=== PATIENT | female | born 1940 | race Caucasian/White ===

== ENCOUNTER 2021-12-21 08:52 | Outpatient (CLI) | payer MEDICARE, SELFPAY ==
--- NOTE | 2021-12-21 09:00 | CRLHL7_ITS ---
For Patients: As a result of the Century Cures Act, medical imaging exams and procedure reports are released immediately into your electronic medical record. You may view this report before your referring provider. If you have questions, please contact your health care provider. MYOCARDIAL PERFUSION SCAN CLINICAL HISTORY: 81-year-old female with dyspnea on exertion. TECHNIQUE: (Resting SPECT and Stress Gated SPECT with wall motion and ejection fraction) Stress: Pharmacologic - Regadenoson (0.4 mg) (IV) Dose (Stress/Rest): 32.0 mCi / 8.8 mCi Tc-99m Sestamibi Comparison: None FINDINGS: There is good uptake of the radiotracer by the left ventricle. There is no left ventricular dilatation. There is a small fixed defect identified in the apical inferolateral wall of the left ventricle consistent with a small nontransmural infarct. No significant reversible changes are identified to suggest significant ischemic. No other significant perfusion abnormalities are noted. Gated images demonstrate left ventricular ejection fraction to visually calculate at 65 percent. There is no focal wall motion abnormality. IMPRESSION: 1. No evidence for significant myocardial ischemia. 2. 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 3. Normal left ventricular ejection fraction is identified at 65 percent. This study was jointly reviewed by radiology and cardiology. Alin Mcduffie M.D. Diagnostic/Nuclear Medicine Radiologist [email or web address] PRR/logan HENRY M.D. Department of Cardiology logan/Dictated by: Alin Mcduffie MD @ 12/21/2021 2:33:00 PM (Electronically Signed)
[2021-12-21] MEDS: SODIUM CHLORIDE 0.9 % (FLUSH) 10 ML SYRINGE IVF (10:25)
[2021-12-21] MEDS: REGADENOSON 0.4 MG/5 ML SYRINGE IVP (10:25)
[2021-12-21 10:40] VITALS: BP 143/74; PULSE 69
--- NOTE | 2021-12-21 12:16 | PM.ST ---
Stress Test Note Date Time Seen by Provider: :34 Date Seen: 12/21/21 Date of test: 12/21/21 Providers Referring provider: Lance Solis Primary care provider: Andrew Rodríguez Stress test physician: Keeley Gupta Stress Test Note Stress test ordered: Lexiscan Indication for test: Dyspnea on exertion Stress test medicine: Lexiscan Results discussion: Resting EKG: Sinus bradycardia, 57 beats per minute Resting blood pressure: 172/84 Stress test: Patient had a non walking Lexiscan. She briefly felt short of breath with the medication, near the end maybe felt a sore throat but no chest pain. There were no arrhythmias, no concerning EKG changes on the stress test. She remained hypertensive during the stress test. Await nuclear images to couple this for a full formal diagnostic. Impression: Subjectively negative, objectively negative EKG portion of the Lexiscan. Follow up suggested: Await nuclear images. Patient discharged to home in stable condition.
== END 2021-12-21 08:53 | disposition home or self-care (01) ==
LOC: STRESS 08:53
PROVIDERS: PCP Family Medicine; Visit Provider Internal Medicine Cardiovascular Disease
DX: R06.09 Other forms of dyspnea (principal); I21.9 Acute myocardial infarction, unspecified
CPT/HCPCS: 78452; 93016; 93017; A9500; J2785

== ENCOUNTER 2022-01-02 12:54 | Outpatient (CLI) | payer MEDICARE, SELFPAY ==
[2022-01-02 16:05] LABS: Chloride* 104 mmol/L (96-114); Potassium* 4.7 mmol/L (3.6-5.1); Sodium* 141 mmol/L (135-149)
[2022-01-02 16:08] LABS: Blood Urea Nitrogen* 24 mg/dL (7-30); Carbon Dioxide* 25 mmol/L (20-32); Creatinine* 1.4 mg/dL (0.5-1.5); Estimated Glomerular Filt Rate 38 ml/min; Glucose* 174 mg/dL (60-115)
[2022-01-02 16:09] LABS: Calcium* 9.6 mg/dL (8.4-10.6)
[2022-01-02 16:40] LABS: Ferritin* 13.6 ng/mL (11.1-264.0)
== END 2022-01-02 12:55 | disposition home or self-care (01) ==
PROVIDERS: PCP Family Medicine; Visit Provider Family Medicine
DX: E03.9 Hypothyroidism, unspecified (principal); D50.9 Iron deficiency anemia, unspecified; I10 Essential (primary) hypertension; E11.9 Type 2 diabetes mellitus without complications; M10.9 Gout, unspecified
CPT/HCPCS: 80048; 82728; 84443

== ENCOUNTER 2022-01-03 16:02 | Emergency (ER) | payer MEDICARE, SELFPAY ==
[2022-01-03 16:17] VITALS: BP 192/72; PULSE 56; RESP 18; TEMP 36.3; O2SAT 98; BMI 36.9
--- NOTE | 2022-01-03 16:27 | ED_ITS ---
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 10 mEq (1,080 mg) tablet extended release 10 meq PO BID Qty: 60 5RF allopurinol 100 mg tablet 200 mg PO QDAY Qty: 180 2RF lamotrigine 25 mg tablet 25 mg PO QDAY polysaccharide iron complex 150 mg iron capsule 150 mg PO Q OTHER DAY <Yesenia Altman MD - Last Filed: 01/03/22 20:12> Follow Up/Referrals: Andrew Rodríguez MD [Primary Care Provider] - <Yesenia Altman MD - Last Filed: 01/03/22 20:12> Stand Alone Forms: MyHealth Info Instructions <Yesenia Altman MD - Last Filed: 01/03/22 20:12> Procedures Ultrasound Cardiac exam #1: Anatomical areas examined: parasternal long and parasternal short <Vickey Mata MD - Last Filed: 01/03/22 22:02> Indications: other <Vickey Mata MD - Last Filed: 01/03/22 22:02> Exam type: limited transthoracic echocardiogram <Vickey Mata MD - Last Filed: 01/03/22 22:02> Impression: negative exam <Vickey Mata MD - Last Filed: 01/03/22 22:02>
[2022-01-03 16:30] VITALS: BP 158/70; PULSE 53; RESP 18; O2SAT 98
[2022-01-03 16:54] VITALS: O2SAT 97
--- NOTE | 2022-01-03 16:56 | CRLHL7_ITS ---
For Patients: As a result of the Century Cures Act, medical imaging exams and procedure reports are released immediately into your electronic medical record. You may view this report before your referring provider. If you have questions, please contact your health care provider. Indication: Multiple falls Technique: Volumetric multidetector CT images of the head were obtained without the administration of low osmolar intravenous contrast. Comparison: None available Findings: There is no intra-axial or extra-axial fluid collection. There is no mass effect or midline shift. There is age-related cortical atrophy with moderate sulcal widening and ex vacuo dilatation of the lateral ventricles. There are chronic small vessel disease changes in the subcortical and periventricular white matter without lost lincoln-white differentiation. The orbits and their contents are grossly within normal limits. The bony calvarium is grossly intact. The paranasal sinuses are clear. The mastoid air cells are well aerated. Impression: Moderate age-related and chronic small-vessel disease changes of the brain without acute intracranial abnormality. Please note that all CT scans at this facility use dose modulation, iterative reconstruction, and/or weight-based dosing when appropriate to reduce radiation dose to as low as reasonably achievable. Dictated by Benja Tran MD @ 01/03/2022 5:55:25 PM (Electronically Signed)
--- NOTE | 2022-01-03 16:56 | CRLHL7_ITS ---
For Patients: As a result of the Century Cures Act, medical imaging exams and procedure reports are released immediately into your electronic medical record. You may view this report before your referring provider. If you have questions, please contact your health care provider. Indication: Multiple falls Comparison: Two-view chest August 25, 2021 Technique: Single AP view chest Findings: There is hyperinflation and chronic interstitial change. There is a mildly elevated right hemidiaphragm. There is basilar atelectasis and parenchymal scar with mild biapical pleural thickening. There is no evidence of dense consolidation or effusion. The cardiac silhouette is stably enlarged with a tortuous thoracic aorta. The bony thorax is grossly intact. Impression: Hyperinflation and chronic interstitial changes with basilar atelectasis and parenchymal scar. Dictated by Benja Tran MD @ 01/03/2022 5:56:30 PM (Electronically Signed)
[2022-01-03 17:26] LABS: Basophils Percent Auto 0.8 % (0.0-3.0); Eosinophils Percent Auto 2.9 % (0.0-7.0); Hematocrit 34.1 % (33.0-51.0); Hemoglobin* 10.2 gm/dL (12.0-16.0); Lymphocytes Percent Auto 16.5 % (20-44); Mean Corpuscular HGB Conc 30 gm/dL (32-36); Mean Corpuscular Hemoglobin 25 pg (26-34); Mean Corpuscular Volume 85 fL (80-100); Monocytes Percent Auto 7.3 % (0.0-11.0); Neutrophils Percent Auto 72.2 % (42.0-72.0); Platelet Count* 227 K/uL (140-440); Red Blood Count 4.03 m/uL (4.00-5.20); Slide Review Reflex No; White Blood Count* 6.26 K/uL (4.50-11.00)
[2022-01-03 18:00] VITALS: BP 157/65; PULSE 51; RESP 18; O2SAT 99
[2022-01-03 18:01] LABS: Chloride* 106 mmol/L (96-114); Potassium* 4.3 mmol/L (3.6-5.1); Sodium* 139 mmol/L (135-149)
[2022-01-03 18:02] LABS: Alanine Aminotransferase* 32 U/L (4-35); Alkaline Phosphatase* 92 U/L (40-150); Aspartate Amino Transferase* 45 U/L (12-35); Bilirubin Total* 0.4 mg/dL (0.1-1.5); Blood Urea Nitrogen* 20 mg/dL (7-30); Calcium* 9.3 mg/dL (8.4-10.6); Carbon Dioxide* 25 mmol/L (20-32); Creatinine* 1.3 mg/dL (0.5-1.5); Est. Creatinine Clearance* 24.79; Estimated Glomerular Filt Rate 42 ml/min; Glucose* 138 mg/dL (60-115); Total Protein* 6.7 g/dL (6.0-8.3)
[2022-01-03 18:03] LABS: C Reactive Protein* 0.5 mg/dL (0.5-1.0); Troponin I* < 0.01 ng/mL (0.01-0.04)
[2022-01-03 18:57] LABS: NT Pro B Type NatriureticPept* 623 PG/mL (0-450)
[2022-01-03 18:59] LABS: Appearance Urine Clear (Clear); Bilirubin Urine Negative (Negative); Blood Urine Negative (Negative); Color Urine Yellow (Yellow); Glucose Urine Negative (Negative); Ketones Urine Negative (Negative); Leukocyte Esterase Urine 1+ (Negative); Nitrite Urine Negative (Negative); Protein Urine Negative (Negative); Specific Gravity Urine 1.015 (1.000-1.030); Urobilinogen Urine 0.2 (0.2-1.0)
[2022-01-03 19:00] VITALS: BP 181/73; PULSE 49; RESP 18; O2SAT 98
[2022-01-03 19:27] LABS: Troponin, Point-of-Care* 0.02 ng/ml (0.01-0.04)
[2022-01-03 19:33] LABS: RBC Urine 0-2 (0-2)
[2022-01-03 19:34] LABS: Squamous Epithelial Cell Urine Few (None-Few)
== END 2022-01-03 19:59 | disposition home or self-care (01) ==
PROVIDERS: Emergency Provider Family Medicine; PCP Family Medicine
DX: D64.9 Anemia, unspecified (principal); N39.0 Urinary tract infection, site not specified
CPT/HCPCS: 36415; 70450; 71045; 80053; 81001; 83880; 84443; 84484; 85025; 86140; 87086; 93005; 93308; 94761; 99285

== ENCOUNTER 2022-02-11 23:56 | Outpatient (CLI) | payer MEDICARE, SELFPAY | END 2022-02-11 23:57 | disposition home or self-care (01) | LOC: AMB 02-23 09:10 | PROVIDERS: PCP Family Medicine; Visit Provider Family Medicine | DX: R53.1 Weakness (principal) | CPT/HCPCS: A0425; A0427 ==

== ENCOUNTER 2022-02-12 00:33 | Inpatient (IN) | payer MEDICARE, SELFPAY ==
[2022-02-12] VITALS (22 sets, daily range): BP systolic 140–190; BP diastolic 57–96; PULSE 58–73; RESP 16–28; TEMP 36.2–38.2; O2SAT 90–96; BMI 42.5
--- NOTE | 2022-02-12 00:54 | CRLHL7_ITS ---
For Patients: As a result of the Century Cures Act, medical imaging exams and procedure reports are released immediately into your electronic medical record. You may view this report before your referring provider. If you have questions, please contact your health care provider. INDICATION: Weakness. Status post fall. Dyspnea on exertion. COMPARISON: Chest single view from 01/03/2022. FINDINGS: PA and lateral views of the chest were obtained. There is stable linear scarring in the infrahilar right lower lobe. The lungs otherwise remain clear. No focal or diffuse infiltrates are present. The heart remains mildly enlarged. 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 The mediastinum is otherwise normal in appearance. Again seen are suture anchors in the humeral heads bilaterally. IMPRESSION: Stable mild cardiomegaly. No active disease seen in the chest. Dictated by Heath Garcia MD @ 02/12/2022 2:04:53 AM (Electronically Signed)
--- NOTE | 2022-02-12 00:54 | CRLHL7_ITS ---
For Patients: As a result of the Century Cures Act, medical imaging exams and procedure reports are released immediately into your electronic medical record. You may view this report before your referring provider. If you have questions, please contact your health care provider. INDICATION: Fall TECHNIQUE: Head CT without contrast. COMPARISON: January 03, 2022 FINDINGS: CSF spaces: Within normal limits for age. Brain parenchyma: There are nonspecific low attenuation white matter changes consistent with chronic microvascular disease. No sign of mass, hemorrhage, or midline shift. Skull base and calvarium: The visualized paranasal sinuses and mastoid air cells demonstrate no acute or significant findings. The visualized orbits are grossly unremarkable. No skull fractures. There is intracranial atherosclerosis. IMPRESSION: 1. No acute findings. 2. Nonspecific white matter disease, typical of chronic microvascular disease. Please note that all CT scans at this facility use dose modulation, iterative reconstruction, and/or weight-based dosing when appropriate to reduce radiation dose to as low as reasonably achievable. Dictated by Velia Hewitt MD @ 02/12/2022 1:59:30 AM (Electronically Signed)
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
[2022-02-12] MEDS: 0.9 % SODIUM CHLORIDE 1000 ml 1,000 ML IV (01:50)
[2022-02-12 02:12] LABS: HCO3 VBG 27 mmol/L (21-28); PCO2 VBG 40 mmHG (40-50); PO2 VBG 37.2 mmHG (25-47); pH VBG 7.427 (7.32-7.43)
[2022-02-12 02:14] LABS: Basophils Absolute Auto 0.06 K/uL (0.00-0.30); Basophils Percent Auto 0.7 % (0.0-3.0); Eosinophils Absolute Auto 0.07 K/uL (0.00-0.50); Eosinophils Percent Auto 0.8 % (0.0-7.0); Hemoglobin* 11.3 gm/dL (12.0-16.0); Immature Granulocytes Abs Auto 0.01 K/uL (0.00-0.30); Immature Granulocytes Pct Auto 0.1 %; Lymphocytes Percent Auto 7.5 % (20-44); Mean Corpuscular HGB Conc 30 gm/dL (32-36); Mean Corpuscular Hemoglobin 24 pg (26-34); Mean Corpuscular Volume 81 fL (80-100); Monocytes Percent Auto 7.7 % (0.0-11.0); Neutrophils Percent Auto 83.2 % (42.0-72.0); Platelet Count* 241 K/uL (140-440); RDW Coefficient of Variation % 16.6 % (11.5-15.5); Red Blood Count 4.67 m/uL (4.00-5.20); White Blood Count* 8.98 K/uL (4.50-11.00)
[2022-02-12 02:17] LABS: Slide Review Reflex No
[2022-02-12 02:27] LABS: Albumin* 4.2 g/dL (3.3-5.0)
[2022-02-12 02:28] LABS: Chloride* 108 mmol/L (96-114); Potassium* 3.7 mmol/L (3.6-5.1); Sodium* 143 mmol/L (135-149)
[2022-02-12 02:30] LABS: Aspartate Amino Transferase* 31 U/L (12-35); Bilirubin Direct* 0.1 mg/dL (0.0-0.5); Bilirubin Total* 0.9 mg/dL (0.1-1.5); Carbon Dioxide* 25 mmol/L (20-32); Creatinine* 1.3 mg/dL (0.5-1.5); Estimated Glomerular Filt Rate 42 ml/min; Total Protein* 7.2 g/dL (6.0-8.3)
[2022-02-12 02:31] LABS: Alanine Aminotransferase* 31 U/L (4-35); Alkaline Phosphatase* 93 U/L (40-150); Blood Urea Nitrogen* 21 mg/dL (7-30); Calcium* 9.3 mg/dL (8.4-10.6); Glucose* 164 mg/dL (60-115)
[2022-02-12 02:40] LABS: NT Pro B Type NatriureticPept* 1510 PG/mL (0-450)
[2022-02-12 04:16] LABS: Appearance Urine Cloudy (Clear); Bilirubin Urine Negative (Negative); Blood Urine 3+ (Negative); Color Urine Orange (Yellow); Glucose Urine Trace (Negative); Ketones Urine Negative (Negative); Leukocyte Esterase Urine 3+ (Negative); Nitrite Urine Negative (Negative); Protein Urine 2+ (Negative); Specific Gravity Urine 1.015 (1.000-1.030); Urobilinogen Urine 0.2 (0.2-1.0)
[2022-02-12 04:30] LABS: RBC Urine >100 (0-2); Squamous Epithelial Cell Urine Few (None-Few); WBC Urine 25-50 (0-5)
[2022-02-12 04:31] LABS: Bacteria Urine Moderate
[2022-02-12] MEDS: cefTRIAXone 1 GM in 0.9 % SODIUM CHLORIDE Mini-bag 100 ML IVPB (08:05)
[2022-02-12] MEDS: ARIPiprazole 10 MG TABLET 5 MG PO (08:58)
[2022-02-12] MEDS: METOPROLOL SUCCINATE (XL) 25 MG TAB PO (08:58)
[2022-02-12] MEDS: lamoTRIgine 25 MG TABLET PO ×2 (08:59→21:23)
[2022-02-12] MEDS: buPROPion XL 150 MG TABLET 300 MG PO (08:59)
[2022-02-12] MEDS: LEVOTHYROXINE 125 MCG TABLET PO (08:59)
[2022-02-12] MEDS: METFORMIN ER 500 MG PO ×2 (09:00→20:56)
--- NOTE | 2022-02-12 09:05 | ED.NURSE ---
pt sitting up in bed, eating breakfast. alert and oriented. morning meds given. pt states no longer taking januvia because it is too expensive. januvia held. pt states headache comes and goes. states did not get much sleep, tired today. pt states coming back this am. consult for social work entered.
[2022-02-12 11:12] LABS: SARS PCR* Negative SARS-CoV-2 (Negative)
--- NOTE | 2022-02-12 13:40 | PC.SOCIAL ---
Met with pt. and spouse. Pt. has been needing assistance with all ADL's at home and spouse has been providing care. Pt. has had increased weakness and fell. Spouse Haroon is unable to assist resident at home. Discussed [facility] options and they prefer placement in [place] as first choice then [place], [place], and [place] in that order. Pt.'s information has been sent to the [facility] and the [facility] to assess if they have bed availability. Pt. has [facility] coverage initially for skilled rehab but limited income. An [place] application was given to Haroon to start filling out the information.
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
[2022-02-12] MEDS: ASPIRIN 81 MG TABLET EC 324 MG PO (18:06)
--- NOTE | 2022-02-12 19:14 | PC.NURSE ---
Patient up with heavy A2 with gait belt pivot to commode. Patient alert and oriented x4, leaning to left when in bed, MD aware and ordered MRI for tomorrow. Tolerated super with no N/V but patient reports unintentional 20 lb weight loss over last month due to decreased appetite.
[2022-02-12] MEDS: ATORVASTATIN CALCIUM 40 MG TABLET PO (20:56)
[2022-02-12] MEDS: POTASSIUM CITRATE 10 MEQ TABLET.ER PO (21:19)
[2022-02-12] MEDS: ARIPiprazole 10 MG TABLET PO (21:20)
[2022-02-13] VITALS (10 sets, daily range): BP systolic 100–158; BP diastolic 43–106; PULSE 54–75; RESP 18–22; TEMP 36.6–38.2; O2SAT 92–94
[2022-02-13] MEDS: ACETAMINOPHEN 325 MG TABLET 650 MG PO ×4 (00:19→21:20)
[2022-02-13] MEDS: LEVOTHYROXINE 112 MCG TABLET PO (06:01)
[2022-02-13] MEDS: LEVOTHYROXINE 25 MCG TABLET PO (06:01)
--- NOTE | 2022-02-13 06:37 | PC.NURSE ---
23-07: pleasant and cooperative. A x 1 with nicky and walker to BS, pt states she is feeling much better this AM. Temp 100.8 at beginning of shift, Tylenol given, temp came down to 98.4.
[2022-02-13] MEDS: cefTRIAXone 1 GM in 0.9 % SODIUM CHLORIDE Mini-bag 100 ML IVPB (07:47)
[2022-02-13] MEDS: allopurinoL 100 MG TABLET 200 MG PO (09:00)
[2022-02-13] MEDS: METFORMIN ER 500 MG PO ×2 (09:00→19:48)
[2022-02-13] MEDS: AMIODARONE 200 MG TABLET PO (09:01)
[2022-02-13] MEDS: MULTIVITAMIN/MINERALS 1 TABLET 1 TAB PO (09:01)
[2022-02-13] MEDS: buPROPion XL 150 MG TABLET 300 MG PO (09:02)
[2022-02-13] MEDS: ASPIRIN 81 MG TAB.CHEW PO (09:02)
[2022-02-13] MEDS: SITAGLIPTIN PHOSPHATE 50 MG TABLET 100 MG PO (09:30)
[2022-02-13] MEDS: LORazepam 0.5 MG TABLET PO (09:30)
[2022-02-13] MEDS: POTASSIUM CITRATE 10 MEQ TABLET.ER PO ×2 (09:30→21:20)
--- NOTE | 2022-02-13 10:39 | PC.SOCIAL ---
The [facility] does not have staffing to admit at this time. The [facility] is assessing.
--- NOTE | 2022-02-13 13:53 | PM.IMPN1 ---
Progress Note: A&P Assessment and plan (1) Weakness: Status: Acute (2) Urinary tract infection: Problem details: - GNR on culture, continue Ceftriaxone Status: Acute (3) DMII (diabetes mellitus, type 2): Problem details: - stable, continue accuchecks Status: Chronic (4) Hypothyroidism: Status: Chronic (5) Atrial fibrillation: Status: Inactive (6) Chronic diastolic heart failure: Status: Chronic (7) Chronic obstructive pulmonary disease: Status: Chronic (8) Diabetic neuropathy: Status: Chronic (9) Hypertension: Status: Chronic Plan - per above - continue home meds for chronic conditions - await placement, appreciate PT/OT/SW input Subjective Date Seen: 02/13/22 Interval history: Annabella is feeling much better today, her left-sided weakness has improved significantly. MRI obtained and reassuring. She awaits placement for weakness. Exam Narrative: Exam Narrative: GEN: Alert and pleasant, sitting comfortably in bedside chair HEENT: Normal external ears, EOMIs bilaterally CV: RRR, No concerning murmurs, rubs, or gallops R: LCTA bilaterally without concerning wheezing, rales, or rhonchi Skin: No concerning skin lesions or rashes on exposed skin Neuro: No focal deficits, no resting tremor, I did not see her walk to evaluate her gait today Psych: Appropriate Const: Vital Signs, click to edit/add: Vital Signs - 24 hr 02/12/22 14:35 02/12/22 15:05 02/12/22 18:20 Temperature 98.1 F Pulse Rate 62 Pulse Rate [Left P ulse Oximeter] 66 Respiratory Rate 18 20 Blood Pressure [Le ft Arm] 145/61 H Pulse Oximetry 92 92 Oxygen Delivery Me thod Room Air Room Air 02/12/22 19:17 02/12/22 19:00 02/12/22 23:00 Temperature 98.7 F Pulse Rate 62 62 Pulse Rate [Left P ulse Oximeter] 58 L Respiratory Rate 16 Blood Pressure [Le ft Arm] 145/60 H Pulse Oximetry 95 Oxygen Delivery Me thod Room Air 02/13/22 00:19 02/12/22 23:00 02/12/22 23:00 Temperature 100.8 F H 100.8 F H Pulse Rate Pulse Rate [Left P ulse Oximeter] 63 63 Respiratory Rate 28 H 28 H Blood Pressure [Le ft Arm] 140/57 H Pulse Oximetry 94 Oxygen Delivery Me thod Room Air 02/13/22 02:45 02/13/22 02:47 02/13/22 07:36 Temperature 98.4 F 98.4 F Pulse Rate 55 L Pulse Rate [Left P ulse Oximeter] 54 L Respiratory Rate 22 Blood Pressure [Le ft Arm] 128/43 L Pulse Oximetry 92 Oxygen Delivery Me thod Room Air 02/13/22 07:00 02/13/22 07:00 02/13/22 11:20 Temperature 98.3 F 97.9 F Pulse Rate Pulse Rate [Left P ulse Oximeter] 58 L 58 L 58 L Respiratory Rate 20 20 20 Blood Pressure [Le ft Arm] 141/106 H 141/61 H Pulse Oximetry 93 94 Oxygen Delivery Me thod Room Air Room Air
--- NOTE | 2022-02-13 14:15 | PC.NURSE ---
Patient alert and oriented x4, reports headache 8/10 on pain scale, pain managed with PRN Tylenol, patient up with 2 assist and walker to chair and toilet. Patient tolerating regular diet.
--- NOTE | 2022-02-13 17:30 | CRLHL7_ITS ---
For Patients: As a result of the Century Cures Act, medical imaging exams and procedure reports are released immediately into your electronic medical record. You may view this report before your referring provider. If you have questions, please contact your health care provider. INDICATION: Left-sided ataxia. Left arm weakness. Pronator drift. TECHNIQUE: Brain MRI without contrast. The following sequences were obtained: Sagittal T1 weighted sequence. DWI and ADC mapping sequences. Axial FLAIR and HUGO T2 weighted sequences. COMPARISON: Head CT from 02/12/2022. FINDINGS: No evidence of acute ischemia. No evidence of acute or chronic intracranial blood products. Patchy FLAIR hyperintensities throughout the supratentorial white matter and brainstem, typical for chronic microvascular ischemic changes. No mass effect or herniation. No hydrocephalus or extra-axial collections. The pituitary gland, parasellar structures and optic chiasm are normal. Posterior fossa is normal. All the major intracranial vascular structures demonstrate normal flow-related signal. The orbital contents are normal. No calvarial or skull base marrow replacing process. No obstructive sinus disease. No extracranial soft tissue findings. IMPRESSION: 1. No acute infarction or other acute intracranial pathology. 2. Mild chronic microvascular ischemic changes. Dictated by Rohit Pan MD @ 02/13/2022 11:42:39 AM (Electronically Signed)
[2022-02-13] MEDS: OXYCODONE 5 MG TABLET 2.5 MG PO (17:40)
[2022-02-13] MEDS: ATORVASTATIN CALCIUM 40 MG TABLET PO (21:20)
[2022-02-13] MEDS: ARIPiprazole 10 MG TABLET PO (21:21)
[2022-02-13] MEDS: lamoTRIgine 25 MG TABLET PO (21:21)
--- NOTE | 2022-02-13 22:53 | PC.NURSE ---
End of shift note [id number] Patient alert and oriented x4, reports headache 8/10 on pain scale, pain managed with PRN Tylenol and PRN 2.5 oxy see eMAR, patient up with 2 assist and walker to chair and toilet but felt weak to BR this evening, pt. said she would feel safer using a bedside commode. Patient tolerating regular diet, pleasant and cooperative.
[2022-02-14] VITALS (10 sets, daily range): BP systolic 127–156; BP diastolic 41–76; PULSE 61–73; RESP 16–20; TEMP 36.3–36.9; O2SAT 93–97
[2022-02-14] MEDS: ACETAMINOPHEN 325 MG TABLET 650 MG PO (02:15)
[2022-02-14] MEDS: OXYCODONE 5 MG TABLET 2.5 MG PO (02:16)
--- NOTE | 2022-02-14 05:19 | PC.NURSE ---
[id number] Pt slept well during night, has own cpap, c/o headache 3, relief with prn oxy and tylenol. denies lightheaded/dizziness, chest pain or any other pain.
[2022-02-14] MEDS: LEVOTHYROXINE 112 MCG TABLET PO (06:50)
[2022-02-14] MEDS: LEVOTHYROXINE 25 MCG TABLET PO (06:50)
[2022-02-14] MEDS: SITAGLIPTIN PHOSPHATE 50 MG TABLET 100 MG PO (09:00)
[2022-02-14] MEDS: POTASSIUM CITRATE 10 MEQ TABLET.ER PO ×2 (09:01→21:08)
[2022-02-14] MEDS: ASPIRIN 81 MG TAB.CHEW PO (09:02)
[2022-02-14] MEDS: buPROPion XL 150 MG TABLET 300 MG PO (09:02)
[2022-02-14] MEDS: allopurinoL 100 MG TABLET 200 MG PO (09:03)
[2022-02-14] MEDS: AMIODARONE 200 MG TABLET PO (09:03)
[2022-02-14] MEDS: MULTIVITAMIN/MINERALS 1 TABLET 1 TAB PO (09:03)
[2022-02-14] MEDS: METOPROLOL SUCCINATE (XL) 25 MG TAB PO (09:04)
[2022-02-14] MEDS: METFORMIN ER 500 MG PO ×2 (09:05→17:34)
[2022-02-14] MEDS: cefTRIAXone 1 GM in 0.9 % SODIUM CHLORIDE Mini-bag 100 ML IVPB (09:05)
--- NOTE | 2022-02-14 12:02 | PM.IMPN1 ---
Progress Note: A&P Assessment and plan (1) Weakness: Problem details: - continue PT, OT. Will require SNF placement Status: Acute (2) Urinary tract infection: Problem details: - E Coli on urine culture, Ceftriaxone (02/12-02/14), transition to 2 days of Macrobid 02/14. GFR 40, will follow renal function Status: Acute (3) Chronic diastolic heart failure: Problem details: - stable on TTE 02/13 - mildly fluid up per Is/Os, will follow daily weights and consider low dose diuresis (patient not on diuretics as outpt, presumably 2/2 weakness and urinary sx) Final Impressions: 1. Technically limited exam. 2. Normal LV size, mildly increased wall thickness, normal global systolic function with an estimated EF of 60 - 65%. 3. Right ventricular cavity size is normal, global systolic RV function is normal. 4. The aortic valve is a functioning 23 mm Sendy 3 Ultra bioprosthesis AVR, mild stenosis and no regurgitation. Mean gradient ~ 19mmHg, DI 0.43. 5. The mitral valve is sclerotic, moderate mitral regurgitation. 6. Mitral stenosis with mildly increased mean gradient of 3.9 mmHg at a heart rate of 67. 7. Severely enlarged left atrium. 8. Grade 2 pattern of LV diastolic filling. 9. Moderately increased estimated pulmonary pressures by tricuspid regurgitation velocity and right atrial pressure (52 mmHg plus RAP). Status: Chronic (4) DMII (diabetes mellitus, type 2): Problem details: - stable, continue accuchecks Status: Chronic (5) Hypothyroidism: Problem details: - stable TSH Status: Chronic (6) Atrial fibrillation: Problem details: - rate controlled on Metoprolol - not anticoagulated at this time, was on Eliquis, stopped by GI given her anemia Status: Inactive (7) Chronic obstructive pulmonary disease: Problem details: - quiescent, not requiring supplemental O2 Status: Chronic (8) Diabetic neuropathy: Status: Chronic (9) Hypertension: Problem details: - age appropriate control Status: Chronic Plan - per above - given increased length of stay, will add renally-dosed Lovenox 02/14 - complete antibiotic course for UTI - updated at bedside, questions answered Subjective Date Seen: 02/14/22 Interval history: No acute events overnight. Annabella has concerns for hospitalist team today. Remains weak, working with PT and OT, awaiting placement. Urine culture has resulted as E Coli. Exam Narrative: Exam Narrative: GEN: Alert and oriented, sitting comfortably in bedside chair and answering questions appropriately HEENT: Normal external ears, EOMIs bilaterally CV: Rate controlled a fib, holosystolic murmur noted, baseline R: LCTA bilaterally without concerning wheezing, rales, or rhonchi, air movement adequate Ext: wwp, trace ankle edema Skin: No concerning skin lesions or rashes on exposed skin Neuro: No focal deficits, no resting tremor Psych: Appropriate Const: Vital Signs, click to edit/add: Vital Signs - 24 hr 02/13/22 15:54 02/13/22 15:00 02/13/22 19:00 Temperature 97.9 F 97.9 F Pulse Rate Pulse Rate [Left P ulse Oximeter] 63 73 75 Respiratory Rate 18 18 18 Blood Pressure [Le ft Arm] 100/61 100/61 Pulse Oximetry 94 93 Oxygen Delivery Me thod Room Air Room Air 02/13/22 23:00 02/13/22 23:00 02/14/22 01:29 Temperature 98.0 F Pulse Rate 64 Pulse Rate [Left P ulse Oximeter] 75 71 Respiratory Rate 18 20 Blood Pressure [Le ft Arm] 158/55 H Pulse Oximetry 93 Oxygen Delivery Me thod Room Air 02/14/22 03:00 02/14/22 10:37 02/14/22 07:00 Temperature Pulse Rate 64 Pulse Rate [Left P ulse Oximeter] 69 Respiratory Rate 16 18 Blood Pressure [Le ft Arm] Pulse Oximetry Oxygen Delivery Me thod 02/14/22 07:00 Temperature 98.5 F Pulse Rate Pulse Rate [Left P ulse Oximeter] 69 Respiratory Rate 18 Blood Pressure [Le ft Arm] 151/49 H Pulse Oximetry 95 Oxygen Delivery Me thod Room Air
--- NOTE | 2022-02-14 13:54 | PC.SOCIAL ---
Pt. has been accepted to the [facility] for Saturday. They have state there for survey and will not accept pt. until Saturday. Pt. will go to a shared room. Pt. and spouse are still hoping a bed will open up in [facility] before Saturday. Pt.'s spouse is bringing in a filled out MA application tomorrow with proofs to be faxed to [facility] and to be sent to the [facility] as pt. will most likely be senior living. Pt.'s spouse will transport Saturday at 10:30am.
--- NOTE | 2022-02-14 18:42 | PC.NURSE ---
Patient alert and oriented x4, patient did not void overnight bladder scanned patient at 0800 for 120 ml, Dr Noguera notified. No new orders at that time. Encouraged PO intake to patient. Patient was able to void 250 ml for day shift. Up with assist 1-2 with walker and gait belt. Patient complains of dizziness when standing, checked orthostatic BPs and BPs increased when going from sitting to standing. Dr. Noguera notified and order obtained for carotid ultrasound which will be done on 02/15 at 1015.
[2022-02-14] MEDS: ENOXAPARIN 30 MG/0.3ML INJ SUBCUT (21:08)
[2022-02-14] MEDS: lamoTRIgine 25 MG TABLET PO (21:08)
[2022-02-14] MEDS: ARIPiprazole 10 MG TABLET PO (21:08)
[2022-02-14] MEDS: ATORVASTATIN CALCIUM 40 MG TABLET PO (21:08)
[2022-02-14] MEDS: NITROFURANTOIN MONOHYD MACRO 100 MG CAPSULE PO (21:08)
[2022-02-15] MEDS: OXYCODONE 5 MG TABLET 2.5 MG PO (00:01)
[2022-02-15] MEDS: ACETAMINOPHEN 325 MG TABLET 650 MG PO (00:01)
[2022-02-15 02:34] VITALS: PULSE 58; RESP 20
--- NOTE | 2022-02-15 05:20 | PC.NURSE ---
Addendum entered by Yesenia Saba RN 02/15/22 07:05: 0600 Pt walked to br with walker, GB, 1A, denies lightheaded or dizziness entire time, tolerated activity well. Original Note: [id number] Pt slept well during night, wearing pt owned cpap, Up to br x2, dizzy with activity, 1A pivot to BSC. She does not tolerate activity well due to the lightheaded and dizziness present with movement. denies pain, did c/o OLIVAS x1, relieve with prn oxy and tylenol.
[2022-02-15] MEDS: LEVOTHYROXINE 112 MCG TABLET PO (06:06)
[2022-02-15] MEDS: LEVOTHYROXINE 25 MCG TABLET PO (06:06)
[2022-02-15 06:47] LABS: Basophils Absolute Auto 0.04 K/uL (0.00-0.30); Basophils Percent Auto 0.9 % (0.0-3.0); Eosinophils Absolute Auto 0.15 K/uL (0.00-0.50); Eosinophils Percent Auto 3.3 % (0.0-7.0); Hematocrit 30.6 % (33.0-51.0); Immature Granulocytes Abs Auto 0.02 K/uL (0.00-0.30); Immature Granulocytes Pct Auto 0.4 %; Lymphocytes Percent Auto 16.4 % (20-44); Mean Corpuscular HGB Conc 29 gm/dL (32-36); Mean Corpuscular Hemoglobin 24 pg (26-34); Mean Corpuscular Volume 83 fL (80-100); Monocytes Percent Auto 12.6 % (0.0-11.0); Neutrophils Absolute Auto 2.99 K/uL (1.7-7.0); Neutrophils Percent Auto 66.4 % (42.0-72.0); Platelet Count* 216 K/uL (140-440); RDW Coefficient of Variation % 16.9 % (11.5-15.5); White Blood Count* 4.51 K/uL (4.50-11.00)
[2022-02-15 07:00] VITALS: BP 144/65; PULSE 70; RESP 16; TEMP 37.1; O2SAT 96
[2022-02-15 07:15] LABS: Chloride* 110 mmol/L (96-114); Sodium* 143 mmol/L (135-149)
[2022-02-15 07:16] LABS: Potassium* 3.6 mmol/L (3.6-5.1)
[2022-02-15 07:18] LABS: Creatinine* 1.3 mg/dL (0.5-1.5); Est. Creatinine Clearance* 24.79; Estimated Glomerular Filt Rate 42 ml/min
[2022-02-15 07:19] LABS: Blood Urea Nitrogen* 21 mg/dL (7-30); Calcium* 8.8 mg/dL (8.4-10.6); Carbon Dioxide* 26 mmol/L (20-32); Glucose* 118 mg/dL (60-115)
[2022-02-15 07:38] LABS: Slide Review Acceptable Review (Acceptable); Slide Review Reflex Yes
[2022-02-15 09:04] VITALS: PULSE 67
[2022-02-15] MEDS: METFORMIN ER 500 MG PO (09:17)
[2022-02-15] MEDS: ASPIRIN 81 MG TAB.CHEW PO (09:18)
[2022-02-15] MEDS: allopurinoL 100 MG TABLET 200 MG PO (09:18)
[2022-02-15] MEDS: AMIODARONE 200 MG TABLET PO (09:19)
[2022-02-15] MEDS: MULTIVITAMIN/MINERALS 1 TABLET 1 TAB PO (09:19)
[2022-02-15] MEDS: buPROPion XL 150 MG TABLET 300 MG PO (09:20)
[2022-02-15] MEDS: SITAGLIPTIN PHOSPHATE 50 MG TABLET 100 MG PO (09:23)
[2022-02-15] MEDS: NITROFURANTOIN MONOHYD MACRO 100 MG CAPSULE PO (09:24)
[2022-02-15] MEDS: POTASSIUM CITRATE 10 MEQ TABLET.ER PO (09:25)
--- NOTE | 2022-02-15 09:44 | P.DS_ITS ---
DS: Providers Provider Date Seen: 02/15/22 Date of admission: 02/14/22 11:12 Primary care physician: Andrew Rodríguez MD Admitting Clinician: Lizet Noguera MD Consults: PT, OT, SW Attending Physician on discharge: Lizet Noguera MD Date of Discharge: 02/15/22 DS: Diagnosis Discharge Diagnosis (1) Weakness: Status: Acute Problem details: - continue PT, OT, requires SNF placement upon discharge (2) Urinary tract infection: Status: Acute Problem details: - E Coli on urine culture, Ceftriaxone (02/12-02/14), transition to 2 days of Macrobid 02/14. GFR 40, will follow renal function (3) Hypothyroidism: Status: Chronic Problem details: - stable TSH (4) DMII (diabetes mellitus, type 2): Status: Chronic Problem details: - stable, continue accuchecks (5) Atrial fibrillation: Status: Inactive Problem details: - rate controlled on Metoprolol - not anticoagulated at this time, was on Eliquis, stopped by GI given her anemia - will d/c on 81mg ASA daily (6) Chronic diastolic heart failure: Status: Chronic Problem details: - stable on TTE 02/13 (see below) - mildly fluid up per Is/Os, deferred diuresis given baseline dizziness (without objective orthostasis) Final Impressions: 1. Technically limited exam. 2. Normal LV size, mildly increased wall thickness, normal global systolic function with an estimated EF of 60 - 65%. 3. Right ventricular cavity size is normal, global systolic RV function is normal. 4. The aortic valve is a functioning 23 mm Sendy 3 Ultra bioprosthesis AVR, mild stenosis and no regurgitation. Mean gradient ~ 19mmHg, DI 0.43. 5. The mitral valve is sclerotic, moderate mitral regurgitation. 6. Mitral stenosis with mildly increased mean gradient of 3.9 mmHg at a heart rate of 67. 7. Severely enlarged left atrium. 8. Grade 2 pattern of LV diastolic filling. 9. Moderately increased estimated pulmonary pressures by tricuspid regurgitation velocity and right atrial pressure (52 mmHg plus RAP). DS: Summary Hospital Course Hospital Course: Very pleasant 81-year-old female, admitted to the hospital on 02/12 after a fall at home in the setting of subacute weakness. Patient was found to have an UTI on admission, positive for E coli. She was treated with 3 days of ceftriaxone, transitioned to 2 days of oral Macrobid. She was followed by therapies, who recommended SNF placement upon discharge. Patient's comorbidities remained stable, she did have intermittent dizziness without orthostasis. MRI of the head was obtained (for dizziness and also a leftward lean upon admission), reassuring. TTE findings above. ASA 81 mg was added to her regimen, in addition to course of Macrobid. No other changes made to home medications. Patient discharged to the [facility] in [place], [place] in improved condition on 02/15/2022. Status at Discharge Functional status at discharge: uses cane/walker Overall status at discharge: patient is progressing back to baseline Time Spent with Patient Time attestation: Total time spent providing and/or coordinating discharge services: Time spent: Greater than 30 minutes Specific discharge activities: Care coordination, discharge medications, discharge planning Exam Narrative: Exam Narrative: GEN: Alert and oriented, sitting comfortably in bedside chair and answering questions appropriately HEENT: Normal external ears, EOMIs bilaterally CV: Rate controlled a fib, holosystolic murmur, stable R: LCTA bilaterally without concerning wheezing, rales, or rhonchi, air movement adequate Ext: wwp, trace ankle edema Skin: No concerning skin lesions or rashes on exposed skin Neuro: No focal deficits, no resting tremor Psych: Appropriate?? Const: Vital Signs, click to edit/add: Vital Signs - 24 hr 02/14/22 10:37 02/14/22 11:00 02/14/22 16:15 Temperature 98.1 F Pulse Rate 64 62 Pulse Rate [Left P ulse Oximeter] 70 Respiratory Rate 20 Blood Pressure [Le ft Arm] Blood Pressure [Ri ght Arm] 156/76 H Pulse Oximetry 94 Oxygen Delivery Me thod Room Air 02/14/22 15:00 02/14/22 15:00 02/14/22 19:00 Temperature 97.3 F L 98.5 F Pulse Rate Pulse Rate [Left P ulse Oximeter] 73 73 66 Respiratory Rate 20 20 18 Blood Pressure [Le ft Arm] 155/60 H Blood Pressure [Ri ght Arm] 127/41 L Pulse Oximetry 93 95 Oxygen Delivery Me thod Room Air Room Air 02/14/22 23:00 02/14/22 23:00 02/14/22 23:26 Temperature 98.5 F Pulse Rate 61 Pulse Rate [Left P ulse Oximeter] 66 63 Respiratory Rate 18 18 Blood Pressure [Le ft Arm] 148/55 H Blood Pressure [Ri ght Arm] Pulse Oximetry 97 Oxygen Delivery Me thod CPAP 02/15/22 02:34 02/15/22 09:04 Temperature Pulse Rate 67 Pulse Rate [Left P ulse Oximeter] 58 L Respiratory Rate 20 Blood Pressure [Le ft Arm] Blood Pressure [Ri ght Arm] Pulse Oximetry Oxygen Delivery Me thod CPAP DS: Data Data Completed and Pending Labs on day of discharge: Labs from last 24 hours 02/15/22 02/15/22 05:34 05:34 WBC 4.51 RBC 3.70 L Hgb 9.0 L Hct 30.6 L MCV 83 MCH 24 L MCHC 29 L RDW Coeff of Aris 16.9 H Plt Count 216 Neut % (Auto) 66.4 Lymph % (Auto) 16.4 L Addison % (Auto) 12.6 H Eos % (Auto) 3.3 Baso % (Auto) 0.9 Neut # (Auto) 2.99 Lymph # (Auto) 0.70 L Addison # (Auto) 0.60 Eos # (Auto) 0.15 Baso # (Auto) 0.04 Abs Immat Gran (auto) 0.02 Imm/Tot Granulo (auto) 0.4 Diff Slide Review Acceptable Review Sodium 143 Potassium 3.6 Chloride 110 Carbon Dioxide 26 BUN 21 Creatinine 1.3 Estimated Creat Clear 24.79 Estimated GFR 42 Glucose 118 H Calcium 8.8 Preliminary micro results at discharge 02/13/22 05:55 Blood Culture - Preliminary Blood NO GROWTH AFTER 48 HOURS 02/13/22 06:07 Blood Culture - Preliminary Blood NO GROWTH AFTER 48 HOURS Discharge Plan Discharge Disposition: er [facility] Date of Admission: 02/14/22 11:12 Attending Provider on Discharge: Lizet Noguera Primary Care Provider: Andrew Rodríguez Condition: Improved Anticipated Discharge Date/Time: 02/15/22 10:30 Discharge Medications: New aspirin [Children's Aspirin] 81 mg Tablet,Chewable 81 mg PO DAILY Qty: 30 0RF oxycodone 5 mg Tablet 2.5 mg PO Q8H PRN (Reason: headache) Qty: 30 0RF nitrofurantoin monohyd/m-cryst 100 mg Capsule 100 mg PO BID 2 Days Qty: 4 0RF Rx Instructions: 2 more days to complete 5 day course of treatment for UTI Continued metformin 500 mg tablet extended release 24 hr 500 mg PO BIDWM alprazolam [Xanax] 0.5 mg tablet 0.5 mg PO BID PRN Januvia 100 mg tablet 100 mg PO DAILY Label Comments: TAKE 1 TABLET BY MOUTH DAILY. levothyroxine 137 mcg tablet 137 mcg PO DAILY allopurinol 100 mg tablet 200 mg PO DAILY aripiprazole 10 mg tablet 10 mg PO HS metoprolol succinate 25 mg tablet extended release 24 hr 25 mg PO QDAY atorvastatin 40 mg tablet 40 mg PO HS amiodarone 200 mg tablet 200 mg PO DAILY acetaminophen 325 mg tablet 650 mg PO Q4H PRN Saccharomyces boulardii 250 mg capsule 250 mg PO BID bupropion HCl 300 mg tablet extended release 24 hr 300 mg PO QAM multivitamin Tablet 1 tab PO DAILY potassium citrate 10 mEq (1,080 mg) tablet extended release 10 meq PO BID Qty: 60 5RF lamotrigine 25 mg tablet 25 mg PO HS polysaccharide iron complex 150 mg iron capsule 150 mg PO 3XW Rx Instructions: mon,wed,fri Discharge Orders: Discharge Order (Routine); Ordered 02/15/22 Ordered By: Lizet Noguera Additional Instructions: Stay on the Aspirin, 81 mg/day, for now. Oxycodone + Tylenol as needed for severe headache. 2 more days of antibiotic for your UTI. Activity Level: Activity as Tolerated Discharge Diet: Diabetic Follow Up Appointments: Andrew Rodríguez MD [Primary Care Provider] - Admit to: SNF Discharge Potential: Good Length of Stay: <30 days Can use facility standing orders?: Yes Code Status: DNR/DNI Rehab Potential: Good Therapy: Physical Therapy and Occupational Therapy Therapy Orders: Evaluate and Treat and ADL Oxygen: No Urinary Catheter: No Glucose Checks: BID Next INR: n/a Orders are good >30 days: Yes Signature: Lizet Noguera MD
[2022-02-15 10:15] VITALS: BP 144/65; PULSE 70; RESP 16; TEMP 37.1
--- NOTE | 2022-02-15 11:13 | PC.NURSE ---
Patient alert and oriented x4, tolerates a regular diet, up with A1 with walker and gait belt. Transferred via wheelchair with , report given to Coco at [facility]. IV removed at discharge.
--- NOTE | 2022-02-15 13:27 | PC.SOCIAL ---
Addendum entered by KESHA Ponce 02/15/22 15:30: Powder Mixer reviewed and agrees with this note. Original Note: Discharge Planning: [facility] called this morning with information that they could accept pt. today. Called pt.'s spouse to discuss discharge, and he was able to transport pt. to [facility] this morning at 10:30. Social work faxed completed MA application to [facility] and [facility]. PAS completed #[id number].
--- NOTE | 2022-02-16 15:27 | PC.SOCIAL ---
Social work: Received call from pt's Haroon today, stating that he has taken her out of [facility] home in [place] because he did not feel she was well taken care of there. Shared with option to contact [facility] Office or the Department of health with any concerns. states he has already done that. states he will care for pt at their home until he can get her into the [facility]. states he has already been discussing this with Berenice at [facility] and expects her to be admitted there on Saturday. is aware he can contact social work on Saturday if any additional information regarding pt's stay at the hospital is needed for the [facility] on Saturday. is not requesting any assistance from social work with placement at this time.
== END 2022-02-15 11:00 | DRG 690 ==
LOC: ED 13:04 → MEDSURG 13:25
PROVIDERS: Admitting Provider Family Medicine; Emergency Provider Family Medicine; PCP Family Medicine; Visit Provider Family Medicine
DX: N39.0 Urinary tract infection, site not specified (principal); Z68.41 Body mass index [BMI] 40.0-44.9, adult; I50.32 Chronic diastolic (congestive) heart failure; R53.1 Weakness; I11.0 Hypertensive heart disease with heart failure; B96.89 Other specified bacterial agents as the cause of diseases classified elsewhere; R42 Dizziness and giddiness; I48.91 Unspecified atrial fibrillation; E11.40 Type 2 diabetes mellitus with diabetic neuropathy, unspecified; J44.9 Chronic obstructive pulmonary disease, unspecified; G47.33 Obstructive sleep apnea (adult) (pediatric); Z95.2 Presence of prosthetic heart valve; I08.3 Combined rheumatic disorders of mitral, aortic and tricuspid valves; D50.9 Iron deficiency anemia, unspecified; E66.01 Morbid (severe) obesity due to excess calories; N13.9 Obstructive and reflux uropathy, unspecified; Z87.442 Personal history of urinary calculi; M47.896 Other spondylosis, lumbar region; K21.9 Gastro-esophageal reflux disease without esophagitis; M10.9 Gout, unspecified; K58.9 Irritable bowel syndrome, unspecified; E03.9 Hypothyroidism, unspecified
CPT/HCPCS: 36415; 51798; 70450; 70551; 71046; 80048; 80076; 81001; 82803; 82962; 83880; 85025; 87040; 87086; 87186; 87635; 93005; 93306; 97110; 97116; 97162; 97165; 97530; 97535; 99284; 99285; G0378; A9153; A9270; J0696; J1650; J7030

== ENCOUNTER 2022-04-07 15:03 | Outpatient (CLI) | payer MEDICARE, SELFPAY | END 2022-04-07 15:04 | disposition home or self-care (01) | LOC: AMB 04-10 13:11 | PROVIDERS: PCP Family Medicine; Visit Provider Family Medicine | DX: R53.1 Weakness (principal) | CPT/HCPCS: A0425; A0427 ==

== ENCOUNTER 2022-04-07 15:20 | Inpatient (IN) | payer MEDICARE, SELFPAY ==
[2022-04-07] VITALS (26 sets, daily range): BP systolic 116–174; BP diastolic 36–67; PULSE 61–70; RESP 16–22; TEMP 36.2–37.2; O2SAT 90–98; BMI 36.3; BMI 36.0
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
--- NOTE | 2022-04-07 15:41 | CRLHL7_ITS ---
For Patients: As a result of the Cures Act, medical imaging exams and procedure reports are released immediately into your electronic medical record. You may view this report before your referring provider. If you have questions, please contact your health care provider. HISTORY: Weakness. Fall. TECHNIQUE: One view of the chest. COMPARISON: 02/12/2022. FINDINGS: Cardiomegaly. There is mild prominence of the pulmonary interstitium which may indicate an element of mild interstitial edema. There is no consolidation. No pneumothorax or pleural effusion. Prior bilateral rotator cuff repairs. Degenerative changes of the shoulders and spine. IMPRESSION: 1. Cardiomegaly. 2. Mild pulmonary interstitial prominence may indicate an element of mild interstitial edema. No focal lung infiltrate. Dictated by Clemente Newman MD @ 04/07/2022 5:52:42 PM Dictated by: Clemente Newman MD @ 04/07/2022 17:52:46 (Electronically Signed)
--- NOTE | 2022-04-07 15:42 | CRLHL7_ITS ---
For Patients: As a result of the Cures Act, medical imaging exams and procedure reports are released immediately into your electronic medical record. You may view this report before your referring provider. If you have questions, please contact your health care provider. HISTORY: Fall. TECHNIQUE: Two views of the right shoulder. COMPARISON: No prior. FINDINGS: There are anchors within the proximal humerus related to prior rotator cuff repair. There is no acute proximal humeral fracture. No glenohumeral joint dislocation. There are AC joint degenerative changes present. IMPRESSION: 1. No acute fracture or dislocation. 2. Degenerative changes. 3. Prior rotator cuff repair. Dictated by Clemente Newman MD @ 04/07/2022 5:51:17 PM Dictated by: Clemente Newman MD @ 04/07/2022 17:51:20 (Electronically Signed)
[2022-04-07 16:41] LABS: PCR FLU A Negative PCR FLU A (Negative); PCR FLU B Negative PCR FLU B (Negative); PCR RSV Negative PCR RSV (Negative)
[2022-04-07 16:49] LABS: Lactate* 5.4 mmol/L (0.5-1.9)
[2022-04-07 17:00] LABS: Basophils Percent Auto 0.1 % (0.0-3.0); Eosinophils Percent Auto 0.1 % (0.0-7.0); Hematocrit 19.3 % (33.0-51.0); Immature Granulocytes Pct Auto 0.4 %; Lymphocytes Percent Auto 4.3 % (20-44); Mean Corpuscular HGB Conc 28 gm/dL (32-36); Mean Corpuscular Hemoglobin 21 pg (26-34); Mean Corpuscular Volume 77 fL (80-100); Monocytes Percent Auto 6.7 % (0.0-11.0); Neutrophils Percent Auto 88.4 % (42.0-72.0); Platelet Count* 411 K/uL (140-440); RDW Coefficient of Variation % 17.8 % (11.5-15.5); Red Blood Count 2.51 m/uL (4.00-5.20)
[2022-04-07] MEDS: 0.9 % SODIUM CHLORIDE 1000 ml 1,000 ML IV (17:00)
[2022-04-07 17:14] LABS: SARS PCR* Negative SARS-CoV-2 (Negative)
[2022-04-07 17:18] LABS: Albumin* 3.8 g/dL (3.3-5.0); Chloride* 107 mmol/L (96-114)
[2022-04-07 17:19] LABS: Potassium* 4.5 mmol/L (3.6-5.1); Sodium* 141 mmol/L (135-149)
[2022-04-07 17:21] LABS: Creatinine* 1.1 mg/dL (0.5-1.5); Estimated Glomerular Filt Rate 51 ml/min; Hemoglobin* 5.3 gm/dL (12.0-16.0); Slide Review Reflex Yes
[2022-04-07 17:22] LABS: Alanine Aminotransferase* 21 U/L (4-35); Alkaline Phosphatase* 64 U/L (40-150); Aspartate Amino Transferase* 25 U/L (12-35); Bilirubin Direct* 0.2 mg/dL (0.0-0.5); Bilirubin Total* 0.5 mg/dL (0.1-1.5); Blood Urea Nitrogen* 26 mg/dL (7-30); Calcium* 9.1 mg/dL (8.4-10.6); Carbon Dioxide* 23 mmol/L (20-32); Glucose* 222 mg/dL (60-115); Total Protein* 6.4 g/dL (6.0-8.3)
[2022-04-07 17:25] LABS: C Reactive Protein* 3.4 mg/dL (0.5-1.0)
[2022-04-07 17:31] LABS: NT Pro B Type NatriureticPept* 4150 pg/mL
[2022-04-07 17:34] LABS: Troponin I* 0.02 ng/mL (0.01-0.04)
[2022-04-07 17:35] LABS: Erythrocyte SedimentationRate* 81 mm/hr (2-20)
[2022-04-07 18:00] LABS: Bilirubin Urine Negative (Negative); Blood Urine 1+ (Negative); Color Urine Yellow (Yellow); Glucose Urine Trace (Negative); Ketones Urine Trace (Negative); Leukocyte Esterase Urine 1+ (Negative); Nitrite Urine Positive (Negative); Protein Urine 2+ (Negative); Specific Gravity Urine 1.025 (1.000-1.030); Urobilinogen Urine 0.2 (0.2-1.0)
[2022-04-07 18:01] LABS: Appearance Urine Slightly Cloudy (Clear)
[2022-04-07 18:31] LABS: Slide Review Acceptable Review (Acceptable)
[2022-04-07 18:42] LABS: Bacteria Urine Many; Squamous Epithelial Cell Urine Few (None-Few); WBC Urine >100 (0-5)
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
[2022-04-07] MEDS: SODIUM CHLORIDE 0.9 % (FLUSH) 10 ML SYRINGE 5 ML IVF (21:42)
[2022-04-07 22:01] LABS: Lactate* 2.1 mmol/L (0.5-1.9)
[2022-04-07] MEDS: METOPROLOL SUCCINATE (XL) 25 MG TAB PO (22:48)
[2022-04-07] MEDS: FUROSEMIDE 10 MG/ML inj 40 MG IVP (23:02)
[2022-04-08] VITALS (13 sets, daily range): BP systolic 108–188; BP diastolic 46–82; PULSE 62–74; RESP 16–28; TEMP 36.6–37.7; O2SAT 88–100
--- NOTE | 2022-04-08 06:25 | PC.NURSE ---
Critical lab D: Positive blood culture growing Gram negative rods A: Ramiro hospitalist called to update R: Ramiro instructed to defer to AM provider
[2022-04-08] MEDS: LEVOTHYROXINE 112 MCG TABLET PO (06:39)
[2022-04-08] MEDS: LEVOTHYROXINE 25 MCG TABLET PO (06:39)
--- NOTE | 2022-04-08 06:49 | PC.NURSE ---
Status [id number] Alert and oriented but forgetful. Pleasant and cooperative. Reports right shoulder discomfort but denies need for any intervention. 2 units of PRBCs given. LS with wheezing and crackles noted. Tachypneic. IV Lasix given between units. Breathing improved after blood completed. BP elevated. HR stable. Requiring 1-2L of supplemental oxygen to maintain sats >88%. Pt weak and fatigued with activity. Up to bedside commode twice with assist of 1-2. Transitioned to bedpan for frequent voiding after Lasix given. Hgb recheck for AM. Intermittent resting between cares. ??
[2022-04-08 08:37] LABS: Basophils Percent Auto 0.1 % (0.0-3.0); Eosinophils Percent Auto 0.1 % (0.0-7.0); Hematocrit 25.9 % (33.0-51.0); Immature Granulocytes Pct Auto 0.3 %; Mean Corpuscular HGB Conc 30 gm/dL (32-36); Mean Corpuscular Hemoglobin 23 pg (26-34); Mean Corpuscular Volume 76 fL (80-100); Monocytes Percent Auto 6.6 % (0.0-11.0); Neutrophils Percent Auto 87.9 % (42.0-72.0); Platelet Count* 354 K/uL (140-440); RDW Coefficient of Variation % 17.4 % (11.5-15.5); White Blood Count* 14.72 K/uL (4.50-11.00)
[2022-04-08 08:40] LABS: Hemoglobin* 7.7 gm/dL (12.0-16.0)
[2022-04-08 08:42] LABS: Slide Review Acceptable Review (Acceptable); Slide Review Reflex Yes
[2022-04-08 08:50] LABS: Chloride* 106 mmol/L (96-114); Potassium* 3.1 mmol/L (3.6-5.1); Sodium* 140 mmol/L (135-149)
[2022-04-08 08:52] LABS: Est. Creatinine Clearance* 32.23; Estimated Glomerular Filt Rate 57 ml/min
[2022-04-08 08:53] LABS: Blood Urea Nitrogen* 23 mg/dL (7-30); Carbon Dioxide* 25 mmol/L (20-32); Glucose* 176 mg/dL (60-115)
[2022-04-08 08:54] LABS: Calcium* 8.7 mg/dL (8.4-10.6)
[2022-04-08 08:56] LABS: C Reactive Protein* 6.7 mg/dL (0.5-1.0)
[2022-04-08] MEDS: OMEPRAZOLE 20 MG CAPSULE DR PO ×2 (08:59→20:38)
[2022-04-08] MEDS: METFORMIN ER 500 MG PO ×2 (09:00→17:19)
[2022-04-08] MEDS: buPROPion XL 150 MG TABLET 300 MG PO (09:00)
[2022-04-08] MEDS: METOPROLOL SUCCINATE (XL) 25 MG TAB PO (09:00)
[2022-04-08] MEDS: allopurinoL 100 MG TABLET 200 MG PO (09:00)
[2022-04-08] MEDS: AMIODARONE 200 MG TABLET PO (09:00)
[2022-04-08] MEDS: SODIUM CHLORIDE 0.9 % (FLUSH) 10 ML SYRINGE 5 ML IVF ×2 (09:01→20:45)
[2022-04-08] MEDS: ACETAMINOPHEN 325 MG TABLET 650 MG PO ×2 (09:01→15:06)
[2022-04-08] MEDS: SITAGLIPTIN PHOSPHATE 50 MG TABLET 100 MG PO (09:13)
[2022-04-08] MEDS: POTASSIUM CITRATE 10 MEQ TABLET.ER PO ×2 (09:13→20:50)
[2022-04-08] MEDS: CEFEPIME HCL 2 GM in 0.9 % SODIUM CHLORIDE Mini-bag 100 ML IVPB ×2 (09:49→17:18)
[2022-04-08] MEDS: POTASSIUM BICARB 25 MEQ EFFERVESCENT TAB 50 MEQ PO (09:49)
[2022-04-08 10:13] LABS: Lactate* 2.7 mmol/L (0.5-1.9)
[2022-04-08] MEDS: LACTATED RINGERS 1000 ML 1,000 ML 75 ML IV (15:06)
--- NOTE | 2022-04-08 15:19 | P.IMPN_ITS ---
Progress Note: A&P Assessment and plan (1) Gram-negative bacteremia: Problem details: One positive blood culture with Gram-negative rods. Possibly related to UTI. Start cefepime pending cultures and clinical course Status: Acute (2) Acute on chronic anemia: Problem details: With history of melena likely upper GI bleeding. Is on chronic iron therapy. Colonoscopy showed diverticuli but otherwise unremarkable 2 years ago. No need to repeat colonoscopy unless evidence of ongoing lower GI bleeding Status: Acute (3) Melena: Problem details: On oral iron therapy. Status: Acute (4) Weakness: Problem details: - PT, OT evaluation Status: Acute (5) Chronic anemia: Problem details: Possibly multifactorial including iron deficiency, acute and chronic blood loss, Status: Chronic (6) Iron deficiency anemia: Problem details: Probably needs intravenous iron Status: Chronic (7) Obstructive sleep apnea syndrome: Status: Chronic (8) Chronic diastolic heart failure: Problem details: - TTE 02/13 Final Impressions: 1. Technically limited exam. 2. Normal LV size, mildly increased wall thickness, normal global systolic function with an estimated EF of 60 - 65%. 3. Right ventricular cavity size is normal, global systolic RV function is normal. 4. The aortic valve is a functioning 23 mm Sendy 3 Ultra bioprosthesis AVR, mild stenosis and no regurgitation. Mean gradient ~ 19mmHg, DI 0.43. 5. The mitral valve is sclerotic, moderate mitral regurgitation. 6. Mitral stenosis with mildly increased mean gradient of 3.9 mmHg at a heart rate of 67. 7. Severely enlarged left atrium. 8. Grade 2 pattern of LV diastolic filling. 9. Moderately increased estimated pulmonary pressures by tricuspid regurgitation velocity and right atrial pressure (52 mmHg plus RAP). - some crackles in RLL and interstitial fluid on CXR. Appears SOB. Will give lasix between units of blood. Check K and Cr in am. Status: Chronic (9) Chronic obstructive pulmonary disease: Problem details: - quiescent Status: Chronic (10) DMII (diabetes mellitus, type 2): Problem details: Continue home meds and start ISS Status: Chronic (11) Hypothyroidism: Problem details: Continue home med Status: Chronic (12) Hypertension: Problem details: No hypotension. Continue home meds. Status: Chronic Plan Patient is admitted to the hospital for treatment of bacteremia, anemia with acute blood loss. IV antibiotics pending culture and clinical course. Blood transfusion with upper endoscopy and monitoring for ongoing bleeding. Start PPI Time Spent With Patient Total time spent: Total time spent today is 45 minutes, 30 minutes in coordination care and discussing with patient and other providers management of GI bleeding and bacteremia Subjective Date Seen: 04/08/22 Interval history: 81-year-old female seen in followup of hospital admission after a fall at home. She does not think she had syncope at the time of the fall. The only injury that she could identify was her right shoulder. She had previously injured that on another fall and it is hurting more today. Radiographs did not show any acute injury though likely an old rotator cuff tear. In the emergency department she was found to be anemic. He has known chronic anemia with a hemoglobin around 10. She is known to be iron deficient as well. She has had chronic iron supplementation and reports chronic black stools. She has not had any bloody stools. She has previously had evaluation for her anemia 2 years ago with upper and lower endoscopy which were unremarkable other than the finding of diverticulosis. She has had no hematemesis. She has had no syncope, chest pain or new dyspnea. She was hospitalized after a fall earlier this winter. She was then in a [facility] for some rehabilitation and adjust come home from the [facility] about 4 days ago. On her previous hospitalization she is also identified with a UTI due to E coli which was sensitive to all antibiotics except intermediate sensitivity to ampicillin. Since then she notes that she has generally been d oing well without symptoms of urinary infection except recently she has noted increased urinary frequency. She has not had fever, flank pain or dysuria. She has had no other symptoms of illness recently. She felt well prior to her fall. Exam Narrative: Exam Narrative: She is alert and appears in no distress. She is oriented to her circumstances. Oropharynx is normal. Neck is supple without mass or adenopathy. Respirations are clear to auscultation. Breathing is unlabored. Cardiovascular: S1, S2, regular rate and rhythm. No murmur gallop or rub. Abdomen: Bowel sounds active. Abdomen is soft without tenderness or mass external genitalia normal. Extremities with 1+ edema bilaterally. Good peripheral perfusion. Const: Vital Signs, click to edit/add: Vital Signs - 24 hr 04/07/22 15:22 04/07/22 16:25 04/07/22 16:31 Temperature 97.2 F L 97.6 F Pulse Rate Pulse Rate [Pulse Oximeter] Pulse Rate [Right] 67 63 Respiratory Rate 18 16 Blood Pressure Blood Pressure [Le ft Arm] Blood Pressure [Le ft Upper Arm] 126/50 L 116/53 L Blood Pressure [Ri ght Arm] Pulse Oximetry 94 95 95 Oxygen Delivery Me thod Room Air Room Air Oxygen Flow Rate 04/07/22 16:05 04/07/22 16:06 04/07/22 16:17 Temperature Pulse Rate 63 63 64 Pulse Rate [Pulse Oximeter] Pulse Rate [Right] Respiratory Rate Blood Pressure 116/36 L Blood Pressure [Le ft Arm] Blood Pressure [Le ft Upper Arm] Blood Pressure [Ri ght Arm] Pulse Oximetry 94 93 92 Oxygen Delivery Me thod Oxygen Flow Rate 04/07/22 16:30 04/07/22 16:32 04/07/22 16:45 Temperature Pulse Rate 64 64 64 Pulse Rate [Pulse Oximeter] Pulse Rate [Right] Respiratory Rate Blood Pressure 116/53 L Blood Pressure [Le ft Arm] Blood Pressure [Le ft Upper Arm] Blood Pressure [Ri ght Arm] Pulse Oximetry 96 93 92 Oxygen Delivery Me thod Oxygen Flow Rate 04/07/22 17:56 04/07/22 17:57 04/07/22 18:11 Temperature Pulse Rate 70 68 63 Pulse Rate [Pulse Oximeter] Pulse Rate [Right] Respiratory Rate Blood Pressure 122/57 L 126/56 L Blood Pressure [Le ft Arm] Blood Pressure [Le ft Upper Arm] Blood Pressure [Ri ght Arm] Pulse Oximetry 91 94 90 Oxygen Delivery Me thod Oxygen Flow Rate 04/07/22 18:12 04/07/22 18:15 04/07/22 18:30 Temperature Pulse Rate 63 64 64 Pulse Rate [Pulse Oximeter] Pulse Rate [Right] Respiratory Rate Blood Pressure Blood Pressure [Le ft Arm] Blood Pressure [Le ft Upper Arm] Blood Pressure [Ri ght Arm] Pulse Oximetry 94 94 91 Oxygen Delivery Me thod Oxygen Flow Rate 04/07/22 18:32 04/07/22 18:45 04/07/22 19:53 Temperature 98.5 F Pulse Rate 63 62 61 Pulse Rate [Pulse Oximeter] Pulse Rate [Right] Respiratory Rate 20 Blood Pressure 135/56 L 145/61 H Blood Pressure [Le ft Arm] Blood Pressure [Le ft Upper Arm] Blood Pressure [Ri ght Arm] Pulse Oximetry 92 92 98 Oxygen Delivery Me thod Oxygen Flow Rate 04/07/22 20:04 04/07/22 20:10 04/07/22 20:55 Temperature 98.5 F 98.8 F 98.6 F Pulse Rate 61 63 Pulse Rate [Pulse Oximeter] 61 Pulse Rate [Right] Respiratory Rate 20 18 18 Blood Pressure 137/51 L 154/63 H Blood Pressure [Le ft Arm] Blood Pressure [Le ft Upper Arm] Blood Pressure [Ri ght Arm] 145/61 H Pulse Oximetry 97 95 93 Oxygen Delivery Me thod Nasal Cannula Oxygen Flow Rate 2 04/07/22 21:55 04/07/22 22:57 04/07/22 23:17 Temperature 97.8 F 98.9 F 98.9 F Pulse Rate 63 64 62 Pulse Rate [Pulse Oximeter] Pulse Rate [Right] Respiratory Rate 20 20 20 Blood Pressure 161/66 H 156/67 H 171/61 H Blood Pressure [Le ft Arm] Blood Pressure [Le ft Upper Arm] Blood Pressure [Ri ght Arm] Pulse Oximetry 94 94 94 Oxygen Delivery Me thod Oxygen Flow Rate 04/07/22 23:00 04/07/22 23:00 04/07/22 23:44 Temperature 98.9 F 98.4 F Pulse Rate 69 Pulse Rate [Pulse Oximeter] 63 Pulse Rate [Right] Respiratory Rate 20 20 22 Blood Pressure 174/65 H Blood Pressure [Le ft Arm] Blood Pressure [Le ft Upper Arm] Blood Pressure [Ri ght Arm] 171/61 H Pulse Oximetry 93 93 90 Oxygen Delivery Me thod Nasal Cannula Nasal Cannula Oxygen Flow Rate 0.5 0.5 04/08/22 00:27 04/08/22 01:26 04/08/22 02:25 Temperature 99.8 F H 98 F 98.4 F Pulse Rate 68 74 68 Pulse Rate [Pulse Oximeter] Pulse Rate [Right] Respiratory Rate 22 28 H 28 H Blood Pressure 171/73 H 188/80 H 152/66 H Blood Pressure [Le ft Arm] Blood Pressure [Le ft Upper Arm] Blood Pressure [Ri ght Arm] Pulse Oximetry 91 88 90 Oxygen Delivery Me thod Oxygen Flow Rate 04/08/22 03:08 04/08/22 03:45 04/08/22 03:00 Temperature 98 F 98.7 F 98.7 F Pulse Rate 65 64 Pulse Rate [Pulse Oximeter] 64 Pulse Rate [Right] Respiratory Rate 24 24 24 Blood Pressure 171/82 H 166/72 H Blood Pressure [Le ft Arm] 166/72 H Blood Pressure [Le ft Upper Arm] Blood Pressure [Ri ght Arm] Pulse Oximetry 92 92 92 Oxygen Delivery Me thod Nasal Cannula Oxygen Flow Rate 1 04/08/22 08:02 04/08/22 08:02 04/08/22 07:25 Temperature 98.3 F Pulse Rate Pulse Rate [Pulse Oximeter] 63 63 Pulse Rate [Right] Respiratory Rate 20 20 20 Blood Pressure Blood Pressure [Le ft Arm] 146/65 H Blood Pressure [Le ft Upper Arm] Blood Pressure [Ri ght Arm] Pulse Oximetry 92 92 Oxygen Delivery Me thod Nasal Cannula Nasal Cannula Oxygen Flow Rate 1 1 04/08/22 11:10 04/08/22 15:03 Temperature 98.3 F 98.1 F Pulse Rate Pulse Rate [Pulse Oximeter] 62 69 Pulse Rate [Right] Respiratory Rate 18 16 Blood Pressure Blood Pressure [Le ft Arm] 154/81 H 137/58 L Blood Pressure [Le ft Upper Arm] Blood Pressure [Ri ght Arm] Pulse Oximetry 93 93 Oxygen Delivery Me thod Room Air Room Air Oxygen Flow Rate Documenting provider has reviewed patient's vital signs: yes Labs Labs: Laboratory Results - last 24 hr 04/07/22 04/07/22 04/07/22 14:46 15:41 16:42 WBC 13.80 H RBC 2.51 L Hgb 5.3 L* Hct 19.3 L MCV 77 L MCH 21 L MCHC 28 L RDW Coeff of Aris 17.8 H Plt Count 411 Neut % (Auto) 88.4 H Lymph % (Auto) 4.3 L [place] % (Auto) 6.7 Eos % (Auto) 0.1 Baso % (Auto) 0.1 Neut # (Auto) 12.20 H Lymph # (Auto) 0.60 L [place] # (Auto) 0.90 Eos # (Auto) 0.00 Baso # (Auto) 0.00 Diff Slide Review Acceptable Review ESR Sodium Potassium Chloride Carbon Dioxide BUN Creatinine Estimated Creat Clear Estimated GFR Glucose Lactate Calcium Total Bilirubin Direct Bilirubin AST ALT Alkaline Phosphatase Troponin I C-Reactive Protein NT-Pro-B Natriuret Pep Total Protein Albumin TSH Urine Color Yellow Urine Appearance Slightly Cloudy A Urine pH 6.0 Ur Specific [place] 1.025 Urine Protein 2+ A Urine Glucose (UA) Trace A Urine Ketones Trace A Urine Blood 1+ A Urine Nitrite Positive A Urine Bilirubin Negative Urine Urobilinogen 0.2 Ur Leukocyte Esterase 1+ A Urine RBC 2-5 A Urine WBC >100 A Ur Squamous Epith Cells Few Urine Bacteria Many A SARS-CoV-2 (PCR) Negative SARS-CoV-2 Influenza Type A (PCR) Negative PCR FLU A Influenza Type B (PCR) Negative PCR FLU B RSV (PCR) Negative PCR RSV Blood Type Antibody Screen Crossmatch ([facility]) 04/07/22 04/07/22 04/07/22 16:42 16:42 16:42 WBC RBC Hgb Hct MCV MCH MCHC RDW Coeff of Aris Plt Count Neut % (Auto) Lymph % (Auto) [place] % (Auto) Eos % (Auto) Baso % (Auto) Neut # (Auto) Lymph # (Auto) [place] # (Auto) Eos # (Auto) Baso # (Auto) Diff Slide Review ESR 81 H Sodium 141 Potassium 4.5 Chloride 107 Carbon Dioxide 23 BUN 26 Creatinine 1.1 Estimated Creat Clear 29.30 Estimated GFR 51 Glucose 222 H Lactate 5.4 H* Calcium 9.1 Total Bilirubin 0.5 Direct Bilirubin 0.2 AST 25 ALT 21 Alkaline Phosphatase 64 Troponin I C-Reactive Protein 3.4 H NT-Pro-B Natriuret Pep Total Protein 6.4 Albumin 3.8 TSH Urine Color Urine Appearance Urine pH Ur Specific [place] Urine Protein Urine Glucose (UA) Urine Ketones Urine Blood Urine Nitrite Urine Bilirubin Urine Urobilinogen Ur Leukocyte Esterase Urine RBC Urine WBC Ur Squamous Epith Cells Urine Bacteria SARS-CoV-2 (PCR) Influenza Type A (PCR) Influenza Type B (PCR) RSV (PCR) Blood Type Antibody Screen Crossmatch ([facility]) 04/07/22 04/07/22 04/07/22 16:42 16:42 16:42 WBC RBC Hgb Hct MCV MCH MCHC RDW Coeff of Aris Plt Count Neut % (Auto) Lymph % (Auto) [place] % (Auto) Eos % (Auto) Baso % (Auto) Neut # (Auto) Lymph # (Auto) [place] # (Auto) Eos # (Auto) Baso # (Auto) Diff Slide Review ESR Sodium Potassium Chloride Carbon Dioxide BUN Creatinine Estimated Creat Clear Estimated GFR Glucose Lactate Calcium Total Bilirubin Direct Bilirubin AST ALT Alkaline Phosphatase Troponin I 0.02 C-Reactive Protein NT-Pro-B Natriuret Pep 4150 Total Protein Albumin TSH 1.970 Urine Color Urine Appearance Urine pH Ur Specific [place] Urine Protein Urine Glucose (UA) Urine Ketones Urine Blood Urine Nitrite Urine Bilirubin Urine Urobilinogen Ur Leukocyte Esterase Urine RBC Urine WBC Ur Squamous Epith Cells Urine Bacteria SARS-CoV-2 (PCR) Influenza Type A (PCR) Influenza Type B (PCR) RSV (PCR) Blood Type O Positive Antibody Screen NEGATIVE Crossmatch ([facility]) See Detail 04/07/22 04/08/22 04/08/22 21:58 08:25 08:25 WBC 14.72 H RBC 3.40 L Hgb 7.7 L* Hct 25.9 L MCV 76 L MCH 23 L MCHC 30 L RDW Coeff of Aris 17.4 H Plt Count 354 Neut % (Auto) 87.9 H Lymph % (Auto) 5.0 L [place] % (Auto) 6.6 Eos % (Auto) 0.1 Baso % (Auto) 0.1 Neut # (Auto) 12.90 H Lymph # (Auto) 0.70 L [place] # (Auto) 1.00 H Eos # (Auto) 0.00 Baso # (Auto) 0.00 Diff Slide Review Acceptable Review ESR Sodium 140 Potassium 3.1 L Chloride 106 Carbon Dioxide 25 BUN 23 Creatinine 1.0 Estimated Creat Clear 32.23 Estimated GFR 57 Glucose 176 H Lactate 2.1 H Calcium 8.7 Total Bilirubin Direct Bilirubin AST ALT Alkaline Phosphatase Troponin I C-Reactive Protein 6.7 H NT-Pro-B Natriuret Pep Total Protein Albumin TSH Urine Color Urine Appearance Urine pH Ur Specific [place] Urine Protein Urine Glucose (UA) Urine Ketones Urine Blood Urine Nitrite Urine Bilirubin Urine Urobilinogen Ur Leukocyte Esterase Urine RBC Urine WBC Ur Squamous Epith Cells Urine Bacteria SARS-CoV-2 (PCR) Influenza Type A (PCR) Influenza Type B (PCR) RSV (PCR) Blood Type Antibody Screen Crossmatch ([facility]) 04/08/22 04/08/22 10:03 10:03 WBC RBC Hgb Hct MCV MCH MCHC RDW Coeff of Aris Plt Count Neut % (Auto) Lymph % (Auto) [place] % (Auto) Eos % (Auto) Baso % (Auto) Neut # (Auto) Lymph # (Auto) [place] # (Auto) Eos # (Auto) Baso # (Auto) Diff Slide Review ESR Sodium Potassium Chloride Carbon Dioxide BUN Creatinine Estimated Creat Clear Estimated GFR Glucose Lactate 2.7 H Calcium Total Bilirubin Direct Bilirubin AST ALT Alkaline Phosphatase Troponin I C-Reactive Protein 7.0 H NT-Pro-B Natriuret Pep Total Protein Albumin TSH Urine Color Urine Appearance Urine pH Ur Specific [place] Urine Protein Urine Glucose (UA) Urine Ketones Urine Blood Urine Nitrite Urine Bilirubin Urine Urobilinogen Ur Leukocyte Esterase Urine RBC Urine WBC Ur Squamous Epith Cells Urine Bacteria SARS-CoV-2 (PCR) Influenza Type A (PCR) Influenza Type B (PCR) RSV (PCR) Blood Type Antibody Screen Crossmatch ([facility])
[2022-04-08 16:19] LABS: Hemoglobin* 8.7 gm/dL (12.0-16.0)
--- NOTE | 2022-04-08 17:42 | PC.NURSE ---
End of shift. pt has been very pleasant. she is alert x2 off on date and town, she is forgetful.. right shoulder pain 08/25 she is getting po Tylenol and heat to the shoulder. she has been on RA all day. Sao2 88-96%.. Pt weak and fatigued with activity. PT and OT worked with her. she is up with 2 assist walker and GB. Up to bedside commode with assist of 2. . Hgb recheck for AM. 7.7 and later 8.7/ SL is patent. IV fluids and antibiotics infusing. ?? VSS
[2022-04-08] MEDS: ARIPiprazole 10 MG TABLET PO (20:38)
[2022-04-08] MEDS: ATORVASTATIN CALCIUM 40 MG TABLET PO (20:38)
[2022-04-08] MEDS: lamoTRIgine 25 MG TABLET PO (20:38)
[2022-04-09] VITALS (11 sets, daily range): BP systolic 101–166; BP diastolic 51–78; PULSE 63–80; RESP 18–24; TEMP 36.6–37.2; O2SAT 89–99
[2022-04-09] MEDS: CEFEPIME HCL 2 GM in 0.9 % SODIUM CHLORIDE Mini-bag 100 ML IVPB ×3 (01:27→20:59)
[2022-04-09] MEDS: LACTATED RINGERS 1000 ML 1,000 ML 75 ML IV (04:27)
--- NOTE | 2022-04-09 05:28 | PC.NURSE ---
Shift note: Pt was transferred to room 251 at 2030. Continuous O2 monitor and @L oxygen maintained, O2>90% throughout the shift. Pt require 2 person assist to bedside commode. Denied pain and cough. Right IV infiltrated and new inserted to continue Lactate Ringers infusion. Vitally stable.
[2022-04-09] MEDS: LEVOTHYROXINE 112 MCG TABLET PO (06:37)
[2022-04-09] MEDS: LEVOTHYROXINE 25 MCG TABLET PO (06:37)
--- NOTE | 2022-04-09 06:42 | PC.NURSE ---
Shift note: Pt's condition is stable. BIPAP on for the night to keep O2>90%. Pt has been sleeping very well tonight. Denied any pain, SOB, Cough and N/V. Refused t/r. Pt vitally stable.
[2022-04-09 06:53] LABS: Basophils Absolute Auto 0.03 K/uL (0.00-0.30); Basophils Percent Auto 0.3 % (0.0-3.0); Eosinophils Absolute Auto 0.01 K/uL (0.00-0.50); Eosinophils Percent Auto 0.1 % (0.0-7.0); Hematocrit 25.1 % (33.0-51.0); Immature Granulocytes Abs Auto 0.16 K/uL (0.00-0.30); Immature Granulocytes Pct Auto 1.6 %; Lymphocytes Percent Auto 4.9 % (20-44); Mean Corpuscular HGB Conc 30 gm/dL (32-36); Mean Corpuscular Hemoglobin 23 pg (26-34); Mean Corpuscular Volume 78 fL (80-100); Monocytes Percent Auto 5.6 % (0.0-11.0); Neutrophils Percent Auto 87.5 % (42.0-72.0); Platelet Count* 317 K/uL (140-440); RDW Coefficient of Variation % 17.8 % (11.5-15.5); Red Blood Count 3.24 m/uL (4.00-5.20); White Blood Count* 10.01 K/uL (4.50-11.00)
[2022-04-09 07:18] LABS: Hemoglobin* 7.5 gm/dL (12.0-16.0)
[2022-04-09 07:25] LABS: Chloride* 106 mmol/L (96-114)
[2022-04-09 07:26] LABS: Potassium* 3.6 mmol/L (3.6-5.1); Sodium* 139 mmol/L (135-149)
[2022-04-09 07:28] LABS: Carbon Dioxide* 26 mmol/L (20-32); Creatinine* 1.3 mg/dL (0.5-1.5); Est. Creatinine Clearance* 24.79; Estimated Glomerular Filt Rate 42 ml/min
[2022-04-09 07:29] LABS: Blood Urea Nitrogen* 28 mg/dL (7-30); Calcium* 8.5 mg/dL (8.4-10.6); Glucose* 178 mg/dL (60-115)
[2022-04-09 09:39] LABS: Slide Review Reflex Yes
[2022-04-09 09:40] LABS: Slide Review Acceptable Review (Acceptable)
--- NOTE | 2022-04-09 10:15 | W.ANESCHARGE ---
Anesthesia Charges Start Date/Time Anesthesia Start Date: 04/09/22 Anesthesia Start Time: 10:56 Stop Date/Time Anesthesia Stop Date: 04/09/22 Anesthesia Stop Time: 11:17 Summary Emergency: No Extremes of Age: Over 71-CPT [id number]
--- NOTE | 2022-04-09 11:21 | W.ANESCHARGE ---
Anesthesia Charges Start Date/Time Anesthesia Start Date: 04/09/22 Anesthesia Start Time: 10:56 Stop Date/Time Anesthesia Stop Date: 04/09/22 Anesthesia Stop Time: 11:17 Summary Emergency: No Extremes of Age: Over 71-CPT [id number]
[2022-04-09] MEDS: METOPROLOL SUCCINATE (XL) 25 MG TAB PO (12:38)
[2022-04-09] MEDS: METFORMIN ER 500 MG PO ×2 (12:39→17:52)
[2022-04-09] MEDS: SITAGLIPTIN PHOSPHATE 50 MG TABLET 100 MG PO (12:39)
[2022-04-09] MEDS: buPROPion XL 150 MG TABLET 300 MG PO (12:40)
[2022-04-09] MEDS: AMIODARONE 200 MG TABLET PO (12:40)
[2022-04-09] MEDS: OMEPRAZOLE 20 MG CAPSULE DR PO ×2 (12:41→21:09)
[2022-04-09] MEDS: allopurinoL 100 MG TABLET 200 MG PO (12:41)
[2022-04-09] MEDS: FUROSEMIDE 10 MG/ML inj IVP (12:41)
[2022-04-09] MEDS: POTASSIUM CITRATE 10 MEQ TABLET.ER PO ×2 (12:42→21:09)
[2022-04-09] MEDS: SODIUM CHLORIDE 0.9 % (FLUSH) 10 ML SYRINGE 5 ML IVF ×3 (12:42→21:11)
--- NOTE | 2022-04-09 13:46 | PC.SOCIAL ---
Addendum entered by Claudette Bauer [facility] 04/09/22 15:02: Addendum: [facility] (Berenice Greenberg, RN) phoned and indicated that [facility] would accept pt back for rehab if needed at time of discharge. Original Note: Discharge Planning: SW met with pt and spouse to discuss d/c plan. Pt and spouse report that pt resides [place] from [facility] with spouse as caregiver, no home care services involved. Pt discharged to [facility] following last hospitalization, staying there for 27 hours before spouse removed pt AMA and found availability at [facility] where pt then remained for about 5 weeks until deemed strong enough to return home a few days ago. Pt and spouse indicate preference of [facility] if a SNF is necessary at time of d/c. Message left for [facility] to check on availability today. SW will continue to follow for d/c planning.
--- NOTE | 2022-04-09 16:37 | P.IMPN_ITS ---
Progress Note: A&P Assessment and plan (1) Gram-negative bacteremia: Problem details: One positive blood culture with Gram-negative rods. Possibly related to UTI. On cefepime pending cultures and sensitivity. Status: Acute (2) Acute on chronic anemia: Problem details: With history of melena likely upper GI bleeding. Is on chronic iron therapy. Colonoscopy showed diverticuli but otherwise unremarkable 2 years ago. No need to repeat colonoscopy unless evidence of ongoing lower GI bleeding. Status: Acute (3) Melena: Problem details: On oral iron therapy. Status: Acute (4) Weakness: Problem details: - PT, OT evaluation. Reassess for ability to return to independent living. Status: Acute (5) Chronic anemia: Problem details: Possibly multifactorial including iron deficiency, acute and chronic blood loss, Status: Chronic (6) Iron deficiency anemia: Problem details: Probably needs intravenous iron Status: Chronic (7) Obstructive sleep apnea syndrome: Status: Chronic (8) Chronic diastolic heart failure: Problem details: - TTE 02/13 Final Impressions: 1. Technically limited exam. 2. Normal LV size, mildly increased wall thickness, normal global systolic function with an estimated EF of 60 - 65%. 3. Right ventricular cavity size is normal, global systolic RV function is normal. 4. The aortic valve is a functioning 23 mm Sendy 3 Ultra bioprosthesis AVR, mild stenosis and no regurgitation. Mean gradient ~ 19mmHg, DI 0.43. 5. The mitral valve is sclerotic, moderate mitral regurgitation. 6. Mitral stenosis with mildly increased mean gradient of 3.9 mmHg at a heart rate of 67. 7. Severely enlarged left atrium. 8. Grade 2 pattern of LV diastolic filling. 9. Moderately increased estimated pulmonary pressures by tricuspid regurgitation velocity and right atrial pressure (52 mmHg plus RAP). - some crackles in RLL and interstitial fluid on CXR. Appears SOB. Will give lasix between units of blood. Check K and Cr in am. Status: Chronic (9) Chronic obstructive pulmonary disease: Problem details: Well managed Status: Chronic (10) DMII (diabetes mellitus, type 2): Problem details: Continue home meds and start ISS Status: Chronic (11) Hypothyroidism: Problem details: Continue home med Status: Chronic (12) Hypertension: Problem details: No hypotension. Continue home meds. Status: Chronic Plan Continue in hospital for IV antibiotics and monitoring of bleeding. Continue evaluation treatment for weakness. Time Spent With Patient Total time spent: Total time spent today is 45 minutes, 35 minutes in coordination of care discussing with patient and other providers ongoing evaluation management of bleeding, bacteremia, weakness Subjective Date Seen: 04/09/22 Interval history: 81-year-old female seen in followup of hospital admission after a fall at home. She does not think she had syncope at the time of the fall. The only injury that she could identify was her right shoulder. She had previously injured that on another fall and it is hurting more today. Radiographs did not show any acut e injury though likely an old rotator cuff tear. In the emergency department she was found to be anemic. He has known chronic anemia with a hemoglobin around 10. She is known to be iron deficient as well. She has had chronic iron supplementation and reports chronic black stools. She has not had any bloody stools. She has previously had evaluation for her anemia 2 years ago with upper and lower endoscopy which were unremarkable other than the finding of diverticulosis. She has had no hematemesis. She has had no syncope, chest pain or new dyspnea. She was hospitalized after a fall earlier this winter. She was then in a senior living for some rehabilitation and adjust come home from the senior living about 4 days ago. On her previous hospitalization she is also identified with a UTI due to E coli which was sensitive to all antibiotics except intermediate sensitivity to ampicillin. Since then she notes that she has generally been doing well without symptoms of urinary infection except recently she has noted increased urinary frequency. She has not had fever, flank pain or dysuria. She has had no other symptoms of illness recently. She felt well prior to her fall. For her anemia she has received now 3 units of blood transfusion. She underwent upper endoscopy today showing no signs or source of blood loss. She reports she has otherwise generally doing well. She still feeling quite weak and needs assistance to stand and transfer. She is being treated for urinary tract infection and Gram-negative bacteremia with cefepime. No fevers. Exam Narrative: Exam Narrative: She is alert and appears in no distress. She is oriented to her circumstances. Respirations are clear to auscultation. Cardiovascular: S1, S2, regular rate and rhythm. Abdomen is soft without tenderness or mass. Extremities with support hose in place no significant edema. Const: Vital Signs, click to edit/add: Vital Signs - 24 hr 04/08/22 19:00 04/08/22 23:00 04/08/22 23:00 Temperature 98.1 F Pulse Rate Pulse Rate [Pulse Oximeter] 66 66 Respiratory Rate 16 16 18 Blood Pressure Blood Pressure [Le ft Arm] 108/46 L Pulse Oximetry 95 100 Oxygen Delivery Me thod Room Air Nasal Cannula Oxygen Flow Rate 2 04/08/22 23:00 04/09/22 03:00 04/09/22 07:00 Temperature 98.1 F 98.1 F 98.1 F Pulse Rate Pulse Rate [Pulse Oximeter] 64 66 69 Respiratory Rate 18 18 24 Blood Pressure Blood Pressure [Le ft Arm] 111/68 101/66 136/62 Pulse Oximetry 100 96 99 Oxygen Delivery Me thod Nasal Cannula Nasal Cannula Room Air Oxygen Flow Rate 2 2 04/09/22 09:02 04/09/22 07:00 04/09/22 07:00 Temperature 98.8 F Pulse Rate 66 Pulse Rate [Pulse Oximeter] 69 Respiratory Rate 24 24 24 Blood Pressure 130/69 Blood Pressure [Le ft Arm] Pulse Oximetry 96 96 Oxygen Delivery Me thod Room Air Oxygen Flow Rate 04/09/22 09:37 04/09/22 10:15 04/09/22 11:50 Temperature 98.8 F 99.0 F Pulse Rate 80 68 64 Pulse Rate [Pulse Oximeter] Respiratory Rate 24 18 18 Blood Pressure 163/69 H 153/78 H 166/62 H Blood Pressure [Le ft Arm] Pulse Oximetry 89 94 99 Oxygen Delivery Me thod Oxygen Flow Rate 04/09/22 12:50 04/09/22 13:20 04/09/22 11:50 Temperature 98.2 F 98.7 F 99.0 F Pulse Rate 63 68 Pulse Rate [Pulse Oximeter] 64 Respiratory Rate 24 22 24 Blood Pressure 152/65 H 151/68 H Blood Pressure [Le ft Arm] 166/62 H Pulse Oximetry 93 93 99 Oxygen Delivery Me thod Room Air Oxygen Flow Rate 04/09/22 15:00 Temperature 98.2 F Pulse Rate Pulse Rate [Pulse Oximeter] 67 Respiratory Rate 22 Blood Pressure Blood Pressure [Le ft Arm] 163/77 H Pulse Oximetry 94 Oxygen Delivery Me thod Room Air Oxygen Flow Rate Documenting provider has reviewed patient's vital signs: yes Labs Labs: Laboratory Results - last 24 hr 04/07/22 04/08/22 04/09/22 16:42 21:56 06:03 WBC 10.01 RBC 3.24 L Hgb 8.0 L 7.5 L* Hct 25.1 L MCV 78 L MCH 23 L MCHC 30 L RDW Coeff of Aris 17.8 H Plt Count 317 Neut % (Auto) 87.5 H Lymph % (Auto) 4.9 L [place] % (Auto) 5.6 Eos % (Auto) 0.1 Baso % (Auto) 0.3 Neut # (Auto) 8.80 H Lymph # (Auto) 0.50 L [place] # (Auto) 0.60 Eos # (Auto) 0.01 Baso # (Auto) 0.03 Diff Slide Review Acceptable Review Sodium Potassium Chloride Carbon Dioxide BUN Creatinine Estimated Creat Clear Estimated GFR Glucose Calcium Blood Type O Positive Antibody Screen NEGATIVE Crossmatch ([facility]) See Detail 04/09/22 06:03 WBC RBC Hgb Hct MCV MCH MCHC RDW Coeff of Aris Plt Count Neut % (Auto) Lymph % (Auto) [place] % (Auto) Eos % (Auto) Baso % (Auto) Neut # (Auto) Lymph # (Auto) [place] # (Auto) Eos # (Auto) Baso # (Auto) Diff Slide Review Sodium 139 Potassium 3.6 Chloride 106 Carbon Dioxide 26 BUN 28 Creatinine 1.3 Estimated Creat Clear 24.79 Estimated GFR 42 Glucose 178 H Calcium 8.5 Blood Type Antibody Screen Crossmatch ([facility])
--- NOTE | 2022-04-09 19:48 | PC.NURSE ---
Pt alert and oriented x3, pleasant and cooperative. Afebrile. Reports pain 5/10, pain managed with PRN and scheduled medications. Pt had 1 unit of blood, tolerated well. Pt is up with A1/A2 with walker and gait belt to commode. Pt denies chest pain and N/V. Pt reports SOB with exertion. ?
[2022-04-09] MEDS: 0.9 % SODIUM CHLORIDE 250 ml IV (20:59)
[2022-04-09] MEDS: ATORVASTATIN CALCIUM 40 MG TABLET PO (21:09)
[2022-04-09] MEDS: lamoTRIgine 25 MG TABLET PO (21:10)
[2022-04-09] MEDS: ARIPiprazole 10 MG TABLET PO (21:10)
[2022-04-10] VITALS (8 sets, daily range): BP systolic 126–159; BP diastolic 47–81; PULSE 63–80; RESP 16–20; TEMP 36.6–36.9; O2SAT 96–99
[2022-04-10] MEDS: CEFEPIME HCL 2 GM in 0.9 % SODIUM CHLORIDE Mini-bag 100 ML IVPB (05:03)
[2022-04-10] MEDS: SODIUM CHLORIDE 0.9 % (FLUSH) 10 ML SYRINGE 5 ML IVF ×3 (05:04→20:49)
--- NOTE | 2022-04-10 06:26 | PC.NURSE ---
Shift note: Pt appears to regain strength as pt is able to ambulate with A1 to BR compared with A2 yesterday but does complained of feeling weak. O2>90% throughout the shift on room air. No Pain, SOB, and N/V reported.
[2022-04-10 06:57] LABS: Basophils Absolute Auto 0.03 K/uL (0.00-0.30); Basophils Percent Auto 0.4 % (0.0-3.0); Eosinophils Absolute Auto 0.24 K/uL (0.00-0.50); Eosinophils Percent Auto 2.9 % (0.0-7.0); Hematocrit 29.5 % (33.0-51.0); Hemoglobin* 8.9 gm/dL (12.0-16.0); Immature Granulocytes Abs Auto 0.05 K/uL (0.00-0.30); Immature Granulocytes Pct Auto 0.6 %; Lymphocytes Percent Auto 9.6 % (20-44); Mean Corpuscular HGB Conc 30 gm/dL (32-36); Mean Corpuscular Hemoglobin 24 pg (26-34); Mean Corpuscular Volume 78 fL (80-100); Monocytes Percent Auto 9.6 % (0.0-11.0); Neutrophils Percent Auto 76.9 % (42.0-72.0); Platelet Count* 266 K/uL (140-440); RDW Coefficient of Variation % 17.6 % (11.5-15.5); Red Blood Count 3.78 m/uL (4.00-5.20); White Blood Count* 8.14 K/uL (4.50-11.00)
[2022-04-10] MEDS: LEVOTHYROXINE 112 MCG TABLET PO (07:00)
[2022-04-10] MEDS: LEVOTHYROXINE 25 MCG TABLET PO (07:00)
[2022-04-10 07:16] LABS: Slide Review Reflex No
[2022-04-10 07:17] LABS: Chloride* 106 mmol/L (96-114); Sodium* 140 mmol/L (135-149)
[2022-04-10 07:20] LABS: Blood Urea Nitrogen* 29 mg/dL (7-30); Calcium* 8.6 mg/dL (8.4-10.6); Carbon Dioxide* 26 mmol/L (20-32); Creatinine* 1.2 mg/dL (0.5-1.5); Est. Creatinine Clearance* 26.86; Estimated Glomerular Filt Rate 46 ml/min; Glucose* 105 mg/dL (60-115)
[2022-04-10 07:21] LABS: Potassium* 3.6 mmol/L (3.6-5.1)
[2022-04-10] MEDS: cefTRIAXone 2 GM in 0.9 % SODIUM CHLORIDE Mini-bag 100 ML IVPB (07:53)
[2022-04-10] MEDS: METFORMIN ER 500 MG PO ×2 (07:54→18:03)
[2022-04-10] MEDS: AMIODARONE 200 MG TABLET PO (08:52)
[2022-04-10] MEDS: buPROPion XL 150 MG TABLET 300 MG PO (08:52)
[2022-04-10] MEDS: OMEPRAZOLE 20 MG CAPSULE DR PO ×2 (08:52→20:48)
[2022-04-10] MEDS: allopurinoL 100 MG TABLET 200 MG PO (08:52)
[2022-04-10] MEDS: POTASSIUM CITRATE 10 MEQ TABLET.ER PO ×2 (08:52→20:48)
[2022-04-10] MEDS: METOPROLOL SUCCINATE (XL) 25 MG TAB PO (08:52)
[2022-04-10] MEDS: SITAGLIPTIN PHOSPHATE 50 MG TABLET 100 MG PO (08:52)
--- NOTE | 2022-04-10 12:39 | P.IMPN_ITS ---
Progress Note: A&P Assessment and plan (1) Gram-negative bacteremia: Problem details: Blood culture showing E coli with same sensitivities as urine. Switch to ceftriaxone Status: Acute (2) Acute on chronic anemia: Problem details: With history of melena likely upper GI bleeding. Is on chronic iron therapy. Colonoscopy showed diverticuli but otherwise unremarkable 2 years ago. No need to repeat colonoscopy unless evidence of ongoing lower GI bleeding. Status: Acute (3) Melena: Problem details: On oral iron therapy. Status: Acute (4) Weakness: Problem details: - PT, OT evaluation. Reassess for ability to return to independent living. Status: Acute (5) Chronic anemia: Problem details: Possibly multifactorial including iron deficiency, acute and chronic blood loss, Status: Chronic (6) Iron deficiency anemia: Problem details: Probably needs intravenous iron Status: Chronic (7) Obstructive sleep apnea syndrome: Status: Chronic (8) Chronic diastolic heart failure: Problem details: - TTE 02/13 Final Impressions: 1. Technically limited exam. 2. Normal LV size, mildly increased wall thickness, normal global systolic function with an estimated EF of 60 - 65%. 3. Right ventricular cavity size is normal, global systolic RV function is normal. 4. The aortic valve is a functioning 23 mm Sendy 3 Ultra bioprosthesis AVR, mild stenosis and no regurgitation. Mean gradient ~ 19mmHg, DI 0.43. 5. The mitral valve is sclerotic, moderate mitral regurgitation. 6. Mitral stenosis with mildly increased mean gradient of 3.9 mmHg at a heart rate of 67. 7. Severely enlarged left atrium. 8. Grade 2 pattern of LV diastolic filling. 9. Moderately increased estimated pulmonary pressures by tricuspid regurgitation velocity and right atrial pressure (52 mmHg plus RAP). - some crackles in RLL and interstitial fluid on CXR. Appears SOB. Will give lasix between units of blood. Check K and Cr in am. Status: Chronic (9) Chronic obstructive pulmonary disease: Problem details: Well managed Status: Chronic (10) DMII (diabetes mellitus, type 2): Problem details: Continue home meds and start ISS Status: Chronic (11) Hypothyroidism: Problem details: Continue home med Status: Chronic (12) Hypertension: Problem details: No hypotension. Continue home meds. Status: Chronic Plan Continue in hospital for IV antibiotics for bacteremia, physical therapy, monitoring for bleeding, possible [facility] to [facility] for additional rehab depending on her clinical course. Time Spent With Patient Total time spent: Total time spent today is 40 minutes, 30 minutes in coordination care discussing with patient and other providers ongoing evaluation management of weakness, bacteremia, GI bleeding. Subjective Date Seen: 04/10/22 Interval history: 81-year-old female seen in followup of hospital admission after a fall at home. She does not think she had syncope at the time of the fall. The only injury that she could identify was her right shoulder. She had previously injured that on another fall and it is hurting more today. Radiographs did not show any acute injury though likely an old rotator cuff tear. In the emergency department she was found to be anemic. He has known chronic anemia with a hemoglobin around 10. She is known to be iron deficient as well. She has had chronic iron supplementation and reports chronic black stools. She has not had any bloody stools. She has previously had evaluation for her anemia 2 years ago with upper and lower endoscopy which were unremarkable other than the finding of diverticulosis. She has had no hematemesis. She has had no syncope, chest pain or new dyspnea. She was hospitalized after a fall earlier this winter. She was then in a skilled nursing for some rehabilitation and adjust come home from the skilled nursing about 4 days ago. On her previous hospitalization she is also identified with a UTI due to E coli which was sensitive to all antibiotics except intermediate sensitivity to ampicillin. Since then she notes that she has generally been d oing well without symptoms of urinary infection except recently she has noted increased urinary frequency. She has not had fever, flank pain or dysuria. She has had no other symptoms of illness recently. She felt well prior to her fall. For her anemia she has received now 3 units of blood transfusion. She underwent upper endoscopy today showing no signs or source of blood loss. She reports she has otherwise generally doing well. She still feeling quite weak and needs assistance to stand and transfer. Ongoing evaluation by therapy suggests that she is still quite weak. She is being treated for urinary tract infection and Gram-negative bacteremia with cefepime. No fevers. Blood culture now shows the same E coli as in her urine. Will switch to ceftriaxone. No obvious bleeding. Exam Narrative: Exam Narrative: She is alert and appears in no distress. She is more anxious than usual today. Respirations are clear to auscultation. Her deep tendon skin on her back shows mild to moderate edema. Right cardiovascular: S1, S2, regular rate and rhythm. Abdomen is soft without tenderness or mass. Extremities with trace edema. Const: Vital Signs, click to edit/add: Vital Signs - 24 hr 04/09/22 12:50 04/09/22 13:20 04/09/22 15:00 Temperature 98.2 F 98.7 F 98.2 F Pulse Rate 63 68 Pulse Rate [Pulse Oximeter] 67 Respiratory Rate 24 22 22 Blood Pressure 152/65 H 151/68 H Blood Pressure [Le ft Arm] 163/77 H Blood Pressure [Ri ght Arm] Pulse Oximetry 93 93 94 Oxygen Delivery Me thod Room Air 04/09/22 15:00 04/09/22 15:00 04/09/22 19:00 Temperature 98 F Pulse Rate Pulse Rate [Pulse Oximeter] 67 64 Respiratory Rate 22 22 20 Blood Pressure Blood Pressure [Le ft Arm] 141/51 H Blood Pressure [Ri ght Arm] Pulse Oximetry 94 99 Oxygen Delivery Me thod Room Air Room Air 04/09/22 23:00 04/09/22 23:00 04/09/22 23:00 Temperature 97.9 F Pulse Rate Pulse Rate [Pulse Oximeter] 64 64 Respiratory Rate 20 20 Blood Pressure Blood Pressure [Le ft Arm] 139/77 Blood Pressure [Ri ght Arm] Pulse Oximetry 96 96 Oxygen Delivery Me thod Room Air Room Air 04/10/22 02:57 04/10/22 09:56 04/10/22 09:58 Temperature 98.1 F Pulse Rate Pulse Rate [Pulse Oximeter] 69 Respiratory Rate 20 16 Blood Pressure Blood Pressure [Le ft Arm] 156/81 H Blood Pressure [Ri ght Arm] Pulse Oximetry 96 97 Oxygen Delivery Me thod Room Air Room Air 04/10/22 07:45 04/10/22 11:15 Temperature 97.9 F 98.4 F Pulse Rate Pulse Rate [Pulse Oximeter] 63 80 Respiratory Rate 16 20 Blood Pressure Blood Pressure [Le ft Arm] 159/75 H Blood Pressure [Ri ght Arm] 139/72 Pulse Oximetry 97 96 Oxygen Delivery Me thod Room Air Room Air Labs Labs: Laboratory Results - last 24 hr 04/07/22 04/10/22 04/10/22 16:42 05:56 05:56 WBC 8.14 RBC 3.78 L Hgb 8.9 L Hct 29.5 L MCV 78 L MCH 24 L MCHC 30 L RDW Coeff of Aris 17.6 H Plt Count 266 Neut % (Auto) 76.9 H Lymph % (Auto) 9.[address] [place] % (Auto) 9.6 Eos % (Auto) 2.9 Baso % (Auto) 0.4 Neut # (Auto) 6.30 Lymph # (Auto) 0.[address] [place] # (Auto) 0.80 Eos # (Auto) 0.24 Baso # (Auto) 0.03 Sodium 140 Potassium 3.6 Chloride 106 Carbon Dioxide 26 BUN 29 Creatinine 1.2 Estimated Creat Clear 26.86 Estimated GFR 46 Glucose 105 Calcium 8.6 Crossmatch ([facility]) See Detail
[2022-04-10 13:31] LABS: Iron* 18 ug/dL (37-170)
[2022-04-10] MEDS: IRON SUCROSE COMPLEX 200 MG in 0.9 % SODIUM CHLORIDE 100 ml 100 ML 440 MG IVPB (13:39)
[2022-04-10 13:40] LABS: Percent Iron Saturation 6 % (20-50); Total Iron Binding Capacity 291 ug/dL (265-497)
--- NOTE | 2022-04-10 13:46 | PC.NURSE ---
Pt pleasant and cooperative during shift. Pt 1 assist with walker. Pt up to chair through out the day. Pt ambulated to BR multiple times through out shift. New antibiotic started see EMAR. Pt had little to no pain. Pt tolerated regular diet well.
--- NOTE | 2022-04-10 16:30 | PC.SOCIAL ---
Discharge planning- Received a phone call from Berenice Greenberg at [facility]. Berenice states that she will likely accept pt for admission since pt was just at the [facility] recently. Berenice requests that this worker send the referral to her. Faxed referral to [facility]. Discussed IV antibiotics with charge nurse. MD states that pt will change to oral antibiotics tomorrow (04/11/22). Phone call to Berenice Greenberg and left a voicemail informing her that the MD will change the IV antibiotics tomorrow to oral antibiotics. Met with pt in pt's room and provided her with an update that [facility] is assessing for possible admission. Pt will discuss with her . Informed pt that this worker will update her when more information is available. Social Work will follow up as necessary.
[2022-04-10] MEDS: lamoTRIgine 25 MG TABLET PO (20:48)
[2022-04-10] MEDS: ATORVASTATIN CALCIUM 40 MG TABLET PO (20:48)
[2022-04-10] MEDS: ARIPiprazole 10 MG TABLET PO (20:48)
--- NOTE | 2022-04-10 23:02 | PC.NURSE ---
End of Shift: Patient pleasant and cooperative. Afebrile. Denies pain. Up to chair and bathroom with 1 assist, walker and gait belt. O2 sats mid to upper 90s on room air. Tolerating regular diet with no nausea.
[2022-04-11 01:00] VITALS: BP 148/78; PULSE 69; RESP 20; TEMP 36.5; O2SAT 96
[2022-04-11 01:07] VITALS: RESP 20; O2SAT 95
[2022-04-11 03:57] VITALS: BP 155/58; PULSE 70; RESP 20; TEMP 36.4; O2SAT 98
[2022-04-11] MEDS: LEVOTHYROXINE 112 MCG TABLET PO (06:14)
[2022-04-11] MEDS: LEVOTHYROXINE 25 MCG TABLET PO (06:14)
--- NOTE | 2022-04-11 06:33 | PC.NURSE ---
Status [id number] Alert with intermittent confusion. Pleasant and cooperative. Denies pain. VSS on room air. Up with assist of 1 and walker/belt. Using bedside commode. Intermittent resting between cares.
[2022-04-11 06:45] LABS: Lactate* 2.2 mmol/L (0.5-1.9)
[2022-04-11 06:55] LABS: Basophils Absolute Auto 0.02 K/uL (0.00-0.30); Basophils Percent Auto 0.3 % (0.0-3.0); Eosinophils Absolute Auto 0.33 K/uL (0.00-0.50); Eosinophils Percent Auto 4.2 % (0.0-7.0); Hemoglobin* 8.9 gm/dL (12.0-16.0); Immature Granulocytes Abs Auto 0.05 K/uL (0.00-0.30); Immature Granulocytes Pct Auto 0.6 %; Lymphocytes Percent Auto 7.9 % (20-44); Mean Corpuscular HGB Conc 30 gm/dL (32-36); Mean Corpuscular Hemoglobin 23 pg (26-34); Mean Corpuscular Volume 79 fL (80-100); Monocytes Percent Auto 10.8 % (0.0-11.0); Neutrophils Percent Auto 76.2 % (42.0-72.0); Platelet Count* 266 K/uL (140-440); RDW Coefficient of Variation % 17.8 % (11.5-15.5); Red Blood Count 3.82 m/uL (4.00-5.20); White Blood Count* 7.81 K/uL (4.50-11.00)
[2022-04-11 07:00] VITALS: BP 160/61; PULSE 70; RESP 24; TEMP 36.6; O2SAT 98
[2022-04-11 07:06] LABS: Chloride* 109 mmol/L (96-114); Sodium* 141 mmol/L (135-149)
[2022-04-11 07:09] LABS: Blood Urea Nitrogen* 25 mg/dL (7-30); Carbon Dioxide* 26 mmol/L (20-32); Creatinine* 1.2 mg/dL (0.5-1.5); Est. Creatinine Clearance* 26.86; Estimated Glomerular Filt Rate 46 ml/min; Glucose* 127 mg/dL (60-115)
[2022-04-11 07:10] LABS: Calcium* 8.5 mg/dL (8.4-10.6)
[2022-04-11 07:36] LABS: Slide Review Reflex No
[2022-04-11] MEDS: cefTRIAXone 2 GM in 0.9 % SODIUM CHLORIDE Mini-bag 100 ML IVPB (07:40)
[2022-04-11] MEDS: SODIUM CHLORIDE 0.9 % (FLUSH) 10 ML SYRINGE 5 ML IVF (07:41)
[2022-04-11] MEDS: METFORMIN ER 500 MG PO (07:51)
[2022-04-11] MEDS: POTASSIUM CITRATE 10 MEQ TABLET.ER PO (08:53)
[2022-04-11] MEDS: SITAGLIPTIN PHOSPHATE 50 MG TABLET 100 MG PO (08:53)
[2022-04-11] MEDS: METOPROLOL SUCCINATE (XL) 25 MG TAB PO (08:54)
[2022-04-11] MEDS: OMEPRAZOLE 20 MG CAPSULE DR PO (08:54)
[2022-04-11] MEDS: AMIODARONE 200 MG TABLET PO (08:54)
[2022-04-11] MEDS: allopurinoL 100 MG TABLET 200 MG PO (08:54)
[2022-04-11] MEDS: buPROPion XL 150 MG TABLET 300 MG PO (08:55)
--- NOTE | 2022-04-11 09:53 | P.DS_ITS ---
DS: Providers Provider Date Seen: 04/11/22 Date of admission: 04/08/22 11:44 Primary care physician: Andrew Rodríguez MD Admitting Clinician: Letitia Fernando MD Attending Physician on discharge: Matthias Hoang MD Date of Discharge: 04/11/22 DS: Diagnosis Discharge Diagnosis (1) Gram-negative bacteremia: Status: Acute Problem details: Blood culture showing E coli with same sensitivities as urine. Treat with cephalexin for 10 more days (2) Recurrent UTI: Status: Acute Problem details: Treat current UTI with cephalexin (3) Melena: Status: Acute Problem details: March 2020 had normal EGD and colonoscopy showed diverticulosis. March 2022 had normal EGD. Suspected to have low-grade small-bowel bleeding or possibly diverticular bleeding. He has not had hematochezia. Current recommendation is to monitor hemoglobin, hold aspirin, provide IV iron. (4) Acute on chronic anemia: Status: Acute Problem details: Monitor hemoglobins and provide IV iron (5) DMII (diabetes mellitus, type 2): Status: Chronic Problem details: Blood sugars have been well controlled (6) Weakness: Status: Acute Problem details: Patient has longstanding weakness. [facility] (7) Iron deficiency anemia: Status: Chronic Problem details: Has been on oral iron for years with persistent iron deficiency anemia. Recommend intravenous iron (8) Morbid obesity with body mass index (BMI) of 40.0 to 44.9 in adult: Status: Acute (9) Right shoulder injury: Status: Acute Problem details: Admitted with a fall and recurrent right shoulder injury. No fracture. Probable old rotator cuff tear DS: Summary Hospital Course Hospital Course: 81-year-old female admitted to the hospital a few days after being discharged to home from the snf when she fell at home. At the time of admission evaluation showed a hemoglobin of 5.3, guaiac-positive melanotic stools and a urinary tract infection. She was not hypotensive or febrile. For her melanotic stools and anemia she received blood transfusion of 3 units over 2 days with her hemoglobin going up to 8.4 and stabilizing. She had upper endoscopy which showed no obvious site of bleeding. Her aspirin was discontinued. She received ongoing PPI therapy. The source of the bleeding was never definitively determined. Colonoscopy in the past that showed diverticulosis. She never had hematochezia but could be having a very low-grade bleeding from anywhere in her gastrointestinal tract. Current recommendation is that she have her hemoglobin monitored and referral to a urgent care if continued significant problems with GI bleeding. After years of oral iron therapy and ongoing iron deficiency it is apparent she is not absorbing iron and should receive intravenous iron. One dose given in the hospital of iron sucrose 200 mg. Her urinary tract infection was treated with ceftriaxone. She had a positive blood culture. Urine and blood cultures both grew E coli which was sensitive to all antibiotics tested except amoxicillin. She will be transitioned to oral cephalexin for 10 more days of treatment. She was evaluated by Occupational therapy and Physical therapy and found to be in need of additional rehab for weakness. She is referred to [facility] for rehab. Her aspirin was discontinued due to concerns about bleeding. If her hemoglobin normalizes and remains stable her aspirin could reasonably be restarted. Status at Discharge Cognitive/behavioral status at discharge: At baseline Functional status at discharge: uses cane/walker Overall status at discharge: patient is back to baseline Time Spent with Patient Time attestation: Total time spent providing and/or coordinating discharge services: Time spent: Greater than 30 minutes Exam Narrative: Exam Narrative: She is alert and appears in no distress. Anxiety is improved today. Mood and affect are bright. Respirations are clear to auscultation except for a few basilar crackles. Cardiovascular: S1, S2, regular rate and rhythm. Abdomen is soft without tenderness or mass. Extremities without edema. Const: Vital Signs, click to edit/add: Vital Signs - 24 hr 04/10/22 09:56 04/10/22 09:58 04/10/22 11:15 Temperature 98.4 F Pulse Rate [Pulse Oximeter] 80 Respiratory Rate 16 20 Blood Pressure [Le ft Arm] 159/75 H Blood Pressure [Ri ght Arm] Pulse Oximetry 97 96 Oxygen Delivery Me thod Room Air Room Air 04/10/22 15:00 04/10/22 15:00 04/10/22 15:00 Temperature 98.0 F Pulse Rate [Pulse Oximeter] 63 63 Respiratory Rate 20 20 Blood Pressure [Le ft Arm] 130/63 Blood Pressure [Ri ght Arm] Pulse Oximetry 96 96 Oxygen Delivery Me thod Room Air Room Air 04/10/22 19:00 04/11/22 01:00 04/11/22 01:07 Temperature 98.3 F 97.7 F Pulse Rate [Pulse Oximeter] 67 69 Respiratory Rate 20 20 20 Blood Pressure [Le ft Arm] 126/47 L Blood Pressure [Ri ght Arm] 148/78 H Pulse Oximetry 99 96 95 Oxygen Delivery Me thod Room Air Room Air Room Air 04/11/22 03:57 04/11/22 07:00 04/11/22 07:00 Temperature 97.6 F 97.9 F Pulse Rate [Pulse Oximeter] 70 70 70 Respiratory Rate 20 24 24 Blood Pressure [Le ft Arm] 160/61 H Blood Pressure [Ri ght Arm] 155/58 H Pulse Oximetry 98 98 Oxygen Delivery Me thod Room Air Room Air 04/11/22 07:00 Temperature Pulse Rate [Pulse Oximeter] Respiratory Rate 24 Blood Pressure [Le ft Arm] Blood Pressure [Ri ght Arm] Pulse Oximetry 98 Oxygen Delivery Me thod Room Air Documenting provider has reviewed patient's vital signs: yes DS: Data Data Completed and Pending Labs on day of discharge: Labs from last 24 hours 04/11/22 04/11/22 04/11/22 06:19 06:19 06:19 WBC 7.81 RBC 3.82 L Hgb 8.9 L Hct 30.0 L MCV 79 L MCH 23 L MCHC 30 L RDW Coeff of Aris 17.8 H Plt Count 266 Neut % (Auto) 76.2 H Lymph % (Auto) 7.9 L [place] % (Auto) 10.8 Eos % (Auto) 4.2 Baso % (Auto) 0.3 Neut # (Auto) 6.00 Lymph # (Auto) 0.60 L [place] # (Auto) 0.80 Eos # (Auto) 0.33 Baso # (Auto) 0.02 Sodium 141 Potassium 4.0 Chloride 109 Carbon Dioxide 26 BUN 25 Creatinine 1.2 Estimated Creat Clear 26.86 Estimated GFR 46 Glucose 127 H Lactate 2.2 H Calcium 8.5 Iron TIBC % Saturation 04/10/22 05:56 WBC RBC Hgb Hct MCV MCH MCHC RDW Coeff of Aris Plt Count Neut % (Auto) Lymph % (Auto) [place] % (Auto) Eos % (Auto) Baso % (Auto) Neut # (Auto) Lymph # (Auto) [place] # (Auto) Eos # (Auto) Baso # (Auto) Sodium Potassium Chloride Carbon Dioxide BUN Creatinine Estimated Creat Clear Estimated GFR Glucose Lactate Calcium Iron 18 L TIBC 291 % Saturation 6 L Preliminary micro results at discharge 04/08/22 10:03 Blood Culture - Preliminary Blood NO GROWTH AFTER 48 HOURS Discharge Plan Discharge Disposition: Xfer SNF Date of Admission: 04/08/22 11:44 Attending Provider on Discharge: Reece Hoang Primary Care Provider: Andrew Rodríguez Anticipated Discharge Date/Time: 04/11/22 10:00 Discharge Medications: New cephalexin 500 mg capsule 500 mg PO QID Qty: 40 0RF alprazolam 0.25 mg Tablet 0.5 mg PO BID PRNQty: 30 0RF Continued metoprolol succinate 50 mg tablet extended release 24 hr 50 mg PO DAILY Label Comments: TAKE 1 TAB BY MOUTH ONCE DAILY omeprazole 20 mg capsule,delayed release(DR/EC) 20 mg PO DAILY Label Comments: TAKE 1 CAP BY MOUTH ONCE DAILY FOR ACID REFLUX multivitamin with folic acid [Tab-A-Ara] 400 mcg tablet 1 tab PO DAILY Label Comments: TAKE 1 TABLET BY MOUTH DAILY metformin 500 mg tablet extended release 24 hr 500 mg PO BIDWM Januvia 100 mg tablet 100 mg PO DAILY Label Comments: TAKE 1 TABLET BY MOUTH DAILY. levothyroxine 137 mcg tablet 137 mcg PO DAILY allopurinol 100 mg tablet 200 mg PO DAILY aripiprazole 10 mg tablet 10 mg PO HS atorvastatin 40 mg tablet 40 mg PO HS amiodarone 200 mg tablet 200 mg PO DAILY acetaminophen 325 mg tablet 650 mg PO Q4H PRN Saccharomyces boulardii 250 mg capsule 250 mg PO BID bupropion HCl 300 mg tablet extended release 24 hr 300 mg PO QAM potassium citrate 10 mEq (1,080 mg) tablet extended release 10 meq PO BID Qty: 60 5RF lamotrigine 25 mg tablet 25 mg PO HS polysaccharide iron complex 150 mg iron capsule 150 mg PO 3XW Rx Instructions: mon,wed,fri Discontinued alprazolam [Xanax] 0.5 mg tablet 0.5 mg PO BID PRN aspirin [Children's Aspirin] 81 mg Tablet,Chewable 81 mg PO DAILY Qty: 30 0RF Label Comments: Takes once a week oxycodone 5 mg Tablet 2.5 mg PO Q8H PRN (Reason: headache) Qty: 30 0RF Discharge Orders: Discharge Order (Routine); Ordered 04/11/22 Ordered By: Reece Hoang Activity Level: Up with assist and Use Walker Discharge Diet: Regular Follow Up Appointments: [facility] [Outside] Andrew Rodríguez MD [Primary Care Provider] - Admit to: SNF Discharge Potential: Fair Length of Stay: 30-90 days Can use facility standing orders?: Yes Code Status: DNR Rehab Potential: Fair Therapy: Physical Therapy and Occupational Therapy Therapy Orders: Evaluate and Treat Urinary Catheter: No Glucose Checks: Check blood sugars b.i.d. in a.m. and p.m. Lab Orders: CBC in one week Orders are good >30 days: Yes
[2022-04-11 10:06] VITALS: BP 151/68; PULSE 68; RESP 24; TEMP 36.6
[2022-04-11 11:00] VITALS: BP 162/65; PULSE 66; RESP 22; TEMP 37; O2SAT 98
--- NOTE | 2022-04-11 12:04 | PC.NURSE ---
Discharge: Patient pleasant and cooperative. Patient vitally stable, lung with light crackles, BS WNL, IV's removed. Patient 1 assist, walker, gb. Patient denies pain. Patient urinating, and had 1 moderate formed BM. Patient tolerating regular diet. Patient left to [facility] with spouse by wheelchair at 1201. signed discharge forms and took belongings. Report given to [facility].
--- NOTE | 2022-04-11 12:08 | PC.SOCIAL ---
Discharge planning- Received a phone call from Berenice Greenberg at [facility]. They will accept pt for admission today. Will call back with a transport time. Phone call to pt's , Haroon. Haroon's phone was not working and he was unable to hear this worker. Met with pt in pt's room. Pt states that her is on his way to the hospital shortly and states that he often can get his phone to work since it is an iphone. Discussed discharge plans with pt and she is agreeable. Pt would like to transport but will wait until he arrives at the hospital. Met with pt and pt's , Haroon, in pt's room. Haroon would like to transport pt to [facility]. Pt does not have clothing for the transport. Oleg will go home quickly and get clothing, coat, and shoes for pt to discharge. Discharge will occur around 12:00 pm. Provided update to charge nurse. Phone call to Berenice Greenberg and provided update on discharge time. Completed preadmission screening. Confirmation #[id number]. Faxed copy of preadmission screening to [facility]. Social Work will follow up as necessary.
== END 2022-04-11 12:01 | DRG 812 ==
LOC: ED 16:11 → MEDSURG 19:29
PROVIDERS: Family Medicine; Admitting Provider Family Medicine; Emergency Provider Family Medicine; PCP Family Medicine; Visit Provider Family Medicine
DX: D62 Acute posthemorrhagic anemia (principal); K92.1 Melena; I50.32 Chronic diastolic (congestive) heart failure; R78.81 Bacteremia; N39.0 Urinary tract infection, site not specified; Z68.41 Body mass index [BMI] 40.0-44.9, adult; B96.20 Unspecified Escherichia coli [E. coli] as the cause of diseases classified elsewhere; K29.70 Gastritis, unspecified, without bleeding; I11.0 Hypertensive heart disease with heart failure; E11.40 Type 2 diabetes mellitus with diabetic neuropathy, unspecified; Z79.85 Long-term (current) use of injectable non-insulin antidiabetic drugs; R53.1 Weakness; G47.33 Obstructive sleep apnea (adult) (pediatric); J44.9 Chronic obstructive pulmonary disease, unspecified; E66.01 Morbid (severe) obesity due to excess calories; S49.91XA Unspecified injury of right shoulder and upper arm, initial encounter; W19.XXXA Unspecified fall, initial encounter; E03.9 Hypothyroidism, unspecified
CPT/HCPCS: 00731; 36415; 36430; 43235; 71045; 73030; 80048; 80076; 81001; 82962; 83540; 83550; 83605; 83880; 84443; 84484; 85018; 85025; 85651; 86140; 86850; 86900; 86901; 86922; 87040; 87086; 87186; 87502; 87634; 87635; 93005; 94761; 97110; 97116; 97162; 97165; 97535; 99100; 99284; 99285; A9270; G0378; J0692; J0696; J1756; J1940; J2704; J7030; J7050; J7120; P9016

== ENCOUNTER 2022-05-17 12:13 | Outpatient (REF) | payer MEDICARE, SELFPAY ==
[2022-05-17 12:42] LABS: Hemoglobin* 10.3 gm/dL (12.0-16.0)
== END 2022-05-17 12:14 | disposition home or self-care (01) ==
LOC: NPINS 12:13
PROVIDERS: PCP Family Medicine; Visit Provider Nurse Practitioner Gerontology
DX: D62 Acute posthemorrhagic anemia (principal); D50.9 Iron deficiency anemia, unspecified
CPT/HCPCS: 85018

== ENCOUNTER 2022-05-31 10:50 | Outpatient (REF) | payer MEDICARE, SELFPAY ==
[2022-05-31 11:02] LABS: Hemoglobin* 10.2 gm/dL (12.0-16.0)
== END 2022-05-31 10:51 | disposition home or self-care (01) ==
LOC: NPINS 10:50
PROVIDERS: PCP Family Medicine; Visit Provider Nurse Practitioner Gerontology
DX: D62 Acute posthemorrhagic anemia (principal); D50.9 Iron deficiency anemia, unspecified
CPT/HCPCS: 85018

== ENCOUNTER 2022-09-05 13:17 | Outpatient (REF) | payer MEDICARE, SELFPAY ==
[2022-09-05 13:46] LABS: Appearance Urine Turbid (Clear); Bilirubin Urine Negative (Negative); Blood Urine 2+ (Negative); Color Urine Yellow (Yellow); Glucose Urine Negative (Negative); Ketones Urine Negative (Negative); Leukocyte Esterase Urine 3+ (Negative); Nitrite Urine Positive (Negative); Protein Urine 2+ (Negative); Specific Gravity Urine 1.015 (1.000-1.030); Urobilinogen Urine 0.2 (0.2-1.0); pH Urine 6.5 (5.0-8.5)
[2022-09-05 14:51] LABS: Bacteria Urine Many; Squamous Epithelial Cell Urine Few (None-Few); WBC Urine >100 (0-5)
== END 2022-09-05 13:18 | disposition home or self-care (01) ==
LOC: NPINS 13:17
PROVIDERS: PCP Family Medicine; Visit Provider Nurse Practitioner Gerontology
DX: R41.0 Disorientation, unspecified (principal)
CPT/HCPCS: 81003; 81015; 87086; 87186

== ENCOUNTER 2022-10-17 13:26 | Outpatient (CLI) | payer MEDICARE, SELFPAY ==
[2022-10-17 14:17] LABS: Chloride* 106 mmol/L (96-114); Hemoglobin A1C* 6.01 % (0-5.6); Potassium* 4.4 mmol/L (3.6-5.1); Sodium* 140 mmol/L (135-149)
[2022-10-17 14:19] LABS: Creatinine* 1.4 mg/dL (0.5-1.5); Estimated Glomerular Filt Rate 38 ml/min
[2022-10-17 14:20] LABS: Blood Urea Nitrogen* 23 mg/dL (7-30); Calcium* 9.4 mg/dL (8.4-10.6); Carbon Dioxide* 26 mmol/L (20-32); Glucose* 134 mg/dL (60-115)
== END 2022-10-17 13:27 | disposition home or self-care (01) ==
LOC: LAB 13:29
PROVIDERS: PCP Family Medicine; Visit Provider Family Medicine
DX: D64.9 Anemia, unspecified (principal)
CPT/HCPCS: 36415; 80048; 83036

== ENCOUNTER 2022-11-30 11:30 | Outpatient (CLI) | payer MEDICARE, SELFPAY | END 2022-11-30 11:31 | disposition home or self-care (01) | PROVIDERS: PCP Family Medicine; Visit Provider Family Medicine | DX: E03.9 Hypothyroidism, unspecified (principal); M10.9 Gout, unspecified; E11.9 Type 2 diabetes mellitus without complications; E78.5 Hyperlipidemia, unspecified; D50.9 Iron deficiency anemia, unspecified; E66.01 Morbid (severe) obesity due to excess calories | CPT/HCPCS: 80048; 80061; 82728; 84443 ==

== ENCOUNTER 2023-01-13 17:32 | Emergency (ER) | payer MEDICARE, SELFPAY ==
[2023-01-13 17:56] VITALS: BP 179/88; PULSE 65; RESP 18; TEMP 36.9; O2SAT 97; BMI 34.2
--- NOTE | 2023-01-13 18:20 | CRLHL7_ITS ---
For Patients: As a result of the Century Cures Act, medical imaging exams and procedure reports are released immediately into your electronic medical record. You may view this report before your referring provider. If you have questions, please contact your health care provider. INDICATION: Right back pain, history of kidney stones COMPARISON: 10/11/2019 TECHNIQUE: CT of the abdomen and pelvis without intravenous contrast. Multiplanar axial, coronal, and sagittal reformats were reconstructed. Intravenous contrast: None. Oral contrast was not administered. FINDINGS: Lung bases: Partially visualized aortic valvular prosthesis. New peripheral soft tissue nodularity around the periphery of the previously seen cavitary lung lesion. Soft tissue measures 1.4 x 5.4 x 3.0 cm. Liver: Normal size and non-contrast attenuation. Gallbladder and biliary tree: The gallbladder is significantly distended. No adjacent pericholecystic inflammation. No biliary duct dilation. Pancreas: Normal. Spleen: Normal size. Adrenal glands: Normal. No nodules. Kidneys and bladder: Normal size and position. No obvious cyst or mass. No calculi. No urinary tract dilation. The urinary bladder is normal. GI: Diverticulosis without diverticulitis. No dilated segments. No abnormal bowel wall thickening. Moderate stool burden. The appendix is not seen. Vessels: Normal caliber abdominal aorta with moderate calcified atherosclerotic plaques. Peritoneum: No free fluid. Lymph nodes: No adenopathy. Pelvis: Physiologic appearance of the reproductive organs. Bones: No fractures. No focal bone lesions. Multilevel disc degeneration and facet arthropathy.. IMPRESSION: 1. No urinary tract calculi. No CT explanation for right back pain. 2. New nodular soft tissue around the pre-existing cavitary lesion in the left lower lobe. Finding is suspicious for malignancy. Please note that all CT scans at this facility use dose modulation, iterative reconstruction, and/or weight-based dosing when appropriate to reduce radiation dose to as low as reasonably achievable. Dictated by Michelle Metzger MD @ 01/13/2023 7:38:30 PM (Electronically Signed)
[2023-01-13] MEDS: OXYCODONE 5 MG TABLET 2.5 MG PO ×2 (18:45→19:55)
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
[2023-01-13 19:08] LABS: Basophils Absolute Auto 0.03 K/uL (0.00-0.30); Basophils Percent Auto 0.5 % (0.0-3.0); Eosinophils Absolute Auto 0.21 K/uL (0.00-0.50); Eosinophils Percent Auto 3.6 % (0.0-7.0); Hematocrit 37.5 % (33.0-51.0); Immature Granulocytes Abs Auto 0.01 K/uL (0.00-0.30); Immature Granulocytes Pct Auto 0.2 %; Lymphocytes Percent Auto 16.6 % (20-44); Mean Corpuscular HGB Conc 29 gm/dL (32-36); Mean Corpuscular Hemoglobin 26 pg (26-34); Mean Corpuscular Volume 89 fL (80-100); Monocytes Percent Auto 8.1 % (0.0-11.0); Platelet Count* 205 K/uL (140-440); RDW Coefficient of Variation % 20.8 % (11.5-15.5); Red Blood Count 4.22 m/uL (4.00-5.20); White Blood Count* 5.91 K/uL (4.50-11.00)
[2023-01-13 19:15] LABS: Slide Review Reflex No
[2023-01-13 19:38] LABS: Chloride* 109 mmol/L (96-114); Potassium* 4.6 mmol/L (3.6-5.1); Sodium* 143 mmol/L (135-149)
[2023-01-13 19:41] LABS: Creatinine* 1.2 mg/dL (0.5-1.5); Est. Creatinine Clearance* 26.41; Estimated Glomerular Filt Rate 45 ml/min
[2023-01-13 19:42] LABS: Anion Gap 9 mEq/L (7-15); Blood Urea Nitrogen* 21 mg/dL (7-30); Carbon Dioxide* 25 mmol/L (20-32); Glucose* 124 mg/dL (60-115)
[2023-01-13 20:08] LABS: Appearance Urine Clear (Clear); Bilirubin Urine Negative (Negative); Blood Urine Negative (Negative); Color Urine Yellow (Yellow); Glucose Urine Negative (Negative); Ketones Urine Negative (Negative); Leukocyte Esterase Urine Trace (Negative); Nitrite Urine Negative (Negative); Protein Urine Negative (Negative); Specific Gravity Urine >= 1.030 (1.000-1.030); Urobilinogen Urine 0.2 (0.2-1.0); pH Urine 5.5 (5.0-8.5)
[2023-01-13 20:12] VITALS: BP 189/81; PULSE 64; RESP 18; TEMP 36.9; O2SAT 97
[2023-01-13 20:26] LABS: Bacteria Urine Moderate; RBC Urine 0-2 (0-2); Squamous Epithelial Cell Urine Few (None-Few); WBC Urine 0-2 (0-5)
== END 2023-01-13 20:44 | disposition home or self-care (01) ==
PROVIDERS: Emergency Provider Emergency Medicine; PCP Family Medicine
DX: M54.50 Low back pain, unspecified (principal); R91.1 Solitary pulmonary nodule
CPT/HCPCS: 36415; 74176; 80048; 81001; 85025; 86140; 87086; 87186; 99284; A9270

== ENCOUNTER 2023-01-24 10:53 | Outpatient (CLI) | payer MEDICARE, SELFPAY | END 2023-01-24 10:54 | disposition home or self-care (01) | LOC: RAD 10:54 | PROVIDERS: PCP Family Medicine; Visit Provider Family Medicine | DX: I05.2 Rheumatic mitral stenosis with insufficiency (principal); I51.7 Cardiomegaly; I34.0 Nonrheumatic mitral (valve) insufficiency | CPT/HCPCS: 93306 ==

== ENCOUNTER 2023-01-25 13:56 | Outpatient (CLI) | payer MEDICARE, SELFPAY ==
--- NOTE | 2023-01-25 14:00 | CRLHL7_ITS ---
For Patients: As a result of the Century Cures Act, medical imaging exams and procedure reports are released immediately into your electronic medical record. You may view this report before your referring provider. If you have questions, please contact your health care provider. Indication: abnormal lung findings Technique: CT Chest w/ 75cc [id number] Please note that all CT scans at this facility use dose modulation, iterative reconstruction, and/or weight-based dosing when appropriate to reduce radiation dose to as low as reasonably achievable. Comparison: 01/13/2023, 06/07/2021, 12/08/2020 Findings: The cystic mass within the left lower lobe with surrounding lobular soft tissue densities is similar to 01/13/2023 and increased in solid component compared to 06/07/2021. The cystic area measures 2.3 cm and the lobular soft tissue areas measure approximately 2.4 cm. Linear densities adjacent to this lesion again noted, unchanged from the most recent study. No acute infiltrative changes within the right lung. Small nodular densities in the right midlung are similar to the 12/08/2020 exam, measuring less than 4 millimeters. Scarring within the right lower lobe. No pneumothorax. Scarring within the lateral left lung is unchanged since 12/08/2020. Mildly prominent mediastinal and right hilar lymph nodes are unchanged since 12/08/2020. Atherosclerotic changes. Postop changes to the aortic valve. No vertebral body compression fracture. Impression: Lobular solid nodular densities associated with the previously existing cystic lesion in the left lower lobe with the solid areas measuring up to approximately 2.[address]-PET recommended for further evaluation prior to consideration of percutaneous biopsy. Stable mildly prominent mediastinal and right hilar lymph nodes, unchanged from 2020. Stable small pulmonary nodules right lung and stable scarring lateral aspect left lung. Please note that all CT scans at this facility use dose modulation, iterative reconstruction, and/or weight-based dosing when appropriate to reduce radiation dose to as low as reasonably achievable. Dictated by Andrew Whittington MD @ 01/28/2023 10:09:28 AM (Electronically Signed)
== END 2023-01-25 13:57 | disposition home or self-care (01) ==
LOC: CT 13:57
PROVIDERS: PCP Family Medicine; Visit Provider Family Medicine
DX: R91.8 Other nonspecific abnormal finding of lung field (principal)
CPT/HCPCS: 71260; Q9967

== ENCOUNTER 2023-03-07 12:47 | Outpatient (CLI) | payer MEDICARE, SELFPAY ==
--- NOTE | 2023-03-07 13:15 | PE_ITS ---
[facility] [address] [facility] [address] Phone:?[phone] Fax:?[phone] Referring Physician Information: Andrew Rodríguez M.D. [address] [facility] [address] Phone:?[phone] Fax:?[phone] Patient:Saira Longoria D.O.B:?1940 Sex:?Female Phone:?[phone] [facility] MRN:?[id number] Exam Date:?03/07/2023 EXAM: PET/CT EYES TO THIGHS, CANCER RESTAGING CLINICAL INFORMATION: Lung nodule. TECHNICAL INFORMATION: Helical acquisition of data was obtained from the orbits to the upper thighs with reconstruction of 3.75 mm thick images at 3.[address] data was used for attenuation correction. PET scanning was performed through the same anatomic range 60 minutes following administration of 12.36 mCi of 18-FDG delivered intravenously. The patient's glucose at the time of the injection was 143 mg/dL. PET, CT and PET/CT fusion images are interpreted using a computer viewing workstation. PET, CT and PET/CT fusion images were archived and saved in the patient's permanent medical record. COMPARISON: Chest CTs from 01/25/2023 and 12/08/2020. INTERPRETATION: Head and Neck: There are no abnormal hypermetabolic foci within the head or neck. There is physiologic uptake in the intracranial soft tissues. Chest: When compared to the diagnostic chest CT from 01/25/2023, there is overall stable size and appearance of the cavitating mass that occupies the left lower lobe, measuring roughly 4.8 x 2.2 cm. (Note that the prior CT report describes this as a cystic mass but there is no liquid component; it is ~50% cavitated with eccentric solid lobulations.) Maximum SUV is 12.72. Prior diagnostic CT shows that the mass broadly abuts the pleural surface without nhi chest wall invasion or malignant effusion. There are no other abnormal hypermetabolic foci within the chest. Background mediastinal blood pool uptake has a maximum SUV of 3.42. No additional lung nodules or masses detected on this free-breathing exam. No intrathoracic lymphadenopathy in terms of size, morphology, or metabolic rate. Abdomen and Pelvis: There are no abnormal hypermetabolic foci within the abdomen or pelvis. Background hepatic parenchymal uptake has a maximum SUV of 4.01. There is physiologic excretion of radiotracer in the urine and bowel. Skeleton, Musculature, and Integument: No abnormal hypermetabolic foci within the skeleton. No nhi osteoblastic or osteolytic disease. 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 Although the lesion would be amenable to percutaneous biopsy, the risk for tumor-pleural fistula would be relatively high. Recommend thoracic surgical consultation. Electronically signed on 03/12/2023 8:57:00 AM by Didier Kingston M.D.
== END 2023-03-07 12:48 | disposition home or self-care (01) ==
LOC: RAD 12:48
PROVIDERS: PCP Family Medicine; Visit Provider Family Medicine
DX: R91.1 Solitary pulmonary nodule (principal)
CPT/HCPCS: 78815; A9552

== ENCOUNTER 2023-04-04 09:12 | Outpatient (CLI) | payer OTHER, SELFPAY ==
--- OUTSIDE RECORDS SUMMARY | 2023-04-04 09:24 | XMS_ITS | Clinical Summary ---
Author Name Unknown Organization [employer] [facility] Address [place], [place] [address] Care Team Providers Care Heel Seat Flap Stapler Name Role Phone Sal Rodrigues MD Primary Care Provider + Cori Payne MD Unavailable Arabella Diaz RN, BSN Unavailable [phone] Beto Rinaldi MD Unavailable Allergies Active Allergy Reactions Criticality Noted Date Comments Penicillins Hives,Angioedema High 04/02/2018 Medications Medication Sig Dispensed Refills Start Date End Date Status atorvastatin (LIPITOR) 40 mg tablet Take 1 tablet by mouth once daily. 0 03/26/2018 Active levothyroxine (SYNTHROID) 137 mcg tablet Take 137 mcg by mouth once daily. 1 02/26/2018 Active allopurinol (ZYLOPRIM) 100 mg tablet Take 200 mg by mouth once daily. 0 Active acetaminophen (TYLENOL) 325 mg tablet Take 2 tablets by mouth every 4 hours if needed (For mild pain.). Max acetaminophen dose: 4000mg in 24 hrs. 0 11/13/2019 Active loperamide (IMODIUM) 2 mg capsule Take 4mg by mouth with 1st loose stool, then 2mg with each subsequent loose stool. Max 16 mg in 24 hrs 0 06/07/2021 Active amiodarone (CORDARONE) 200 mg tabletIndicatio ns:Atypical atrial flutter (HC) Take 1 Tablet (200 mg) by mouth once daily. 90 Tablet 3 12/19/2021 Active omeprazole (PRILOSEC) 20 mg Delayed-Release capsule TAKE 1 CAP BY MOUTH ONCE DAILY 0 04/11/2022 Active Saccharomyces boulardii (FLORASTOR) 250 mg capsule Take by mouth two times daily. 0 04/11/2022 Active T.E.D. Anti-Embolism Stocking misc PUT ON IN THE MORNING AND REMOVE AT BEDTIME 0 02/24/2022 Active Systane Complete 0.6 % ophthalmic solution INSTILL 1 DROP INTO BOTH FOUR TIMES A DAY FOR DRY EYES 0 08/10/2022 Active QUEtiapine (SEROQUEL) 300 mg tabletIndicatio ns:Bipolar I disorder (HC) Take 1 Tablet (300 mg) by mouth at bedtime. 90 Tablet 1 02/27/2023 Active valsartan (DIOVAN) 320 mg tablet Take 320 mg by mouth once daily. 0 03/06/2023 Active amLODIPine (NORVASC) 5 mg tablet Take 5 mg by mouth once daily. 0 03/17/2023 Active meloxicam 15 mg tablet Take 15 mg by mouth one time if needed. 0 01/18/2023 Active oxyCODONE (ROXICODONE) 5 mg immediate release tablet Take 5 mg by mouth every 6 hours if needed. 0 01/18/2023 Active nystatin (MYCOSTATIN) 100,000 unit/gram topical cream Apply topically to affected area(s). 0 09/28/2022 Active FERREX 150 150 mg iron capsule Take 1 capsule by mouth every Saturday, Saturday and Saturday. 5 02/07/2018 4 Discontinued (*Patient states no longer taking) multivitamins-m inerals-lutein (CENTRUM SILVER) tab tablet Take 1 tablet by mouth once daily. 0 4 Discontinued (*Patient states no longer taking) OneTouch Ultra Blue Test Strip strip As directed 0 08/30/2020 4 Discontinued (*Patient states no longer taking) potassium citrate (UROCIT-K) 10 mEq (1,080 mg) tabletIndicatio ns:Kidney stone TAKE 1 TABLET (10 MEQ) BY MOUTH 2 TIMES DAILY WITH MEALS. TAKE WITH FOOD. 180 Tablet 0 06/12/2021 4 Discontinued (*Patient states no longer taking) metoprolol succinate (Toprol XL) 50 mg sustained-relea se tabletIndicatio ns:S/P TAVR (transcatheter aortic valve replacement) Take 1 Tablet (50 mg) by mouth once daily. 90 Tablet 3 07/20/2021 4 Discontinued (*Patient states no longer taking) meclizine (ANTIVERT) 25 mg tablet Take 25 mg by mouth every 8 hours if needed. 0 07/18/2021 4 Discontinued (*Patient states no longer taking) metFORMIN (GLUCOPHAGE) 500 mg tablet metformin 500 mg tablet TAKE 1 TABLET BY MOUTH TWICE A DAY WITH MEALS 0 4 Discontinued (*Patient states no longer taking) nystatin powder (MYCOSTATIN) powder 0 05/16/2022 4 Discontinued (*Patient states no longer taking) Tab-A-Ara Take 1 Tablet by mouth once daily. 0 04/11/2022 4 Discontinued (*Patient states no longer taking) Pain Reliever ES,acetaminophn , 500 mg tablet 2 tablets twice a day 0 08/27/2022 4 Discontinued (Duplicate therapy (E-cancel not sent)) metFORMIN (GLUCOPHAGE XR) 500 mg Extended-Releas e tablet 500 mg two times daily with meals. 0 07/26/2022 4 Discontinued (*Patient states no longer taking) Active Problems Problem Noted Date Diagnosed Date Bipolar I disorder 09/08/2021 Anxiety 09/08/2021 Severe obesity (BMI 35.0-39.9) with comorbidity 10/18/2019 Kidney stone 06/23/2018 CKD (chronic kidney disease) stage 3, GFR 30-59 ml/min 05/03/2018 Overview: Baseline about 1.0 Elevated lipase 05/03/2018 Right Ureteral stone with hydronephrosis 019 Overview: H/o 9mm right kidney stone s/p lithotripsy 2016 6mm right w/ hydro Controlled type 2 diabetes with neuropathy 05/02 Aortic stenosis, moderate-severe 05/02/2018 Overview: Follows w/ Dr. 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; saw hematology - given IV iron infusions over ~1.5 years then transitioned to oral iron Resolved Problems Problem Noted Date Diagnosed Date Resolved Date Severe depression 05/02/2018 09/08/2021 Overview: S/p ECT Encounters Date Type Department Care Team Description 04/03/2023 12:44 PM MAT INSPECTOR - 04/03/2023 11:59 PM MAT INSPECTOR Hospital Encounter [facility] [address] [place] [address] Naeem Gu MD Lung nodule 04/03/2023 Travel 03/28/2023 2:00 PM MAT INSPECTOR Office Visit [facility] [address] [place] [address] Beto Rinaldi MD Consult 03/27/2023 Travel 03/27/2023 Telephone [facility] [address] [place] [address] Naeem Gu MD PVC 03/20/2023 Telephone [facility] [address] [place] [address] [facility] Cancer Referral (Left Lung Mass) 03/19/2023 Orders Only [facility] [address] [place] [address] [facility] ([facility] Final Zio Report 03/12/2023 Refill [facility] [address] [place] [address] Cori Payne MD Refill Request (Quetiapine) 02/27/2023 11:15 AM MAT INSPECTOR Office Visit [facility] [address] [place] [address] Cori Payne MD Follow Up; Medication Management 02/27/2023 Travel 02/01/2023 3:30 PM MAT INSPECTOR Office Visit [facility] [address] [place] [address] Zayra Ayala MD 02/01/2023 Travel 01/24/2023 11:00 AM MAT INSPECTOR Orders Only [facility] [address] [place] [address] 2 scans: (2-Ord) ECHO TTE COMPLETE WO CONTRAST ([id number]) 01/24/2023 Travel from Last 3 Months Immunizations Name Administration Dates Next Due COVID-19 vaccine (Moderna 50 mcg/0.5mL) 12YO+ BIVALENT PF, MDV 08/30/2022 COVID-19 vaccine ([employer] 30mcg/0.3mL) P F, MDV 05/14/2020,04/23/2020 Covid-19 Vaccine (Unspecified) 05/02/2021,2020 Influenza Virus, Unspecified 11/30/2020,11/28/19 02 Influenza, High-dose Quadrivalent Inactivated ,12/14/2020 Influenza, IIV3 (Age >=3 years) 12/20/1998 Influenza, IIV4 12/25/2019,12/16/2018 Pneumococcal Conj 20-valent (Prevnar 20) 022 Pneumococcal conj 13-Valent (Prevnar 13) 022 Pneumococcal, Unspecified 11/17/2019,11/27/2001 Tdap 06/08/2018 Family History Medical History Relation Name Comments Diabetes Brother Heart Disease Brother Heart failure Father Cancer Mother brain Relation Name Status Comments Brother Daughter Alive Father Mother Social History Tobacco Use Types Packs/Day Years Used Date Smoking Tobacco: Former Cigarettes 2 30 1 0 - 1989 Smokeless Tobacco: Never Tobacco Cessation:Counseling Given: Not Answered Comments:Quit 30 years ago Alcohol Use Standard Drinks/Week Comments Not Currently 0 (1 standard drink = 0.6 oz pur e alcohol) nonr PHQ-2 Answer Date Recorded PHQ-2 TOTAL SCORE 0 02/27/2023 Social Connections Answer Date Recorded Frequency of Communication with Friends and Fami ly Not on file 03/08/2021 Alcohol Use Answer Date Recorded How often do you have a drink containing alcohol ? 1 09/08/2021 How many drinks containing a lcohol do you have on a typical day when you are drinking? 0 09/08/2021 How often do you have five or more drinks on one occasion? 0 09/08/2021 Financial Resource Strain Answer Date R ecorded Difficulty of Paying Living Expenses Not on file 03/08/2021 Difficulty of Paying Living Expenses Not on file 03/08/2021 Sex and Gender Information Value Date Recorded Sex Assigned at Not on file Gender Identity Not on file Sexual Orientation Not on file Obstetrics History Last Filed Vital Signs Vital Sign Reading Time Taken Comments Blood Pressure 136/62 03/28/2023 1:40 PM MAT INSPECTOR Pulse 66 03/28/2023 1:40 PM MAT INSPECTOR Temperature 36.2 ??C (97.1 ??F) 03/28/2023 1:40 PM CS T Respiratory Rate 12 03/28/2023 1:40 PM MAT INSPECTOR Oxygen Saturation 96% 03/28/2023 1:40 PM MAT INSPECTOR Inhaled Oxygen Concentration - - Weight 81.1 kg (178 lb 11.2 oz) 03/28/2023 1:40 PM MAT INSPECTOR Height 152.4 cm (5') 03/28/2023 1:40 PM MAT INSPECTOR Body Mass Index 34.9 03/28/2023 1:40 PM MAT INSPECTOR Plan of Treatment Upcoming Encounters Date Type Department Care Team (Latest Contact Info) Description 04/08/2023 6:00 AM MAT INSPECTOR Appointment [facility] Medical Imaging [address] [place] [address] 04/08/2023 7:15 AM MAT INSPECTOR Hospital Encounter [facility] [address] [place] [address] Beto Rinaldi MD [address] [place] [address] 04/08/2023 7:15 AM MAT INSPECTOR - 04/08/2023 1:45 PM MAT INSPECTOR Surgery [facility] [address] [address] Beto Rinaldi MD [address] [place] [address] Flexible bronchoscopy, robotic bronchoscopy with biopsy, 08/28/2023 11:15 AM CDT Office Visit [facility] [address] [place] [address] Cori Payne MD [address] [place] [address] Scheduled Procedures Name Priority Associated Diagnoses Date/Ti ca ROBOTIC ASSISTED BRONCHOSCOP Y ION Elective Lung nodule 04/08/2023 7:15 AM MAT INSPECTOR BRONCHOSCOPY ENDOBRONCHIAL ULTRASOUND Elective Lung nodule 04/08/2023 7:15 AM MAT INSPECTOR THORACOSCOPY WITH LUNG RESECTION Elective Lung nodule 04/08/2023 7:15 AM MAT INSPECTOR THORACOTOMY Elective Lung nodule 04/08/2023 7:15 AM MAT INSPECTOR Health Maintenance Due Date Last Done Comments Zoster (shingles) series for age 50+ (1 of 2) 10/16/1991 DEXA/DXA scan for age 65+ 2006 Medicare Wellness for age 65+ 2006 COVID-19 vaccine series ( season) 2022 08/30/2022, 01/23/2022, 05/02/2021, Additional history exists Influenza for age 65+ 11/16/2022 01/02/2022 , 12/14/2020, 11/30/2020, Additional history exists Depression screening for age 12+ 02/28/2024 02/27/2023, 09/03/2022, 05/23/2022, Additional history exists BMI (ht and wt on same day) for age 18+ 03/28/2024 03/28/2023, 05/23/2022, 12/15/2020 Tetanus booster 06/08/2028 06/08/2018 Tdap Completed 06/08/2018 Pneumococcal series for age 65+ Completed 02/27/2022, 02/21/2022, 11/17/2019, Additional history exists Medical Devices Implanted Type Area Safety Sealer Device Identifier Shelf Expiration Date Model / Serial / Lot Stent Uret [id number] Silhouette - [id number] Implanted:Qty: 1 on 05/03/2018 by Alin Miguel MD at [facility] Right: [employer] [id number]# / / [id number] Stent Uret [id number] Silhouette - [id number] Implanted:Qty: 1 on 05/03/2018 by Alin Miguel MD at [facility] Right: [employer] [id number]# / / [id number] Procedures Procedure Name Priority Date/Time Associated Diagnosis Comments COMPLETE PULMONARY FUNCTION TEST WITH BRONCHODILATOR CLAUDETTE 04/03/2023 1:47 PM MAT INSPECTOR Lung nodule EXTENDED HOLTER Routine 03/22/2023 Atypical atrial flutter (HC) ECHO TTE COMPLETE WO CONTRAST Routine 01/24/2023 12:11 PM MAT INSPECTOR Mitral stenosis from Last 3 Months Results * COMPLETE PULMONARY FUNCTION TEST WITH BRONCHODILATOR (04/03/2023 1:47 PM MAT INSPECTOR) Narrative Procedure Note Hany Cabrera MD - 04/03/2023 1:47 PM CST DATE OF SERVICE: 04/03/2023 DIAGNOSIS: Lung nodule. Normal spirometry. Lung volumes measured by body plethysmography arewithin normal limits. Diffusing capacity is normal. Results are automatically released to your [facility] ([employer]) accountonce available, in compliance with federal regulations. This means thatyou may see your results before your provider has had a chance to reviewthem. Please allow 2-3 business days for your provider to comment on theresults. MD SELENE CARUSO/QUANG/MITA VJID: [id number] TJID: [id number] Naeem Gu MD PFT ORD * EXTENDED HOLTER (03/22/2023) Narrative Melissa Hanson L - 03/22/2023 Patient enrolled with vendor this date for Extended Holter home enrollment, duration 7 days. Device will be mailed to patient by vendor. ??Report will be found in the Procedures tab approximately 7-10 days after end of monitor period. Zayra Ayala MD CARDIAC SERVICES ORD * ECHO TTE COMPLETE WO CONTRAST (01/24/2023 12:11 PM MAT INSPECTOR) AORTIC VALVE MEAN PG 15 mmHg EJECTION FRACTION 67 % PEAK TR VELOCITY 2.8 m/s LVEDD 4.2 cm Anatomical Region Laterality Modality Ultrasound 01/24/2023 11:1 9 AM MAT INSPECTOR Narrative 01/24/2023 12:32 PM MAT INSPECTOR ECHOCARDIOGRAM BANDAR THOMPSON ? Accession#: ?? [id number] : ?1940 82 years Study Date: ?? 01/24/2023 11:19:01 AM Gender: F ?BP: ? 144/83 mmHg Height: 152.00 cm ?BSA: ?1.77 m? ? ? Weight: 80.00 kg ? Tech: ? MTS ? Referring MD: SAL RODRIGUES Site: ? [facility] Reading Location: MOBILE OP Patient Location: Outpatient. Procedure: 2D, Spectral Doppler and Color Doppler. Indication for study: Mitral stenosis Cardiac Rhythm: Regular.Study quality: Final Impressions: 1. Normal left ventricular size, mildly increased wall thickness, normal global systolic function, calculated EF of 67 %. 2. Moderately enlarged left atrium. 3. The aortic valve is a normal functioning 23 mm Sendy 3 Ultra bioprosthesis AVR, no stenosis and no regurgitation. 4. The mitral valve is sclerotic, mild to moderate mitral regurgitation. Chamber Sizes and Function Normal left ventricular size, mildly increased wall thickness, normal global systolic function, calculated EF of 67 %. Left atrial size is moderately enlarged. Right ventricular cavity size is normal, global systolic RV function is normal. RV wall thickness is normal. The right atrium is normal. Right atrial volume index is 26 ml/m? ? ?. Right atrial area is 18 cm? ? ?. The pulmonary artery is of normal size and origin. The sinus of Valsalva is not well visualized. The ascending aorta is normal sized. Valves, RV Pressures and Diastolic Function The aortic valve is a normal functioning 23 mm Sendy 3 Ultra bioprosthesis replacement, no stenosis and no regurgitation. The mitral valve is sclerotic, mild to moderate mitral regurgitation. Normal diastolic function. The tricuspid valve is normal in structure. Tricuspid regurgitation is trace regurgitation. The tricuspid regurgitant velocity is 2.8 m/s, the estimated right ventricular systolic pressure is 31 mmHg plus right atrial pressure. There is normal estimated pulmonary pressure by tricuspid regurgitation velocity and right atrial pressure. The pulmonic valve is normal. No pulmonary regurgitation. Masses, Effusion, Shunts There is no pericardial effusion. The inferior vena cava is normal sized, respiratory size variation greater than 50%. Interatrial septum is not well visualized. MEASUREMENTS AND CALCULATIONS 2-D Measurements and LV Function: LVID (d) 4.2 cm Planimetered EF 67 % LVID (s) 3.2 cm LV FS% (2D) ? 24 % IVS (d) ??1.3 cm LVOT diameter ?? 1.8 cm LVPW (d) 1.3 cm HR ?76 bpm Asc Ao ?? 3.1 cm LA Vol index ?40 ml/m2 LA ? 5.0 cm RA Vol index ?26 ml/m2 ?RA area ? 18 cm?RV Max 4C (d) ?? 3.6 cm Diastology: Mitral ?Tissue Doppler ?Pulmonary veins E Peak 1.4 m/s ??e', Septum ? 0.06 m/s Pulm s ?24.2 cm/s A Peak 0.5 m/s ??e', Lateral ?0.09 m/s Pulm d ?36.7 cm/s E/A ?2.5 ?E/e' Average ?? 17.42 ?Pulm s/d ratio ??0.66 DT ? 229 msec Aortic Valve: Vmax ? 2.8 m/s ??CHEO (V) ?? 0.99 cm? ? ? VTI ?0.54 m ?? CHEO (I) ?? 1.07 cm? ? ? LVOT V max 1.1 m/s ??Max PG ?31 mmHg LVOT VTI ?? 0.23 m ?? Mean PG ?? 15 mmHg SV ? 58 ml ?Dim Index 0.42 SV index ?? 33 ml/m? ? ? CO ?4.4 l/min ?CI ?2.5 l/min/m? ? ? Mitral Valve: MVA ? 3.3 cm? ? ? MR TVI 1.97 m MV P 1/2 ??67 msec MV Mean G 2 mmHg MV VTI ?0.28 m Tricuspid Valve and estimated PA pressures: TR Vmax 2.8 m/s TAPSE 2.7 cm TR maxG 31 mmHg . This study was interpreted by an [facility] accredited facility. CC: [facility]. ??Final ?? Procedure Note Eric Schmitz MD - 01/24/2023 ECHOCARDIOGRAM BANDAR THOMPSON : 1940 82 years Study Date: 01/24/2023 11:19:01 AM Gender: F BP: 144/83 mmHg Height: 152.00 cm BSA: 1.77 m? ? ? Weight: 80.00 kg Tech: [facility] Referring MD: SAL RODRIGUES Site: [facility] Reading Location: MOBILE OP Patient Location: Outpatient. Procedure: 2D, Spectral Doppler and Color Doppler. Indication for study: Mitral stenosis Cardiac Rhythm: Regular.Study quality: Final Impressions: 1. Normal left ventricular size, mildly increased wall thickness, normalglobal systolic function, calculated EF of 67 %. 2. Moderately enlarged left atrium. 3. The aortic valve is a normal functioning 23 mm Sendy 3 Ultrabioprosthesis AVR, no stenosis and no regurgitation. 4. The mitral valve is sclerotic, mild to moderate mitralregurgitation. Chamber Sizes and Function Normal left ventricular size, mildly increased wall thickness, normalglobal systolic function, calculated EF of 67 %. Left atrial size ismoderately enlarged. Right ventricular cavity size is normal, globalsystolic RV function is normal. RV wall thickness is normal. The rightatrium is normal. Right atrial volume index is 26 ml/m? ? ?. Right atrialarea is 18 cm? ? ?. The pulmonary artery is of normal size and origin. Thesinus of Valsalva is not well visualized. The ascending aorta is normalsized. Valves, RV Pressures and Diastolic Function The aortic valve is a normal functioning 23 mm Sendy 3 Ultrabioprosthesis replacement, no stenosis and no regurgitation. The mitralvalve is sclerotic, mild to moderate mitral regurgitation. Normaldiastolic function. The tricuspid valve is normal in structure. Tricuspidregurgitation is trace regurgitation. The tricuspid regurgitant velocityis 2.8 m/s, the estimated right ventricular systolic pressure is 31 mmHgplus right atrial pressure. There is normal estimated pulmonary pressureby tricuspid regurgitation velocity and right atrial pressure. Thepulmonic valve is normal. No pulmonary regurgitation. Masses, Effusion, Shunts There is no pericardial effusion. The inferior vena cava is normal sized,respiratory size variation greater than 50%. Interatrial septum is notwell visualized. MEASUREMENTS AND CALCULATIONS 2-D Measurements and LV Function: LVID (d) 4.2 cm Planimetered EF 67 % LVID (s) 3.2 cm LV FS% (2D) 24 % IVS (d) 1.3 cm LVOT diameter 1.8 cm LVPW (d) 1.3 cm HR 76 bpm Asc Ao 3.1 cm LA Vol index 40 ml/m2 LA 5.0 cm RA Vol index 26 ml/m2 RA area 18 cm? ? ? RV Max 4C (d) 3.6 cm Diastology: Mitral Tissue Doppler Pulmonary veins E Peak 1.4 m/s e', Septum 0.06 m/s Pulm s 24.2 cm/s A Peak 0.5 m/s e', Lateral 0.09 m/s Pulm d 36.7 cm/s E/A 2.5 E/e' Average 17.42 Pulm s/d ratio 0.66 DT 229 msec Aortic Valve: Vmax 2.8 m/s CHEO (V) 0.99 cm? ? ? VTI 0.54 m CHEO (I) 1.07 cm? ? ? LVOT V max 1.1 m/s Max PG 31 mmHg LVOT VTI 0.23 m Mean PG 15 mmHg SV 58 ml Dim Index 0.42 SV index 33 ml/m? ? ? CO 4.4 l/min CI 2.5 l/min/m? ? ? Mitral Valve: MVA 3.3 cm? ? ? MR TVI 1.97 m MV P 1/2 67 msec MV Mean G 2 mmHg MV VTI 0.28 m Tricuspid Valve and estimated PA pressures: TR Vmax 2.8 m/s TAPSE 2.7 cm TR maxG 31 mmHg . This study was interpreted by an [facility] accredited facility. CC: [facility] ([facility]. Final Sal Rodrigues MD ECHO ORD from Last 3 Months Advance Directives Latest Code Status on File Code Status Date Activated Date Inactivated Comments Full Code 03/01/2021 12:48 PM 03/01/2021 4:24 PM Question Answer Comments Code Status Discussion: Other Code Status History Code Status Date Activated Date Inactivated Comments Full Code 12/23/2020 12:42 PM 12/23/2020 4:51 PM Question Answer Comments Code Status Discussion: Per Existing Order Full Code 11/07/2019 5:25 AM 11/13/2019 4:28 PM Question Answer Comments Code Status Discussion: Discussed Full Code 05/02/2018 9:46 PM 05/03/2018 8:26 PM Care Teams Heel Seat Flap Stapler Relationship Specialty Start Date End Date Sal Rodrigues MD [address] [place] [address] PCP - General Family Practice 09/08/21 Cori Payne MD [address] [place] [id number] Psychiatry 09/08/21 Arabella Diaz, RN, BSN [address] [place] [id number] Nurse Navigator - Oncology Registered Nurse 03/27/23 Beto Rinaldi MD [address] [place] [address] Surgery - Cardiothoracic 03/28/23
== END 2023-04-04 09:13 | disposition home or self-care (01) ==
PROVIDERS: PCP Family Medicine; Visit Provider Family Medicine
DX: Z01.818 Encounter for other preprocedural examination (principal); I10 Essential (primary) hypertension; Z13.9 Encounter for screening, unspecified
CPT/HCPCS: 80048; 82728; 85025

== ENCOUNTER 2023-05-19 08:35 | Emergency (ER) | payer OTHER, SELFPAY ==
[2023-05-19 08:44] VITALS: BP 99/53; PULSE 84; RESP 18; TEMP 36.7; O2SAT 94; BMI 35.2
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
[2023-05-19 09:01] VITALS: BP 120/55; PULSE 82; RESP 14; O2SAT 95
[2023-05-19] MEDS: 0.9 % SODIUM CHLORIDE 1000 ml 1,000 ML IV (09:13)
[2023-05-19 09:17] LABS: Basophils Percent Auto 0.4 % (0.0-3.0); Eosinophils Percent Auto 3.8 % (0.0-7.0); Hematocrit 33.6 % (33.0-51.0); Hemoglobin* 10.5 gm/dL (12.0-16.0); Immature Granulocytes Pct Auto 6.1 %; Lymphocytes Percent Auto 18.3 % (20-44); Mean Corpuscular HGB Conc 31 gm/dL (32-36); Mean Corpuscular Hemoglobin 30 pg (26-34); Mean Corpuscular Volume 94 fL (80-100); Monocytes Percent Auto 2.3 % (0.0-11.0); Neutrophils Percent Auto 69.1 % (42.0-72.0); RDW Coefficient of Variation % 14.9 % (11.5-15.5); Red Blood Count 3.56 m/uL (4.00-5.20); White Blood Count* 2.63 K/uL (4.50-11.00)
[2023-05-19 09:31] VITALS: BP 126/77; PULSE 75; RESP 12; O2SAT 95
[2023-05-19 09:31] LABS: Chloride* 108 mmol/L (96-114); Sodium* 137 mmol/L (135-149)
[2023-05-19 09:32] LABS: Potassium* 4.3 mmol/L (3.6-5.1)
[2023-05-19 09:34] LABS: Creatinine* 1.1 mg/dL (0.5-1.5); Est. Creatinine Clearance* 28.81; Estimated Glomerular Filt Rate 50 ml/min
[2023-05-19 09:35] LABS: Anion Gap 12 mEq/L (7-15); Blood Urea Nitrogen* 44 mg/dL (7-30); Calcium* 8.4 mg/dL (8.4-10.6); Carbon Dioxide* 17 mmol/L (20-32); Glucose* 152 mg/dL (60-115)
[2023-05-19 09:53] LABS: Platelet Count* 270 K/uL (140-440); Slide Review Reflex Yes
[2023-05-19 09:55] LABS: Slide Review Acceptable Review (Acceptable)
[2023-05-19 10:38] VITALS: BP 99/53; PULSE 84; TEMP 36.7
[2023-05-19] MEDS: HEPARIN 500 UNIT/5 ML SYRINGE IVF (10:45)
== END 2023-05-19 10:45 | disposition home or self-care (01) ==
LOC: ED 09:01
PROVIDERS: Emergency Provider Family Medicine; PCP Family Medicine
DX: R19.7 Diarrhea, unspecified (principal)
CPT/HCPCS: 36415; 80048; 85025; 99284; J1642; J7030

== ENCOUNTER 2023-05-20 06:57 | Outpatient (CLI) | payer OTHER, SELFPAY | END 2023-05-20 06:58 | disposition home or self-care (01) | LOC: AMB 05-28 12:36 | PROVIDERS: PCP Family Medicine; Visit Provider Family Medicine | DX: R53.1 Weakness (principal); S79.911A Unspecified injury of right hip, initial encounter; S79.912S Unspecified injury of left hip, sequela; S29.9XXA Unspecified injury of thorax, initial encounter; W18.30XA Fall on same level, unspecified, initial encounter; Y92.031 Bathroom in apartment as the place of occurrence of the external cause | CPT/HCPCS: A0425; A0429 ==

== ENCOUNTER 2023-05-20 07:27 | Inpatient (IN) | payer OTHER, SELFPAY ==
[2023-05-20] VITALS (22 sets, daily range): BP systolic 82–146; BP diastolic 27–85; PULSE 73–144; RESP 16–18; TEMP 36.1–38.5; O2SAT 87–99; BMI 35.3; BMI 354.6
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
[2023-05-20 08:22] LABS: Lactate* 1.4 mmol/L (0.5-1.9)
[2023-05-20] MEDS: 0.9 % SODIUM CHLORIDE 1000 ml 1,000 ML IV (08:24)
--- NOTE | 2023-05-20 08:27 | CT_ITS ---
Final Report Patient: JOZEF THOMPSON Facility:?[facility] Patient ID:?[id number] Site Patient ID:?[id number]. Site :?[id number] Study:?CT Abdomen/Pelvis 89CC ISOVUE 370-05/20/2023 9:03:21 AM Ordering Physician:?DR. BENTON Final Report: INDICATION: Left lower quadrant tenderness and diarrhea, on chemotherapy for lung cancer COMPARISON: PET-CT 03/07/2023 TECHNIQUE: CT of the abdomen and pelvis with intravenous contrast. Multiplanar reformats are included. Contrast: 89 mL Isovue 370 FINDINGS: Lung bases: Partially visualized aortic valve prosthesis. Loculated appearing fluid in the posteromedial left lower hemithorax. Liver: Hepatomegaly measuring 19 centimeters. This is not a new finding. Normal parenchymal enhancement with no focal mass. Patent vasculature. Gallbladder and bile ducts: Normal gallbladder. No bile duct dilation. Pancreas: Normal. Spleen: Spleen length is 12 centimeters, normal.. Adrenal glands: Normal. Kidneys: Normal parenchyma. No cyst or solid mass. No calculi. No urinary tract dilation. Urinary bladder: Normal. Vessels: Atherosclerosis without aneurysm. Pelvis: No cyst or mass. Bowel: Focally inflamed diverticuli in the distal descending colon. No perforation or abscess. Mild mucosal thickening and hyperemia in the sigmoid colon with some mild wall thickening consistent with colitis. No pneumatosis. No perforation or abscess. There is a small stool burden. There are no dilated loops of small bowel. The appendix is surgically absent. Lymph nodes: No adenopathy. Peritoneum: No ascites. Bones: No fractures. No focal worrisome bone lesions. Abdominal wall: No hernia. IMPRESSION: 1. Acute uncomplicated descending colon diverticulitis. 2. Sigmoid colitis and proctitis. Please note that all CT scans at this facility use dose modulation, iterative reconstruction, and/or weight-based dosing when appropriate to reduce radiation dose to as low as reasonably achievable. Dictated by Michelle Metzger MD @ 05/20/2023 9:12:14 AM (Electronic Signature)
[2023-05-20 08:30] LABS: Basophils Percent Auto 2.1 % (0.0-3.0); Eosinophils Percent Auto 10.4 % (0.0-7.0); Hematocrit 31.4 % (33.0-51.0); Hemoglobin* 9.9 gm/dL (12.0-16.0); Immature Granulocytes Pct Auto 2.1 %; Lymphocytes Percent Auto 52.1 % (20-44); Mean Corpuscular HGB Conc 32 gm/dL (32-36); Mean Corpuscular Hemoglobin 30 pg (26-34); Mean Corpuscular Volume 94 fL (80-100); Monocytes Percent Auto 10.4 % (0.0-11.0); Neutrophils Percent Auto 22.9 % (42.0-72.0); Platelet Count* 77 K/uL (140-440); RDW Coefficient of Variation % 14.5 % (11.5-15.5); Red Blood Count 3.34 m/uL (4.00-5.20)
[2023-05-20 08:41] LABS: Slide Review Reflex Yes; White Blood Count* 0.48 K/uL (4.50-11.00)
[2023-05-20 08:43] LABS: Albumin* 3.2 g/dL (3.3-5.0); Chloride* 108 mmol/L (96-114); Potassium* 4.1 mmol/L (3.6-5.1); Sodium* 134 mmol/L (135-149)
[2023-05-20 08:45] LABS: Bilirubin Total* 0.8 mg/dL (0.1-1.5); Creatinine* 1.3 mg/dL (0.5-1.5); Est. Creatinine Clearance* 24.38; Estimated Glomerular Filt Rate 41 ml/min
[2023-05-20 08:46] LABS: Alanine Aminotransferase* 26 U/L (4-35); Alkaline Phosphatase* 80 U/L (40-150); Anion Gap 9 mEq/L (7-15); Aspartate Amino Transferase* 24 U/L (12-35); Blood Urea Nitrogen* 35 mg/dL (7-30); Calcium* 8.5 mg/dL (8.4-10.6); Carbon Dioxide* 17 mmol/L (20-32); Glucose* 191 mg/dL (60-115)
[2023-05-20 08:57] LABS: Troponin I* 0.04 ng/mL (0.01-0.04)
[2023-05-20 08:59] LABS: Slide Review Acceptable Review (Acceptable)
[2023-05-20] MEDS: LOPERAMIDE HCL 2 MG CAPSULE PO (09:03)
[2023-05-20 10:22] LABS: Appearance Urine Cloudy (Clear); Bilirubin Urine Negative (Negative); Blood Urine 3+ (Negative); Color Urine Yellow (Yellow); Glucose Urine Negative (Negative); Ketones Urine Negative (Negative); Leukocyte Esterase Urine Trace (Negative); Nitrite Urine Negative (Negative); Protein Urine Trace (Negative); pH Urine 5.5 (5.0-8.5)
[2023-05-20 10:35] LABS: Bacteria Urine Many; Squamous Epithelial Cell Urine Few (None-Few)
[2023-05-20 10:36] LABS: Other Sediment Urine Few
[2023-05-20 10:37] LABS: Fine Granular Casts Urine Few
--- NOTE | 2023-05-20 10:48 | ED.NURSE ---
report given to Ana Maria VILA, pt will transfer to room 262 via cart.
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
[2023-05-20] MEDS: ERTAPENEM 1 GM in 0.9 % SODIUM CHLORIDE Mini-bag 100 ML IVPB (11:01)
[2023-05-20] MEDS: 0.9 % SODIUM CHLORIDE 1000 ml 1,000 ML 125 ML IV ×2 (12:43→19:25)
[2023-05-20] MEDS: LACTOBACILLUS ACIDOPHILUS 1 TABLET 1 TAB PO ×2 (12:44→17:39)
[2023-05-20] MEDS: ACETAMINOPHEN 325 MG TABLET 975 MG PO (15:15)
--- NOTE | 2023-05-20 16:12 | PC.SOCIAL ---
Discharge planning: Pt is already on service with [facility] for RN services. [facility] should be informed of her discharge date and any need for increased services. progress worker to follow up as needed.
--- NOTE | 2023-05-20 18:40 | PC.NURSE ---
End of shift-- Very pleasant and cooperative, alert and oriented patient was admitted to med-surg via cart. VSS and highest temp this shift 101.3F. MD was notified. SPO2 maintained >90% on RA while at rest, but noted to drop as low as 85% on RA. She denied any pain. LS CTA. Trace edema noted in bilateral LE. She denied nausea and tolerated a regular diet without difficulty. No BMs since admission. She was up to BR with SBA, but tolerated it only fair and become SOB, lightheaded and sats dropped as low as 85% while pt was up but she did recover quickly. Report to oncoming shift.
[2023-05-20] MEDS: QUETIAPINE 100 MG TABLET 300 MG PO (20:21)
[2023-05-20] MEDS: ATORVASTATIN CALCIUM 40 MG TABLET PO (20:21)
[2023-05-21] VITALS (12 sets, daily range): BP systolic 114–134; BP diastolic 43–73; PULSE 64–81; RESP 16–22; TEMP 36.3–37.6; O2SAT 94–95; BMI 37.5
[2023-05-21 03:21] LABS: CDIFFEPI 027 PRESUMPTIVE NEGATIVE (Negative)
[2023-05-21 03:23] LABS: C.Difficile POSITIVE (Negative)
[2023-05-21] MEDS: GABAPENTIN 300 MG CAPSULE PO (03:31)
[2023-05-21] MEDS: 0.9 % SODIUM CHLORIDE 1000 ml 1,000 ML 125 ML IV ×3 (03:31→19:30)
[2023-05-21] MEDS: LEVOTHYROXINE 25 MCG TABLET PO (05:51)
[2023-05-21] MEDS: LEVOTHYROXINE 112 MCG TABLET PO (05:51)
[2023-05-21 06:19] LABS: Basophils Percent Auto 0.7 % (0.0-3.0); Eosinophils Percent Auto 3.3 % (0.0-7.0); Hematocrit 24.6 % (33.0-51.0); Immature Granulocytes Pct Auto 0.7 %; Lymphocytes Percent Auto 30.5 % (20-44); Mean Corpuscular HGB Conc 32 gm/dL (32-36); Mean Corpuscular Hemoglobin 30 pg (26-34); Mean Corpuscular Volume 94 fL (80-100); Monocytes Percent Auto 23.2 % (0.0-11.0); Neutrophils Percent Auto 41.6 % (42.0-72.0); Platelet Count* 85 K/uL (140-440); RDW Coefficient of Variation % 14.6 % (11.5-15.5); Red Blood Count 2.61 m/uL (4.00-5.20)
[2023-05-21] MEDS: OMEPRAZOLE 20 MG CAPSULE DR PO (06:49)
[2023-05-21 06:55] LABS: Chloride* 112 mmol/L (96-114); Potassium* 3.9 mmol/L (3.6-5.1); Sodium* 136 mmol/L (135-149)
[2023-05-21 06:57] LABS: Est. Creatinine Clearance* 31.69; Estimated Glomerular Filt Rate 57 ml/min; White Blood Count* 1.51 K/uL (4.50-11.00)
[2023-05-21 06:58] LABS: Anion Gap 6 mEq/L (7-15); Blood Urea Nitrogen* 21 mg/dL (7-30); Calcium* 7.9 mg/dL (8.4-10.6); Carbon Dioxide* 18 mmol/L (20-32); Glucose* 152 mg/dL (60-115); Hemoglobin* 7.9 gm/dL (12.0-16.0)
[2023-05-21 06:59] LABS: Slide Review Acceptable Review (Acceptable); Slide Review Reflex Yes
--- NOTE | 2023-05-21 07:44 | PC.NURSE ---
Pt is alert and oriented x3. Afebrile. Pt reports 5/10 pain in feet it my neuropathy, it comes and goes, managed with PRN Gabapentin and repositioning. Pt is up A1 with walker and gait belt. Pt had 3 large copious loose stools, one was incontinent. Pt has port in right upper chest that is patent and CDI. Pt slept intermittently throughout night.
--- NOTE | 2023-05-21 07:59 | PM.IMPN1 ---
Progress Note: A&P Assessment and plan (1) Diarrhea: Problem details: - diverticulitis and colitis on CT, recent chemotherapy - C-Diff positive, oral Vancomycin initiated 05/21/23 - Ertapenem (05/20/23) Status: Acute (2) Bacteremia: Problem details: - gram + cocci in clusters on 1 blood cultures from 05/19 - urine culture growing >100K CFU gram negative rods - on IV Ertapenem (05/19), oral and IV Vanco (05/20) - TTE 05/20, consider port removal pending further resutls Status: Acute (3) Anemia: Problem details: - baseline Hgb 10, 7.9 on 05/21/23 - patient amenable to transfusion, 1U PRBCs ordered 05/20 Status: Acute (4) Acute dehydration: Problem details: - 2/2 diarrhea, continue IVFs and follow lytes/renal function - also has weakness, therapies ordered Status: Acute (5) Neutropenia: Problem details: - likely iatrogenic from chemotherapy - no tachycardia, Tmax 101.3 on 05/21/23, no hypotension Status: Acute (6) 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; dx fall of 2022, s/p lobectomy - Carboplatin and Paclitaxel chemo initiated 05/14/23 - follows with Oncology at [facility] Status: Acute (7) Atrial fibrillation: Problem details: - rate controlled, on Amiodarone - not anticoagulated at this time, was on Eliquis, stopped by GI given her anemia Status: Acute Plan - per above - continue IV abx, follow cultures, blood transfusion, TTE ordered - therapies following for weakness - Haroon updated at bedside, questions answered - called and left message for Dr. Ansari (primary Oncologist) at [facility], [place] ([phone]) Subjective Date Seen: 05/21/23 Interval history: Noelle is an 82 yo female on chemotherapy for lung cancer, admitted to the hospital yesterday for weakness and diarrhea. Overnight, she was found to have a + Blood culture (GPC in clusters), fever (Tmax 101.3 overnight), + C-diff. Exam Narrative: Exam Narrative: GEN: Alert and nontoxic, appears tired today HEENT: [place], EOMIs bilaterally, no scleral icterus CV: RRR, soft systolic murmur without concerning findings (unchanged from admission) R: LCTA bilaterally without concerning wheezing, air movement adequate Ab: soft, mild distention, mild discomfort in LLQ without rebound or guarding Skin: No concerning skin lesions or rashes on exposed skin Neuro: No focal deficits Psych: Appropriate Const: Vital Signs, click to edit/add: Vital Signs - 24 hr 05/20/23 08:26 05/20/23 08:30 05/20/23 08:31 Temperature Pulse Rate 144 H 73 74 Pulse Rate [Pulse Oximeter] Respiratory Rate Blood Pressure 103/48 L Blood Pressure [Ri ght Arm] Pulse Oximetry 87 L 98 96 Oxygen Delivery Me thod 05/20/23 08:32 05/20/23 09:00 05/20/23 09:01 Temperature Pulse Rate 75 76 77 Pulse Rate [Pulse Oximeter] Respiratory Rate Blood Pressure 101/27 L Blood Pressure [Ri ght Arm] Pulse Oximetry 97 97 95 Oxygen Delivery Me thod 05/20/23 09:02 05/20/23 09:31 05/20/23 09:32 Temperature Pulse Rate 75 75 76 Pulse Rate [Pulse Oximeter] Respiratory Rate Blood Pressure 82/34 L Blood Pressure [Ri ght Arm] Pulse Oximetry 98 96 97 Oxygen Delivery Me thod 05/20/23 09:41 05/20/23 09:44 05/20/23 09:44 Temperature Pulse Rate 77 78 78 Pulse Rate [Pulse Oximeter] Respiratory Rate Blood Pressure 101/28 L 136/57 L 136/57 L Blood Pressure [Ri ght Arm] Pulse Oximetry 96 98 98 Oxygen Delivery Me thod 05/20/23 10:00 05/20/23 10:01 05/20/23 10:30 Temperature Pulse Rate 80 77 80 Pulse Rate [Pulse Oximeter] Respiratory Rate Blood Pressure 120/55 L Blood Pressure [Ri ght Arm] Pulse Oximetry 99 98 99 Oxygen Delivery Me thod 05/20/23 10:31 05/20/23 11:21 05/20/23 11:21 Temperature 96.9 F L Pulse Rate 77 Pulse Rate [Pulse Oximeter] 81 Respiratory Rate 16 18 Blood Pressure 137/66 Blood Pressure [Ri ght Arm] 130/85 Pulse Oximetry 98 96 94 Oxygen Delivery Me thod Room Air Room Air 05/20/23 15:00 05/20/23 15:00 05/20/23 15:00 Temperature 101.3 F H Pulse Rate Pulse Rate [Pulse Oximeter] 73 73 Respiratory Rate 18 18 18 Blood Pressure Blood Pressure [Ri ght Arm] 146/59 H Pulse Oximetry 97 97 Oxygen Delivery Ia thod Room Air Room Air 05/20/23 17:09 05/20/23 17:16 05/20/23 19:29 Temperature 98.5 F 98.5 F 98.1 F Pulse Rate Pulse Rate [Pulse Oximeter] 74 Respiratory Rate 16 Blood Pressure Blood Pressure [Ri ght Arm] 130/55 L Pulse Oximetry 97 Oxygen Delivery Ia thod Room Air 05/20/23 23:45 05/20/23 23:45 05/20/23 23:45 Temperature 98.3 F Pulse Rate Pulse Rate [Pulse Oximeter] 83 Respiratory Rate 18 18 18 Blood Pressure Blood Pressure [Ri ght Arm] 120/43 L Pulse Oximetry 96 96 Oxygen Delivery Ia thod Room Air Room Air 05/21/23 03:25 Temperature 98.0 F Pulse Rate Pulse Rate [Pulse Oximeter] 79 Respiratory Rate 16 Blood Pressure Blood Pressure [Ri ght Arm] 114/73 Pulse Oximetry 95 Oxygen Delivery Ia thod Room Air Labs Labs: Laboratory Results - last 24 hr 05/20/23 05/20/23 05/20/23 08:09 08:18 12:15 WBC 0.48 L* RBC 3.34 L Hgb 9.9 L Hct 31.4 L MCV 94 MCH 30 MCHC 32 RDW Coeff of Aris 14.5 Plt Count 77 L Neut % (Auto) 22.9 L Lymph % (Auto) 52.1 H Becker % (Auto) 10.4 Eos % (Auto) 10.4 H Baso % (Auto) 2.1 Neut # (Auto) 0.10 L Lymph # (Auto) 0.30 L Becker # (Auto) 0.00 Eos # (Auto) 0.00 Baso # (Auto) 0.00 Abs Immat Gran (auto) 0.00 Imm/Tot Granulo (auto) 2.1 Diff Slide Review Acceptable Review Sodium 134 L Potassium 4.1 Chloride 108 Carbon Dioxide 17 L Anion Gap 9 BUN 35 H Creatinine 1.3 Estimated Creat Clear 24.38 Estimated GFR 41 Glucose 191 H Lactate 1.4 Calcium 8.5 Total Bilirubin 0.8 AST 24 ALT 26 Alkaline Phosphatase 80 Troponin I 0.04 Total Protein 6.0 Albumin 3.2 L TSH 6.210 H Urine Color Yellow Urine Appearance Cloudy A Urine pH 5.5 Ur Specific [place] 1.010 Urine Protein Trace A Urine Glucose (UA) Negative Urine Ketones Negative Urine Blood 3+ A Urine Nitrite Negative Urine Bilirubin Negative Urine Urobilinogen 1.0 Ur Leukocyte Esterase Trace A Urine RBC 5-10 A Urine WBC 2-5 Ur Squamous Epith Cells Few Other Sediment Few A Urine Bacteria Many A Fine Granular Casts Few A Urine Yeast Few A Stl C. diff Tox B Gene Stl C. diff -NAP1-BI Lab Acknowledgement Test Added 05/21/23 05/21/23 01:50 06:00 WBC 1.51 L* RBC 2.61 L Hgb 7.9 L* Hct 24.6 L MCV 94 MCH 30 MCHC 32 RDW Coeff of [place] 14.6 Plt Count 85 L Neut % (Auto) 41.6 L Lymph % (Auto) 30.5 Becker % (Auto) 23.2 H Eos % (Auto) 3.3 Baso % (Auto) 0.7 Neut # (Auto) 0.60 L Lymph # (Auto) 0.50 L Becker # (Auto) 0.40 Eos # (Auto) 0.00 Baso # (Auto) 0.00 Abs Immat Gran (auto) 0.00 Imm/Tot Granulo (auto) 0.7 Diff Slide Review Acceptable Review Sodium 136 Potassium 3.9 Chloride 112 Carbon Dioxide 18 L Anion Gap 6 L BUN 21 Creatinine 1.0 Estimated Creat Clear 31.69 Estimated GFR 57 Glucose 152 H Lactate 1.0 Calcium 7.9 L Total Bilirubin AST ALT Alkaline Phosphatase Troponin I Total Protein Albumin TSH Urine Color Urine Appearance Urine pH Ur Specific [place] Urine Protein Urine Glucose (UA) Urine Ketones Urine Blood Urine Nitrite Urine Bilirubin Urine Urobilinogen Ur Leukocyte Esterase Urine RBC Urine WBC Ur Squamous Epith Cells Other Sediment Urine Bacteria Fine Granular Casts Urine Yeast Stl C. diff Tox B Gene POSITIVE A* Stl C. diff [id number] PRESUMPTIVE NEGATIVE Lab Acknowledgement
[2023-05-21] MEDS: VANCOMYCIN 125 MG CAPSULE PO ×4 (08:42→20:18)
[2023-05-21 08:43] LABS: Lab Add On Test New Spec Needed
[2023-05-21] MEDS: allopurinoL 100 MG TABLET 200 MG PO (08:43)
[2023-05-21] MEDS: LACTOBACILLUS ACIDOPHILUS 1 TABLET 1 TAB PO ×3 (08:43→19:30)
[2023-05-21] MEDS: AMIODARONE 200 MG TABLET PO (08:43)
[2023-05-21] MEDS: VALSARTAN 80 MG TABLET 320 MG PO (08:43)
[2023-05-21] MEDS: ERTAPENEM 1 GM in 0.9 % SODIUM CHLORIDE Mini-bag 100 ML IVPB (11:28)
[2023-05-21] MEDS: FUROSEMIDE 10 MG/ML inj 20 MG IV (13:53)
[2023-05-21] MEDS: ACETAMINOPHEN 325 MG TABLET 975 MG PO (13:54)
--- NOTE | 2023-05-21 19:09 | PC.NURSE ---
Addendum entered by Amber Saeed RN 05/21/23 19:14: MRSA nasal swab taken and sent to lab Original Note: Nursing Care Hours: [id number] Pt this shift in bed fatigued but oriented. No c/o pain. VSS. Slightly clammy skin. One unit of PRB infused without issue. Pt stated feeling a lot better after a long nap and the blood transfusion. SB assist pivot to BSC. 2 loose stools. Lasix given so frequent u/o. Drank an Ensure clear and ordered dinner. Up in chair for meal. ECHO done today. Port patent and asymptomatic.
[2023-05-21] MEDS: ATORVASTATIN CALCIUM 40 MG TABLET PO (20:19)
[2023-05-21] MEDS: QUETIAPINE 100 MG TABLET 300 MG PO (20:19)
[2023-05-22] MEDS: 0.9 % SODIUM CHLORIDE 1000 ml 1,000 ML 125 ML IV ×3 (02:18→19:55)
[2023-05-22 02:21] VITALS: BP 121/47; PULSE 70; RESP 16; TEMP 36.6; O2SAT 95
--- NOTE | 2023-05-22 03:59 | PC.NURSE ---
Pt rested well this night. Afebrile. Pleasant and cooperative. No BMs. Up A1. Reporting Zero pain. States she is feeling much better than previous day.
[2023-05-22] MEDS: LEVOTHYROXINE 25 MCG TABLET PO (05:24)
[2023-05-22] MEDS: LEVOTHYROXINE 112 MCG TABLET PO (05:24)
[2023-05-22] MEDS: OMEPRAZOLE 20 MG CAPSULE DR PO (05:24)
[2023-05-22 06:21] LABS: Basophils Percent Auto 0.1 % (0.0-3.0); Eosinophils Percent Auto 1.2 % (0.0-7.0); Hematocrit 34.3 % (33.0-51.0); Hemoglobin* 10.9 gm/dL (12.0-16.0); Immature Granulocytes Pct Auto 9.1 %; Lymphocytes Percent Auto 10.3 % (20-44); Mean Corpuscular HGB Conc 32 gm/dL (32-36); Mean Corpuscular Hemoglobin 30 pg (26-34); Mean Corpuscular Volume 93 fL (80-100); Monocytes Percent Auto 20.3 % (0.0-11.0); Platelet Count* 115 K/uL (140-440); RDW Coefficient of Variation % 15.5 % (11.5-15.5); Red Blood Count 3.69 m/uL (4.00-5.20)
[2023-05-22 06:42] LABS: Lactate* 1.7 mmol/L (0.5-1.9)
[2023-05-22 07:11] LABS: Chloride* 115 mmol/L (96-114)
[2023-05-22 07:12] LABS: Albumin* 2.9 g/dL (3.3-5.0); Potassium* 3.7 mmol/L (3.6-5.1); Sodium* 140 mmol/L (135-149)
[2023-05-22 07:15] LABS: Alanine Aminotransferase* 21 U/L (4-35); Alkaline Phosphatase* 88 U/L (40-150); Anion Gap 10 mEq/L (7-15); Aspartate Amino Transferase* 23 U/L (12-35); Bilirubin Total* 0.3 mg/dL (0.1-1.5); Blood Urea Nitrogen* 16 mg/dL (7-30); Calcium* 8.2 mg/dL (8.4-10.6); Carbon Dioxide* 15 mmol/L (20-32); Creatinine* 1.3 mg/dL (0.5-1.5); Est. Creatinine Clearance* 24.38; Estimated Glomerular Filt Rate 41 ml/min; Glucose* 129 mg/dL (60-115); Total Protein* 5.9 g/dL (6.0-8.3)
[2023-05-22 07:50] VITALS: BP 112/44; PULSE 76; RESP 18; TEMP 36.6; O2SAT 95
[2023-05-22] MEDS: LACTOBACILLUS ACIDOPHILUS 1 TABLET 1 TAB PO ×3 (07:55→17:31)
[2023-05-22 08:02] LABS: Slide Review Reflex Yes
[2023-05-22] MEDS: VALSARTAN 80 MG TABLET 320 MG PO (08:40)
[2023-05-22] MEDS: VANCOMYCIN 125 MG CAPSULE PO ×4 (08:41→21:07)
[2023-05-22] MEDS: allopurinoL 100 MG TABLET 200 MG PO (08:41)
[2023-05-22] MEDS: AMIODARONE 200 MG TABLET PO (08:41)
--- NOTE | 2023-05-22 09:30 | P.IMPN_ITS ---
Progress Note: A&P Assessment and plan (1) Diarrhea: Problem details: - diverticulitis and colitis on CT, recent chemotherapy - C-Diff positive, oral Vancomycin (05/21/23) - Ertapenem (05/20/23) Status: Acute (2) Bacteremia: Problem details: - gram + cocci in clusters on 1/2 blood cultures from 05/19 - urine culture growing >100K CFU gram negative rods - on IV Ertapenem (05/19), oral and IV Vanco (05/20) - TTE reassuring 05/20 - consider port removal pending further ID from blood culture Status: Acute (3) Anemia: Problem details: - baseline Hgb 10, 7.9 on 05/21/23 - patient amenable to transfusion, 1U PRBCs ordered 05/20 and Hgb improved to 10.9 on 05/21 Status: Acute (4) Acute dehydration: Problem details: - 2/2 diarrhea, continue IVFs and follow lytes/renal function - resolved on 05/21/23 Status: Acute (5) Neutropenia: Problem details: - likely iatrogenic from chemotherapy - no tachycardia, Tmax 101.3 on 05/21/23, no hypotension - WBC normalized on 05/21 Status: Acute (6) 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; dx fall of 2022, s/p lobectomy - Carboplatin and Paclitaxel chemo initiated 05/14/23 - follows with Oncology at [facility] Status: Acute (7) Atrial fibrillation: Problem details: - rate controlled, on Amiodarone - not anticoagulated at this time, was on Eliquis, stopped by GI given her anemia Status: Acute Plan - per above - SCDs and Lovenox for ppx - reviewed case with Yvette ([facility] at [facility] Oncology clinic: [phone]), she will see patient upon hospital d/c Subjective Date Seen: 05/22/23 Interval history: Noelle is an 82 yo female who recently initiated chemotherapy for lung cancer and was admitted to the hospital on 05/20/23 for weakness and diarrhea. Initial imaging revealed diverticulitis and colitis; C-diff positive, has also had 1/2 initial blood cultures + GPC in clusters, GNR in urine culture. Currently on IV Ertapenem, IV and oral Vancomycin. Noelle remained afebrile with reassuring VS over the past 24 hours, diarrhea has slowed and abdominal cramping has improved. She is tolerating a regular diet and has no concerns for hospitalist team this morning. Exam Narrative: Exam Narrative: GEN: Alert and oriented, nontoxic, sitting comfortably in bed and eating breakfast HEENT: EOMIs bilaterally, no scleral icterus CV: RRR, soft systolic murmur without concerning features R: LCTA bilaterally without concerning wheezing, air movement adequate Ab: soft, less LLQ ttp today Skin: No concerning skin lesions or rashes on exposed skin Neuro: Nonfocal Psych: Appropriate Const: Vital Signs, click to edit/add: Vital Signs - 24 hr 05/21/23 10:46 05/21/23 13:54 05/21/23 14:02 Temperature 99.7 F H 98.3 F 98.3 F Pulse Rate 75 Pulse Rate [Pulse Oximeter] 76 Respiratory Rate 22 22 Blood Pressure 124/50 L Blood Pressure [Ri ght Arm] 125/54 L Pulse Oximetry 95 94 Oxygen Delivery Me thod Room Air 05/21/23 14:15 05/21/23 15:00 05/21/23 15:00 Temperature 97.9 F Pulse Rate 76 78 Pulse Rate [Pulse Oximeter] 76 Respiratory Rate 20 18 18 Blood Pressure 126/43 L 123/52 L Blood Pressure [Ri ght Arm] Pulse Oximetry 95 Oxygen Delivery Me thod 05/21/23 15:00 05/21/23 15:00 05/21/23 15:53 Temperature 97.9 F 98.3 F Pulse Rate Pulse Rate [Pulse Oximeter] 78 Respiratory Rate 18 18 Blood Pressure Blood Pressure [Ri ght Arm] 123/52 L Pulse Oximetry 94 95 Oxygen Delivery Me thod Room Air Room Air 05/21/23 15:53 05/21/23 19:32 05/21/23 22:35 Temperature 97.3 F L 97.8 F 97.9 F Pulse Rate Pulse Rate [Pulse Oximeter] 64 68 Respiratory Rate 16 16 Blood Pressure Blood Pressure [Ri ght Arm] 134/49 L 129/57 L Pulse Oximetry 95 95 Oxygen Delivery Me thod Room Air Room Air 05/21/23 22:56 05/21/23 22:57 05/22/23 02:21 Temperature 98 F Pulse Rate Pulse Rate [Pulse Oximeter] 68 70 Respiratory Rate 16 16 16 Blood Pressure Blood Pressure [Ri ght Arm] 121/47 L Pulse Oximetry 95 95 Oxygen Delivery Me thod Room Air Room Air 05/22/23 07:50 05/22/23 07:50 05/22/23 07:50 Temperature 97.9 F Pulse Rate Pulse Rate [Pulse Oximeter] 76 Respiratory Rate 18 18 18 Blood Pressure Blood Pressure [Ri ght Arm] 112/44 L Pulse Oximetry 95 95 Oxygen Delivery Me thod Room Air Room Air Labs Labs: Laboratory Results - last 24 hr 05/21/23 05/22/23 08:50 05:20 WBC 11.80 H RBC 3.69 L Hgb 10.9 L Hct 34.3 MCV 93 MCH 30 MCHC 32 RDW Coeff of Aris 15.5 Plt Count 115 L Neut % (Auto) 59.0 Lymph % (Auto) 10.3 L [place] % (Auto) 20.3 H Eos % (Auto) 1.2 Baso % (Auto) 0.1 Neut # (Auto) 7.00 Lymph # (Auto) 1.20 [place] # (Auto) 2.40 H Eos # (Auto) 0.10 Baso # (Auto) 0.00 Abs Immat Gran (auto) 1.10 H Imm/Tot Granulo (auto) 9.1 Sodium 140 Potassium 3.7 Chloride 115 H Carbon Dioxide 15 L Anion Gap 10 BUN 16 Creatinine 1.3 Estimated Creat Clear 24.38 Estimated GFR 41 Glucose 129 H Lactate 1.7 Calcium 8.2 L Total Bilirubin 0.3 AST 23 ALT 21 Alkaline Phosphatase 88 Total Protein 5.9 L Albumin 2.9 L Blood Type O Positive Antibody Screen NEGATIVE Crossmatch (AHG) See Detail
[2023-05-22 09:32] LABS: Slide Review Acceptable Review (Acceptable)
[2023-05-22] MEDS: NYSTATIN CREAM 30 GM 1 APPLIC TOPICAL ×3 (09:45→21:08)
[2023-05-22] MEDS: ERTAPENEM 1 GM in 0.9 % SODIUM CHLORIDE Mini-bag 100 ML IVPB (11:07)
[2023-05-22 11:09] VITALS: BP 113/31; PULSE 74; RESP 20; TEMP 37.2; O2SAT 95
[2023-05-22 15:32] VITALS: BP 129/53; PULSE 79; RESP 18; TEMP 36.6; O2SAT 95
--- NOTE | 2023-05-22 15:53 | PC.SOCIAL ---
Addendum entered by HAKAN Escoto 05/22/23 16:02: Discharge planning: film processing utility worker did talk with pt about [facility], if the pt decides she wants to go to a facility for short-term rehab. However, pt's first choice would be to go back home with increased Home Care services including PT/OT. Social work to follow-up as needed. Original Note: Discharge planning: film processing utility worker met with pt today to discuss discharge planning. Pt stated that she would really like to go home with increased services with [facility], but needed to talk more with her family about it. Pt stated that she is also thinking of stopping her chemotherapy treatment due to the side affects, but wanted to talk with the doctor more and her family. Social work to follow-up as needed.
--- NOTE | 2023-05-22 18:52 | PC.NURSE ---
End of Shift: Patient pleasant and cooperative. Patient vitally stable, lungs clear, BS WNL, IV running NS at 125. Patient SBA/walker. Patient has had 2 loose BMS, continent and incontinent, and urinating. Patient denies pain. Patient up to recliner for dinner, otherwise patient has been napping on and off all day.
[2023-05-22 19:00] VITALS: BP 149/63; PULSE 75; RESP 18; TEMP 36.6; O2SAT 97
[2023-05-22] MEDS: ATORVASTATIN CALCIUM 40 MG TABLET PO (21:07)
[2023-05-22] MEDS: QUETIAPINE 100 MG TABLET 300 MG PO (21:07)
[2023-05-22] MEDS: ENOXAPARIN 30 MG/0.3ML INJ SUBCUT (21:08)
[2023-05-22 23:00] VITALS: BP 156/66; PULSE 75; RESP 18; TEMP 36.6; O2SAT 95
[2023-05-23] VITALS (9 sets, daily range): BP systolic 132–154; BP diastolic 43–74; PULSE 71–78; RESP 16–18; TEMP 36.4–36.9; O2SAT 96–99
[2023-05-23] MEDS: 0.9 % SODIUM CHLORIDE 1000 ml 1,000 ML 125 ML IV (03:13)
[2023-05-23 06:28] LABS: Basophils Percent Auto 0.1 % (0.0-3.0); Eosinophils Percent Auto 0.8 % (0.0-7.0); Hematocrit 31.3 % (33.0-51.0); Hemoglobin* 10.1 gm/dL (12.0-16.0); Immature Granulocytes Pct Auto 14.7 %; Lymphocytes Percent Auto 5.8 % (20-44); Mean Corpuscular HGB Conc 32 gm/dL (32-36); Mean Corpuscular Hemoglobin 30 pg (26-34); Mean Corpuscular Volume 93 fL (80-100); Monocytes Percent Auto 14.6 % (0.0-11.0); Platelet Count* 119 K/uL (140-440); RDW Coefficient of Variation % 15.3 % (11.5-15.5); Red Blood Count 3.36 m/uL (4.00-5.20); White Blood Count* 22.57 K/uL (4.50-11.00)
[2023-05-23 06:43] LABS: Slide Review Acceptable Review (Acceptable); Slide Review Reflex Yes
[2023-05-23] MEDS: LEVOTHYROXINE 25 MCG TABLET PO (06:47)
[2023-05-23] MEDS: OMEPRAZOLE 20 MG CAPSULE DR PO (06:47)
[2023-05-23] MEDS: LEVOTHYROXINE 112 MCG TABLET PO (06:48)
[2023-05-23 06:49] LABS: Albumin* 2.7 g/dL (3.3-5.0); Chloride* 118 mmol/L (96-114); Potassium* 3.1 mmol/L (3.6-5.1); Sodium* 141 mmol/L (135-149)
[2023-05-23 06:51] LABS: Anion Gap 6 mEq/L (7-15); Bilirubin Total* 0.1 mg/dL (0.1-1.5); Carbon Dioxide* 17 mmol/L (20-32); Creatinine* 1.2 mg/dL (0.5-1.5); Est. Creatinine Clearance* 26.41; Estimated Glomerular Filt Rate 45 ml/min
[2023-05-23 06:52] LABS: Alanine Aminotransferase* 16 U/L (4-35); Alkaline Phosphatase* 115 U/L (40-150); Aspartate Amino Transferase* 21 U/L (12-35); Blood Urea Nitrogen* 13 mg/dL (7-30); Calcium* 8.3 mg/dL (8.4-10.6); Glucose* 146 mg/dL (60-115); Total Protein* 5.3 g/dL (6.0-8.3)
--- NOTE | 2023-05-23 06:54 | PC.NURSE ---
Shift note: Pt is doing well with A1, walker and GB. Pt had 3x loose stool tonight. A/O. No fever recorded.
[2023-05-23 08:24] LABS: Magnesium* 1.8 mg/dL (1.5-2.6)
[2023-05-23] MEDS: POTASSIUM BICARB 25 MEQ EFFERVESCENT TAB PO ×3 (08:28→11:28)
[2023-05-23] MEDS: LACTOBACILLUS ACIDOPHILUS 1 TABLET 1 TAB PO ×3 (08:28→18:25)
[2023-05-23] MEDS: VANCOMYCIN 125 MG CAPSULE PO ×3 (09:31→22:34)
[2023-05-23] MEDS: allopurinoL 100 MG TABLET 200 MG PO (09:31)
[2023-05-23] MEDS: AMIODARONE 200 MG TABLET PO (09:31)
[2023-05-23] MEDS: NYSTATIN CREAM 30 GM 1 APPLIC TOPICAL ×3 (09:32→22:39)
--- NOTE | 2023-05-23 09:32 | P.IMPN_ITS ---
Progress Note: A&P Assessment and plan (1) Diarrhea: Problem details: - diverticulitis and colitis on CT, recent chemotherapy - C-Diff positive, oral Vancomycin (05/21/23), will need 10 day course - Ertapenem (05/20/23), transitioned to oral Doxycycline (05/22) for diverticulitis after discussion with ID, continue Doxycycline until 05/25/23 Status: Acute (2) Bacteremia: Problem details: - gram + cocci in clusters on 03/19 blood cultures from 05/19, resulted as staph epi (+ blood culture was from peripheral site, NOT port), follow up cultures negative - + EColi on urine culture, s/p treatment with 3 days of IV Ertapenem - was on IV Ertapenem (05/19) and IV Vanco (05/20), both discontinued on 05/22 after discussion with ID (Dr. Ansari) given likelihood of Staph Epi as contaminant - TTE reassuring 05/20 Status: Acute (3) Anemia: Problem details: - baseline Hgb 10, down to 7.9 on 05/21/23 - transfused 1U PRBCs on 05/20 and Hgb improved to 10.9 on 05/21 Status: Acute (4) Acute dehydration: Problem details: - 2/2 diarrhea, continue IVFs and follow lytes/renal function, correct as needed - improving during stay as diarrhea improves Status: Acute (5) Neutropenia: Problem details: - likely iatrogenic from chemotherapy, but 05/23/23 had increased to 22K (presumably 2/2 C-Diff) - no tachycardia, Tmax 101.3 on 05/21/23, no systolic hypotension Status: Acute (6) 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 Ansari) at [facility], evaluating goals of care given illness s/p chemo Status: Acute (7) Atrial fibrillation: Problem details: - rate controlled, on Amiodarone - not anticoagulated at this time, was on Eliquis, stopped by GI given her anemia Status: Acute Plan - per above - reviewed case with Dr. Ansari of ID (details above) - continue electrolyte supplementation and therapies, likely home with and Home Health tomorrow Subjective Date Seen: 05/23/23 Interval history: Noelle is an 82 yo female who initiated chemotherapy for lung cancer on 05/14, admitted to the hospital on 05/20/23 for weakness and diarrhea. Initial imaging revealed diverticulitis and colitis; C-diff positive on admission (treating with oral Vancomycin). 1/2 blood cultures drawn on admission + for GPC in clusters (this morning, formally identified as Staph epidermidis), repeat blood cultures remain negative. IV Ertapenem and IV Vanco initiated upon admission, given results today, reviewed plan of care with ID. Yesterday afternoon, patient had some dizziness with therapies and her Losartan was held. Today, she is feeling better and had no concerning symptoms during PT/OT. Her diarrhea remains nonbloody and manageable (1-2 episodes/day) and today she notes no abdominal pain. She is tolerating potassium replacement. Exam Narrative: Exam Narrative: GEN: Alert and oriented, nontoxic and sitting comfortably in bedside chair HEENT: EOMIs bilaterally, no scleral icterus CV: RRR, No concerning murmurs R: LCTA bilaterally without concerning wheezing, air movement adequate Ext: wwp, no concerning edema Skin: No concerning skin lesions or rashes on exposed skin Neuro: Nonfocal Psych: Appropriate Const: Vital Signs, click to edit/add: Vital Signs - 24 hr 05/22/23 11:09 05/22/23 15:32 05/22/23 15:32 Temperature 98.9 F 97.9 F Pulse Rate [Pulse Oximeter] 74 79 79 Respiratory Rate 20 18 18 Blood Pressure [Le ft Arm] 129/53 L Blood Pressure [Ri ght Arm] 113/31 L Pulse Oximetry 95 95 Oxygen Delivery Me thod Room Air Room Air 05/22/23 15:32 05/22/23 19:00 05/22/23 23:00 Temperature 97.9 F Pulse Rate [Pulse Oximeter] 75 75 Respiratory Rate 18 18 Blood Pressure [Le ft Arm] 149/63 H Blood Pressure [Ri ght Arm] Pulse Oximetry 95 97 Oxygen Delivery Me thod Room Air Room Air 05/22/23 23:00 05/22/23 23:00 05/23/23 03:00 Temperature 97.9 F 97.5 F L Pulse Rate [Pulse Oximeter] 75 72 Respiratory Rate 18 18 18 Blood Pressure [Le ft Arm] 156/66 H 150/64 H Blood Pressure [Ri ght Arm] Pulse Oximetry 95 95 96 Oxygen Delivery Me thod Room Air Room Air Room Air Labs Labs: Laboratory Results - last 24 hr 05/22/23 05/23/23 05/23/23 05:20 06:15 07:49 WBC 22.57 H RBC 3.36 L Hgb 10.1 L Hct 31.3 L MCV 93 MCH 30 MCHC 32 RDW Coeff of Aris 15.3 Plt Count 119 L Neut % (Auto) 64.0 Lymph % (Auto) 5.8 L [place] % (Auto) 14.6 H Eos % (Auto) 0.8 Baso % (Auto) 0.1 Neut # (Auto) 14.40 H Lymph # (Auto) 1.30 [place] # (Auto) 3.30 H Eos # (Auto) 0.20 Baso # (Auto) 0.00 Abs Immat Gran (auto) 3.30 H Imm/Tot Granulo (auto) 14.7 Diff Slide Review Acceptable Review Acceptable Review Sodium 141 Potassium 3.1 L Chloride 118 H Carbon Dioxide 17 L Anion Gap 6 L BUN 13 Creatinine 1.2 Estimated Creat Clear 26.41 Estimated GFR 45 Glucose 146 H Calcium 8.3 L Magnesium 1.8 Total Bilirubin 0.1 AST 21 ALT 16 Alkaline Phosphatase 115 Total Protein 5.3 L Albumin 2.7 L Lab Acknowledgement Test Added
[2023-05-23] MEDS: HEPARIN 500 UNIT/5 ML SYRINGE IVF (11:29)
[2023-05-23] MEDS: SODIUM CHLORIDE 0.9 % (FLUSH) 10 ML SYRINGE 5 ML IVF (11:29)
--- NOTE | 2023-05-23 15:54 | PC.SOCIAL ---
Discharge planning: leather worker met with pt and her to discuss discharge planning. Pt is feeling much stronger today and the plan is for her to go home tomorrow with increased Home Care Services, including PT/OT/BOLT THREADER with [facility]. leather worker updated Angela with [facility] Intake Services. Pt's [facility] nurse, aSmina, will plan to stop at the pt's home tomorrow after she returns home to check on her. [facility] will need a resumption of care order in the pt's D/C Summary. Social work to follow-up as needed.
--- NOTE | 2023-05-23 19:56 | PC.NURSE ---
shift note: rt port SL per protocol. No resistance with flush. blood return with flush. site intact w/o redness. Pt alerted leader writer that she was eating lunch this afternoon and had 20 min period of feeling Heart race. Pt stated she had sob with this episode. pt denied c.p or pressure. vss 167/71 Hr regular upon auscultation 78/min. Dr. Sher notified and orders to do EKG and place pt on tele monitor for 24 hrs.
[2023-05-23] MEDS: ATORVASTATIN CALCIUM 40 MG TABLET PO (22:33)
[2023-05-23] MEDS: DOXYCYCLINE HYCLATE 100 MG PO (22:33)
[2023-05-23] MEDS: QUETIAPINE 100 MG TABLET 300 MG PO (22:34)
[2023-05-23] MEDS: ENOXAPARIN 30 MG/0.3ML INJ SUBCUT (22:36)
[2023-05-24] VITALS (8 sets, daily range): BP systolic 141–167; BP diastolic 64–88; PULSE 70–80; RESP 16–20; TEMP 36.3–36.7; O2SAT 93–100
[2023-05-24] MEDS: LEVOTHYROXINE 25 MCG TABLET PO (06:14)
[2023-05-24] MEDS: LEVOTHYROXINE 112 MCG TABLET PO (06:14)
[2023-05-24 06:15] LABS: Basophils Percent Auto 0.2 % (0.0-3.0); Eosinophils Percent Auto 0.7 % (0.0-7.0); Hematocrit 30.3 % (33.0-51.0); Hemoglobin* 9.3 gm/dL (12.0-16.0); Immature Granulocytes Pct Auto 12.5 %; Lymphocytes Percent Auto 8.6 % (20-44); Mean Corpuscular HGB Conc 31 gm/dL (32-36); Mean Corpuscular Hemoglobin 29 pg (26-34); Mean Corpuscular Volume 96 fL (80-100); Monocytes Percent Auto 13.9 % (0.0-11.0); Neutrophils Percent Auto 64.1 % (42.0-72.0); Platelet Count* 112 K/uL (140-440); RDW Coefficient of Variation % 15.3 % (11.5-15.5); Red Blood Count 3.17 m/uL (4.00-5.20); White Blood Count* 23.62 K/uL (4.50-11.00)
[2023-05-24] MEDS: HEPARIN 500 UNIT/5 ML SYRINGE IVF ×3 (06:15→21:49)
[2023-05-24 06:16] LABS: Slide Review Reflex No
[2023-05-24] MEDS: OMEPRAZOLE 20 MG CAPSULE DR PO (06:17)
--- NOTE | 2023-05-24 06:30 | PC.NURSE ---
Patient pleasant, alert and oriented. Ambulates with walker, gait belt and stand by assist. No reports of heart racing or other cardiac symptoms.?Port accessed for lab draw, then heparin locked. Three small incontinent BMs overnight. Denied pain. ?
[2023-05-24 06:38] LABS: Albumin* 2.5 g/dL (3.3-5.0); Chloride* 116 mmol/L (96-114)
[2023-05-24 06:39] LABS: Potassium* 3.5 mmol/L (3.6-5.1); Sodium* 140 mmol/L (135-149)
[2023-05-24 06:41] LABS: Anion Gap 5 mEq/L (7-15); Aspartate Amino Transferase* 23 U/L (12-35); Bilirubin Total* 0.2 mg/dL (0.1-1.5); Carbon Dioxide* 19 mmol/L (20-32); Creatinine* 1.1 mg/dL (0.5-1.5); Est. Creatinine Clearance* 28.81; Estimated Glomerular Filt Rate 50 ml/min
[2023-05-24 06:42] LABS: Alanine Aminotransferase* 13 U/L (4-35); Alkaline Phosphatase* 115 U/L (40-150); Blood Urea Nitrogen* 10 mg/dL (7-30); Calcium* 8.4 mg/dL (8.4-10.6); Glucose* 125 mg/dL (60-115); Total Protein* 5.1 g/dL (6.0-8.3)
[2023-05-24] MEDS: POTASSIUM BICARB 25 MEQ EFFERVESCENT TAB PO ×2 (08:49→12:59)
[2023-05-24] MEDS: allopurinoL 100 MG TABLET 200 MG PO (08:49)
[2023-05-24] MEDS: AMIODARONE 200 MG TABLET PO (08:50)
[2023-05-24] MEDS: DOXYCYCLINE HYCLATE 100 MG PO ×2 (08:50→21:28)
[2023-05-24] MEDS: LACTOBACILLUS ACIDOPHILUS 1 TABLET 1 TAB PO ×2 (08:50→17:52)
[2023-05-24] MEDS: NYSTATIN CREAM 30 GM 1 APPLIC TOPICAL ×2 (08:50→21:28)
[2023-05-24] MEDS: SODIUM CHLORIDE 0.9 % (FLUSH) 10 ML SYRINGE 5 ML IVF ×2 (08:50→21:28)
--- NOTE | 2023-05-24 08:59 | PM.DS1 ---
DS: Providers Provider Date Seen: 05/24/23 Date of admission: 05/20/23 11:22 Primary care physician: Andrew Rodríguez MD Admitting Clinician: Reece Hoang MD Consults: ID, OT, PT, SW Attending Physician on discharge: Lizet Noguera MD Date of Discharge: 05/24/23 DS: Diagnosis Discharge Diagnosis (1) Diarrhea: Status: Acute Problem details: - diverticulitis and colitis on CT, recent chemotherapy - C-Diff positive, oral Vancomycin (05/21/23), will send home with Rx to complete full 10 day course - Ertapenem (05/20/23), transitioned to oral Doxycycline (05/22) for diverticulitis after discussion with ID, completed 5 day course of abx for diverticulitis upon d/c - significant improvement during stay (2) Colitis: Status: Acute Problem details: - C Diff + (3) Bacteremia: Status: Acute Problem details: - Staph epidermidis grew out of 1/2 blood cultures from admission on 05/19 (+ blood culture was from peripheral site, NOT port), follow up cultures negative - + EColi on urine culture, s/p treatment with 3 days of IV Ertapenem - initially treated with IV Ertapenem (05/19) and IV Vanco (05/20), both discontinued on 05/22 after discussion with ID (Dr. Ansari) given likelihood of Staph Epi as contaminant - TTE reassuring 05/20 (4) Anemia: Status: Acute Problem details: - baseline Hgb 10, down to 7.9 on 05/21/23 - transfused 1U PRBCs on 05/20 with improvement of Hgb to baseline of >10 (9.3 on day of discharge) (5) Acute dehydration: Status: Acute Problem details: - 2/2 diarrhea, continue IVFs and follow lytes/renal function, correct as needed - resolved during stay (6) Adenocarcinoma of left lung: Status: Acute Problem details: - non small cell; dx fall of 2022, s/p lobectomy - Carboplatin and Paclitaxel chemo initiated 05/14/23 - follows with Oncology (Dr. Ansari) at [facility], evaluating goals of care given illness s/p chemo (7) Atrial fibrillation: Status: Acute Problem details: - rate controlled, on Amiodarone - not anticoagulated at this time, was on Eliquis, stopped by GI given her anemia (8) Primary hypertension: Status: Acute Problem details: - BP lower during stay DS: Summary Time Spent with Patient Time attestation: Total time spent providing and/or coordinating discharge services: Exam Const: Vital Signs, click to edit/add: Vital Signs - 24 hr 05/23/23 09:43 05/23/23 12:45 05/23/23 15:00 Temperature 98 F 97.6 F Pulse Rate 78 Pulse Rate [Pulse Oximeter] 78 78 Respiratory Rate 18 18 Blood Pressure [Le ft Arm] 132/43 L 135/52 L Blood Pressure [Ri ght Arm] Pulse Oximetry 98 99 Oxygen Delivery Me thod Room Air Room Air 05/23/23 15:00 05/23/23 15:00 05/23/23 18:26 Temperature 97.5 F L Pulse Rate Pulse Rate [Pulse Oximeter] 78 78 Respiratory Rate 18 18 18 Blood Pressure [Le ft Arm] 154/74 H Blood Pressure [Ri ght Arm] Pulse Oximetry 99 99 Oxygen Delivery Sd thod Room Air Room Air 05/23/23 19:00 05/23/23 22:40 05/23/23 23:00 Temperature 98.4 F 98.3 F Pulse Rate Pulse Rate [Pulse Oximeter] 71 74 Respiratory Rate 17 16 16 Blood Pressure [Le ft Arm] 138/54 L 148/57 H Blood Pressure [Ri ght Arm] Pulse Oximetry 98 96 96 Oxygen Delivery Me thod Room Air Room Air Room Air 05/23/23 23:00 05/24/23 03:00 05/24/23 07:00 Temperature 97.5 F L Pulse Rate 71 Pulse Rate [Pulse Oximeter] 80 Respiratory Rate 17 18 Blood Pressure [Le ft Arm] Blood Pressure [Ri ght Arm] 141/64 H Pulse Oximetry 95 94 Oxygen Delivery Me thod Room Air Room Air 05/24/23 07:00 Temperature Pulse Rate Pulse Rate [Pulse Oximeter] 80 Respiratory Rate 18 Blood Pressure [Le ft Arm] Blood Pressure [Ri ght Arm] 164/67 H Pulse Oximetry 94 Oxygen Delivery Me thod Room Air DS: Data Data Completed and Pending Completed studies during hospitalization: Procedures Inspection of Upper Intestinal Tract, Via Natural or Artificial Opening Endoscopic (04/08/22) Transfusion of Nonautologous Red Blood Cells into Peripheral Vein, Percutaneous Approach (04/08/22) Labs on day of discharge: Labs from last 24 hours 05/24/23 06:00 WBC 23.62 H RBC 3.17 L Hgb 9.3 L Hct 30.3 L MCV 96 MCH 29 MCHC 31 L RDW Coeff of Aris 15.3 Plt Count 112 L Neut % (Auto) 64.1 Lymph % (Auto) 8.6 L [place] % (Auto) 13.9 H Eos % (Auto) 0.7 Baso % (Auto) 0.2 Neut # (Auto) 15.10 H Lymph # (Auto) 2.00 [place] # (Auto) 3.30 H Eos # (Auto) 0.20 Baso # (Auto) 0.00 Abs Immat Gran (auto) 3.00 H Imm/Tot Granulo (auto) 12.5 Sodium 140 Potassium 3.5 L Chloride 116 H Carbon Dioxide 19 L Anion Gap 5 L BUN 10 Creatinine 1.1 Estimated Creat Clear 28.81 Estimated GFR 50 Glucose 125 H Calcium 8.4 Total Bilirubin 0.2 AST 23 ALT 13 Alkaline Phosphatase 115 Total Protein 5.1 L Albumin 2.5 L Preliminary micro results at discharge 05/23/23 06:15 Blood Culture - Preliminary Blood NO GROWTH AFTER 24 HOURS 05/22/23 05:20 Blood Culture - Preliminary Blood NO GROWTH AFTER 48 HOURS 05/20/23 10:43 Blood Culture - Preliminary Blood NO GROWTH AFTER 72 HOURS 05/21/23 01:50 Stool Culture - Preliminary Stool Discharge Plan Discharge Disposition: Home, Self-Care Date of Admission: 05/20/23 11:22 Attending Provider on Discharge: Lizet Noguera Consulting Providers: Samina Quiroz; Luli Cardona; Mckenzie Kumar; Cal River; Young Ansari; Danica Jewell; Hazel Durham; Tea Gonzales Primary Care Provider: Andrew Rodríguez Condition: Improved Anticipated Discharge Date/Time: 05/24/23 08:18 Discharge Medications: New vancomycin 125 mg Capsule 125 mg PO QID 6 Days Qty: 24 0RF Continued quetiapine 300 mg tablet 300 mg PO HS dexamethasone 4 mg tablet 8 mg PO DAILY PRN Rx Instructions: DAYS 2, 3, 4 OF CYCLE 1-4 amlodipine 5 mg tablet 5 mg PO DAILY loratadine [Claritin] 10 mg tablet 10 mg PO DAILY lidocaine-prilocaine 2.5-2.5 % cream 5 g topical DAILY PRN Rx Instructions: PRIOR TO PORT ACCESS prochlorperazine maleate 5 mg tablet 5 mg PO Q6H PRN (Reason: nausea/vomiting) ondansetron HCl 8 mg tablet 8 mg PO Q8H PRN (Reason: nausea/vomiting) gabapentin 300 mg capsule 300 mg PO HS PRN Systane Complete 0.6 % drops 1 drp ophthalmic (eye) QID PRN (Reason: dry eyes) allopurinol 100 mg tablet 200 mg PO DAILY Qty: 60 0RF omeprazole 20 mg capsule,delayed release(DR/EC) 20 mg PO DAILY Qty: 90 3RF amiodarone 200 mg tablet 200 mg PO DAILY Qty: 30 1RF levothyroxine 137 mcg tablet 137 mcg PO DAILY Qty: 30 7RF Saccharomyces boulardii 250 mg capsule 250 mg PO BID Qty: 60 12RF atorvastatin 40 mg tablet 40 mg PO HS Qty: 90 1RF Discontinued valsartan 320 mg tablet 320 mg PO DAILY Discharge Orders: Discharge Order (Routine); Ordered 05/24/23 Ordered By: Lizet Noguera Additional Instructions: STOP your Valsartan upon discharge, we've been holding it here since your blood pressure was on the low side during your stay. Continue Vancomycin four times/day for your C-Diff infection (this was sent to [facility]), continue your probiotic once/day as well. Work on eating a banana once/day for your potassium, other good foods to eat while you're recovering: white rice, potatoes, nondairy yogurt, peanut butter. See Dr. Ansari's team to discuss goals of care and what would be best for YOUR quality of life. Restart Home Health today: we will also add home health PT, OT, and aide. Activity Level: Activity as Tolerated Discharge Diet: Regular Diet Detail: low fiber Follow Up Appointments: Andrew Rodríguez MD [Primary Care Provider] - (as needed ) Claudette Ansari MD [Referring] - (Please make appt with Dr. Ansari or Liset (her nurse practitioner) at [facility] in [place] (phone number [phone]) early next week to discuss hospital stay and goals of care) Forms: MyHealth Info Instructions Discharge Comments: resume HH care with nursing, add PT/OT/Home health aide
[2023-05-24] MEDS: VANCOMYCIN 125 MG CAPSULE PO ×4 (09:00→21:28)
--- NOTE | 2023-05-24 09:36 | PM.IMPN1 ---
Progress Note: A&P Assessment and plan (1) Bacteremia: Problem details: - Staph epidermidis grew out of 1/2 blood cultures from admission on 05/19 (+ blood culture was from peripheral site, NOT port), no growth on 2nd culture or cx from 05/21 - treated with IV Ertapenem (05/19-05/22) and IV Vanco (05/20-05/22) - TTE reassuring 05/20 - + blood culture from 05/22 (drawn from port) - Reviewed with Dr. Ansari of ID on 05/22 and 05/23: given 2nd positive blood culture, patient will need to remain in hospital for formal bacterial identification. In the meantime, PLAN: Continue oral Vancomycin and oral Doxycycline, add back IV Vancomycin (05/23). If bacteria from 05/22 culture is identified as the same Staph epi, then port will need to be removed and patient will need to prove clearance of bacteremia and complete 7 more days of antibiotic therapy. If culture grows out a different coagulase negative staph (contaminant) and patient remains stable, port can remain in place with close f/u Status: Acute (2) Diarrhea: Problem details: - diverticulitis and colitis on CT, recent chemotherapy - C-Diff positive, oral Vancomycin (05/21/23), will send home with Rx to complete full 10 day course - Ertapenem (05/20/23), transitioned to oral Doxycycline (05/22) for diverticulitis after discussion with ID, completed 5 day course of abx for diverticulitis upon d/c - improving daily Status: Acute (3) Colitis: Problem details: - C Diff +, on oral Vanco and clinically improving Status: Acute (4) Urine culture positive: Problem details: - + EColi, asymptomatic - s/p 3 days of IV Ertapenem Status: Acute (5) Anemia: Problem details: - baseline Hgb 10, down to 7.9 on 05/21/23 - transfused 1U PRBCs on 05/20 with improvement of Hgb to baseline of 9-10 Status: Acute (6) Acute dehydration: Problem details: - 2/2 diarrhea, continue IVFs and follow lytes/renal function, correct as needed - resolved during stay Status: Acute (7) 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 Ansari) at [facility], evaluating goals of care given illness s/p chemo Status: Acute (8) Atrial fibrillation: Problem details: - rate controlled, on Amiodarone - not anticoagulated at this time, was on Eliquis, stopped by GI given her anemia Status: Acute (9) Primary hypertension: Problem details: - BP has been lower during stay with intermittent orthostasis, Valsartan was discontinued on 05/21 and blood pressures are at age appropriate goal Status: Acute Plan - per above - Haroon updated at bedside, questions answered Subjective Date Seen: 05/24/23 Interval history: Noelle is an 82 yo female who initiated chemotherapy for lung cancer on 05/14, admitted to the hospital on 05/20/23 for weakness and diarrhea. Initial imaging revealed diverticulitis and colitis; C-diff positive on admission (treating with oral Vancomycin). 1/2 blood cultures drawn on admission + for GPC in clusters (this morning, formally identified as Staph epidermidis), repeat blood cultures remain negative. Noelle was ready for discharge home today; unfortunately the blood culture drawn from her port yesterday has resulted as GPC in clusters. She is disappointed but understands she isn't able to discharge home yet. Plan of care updated below. Exam Narrative: Exam Narrative: GEN: Alert and oriented, sitting comfortably in bedside chair HEENT: + alopecia, EOMIs bilaterally, no scleral icterus CV: RRR, soft systolic murmur heard best at right sternal border without concerning features R: LCTA bilaterally without concerning wheezing, air movement adequate Ab: Soft, nontender, hyperactive bowel sounds Ext: wwp, no concerning edema Skin: No concerning skin lesions or rashes on exposed skin Neuro: Nonfocal Psych: Appropriate Const: Vital Signs, click to edit/add: Vital Signs - 24 hr 05/23/23 09:43 05/23/23 12:45 05/23/23 15:00 Temperature 98 F 97.6 F Pulse Rate 78 Pulse Rate [Pulse Oximeter] 78 78 Respiratory Rate 18 18 Blood Pressure [Le ft Arm] 132/43 L 135/52 L Blood Pressure [Ri ght Arm] Pulse Oximetry 98 99 Oxygen Delivery Me thod Room Air Room Air 05/23/23 15:00 05/23/23 15:00 05/23/23 18:26 Temperature 97.5 F L Pulse Rate Pulse Rate [Pulse Oximeter] 78 78 Respiratory Rate 18 18 18 Blood Pressure [Le ft Arm] 154/74 H Blood Pressure [Ri ght Arm] Pulse Oximetry 99 99 Oxygen Delivery Nm thod Room Air Room Air 05/23/23 19:00 05/23/23 22:40 05/23/23 23:00 Temperature 98.4 F 98.3 F Pulse Rate Pulse Rate [Pulse Oximeter] 71 74 Respiratory Rate 17 16 16 Blood Pressure [Le ft Arm] 138/54 L 148/57 H Blood Pressure [Ri ght Arm] Pulse Oximetry 98 96 96 Oxygen Delivery Nm thod Room Air Room Air Room Air 05/23/23 23:00 05/24/23 03:00 05/24/23 07:00 Temperature 97.5 F L Pulse Rate 71 Pulse Rate [Pulse Oximeter] 80 Respiratory Rate 17 18 Blood Pressure [Le ft Arm] Blood Pressure [Ri ght Arm] 141/64 H Pulse Oximetry 95 94 Oxygen Delivery Nm thod Room Air Room Air 05/24/23 07:00 Temperature Pulse Rate Pulse Rate [Pulse Oximeter] 80 Respiratory Rate 18 Blood Pressure [Le ft Arm] Blood Pressure [Ri ght Arm] 164/67 H Pulse Oximetry 94 Oxygen Delivery Me thod Room Air Labs Labs: Laboratory Results - last 24 hr 05/24/23 06:00 WBC 23.62 H RBC 3.17 L Hgb 9.3 L Hct 30.3 L MCV 96 MCH 29 MCHC 31 L RDW Coeff of Aris 15.3 Plt Count 112 L Neut % (Auto) 64.1 Lymph % (Auto) 8.6 L [place] % (Auto) 13.9 H Eos % (Auto) 0.7 Baso % (Auto) 0.2 Neut # (Auto) 15.10 H Lymph # (Auto) 2.00 [place] # (Auto) 3.30 H Eos # (Auto) 0.20 Baso # (Auto) 0.00 Abs Immat Gran (auto) 3.00 H Imm/Tot Granulo (auto) 12.5 Sodium 140 Potassium 3.5 L Chloride 116 H Carbon Dioxide 19 L Anion Gap 5 L BUN 10 Creatinine 1.1 Estimated Creat Clear 28.81 Estimated GFR 50 Glucose 125 H Calcium 8.4 Total Bilirubin 0.2 AST 23 ALT 13 Alkaline Phosphatase 115 Total Protein 5.1 L Albumin 2.5 L
--- NOTE | 2023-05-24 09:38 | W.PM.IDPRG_ITS ---
Visit Information Visit Information Visit Information: Patient was not seen. Subjective Subjective Subjective: This patient recommendation is based on a telemedicine consult request which was completed asynchronously through chart review and information provided by the primary physician. The patient was not seen or examined today. The evaluation is consultative in nature and all patient care and treatment decisions can either be accepted or rejected by the patient's primary hospital-based treating physician using their own independent medical judgment for their patient. Home Medications and Allergies Home Medications and Allergies Inpatient Medications: Active Medications Generic Name Dose Route Start Last Admin Trade Name Freq PRN Reason Stop Dose Admin Acetaminophen 975 mg 05/20/23 11:22 05/21/23 13:54 Acetaminophen 325 Mg Tablet PO 975 mg Q6H PRN Administration Allopurinol 200 mg 05/21/23 09:00 05/24/23 08:49 Allopurinol 100 Mg Tablet PO 200 mg DAILY MARKO Administration Amiodarone HCl 200 mg 05/21/23 09:00 05/24/23 08:50 Amiodarone 200 Mg Tablet PO 200 mg DAILY MARKO Administration Atorvastatin Calcium 40 mg 05/20/23 21:00 05/23/23 22:33 Atorvastatin Calcium 40 Mg Tablet PO 40 mg HS MARKO Administration Doxycycline Hyclate 100 mg 05/23/23 21:00 05/24/23 08:50 Doxycycline Hyclate 100 Mg PO 100 mg BID MARKO Administration Enoxaparin Sodium 30 mg 05/22/23 21:00 05/23/23 22:36 Enoxaparin 30 Mg/0.3ml Inj SUBCUT 30 mg HS MARKO Administration Gabapentin 300 mg 05/20/23 11:26 05/21/23 03:31 Gabapentin 300 Mg Capsule PO 300 mg HS PRN Administration Heparin Sodium (Porcine) 500 unit 05/23/23 10:59 05/24/23 06:15 Heparin 500 Unit/5 Ml Syringe IVF 500 unit FLUSHPRN PRN Administration IV Miscellaneous Supplies 1 each 05/24/23 09:00 [facility] Review DAILY MARKO Lactobacillus Acidophilus 1 tab 05/20/23 12:00 05/24/23 08:50 Lactobacillus Acidophilus 1 Tablet PO 1 tab TIDWM MARKO Administration Levothyroxine Sodium 112 mcg 05/21/23 06:00 05/24/23 06:14 Levothyroxine 112 Mcg Tablet PO 112 mcg DAILY@0600 MARKO Administration Levothyroxine Sodium 25 mcg 05/21/23 06:00 05/24/23 06:14 Levothyroxine 25 Mcg Tablet PO 25 mcg DAILY@0600 [facility] Administration Nystatin 1 applic 05/21/23 21:00 05/24/23 08:50 Nystatin Cream 30 Gm TOPICAL 1 applic TID MARKO Administration Omeprazole 20 mg 05/21/23 07:00 05/24/23 06:17 Omeprazole [address] PO 20 mg DAILY@0700 [facility]1983 Administration Ondansetron HCl 8 mg 05/20/23 11:33 Ondansetron Odt 4 Mg Tab PO Q8H PRN nausea/vomiting Potassium Bicarbonate 25 meq 05/24/23 08:00 05/24/23 08:49 Potassium Bicarb 25 Meq Effervescent Tab PO 05/24/23 10:01 25 meq Q2H MARKO Administration Prochlorperazine 5 mg 05/20/23 11:34 Prochlorperazine 10 Mg Tablet PO Q6H PRN nausea/vomiting Quetiapine Fumarate 300 mg 05/20/23 21:00 05/23/23 22:34 Quetiapine 100 Mg Tablet PO 300 mg HS MARKO Administration Sodium Chloride 5 ml 05/20/23 11:22 05/23/23 11:29 Sodium Chloride 0.9 % (Flush) 10 Ml Syringe IVF 5 ml .FLUSH PRN Administration Sodium Chloride 5 ml 05/20/23 21:00 05/24/23 08:50 Sodium Chloride 0.9 % (Flush) 10 Ml Syringe IVF 5 ml BID MARKO Administration Sodium Chloride 5 ml 05/23/23 10:59 Sodium Chloride 0.9 % (Flush) 10 Ml Syringe IVF .FLUSH PRN Vancomycin HCl 125 mg 05/21/23 07:05 05/23/23 22:34 Vancomycin 125 Mg Capsule PO 125 mg QID MARKO Administration Discontinued Medications Generic Name Dose Route Start Last Admin Trade Name Freq PRN Reason Stop Dose Admin Acetaminophen 1,000 mg 05/21/23 08:21 05/21/23 15:53 Acetaminophen 500 Mg Tablet PO 05/21/23 08:22 Not Given ONCE ONE Furosemide 20 mg 05/21/23 12:00 05/21/23 13:53 Furosemide 10 Mg/Ml Inj IV 05/21/23 12:01 20 mg ONCE ONE Administration Sodium Chloride 1,000 mls @ 1,000 mls/hr 05/20/23 08:15 05/20/23 09:47 0.9 % Sodium Chloride 1000 Ml IV 05/20/23 09:14 Infused .Q1H MARKO Infusion Ertapenem 1 gm/ Sodium 100 mls @ 200 mls/hr 05/20/23 10:08 05/20/23 11:45 Chloride IVPB 05/20/23 10:09 Infused ONCE ONE Infusion Ertapenem 1 gm/ Sodium 100 mls @ 200 mls/hr 05/21/23 10:00 05/22/23 12:40 Chloride IVPB Infused Q24H MARKO Infusion Sodium Chloride 1,000 mls @ 125 mls/hr 05/20/23 11:30 05/23/23 03:13 0.9 % Sodium Chloride 1000 Ml IV 125 mls/hr .Q8H MARKO Administration Vancomycin HCl 1,750 mg/ 517.5 mls @ 258.75 mls/hr 05/21/23 08:00 05/22/23 07:11 Sodium Chloride IVPB 05/21/23 09:59 Infused ONCE ONE Infusion Protocol Vancomycin HCl 1,250 mg/ 262.5 mls @ 175 mls/hr 05/22/23 09:00 05/22/23 11:07 Sodium Chloride IVPB Infused Q24H MARKO Infusion IV Miscellaneous Supplies 1 each 05/21/23 09:00 Pharmacist Consult DAILY MARKO Protocol Iopamidol 89 ml 05/20/23 09:00 Iopamidol IV 05/20/23 09:01 .STK-MED ONE Loperamide HCl 2 mg 05/20/23 08:09 05/20/23 09:03 Loperamide Hcl 2 Mg Capsule PO 05/20/23 08:10 2 mg ONCE ONE Administration Potassium Bicarbonate 25 meq 05/23/23 08:00 05/23/23 11:28 Potassium Bicarb 25 Meq Effervescent Tab PO 05/23/23 12:01 25 meq Q2H MARKO Administration Sodium Chloride 250 ml 05/21/23 08:21 0.9 % Sodium Chloride 250 Ml IV 05/22/23 23:59 ONCE PRN Valsartan 320 mg 05/21/23 09:00 05/22/23 08:40 Valsartan 80 Mg Tablet PO 320 mg DAILY MARKO Administration Allergies Allergy/AdvReac Type Severity Reaction Status Date / Time Penicillins Allergy Severe Angioedema Verified 05/20/23 09:04 Objective - Infectious Disease Objective Vital Signs: Vital Signs - 24 hr 05/23/23 09:43 05/23/23 12:45 05/23/23 15:00 Temperature 98 F 97.6 F Pulse Rate 78 Pulse Rate [Pulse Oximeter] 78 78 Respiratory Rate 18 18 Blood Pressure [Left Arm] 132/43 L 135/52 L Blood Pressure [Right Arm] Pulse Oximetry 98 99 Oxygen Delivery Method Room Air Room Air 05/23/23 15:00 05/23/23 15:00 05/23/23 18:26 Temperature 97.5 F L Pulse Rate Pulse Rate [Pulse Oximeter] 78 78 Respiratory Rate 18 18 18 Blood Pressure [Left Arm] 154/74 H Blood Pressure [Right Arm] Pulse Oximetry 99 99 Oxygen Delivery Method Room Air Room Air 05/23/23 19:00 05/23/23 22:40 05/23/23 23:00 Temperature 98.4 F 98.3 F Pulse Rate Pulse Rate [Pulse Oximeter] 71 74 Respiratory Rate 17 16 16 Blood Pressure [Left Arm] 138/54 L 148/57 H Blood Pressure [Right Arm] Pulse Oximetry 98 96 96 Oxygen Delivery Method Room Air Room Air Room Air 05/23/23 23:00 05/24/23 03:00 05/24/23 07:00 Temperature 97.5 F L Pulse Rate 71 Pulse Rate [Pulse Oximeter] 80 Respiratory Rate 17 18 Blood Pressure [Left Arm] Blood Pressure [Right Arm] 141/64 H Pulse Oximetry 95 94 Oxygen Delivery Method Room Air Room Air 05/24/23 07:00 Temperature Pulse Rate Pulse Rate [Pulse Oximeter] 80 Respiratory Rate 18 Blood Pressure [Left Arm] Blood Pressure [Right Arm] 164/67 H Pulse Oximetry 94 Oxygen Delivery Method Room Air Narrative: Patient was not seen or examined. Results - Infectious Disease Results Labs: 05/23/23 06:15 Blood Blood Culture - Preliminary Gram positive cocci in cluster 05/22/23 05:20 Blood Blood Culture - Preliminary NO GROWTH AFTER 48 HOURS 05/20/23 10:43 Blood Blood Culture - Preliminary NO GROWTH AFTER 72 HOURS 05/20/23 11:05 Blood Blood Culture - Final Staphylococcus epidermidis 05/20/23 Unknown Urine,Clean Catch Urine Culture - Final Escherichia coli Klebsiella pneumoniae 05/21/23 01:50 Stool Stool Culture - Preliminary 05/21/23 Unknown Nares MRSA Screen - Final No MRSA (Methicillin resistant Staph aureus) isolated. Laboratory Tests 05/24/23 05/23/23 05/23/23 Range/Units 06:00 07:49 06:15 WBC 23.62 H 22.57 H (4.50-11.00) K/uL RBC 3.17 L 3.36 L (4.00-5.20) m/uL Hgb 9.3 L 10.1 L (12.0-16.0) gm/dL Hct 30.3 L 31.3 L (33.0-51.0) % MCV 96 93 (80-100) fL MCH 29 30 (26-34) pg MCHC 31 L 32 (32-36) gm/dL RDW Coeff of Aris 15.3 15.3 (11.5-15.5) % Plt Count 112 L 119 L (140-440) K/uL Neut % (Auto) 64.1 64.0 (42.0-72.0) % Lymph % (Auto) 8.6 L 5.8 L (20-44) % [place] % (Auto) 13.9 H 14.6 H (0.0-11.0) % Eos % (Auto) 0.7 0.8 (0.0-7.0) % Baso % (Auto) 0.2 0.1 (0.0-3.0) % Neut # (Auto) 15.10 H 14.40 H (1.7-7.0) K/uL Lymph # (Auto) 2.00 1.30 (0.90-2.90) K/uL [place] # (Auto) 3.30 H 3.30 H (0.00-0.90) K/UL Eos # (Auto) 0.20 0.20 (0.00-0.50) K/uL Baso # (Auto) 0.00 0.00 (0.00-0.30) K/uL Abs Immat Gran (auto) 3.00 H 3.30 H (0.00-0.30) K/uL Imm/Tot Granulo (auto) 12.5 14.7 % Diff Slide Review Acceptable Review (Acceptable) Sodium 140 141 (135-149) mmol/L Potassium 3.5 L 3.1 L (3.6-5.1) mmol/L Chloride 116 H 118 H (96-114) mmol/L Carbon Dioxide 19 L 17 L (20-32) mmol/L Anion Gap 5 L 6 L (7-15) mEq/L BUN 10 13 (7-30) mg/dL Creatinine 1.1 1.2 (0.5-1.5) mg/dL Estimated Creat Clear 28.81 26.41 Estimated GFR 50 45 ml/min Glucose 125 H 146 H (60-115) mg/dL Lactate (0.5-1.9) mmol/L Calcium 8.4 8.3 L (8.4-10.6) mg/dL Magnesium 1.8 (1.5-2.6) mg/dL Total Bilirubin 0.2 0.1 (0.1-1.5) mg/dL AST 23 21 (12-35) U/L ALT 13 16 (4-35) U/L Alkaline Phosphatase 115 115 (40-150) U/L Troponin I (0.01-0.04) ng/mL Total Protein 5.1 L 5.3 L (6.0-8.3) g/dL Albumin 2.5 L 2.7 L (3.3-5.0) g/dL TSH (0.270-4.20) uIU/mL Urine Color (Yellow) Urine Appearance (Clear) Urine pH (5.0-8.5) Ur Specific [place] (1.000-1.030) Urine Protein (Negative) Urine Glucose (UA) (Negative) Urine Ketones (Negative) Urine Blood (Negative) Urine Nitrite (Negative) Urine Bilirubin (Negative) Urine Urobilinogen (0.2-1.0) Ur Leukocyte Esterase (Negative) Urine RBC (0-2) Urine WBC (0-5) Ur Squamous Epith Cells (None-Few) Other Sediment (None) Urine Bacteria (None) Fine Granular Casts (None) Urine Yeast (None) Stl C. diff Tox B Gene (Negative) Stl C. diff 027-NAP1-BI (Negative) Lab Acknowledgement Test Added Blood Type Antibody Screen Crossmatch (AHG) 05/22/23 05/21/23 05/21/23 Range/Units 05:20 08:50 08:42 WBC 11.80 H (4.50-11.00) K/uL RBC 3.69 L (4.00-5.20) m/uL Hgb 10.9 L (12.0-16.0) gm/dL Hct 34.3 (33.0-51.0) % MCV 93 (80-100) fL MCH 30 (26-34) pg MCHC 32 (32-36) gm/dL RDW Coeff of Aris 15.5 (11.5-15.5) % Plt Count 115 L (140-440) K/uL Neut % (Auto) 59.0 (42.0-72.0) % Lymph % (Auto) 10.3 L (20-44) % [place] % (Auto) 20.3 H (0.0-11.0) % Eos % (Auto) 1.2 (0.0-7.0) % Baso % (Auto) 0.1 (0.0-3.0) % Neut # (Auto) 7.00 (1.7-7.0) K/uL Lymph # (Auto) 1.20 (0.90-2.90) K/uL [place] # (Auto) 2.40 H (0.00-0.90) K/UL Eos # (Auto) 0.10 (0.00-0.50) K/uL Baso # (Auto) 0.00 (0.00-0.30) K/uL Abs Immat Gran (auto) 1.10 H (0.00-0.30) K/uL Imm/Tot Granulo (auto) 9.1 % Diff Slide Review Acceptable Review (Acceptable) Sodium 140 (135-149) mmol/L Potassium 3.7 (3.6-5.1) mmol/L Chloride 115 H (96-114) mmol/L Carbon Dioxide 15 L (20-32) mmol/L Anion Gap 10 (7-15) mEq/L BUN 16 (7-30) mg/dL Creatinine 1.3 (0.5-1.5) mg/dL Estimated Creat Clear 24.38 Estimated GFR 41 ml/min Glucose 129 H (60-115) mg/dL Lactate 1.7 (0.5-1.9) mmol/L Calcium 8.2 L (8.4-10.6) mg/dL Magnesium (1.5-2.6) mg/dL Total Bilirubin 0.3 (0.1-1.5) mg/dL AST 23 (12-35) U/L ALT 21 (4-35) U/L Alkaline Phosphatase 88 (40-150) U/L Troponin I (0.01-0.04) ng/mL Total Protein 5.9 L (6.0-8.3) g/dL Albumin 2.9 L (3.3-5.0) g/dL TSH (0.270-4.20) uIU/mL Urine Color (Yellow) Urine Appearance (Clear) Urine pH (5.0-8.5) Ur Specific [place] (1.000-1.030) Urine Protein (Negative) Urine Glucose (UA) (Negative) Urine Ketones (Negative) Urine Blood (Negative) Urine Nitrite (Negative) Urine Bilirubin (Negative) Urine Urobilinogen (0.2-1.0) Ur Leukocyte Esterase (Negative) Urine RBC (0-2) Urine WBC (0-5) Ur Squamous Epith Cells (None-Few) Other Sediment (None) Urine Bacteria (None) Fine Granular Casts (None) Urine Yeast (None) Stl C. diff Tox B Gene (Negative) Stl C. diff 027-NAP1-BI (Negative) Lab Acknowledgement New Spec Needed Blood Type O Positive Antibody Screen NEGATIVE Crossmatch (AHG) See Detail 05/21/23 05/21/23 05/20/23 Range/Units 06:00 01:50 12:15 WBC 1.51 L* (4.50-11.00) K/uL RBC 2.61 L (4.00-5.20) m/uL Hgb 7.9 L* (12.0-16.0) gm/dL Hct 24.6 L (33.0-51.0) % MCV 94 (80-100) fL MCH 30 (26-34) pg MCHC 32 (32-36) gm/dL RDW Coeff of Aris 14.6 (11.5-15.5) % Plt Count 85 L (140-440) K/uL Neut % (Auto) 41.6 L (42.0-72.0) % Lymph % (Auto) 30.5 (20-44) % [place] % (Auto) 23.2 H (0.0-11.0) % Eos % (Auto) 3.3 (0.0-7.0) % Baso % (Auto) 0.7 (0.0-3.0) % Neut # (Auto) 0.60 L (1.7-7.0) K/uL Lymph # (Auto) 0.50 L (0.90-2.90) K/uL [place] # (Auto) 0.40 (0.00-0.90) K/UL Eos # (Auto) 0.00 (0.00-0.50) K/uL Baso # (Auto) 0.00 (0.00-0.30) K/uL Abs Immat Gran (auto) 0.00 (0.00-0.30) K/uL Imm/Tot Granulo (auto) 0.7 % Diff Slide Review Acceptable Review (Acceptable) Sodium 136 (135-149) mmol/L Potassium 3.9 (3.6-5.1) mmol/L Chloride 112 (96-114) mmol/L Carbon Dioxide 18 L (20-32) mmol/L Anion Gap 6 L (7-15) mEq/L BUN 21 (7-30) mg/dL Creatinine 1.0 (0.5-1.5) mg/dL Estimated Creat Clear 31.69 Estimated GFR 57 ml/min Glucose 152 H (60-115) mg/dL Lactate 1.0 (0.5-1.9) mmol/L Calcium 7.9 L (8.4-10.6) mg/dL Magnesium (1.5-2.6) mg/dL Total Bilirubin (0.1-1.5) mg/dL AST (12-35) U/L ALT (4-35) U/L Alkaline Phosphatase (40-150) U/L Troponin I (0.01-0.04) ng/mL Total Protein (6.0-8.3) g/dL Albumin (3.3-5.0) g/dL TSH (0.270-4.20) uIU/mL Urine Color (Yellow) Urine Appearance (Clear) Urine pH (5.0-8.5) Ur Specific [place] (1.000-1.030) Urine Protein (Negative) Urine Glucose (UA) (Negative) Urine Ketones (Negative) Urine Blood (Negative) Urine Nitrite (Negative) Urine Bilirubin (Negative) Urine Urobilinogen (0.2-1.0) Ur Leukocyte Esterase (Negative) Urine RBC (0-2) Urine WBC (0-5) Ur Squamous Epith Cells (None-Few) Other Sediment (None) Urine Bacteria (None) Fine Granular Casts (None) Urine Yeast (None) Stl C. diff Tox B Gene POSITIVE A* (Negative) Stl C. diff 027-NAP1-BI PRESUMPTIVE NEGATIVE (Negative) Lab Acknowledgement Test Added Blood Type Antibody Screen Crossmatch (AHG) 05/20/23 05/20/23 Range/Units 08:18 08:09 WBC 0.48 L* (4.50-11.00) K/uL RBC 3.34 L (4.00-5.20) m/uL Hgb 9.9 L (12.0-16.0) gm/dL Hct 31.4 L (33.0-51.0) % MCV 94 (80-100) fL MCH 30 (26-34) pg MCHC 32 (32-36) gm/dL RDW Coeff of Aris 14.5 (11.5-15.5) % Plt Count 77 L (140-440) K/uL Neut % (Auto) 22.9 L (42.0-72.0) % Lymph % (Auto) 52.1 H (20-44) % [place] % (Auto) 10.4 (0.0-11.0) % Eos % (Auto) 10.4 H (0.0-7.0) % Baso % (Auto) 2.1 (0.0-3.0) % Neut # (Auto) 0.10 L (1.7-7.0) K/uL Lymph # (Auto) 0.30 L (0.90-2.90) K/uL [place] # (Auto) 0.00 (0.00-0.90) K/UL Eos # (Auto) 0.00 (0.00-0.50) K/uL Baso # (Auto) 0.00 (0.00-0.30) K/uL Abs Immat Gran (auto) 0.00 (0.00-0.30) K/uL Imm/Tot Granulo (auto) 2.1 % Diff Slide Review Acceptable Review (Acceptable) Sodium 134 L (135-149) mmol/L Potassium 4.1 (3.6-5.1) mmol/L Chloride 108 (96-114) mmol/L Carbon Dioxide 17 L (20-32) mmol/L Anion Gap 9 (7-15) mEq/L BUN 35 H (7-30) mg/dL Creatinine 1.3 (0.5-1.5) mg/dL Estimated Creat Clear 24.38 Estimated GFR 41 ml/min Glucose 191 H (60-115) mg/dL Lactate 1.4 (0.5-1.9) mmol/L Calcium 8.5 (8.4-10.6) mg/dL Magnesium (1.5-2.6) mg/dL Total Bilirubin 0.8 (0.1-1.5) mg/dL AST 24 (12-35) U/L ALT 26 (4-35) U/L Alkaline Phosphatase 80 (40-150) U/L Troponin I 0.04 (0.01-0.04) ng/mL Total Protein 6.0 (6.0-8.3) g/dL Albumin 3.2 L (3.3-5.0) g/dL TSH 6.210 H (0.270-4.20) uIU/mL Urine Color Yellow (Yellow) Urine Appearance Cloudy A (Clear) Urine pH 5.5 (5.0-8.5) Ur Specific [place] 1.010 (1.000-1.030) Urine Protein Trace A (Negative) Urine Glucose (UA) Negative (Negative) Urine Ketones Negative (Negative) Urine Blood 3+ A (Negative) Urine Nitrite Negative (Negative) Urine Bilirubin Negative (Negative) Urine Urobilinogen 1.0 (0.2-1.0) Ur Leukocyte Esterase Trace A (Negative) Urine RBC 5-10 A (0-2) Urine WBC 2-5 (0-5) Ur Squamous Epith Cells Few (None-Few) Other Sediment Few A (None) Urine Bacteria Many A (None) Fine Granular Casts Few A (None) Urine Yeast Few A (None) Stl C. diff Tox B Gene (Negative) Stl C. diff 027-NAP1-BI (Negative) Lab Acknowledgement Blood Type Antibody Screen Crossmatch (AHG) Assessment and Plan Assessment and Plan Assessment and Plan: Per request of [place] Noguera (hospitalist), [facility] [place] be [place] regarding positive blood cx from 05/22 in 1 of 1 set. Patient's 05/19 blood cx showed Staph epi in 1/2 sets, /6 blood cx x 1 set remains neg, but 3/7 blood cx x 1/1 set from port again showing GPC now. Patient afebrile, VSS, no acute complaints per discussions with hospitalist. WBC count however is elevated, thought to be due to combination of C.dif infection (on PO vancomycin) along with ? diverticulitis given CT findings (on PO doxycycline from ertapenem now, in light of reported PCN allergy) and possibly from recent chemo, although it does not appear Neupogen was given. Told hospitalist that for now, would start IV vancomycin and await identification of GPC from 05/22 blood cx set--if this is identified as Staph epi again (as was in / blood cx isolate), most conservative course of action would be to remove port, cx the port tip and then repeat blood cx daily after port removal daily until we have 2 sets neg x 48 hours--until then, no assisted lines or ports should be placed. It would also be worth formally consulting ID at that point to help guide Abx management (finalized regimen/duration). If any worsening noted while awaiting GPC identification (fevers, unstable vitals, worsening WBC count, worsening clinical sx's, etc), then would favor removal of port regardless of above GPC identification, and would again consult ID formally to help assist in further management. Young Ansari MD, [facility] Division of Infectious Disease
--- NOTE | 2023-05-24 10:16 | PC.SOCIAL ---
Discharge planning: Pt will not be discharging today as planned. drying can worker notified Angela at [facility]. Social work to follow-up as needed.
--- NOTE | 2023-05-24 18:34 | PC.NURSE ---
End of Shift: The patient is pleasant... although she reports she feels depressed from being in the hospital and regarding her future decision regarding treatment options for her lung cancer. The patient became tearful as we were talking. The patient reports no pain this shift. Her appetite is fair considering things do not taste good to her. visited today. Positive blood cultures today... tomorrow to draw 2 blood cultures 1 from port and 1 from vein per MD order. Loose stools continue, but less frequently per the patient. 2 doses of liquid potassium were given this shift. Calls appropriately. Xena VILA BSN
[2023-05-24] MEDS: ATORVASTATIN CALCIUM 40 MG TABLET PO (21:28)
[2023-05-24] MEDS: QUETIAPINE 100 MG TABLET 300 MG PO (21:28)
[2023-05-24] MEDS: ENOXAPARIN 30 MG/0.3ML INJ SUBCUT (21:30)
[2023-05-25] VITALS (7 sets, daily range): BP systolic 128–175; BP diastolic 65–94; PULSE 70–85; RESP 12–22; TEMP 36.4–36.7; O2SAT 96–99
[2023-05-25] MEDS: LEVOTHYROXINE 112 MCG TABLET PO (05:50)
[2023-05-25] MEDS: LEVOTHYROXINE 25 MCG TABLET PO (05:51)
[2023-05-25 06:27] LABS: Basophils Percent Auto 0.4 % (0.0-3.0); Hematocrit 29.3 % (33.0-51.0); Hemoglobin* 9.2 gm/dL (12.0-16.0); Immature Granulocytes Pct Auto 18.8 %; Lymphocytes Percent Auto 8.4 % (20-44); Mean Corpuscular HGB Conc 31 gm/dL (32-36); Mean Corpuscular Hemoglobin 29 pg (26-34); Mean Corpuscular Volume 94 fL (80-100); Monocytes Percent Auto 5.3 % (0.0-11.0); Neutrophils Percent Auto 66.1 % (42.0-72.0); Platelet Count* 111 K/uL (140-440); RDW Coefficient of Variation % 15.4 % (11.5-15.5); Red Blood Count 3.13 m/uL (4.00-5.20)
[2023-05-25 06:28] LABS: Slide Review Reflex No
[2023-05-25 06:40] LABS: Chloride* 115 mmol/L (96-114)
[2023-05-25 06:41] LABS: Potassium* 3.9 mmol/L (3.6-5.1); Sodium* 141 mmol/L (135-149)
[2023-05-25 06:43] LABS: Est. Creatinine Clearance* 31.69; Estimated Glomerular Filt Rate 57 ml/min
--- NOTE | 2023-05-25 06:43 | PC.NURSE ---
Pt alert and oriented x3. Afebrile. Pt denies pain, chest pain, pain, SOB, and N/V. Pt?s port is patent, and heparin locked, port dressing is CDI.?Pt is up SBA with walker and gait belt. Pt had incontinent episode of urine, cleaned pt and got new gown and changed bedding. Pt slept throughout most of night.?
[2023-05-25 06:44] LABS: Anion Gap 3 mEq/L (7-15); Blood Urea Nitrogen* 9 mg/dL (7-30); Calcium* 8.5 mg/dL (8.4-10.6); Carbon Dioxide* 23 mmol/L (20-32); Glucose* 114 mg/dL (60-115); Magnesium* 1.6 mg/dL (1.5-2.6)
[2023-05-25] MEDS: OMEPRAZOLE 20 MG CAPSULE DR PO (06:58)
[2023-05-25] MEDS: DOXYCYCLINE HYCLATE 100 MG PO ×2 (09:03→20:16)
[2023-05-25] MEDS: LACTOBACILLUS ACIDOPHILUS 1 TABLET 1 TAB PO ×3 (09:03→17:34)
[2023-05-25] MEDS: allopurinoL 100 MG TABLET 200 MG PO (09:03)
[2023-05-25] MEDS: VANCOMYCIN 125 MG CAPSULE PO ×4 (09:03→20:16)
[2023-05-25] MEDS: AMIODARONE 200 MG TABLET PO (09:03)
[2023-05-25] MEDS: SODIUM CHLORIDE 0.9 % (FLUSH) 10 ML SYRINGE 5 ML IVF (09:03)
[2023-05-25] MEDS: NYSTATIN CREAM 30 GM 1 APPLIC TOPICAL ×3 (09:03→20:15)
--- NOTE | 2023-05-25 12:16 | P.IMPN_ITS ---
Progress Note: A&P Assessment and plan (1) Bacteremia: Problem details: - Staph epidermidis grew out of 1/2 blood cultures from admission on 05/19 (+ blood culture was from peripheral site, NOT port), no growth on 2nd culture or cx from 05/21 - treated with IV Ertapenem (05/19-05/22) and IV Vanco (05/20-05/22) - TTE reassuring 05/20 - + blood culture from 05/22 (drawn from port) - Reviewed with Dr. Ansari of ID on 05/22 and 05/23: given 2nd positive blood culture, patient will need to remain in hospital for formal bacterial identification. In the meantime, PLAN: Continue oral Vancomycin and oral Doxycycline, add back IV Vancomycin (05/23). If bacteria from 05/22 culture is identified as the same Staph epi, then port will need to be removed and patient will need to prove clearance of bacteremia and complete 7 more days of antibiotic therapy. If culture grows out a different coagulase negative staph (contaminant) and patient remains stable, port can remain in place with close f/u 05/24: Finalized culture from 05/22 remains pending. BC x2 from 05/23 NGTD. BC x2 from 05/24 pending Status: Acute (2) Diarrhea: Problem details: - diverticulitis and colitis on CT, recent chemotherapy - C-Diff positive, oral Vancomycin (05/21/23), will send home with Rx to complete full 10 day course - Ertapenem (05/20/23), transitioned to oral Doxycycline (05/22) for diverticulitis after discussion with ID, completed 5 day course of abx for diverticulitis upon d/c - improving daily Status: Acute (3) Colitis: Problem details: - C Diff +, on oral Vanco and clinically improving Status: Acute (4) Urine culture positive: Problem details: - + EColi, asymptomatic - s/p 3 days of IV Ertapenem Status: Acute (5) Anemia: Problem details: - baseline Hgb 10, down to 7.9 on 05/21/23 - transfused 1U PRBCs on 05/20 with improvement of Hgb to baseline of 9-10, stable Status: Acute (6) Acute dehydration: Problem details: - 2/2 diarrhea, continue IVFs and follow lytes/renal function, correct as needed - resolved during stay Status: Acute (7) 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 Ansari) at [facility], evaluating goals of care given illness s/p chemo Status: Acute (8) Atrial fibrillation: Problem details: - rate controlled, on Amiodarone - not anticoagulated at this time, was on Eliquis, stopped by GI given her anemia Status: Acute (9) Primary hypertension: Problem details: - BP has been lower during stay with intermittent orthostasis, Valsartan was discontinued on 05/21 and blood pressures are at age appropriate goal Status: Acute Plan - per above, awaiting bacterial identification from 05/22 culture, 05/24 cultures pending Time Spent With Patient Total time spent: Total time spent caring for the patient today was 45 minutes. This includes time spent for the visit reviewing the chart, time spent during the visit, time spent after the visit and documentation and planning in coordination of care. Subjective Date Seen: 05/25/23 Interval history: Patient reports feeling well. Denies headache or dizziness. Denies chest pain shortness a breath. Tolerating orals without nausea vomiting. Awaiting cultures from 05/22, pending discharge to home. Exam Narrative: Exam Narrative: PHYSICAL EXAM General: Pleasant, conversant, NAD HEENT: Normocephalic, atraumatic, sclera white, EOMI, oral mucosa moist Cardiovascular: RRR Pulmonary: CTA bilaterally without rhonchi, rales, expiratory wheezes. No dyspnea on room air Neurological: Alert, answering questions appropriately, cranial nerves intact, no focal findings Extremities: No gross joint deformity or swelling. AROMI. Neurovascularly intact Skin: Warm, dry. Const: Vital Signs, click to edit/add: Vital Signs - 24 hr 05/24/23 16:00 05/24/23 16:06 05/24/23 16:08 Temperature 97.5 F L Pulse Rate Pulse Rate [Pulse Oximeter] 73 73 Respiratory Rate 18 20 Blood Pressure [Le ft Arm] 153/65 H 153/65 H Blood Pressure [Ri ght Arm] Pulse Oximetry 96 100 100 Oxygen Delivery Me thod Room Air 05/24/23 20:15 05/24/23 21:45 05/24/23 21:45 Temperature 97.8 F Pulse Rate 71 Pulse Rate [Pulse Oximeter] 71 Respiratory Rate 20 20 Blood Pressure [Le ft Arm] Blood Pressure [Ri ght Arm] 158/72 H Pulse Oximetry 93 93 Oxygen Delivery Me thod Room Air Room Air 05/24/23 21:45 05/25/23 02:50 05/25/23 07:00 Temperature 98.1 F 97.6 F 97.8 F Pulse Rate Pulse Rate [Pulse Oximeter] 70 70 78 Respiratory Rate 20 20 20 Blood Pressure [Le ft Arm] 153/74 H Blood Pressure [Ri ght Arm] 167/88 H 160/75 H Pulse Oximetry 97 97 99 Oxygen Delivery Me thod Room Air Room Air Room Air 05/25/23 08:30 Temperature Pulse Rate Pulse Rate [Pulse Oximeter] Respiratory Rate 18 Blood Pressure [Le ft Arm] Blood Pressure [Ri ght Arm] Pulse Oximetry 99 Oxygen Delivery Me thod Room Air Labs Labs: Laboratory Results - last 24 hr 05/25/23 06:00 WBC 18.80 H RBC 3.13 L Hgb 9.2 L Hct 29.3 L MCV 94 MCH 29 MCHC 31 L RDW Coeff of Aris 15.4 Plt Count 111 L Neut % (Auto) 66.1 Lymph % (Auto) 8.4 L [place] % (Auto) 5.3 Eos % (Auto) 1.0 Baso % (Auto) 0.4 Neut # (Auto) 12.40 H Lymph # (Auto) 1.60 [place] # (Auto) 1.00 H Eos # (Auto) 0.20 Baso # (Auto) 0.10 Abs Immat Gran (auto) 3.50 H Imm/Tot Granulo (auto) 18.8 Sodium 141 Potassium 3.9 Chloride 115 H Carbon Dioxide 23 Anion Gap 3 L BUN 9 Creatinine 1.0 Estimated Creat Clear 31.69 Estimated GFR 57 Glucose 114 Calcium 8.5 Magnesium 1.6
[2023-05-25] MEDS: HEPARIN 500 UNIT/5 ML SYRINGE IVF (16:04)
--- NOTE | 2023-05-25 18:53 | PC.NURSE ---
End of Shift: VS hypertensive throughout the day, but not symptomatic. R port to chest that is heparin locked. IV vanco infused earlier today. Up to the BR frequently for loose stools throughout the day. Episodes of bowel continence/incontinence. Ambulated in the marie with me 1x this shift and another time with PT. SOB on exertion with walking is normal for her due to her fatigue she told me. Tolerating a normal diet well with adequate PO intake despite decreased appetite. Awaiting blood cultures to result. Calls appropriately. Xena VILA BSN
[2023-05-25] MEDS: ENOXAPARIN 30 MG/0.3ML INJ SUBCUT (20:15)
[2023-05-25] MEDS: QUETIAPINE 100 MG TABLET 300 MG PO (20:16)
[2023-05-25] MEDS: ATORVASTATIN CALCIUM 40 MG TABLET PO (20:16)
[2023-05-26] VITALS (7 sets, daily range): BP systolic 160–193; BP diastolic 64–86; PULSE 74–80; RESP 16–20; TEMP 36.4–37.3; O2SAT 95–98
[2023-05-26] MEDS: LEVOTHYROXINE 112 MCG TABLET PO (06:04)
[2023-05-26] MEDS: OMEPRAZOLE 20 MG CAPSULE DR PO (06:04)
[2023-05-26] MEDS: LEVOTHYROXINE 25 MCG TABLET PO (06:04)
--- NOTE | 2023-05-26 06:14 | PC.NURSE ---
End of shift [id number] ? Pt alert, oriented x 4, cooperative, and pleasant. Up to bathroom with standby assistance, walker, gait belt. Continent of bowel and bladder. Pt reports instances of loose stool have ?slowed down? and self-reports making an effort to eat majority of meals despite decreased appetite. Pt afebrile, VSS, tolerating RA. Pt appears to be resting comfortably at the end of shift. ?
--- NOTE | 2023-05-26 07:40 | P.IMPN_ITS ---
Progress Note: A&P Assessment and plan (1) Bacteremia: Problem details: - Staph epidermidis grew out of 1/2 blood cultures from admission on 05/19 (+ blood culture was from peripheral site, NOT port), no growth on 2nd culture or cx from 05/21 - treated with IV Ertapenem (05/19-05/22) and IV Vanco (05/20-05/22) - TTE reassuring 05/20 - + blood culture from 05/22 (drawn from port) - Reviewed with Dr. Ansari of ID on 05/22 and 05/23: given 2nd positive blood culture, patient will need to remain in hospital for formal bacterial identification. In the meantime, PLAN: Continue oral Vancomycin and oral Doxycycline, add back IV Vancomycin (05/23). If bacteria from 05/22 culture is identified as the same Staph epi, then port will need to be removed and patient will need to prove clearance of bacteremia and complete 7 more days of antibiotic therapy. If culture grows out a different coagulase negative staph (contaminant) and patient remains stable, port can remain in place with close f/u 05/24: Finalized culture from 05/22 remains pending. BC x2 from 05/23 NGTD. BC x2 from 05/24 pending 05/25: Culture from 05/[address] Pires removed port this morning. Tip has been cultured. Serial repeat blood cultures ordered. Per ID, will need 2 sets negative cultures times 48 hours. Until then, no long-term lines or ports should be placed. Will call ID again tomorrow for further recommendations. Currently continues on IV vancomycin, oral vancomycin, oral doxycycline. Status: Acute (2) Diarrhea: Problem details: - diverticulitis and colitis on CT, recent chemotherapy - C-Diff positive, oral Vancomycin (05/21/23), will send home with Rx to complete full 10 day course - Ertapenem (05/20/23), transitioned to oral Doxycycline (05/22) for diverticulitis after discussion with ID, completed 5 day course of abx for diverticulitis upon d/c - improving daily - solid, formed stools reported 05/25 Status: Acute (3) Colitis: Problem details: - C Diff +, on oral Vanco and clinically improving Status: Acute (4) Urine culture positive: Problem details: - + EColi, asymptomatic - s/p 3 days of IV Ertapenem Status: Acute (5) Anemia: Problem details: - baseline Hgb 10, down to 7.9 on 05/21/23 - transfused 1U PRBCs on 05/20 with improvement of Hgb to baseline of 9-10, stable Status: Acute (6) Acute dehydration: Problem details: - 2/2 diarrhea, continue IVFs and follow lytes/renal function, correct as needed - resolved during stay Status: Acute (7) 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 Ansari) at [facility], evaluating goals of care given illness s/p chemo - 05/25 port has been removed. Will need outpatient follow-up with Oncology to reassess replacing port or discussion for further goals of care Status: Acute (8) Atrial fibrillation: Problem details: - rate controlled, on Amiodarone - not anticoagulated at this time, was on Eliquis, stopped by GI given her anemia Status: Acute (9) Primary hypertension: Problem details: - BP has been lower during stay with intermittent orthostasis, Valsartan was discontinued on 05/21 and blood pressures are at age appropriate goal Status: Acute Plan - serial blood cultures, port culture Time Spent With Patient Total time spent: Total time spent caring for the patient today was 45 minutes. This includes time spent for the visit reviewing the chart, time spent during the visit, time spent after the visit and documentation and planning in coordination of care. Subjective Date Seen: 05/26/23 Interval history: Patient continues to do well without complaints. Remains afebrile. Hemodynamically stable. Culture from 05/22 grew out Staph epi. Per ID recommendations, patient will need to have port removed and port tip cultured. She will need repeat blood cultures with goal of negative cultures for the next 48 hours. Patient has been informed. Exam Narrative: Exam Narrative: PHYSICAL EXAM General: Pleasant, conversant, NAD Cardiovascular: RRR Pulmonary: CTA bilaterally without rhonchi, rales, expiratory wheezes. No dyspnea on room air Neurological: Alert, answering questions appropriately, cranial nerves intact, no focal findings Extremities: No gross joint deformity or swelling. AROMI. Neurovascularly intact Skin: Warm, dry. Const: Vital Signs, click to edit/add: Vital Signs - 24 hr 05/25/23 07:00 05/25/23 08:30 05/25/23 11:00 Temperature 97.8 F 97.9 F Pulse Rate [Pulse Oximeter] 78 78 Respiratory Rate 20 18 18 Blood Pressure [Le ft Arm] 153/74 H 169/65 H Blood Pressure [Ri ght Arm] Pulse Oximetry 99 99 99 Oxygen Delivery Me thod Room Air Room Air Room Air 05/25/23 15:00 05/25/23 15:00 05/25/23 19:00 Temperature 97.8 F 98.1 F Pulse Rate [Pulse Oximeter] 80 85 Respiratory Rate 22 12 Blood Pressure [Le ft Arm] 128/94 H Blood Pressure [Ri ght Arm] 170/77 H Pulse Oximetry 99 99 96 Oxygen Delivery Me thod Room Air Room Air Room Air 05/25/23 23:00 05/25/23 23:00 05/26/23 03:00 Temperature 98.1 F 97.6 F Pulse Rate [Pulse Oximeter] 77 76 Respiratory Rate 15 15 19 Blood Pressure [Le ft Arm] 175/75 H 175/75 H Blood Pressure [Ri ght Arm] Pulse Oximetry 96 96 97 Oxygen Delivery Me thod Room Air Room Air Room Air Labs Labs: Laboratory Results - last 24 hr 05/25/23 06:00 Sodium 141 Potassium 3.9 Chloride 115 H Carbon Dioxide 23 Anion Gap 3 L BUN 9 Creatinine 1.0 Estimated Creat Clear 31.69 Estimated GFR 57 Glucose 114 Calcium 8.5 Magnesium 1.6
[2023-05-26] MEDS: allopurinoL 100 MG TABLET 200 MG PO (09:30)
[2023-05-26] MEDS: AMIODARONE 200 MG TABLET PO (09:30)
[2023-05-26] MEDS: VANCOMYCIN 125 MG CAPSULE PO ×4 (09:30→21:13)
[2023-05-26] MEDS: DOXYCYCLINE HYCLATE 100 MG PO ×2 (09:30→21:13)
[2023-05-26] MEDS: LACTOBACILLUS ACIDOPHILUS 1 TABLET 1 TAB PO ×3 (09:30→17:53)
[2023-05-26] MEDS: SODIUM CHLORIDE 0.9 % (FLUSH) 10 ML SYRINGE 5 ML IVF ×3 (09:31→21:12)
[2023-05-26] MEDS: HEPARIN 500 UNIT/5 ML SYRINGE IVF (09:31)
[2023-05-26] MEDS: NYSTATIN CREAM 30 GM 1 APPLIC TOPICAL ×3 (09:35→21:15)
--- NOTE | 2023-05-26 10:27 | P.PCN_ITS ---
Procedure Note Date Seen: 05/26/23 Will [facility] bill your pro fee for this procedure?: Yes Pre-op diagnosis: 1. Staph epidermidis bacteremia. Post-op diagnosis: same Procedure: 1. Right internal jugular Port-A-Cath removal. Procedure Description: Right internal jugular port a cath removal After an informed consent was obtained, patient's skin over the port was prepped and draped in the usual sterile fashion. 1% Lidocaine with Epinephrine was injected around the area of the port. A transverse skin incision was made right over the previous scar and subcutaneous tissues were dissected down to the catheter with scissors. The catheter was then pulled up into the incision and pulled all the way out from the neck. The catheter came out in one piece. The tissues around the port itself were then dissected with scissors and anchoring stitches laterally and medially were cut. The port was then delivered out of the incision. Surgical field was examined for hemostasis and there was not bleeding. Subcutaneous tissues were re-approximated with 3-0 vicryl interrrupted stitches and skin was closed with a running 4-0 monocryl subcuticular stitch. Steri strips were applied over the incision. The patient tolerated procedure well. The port and the tubing were send for tip culture. Anesthesia: local Estimated blood loss (mL): 2 Pathology: specimen obtained, sent to pathology Condition: stable Disposition: no change
--- NOTE | 2023-05-26 18:43 | PC.NURSE ---
End of shift-- Very pleasant and cooperative, alert and oriented patient. VSS and pt is afebrile. SPO2 maintained >90% on RA. She denied any pain. LS clear but diminished. Port was removed at bedside by Dr. Pires and pt tolerated procedure well. Dressing to site is C/D/I. She denied nausea and tolerated small amounts of a regular diet, though appetite remains poor. She had several soft but formed continent stools today. She was up to the BR and chair with SBA and walker and did become SOB with exertion.
[2023-05-26] MEDS: ACETAMINOPHEN 325 MG TABLET 975 MG PO (21:09)
[2023-05-26] MEDS: QUETIAPINE 100 MG TABLET 300 MG PO (21:13)
[2023-05-26] MEDS: ENOXAPARIN 30 MG/0.3ML INJ SUBCUT (21:13)
[2023-05-26] MEDS: ATORVASTATIN CALCIUM 40 MG TABLET PO (21:13)
[2023-05-27 06:19] LABS: Hematocrit 29.1 % (33.0-51.0); Hemoglobin* 9.3 gm/dL (12.0-16.0); Mean Corpuscular HGB Conc 32 gm/dL (32-36); Mean Corpuscular Hemoglobin 30 pg (26-34); Mean Corpuscular Volume 94 fL (80-100); Platelet Count* 94 K/uL (140-440); Red Blood Count 3.11 m/uL (4.00-5.20)
[2023-05-27 06:20] VITALS: BP 160/74; PULSE 68; RESP 18; TEMP 36.4; O2SAT 95
[2023-05-27 06:20] LABS: Slide Review Reflex No
[2023-05-27] MEDS: LEVOTHYROXINE 112 MCG TABLET PO (06:31)
[2023-05-27] MEDS: OMEPRAZOLE 20 MG CAPSULE DR PO (06:32)
[2023-05-27] MEDS: LEVOTHYROXINE 25 MCG TABLET PO (06:32)
[2023-05-27 07:00] VITALS: BP 160/81; PULSE 73; RESP 18; TEMP 36.7; O2SAT 95
[2023-05-27] MEDS: VANCOMYCIN 125 MG CAPSULE PO ×4 (09:15→21:08)
[2023-05-27] MEDS: DOXYCYCLINE HYCLATE 100 MG PO ×2 (09:15→21:08)
[2023-05-27] MEDS: AMLODIPINE 5 MG TABLET PO (09:15)
[2023-05-27] MEDS: SODIUM CHLORIDE 0.9 % (FLUSH) 10 ML SYRINGE 5 ML IVF ×2 (09:16→21:09)
[2023-05-27] MEDS: NYSTATIN CREAM 30 GM 1 APPLIC TOPICAL ×3 (09:16→21:09)
[2023-05-27] MEDS: allopurinoL 100 MG TABLET 200 MG PO (09:16)
[2023-05-27] MEDS: AMIODARONE 200 MG TABLET PO (09:16)
[2023-05-27] MEDS: LACTOBACILLUS ACIDOPHILUS 1 TABLET 1 TAB PO ×3 (09:24→17:41)
[2023-05-27 11:00] VITALS: BP 181/85; PULSE 74; RESP 18; TEMP 37; O2SAT 97
[2023-05-27] MEDS: VALSARTAN 80 MG TABLET 320 MG PO (12:15)
--- NOTE | 2023-05-27 12:20 | P.IMPN_ITS ---
Progress Note: A&P Assessment and plan (1) Bacteremia: Problem details: - Staph epidermidis grew out of 1/2 blood cultures from admission on 05/19 (+ blood culture was from peripheral site, NOT port), no growth on 2nd culture or cx from 05/21 - treated with IV Ertapenem (05/19-05/22) and IV Vanco (05/20-05/21) - TTE reassuring 05/20 - + blood culture from 05/22 (drawn from port) - Reviewed with Dr. Ansari of ID on 05/22 and 05/23: given 2nd positive blood culture, patient will need to remain in hospital for formal bacterial identification. In the meantime, PLAN: Continue oral Vancomycin and oral Doxycycline, add back IV Vancomycin (05/23). If bacteria from 05/22 culture is identified as the same Staph epi, then port will need to be removed and patient will need to prove clearance of bacteremia and complete 7 more days of antibiotic therapy. If culture grows out a different coagulase negative staph (contaminant) and patient remains stable, port can remain in place with close f/u 05/24: Finalized culture from 05/22 remains pending. BC x2 from 05/23 NGTD. BC x2 from 05/24 pending 05/25: Culture from 05/[address] Pires removed port this morning. Tip has been cultured. Serial repeat blood cultures ordered. Per ID, will need 2 sets negative cultures times 48 hours. Until then, no long-term lines or ports should be placed. Will call ID again tomorrow for further recommendations. Currently continues on IV vancomycin, oral vancomycin, oral doxycycline. 05/26: Culture from port, removed on 05/25, currently showing no growth after 24 hours. BC x2 from 05/25 preliminarily NGTD. Spoke with ID, marketing sales consultant recommending 1 more set of blood cultures to be drawn tomorrow morning, 05/27. As long as cultures are being followed, and patient remains asymptomatic, given cultures thus far have been negative, patient would be okay to discharge to home tomorrow with follow-up on pending cultures. She did recommend that a port not be placed until all cultures are negative though we did discuss that the patient is currently considering discontinuing chemotherapy for quality of life measures. She further recommended no more than a 7 day course of IV antibiotics, completing the current course as started on 05/23. Plan: day 5 of IV Vanco will be 05/27 which she will receive here prior to discharge. We will set her up for outpatient IV Vanco on 05/28 and 05/29 to complete 7 day course IV antibiotic therapy. She will have outpatient follow up with Oncology this week (patient is working on scheduling this) as well as with her PCP in the next 5-7 days. Status: Resolved (2) Diarrhea: Problem details: - diverticulitis and colitis on CT, recent chemotherapy - C-Diff positive, oral Vancomycin (05/21/23), will send home with Rx to complete full 10 day course - Ertapenem (05/20/23), transitioned to oral Doxycycline (05/22) for diverticulitis after discussion with ID, completed 5 day course of abx for diverticulitis upon d/c - improving daily - solid, formed stools reported 05/25 Status: Acute (3) Colitis: Problem details: - C Diff +, on oral Vanco and clinically improving Status: Resolved (4) Urine culture positive: Problem details: - + EColi, asymptomatic - s/p 3 days of IV Ertapenem Status: Acute (5) Anemia: Problem details: - baseline Hgb 10, down to 7.9 on 05/21/23 - transfused 1U PRBCs on 05/20 with improvement of Hgb to baseline of 9-10, stable Status: Inactive (6) Acute dehydration: Problem details: - 2/2 diarrhea, continue IVFs and follow lytes/renal function, correct as needed - resolved during stay Status: Resolved (7) 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 Ansari) at [facility], evaluating goals of care given illness s/p chemo - 05/25 port has been removed. Will need outpatient follow-up with Oncology to reassess replacing port or discussion for further goals of care will request support group information during their follow-up oncology appointment this week Status: Inactive (8) Atrial fibrillation: Problem details: - rate controlled, on Amiodarone - not anticoagulated at this time, was on Eliquis, stopped by GI given her anemia Status: Inactive (9) Primary hypertension: Problem details: - BP has been lower during stay with intermittent orthostasis, Valsartan was discontinued on 05/21 - restarted on 05/26 Status: Acute Plan 05/27: Day 5 IV vancomycin, blood culture x2, discharge to home. Outpatient IV vancomycin on 05/28 and 05/29 to complete a 7 day course of antibiotic therapy. Patient is working on scheduling an outpatient oncology appointment this week. Time Spent With Patient Total time spent: Total time spent caring for the patient today was 60 minutes. This includes time spent for the visit reviewing the chart, time spent during the visit, time spent after the visit and documentation and planning in coordination of care. Subjective Date Seen: 05/27/23 Interval history: Patient is seen with at bedside this morning. Continues to do well. Remains afebrile. No new symptoms or complaints. Tolerating orals without nausea vomiting. Culture from port, removed on 05/25, currently showing no growth after 24 hours. BC x2 from 05/25 preliminarily NGTD. Spoke with ID, marketing sales consultant recommending 1 more set of blood cultures to be drawn tomorrow morning. As long as cultures are being followed, and patient remains asymptomatic, given cultures thus far have been negative, patient would be okay to discharge to home tomorrow with follow-up on pending cultures. She did recommend that a port not be placed until all cultures are negative though we did discuss that the patient is currently considering discontinuing chemotherapy for quality of life measures. Further recommended completing no longer than a 7 day course of antibiotics in setting of recent C difficile infection, that the current course of antibiotic therapy is thus appropriate. Exam Narrative: Exam Narrative: PHYSICAL EXAM General: Very pleasant, conversant, NAD Cardiovascular: RRR Pulmonary: CTA bilaterally without rhonchi, rales, expiratory wheezes. No dyspnea on room air Neurological: Alert, answering questions appropriately, cranial nerves intact, no focal findings Extremities: No gross joint deformity or swelling. AROMI. Neurovascularly intact Skin: Warm, dry. Const: Vital Signs, click to edit/add: Vital Signs - 24 hr 05/26/23 15:00 05/26/23 15:00 05/26/23 15:00 Temperature 98.5 F Pulse Rate [Pulse Oximeter] 80 80 Respiratory Rate 20 20 20 Blood Pressure [Le ft Arm] 173/74 H Blood Pressure [Ri ght Arm] Pulse Oximetry 97 96 Oxygen Delivery Me thod Room Air Room Air 05/26/23 19:55 05/26/23 19:55 05/26/23 19:55 Temperature 99.1 F Pulse Rate [Pulse Oximeter] 74 74 Respiratory Rate 16 16 16 Blood Pressure [Le ft Arm] Blood Pressure [Ri ght Arm] 180/82 H Pulse Oximetry 98 98 Oxygen Delivery Me thod Room Air Room Air 05/26/23 21:09 05/26/23 23:00 05/27/23 06:20 Temperature 99.1 F 98.1 F 97.6 F Pulse Rate [Pulse Oximeter] 77 68 Respiratory Rate 20 18 Blood Pressure [Le ft Arm] Blood Pressure [Ri ght Arm] 160/64 H 160/74 H Pulse Oximetry 95 95 Oxygen Delivery Me thod Room Air Room Air 05/27/23 07:00 05/27/23 07:00 05/27/23 07:00 Temperature 98.1 F Pulse Rate [Pulse Oximeter] 73 73 Respiratory Rate 18 18 18 Blood Pressure [Le ft Arm] Blood Pressure [Ri ght Arm] 160/81 H Pulse Oximetry 95 95 Oxygen Delivery Me thod Room Air Room Air 05/27/23 11:00 Temperature 98.6 F Pulse Rate [Pulse Oximeter] 74 Respiratory Rate 18 Blood Pressure [Le ft Arm] 181/85 H Blood Pressure [Ri ght Arm] Pulse Oximetry 97 Oxygen Delivery Me thod Room Air Labs Labs: Laboratory Results - last 24 hr 05/27/23 06:04 WBC 15.20 H RBC 3.11 L Hgb 9.3 L Hct 29.1 L MCV 94 MCH 30 MCHC 32 Plt Count 94 L
[2023-05-27 15:00] VITALS: BP 168/70; PULSE 81; RESP 18; TEMP 36.9; O2SAT 95
--- NOTE | 2023-05-27 20:05 | PC.NURSE ---
Patient alert and oriented. Tolerating a reg diet. denies pain, n/V. Patient SOB after ambulating to BR. uses walker, SBA to BR.
[2023-05-27 21:00] VITALS: BP 173/86; PULSE 74; RESP 16; TEMP 37.3; O2SAT 94
[2023-05-27] MEDS: QUETIAPINE 100 MG TABLET 300 MG PO (21:08)
[2023-05-27] MEDS: ATORVASTATIN CALCIUM 40 MG TABLET PO (21:08)
[2023-05-27] MEDS: ENOXAPARIN 30 MG/0.3ML INJ SUBCUT (21:09)
[2023-05-27 23:00] VITALS: BP 179/90; PULSE 74; RESP 13; TEMP 36.9; O2SAT 94
[2023-05-28 06:24] LABS: Hematocrit 30.2 % (33.0-51.0); Hemoglobin* 9.6 gm/dL (12.0-16.0); Mean Corpuscular HGB Conc 32 gm/dL (32-36); Mean Corpuscular Hemoglobin 30 pg (26-34); Mean Corpuscular Volume 94 fL (80-100); Platelet Count* 95 K/uL (140-440); Red Blood Count 3.22 m/uL (4.00-5.20); White Blood Count* 14.42 K/uL (4.50-11.00)
[2023-05-28 06:25] VITALS: BP 150/65; PULSE 74; RESP 16; TEMP 36.6; O2SAT 96
[2023-05-28] MEDS: LEVOTHYROXINE 25 MCG TABLET PO (06:25)
[2023-05-28] MEDS: OMEPRAZOLE 20 MG CAPSULE DR PO (06:25)
[2023-05-28] MEDS: LEVOTHYROXINE 112 MCG TABLET PO (06:25)
[2023-05-28 06:30] LABS: Slide Review Reflex No
[2023-05-28 07:00] VITALS: PULSE 73; RESP 16
[2023-05-28 08:30] VITALS: BP 165/75; PULSE 73; TEMP 36.4; O2SAT 92
[2023-05-28 08:38] VITALS: O2SAT 92
[2023-05-28] MEDS: LACTOBACILLUS ACIDOPHILUS 1 TABLET 1 TAB PO ×2 (08:40→11:17)
[2023-05-28] MEDS: DOXYCYCLINE HYCLATE 100 MG PO (08:40)
[2023-05-28] MEDS: allopurinoL 100 MG TABLET 200 MG PO (08:41)
[2023-05-28] MEDS: AMLODIPINE 5 MG TABLET PO (08:41)
[2023-05-28] MEDS: AMIODARONE 200 MG TABLET PO (08:41)
[2023-05-28] MEDS: VALSARTAN 80 MG TABLET 320 MG PO (08:41)
[2023-05-28] MEDS: VANCOMYCIN 125 MG CAPSULE PO (08:41)
--- NOTE | 2023-05-28 10:11 | P.DS_ITS ---
DS: Providers Provider Date Seen: 05/28/23 Date of admission: 05/20/23 11:22 Primary care physician: Andrew Rodríguez MD Admitting Clinician: Reece Hoang MD Consults: 05/20/23 11:22 Consult to Nutrition [CONS] Routine Comment: Reason for consult:: Diarrhea > 3 days Consult to Physical Therapy [CONS] Routine Comment: Reason(s) for PT Consult:: Evaluate and Treat Any Restrictions?:: No Restrictions 05/20/23 11:25 Consult to Occupational Therapy [CONS] Routine Comment: Reason(s) for OT Consult:: Evaluate and Treat Any Restrictions?:: No Restrictions 05/20/23 15:27 Consult to Occupational Therapy [CONS] Routine Comment: Reason(s) for OT Consult:: Evaluate and Treat Any Restrictions?:: No Restrictions Consult to Physical Therapy [CONS] Routine Comment: Reason(s) for PT Consult:: Evaluate and Treat Any Restrictions?:: No Restrictions 05/23/23 09:23 Consult to Infectious Diseases [CONS] Routine Comment: BA already called Consulting Provider: [facility] Consult priority: Routine Has provider been notified: Yes Call back required?: Yes 05/26/23 07:29 Consult to Physician [CONS] Routine Comment: Consulting Provider: Cee Pires Has provider been notified: Yes Attending Physician on discharge: Emy Velasquez [facility] Date [facility] Discharge: 05/28/23 DS: Diagnosis Discharge Diagnosis (1) Bacteremia: Status: Resolved Problem details: - Staph epidermidis grew out of 1/2 blood cultures from admission on 05/19 (+ blood culture was from peripheral site, NOT port), no growth on 2nd culture or cx from 05/21 - treated with IV Ertapenem (05/19-05/22) and IV Vanco (05/20-05/21) - TTE reassuring 05/20 - + blood culture from 05/22 (drawn from port), also grew out Staph epidermis - Reviewed with Dr. Ansari of ID on 05/22 and 05/23: given 2nd positive blood culture, patient will need to remain in hospital for formal bacterial identification. In the meantime, PLAN: Continue oral Vancomycin and oral Doxycycline, add back IV Vancomycin (05/23). If bacteria from 05/22 culture is identified as the same Staph epi, then port will need to be removed and patient will need to prove clearance of bacteremia and complete 7 more days of antibiotic therapy. If culture grows out a different coagulase negative staph (contaminant) and patient remains stable, port can remain in place with close f/u 05/24: Finalized culture from 05/22 remains pending. BC x2 from 05/23 NGTD. BC x2 from 05/24 pending 05/25: Culture from 05/[address] Pires removed port this morning. Tip has been cultured. Serial repeat blood cultures ordered. Per ID, will need 2 sets negative cultures times 48 hours. Until then, no long-term lines or ports should be placed. Will call ID again tomorrow for further recommendations. Currently continues on IV vancomycin, oral vancomycin, oral doxycycline. 05/26: Culture from port, removed on 05/25, currently showing no growth after 24 hours. BC x2 from 05/25 preliminarily NGTD. Spoke with ID, senior telecommunications consultant recommending 1 more set of blood cultures to be drawn tomorrow morning, 05/27. As long as cultures are being followed, and patient remains asymptomatic, given cultures thus far have been negative, patient would be okay to discharge to home tomorrow with follow-up on pending cultures. She did recommend that a port not be placed until all cultures are negative though we did discuss that the patient is currently considering discontinuing chemotherapy for quality of life measures. She further recommended no more than a 7 day course of IV antibiotics, completing the current course as started on 05/23. Plan: day 5 of IV Vanco will be 05/27 which she will receive here prior to discha rge. We will set her up for outpatient IV Vanco on 05/28 and 05/29 to complete 7 day course IV antibiotic therapy. She will have outpatient follow up with Oncology this week to determine further goals of care as well as with her PCP in the next 5-7 days. (2) Diarrhea: Status: Acute Problem details: - diverticulitis and colitis on CT, recent chemotherapy - C-Diff positive, oral Vancomycin (05/21/23), will send home with Rx to complete full 10 day course (last day of doses 05/29) - Ertapenem (05/20/23), transitioned to oral Doxycycline (05/22-3/12) for diverticulitis after discussion with ID to complete 5 day course (3) Colitis: Status: Resolved Problem details: - C Diff +, on oral Vanco, management as above (4) Urine culture positive: Status: Acute Problem details: - + EColi, asymptomatic - completed 3 days of IV Ertapenem (5) Anemia: Status: Inactive Problem details: - baseline Hgb 10, down to 7.9 on 05/21/23 - transfused 1U PRBCs on 05/20 with improvement of Hgb to baseline of 9-10, stable (6) Acute dehydration: Status: Resolved Problem details: - 2/2 diarrhea, resolved during stay following IVF hydration (7) 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 Ansari) at [facility], evaluating goals of care given illness s/p chemo - 05/25 port has been removed. Will need outpatient follow-up with Oncology to reassess replacing port or discussion for further goals of care will request support group information during their follow-up oncology appointment this week (8) Atrial fibrillation: Status: Inactive Problem details: - rate controlled, on Amiodarone - not anticoagulated at this time, was on Eliquis, stopped by GI given her anemia (9) Primary hypertension: Status: Acute Problem details: - BP has been lower during stay with intermittent orthostasis, Valsartan was discontinued on 05/21 then restarted on 05/26 DS: Summary Hospital Course Hospital Course: [age] year old female past medical history significant for hypertension, hypothyroidism, gout, GERD, iron deficiency anemia, steatosis of liver, IBS was admitted to the medical floor for management UTI, colitis, bacteremia. Course of care and details as noted above. Given complexity of stay, complete details, including timeline of care, as outlined above. Patient is discharged to continue IV vancomycin in the infusion center on May 28 and , to complete 7 day course of IV vancomycin for bacteremia (Staph epidermis). Additionally, patient is discharged with oral vancomycin to complete a 10 day course (finishing on May 29) for C difficile diarrhea. She and her will follow-up with oncology for further discussion of goals of care. At time of discharge, patient was interested in pursuing quality of life measures, not ever wanting to go through her after chemo period again. Her is struggling with this decision. Patient reports her son is understanding and very supportive. Remainder of chronic medical comorbidities were monitored and managed with home medications. Status at Discharge Overall status at discharge: patient is back to baseline Time Spent with Patient Time attestation: Total time spent providing and/or coordinating discharge services: Time spent: Greater than 30 minutes Exam Narrative: Exam Narrative: PHYSICAL EXAM General: Pleasant, conversant, NAD Cardiovascular: RRR Pulmonary: No dyspnea Neurological: Alert, answering questions appropriately Skin: Warm, dry. Const: Vital Signs, click to edit/add: Vital Signs - 24 hr 05/27/23 11:00 05/27/23 15:00 05/27/23 15:00 Temperature 98.6 F Pulse Rate [Pulse Oximeter] 74 81 Respiratory Rate 18 18 18 Blood Pressure [Le ft Arm] 181/85 H Blood Pressure [Ri ght Arm] Pulse Oximetry 97 95 Oxygen Delivery Me thod Room Air Room Air 05/27/23 15:00 05/27/23 21:00 05/27/23 21:00 Temperature 98.4 F 99.2 F Pulse Rate [Pulse Oximeter] 81 74 74 Respiratory Rate 18 16 16 Blood Pressure [Le ft Arm] Blood Pressure [Ri ght Arm] 168/70 H 173/86 H Pulse Oximetry 95 94 Oxygen Delivery Me thod Room Air Room Air 05/27/23 23:00 05/27/23 23:00 05/28/23 06:25 Temperature 98.4 F 97.8 F Pulse Rate [Pulse Oximeter] 74 74 Respiratory Rate 13 13 16 Blood Pressure [Le ft Arm] Blood Pressure [Ri ght Arm] 179/90 H 150/65 H Pulse Oximetry 94 94 96 Oxygen Delivery Me thod Room Air Room Air Room Air 05/28/23 07:00 05/28/23 08:30 05/28/23 08:38 Temperature 97.6 F Pulse Rate [Pulse Oximeter] 73 73 Respiratory Rate 16 Blood Pressure [Le ft Arm] 165/75 H Blood Pressure [Ri ght Arm] Pulse Oximetry 92 92 Oxygen Delivery Me thod Room Air Room Air DS: Data Data Completed and Pending Completed studies during hospitalization: Procedures Inspection of Upper Intestinal Tract, Via Natural or Artificial Opening Endoscopic (04/08/22) Transfusion of Nonautologous Red Blood Cells into Peripheral Vein, Percutaneous Approach (04/08/22) Pending studies at discharge: Preliminary: 05/23 - 05/24 - 05/25 - 05/26 blood cultures no growth 05/25 port tip culture no growth 05/27 blood cultures pending Labs on day of discharge: Labs from last 24 hours 05/28/23 05/28/23 09:47 06:03 WBC 14.42 H RBC 3.22 L Hgb 9.6 L Hct 30.2 L MCV 94 MCH 30 MCHC 32 Plt Count 95 L Vancomycin Trough Pending Preliminary micro results at discharge 05/26/23 11:00 Wound Culture - Preliminary Catheter Tip - Other NO GROWTH AFTER 48 HOURS 05/25/23 06:04 Blood Culture - Preliminary Blood NO GROWTH AFTER 72 HOURS 05/25/23 06:00 Blood Culture - Preliminary Blood NO GROWTH AFTER 72 HOURS 05/27/23 06:09 Blood Culture - Preliminary Blood NO GROWTH AFTER 24 HOURS 05/27/23 06:04 Blood Culture - Preliminary Blood NO GROWTH AFTER 24 HOURS 05/26/23 10:45 Blood Culture - Preliminary Blood NO GROWTH AFTER 24 HOURS 05/26/23 10:52 Blood Culture - Preliminary Blood NO GROWTH AFTER 24 HOURS 05/24/23 10:28 Blood Culture - Preliminary Blood NO GROWTH AFTER 72 HOURS 05/24/23 10:20 Blood Culture - Preliminary Blood NO GROWTH AFTER 72 HOURS Discharge Plan Discharge Disposition: Home, Self-Care Date of Admission: 05/20/23 11:22 Attending Provider on Discharge: Emy Velasquez Consulting Providers: Samina Quiroz; Luli Cardona; Mckenzie Kumar; Cal River; Young Ansari; Danica Jewell; Hazel Durham; Tea Gonzales; Cee Pires Primary Care Provider: Andrew Rodríguez Condition: Improved Anticipated Discharge Date/Time: 05/28/23 09:51 Discharge Medications: New vancomycin 125 mg Capsule 125 mg PO QID 6 Days Qty: 24 0RF valsartan 80 mg Tablet 320 mg PO DAILY Qty: 30 0RF Continued quetiapine 300 mg tablet 300 mg PO HS dexamethasone 4 mg tablet 8 mg PO DAILY PRN Rx Instructions: DAYS 2, 3, 4 OF CYCLE 1-4 amlodipine 5 mg tablet 5 mg PO DAILY loratadine [Claritin] 10 mg tablet 10 mg PO DAILY lidocaine-prilocaine 2.5-2.5 % cream 5 g topical DAILY PRN Rx Instructions: PRIOR TO PORT ACCESS prochlorperazine maleate 5 mg tablet 5 mg PO Q6H PRN (Reason: nausea/vomiting) ondansetron HCl 8 mg tablet 8 mg PO Q8H PRN (Reason: nausea/vomiting) gabapentin 300 mg capsule 300 mg PO HS PRN Systane Complete 0.6 % drops 1 drp ophthalmic (eye) QID PRN (Reason: dry eyes) allopurinol 100 mg tablet 200 mg PO DAILY Qty: 60 0RF omeprazole 20 mg capsule,delayed release(DR/EC) 20 mg PO DAILY Qty: 90 3RF amiodarone 200 mg tablet 200 mg PO DAILY Qty: 30 1RF levothyroxine 137 mcg tablet 137 mcg PO DAILY Qty: 30 7RF Saccharomyces boulardii 250 mg capsule 250 mg PO BID Qty: 60 12RF atorvastatin 40 mg tablet 40 mg PO HS Qty: 90 1RF Discontinued valsartan 320 mg tablet 320 mg PO DAILY Discharge Orders: Discharge Order (Routine); Ordered 05/28/23 Ordered By: Emy Velasquez Patient Education: Vancomycin (By injection), Vancomycin (By mouth), C. Diff (Clostridioides Difficile) Infection (DC) Additional Instructions: You have 2 more doses of IV vancomycin. These will be completed at the Infusion Center ([facility]) on May 28 and May 29 at 10:30 a.m.. Your IV will be removed after your last dose on the . Continue oral Vancomycin four times/day for your C-Diff infection. Your last day to take this is May 29 (you will have more pills than this as it was sent to the pharmacy last week). Do not take any more after the . Continue your probiotic once/day as well. Work on eating a banana once/day for your potassium, other good foods to eat while you're recovering: white rice, potatoes, nondairy yogurt, peanut butter. You will continue to take your valsartan (disregard the discharge medication list). We initially held it here since your blood pressure was on the low side during the first part of your stay. See Dr. Ansari's team to discuss goals of care and what would be best for YOUR quality of life. Restart Home Health: we will also add home health PT, OT, and aide. Activity Level: Activity as Tolerated Discharge Diet: Regular Diet Detail: low fiber Follow Up Appointments: Andrew Rodríguez MD [Primary Care Provider] - 06/05/23 (Post hospital follow-up bacteremia, C difficile diarrhea, UTI) Claudette Ansari MD [Referring] - 05/31/23 (Post hospital follow up this week at [facility] ) Forms: Info Assemblyth Info Instructions Discharge Comments: resume HH care with nursing, add PT/OT/Home health aide
[2023-05-28] MEDS: SODIUM CHLORIDE 0.9 % (FLUSH) 10 ML SYRINGE 5 ML IVF (11:17)
[2023-05-28] MEDS: NYSTATIN CREAM 30 GM 1 APPLIC TOPICAL (11:18)
--- NOTE | 2023-05-28 14:38 | PC.NURSE ---
End of shift-- Very pleasant and cooperative, alert and oriented patient was discharged to home via wheelchair with . VSS and pt is afebrile. SPO2 maintained >90% on RA. She denied any pain. LS clear but diminished. She denied nausea and ate a regular breakfast but declined lunch. She was up to the BR with SBA and tolerated it fair. She did become mildly SOB as per her baseline. Discharge education was provided including diagnosis info, symptoms to report, medications and follow up plan. No further questions asked. SL was intact and patent, but oozing blood at site and so was discontinued with tip intact.
== END 2023-05-28 13:32 | disposition home or self-care (01) | DRG 372 ==
LOC: ED 08:43 → MEDSURG 11:08
PROVIDERS: Physician Assistant; Admitting Provider Family Medicine; Emergency Provider Emergency Medicine; PCP Family Medicine; Visit Provider Family Medicine
DX: A04.72 Enterocolitis due to Clostridium difficile, not specified as recurrent (principal); C34.92 Malignant neoplasm of unspecified part of left bronchus or lung; R78.81 Bacteremia; Z16.11 Resistance to penicillins; Z16.24 Resistance to multiple antibiotics; I50.32 Chronic diastolic (congestive) heart failure; K57.32 Diverticulitis of large intestine without perforation or abscess without bleeding; N39.0 Urinary tract infection, site not specified; B95.7 Other staphylococcus as the cause of diseases classified elsewhere; B96.20 Unspecified Escherichia coli [E. coli] as the cause of diseases classified elsewhere; B96.1 Klebsiella pneumoniae [K. pneumoniae] as the cause of diseases classified elsewhere; K52.89 Other specified noninfective gastroenteritis and colitis; K62.89 Other specified diseases of anus and rectum; E86.0 Dehydration; D70.1 Agranulocytosis secondary to cancer chemotherapy; T45.1X5A Adverse effect of antineoplastic and immunosuppressive drugs, initial encounter; D50.9 Iron deficiency anemia, unspecified; R82.79 Other abnormal findings on microbiological examination of urine; G47.33 Obstructive sleep apnea (adult) (pediatric); E11.40 Type 2 diabetes mellitus with diabetic neuropathy, unspecified; I48.91 Unspecified atrial fibrillation; Z79.01 Long term (current) use of anticoagulants; I11.0 Hypertensive heart disease with heart failure; J44.9 Chronic obstructive pulmonary disease, unspecified; K21.9 Gastro-esophageal reflux disease without esophagitis; E03.9 Hypothyroidism, unspecified; I05.2 Rheumatic mitral stenosis with insufficiency; M47.816 Spondylosis without myelopathy or radiculopathy, lumbar region; Z90.2 Acquired absence of lung [part of]; K76.0 Fatty (change of) liver, not elsewhere classified; Z95.3 Presence of xenogenic heart valve; Z87.11 Personal history of peptic ulcer disease; F32.9 Major depressive disorder, single episode, unspecified; Z87.442 Personal history of urinary calculi; Z98.890 Other specified postprocedural states
CPT/HCPCS: 36415; 36430; 74177; 80048; 80053; 80202; 81001; 83605; 83735; 84443; 84484; 85025; 85027; 86850; 86900; 86901; 86922; 87040; 87045; 87046; 87070; 87081; 87086; 87186; 87427; 87493; 93005; 93306; 97110; 97116; 97161; 97165; 97530; 97535; 99284; 99285; A9270; J1335; J1642; J1650; J1940; J3370; J7030; J7050; P9016; Q9967

== ENCOUNTER 2023-05-30 10:30 | Outpatient (RCR) | payer MEDICARE, SELFPAY ==
--- NOTE | 2022-12-18 13:53 | URNOTE ---
Request received for authorization forОльга ([id number]). Prior authorization is not required per [facility] Injectable Drug Prior Authorization List.
[2022-12-20 11:13] VITALS: BP 138/77; PULSE 58; RESP 16; TEMP 36.1; O2SAT 96
[2022-12-20] MEDS: IRON SUCROSE COMPLEX 200 MG in 0.9 % SODIUM CHLORIDE 100 ml 440 MG IVPB (11:45)
[2022-12-20 12:05] VITALS: BP 139/58; PULSE 52; RESP 20; TEMP 36.6; O2SAT 96
[2022-12-24 09:08] VITALS: BP 157/59; PULSE 51; RESP 16; TEMP 35.9; O2SAT 98
[2022-12-24] MEDS: SODIUM CHLORIDE 0.9 % (FLUSH) 10 ML SYRINGE IVF (09:30)
[2022-12-24] MEDS: 0.9 % SODIUM CHLORIDE 250 ml IV (09:30)
[2022-12-24] MEDS: IRON SUCROSE COMPLEX 200 MG in 0.9 % SODIUM CHLORIDE 100 ml 440 MG IVPB (09:34)
[2022-12-24 09:55] VITALS: BP 162/55; PULSE 46; RESP 16; TEMP 36.4; O2SAT 96
[2022-12-24 10:25] VITALS: BP 143/59; PULSE 45; RESP 18; O2SAT 95
[2022-12-26 09:02] VITALS: BP 120/44; PULSE 50; RESP 16; TEMP 35.9; O2SAT 96
[2022-12-26] MEDS: 0.9 % SODIUM CHLORIDE 250 ml IV (09:24)
[2022-12-26] MEDS: IRON SUCROSE COMPLEX 200 MG in 0.9 % SODIUM CHLORIDE 100 ml 440 MG IVPB (09:24)
[2022-12-26] MEDS: SODIUM CHLORIDE 0.9 % (FLUSH) 10 ML SYRINGE IVF (09:24)
[2022-12-26 10:11] VITALS: BP 141/76; PULSE 46; RESP 16; TEMP 36.6; O2SAT 98
[2022-12-28 09:08] VITALS: BP 105/60; PULSE 53; RESP 16; TEMP 36.7; O2SAT 96
[2022-12-28] MEDS: 0.9 % SODIUM CHLORIDE 250 ml IV (09:40)
[2022-12-28] MEDS: SODIUM CHLORIDE 0.9 % (FLUSH) 10 ML SYRINGE IVF (09:40)
[2022-12-28] MEDS: IRON SUCROSE COMPLEX 200 MG in 0.9 % SODIUM CHLORIDE 100 ml 440 MG IVPB (09:40)
[2022-12-28 10:10] VITALS: BP 122/67; PULSE 94; RESP 16; TEMP 36.9; O2SAT 94
[2022-12-28 10:30] VITALS: BP 129/46; PULSE 48; RESP 16; TEMP 36.2; O2SAT 96
[2023-01-01] MEDS: IRON SUCROSE COMPLEX 200 MG in 0.9 % SODIUM CHLORIDE 100 ml 440 MG IVPB (10:00)
[2023-01-01] MEDS: SODIUM CHLORIDE 0.9 % (FLUSH) 10 ML SYRINGE IVF (10:02)
[2023-01-01] MEDS: 0.9 % SODIUM CHLORIDE 250 ml IV (10:02)
[2023-01-01 10:04] VITALS: BP 164/75; PULSE 59; RESP 18; TEMP 36.2; O2SAT 94
[2023-01-01 10:23] VITALS: BP 153/66; PULSE 50; RESP 16; TEMP 36.3; O2SAT 96
[2023-01-01 11:01] VITALS: BP 144/69; PULSE 50; RESP 16; TEMP 36.2; O2SAT 96
[2023-05-29 11:32] VITALS: BP 160/75; PULSE 70; RESP 16; TEMP 36.4; O2SAT 94
[2023-05-30 11:00] VITALS: BP 147/61; PULSE 79; RESP 16; TEMP 36.4; O2SAT 95
[2023-05-30] MEDS: SODIUM CHLORIDE 0.9 % (FLUSH) 10 ML SYRINGE IVF (11:00)
--- NOTE | 2023-05-30 12:15 | PC.NURSE ---
Pt present at [facility] for her final Vancomycin infusion. RN noted that the old port site still had a bandage on it. As I was going to look up notes re: instructions on the dressing pt's hospitalist, Dr. Velasquez called and gave RN instructions to remove the dressing. This was done. Incision is covered with steri strips. Site looks good without redness, warmth, or oozing. Site is bruised which is to be expected. RN advised pt to shower as normal and trim strips as they peel up. Support offered. IV removed and pt discharged.
== END 2023-06-18 23:59 | disposition home or self-care (01) ==
LOC: CCIC 10:30
PROVIDERS: PCP Family Medicine; Referring Provider Family Medicine; Visit Provider Family Medicine
DX: D50.9 Iron deficiency anemia, unspecified (principal)
CPT/HCPCS: 96365; 96374; J1756; J3370; J7050

== ENCOUNTER 2023-06-10 07:57 | Outpatient (CLI) | payer OTHER, SELFPAY | END 2023-06-10 07:58 | disposition home or self-care (01) | LOC: WOUND 07:57 | PROVIDERS: PCP Family Medicine; Visit Provider Physician Assistant | DX: L89.893 Pressure ulcer of other site, stage 3 (principal) | CPT/HCPCS: 11042; G0463 ==

== ENCOUNTER 2023-06-17 12:57 | Outpatient (CLI) | payer OTHER, SELFPAY | END 2023-06-17 12:58 | disposition home or self-care (01) | LOC: WOUND 12:57 | PROVIDERS: PCP Family Medicine; Visit Provider Nurse Practitioner Family | DX: L89.893 Pressure ulcer of other site, stage 3 (principal); E11.40 Type 2 diabetes mellitus with diabetic neuropathy, unspecified | CPT/HCPCS: 97602; G0463 ==

== ENCOUNTER 2023-07-01 12:54 | Outpatient (CLI) | payer MEDICARE, SELFPAY ==
--- OUTSIDE RECORDS SUMMARY | 2023-07-01 12:57 | XMS_ITS | Referral Summary ---
Author Name Unknown Organization [facility] Address [address] [place] [id number] Care Team Providers Care Sail Finisher Hand Name Role Phone Unavailable Primary Care Provider Unavailabl e Source Comments Patient records contain information from all sites at [facility]. For routine questions regarding patient records, call [phone] during business hours, M-F 8:00 AM - 5:00 PM Central Time. Record requests for emergency care only can be directed to [phone] at any time.[facility] Encounters Date Type Department Care Team Description 04/29/2023 9:07 AM SUPPORT WORKER - 04/29/2023 11:15 AM [facility] Hospital Encounter Department of Radiation Oncology in [address] [id number] Radha Radford M.D. Malignant Neoplasm Of Unspecified Part Of Left Bronchus Or Lung (HCC) (Primary Dx); Secondary Malignant Neoplasm Lymph Node (HCC) 04/19/2023 Tumor Board Conference Department of Radiation Oncology in [address] [id number] Radha Radford M.D. from Last 3 Months Allergies Active Allergy Reactions Criticality Noted Date Comments Penicillins Angioedema (Reselect Reaction),Hives (Reselect Reaction) High 04/02/2018 Medications Medication Sig Dispensed Refills Start Date End Date Status allopurinoL (ZYLOPRIM) 100 mg tablet Take 200 mg by mouth daily. Active ALPRAZolam (XANAX) 0.5 mg tablet Take 1 tablet by mouth as needed. 01/14/2018 Active ARIPiprazole (ABILIFY) 5 mg tablet Take 5 mg by mouth daily. 10/06/2019 Active atorvastatin (LIPITOR) 40 mg tablet Take 1 tablet by mouth daily. 03/26/2018 Active cholecalciferol, vitamin D3, 1,000 Unit tablet Take 1,000 Units by mouth daily. Active DULoxetine (CYMBALTA) [address] capsule Take 20 mg by mouth daily. 10/06/2019 Active DULoxetine (CYMBALTA) [address] capsule Take 60 mg by mouth daily. 10/06/2019 Active polysaccharide iron complex (Ferrex 150) 150 mg iron capsule Take 1 capsule by mouth. 02/07/2018 Active levothyroxine (SYNTHROID, LEVOTHROID) 137 mcg tablet Take 137 mcg by mouth. 02/26/2018 Active metFORMIN (GLUCOPHAGE) 500 mg tablet Take 500 mg by mouth 2 (two) times a day. 05/07/2018 Active multivitamin-mineral s-lutein (CENTURY MATURE) tablet Take 1 tablet by mouth daily. Active potassium citrate (UROCIT-K) 10 mEq (1,080 mg) ER tablet Take 10 mEq by mouth 2 (two) times a day. 05/06/2019 Active aspirin 325 mg tablet Take 325 mg by mouth every 6 (six) hours as needed for pain. Active clopidogreL (PLAVIX) 75 mg tablet Take 75 mg by mouth daily. Active metoprolol succinate (TOPROL-XL) 25 mg 24 hr tablet Take 25 mg by mouth daily. Do not crush or chew. Active buPROPion XL (WELLBUTRIN XL) 300 mg 24 hr tablet Take 300 mg by mouth daily. Active acetaminophen (TYLENOL) 500 mg tablet Take 1,000 mg by mouth. 10/31/2016 Active amiodarone (PACERONE) 200 mg tablet 200mg 1/day 12/19/2021 Active amLODIPine (NORVASC) 5 mg tablet Take 5 mg by mouth daily. 03/17/2023 Active loperamide (IMODIUM A-D) 2 mg capsule Take 4mg by mouth with 1st loose stool, then 2mg with each subsequent loose stool. Max 16 mg in 24 hrs 06/07/2021 Active nystatin (MYCOSTATIN) 100,000 unit/gram cream Apply topically at bedtime. 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, cM0) - Unsigned Social History Tobacco Use Types Packs/Day Years Used Date Smoking Tobacco: Former Cigarettes 1983 Smokeless Tobacco: Never Tobacco Cessation:Counseling Given: Not Answered Alcohol Use Standard Drinks/Week Comments Not Currently 0 (1 standard drink = 0.6 oz pur e alcohol) Nutrition Answer Date Recorded Nutrition: EVOO Fat Source Unknown 05/16 Nutrition: Servings of Fruits/Vegetables per Day Not on file 05/16/2020 Dental Answer Date Recorded Dental: Regular Dentist Unknown 05/17/19 Sex and Gender Information Value Date Recorded Sex Assigned at Not on file Gender Identity Not on file Sexual Orientation Not on file Last Filed Vital Signs Vital Sign Reading Time Taken Comments Blood Pressure 135/44 04/29/2023 9:23 AM SUPPORT WORKER Pulse 76 04/29/2023 9:23 AM SUPPORT WORKER Temperature 36.1 ??C (97 ??F) 04/29/2023 9:23 AM SUPPORT WORKER Respiratory Rate - - Oxygen Saturation - - Inhaled Oxygen Concentration - - Weight 83.1 kg (183 lb 3.2 oz) 04/29/2023 9:23 A M SUPPORT WORKER Height - - Body Mass Index - - Plan of Treatment Not on file Medical Devices Implanted Type Area Swager Operator Device Identifier Shelf Expiration Date Model / Serial / Lot Stent Other Stent Other Heart Procedures Procedure Name Priority Date/Time Associated Diagnosis Comments OUTSIDE MR NEURO Routine 04/23/2023 1:15 PM SUPPORT WORKER OUTSIDE DX CHEST Routine 04/09/2023 11:4 5 AM SUPPORT WORKER OUTSIDE DX CHEST Routine 04/09/2023 12:0 0 AM SUPPORT WORKER EXTI GLUCOSE POCT, B Routine 04/08/2023 1:27 PM SUPPORT WORKER OUTSIDE XA Routine 04/08/2023 8:15 AM SUPPORT WORKER OUTSIDE CT BODY Routine 04/08/2023 5:40 AM SUPPORT WORKER EXTI THYROID-STIMULATING HORMONE-SENSITIVE (S-TSH), S Routine 12/19/2021 2:04 PM CDT from Last 3 Months or Most Recently Relevant to Health Maintenance Results * MR HEAD BRAIN WWO-Outside MR Neuro (04/23/2023 1:15 PM SUPPORT WORKER) Narrative IIMS - 04/29/2023 10:43 AM SUPPORT WORKER This order has been created and auto-finalized to support the import of outside images. If available, original interpretation can be found on the Media Tab in Chart Review, in Document Viewer, or as an image in QREADS. If a re-interpretation or overread is required please follow defined workflow. ?? Provider Not In System IMG MRI PROCEDURE S Performing Organization Address [facility] de Phone Number IIMS NA * XR Chest 1 View Portable-Outside Chest Xray (04/09/2023 11:45 AM SUPPORT WORKER) Only the most recent of2 resultswithin the time period is included. Narrative IINM - 04/16/2023 11:59 AM SUPPORT WORKER This order has been created and auto-finalized to support the import of outside images. If available, original interpretation can be found on the Media Tab in Chart Review, in Document Viewer, or as an image in QREADS. If a re-interpretation or overread is required please follow defined workflow. ?? Provider Not In System IMG DIAGNOSTIC IM AGING PROCEDURES Performing Organization Address [facility] de Phone Number [facility]S NA * XR FLUORO BRONCHOSCOPY-Outside XA (04/08/2023 8:15 AM SUPPORT WORKER) Narrative IINM - 04/16/2023 11:58 AM SUPPORT WORKER This order has been created and auto-finalized to support the import of outside images. If available, original interpretation can be found on the Media Tab in Chart Review, in Document Viewer, or as an image in QREADS. If a re-interpretation or overread is required please follow defined workflow. ?? Provider Not In System IMG NON RAD IMAGI NG PROCEDURES Performing Organization Address [facility] de Phone Number [facility]IMS NA * CT CHEST WO-Outside CT Body (04/08/2023 5:40 AM SUPPORT WORKER) Narrative YAQUELIN - 04/16/2023 12:07 PM SUPPORT WORKER This order has been created and auto-finalized to support the import of outside images. If available, original interpretation can be found on the Media Tab in Chart Review, in Document Viewer, or as an image in QREADS. If a re-interpretation or overread is required please follow defined workflow. ?? Provider Not In System IMG CT PROCEDURES IIMS NA from Last 3 Months or Most Recently Relevant to Health Maintenance
--- OUTSIDE RECORDS SUMMARY | 2023-07-01 12:57 | XMS_ITS | Data Portability ---
Author Name Unknown Address [address] [place] [address] Phone [phone] Organization [facility], [facility] Address [address] [place] [address] Care Team Providers Care Packer Fuser Name Role Phone SAL RODRIGUES Primary Care Provider [phone] Assessment Encounter Date Assessment Date Assessment LastModified by Organization Details LastModified Time 11/30/2021 11/30/2021 81 year old female with history of kidney stones and kidney disease. Patient more so had questions regarding her kidney disease. I explained that her primary care should refer her to a patient representative if necessary. I encouraged her to speak to her PCP about this. In terms of her kidney stones, CT from May was negative for any stones and she denies any symptoms. Lastly she has chronic stress and urge incontinence. We discussed kegel exercises and she will follow up with Dr. Adame in December for further evaluation and management. Not available 11/30/2021 11:56:16 Plan of Treatment Reminders Order Date Submit Date Provider Last Modified By Organization Details Last Modified Time Details Appointments None recorded. Lab urinalysis , dipstick 2021 022 [facility], [address], [address], [place], [address], 13:05:21 Referral None recorded. Procedures None recorded. Surgeries None recorded. Imaging None recorded. Medication Orders None recorded. Patient TargetsNo targets recorded. Patient InstructionsNo instructions recorded. Reason for Referral None Reported. Results Created Date Observation Date Name Description Value Unit Range Abnormal Flag LastModifiedBy Organization Detail LastModifiedTime 12/01/19 22 11/30/2021 UA DIP CS ADVAN TUS color -advantus yellow yellow Not Available [facility] [address], [place], [address], 11/30/2021 13:05:21 12/01/19 22 11/30/2021 UA DIP CS ADVAN TUS appearance -advantus SL cloudy clear abnormal Not Available [facility] [address] [place] [address] [address], [place], [address], 11/30/2021 13:05:21 12/01/19 22 11/30/2021 UA DIP CS ADVAN TUS glucose -advantus 500 mg/dL negati ve abnormal Not Available [facility] [address] [place] [address], [place], [address], 11/30/2021 13:05:21 12/01/19 22 11/30/2021 UA DIP CS ADVAN TUS bilirubin -advantus negati ve negati ve Not Available [facility] [address] [place] [address], [place], [address], 11/30/2021 13:05:21 12/01/19 22 11/30/2021 UA DIP CS ADVAN TUS ketones -advantus negati ve mg/dL negati ve Not Available [facility] [address] [place] [address], [place], [address], 11/30/2021 13:05:21 12/01/19 22 11/30/2021 UA DIP CS ADVAN TUS sp. gravity -advantus 1.020 1.010- 1.025 Not Available [facility] [address] [place] [address] [address], [place], [address], 11/30/2021 13:05:21 12/01/19 22 11/30/2021 UA DIP CS ADVAN TUS pH -advantus 6.0 5.0-8. 0 Not Available [facility] [address], [place], [address], 11/30/2021 13:05:21 12/01/19 22 11/30/2021 UA DIP CS ADVAN TUS protein -advantus negati ve mg/dL negati ve Not Available [facility] [address], [place], [address], 11/30/2021 13:05:21 12/01/19 22 11/30/2021 UA DIP CS ADVAN TUS urobilinogen -advantus 0.2 normal Not Available [facility] [address], [place], [address], 11/30/2021 13:05:21 12/01/19 22 11/30/2021 UA DIP CS ADVAN TUS nitrites -advantus negati ve negati ve Not Available [facility] [address] [place] [address], [place], [address], 11/30/2021 13:05:21 12/01/19 22 11/30/2021 UA DIP CS ADVAN TUS blood -advantus negati ve negati ve Not Available [facility] [address] [place] [address], [place], [address], 11/30/2021 13:05:21 12/01/19 22 11/30/2021 UA DIP CS ADVAN TUS leukocytes -advantus modera te negati ve abnormal Not Available [facility] [address] [place] [address], [place], [address], 11/30/2021 13:05:21 12/01/19 22 11/30/2021 UA DIP CS ADVAN TUS performed by kian Wasserman Not Available [facility] [address] [place] [address], [place], [address], 11/30/2021 13:05:21 12/01/19 22 11/30/2021 UA DIP CS ADVAN TUS total urine volume (mL) 10 /mL Not Available [facility] [address], [place], [address], 11/30/2021 13:05:21 12/01/19 22 11/30/2021 UA MICRO SCOPI C U-WBC 10 - 25 [hpf] 0 - 2 abnormal Not Available [facility] [address] [place] [address] [address], [place], [address], 11/30/2021 13:05:27 12/01/19 22 11/30/2021 UA MICRO SCOPI C U-RBC 0 - 2 [hpf] 0 - 2 Not Available [facility] [address] [place] [address], [place], [address], 11/30/2021 13:05:27 12/01/19 22 11/30/2021 UA MICRO SCOPI C bacteria modera te [hpf] negati ve abnormal Not Available [facility] [address] [place] [address] [address], [place], [address], 11/30/2021 13:05:27 12/01/19 22 11/30/2021 UA MICRO SCOPI C squamous epi modera te /lpf negati ve,sma ll abnormal Not Available [facility] [address] [place] [address] [address], [place], [address], 11/30/2021 13:05:27 12/01/19 22 11/30/2021 URINE CULTU RE final report microb iology result s Not Available [facility] [address] [place] [address] [address], [place], [address], 12/02/2021 10:00:13 11/02/19 22 06/07/2021 CT, abdom en + pelvi s, w/ contr ast No observ ation record ed. Not Available 11/01/2021 13:49:20 Result Notes None recorded. Procedures Surgical History Date Name Laterality Status Provider Name and Address Organization Details Recorded Time 09/30/19 Occult blood feces completed Not Available Health Note 11/28/2021 12:18:35 03/18/[address] colonography screening completed Not Available Health Note 11/28/2021 12:18:35 08/17/19 19 Diagnostic colonoscopy completed Not Available Health Note 11/28/2021 12:18:35 Excise epiphyseal bar completed Not Available Health Note 11/28/2021 12:18:35 Insert epicard eltrd open completed Not Available Health Note 11/28/2021 12:18:35 Total hysterectomy completed Not Available Health Note 11/28/2021 12:18:35 Fragmenting of kidney stone completed Not Available Health Note 11/28/2021 12:18:35 Imaging Results Imaging Date Name Status LastModified by Organiz ation Details LastModified Time 06/07/2021 CT, abdomen + pelvis, w/ contrast completed Information not available 11/01/2021 13:49:20 Procedure Notes None recorded. Medical Equipment None Reported. Allergies Allergen ID Allergen Name Allergen Category Reaction Reaction Severity Criticality Documentation Date Start Date Code Code System Note Provider Name and Address Organization Details Recorded Time 140835 Medicinal product containin g penicilli n and acting as antibacte rial agent (product) medicatio n hives Not available Not available 11/04/2021 61562 05 SNOMED swell ing and hives Not Available Health Note 12:18:34 Medications Name Sig Start Date Stop Date Status Note LastModified by Organization Details LastModified Time atorvasta tin 40 mg tablet 40mg 1/day active Not Available Not Available No t Available metformin 500 mg tablet TAKE 1 TABLET BY MOUTH TWICE A DAY WITH MEALS active HN: Patient reports no longer taking Not Available Not Available Not Available levothyro xine 137 mcg tablet TAKE 1 TABLET BY MOUTH EVERY DAY active Not Available Not Available No t Available amiodaron e 200 mg tablet 200mg 1/day active Not Available Not Available No t Available metoprolo l succinate ER 50 mg tablet,ex tended release 24 hr TAKE 1 TABLET BY MOUTH EVERY DAY active HN: Patient reports no longer taking Not Available Not Available Not Available polysacch aride iron complex 150 mg iron capsule TAKE 1 TABLET DAILY 5 DAYS A WEEK active Not Available Not Available No t Available torsemide 10 mg tablet 10mg 1/day active Not Available Not Available No t Available allopurin ol 100 mg tablet 100mg 2/day active Not Available Not Available No t Available lamotrigi ne 25 mg tablet TAKE 1 TABLET BY MOUTH EVERYDAY AT BEDTIME active Not Available Not Available No t Available meclizine 25 mg tablet TAKE 1 TABLET BY MOUTH EVERY 8 HOURS NEEDED 11/30 completed HN: Patient reports no longer taking Not Available Not Available Not Available potassium citrate ER 10 mEq (1,080 mg) tablet,ex tended release TAKE 10 MEQ ORALLY TWICE A DAY 11/30 completed HN: Patient reports no longer taking Not Available Not Available Not Available furosemid e 20 mg tablet TAKE 1 TABLET BY MOUTH TWICE A DAY active Not Available Not Available No t Available metoprolo l succinate ER 25 mg tablet,ex tended release 24 hr TAKE 1 TABLET BY MOUTH EVERY DAY 11/30 completed HN: Patient reports no longer taking Not Available Not Available Not Available metformin ER 500 mg tablet,ex tended release 24 hr TAKE 2 TABLETS BY MOUTH DAILY active HN: Patient reports no longer taking Not Available Not Available Not Available aripipraz ole 10 mg tablet TAKE 1 TABLET BY MOUTH EVERYDAY AT BEDTIME active Not Available Not Available No t Available aripipraz ole 5 mg tablet TAKE 1.5 TABLETS (7.5 MG) BY MOUTH ONCE DAILY. 11/30 completed HN: Patient reports no longer taking Not Available Not Available Not Available bupropion HCl XL 300 mg 24 hr tablet, extended release TAKE 1 TABLET BY MOUTH EVERY MORNING active Not Available Not Available No t Available duloxetin e 20 mg capsule,d elayed release TAKE 1 CAPSULE (20 MG) BY MOUTH ONCE DAILY. IN THE EVENING. 11/30 completed HN: Patient reports no longer taking Not Available Not Available Not Available duloxetin e 60 mg capsule,d elayed release TAKE 1 CAPSULE ONCE DAILY IN THE MORNING. TAKE 20MG CAPSULE IN THE EVENING (TOTAL DAILY DOSE 80MG). 11/30 completed HN: Patient reports no longer taking Not Available Not Available Not Available potassium citrate 10meq 2/day active Not Available Not Available No t Available aripipraz ole 10 mg disintegr ating tablet 10mg 1/day 11/30 completed HN: Patient reports no longer taking Not Available Not Available Not Available Januvia 100 mg tablet 100mg 1/day active Not Available Not Available No t Available bupropion HBr 300 mg 1/day active Not Available Not Available No t Available lamotrigi ne 25 mg (21)-50 mg (7) tablet,di sintegrat ing, pack 25mg 1/day active Not Available Not Available No t Available Eliquis 5 mg tablet TAKE 1 TABLET BY MOUTH TWICE A DAY active Not Available Not Available No t Available duloxetin e 40 mg capsule,d elayed release TAKE 1 CAPSULE BY MOUTH 2 TIMES DAILY. 11/30 completed HN: Patient reports no longer taking Not Available Not Available Not Available Vitals Date Recorded Body weight Body height Provider Name and Address Organization Details Last Updated DateTime 11/30/2021 65203.18 g 152.[facility] 11/30/2021 11:15:56 Date Recorded Body mass index (BMI) Provider Name and Address Organization Details Last Updated DateTime 11/30/2021 36.3 kg/m2 Not Available Health Note 11/30/2021 10:58:51 Social History Question Answer Notes LastModified by Organizat ion Details LastModified Time Tobacco Smoking Status Former Smoker Not Available Health Note 11/28/2021 12:18:35 What Is Your Level Of Alcohol Consumption? None Information not available 11/30/2021 What Is Your Level Of Caffeine Consumption? Occasional [email or web address] Information not available 11/28/2021 How Much Tobacco Do You Chew? None [email or web address] Information not available 11/28/2021 Are You Currently Employed? No Information not available 11/30/2021 Do You Or Have You Ever Used E-cigarettes Or Vape? Never Used Electronic Cigarettes [email or web address] Information not available 11/28/2021 When Did You Quit Smoking? 16+ Years Since Last Cigarette [email or web address] Information not available 11/28/2021 Race White Information no t available 11/30/2021 Ethnicity Not /Latin o Information not available 11/30/2021 Preferred Language Citizen Of [place] Information not available 11/30/2021 Number Of Pregnancies 3 [email or web address] Information not available 11/04/2021 Number Of Vaginal Deliveries 3 [email or web address] Information not available 11/04/2021 Number Of Caesarean Sections 0 [email or web address] Information not available 11/04/2021 Recreational Drug Use No Information not available 11/30/2021 What Was The Date Of Your Most Recent Tobacco Screening? 11/30/2021 [email or web address] Information not available 11/28/2021 What Is Your Relationship Status? [email or web address] Information not available 11/28/2021 Are You Sexually Active? No [email or web address] Information not available 11/28/2021 Do You Or Have You Ever Used Smokeless Tobacco? Never Used Smokeless Tobacco [email or web address] Information not available 11/28/2021 Do You Use Any Illicit Or Recreational Drugs? No [email or web address] Information not available 11/28/2021 Has Tobacco Cessation Counseling Been Provided? No Information not available 11/30/2021 How Many Years Have You Smoked Tobacco? 20 [email or web address] Information not available 11/28/2021 Do You Or Have You Ever Used Any Other Forms Of Tobacco Or Nicotine? No Information not available 11/30/2021 Sex: Female Functional Status None recorded. Mental Status None recorded. Family History Relationship Description Onset Age of this Age Resolved Age Notes Unspecified Relation Family history of diabetes mellitus Father Family history of cardiac disorder Mother Family history of cancer Medical History Condition Response Other N High Blood Pressure Y Kidney Stones Y Lung Disease N Depression Y GERD/Acid Reflux N Sexually Transmitted Infection N Diabetes Y Bleeding Disorder N Cancer N High Cholesterol Y Heart Disease Y Gynecological History Statement/Question Response If Post Menopausal, Age at Menopause 46 Hormone Therapy N Sexually Active? N Obstetrics History GPAL:G 0 P 0 0 0 0 Immunizations Vaccine Type Date Status Provider Name and Address Organization Details Recorded Time SARS-COV-2 (COVID-19) vaccine, UNSPECIFIED 05/02/2021 completed Not Available Health Note 11/04/2021 14:41:26 influenza, unspecified formulation 11/30/2020 completed Not Available Health Note 11/04/2021 14:41:26 pneumococcal, unspecified formulation 11/27/2001 completed Not Available Health Note 11/04/2021 14:41:26 SARS-COV-2 (COVID-19) vaccine, UNSPECIFIED 04/18/2020 completed Not Available Health Note 11/28/2021 12:18:41 influenza, unspecified formulation 11/27/2001 completed Not Available Health Note 11/28/2021 12:18:41 pneumococcal, unspecified formulation 11/17/2019 completed Not Available Health Note 11/28/2021 12:18:41 Past Encounters Encounter ID Performer Location Encounter Start Date Encounter Closed Date Diagnosis/Indication Diagnosis SNOMED-CT Code [id number] Monse Slaughter PA-C Hugh grewal [address] [place] [address],[address] [address] 11/30/2021 10:56:09 11/30/2021 12:06:56 History of calculus of kidney [id number] Health Concerns Section Related Observation LastModified by Organization Detai ls LastModified Time None Recorded Concern Status LastModified by Organization Details LastModified Time None Recorded Advance Directives Directive None Recorded Payers Encounter Date Sequence Insurance Name Policy Number Policy Osorio Covered Member ID Osorio Member ID Guarantor Name 11/30/2021 1 [employer] - DOS ON OR AFTER 19 (MEDICARE REPLACEMENT/ ADVANTAGE - HMO) [id number] Annabella Longoria [id number] Annabella Longoria Notes Date Note Type Note Provider Name and Address Organization Details Recorded Time 11/30/2021 text/html HPI Notes: This is a 81 year old female with history of kidney stones here for follow up. She reports recent diagnosis of stage 3 kidney disease. She has a history of kidney stones (s/p ESWL in [place] - 2016), Right ureteroscopy with laser lithotripsy, stone removal on 05/03/18. Stone - 80% Uric acid and 20% Calcium oxalate monohydrate. 24 Hr Urine (05/23/18) - low UO (1.37 L) - low Citrate (113 mg) - low pH (5.0) - normal - Calcium (77 mg) - Oxalate (22 mg) - Mg (71 mg) - Phos (0.589) - Uric acid (0.301) She is on K Citrate [address] of the abdomen and pelvis with contrast was performed on 06/07/21 which revealed no renal masses or stones, no hydronephrosis. 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 She also has complaints of incontinence. This has been going on for years. She denies any recurrent bladder infections. She also complains of stress and urge incontinence. She has an appointment scheduled with Dr. Adame in December for this. She has 3 children, all vaginal deliveries. Monse Slaughter PA-C [address] [place] [address],[address], [place], [address], [facility] 11/30/2021 14:53:43 OBGyn Episode No OBEpisode recorded.
--- OUTSIDE RECORDS SUMMARY | 2023-07-01 12:57 | XMS_ITS | Encounter Summary ---
Author Name Unknown Organization [facility] Address [address] [place] [id number] Care Team Providers Care Fire Technology Instructor Name Role Phone Unavailable Primary Care Provider Unavailabl e Encounter Details Date Type Department Care Team (Late st Contact Info) Description 04/19/2023 Tumor Board Conference Department of Radiation Oncology in [place], [place] [address] [place] [address] Radha Radford M.D. [address] [place] [address] Social History Tobacco Use Types Packs/Day Years Used Date Smoking Tobacco: Former Cigarettes Nutrition Answer Date Recorded Nutrition: EVOO Fat Source Unknown 05/16 Nutrition: Servings of Fruits/Vegetables per Day Not on file 05/16/2020 Dental Answer Date Recorded Dental: Regular Dentist Unknown 05/17/19 21 Sex and Gender Information Value Date Recorded Sex Assigned at Not on file Gender Identity Not on file Sexual Orientation Not on file documented as of this encounter Miscellaneous Notes * Tumor Board Note - Radha Radford M.D. - 04/19/2023 3:22 PM CST MULTIDISCIPLINARY TUMOR BOARD NOTE This patient's case was presented at our multidisciplinary tumor board on 04/19/2023 by Radha Radford. 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 Pathology reviewed: none Discussion: Her case was reviewed at tumor board. We reviewed that she was found at surgery to havea locally advanced adenocarcinoma of the left lower that was resected and PD-L1 positive at 40% with KRAS Q61L mutation. Margins were negative and 2 lymph nodes were involved (1 station 11 and 1 station 7). Recommendation: All agreed to consider adjuvant chemoimmunotherapy provided MRI brain is negative. No indications for adjuvant radiation therapy. There are clinical trials available in [place] if she is interested. We understand that she will be meeting Drs. Ansari and Malina for evaluations. Radha Radford M.D. Note: Tumor board recommendations are developed via multidisciplinary specialty participation with the most current information available at that time, therefore, final treatment plan is to be decided between the patient and the treating physician. T OFFICE SECRETARY documented in this encounter Plan of Treatment Not on file documented as of this encounter Visit Diagnoses Not on filedocumented in this encounter
--- OUTSIDE RECORDS SUMMARY | 2023-07-01 12:57 | XMS_ITS | Clinical Summary ---
Author Name Unknown Organization [facility] Address [address] [place] [id number] Care Team Providers Care Gas Engine Repairer Name Role Phone Unavailable Primary Care Provider Unavailabl e Source Comments Patient records contain information from all sites at [facility]. For routine questions regarding patient records, call [phone] during business hours, M-F 8:00 AM - 5:00 PM Central Time. 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 from Last 3 Months Family History Medical History Relation Name Comments Heart failure Father Vaginal cancer Mother Relation Name Status Comments Father Mother Social History Tobacco Use Types Packs/Day Years Used Date Smoking Tobacco: Former Cigarettes 1 1983 Smokeless Tobacco: Never Tobacco Cessation:Counseling Given: [...] Comments Blood Pressure 135/44 04/29/2023 9:23 AM EMERY WHEEL MOLDER Pulse 76 04/29/2023 9:23 AM EMERY WHEEL MOLDER Temperature 36.1 ??C (97 ??F) 04/29/2023 9:23 AM EMERY WHEEL MOLDER Respiratory Rate - - Oxygen Saturation - - Inhaled Oxygen Concentration - - Weight 83.1 kg (183 lb 3.2 oz) 04/29/2023 9:23 A M EMERY WHEEL MOLDER Height - - Body Mass Index - - Plan of Treatment Health Maintenance Due Date Last Done Comments Zoster Vaccines (1 of 2) 05/13/2012 03/18/2012 Thyroid Stimulating Hormone (TSH) test for thyroid function 12/19/2022 12/19/2021, 03/01/2021 Depression Screening (Annual PHQ-2) 03/18/2023 Fall Risk Screen (Annual) 03/18/2023 Glucose Test for Med Monitoring 04/08/2024 04/08/2023, 06/07/2021, 12/11/2019, Additional history exists DTaP,Tdap,and Td Vaccines (3 - Td or Tdap) 06/08/2028 06/08/2018, 05/01/2013 Pneumococcal vaccine (65+ years) Completed 02/27/2022, 02/21/2022, 11/17/2019, Additional history exists Influenza Vaccine Completed 12/14/2022, , 12/14/2020, Additional history exists COVID-19 Vaccine Completed 01/18/2023, , 01/23/2022, Additional history exists HPV Vaccines Aged Out No longer eligi ble based on patient's age to complete this topic Medical Devices Implanted Type Area Research Pharmacist Device Identifier Shelf Expiration Date Model / Serial / Lot Stent Other Stent Other Heart Procedures Procedure Name Priority Date/Time Associated Diagnosis Comments OUTSIDE MR NEURO Routine 04/23/2023 1:15 PM EMERY WHEEL MOLDER OUTSIDE DX CHEST Routine 04/09/2023 11:4 5 AM EMERY WHEEL MOLDER OUTSIDE DX CHEST Routine 04/09/2023 12:0 0 AM EMERY WHEEL MOLDER EXTI GLUCOSE POCT, B Routine 04/08/2023 1:27 PM EMERY WHEEL MOLDER OUTSIDE XA Routine 04/08/2023 8:15 AM EMERY WHEEL M[employer] OUTSIDE CT BODY Routine 04/08/2023 5:40 AM EMERY WHEEL MOLDER EXTI THYROID-STIMULATING HORMONE-SENSITIVE (S-TSH), S Routine 12/19/2021 2:04 PM CDT from Last 3 Months or Most Recently Relevant to Health Maintenance Results * MR HEAD BRAIN WWO-Outside MR Neuro (04/23/2023 1:15 PM EMERY WHEEL MOLDER) Narrative [facility] - 04/29/2023 10:43 AM EMERY WHEEL MOLDER This order has been created and auto-finalized to support the import of outside images. If available, original interpretation can be found on the Media Tab in Chart Review, in Document Viewer, or as an image in QREADS. If a re-interpretation or overread is required please follow defined workflow. ?? Provider Not In System IMG MRI PROCEDURE S [facility] NA * XR Chest 1 View Portable-Outside Chest Xray (04/09/2023 11:45 AM EMERY WHEEL MOLDER) Only the most recent of2 resultswithin the time period is included. Narrative [facility] - 04/16/2023 11:59 AM EMERY WHEEL MOLDER This order has been created and auto-finalized to support the import of outside images. If available, original interpretation can be found on the Media Tab in Chart Review, in Document Viewer, or as an image in QREADS. If a re-interpretation or overread is required please follow defined workflow. ?? Provider Not In System IMG DIAGNOSTIC IM AGING PROCEDURES Performing Organization Address [facility] de Phone Number [facility] NA * XR FLUORO BRONCHOSCOPY-Outside XA (04/08/2023 8:15 AM EMERY WHEEL MOLDER) Narrative [facility] - 04/16/2023 11:58 AM EMERY WHEEL MOLDER This order has been created and auto-finalized to support the import of outside images. If available, original interpretation can be found on the Media Tab in Chart Review, in Document Viewer, or as an image in QREADS. If a re-interpretation or overread is required please follow defined workflow. ?? Provider Not In System IMG NON RAD IMAGI NG PROCEDURES Performing Organization Address [facility] de Phone Number [facility] NA * CT CHEST WO-Outside CT Body (04/08/2023 5:40 AM EMERY WHEEL MOLDER) Narrative [facility] - 04/16/2023 12:07 PM EMERY WHEEL MOLDER This order has been created and auto-finalized to support the import of outside images. If available, original interpretation can be found on the Media Tab in Chart Review, in Document Viewer, or as an image in QREADS. If a re-interpretation or overread is required please follow defined workflow. ?? Provider Not In System IMG CT PROCEDURES Performing Organization Address [facility] de Phone Number [facility] NA from Last 3 Months or Most Recently Relevant to Health Maintenance
--- OUTSIDE RECORDS SUMMARY | 2023-07-01 12:57 | XMS_ITS | Encounter Summary ---
Author Name Unknown Organization [facility] Address [address] [place] [id number] Care Team Providers Care Licensed Clinician Name Role Phone Unavailable Primary Care Provider Unavailabl e Reason for Visit * Appointment Request (Routine) - Closed Specialty Diagnoses / Procedures Referred By Alicja t Referred To Contact Radiation Oncology Diagnoses Malignant Neoplasm Of Lung Small Cell Left (HCC) Malignant Neoplasm Of Lung Lower Lobe Or Bronchus Left (HCC) Claudette Ansari M.D. [address] [place] [address] Referral ID Status Reason Start Date Expiration Date Visits Re quested Visits Authorized [id number] Closed 04/16/2023 04/15/2024 1 1 Encounter Details Date Type Department Care Team (Latest Contact Info) Description 04/29/2023 9:07 AM PRINTING SERVICES COORDINATOR - 04/29/2023 11:15 AM [facility] Hospital Encounter Department of Radiation Oncology in [place], [place] [address] [place] [id number] Radha Radford M.D. [address] [place] [address] Malignant Neoplasm Of Unspecified Part Of Left Bronchus Or Lung (HCC) (Primary Dx); Secondary Malignant Neoplasm Lymph Node (HCC) Social History Tobacco Use Types Packs/Day Years Used Date Smoking Tobacco: Former Cigarettes 1 - 1983 Smokeless Tobacco: Never Tobacco Cessation:Counseling Given: [...] on file documented as of this encounter Last Filed Vital Signs Vital Sign Reading Time Taken Comments Blood Pressure 135/44 04/29/2023 9:23 AM PRINTING SERVICES COORDINATOR Pulse 76 04/29/2023 9:23 AM PRINTING SERVICES COORDINATOR Temperature 36.1 ??C (97 ??F) 04/29/2023 9:23 AM PRINTING SERVICES COORDINATOR Respiratory Rate - - Oxygen Saturation - - Inhaled Oxygen Concentration - - Weight 83.1 kg (183 lb 3.2 oz) 04/29/2023 9:23 A M PRINTING SERVICES COORDINATOR Height - - Body Mass Index - - documented in this encounter Medications at Time of Discharge Medication Sig Dispensed Refills Start Date End Date acetaminophen (TYLENOL) 500 mg tablet Take 1,000 mg by mouth. 10/31/2016 allopurinoL (ZYLOPRIM) 100 mg tablet Take 200 mg by mouth daily. ALPRAZolam (XANAX) 0.5 mg tablet Take 1 tablet by mouth as needed. 01/14/2018 amiodarone (PACERONE) 200 mg tablet 200mg 1/day 12/19/2021 amLODIPine (NORVASC) 5 mg tablet Take 5 mg by mouth daily. 03/17/2023 ARIPiprazole (ABILIFY) 5 mg tablet Take 5 mg by mouth daily. 10/06/2019 aspirin 325 mg tablet Take 325 mg by mouth every 6 (six) hours as needed for pain. atorvastatin (LIPITOR) 40 mg tablet Take 1 tablet by mouth daily. 03/26/2018 buPROPion XL (WELLBUTRIN XL) 300 mg 24 hr tablet Take 300 mg by mouth daily. cholecalciferol, vitamin D3, 1,000 Unit tablet Take 1,000 Units by mouth daily. clopidogreL (PLAVIX) 75 mg tablet Take 75 mg by mouth daily. DULoxetine (CYMBALTA) [address] capsule Take 20 mg by mouth daily. 10/06/2019 DULoxetine (CYMBALTA) [address] capsule Take 60 mg by mouth daily. 10/06/2019 levothyroxine (SYNTHROID, LEVOTHROID) 137 mcg tablet Take 137 mcg by mouth. 02/26/2018 loperamide (IMODIUM A-D) 2 mg capsule Take 4mg by mouth with 1st loose stool, then 2mg with each subsequent loose stool. Max 16 mg in 24 hrs 06/07/2021 metFORMIN (GLUCOPHAGE) 500 mg tablet Take 500 mg by mouth 2 (two) times a day. 05/07/2018 metoprolol succinate (TOPROL-XL) 25 mg 24 hr tablet Take 25 mg by mouth daily. Do not crush or chew. vljaqrcysvnb-pksuzbxp-pe tein (CENTURY MATURE) tablet Take 1 tablet by mouth daily. nystatin (MYCOSTATIN) 100,000 unit/gram cream Apply topically at bedtime. 09/28/2022 polysaccharide iron complex (Ferrex 150) 150 mg iron capsule Take 1 capsule by mouth. 02/07/2018 potassium citrate (UROCIT-K) 10 mEq (1,080 mg) ER tablet Take 10 mEq by mouth 2 (two) times a day. 05/06/2019 documented as of this encounter Consult Notes * Abbi Salgado APRN, C.N.P., D.N.P. - 04/29/2023 9:30 AM CST SUBJECTIVE REQUESTING PROVIDER Claudette Ansari M.D. REASON FOR CONSULT 1. Malignant Neoplasm Of Unspecified Part Of Left Bronchus Or Lung (HCC) 2. Secondary Malignant Neoplasm Lymph Node (HCC) SUPERVISED BY: Radha Radford M.D. HISTORY OF PRESENT ILLNESS Mrs. Annabella Longoria is a 82 y.o. female former smoker with adenocarcinoma of the left lung.She presents today for an opinion regarding the role of radiation therapy in the management of her disease. Her oncologic history is as follows: Oncology History Malignant Neoplasm Of Unspecified Part Of Left Bronchus Or Lung (HCC) 01/13/2023 Other Patient presented to [facility] Emergency room for right low back pain that has been present for a couple days. Patient was convinced kidney stone was present therefore CT imaging was performed. 01/13/[address] CAP impression: 1. Partially visualized aortic valvular prosthesis. No peripheral soft tissue nodularity around theperiphery of the previously seen cavitary lung lesion. Soft tissue measures 1.4 x 5.4 x 3 cm, suspicious for malignancy. 2. No urinary tract calculi 01/25/[address] chest Findings: The cystic mass within the left lower lobe with surrounding lobular soft tissue densities is similar to 01/13/2023 and increased in solid component compared to 06/07/2021. The cystic area measures 2.3 cm and the lobular soft tissue areas measure approximately 2.4 cm. Linear densities adjacent to this lesion again noted, unchanged from the most recent study. No acute infiltrative changes within the right lung. Small nodular densities in the right midlung are similar to the 12/08/2020 exam, measuring less than 4 mm. Scarring within the right lower lobe. No pneumothorax. Scarring within the lateral left lung is unchanged since 12/08/2020. Mildly prominent mediastinal and right hilar lymph nodes are unchanged since 12/08/2020. Atherosclerotic changes. Postop changes to the aortic valve. No vertebral body compression fracture. Impression: Lobular solid nodular density associated with the previously existing cystic lesion in the left lower lobe with the solid areas measuring up to approximately 2.4 cm. PET-CT recommended for further evaluation prior to consideration of percutaneous biopsy. Stable mildly prominent mediastinal and right hilar lymph nodes, unchanged from 2020. Stable small pulmonary nodules in right lung and stable scarring lateral aspect of left lung 03/07/2023 Critical Imaging PET/CT impression: Cavitary mass lesion in the left lower lobe should be considered malignant until proven otherwise, likely T2b N0 M0 lung cancer. Although lesion would be amenable percutaneous biopsy, the risk for tumor pleural fistula would be relatively high. Recommend thoracic surgical consult 04/03/2023 Other PFTs Pre-treatment: FVC: 2.47 L (126%) FEV1: 1.84 L (128%) DLCO: 14.10 ml/min/mmHg (88%0 No post-treatment values 04/08/[address] Chest Impression: 1. Left lower lobe multilocular air-filled cavity with a large solid component measuring 2.7 x 3.4 3.9 cm worrisome for malignancy. 2. Multiple ground-glass nodules in the right lung, the 6 mm. Several small solid nodules elsewhere. Follow-up to be determined based on the histology of the left lower lobe mass. 04/08/2023 Surgery and Procedures Performed by Dr. Beto Rinaldi: 1) Robotic Navigation Bronchoscopy with Fine Needle Aspiration Biopsy and Forceps Tissue Biopsy of the Left Lower Lobe Mass with Radial Probe, Fluoroscopic and Cios Spin Imaging Assistance 2) Diagnostic Bronchoscopy; Endobronchial Ultrasound (EBUS) with Fine Needle Aspiration Stations 4R, 4L, 7, 11L 3) Left Video Assisted Thorascopic Surgery (VATS), Left Lower Lobectomy, and Thoracic Lymphadenectomy SYNOPTIC REPORTING SPECIMEN Procedure: Lobectomy Specimen Laterality: Left TUMOR Tumor Focality: Single focus Tumor Site: Lower lobe of lung Tumor Size: Total Tumor Size (size of entire tumor): Greatest Dimension (Centimeters): 6.1 cm Additional Dimension (Centimeters): 5.4 cm Additional Dimension (Centimeters): 1.5 cm Size of Invasive Component: Greatest Dimension (Centimeters): 6.1 cm Additional Dimension (Centimeters): 5.4 cm Additional Dimension (Centimeters): 1.5 cm Percentage of Total Tumor Size (above): 99 % Histologic Type: Invasive solid adenocarcinoma Histologic Patterns Present: Acinar: 4 Histologic Patterns Present: Lepidic: 1 Histologic Patterns Present: Solid: 55 Histologic Patterns Present: Micropapillary: 40 Histologic Grade: G3, poorly differentiated Spread Through Air Spaces (RICARDO): Present Visceral Pleura Invasion: Present Direct Invasion of Adjacent Structures: Not applicable (no adjacent structures present) Treatment Effect: No known presurgical therapy Lymphovascular Invasion: Not identified MARGINS Margin Status for Invasive Carcinoma: All margins negative for invasive carcinoma Closest Margin(s) to Invasive Carcinoma: Bronchial Distance from Invasive Carcinoma to Closest Margin: 5.8 cm Margin Status for Non-Invasive Tumor: All margins negative for non-invasive tumor REGIONAL LYMPH NODES Lymph Node(s) from Prior Procedures: Included Prior Lymph Node Procedure(s) Included: Station 4R, station 4L sampled by EBUS immediately before surgery ([id number]). They were negative by EBUS. Stations 7 and 11 L were sampled by EBUS, but those nodes were excised during this surgery and are not double counted. Regional Lymph Node Status: : Tumor present in regional lymph node(s) Number of Lymph Nodes with Tumor: 3 Shree Site(s) with Tumor: 7: Subcarinal Shree Site(s) with Tumor: 11L: Interlobar Shree Site(s) with Tumor: Left: Intra parenchymal Extranodal Extension: Not identified Number of Lymph Nodes Examined: 16 (includes 2 nodes from EBUS procedure) Shree Site(s) Examined: 4R: Lower paratracheal Shree Site(s) Examined: 7: Subcarinal Shree Site(s) Examined: 4L: Lower paratracheal Shree Site(s) Examined: 5: Subaortic / aortopulmonary (AP) / AP window Shree Site(s) Examined: 11L: Interlobar Shree Site(s) Examined: 12L: Lobar Shree Site(s) Examined: Left: 3 intraparenchymal lymph nodes and 1 node in the container from the lung specimen PATHOLOGIC STAGE CLASSIFICATION (pTNM, AJCC 8th Edition) pT Category: pT3 pN Category: pN2 04/08/2023 Biopsy/Pathology Surgical Pathology Final Diagnosis A) Specimen submitted as part of case [id number], see separate report B) LYMPH NODE, STATION 7, SUBCARINAL, RESECTION: 1. Positive for metastatic carcinoma in 1 of 1 lymph node 2. See comment C) LYMPH NODE, STATION 11 L, INTERLOBAR, RESECTION: 1. Positive for metastatic carcinoma in 1 of 2 lymph nodes 2. See comment D) LUNG, LEFT, LOWER LOBE, LOBECTOMY: 1. Invasive adenocarcinoma (solid): a. Size of invasive component: 6.1 cm b. Overall size of the tumor (invasive and non-invasive component): 6.1 cm c. Surgical margins: Negative d. Visceral pleural invasion: Present e. Spread through airspaces (RICARDO): Present 2. Lymph nodes: Positive for metastatic adenocarcinoma in 1 intraparenchymal lymph node (out of a total of 10 lymph nodes associated with the lobectomy), see comment 3. See final stage section below for complete details 4. Additional findings: Emphysema 5. Ancillary testing: a. PD-L1: - Tumor Proportion Score (TPS): 40% (PD-L1 expression, TPS greater than or equal to 1% and less than 50%) - Tumor Cell (TC): 40% (Expression, TC greater than or equal to 1%) b. NGS (lung panel): - Positive for KRAS Q61L mutation; see attached report E) LYMPH NODE, STATION 5, SUBAORTIC, RESECTION: Negative for malignancy (1 benign lymph node) Comment B, C) The foci of metastatic carcinoma in the resected station 7 and station 11L nodes are small, with each focus measuring about 2 mm. The small tumor volume relative to the total lymph node volume would explain why the pre-operative EBUS guided fine-needle aspirations were negative. (Relevant slides from [id number] reviewed and original diagnoses confirmed). D) Regarding the lymph nodes associated with the lobectomy specimen, there were 3 intraparenchymal lymph nodes (probably station 13L or station 14L), 6 peribronchial nodes (station 12L) and 1 node which was in the container but detached from the lung specimen (possibly an additional station 12L node). One of the intraparenchymal lymph nodes was positive for metastatic carcinoma 04/08/2023 Biopsy/Pathology EBUS Final Diagnosis A) LYMPH NODE, STATION 7 SUBCARINAL, ENDOBRONCHIAL ULTRASOUND-GUIDED FINE-NEEDLE ASPIRATION: 1. Negative for malignancy 2. Lympocytes and histiocytes with carbonaceous pigment, consistent with sampled anthracotic lymph node B) LYMPH NODE, STATION 4R LOWER PARATRACHEAL, ENDOBRONCHIAL ULTRASOUND-GUIDED FINE-NEEDLE ASPIRATION: 1. Negative for malignancy 2. Lymphocytes consistent with sampled lymph node 3. Scant cellularity C) LYMPH NODE, STATION 4L LOWER PARATRACHEAL, ENDOBRONCHIAL ULTRASOUND-GUIDED FINE-NEEDLE ASPIRATION: 1. Negative for malignancy 2. Lymphocytes consistent with sampled lymph node 3. Scant cellularity D) LYMPH NODE, STATION 11 L INTERLOBAR, ENDOBRONCHIAL ULTRASOUND-GUIDED FINE- NEEDLE ASPIRATION: 1. Negative for malignancy 2. Lymphocytes consistent with sampled lymph node E) LUNG, LEFT, LOWER LOBE, TRANSBRONCHIAL FINE NEEDLE ASPIRATION AND FORCEPS BIOPSY WITH TOUCH IMPRINTS: 1. Positive for malignancy; poorly differentiated non-small cell carcinoma, consistent with pulmonary primary 2. See comment Comment E) Final classification of the non-small cell carcinoma and appropriate ancillary testing are deferred to the same day pulmonary resection specimen. See [id number]. 04/19/2023 Tumor Board Recommendation: All agreed to consider adjuvant chemoimmunotherapy provided MRI brain is negative. No indications for adjuvant radiation therapy. There are clinical trials available in [place] if she is interested. 04/23/2023 Critical Imaging Brain MRI negative for intracranial metastatic disease 04/29/[address] Ansari INTERVAL HISTORY The patient was seen and examined today with Dr. Radford. The patient reports feeling well overall. She reports good energy and gets around fairly easy both pre and postop. She is able to walk without getting short of breath or experience any difficulty breathing. She denies any chest pain, pressure, or tightness. She denies any pain within the postsurgical area. She denies any fevers or weight loss. The patient denies a history of prior radiation therapy, connective tissue disorders, or inflammatory bowel disease. The patient denies any implanted devices. Her ECOG performance status is 1. REVIEW OF SYSTEMS Review of systems was negative except as documented above. PATIENT REPORTED SYMPTOM SCREEN FATIGUE (Scale: 0 = no fatigue; 10 = worst fatigue you can imagine): 5 PAIN (Scale: 0 = no pain; 10 = worst pain you can imagine): 0 OVERALL QUALITY OF LIFE (Scale: 0 = as bad as can be; 10 = as good as can be): 8 PAST MEDICAL HISTORY Past Medical History: Diagnosis Date Atrial Fibrillation Unspecified (HCC) Chronic Diastolic (Congestive) Heart Failure (HCC) Chronic Obstructive Pulmonary Disease (HCC) Deficiency Iron Depression Fatty Liver Gastroesophageal Reflux Disease Hypertension Essential Primary Hypothyroidism Irritable Bowel Syndrome Without Diarrhea Mitral Stenosis With Regurgitation Rheumatic Osteoarthritis Sleep Apnea Stone Kidney Uropathy Obstructive Genitourinary Tract Vertigo Benign Paroxysmal Positional Bilateral PAST SURGICAL HISTORY Past Surgical History: Procedure Laterality Date AORTIC VALVE REPLACEMENT APPENDECTOMY BLEPHAROPLASTY CATARACT EXTRACTION HYSTERECTOMY KNEE ARTHROSCOPY LITHOTRIPSY ROTATOR CUFF REPAIR TONSILLECTOMY FAMILY HISTORY Family History Problem Relation Age of Onset Vaginal cancer Mother Heart failure Father SOCIAL HISTORY Social History Socioeconomic History Marital status: Number of children: 3 Tobacco Use Smoking status: Former Years: 46 Types: Cigarettes Quit date: 1983 Years since quittin.1 Smokeless tobacco: Never Vaping Use Vaping Use: never used Substance and Sexual Activity Alcohol use: Not Currently OBJECTIVE BP (!) 135/44 (BP Location: Right arm, Patient Position: Sitting, Cuff Size: Regular) Pulse 76 Temp 36.1 ??C (Temporal) Wt 83.1 kg PHYSICAL EXAM GENERAL: Alert and oriented in no apparent distress. Lymph: No palpable cervical, supraclavicular, infraclavicular, or axillary adenopathy. Lungs: Clear to auscultation bilaterally. Heart: Regular rate and rhythm. Normal S1 and S2. 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 I had a discussion with them regarding her lung cancer diagnosis including the staging. We also had a detailed discussion regarding the risks, benefits, and alternatives of radiotherapy in this setting. She is healing well postoperatively and has no complaints at this time. We also reviewed her most recent brain MRI results which demonstrated no intracranial metastatic disease. Her case was reviewed at multidisciplinary disciplinary tumor board. At this time, we do not recommended any adjuvant radiation therapy. She is scheduled to meet with Dr. Ansari later today to review the recommendations of chemotherapy. Her and her did mention wanting to potentially transfer their medical oncology care to [facility], as they live in [place], [place]. We told them to inform Dr. Ansari of this information and they could help facilitate transfer her care. We will not schedule any formal follow-up here in Radiation Oncology but did encourage the patient to reach out with any questions or concerns. We informed them that radiation treatment could be approached down the road, as needed. Patient seen in collaboration with Dr. Radford, please review her attestation for additional information. The patient was provided with our contact information. She wasasked to contact us with questions or concerns. She verbally expressed her understanding of the plan. EDUCATION Ready to learn, no apparent learning barriers were identified; learning preferences include listening. Explained diagnosis and treatment plan; patient expressed understanding of the content. PRIMARY PROVIDER Andrew Rodríguez MD I personally spent 35 minutes in care of the patient today. Time includes both non face to face andface to face patient care. Signed by: Abbi Salgado APRN, C.N.P., D.N.P. 04/29/2023 10:30 AM PRINTING SERVICES COORDINATOR [facility] [address] [place] [address] TING SERVICES COORDINATOR Associated attestation - Radha Radford M.D. - 04/29/2023 11:14 AM PRINTING SERVICES COORDINATOR RADIATION ONCOLOGY CONSULT I saw and evaluated the patient and participated in the lainez portions of the service. I reviewed thedocumentation of Ms. Abbi Salgado APRN and agree with the findings and plan. Please see Ms. Salgado's detailed note for the patient's initial presentation and work-up. Briefly, Mrs. Longoria is a very pleasant remote former smoker with a resected left lower lung cancer and presents now to discuss adjuvant radiation therapy options. I have reviewed her imaging, operative and pathology reports. She was initially thought to have an early stage lung cancer and was found to have a single N2 node involved and two N1 lymph nodes involved at the time of her surgery. She underwent a complete resection. She was found to have a 6.1cm adenocarcinoma, G3, with RICARDO, no LVSI, and margin negative. She had 3 involved lymph nodes out of 16;the involved lymph nodes were a station 7, 11L and an intraparenchymal lymph node with no DIXON. Her PD-L1 was 40% and she had a KRAS Q61L mutation. She has recovered well from surgery. On exam, she appears well and uses a walker. Detailed exam as per Ms. Cifuentesshu. We discussed the findings above and below in this note with the patient and her . We discussed her radiation treatment alternatives including observation vs adjuvant radiation therapy. I explained the historical context of adjuvant radiation therapy for lung cancer. There are a couple of recent randomized studies that show that we no longer recommend adjuvant radiation for a single N2 lymph node without DIXON which is her situation. She will see Dr. Ansari this afternoon to discuss chemo/immunotherapy options. I did explain that I was at the [facility] tumor board and do not recall a specific discussion about adjuvant radiation therapy. I did have the opportunity to present her case at the daily [facility] tumor board and all agreed with no adjuvant radiation therapy in this situation. She was happy to hear our recommendation. Their questions were answered; they were comfortable withthis plan. My thanks to Gentry Garcia, and Anne for the opportunity to participate in this patient's care. EDUCATION Ready to learn, no apparent learning barriers were identified; learning preferences include listening. Explained diagnosis and treatment plan; patient expressed understanding of the content. 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 04/29/2023 11:02 AM PRINTING SERVICES COORDINATOR Radiation Oncology [facility] [address] [place] [address] documented in this encounter Plan of Treatment Not on file documented as of this encounter Visit Diagnoses Diagnosis Malignant Neoplasm Of Unspecified Part Of Left Bronchus Or Lung (HCC)- Primary Secondary Malignant Neoplasm Lymph Node (HCC) documented in this encounter
--- OUTSIDE RECORDS SUMMARY | 2023-07-01 12:57 | XMS_ITS | Clinical Summary ---
Author Name Unknown Organization [facility] Address [place], [place] [address] Care Team Providers Care Chief Radiology Name Role Phone Andrew Rodríguez MD Primary Care Provider + Cori Payne MD Unavailable Arabella Diaz RN, BSN Unavailable Beto Rinaldi MD Unavailable [facility], [place] Unavailable [phone] [facility] Un[facility] Liset Welch FLAT HAMMERER Unavailable Claudette Ansari MD Unavailable Jacquie, Davidson Mcgill MANAGER [place] Unavailable [phone] Allergies Active Allergy Reactions Criticality Noted Date Comments Penicillins Hives,Angioedema High 04/02/2018 Medications Medication Sig Dispensed Refills Start Date End Date Status atorvastatin (LIPITOR) 40 mg tablet Take 1 tablet by mouth once daily. 03/26/2018 Active levothyroxine (SYNTHROID) 137 mcg tablet Take 137 mcg by mouth once daily. 1 02/26/2018 Active allopurinol (ZYLOPRIM) 100 mg tablet Take 200 mg by mouth once daily. Active loperamide (IMODIUM) 2 mg capsule Take 4mg by mouth with 1st loose stool, then 2mg with each subsequent loose stool. Max 16 mg in 24 hrs 0 06/07/2021 Active amiodarone (CORDARONE) 200 mg tabletIndication s:Atypical atrial flutter (HC) Take 1 Tablet (200 mg) by mouth once daily. 90 Tablet 3 12/19/2021 Active omeprazole (PRILOSEC) 20 mg Delayed-Release capsule TAKE 1 CAP BY MOUTH ONCE DAILY 04/11/2022 Active Saccharomyces boulardii (FLORASTOR) 250 mg capsule Take 250 mg by mouth once daily. 04/11/2022 Active Systane Complete 0.6 % ophthalmic solution INSTILL 1 DROP INTO BOTH FOUR TIMES A DAY FOR DRY EYES 08/10/2022 Active QUEtiapine (SEROQUEL) 300 mg tabletIndication s:Bipolar I disorder (HC) Take 1 Tablet (300 mg) by mouth at bedtime. 90 Tablet 1 02/27/2023 Active valsartan (DIOVAN) 320 mg tablet Take 320 mg by mouth once daily. 03/06/2023 Active amLODIPine (NORVASC) 5 mg tablet Take 5 mg by mouth once daily. 03/17/2023 Active nystatin (MYCOSTATIN) 100,000 unit/gram topical cream Apply topically to affected area(s) at bedtime. 09/28/2022 Active acetaminophen (TYLENOL EXTRA STRGTH) 500 mg tabletIndication s: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 Max acetaminophen dose: 4000mg in 24 hrs. 100 Tablet 04/09/2023 Active sennosides-docus ate (SENOKOT S) (8.6-50 mg) tabletIndication s: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) Take 1-4 Tablets by mouth 2 times daily if needed for Constipation. 25 Tablet 04/09/2023 Active Additional Information Patient not taking.Reported on 06/04/2023 lidocaine-priloc soraida (EMLA) 2.5-2.5 % creamIndications :Non-small cell cancer of left lung (HC) Apply 5 g topically to affected area(s) each time if needed (Prior to port access). Apply quarter size amount to port 30-40 minutes prior to port access. 30 g 2 05/02/2023 Active Additional Information Patient not taking.Reported on 06/04/2023 gabapentin (NEURONTIN) 300 mg capsule Take 1 Capsule (300 mg) by mouth 2 times daily if needed. 05/14/2023 Active dexAMETHasone (DECADRON) 4 mg tabletIndication s:Non-small cell cancer of left lung (HC) Take 2 Tablets (8 mg) by mouth once daily with a meal. Take on days 2, 3 and 4 of cycles 1-4. 24 Tablet 05/02/2023 4 Discontinue d(*Medicati on adjustment) ondansetron (ZOFRAN) 8 mg tabletIndication s:Non-small cell cancer of left lung (HC) Take 1 Tablet (8 mg) by mouth every 8 hours if needed for Nausea/Vomiting. 30 Tablet 2 05/02/2023 4 Discontinue d(*Medicati on adjustment) prochlorperazine (COMPAZINE) 5 mg tabletIndication s:Non-small cell cancer of left lung (HC) Take 1 Tablet (5 mg) by mouth every 6 hours if needed for Nausea/Vomiting. 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 Beto Rinaldi 04/08/2023 Bipolar I disorder 09/08/2021 Anxiety 09/08/2021 Severe obesity (BMI 35.0-39.9) with comorbidity 10/18/2019 Kidney stone 06/23/2018 CKD (chronic kidney disease) stage 3, GFR 30-59 ml/min 05/03/2018 Overview: Baseline about 1.0 Elevated lipase 05/03/2018 Right Ureteral stone with hydronephrosis 019 Overview: H/o 9mm right kidney stone s/p lithotripsy 2015 6mm right w/ hydro Controlled type 2 [...] Encounters Date Type Department Care Team Description 06/04/2023 9:00 AM CDT Office Visit [facility] [address] [place] [address] Claudette Ansari MD Follow Up (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)/) 06/04/2023 8:00 AM CDT - 06/04/2023 11:59 PM CDT Hospital Encounter [facility] [address] [facility] [place] [id number] Non-small cell cancer of left lung (HC) (Primary Dx); Encounter for screening for other viral diseases 06/04/2023 Travel 05/30/2023 Social Work Encounter [facility] [address] [place] [address] Davidson Dhillon LSW Social Work Visit 05/29/2023 Telephone [facility] [address] [place] [address] Liset Welch, FLAT HAMMERER Care Coordination 05/29/2023 Hospital/[facility] Telephone Encounter [facility] [address] [facility] [place] [address] Veronica Galaviz RN Pre Procedure (PVP) 05/24/2023 Telephone [facility] [address] [facility] [place] [address] Liset Welch, FLAT HAMMERER Appointment 05/21/2023 4:00 PM FULL STACK SOFTWARE DEVELOPER Ancillary Procedure [facility] [address] [place] [address] 05/21/2023 Travel 05/21/2023 Telephone [facility] [address] [facility] [place] [address] Liset Welch, FLAT HAMMERER Patient update 05/21/2023 Telephone [facility] [address] [place] [address] Liset Welch, FLAT HAMMERER Appointment 05/17/2023 Hospital/[facility] Telephone Encounter [facility] [address] [place] [address] Claudette Ansari MD Pre Procedure 05/15/2023 Telephone [facility] [address] [place] [address] Liset Welch, FLAT HAMMERER Follow Up 05/14/2023 8:15 AM FULL STACK SOFTWARE DEVELOPER Office Visit [facility] [address] [place] [address] Liset Welch, FLAT HAMMERER Follow Up (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)//) 05/14/2023 7:13 AM FULL STACK SOFTWARE DEVELOPER - 05/14/2023 11:59 PM FULL STACK SOFTWARE DEVELOPER Hospital Encounter [facility] [address] [facility] [place] [address] Non-small cell cancer of left lung (HC) (Primary Dx); Encounter for screening for other viral diseases; 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) 05/14/2023 Travel 05/13/2023 Telephone [facility] [address] [place] [address] Liset Welch, FLAT HAMMERER Appointment 05/13/2023 Hospital/[facility] Telephone Encounter [facility] [address] [place] [address] Veronica Galaviz RN Pre Procedure (PVP) 05/09/2023 2:00 PM FULL STACK SOFTWARE DEVELOPER - 05/09/2023 11:59 PM FULL STACK SOFTWARE DEVELOPER Hospital Encounter [facility] [address] [place] [address] Non-small cell cancer of left lung (HC) (Primary Dx); 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) 05/09/2023 2:00 PM FULL STACK SOFTWARE DEVELOPER Education [facility] [address] [place] [address] 05/09/2023 Travel 05/08/2023 Telephone [facility] [address] [place] [address] Jess Key, Questions (Questions about dressing over port placement) 05/07/2023 2:21 PM FULL STACK SOFTWARE DEVELOPER Anesthesia Event [facility] [address] [place] [address] Terri Corey, AMBER 05/07/2023 1:10 PM FULL STACK SOFTWARE DEVELOPER - 05/07/2023 2:30 PM FULL STACK SOFTWARE DEVELOPER Surgery [facility] [address] [place] [address] Jess Key, Ultrasound and fluoroscopic guided port placement 05/07/2023 11:57 AM FULL STACK SOFTWARE DEVELOPER - 05/07/2023 4:39 PM FULL STACK SOFTWARE DEVELOPER Hospital Encounter [facility] [address] [place] [address] Jess Key, Discharge Disposition: Home Self Care 05/07/2023 Travel 05/07/2023 Orders Only [facility] [address] [place] [address] Claudette Ansari MD <No scans attached> 05/02/2023 Telephone [facility] [address] [place] [address] Claudette Ansari MD New Med Request 05/02/2023 Telephone [facility] [address] [place] [address] Jess Key DO Surgery Scheduled 05/02/2023 Orders Only [facility] [address] [place] [address] Jess Key DO <No scans attached> 05/01/2023 Telephone [facility] [address] [place] [address] Claudette Ansari MD Education 04/29/2023 1:30 PM FULL STACK SOFTWARE DEVELOPER Office Visit [facility] [address] [place] [address] Claudette Ansari MD Consult ( Primary cancer of left lower lobe of lung) 04/29/2023 Travel 04/23/2023 1:00 PM FULL STACK SOFTWARE DEVELOPER - 04/23/2023 11:59 PM FULL STACK SOFTWARE DEVELOPER Hospital Encounter [facility] [address] [place] [address] Claudette Ansari MD 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) 04/23/2023 Travel 04/23/2023 Telephone [facility] [address] [place] [address] Claudette Ansari MD Appointment 04/15/2023 Oncology Nurse Navigation [facility] [address] [place] [address] Samina Hay RN Oncology Nurse Navigation (Introduction and Medical Oncology Consultation) 04/12/2023 9:15 AM FULL STACK SOFTWARE DEVELOPER Home Care Visit [facility] [address] [facility] [place] [address] Andrew Crisostomo, PT PT - NOT TAKEN UNDER HOME CARE - HOME VISIT 04/12/2023 Telephone [facility] [address] [place] [address] Mercedez Hobbs PA Results 04/12/2023 Phone Office Visit [facility] [address] [place] [address] Mercedez Hobbs PA 04/12/2023 Travel 04/12/2023 Orders Only [facility] [address] [place] [address] Arabella Diaz RN, BSN Oncology Nurse Navigation (Orders for Medi... 04/08/2023 7:47 AM FULL STACK SOFTWARE DEVELOPER Anesthesia Event [facility] [address] [place] [address] Tyler Chris MD 04/08/2023 7:30 AM FULL STACK SOFTWARE DEVELOPER - 04/08/2023 2:00 PM FULL STACK SOFTWARE DEVELOPER Surgery [facility] [address] [place] [address] Beto Rinaldi MD Flexible bronchoscopy, robotic bronchoscopy with biopsy, 04/08/2023 5:38 AM FULL STACK SOFTWARE DEVELOPER - 04/11/2023 1:22 PM FULL STACK SOFTWARE DEVELOPER Hospital Encounter [facility] [address] [place] [address] Beto Rinaldi MD 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) (Primary Dx); Lung nodule Discharge Disposition: Home Health 04/08/2023 Travel 04/04/2023 Telephone [facility] [address] [place] [address] Margarita Terrell RN Pre-op 04/03/2023 12:44 PM FULL STACK SOFTWARE DEVELOPER - 04/03/2023 11:59 PM FULL STACK SOFTWARE DEVELOPER Hospital Encounter [facility] [address] [place] [address] Naeem Gu MD Lung nodule 04/03/2023 Travel from Last 3 Months Immunizations Name Administration Dates Next Due COVID-19 vaccine (Moderna 50 mcg/0.5mL) 12YO+ BIVALENT CATRACHITO CARRENO 08/30/2022 COVID-19 vaccine (Pfizer-BioNTech 30mcg/0.3mL) P F, MDV 05/14/2020,04/23/2020 Covid-19 Vaccine [...] Smoking Tobacco: Former Cigarettes 2 30 1 1989 Smokeless Tobacco: Never Tobacco Cessation:Counseling Given: Not Answered Comments:Quit 30 years ago Alcohol Use Standard Drinks/Week Comments Not Currently 0 (1 standard drink = 0.6 oz pur e alcohol) none PHQ-2 Answer Date Recorded PHQ-2 TOTAL SCORE 0 02/27/2023 Social Connections Answer Date Recorded Frequency of Communication with Friends and Fami ly 0 04/08/2023 Alcohol Use Answer Date Recorded How often do you have a drink containing alcohol ? 1 09/08/2021 How many drinks containing a lcohol do you have on a typical day when you are drinking? 0 09/08/2021 How often do you have five or more drinks on one occasion? 0 09/08/2021 Financial Resource Strain Answer Date R ecorded Difficulty of Paying Living Expenses 3 04/08/2023 Difficulty of Paying Living Expenses Not on file 04/08/2023 Food Insecurity Answer Date Recorded Worried About Running Out of Food in the Last Ye ar 1 04/08/2023 Transportation Needs Answer Date Record ed Lack of Transportation (Medical) 1 04/08/2023 Housing Stability Answer Date Recorded Unable to Pay for Housing in the Last Year 1 04/08/2023 Sex and Gender Information Value Date Recorded Sex Assigned at Not on file Gender Identity Not on file Sexual Orientation Not on file Obstetrics History Last Filed Vital Signs Vital Sign Reading Time Taken Comments Blood Pressure 128/61 06/04/2023 8:38 AM CDT Pulse 78 06/04/2023 8:38 AM CDT Temperature 36.6 ??C (97.8 ??F) 06/04/2023 8:38 AM CD T Respiratory Rate 16 06/04/2023 8:38 AM CDT Oxygen Saturation 95% 06/04/2023 8:38 AM CDT Inhaled Oxygen Concentration - - Weight 83 kg (182 lb 15.7 oz) 06/04/2023 8:38 AM CDT Height 152.3 cm (4' 11.96) 05/14/2023 10:14 AM FULL STACK SOFTWARE DEVELOPER Body Mass Index 35.78 05/14/2023 10:14 AM FULL STACK SOFTWARE DEVELOPER Plan of Treatment Upcoming Encounters Date Type Department Care Team (Late st Contact Info) Description 07/08/2023 1:45 PM CDT Appointment [facility] [address] [place] [address] 07/08/2023 2:00 PM CDT Appointment [facility] [address] [place] [address] 07/11/2023 1:00 PM CDT Office Visit [facility] [address] [place] [address] Claudette Ansari MD [address] [place] [address] 08/28/2023 11:15 AM CDT Office Visit [facility] [address] [place] [address] Cori Payne MD [address] [place] [address] Health Maintenance Due Date Last Done Comments Zoster (shingles) series for age 50+ (1 of 2) 1960 DEXA/DXA scan for age 65+ 2006 Medicare Wellness for age 65+ 2006 COVID-19 vaccine series ( season) 2023 01/18/2023, 08/30/2022, 01/23/2022, Additional history exists Influenza for age 65+ 11/17/2023 01/02/2022 , 12/14/2020, 11/30/2020, Additional history exists Depression screening for age 12+ 02/28/2024 02/27/2023, 09/03/2022, 05/23/2022, Additional history exists BMI (ht and wt on same day) for age 18+ 03/28/2024 03/28/2023, 05/23/2022, 12/15/2020 Tetanus booster 06/08/2028 06/08/2018 Tdap Completed 06/08/2018 Pneumococcal series for age 65+ Completed 02/27/2022, 02/21/2022, 11/17/2019, Additional history exists Medical Devices Implanted Type Area Line Maintenance Supervisor Device Identifier Shelf Expiration Date Model / Serial / Lot Stent Uret [id number] Silhouette - [id number] Implanted:Qty: 1 on 05/03/2018 by Alin Miguel MD at [facility] Right: [employer] Suhas [id number]# / / [id number] Stent Uret [id number] Silhouette - [id number] Implanted:Qty: 1 on 05/03/2018 by Alin Miguel MD at [facility] Right: [employer] Suhas [id number]# / / [id number] Power Port Isp Mri 6fr [id number] - [id number] Implanted:Qty: 1 on 05/07/2023 by Jess Key DO at [facility] Right: Chest [employer] 08/15/2024 [id number] / / [id number] Procedures Procedure Name Priority Date/Time Associated Diagnosis Comments RED CELL MORPHOLOGY STAT 06/04/2023 8:59 AM CDT Non-small cell cancer of left lung (HC) Encounter for screening for other viral diseases PLATELET ESTIMATE STAT 06/04/2023 8:59 AM CDT Non-small cell cancer of left lung (HC) Encounter for screening for other viral diseases MANUAL DIFFERENTIAL STAT 06/04/2023 8:59 AM CDT Non-small cell cancer of left lung (HC) Encounter for screening for other viral diseases ONCOLOGY ABSOLUTE NEUTROPHIL COUNT STAT 06/04/2023 8:59 AM CDT Non-small cell cancer of left lung (HC) Encounter for screening for other viral diseases COMP METABOLIC PANEL STAT 06/04/2023 8:59 AM CDT Non-small cell cancer of left lung (HC) Encounter for screening for other viral diseases ECHO TTE LIMITED WO CONTRAST W COLOR W LTD DOPPLER Routine 05/21/2023 6:41 PM FULL STACK SOFTWARE DEVELOPER Positive blood culture History of transcatheter aortic valve replacement (TAVR) ONCOLOGY ABSOLUTE NEUTROPHIL COUNT STAT 05/14/2023 7:27 AM FULL STACK SOFTWARE DEVELOPER Non-small cell cancer of left lung (HC) Encounter for screening for other viral diseases HBSAG (HBS) STAT 05/14/2023 7:27 AM FULL STACK SOFTWARE DEVELOPER Non-small cell cancer of left lung (HC) Encounter for screening for other viral diseases COMP METABOLIC PANEL STAT 05/14/2023 7:27 AM FULL STACK SOFTWARE DEVELOPER Non-small cell cancer of left lung (HC) Encounter for screening for other viral diseases ANTI HBC STAT 05/14/2023 7:27 AM FULL STACK SOFTWARE DEVELOPER Non-small cell cancer of left lung (HC) Encounter for screening for other viral diseases CBC WITH AUTO DIFFERENTIAL Today 05/09/2023 3:26 PM FULL STACK SOFTWARE DEVELOPER 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) CBC WITH AUTO DIFFERENTIAL Today 05/09/2023 3:26 PM FULL STACK SOFTWARE DEVELOPER 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) COMP METABOLIC PANEL Today 05/09/2023 3:26 PM FULL STACK SOFTWARE DEVELOPER 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) IRON PLUS IRON BINDING CAP Today 05/09/2023 3:26 PM FULL STACK SOFTWARE DEVELOPER Non-small cell cancer of left lung (HC) FERRITIN Today 05/09/2023 3:26 PM FULL STACK SOFTWARE DEVELOPER Non-small cell cancer of left lung (HC) XR CENTRAL VENOUS CATHETER FLUORO Routine 05/07/2023 4:01 PM FULL STACK SOFTWARE DEVELOPER SUPRAGLOTTIC-LMA Routine 05/07/2023 2:34 PM FULL STACK SOFTWARE DEVELOPER INSERTION POWER PORT Elective 05/07/2023 2:11 PM FULL STACK SOFTWARE DEVELOPER Non-small cell carcinoma of left lung (HC) Case Notes No pathRequest C armBedside ultrasoundLikely on the right as patient with left-sided lung cancer BEDSIDE US STUDY ARCHIVE Routine 05/07/2023 12:03 PM FULL STACK SOFTWARE DEVELOPER MR HEAD BRAIN WWO Routine 04/23/2023 1:40 PM FULL STACK SOFTWARE DEVELOPER 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) PLATELET COUNT Timed 04/11/2023 6:15 AM FULL STACK SOFTWARE DEVELOPER XR CHEST 1 VIEW PORTABLE Timed 04/09/2023 12:06 PM FULL STACK SOFTWARE DEVELOPER XR CHEST 1 VIEW PORTABLE Routine 04/09/2023 5:00 AM FULL STACK SOFTWARE DEVELOPER GLUCOSE METER Timed 04/08/2023 1:27 PM FULL STACK SOFTWARE DEVELOPER XR CHEST 1 VIEW PORTABLE STAT 04/08/2023 12:43 PM FULL STACK SOFTWARE DEVELOPER FOCUS Timed 04/08/2023 11:47 AM FULL STACK SOFTWARE DEVELOPER OR IMAGE CAPTURE Routine 04/08/2023 10:37 AM FULL STACK SOFTWARE DEVELOPER [facility] KIT PR5 Routine 04/08/2023 10:34 AM FULL STACK SOFTWARE DEVELOPER [facility] DRSG PR5 Routine 04/08/2023 10:34 AM FULL STACK SOFTWARE DEVELOPER [facility] DRSG PR1 Routine 04/08/2023 10:34 AM FULL STACK SOFTWARE DEVELOPER [facility] TUBING PR20 Routine 04/08/2023 10:34 AM FULL STACK SOFTWARE DEVELOPER HC TUBING PR1 Routine 04/08/2023 10:34 AM FULL STACK SOFTWARE DEVELOPER [facility] ANES US GUIDE FOR VASC ACCESS Routine 04/08/2023 10:34 AM FULL STACK SOFTWARE DEVELOPER [facility] CATH PR5 Routine 04/08/2023 10:34 AM FULL STACK SOFTWARE DEVELOPER ENDOTRACHEAL TUBE Routine 04/08/2023 10:20 AM FULL STACK SOFTWARE DEVELOPER ENDOTRACHEAL TUBE Routine 04/08/2023 10:20 AM FULL STACK SOFTWARE DEVELOPER ENDOTRACHEAL TUBE Routine 04/08/2023 10:20 AM FULL STACK SOFTWARE DEVELOPER XR FLUORO BRONCHOSCOPY Routine 04/08/2023 9:22 AM FULL STACK SOFTWARE DEVELOPER PATH NON BIN CLEANER CYTOLOGY Today 04/08/2023 9:01 AM FULL STACK SOFTWARE DEVELOPER PATH TISSUE EXAM Today 04/08/2023 8:29 AM FULL STACK SOFTWARE DEVELOPER ENDOTRACHEAL TUBE Routine 04/08/2023 8:02 AM FULL STACK SOFTWARE DEVELOPER ENDOTRACHEAL TUBE Routine 04/08/2023 8:02 AM FULL STACK SOFTWARE DEVELOPER ENDOTRACHEAL TUBE Routine 04/08/2023 8:02 AM FULL STACK SOFTWARE DEVELOPER THORACOSCOPY WITH LUNG RESECTION Elective 04/08/2023 7:30 AM FULL STACK SOFTWARE DEVELOPER Lung nodule Case Notes [facility] [employer] Special Needs WT [address] BRONCHOSCOPY ENDOBRONCHIAL ULTRASOUND FINE NEEDLE ASPIRATE Elective 04/08/2023 7:30 AM FULL STACK SOFTWARE DEVELOPER Lung nodule Case Notes [employer] Special Needs WT [address] ROBOTIC ASSISTED BRONCHOSCOPY ION Elective 04/08/2023 7:30 AM FULL STACK SOFTWARE DEVELOPER Lung nodule Case Notes [employer] Special Needs WT [address] RED BLOOD CELLS EA UNIT Preop 04/08/2023 7:10 AM FULL STACK SOFTWARE DEVELOPER RED BLOOD CELLS EA UNIT Preop 04/08/2023 7:10 AM FULL STACK SOFTWARE DEVELOPER TYPE & SCREEN Preop 04/08/2023 7:10 AM FULL STACK SOFTWARE DEVELOPER CBC WITH AUTO DIFFERENTIAL Preop 04/08/2023 7:01 AM FULL STACK SOFTWARE DEVELOPER CREATININE Preop 04/08/2023 7:01 AM FULL STACK SOFTWARE DEVELOPER BUN Preop 04/08/2023 7:01 AM FULL STACK SOFTWARE DEVELOPER POTASSIUM Preop 04/08/2023 7:01 AM FULL STACK SOFTWARE DEVELOPER CBC WITH AUTO DIFFERENTIAL Preop 04/08/2023 7:01 AM FULL STACK SOFTWARE DEVELOPER PROTIME-INR Preop 04/08/2023 7:00 AM FULL STACK SOFTWARE DEVELOPER CT CHEST WO CLAUDETTE 04/08/2023 5:48 AM FULL STACK SOFTWARE DEVELOPER Lung nodule SCAN-CARDIAC STRIP 04/08/2023 12:00 AM FULL STACK SOFTWARE DEVELOPER COMPLETE PULMONARY FUNCTION TEST WITH BRONCHODILATOR CLAUDETTE 04/03/2023 1:47 PM FULL STACK SOFTWARE DEVELOPER Lung nodule from Last 3 Months Results * (ABNORMAL) ONCOLOGY ABSOLUTE NEUTROPHIL COUNT (06/04/2023 8:59 AM CDT) Only the most recent of2 resultswithin the time period is included. WHITE BLOOD COUNT 8.9 4.5 - 11.0 thou/cu mm 06/04/2023 9:39 AM [facility] RED BLOOD COUNT 3.50(L) 4.00 - 5.20 mil/cu mm 06/04/2023 9:39 AM [facility] HEMOGLOBIN 10.5(L) 12.0 - 16.0 g/dL 06/04/2023 9:39 AM [facility] HEMATOCRIT 33.9 33.0 - 51.0 % 06/04/2023 9:39 AM [facility] MCV 97 80 - 100 fL 06/04/2023 9:39 AM [facility] MCH 30.0 26.0 - 34.0 pg 06/04/2023 9:39 AM T [facility] MCHC 31.0(L) 32.0 - 36.0 g/dL 06/04/2023 9:39 AM [facility] RDW 17.0(H) 11.5 - 15.5 % 06/04/2023 9:39 AM [facility] PLATELET COUNT 250 140 - 440 thou/cu mm 06/04/2023 9:39 AM [facility] MPV 9.0 6.5 - 11.0 fL 06/04/2023 9:39 AM [facility] NRBC 06/04/2023 9:39 AM [facility] ABS NRBC 06/04/2023 9:39 AM [facility] Blood BLOOD SPECIMEN / Unknown Venipuncture / Unknown 06/04/2023 8:59 AM CDT 06/04/2023 9:01 AM CDT [facility] - 06/04/2023 9:39 AM CDT Includes CBC and differential. Drawn from port; treatment pending. Claudette Ansari MD HEMATOLOGY [facility] [address] [place] [address] * (ABNORMAL) RED CELL MORPHOLOGY (06/04/2023 8:59 AM CDT) TEARDROP CELLS Few 06/04/2023 9:39 AM T [facility] RBC COMMENT Present(A ) RBC morphology appears normal, RBC morphology within normal limits for newborns. 06/04/2023 9:39 AM T [facility] Blood BLOOD SPECIMEN / Unknown Venipuncture / Unknown 06/04/2023 8:59 AM CDT 06/04/2023 9:01 AM CDT [facility] - 06/04/2023 9:39 AM CDT Includes CBC and differential. Drawn from port; treatment pending. Claudette Ansari MD HEMATOLOGY Performing Organization Address City/[facility]/ZIP Co de Phone Number [facility] [address] [place] [address] * PLATELET ESTIMATE (06/04/2023 8:59 AM CDT) PLATELET ESTIMATE Adequate Adequate, No estimate 06/04/2023 9:39 AM CDT [facility] Blood BLOOD SPECIMEN / Unknown Venipuncture / Unknown 06/04/2023 8:59 AM CDT 06/04/2023 9:01 AM CDT [facility] - 06/04/2023 9:39 AM CDT Includes CBC and differential. Drawn from port; treatment pending. Claudette Ansari MD HEMATOLOGY Performing Organization Address [facility] Co de Phone Number [facility] [address] [place] [address] * (ABNORMAL) MANUAL DIFFERENTIAL (06/04/2023 8:59 AM CDT) [facility] % NEUTROPHILS 77.0 % 06/04/2023 9:39 AM [facility] % LYMPHOCYTES 10.0 % 06/04/2023 9:39 AM [facility] % MONOCYTES 5.0 % 06/04/2023 9:39 AM [facility] % EOSINOPHILS 3.0 % 06/04/2023 9:39 AM [facility] % BASOPHILS 4.0 % 06/04/2023 9:39 AM [facility] % MYELOCYTES 1.0(H) <0.1 % 06/04/2023 9:39 AM [facility] NEUTROPHILS ABSOLUTE 6.9 1.7 - 7.0 thou/cu mm 06/04/2023 9:39 AM [facility] LYMPHOCYTES ABSOLUTE 0.9 0.9 - 2.9 thou/cu mm 06/04/2023 9:39 AM [facility] MONOCYTES ABSOLUTE 0.4 <0.9 thou/cu mm 06/04/2023 9:39 AM [facility] EOSINOPHILS ABSOLUTE 0.3 <0.5 thou/cu mm 06/04/2023 9:39 AM [facility] BASOPHILS ABSOLUTE 0.4(H) <0.3 thou/cu mm 06/04/2023 9:39 AM [facility] ABSOLUTE MYELOCYTES 0.1(H) <=0.0 thou/cu mm 06/04/2023 9:39 AM [facility] Blood BLOOD SPECIMEN / Unknown Venipuncture / Unknown 06/04/2023 8:59 AM CDT 06/04/2023 9:01 AM [facility] - 06/04/2023 9:39 AM CDT Includes CBC and differential. Drawn from port; treatment pending. Claudette Ansari MD HEMATOLOGY Performing Organization Address City/[facility] Co de Phone Number [facility] [address] [place] [phone] * (ABNORMAL) COMP METABOLIC PANEL (06/04/2023 8:59 AM CDT) Only the most recent of3 resultswithin the time period is included. SODIUM 142 136 - 145 mmol/L 06/04/2023 9:25 AM [facility] POTASSIUM 4.0 3.5 - 5.1 mmol/L 06/04/2023 9:25 AM [facility] CHLORIDE 104 98 - 107 mmol/L 06/04/2023 9:25 AM [facility] CO2,TOTAL 27 22 - 29 mmol/L 06/04/2023 9:25 AM [facility] ANION GAP 11 5 - 18 06/04/2023 9:25 AM [facility] GLUCOSE 146(H) 70 - 99 mg/dL 06/04/2023 9:25 AM [facility] CALCIUM 9.6 8.8 - 10.2 mg/dL 06/04/2023 9:25 AM [facility] BUN 21 8 - 23 mg/dL 06/04/2023 9:25 AM [facility] CREATININE 1.22(H) 0.50 - 0.90 mg/dL 06/04/2023 9:25 AM [facility] BUN/CREAT RATIO 17 10 - 20 9:25 AM [facility] eGFR 45(L) >90 mL/min/1.7 3m2 06/04/2023 9:25 AM [facility] Comment:As of 2021, eG FR is calculated by the CKD-EPI creatinine equation without race adjustment. ??eGFR can be influenced by muscle mass, exercise, and diet. ??The reported eGFR is an estimation only and is only applicable if the renal function is stable. ALBUMIN 3.8(L) 4.0 - 4.9 g/dL 06/04/2023 9:25 AM [facility] PROTEIN,TOTAL 6.6 6.0 - 8.0 g/dL 06/04/2023 9:25 AM [facility] BILIRUBIN,TOTAL 0.3 0.0 - 1.2 mg/dL 06/04/2023 9:25 AM [facility] ALK PHOSPHATASE 105(H) 35 - 104 IU/L 06/04/2023 9:25 AM [facility] ALT (SGPT) 23 10 - 35 IU/L 06/04/2023 9:25 AM [facility] AST (SGOT) 33 10 - 35 IU/L 06/04/2023 9:25 AM [facility] Blood BLOOD SPECIMEN / Unknown Venipuncture / Unknown 06/04/2023 8:59 AM T 06/04/2023 9:01 AM T Claudette Ansari MD CHEMISTRY [facility] [address] [place] [address] * ECHO TTE LIMITED WO CONTRAST W COLOR W LTD DOPPLER (05/21/2023 6:41 PM FULL STACK SOFTWARE DEVELOPER) AORTIC VALVE MEAN PG 18 mmHg EJECTION FRACTION 65 % PEAK TR VELOCITY 3.6 m/s LVEDD 4.6 cm MITRAL VALVE MR ERO 31 mm2 Anatomical Region Laterality Modality Ultrasound 05/21/2023 5:51 PM FULL STACK SOFTWARE DEVELOPER Narrative 05/21/2023 7:08 PM FULL STACK SOFTWARE DEVELOPER ECHOCARDIOGRAM JOZEF THOMPSON ? Accession#: ?? [id number] : ?1940 82 years Study Date: ?? 05/21/2023 5:51:54 PM Gender: F ?BP: ? 123/52 mmHg Height: 152.00 cm ?BSA: ?1.83 m? ? ? Weight: 87.00 kg ? Tech: ? MTS ? Referring MD: LIZET SOTO Site: ? [facility] Reading Location: [facility] Patient Location: Inpatient. Procedure: Limited 2D , Color Doppler and Limited Spectral Doppler. Indication for study: Positive blood culture; History of transcatheter aortic valve replacement (TAVR) Cardiac Rhythm: Regular.Study quality: Imaging limitations: This study was subject to imaging limitations due to body habitus and a prominent lung artifact. Final Impressions: Limited Echocardiogram performed 1. Normal left ventricular size, mildly increased wall thickness, normal global systolic function, calculated EF of 65 %. 2. Right ventricular cavity size is normal, global systolic RV function is normal. 3. The aortic valve is a normal functioning 23 mm Sendy 3 Ultra bioprosthesis AVR, no stenosis and no regurgitation. 4. No obvious vegetation, however consideration should be given to JACQUELINE if clinical suspicion warrants given presence of artificial valve. Comparison Compared to prior exam of 01/24/2023, there has been no significant change. Chamber Sizes and Function Normal left ventricular size, mildly increased wall thickness, normal global systolic function, calculated EF of 65 %. Right ventricular cavity size is normal, global systolic RV function is normal. Valves, RV Pressures and Diastolic Function The aortic valve is a normal functioning 23 mm Sendy 3 Ultra bioprosthesis replacement, no stenosis and no regurgitation. Moderate mitral annular calcification is present. The tricuspid valve is normal in structure. Tricuspid regurgitation is mild. The tricuspid regurgitant velocity is 3.6 m/s, the estimated right ventricular systolic pressure is 51 mmHg plus right atrial pressure. The pulmonic valve is normal. Trace pulmonic regurgitation is present on color flow. Masses, Effusion, Shunts The inferior vena cava is normal sized, respiratory size variation greater than 50%. MEASUREMENTS AND CALCULATIONS 2-D Measurements and LV Function: LVID (d) 4.6 cm Planimetered EF 65 % LVID (s) 3.1 cm LV FS% (2D) ? 33 % IVS (d) ??1.2 cm HR ?66 bpm LVPW (d) 1.2 cm Ao Sinus 2.6 cm Asc Ao ?? 3.1 cm Aortic Valve: Vmax ? 2.9 m/s Max PG ?34 mmHg VTI ?0.59 m ??Mean PG ?? 18 mmHg LVOT V max 1.3 m/s Dim Index 0.48 LVOT VTI ?? 0.29 m Mitral Valve: MR ERO ??0.31 cm? ? ? MR Vol. 47 ml MR TVI ??1.52 m Tricuspid Valve and estimated PA pressures: TR Vmax 3.6 m/s TR maxG 51 mmHg . This study was interpreted by an [facility] accredited facility. CC: HIM (med records) [facility], Med/Surg - IP [facility]. ??Final ?? Procedure Note Harris Vasquez MD - 05/21/2023 ECHOCARDIOGRAM JOZEF THOMPSON : 1940 82 years Study Date: 05/21/2023 5:51:54 PM Gender: F BP: 123/52 mmHg Height: 152.00 cm BSA: 1.83 m? ? ? Weight: 87.00 kg Tech: MTS Referring MD: LIZET SOTO Site: [facility] Reading Location: [facility] Patient Location: Inpatient. Procedure: Limited 2D , Color Doppler and Limited Spectral Doppler. Indication for study: Positive blood culture; History of transcatheteraortic valve replacement (TAVR) Cardiac Rhythm: Regular.Study quality: Imaging limitations: This study was subject to imaging limitations due tobody habitus and a prominent lung artifact. Final Impressions: Limited Echocardiogram performed 1. Normal left ventricular size, mildly increased wall thickness, normalglobal systolic function, calculated EF of 65 %. 2. Right ventricular cavity size is normal, global systolic RV functionis normal. 3. The aortic valve is a normal functioning 23 mm Sendy 3 Ultrabioprosthesis AVR, no stenosis and no regurgitation. 4. No obvious vegetation, however consideration should be given to JACQUELINE ifclinical suspicion warrants given presence of artificial valve. Comparison Compared to prior exam of 01/24/2023, there has been no significantchange. Chamber Sizes and Function Normal left ventricular size, mildly increased wall thickness, normalglobal systolic function, calculated EF of 65 %. Right ventricular cavitysize is normal, global systolic RV function is normal. Valves, RV Pressures and Diastolic Function The aortic valve is a normal functioning 23 mm Sendy 3 Ultrabioprosthesis replacement, no stenosis and no regurgitation. Moderatemitral annular calcification is present. The tricuspid valve is normal instructure. Tricuspid regurgitation is mild. The tricuspid regurgitantvelocity is 3.6 m/s, the estimated right ventricular systolic pressure is51 mmHg plus right atrial pressure. The pulmonic valve is normal. Tracepulmonic regurgitation is present on color flow. Masses, Effusion, Shunts The inferior vena cava is normal sized, respiratory size variation greaterthan 50%. MEASUREMENTS AND CALCULATIONS 2-D Measurements and LV Function: LVID (d) 4.6 cm Planimetered EF 65 % LVID (s) 3.1 cm LV FS% (2D) 33 % IVS (d) 1.2 cm HR 66 bpm LVPW (d) 1.2 cm Ao Sinus 2.6 cm Asc Ao 3.1 cm Aortic Valve: Vmax 2.9 m/s Max PG 34 mmHg VTI 0.59 m Mean PG 18 mmHg LVOT V max 1.3 m/s Dim Index 0.48 LVOT VTI 0.29 m Mitral Valve: MR ERO 0.31 cm? ? ? MR Vol. 47 ml MR TVI 1.52 m Tricuspid Valve and estimated PA pressures: TR Vmax 3.6 m/s TR maxG 51 mmHg . This study was interpreted by an [facility] accredited facility. CC: HIM (med records) [facility], Med/Surg - IP [facility]. Final Lizet Soto MD ECHO ORD * HBSAG (HBS) (05/14/2023 7:27 AM FULL STACK SOFTWARE DEVELOPER) HBSAG Nonreactive Nonreactive 05/14/2023 4:27 PM FULL STACK SOFTWARE DEVELOPER [facility] Blood BLOOD SPECIMEN / Unknown Line/Port / Unknown 05/14/2023 7:27 AM FULL STACK SOFTWARE DEVELOPER 05/14/2023 7:32 AM FULL STACK SOFTWARE DEVELOPER Liset Welch NP SEND OUTS Performing Organization Address City/[facility] Co de Phone Number [facility] [address] [place] [address], * ANTI HBC (05/14/2023 7:27 AM FULL STACK SOFTWARE DEVELOPER) ANTI HBC Non-React carissa Non-React carissa 05/14/2023 4:27 PM FULL STACK SOFTWARE DEVELOPER [facility] Comment:Anti-HBc Antibodies not detected. Does not exclude the possibility of exposure to or infection with HBV. Levels of Anti-HBc may be below the cut-off in early infection. Blood BLOOD SPECIMEN / Unknown Line/Port / Unknown 05/14/2023 7:27 AM FULL STACK SOFTWARE DEVELOPER 05/14/2023 7:32 AM FULL STACK SOFTWARE DEVELOPER Liset Welch NP SEND OUTS Performing Organization Address City/[facility]/ZIP Co de Phone Number [facility] [address] [place] [address], * (ABNORMAL) CBC WITH AUTO DIFFERENTIAL (05/09/2023 3:26 PM [facility]) Only the most recent of2 resultswithin the time period is included. WHITE BLOOD COUNT 7.1 4.5 - 11.0 thou/cu mm 05/09/2023 3:35 PM [facility] RED BLOOD COUNT 3.91(L) 4.00 - 5.20 mil/cu mm 05/09/2023 3:35 PM [facility] HEMOGLOBIN 11.6(L) 12.0 - 16.0 g/dL 05/09/2023 3:35 PM [facility] HEMATOCRIT 37.2 33.0 - 51.0 % 05/09/2023 3:35 PM [facility] MCV 95 80 - 100 fL 05/09/2023 3:35 PM [facility] MCH 29.7 26.0 - 34.0 pg 05/09/2023 3:35 PM [facility] MCHC 31.2(L) 32.0 - 36.0 g/dL 05/09/2023 3:35 PM [facility] RDW 15.3 11.5 - 15.5 % 05/09/2023 3:35 PM [facility] PLATELET COUNT 165 140 - 440 thou/cu mm 05/09/2023 3:35 PM [facility] MPV 10.3 6.5 - 11.0 fL 05/09/2023 3:35 PM [facility] % NEUT 70.2 % 05/09/2023 3:35 PM [facility] % LYMPH 16.8 % 05/09/2023 3:35 PM [facility] % MONO 7.5 % 05/09/2023 3:35 PM [facility] % EOS 5.1 % 05/09/2023 3:35 PM [facility] % BASO 0.4 % 05/09/2023 3:35 PM [facility] ABSOLUTE NEUTROPHILS 5.0 1.7 - 7.0 thou/cu mm 05/09/2023 3:35 PM FULL STACK SOFTWARE DEVELOPER [facility] ABSOLUTE LYMPHOCYTES 1.2 0.9 - 2.9 thou/cu mm 05/09/2023 3:35 PM FULL STACK SOFTWARE DEVELOPER [facility] ABSOLUTE MONOCYTES 0.5 <0.9 thou/cu mm 05/09/2023 3:35 PM FULL STACK SOFTWARE DEVELOPER [facility] ABSOLUTE EOSINOPHILS 0.4 <0.5 thou/cu mm 05/09/2023 3:35 PM FULL STACK SOFTWARE DEVELOPER [facility] ABSOLUTE BASOPHILS 0.0 <0.3 thou/cu mm 05/09/2023 3:35 PM FULL STACK SOFTWARE DEVELOPER [facility] Blood BLOOD SPECIMEN / Unknown Line/Port / Unknown 05/09/2023 3:26 PM FULL STACK SOFTWARE DEVELOPER 05/09/2023 3:31 PM FULL STACK SOFTWARE DEVELOPER Narrative [facility] - 05/09/2023 3:35 PM FULL STACK SOFTWARE DEVELOPER This procedure was originally ordered at [facility]. This procedure was originally ordered at [facility]. Claudette Ansari MD HEMATOLOGY Performing Organization Address City/[facility]/ZIP Co de Phone Number [facility] [address] [place] [phone] * IRON PLUS IRON BINDING CAP (05/09/2023 3:26 PM FULL STACK SOFTWARE DEVELOPER) IRON 47 37 - 145 ug/dL 05/10/2023 1:52 PM FULL STACK SOFTWARE DEVELOPER [facility] UIBC (UNSATURATED) 257 112 - 347 ug/dL 05/10/2023 1:52 PM FULL STACK SOFTWARE DEVELOPER [facility] IRON BINDING CAPACITY 304 250 - 400 ug/dL 05/10/2023 1:52 PM FULL STACK SOFTWARE DEVELOPER [facility] IRON,% SATURATION 15 14 - 50 % 05/10/2023 1:52 PM FULL STACK SOFTWARE DEVELOPER [facility] Blood BLOOD SPECIMEN / Unknown Line/Port / Unknown 05/09/2023 3:26 PM FULL STACK SOFTWARE DEVELOPER 05/09/2023 3:31 PM FULL STACK SOFTWARE DEVELOPER Claudette Ansari MD [facility] [address] [place] [phone], [place] * FERRITIN (05/09/2023 3:26 PM FULL STACK SOFTWARE DEVELOPER) FERRITIN 89.1 15.0 - 150.0 ng/mL 05/10/2023 1:52 PM FULL STACK SOFTWARE DEVELOPER [facility] Blood BLOOD SPECIMEN / Unknown Line/Port / Unknown 05/09/2023 3:26 PM FULL STACK SOFTWARE DEVELOPER 05/09/2023 3:31 PM FULL STACK SOFTWARE DEVELOPER Claudette Ansari MD CHEMISTRY Performing Organization Address City/[facility] Co de Phone Number [facility] [address] [place] [id number], [place] * XR CENTRAL VENOUS CATHETER FLUORO (05/07/2023 4:01 PM FULL STACK SOFTWARE DEVELOPER) Anatomical Region Laterality Modality CHEST, HEART X-Ray Angiograph y Jess Key DO FLUOROSCOPY * Supraglottic (05/07/2023 2:34 PM FULL STACK SOFTWARE DEVELOPER) Narrative Terri Corey CRNA - 05/07/2023 2:34 PM FULL STACK SOFTWARE DEVELOPER Terri Corey CRNA ? 05/07/2023 ??2:34 PM Procedure: Supraglottic Patient location during procedure: OR Supraglottic Airway Properties Mask Ventilation: not attempted Type: i-gel Tube Size: 4 Insertion Attempts: 1 Placement Verification: auscultation and CO2 detection Assessment Assessment: atraumatic and dentition unchanged Airway Intervention: secured Terri Corey CRNA ANESTHESIA PX NO TE ORDERABLES * MR BRAIN W/WO CONTRAST (04/23/2023 1:40 PM FULL STACK SOFTWARE DEVELOPER) Anatomical Region Laterality Modality BRAIN, HEAD Magnetic Resonan ce 04/23/2023 1:57 PM FULL STACK SOFTWARE DEVELOPER Impressions 04/23/2023 1:57 PM FULL STACK SOFTWARE DEVELOPER 1. No acute intracranial abnormality. 2. No abnormal enhancement or enhancing lesions. No intracranial metastases 3. Mild to moderate generalized volume loss. Scattered patchy T2/FLAIR signal hyperintensity within the white matter of both cerebral hemispheres consistent with chronic deep white matter small vessel ischemic changes. 4. Small bilateral mastoid effusions Dictated by Tyler Saunders MD @ 04/23/2023 1:57:20 PM (Electronically Signed) Narrative 04/23/2023 1:57 PM FULL STACK SOFTWARE DEVELOPER For Patients: ??As a result of the Cures Act, medical imaging exams and procedure reports are released immediately into your electronic medical record. ??You may view this report before your referring provider. ??If you have questions, please contact your health care provider. INDICATION: Lung cancer. Staging. COMPARISON: None. TECHNIQUE: Multiplanar T1, T2, FLAIR and diffusion-weighted imaging. Post gadolinium T1 weighted sequences. FINDINGS: Mild to moderate generalized volume loss. Scattered patchy T2/FLAIR signal hyperintense within the white matter of both cerebral hemispheres consistent with chronic deep white matter small vessel ischemic changes. Compensatory mild dilatation ventricular system. Intracranial vascular flow voids are preserved. No mass effect or midline shift. No restricted diffusion to suggest acute ischemia. No abnormal enhancement or enhancing lesions. Bilateral orbits are unremarkable. Normal appearing sella. Visualized paranasal sinuses are unremarkable. Small bilateral mastoid effusions. Procedure Note Tyler Saunders MD, PhD - 04/23/2023 For Patients: As a result of the Cures Act, medical imagingexams and procedure reports are released immediately into your electronicmedical record. You may view this report before your referring provider.If you have questions, please contact your health care provider. INDICATION: Lung cancer. Staging. COMPARISON: None. TECHNIQUE: Multiplanar T1, T2, FLAIR and diffusion-weighted imaging. Post gadoliniumT1 weighted sequences. FINDINGS: Mild to moderate generalized volume loss. Scattered patchy T2/FLAIR signalhyperintense within the white matter of both cerebral hemispheresconsistent with chronic deep white matter small vessel ischemic changes.Compensatory mild dilatation ventricular system. Intracranial vascularflow voids are preserved. No mass effect or midline shift. No restricted diffusion to suggest acute ischemia. No abnormal enhancement or enhancing lesions. Bilateral orbits are unremarkable. Normal appearing sella. Visualized paranasal sinuses are unremarkable. Small bilateral mastoideffusions. IMPRESSION: 1. No acute intracranial abnormality. 2. No abnormal enhancement or enhancing lesions. No intracranialmetastases 3. Mild to moderate generalized volume loss. Scattered patchy T2/FLAIRsignal hyperintensity within the white matter of both cerebral hemispheresconsistent with chronic deep white matter small vessel ischemic changes. 4. Small bilateral mastoid effusions Dictated by Tyler Saunders MD @ 04/23/2023 1:57:20 PM (Electronically Signed) Claudette Ansari MD MR * PLATELET COUNT (04/11/2023 6:15 AM FULL STACK SOFTWARE DEVELOPER) PLATELET COUNT 141 140 - 440 thou/cu mm 04/11/2023 7:11 AM FULL STACK SOFTWARE DEVELOPER [facility] MPV 10.7 6.5 - 11.0 fL 04/11/2023 7:11 AM FULL STACK SOFTWARE DEVELOPER [facility] Blood BLOOD SPECIMEN / Unknown Venipuncture / Unknown 04/11/2023 6:15 AM FULL STACK SOFTWARE DEVELOPER 04/11/2023 6:50 AM FULL STACK SOFTWARE DEVELOPER Mercedez HARVEY [facility]OLOG[facility] [address] [place] [id number], [place] * XR CHEST 1 VIEW PORTABLE (04/09/2023 12:06 PM FULL STACK SOFTWARE DEVELOPER) Only the most recent of3 resultswithin the time period is included. Anatomical Region Laterality Modality HEART, THORAX, CHEST Digital Rad iography 04/09/2023 1:34 PM FULL STACK SOFTWARE DEVELOPER Narrative 04/09/2023 1:34 PM FULL STACK SOFTWARE DEVELOPER For Patients: ??As a result of the 21st Century Cures Act, medical imaging exams and procedure reports are released immediately into your electronic medical record. ??You may view this report before your referring provider. ??If you have questions, please contact your health care provider. Indication: Chest tube clamping. Technique: Chest 1 view. Comparison: April 09, 2023. Findings/Impression: Cardiovascular and mediastinum: Heart size and vasculature are normal in caliber and appearance. Lungs and pleural space: Left-side chest tube unchanged in position. Minimal left basilar atelectasis. Remainder of the lungs and pleural spaces are clear. No pneumothorax. Bones and soft tissues: No acute findings. Dictated by Gen Robles MD @ Apr 09 2023 ??1:34PM (Electronically Signed) ?? Procedure Note Gen Robles MD - 04/09/2023 For Patients: As a result of the Cures Act, medical imagingexams and procedure reports are released immediately into your electronicmedical record. You may view this report before your referring provider.If you have questions, please contact your health care provider. Indication: Chest tube clamping. Technique: Chest 1 view. Comparison: April 09, 2023. Findings/Impression: Cardiovascular and mediastinum: Heart size and vasculature are normal incaliber and appearance. Lungs and pleural space: Left-side chest tube unchanged in position.Minimal left basilar atelectasis. Remainder of the lungs and pleuralspaces are clear. No pneumothorax. Bones and soft tissues: No acute findings. Dictated by Gen Robles MD @ Apr 09 2023 1:34PM (Electronically Signed) [facility] * (ABNORMAL) GLUCOSE METER (04/08/2023 1:27 PM FULL STACK SOFTWARE DEVELOPER) GLUCOSE METER 238(H) 65 - 100 mg/dL 04/08/2023 1:29 PM FULL STACK SOFTWARE DEVELOPER [facility] Blood BLOOD SPECIMEN / Unknown 04/08/2023 1:27 PM FULL STACK SOFTWARE DEVELOPER 04/08/2023 1:28 PM FULL STACK SOFTWARE DEVELOPER Beto Rinaldi MD CHEMISTRY Performing Organization Address City/[facility]/ZIP Co de Phone Number [facility] [address] [place] [address], [place] * FOCUS (04/08/2023 11:47 AM FULL STACK SOFTWARE DEVELOPER) Tissue (Left Lower Lobe Lung) 04/08/2023 11:47 AM FULL STACK SOFTWARE DEVELOPER 04/10/2023 1:24 PM FULL STACK SOFTWARE DEVELOPER Beto Rinaldi MD LABORATORY Performing Organization Address City/[facility]/ZIP Co de Phone Number [facility] [address] [place] [address], [place] * HCHG CATH PR5, HCHG ANES US GUIDE FOR VASC ACCESS, HCHG TUBING PR1, HCHG TUBING PR20, HCHG DRSG PR1, HCHG DRSG PR5, HCHG KIT PR5 (04/08/2023 10:34 AM FULL STACK SOFTWARE DEVELOPER) Tyler Logan MD - 04/08/2023 10:34 AM FULL STACK SOFTWARE DEVELOPER Tyler Chris MD ? 04/08/2023 10:35 AM Arterial Line Patient location during procedure: OR Indications: lab sampling and monitoring Requesting provider: Beto Rinaldi MD Staffing Preanesthetic Checklist Completed: patient identified, risks and benefits discussed, consent obtained and timeout performed Arterial Line Patient position: supine. ??Comment:. Laterality: left Site: radial Ultrasound guidance: live ultrasound, ultrasound permanent image saved and sterile gel and probe cover used in ultrasound-guided central venous catheter insertion. Ultrasound Indication: arteriosclerosis Needle localization (ultrasound): no pathologic findings, selected vessel patent, anatomically normal, potential access sites evaluated and needle visualized entering selected vessel. Securement/dressing: Biopatch applied, dressing applied. ??Comment: Needle Catheter size: 20 G. ??Comment:. Catheter length: 4.5 cm. ??Comment: Events: no complications. Tyler Chris MD ANESTHESIA PX N OTE ORDERABLES * HCHG TUBE TRACH PR40, HCHG INSTRUMENT DISP PR10, HCHG STYLET PR1 (04/08/2023 10:20 AM FULL STACK SOFTWARE DEVELOPER) Narrative Ivory Mendiola CRNA - 04/08/2023 10:20 AM FULL STACK SOFTWARE DEVELOPER Ivory Mendiola CRNA ? 04/08/2023 10:23 AM Procedure: ETT Patient location during procedure: OR ETT Properties Mask Ventilation: easy Final Technique: video laryngoscopy and cricoid pressure Type: ETT - double lumen left Location: oral Cuffed: yes Stylet: yes Laryngoscope Blade: Glidescope Blade Size: 3 (Lopro) Cormack-Lehane Grade View: 2 Insertion Attempts: 2 Placement Verification: end tidal CO2 and fiber optic visualization Assessment: pharynx clear and dentition unchanged Difficulty: 1 (somewhat) Difficulty Comment: small mouth and limited neck mobility Tube Size: 35 Fr and 37 Fr (Unable to pass 37fr) Failed Technique: video laryngoscopy (37Fr tube too large, obstructing view, difficult angle due to small mouth and short neck) Tyler Chris MD ANESTHESIA PX N OTE ORDERABLES * XR FLUORO BRONCHOSCOPY (04/08/2023 9:22 AM FULL STACK SOFTWARE DEVELOPER) Anatomical Region Laterality Modality CHEST Other Narrative 04/08/2023 6:24 AM FULL STACK SOFTWARE DEVELOPER 4 minutes 3 seconds fluoroscopy time was provided. ??See operative/procedure report for further information. Beto Rinaldi MD FLUOROSCOPY * PATH NON BIN CLEANER CYTOLOGY (04/08/2023 9:01 AM FULL STACK SOFTWARE DEVELOPER) Case Report Medical Cytology Report ? Case: [id number] ? Authorizing Provider: ??Beto Rinaldi MD Collected: ? 04/08/2023 0901 ? Ordering Location: ? [facility] ?Received: ?04/08/2023 1034 ? Hospital ? Pathologist: ? Samina Boo MD ? Specimens: ?? A) - Station 7 Subcarinal Lymph Node, 6 pass ? B) - Station 4R Lower Paratracheal Lymph Node, 3 pass ? C) - Station 4L Lower Paratracheal Lymph Node, 2 pass ? D) - Station 11L Interlobar Lymph Node, 3 pass ? E) - Left Lower Lobe Lung, needle and forceps ? 04/09/2023 5:32 PM [facility] LABOR[facility]-C ENTRAL LABORATORY Final Diagnosis A) LYMPH NODE, STATION 7 [...] NODE, STATION 11 L INTERLOBAR, ENDOBRONCHIAL ULTRASOUND-GUIDED FINE-NEEDLE ASPIRATION: 1. Negative for malignancy 2. Lymphocytes consistent with sampled lymph node E) LUNG, LEFT, LOWER LOBE, TRANSBRONCHIAL FINE NEEDLE ASPIRATION AND FORCEPS BIOPSY WITH TOUCH IMPRINTS: 1. ??Positive for malignancy; poorly differentiated non-small cell carcinoma, consistent with pulmonary primary 2. ??See comment 04/09/2023 5:32 PM FULL STACK SOFTWARE DEVELOPER [facility] LABORAT[facility]-C ENTRAL LABORATORY Comment E) Final classification of the non-small cell carcinoma and appropriate ancillary testing are deferred to the same day pulmonary resection specimen. See [id number]. 04/09/2023 5:32 PM [facility]AT[facility]-C ENTRAL LABORATORY Clinical Information 4.8 x 2.2 cm left lower lobe lung mass, former [id number] smoker. See also subsequent resection specimen [id number]. 04/09/2023 5:32 PM [facility] LAB[facility]-C ENTRAL LABORATORY Gross Description A) Received identified as Station 7 Subcarinal Lymph Node, is a fine needle aspirate specimen. The specimen consists of: ? -6 Air dried slides ? -1 CytoLyt vial ? -0 RPMI vials ? -1 Formalin vial The following were prepared from the specimen submitted: ? -6 Diff-Quik stained slides ? -1 Papanicolaou stained ThinPrep slide ? -1 H&E stained cell block slide A2 Cell block material was removed from the patient and placed directly in formalin at 0845 on 04/08/23 and fixed in formalin at least 6 hours and no more than 72 hours. B) Received identified as Station 4R Lower Paratracheal Lymph Node, is a fine needle aspirate specimen. The specimen consists of: ? -3 Air dried slides ? -1 CytoLyt vial ? -0 RPMI vials ? -1 Formalin vial The following were prepared from the specimen submitted: ? -3 Diff-Quik stained slides ? -1 Papanicolaou stained ThinPrep slide ? -1 H&E stained cell block slide B2 Cell block material was removed from the patient and placed directly in formalin at 0855 on 04/08/23 and fixed in formalin at least 6 hours and no more than 72 hours. C) Received identified as Station 4L Lower Paratracheal Lymph Node, is a fine needle aspirate specimen. The specimen consists of: ? -2 Air dried slides ? -1 CytoLyt vial ? -0 RPMI vials ? -1 Formalin vial The following were prepared from the specimen submitted: ? -2 Diff-Quik stained slides ? -1 Papanicolaou stained ThinPrep slide ? -1 H&E stained cell block slide C2 Cell block material was removed from the patient and placed directly in formalin at 0900 on 04/08/23 and fixed in formalin at least 6 hours and no more than 72 hours. D) Received identified as Station 11L Interlobar Lymph Node, is a fine needle aspirate specimen. The specimen consists of: ? -3 Air dried slides ? -1 CytoLyt vial ? -0 RPMI vials ? -1 Formalin vial The following were prepared from the specimen submitted: ? -3 Diff-Quik stained slides ? -1 Papanicolaou stained ThinPrep slide ? -1 H&E stained cell block slide D2 Cell block material was removed from the patient and placed directly in formalin at 0910 on 04/08/23 and fixed in formalin at least 6 hours and no more than 72 hours. E) Received identified as LLL lung nodule is a fine needle aspiration and forceps biopsy specimen. The following were received: ? -4 Air dried slides ? -1 Formalin vial ? -1 CytoLyt vial ? -0 RPMI vials The following were prepared from the specimen submitted: ? -4 Diff-Quik stained slides ? -1 Papanicolaou stained ThinPrep slide ? -1 H&E stained cell block slide E2 Cell block material was removed from the patient and placed directly in formalin at 0940 on 04/08/23 and fixed in formalin at least 6 hours and no more than 72 hours. 04/09/2023 5:32 PM [facility] Adequacy Assessment A) Dr. Sanabria assessed adequacy from the air-dried smears at the time of the procedure with an impression of Adequate-lymphs . B) Dr. Sanabria assessed adequacy from the air-dried smears at the time of the procedure with an impression of Adequate-scant lymphs. C) Dr. Sanabria assessed adequacy from the air-dried smears at the time of the procedure with an impression of Adequate-scant lymphs. D) Dr. Sanabria assessed adequacy from the air-dried smears at the time of the procedure with an impression of Adequate-lymphs . E) Dr. Sanabria assessed adequacy from the air-dried smears at the time of the procedure with an impression of Adequate-maligna nt. 04/09/2023 5:32 PM FULL STACK SOFTWARE DEVELOPER [facility] EN[facility]AL LAB[facility]ATORY Microscopic Description A-E) Specimen adequacy: Adequate for interpretation. All slides were reviewed. The microscopic appearance substantiates the diagnosis. 04/09/2023 5:32 PM FULL STACK SOFTWARE DEVELOPER [facility]-C ENTRCA LABORATORY Additional Information Cytology is screened at [facility], Central Laboratory - [address] [place] [address] and [facility] - [address] [place] [address] and [facility] - [address] [place] [address] Interpreted at [facility], Central Laboratory - [address], [place] [address] 04/09/2023 5:32 PM FULL STACK SOFTWARE DEVELOPER [facility] LAB[facility]- ENTRCA LABORATORY Aspirate (Station 7 Subcarinal Lymph Node) 04/08/2023 9:01 AM FULL STACK SOFTWARE DEVELOPER 04/08/2023 10:34 AM FULL STACK SOFTWARE DEVELOPER Specimen obtained by aspiration (specimen) (Station 4R Lower Paratracheal Lymph Node) 04/08/2023 9:07 AM FULL STACK SOFTWARE DEVELOPER 04/08/2023 10:34 AM FULL STACK SOFTWARE DEVELOPER Specimen obtained by aspiration (specimen) (Station 4L Lower Paratracheal Lymph Node) 04/08/2023 9:11 AM FULL STACK SOFTWARE DEVELOPER 04/08/2023 10:34 AM FULL STACK SOFTWARE DEVELOPER Specimen obtained by aspiration (specimen) (Station 11L Interlobar Lymph Node) 04/08/2023 9:22 AM FULL STACK SOFTWARE DEVELOPER 04/08/2023 10:34 AM FULL STACK SOFTWARE DEVELOPER Specimen obtained by aspiration (specimen) (Left Lower Lobe Lung) 04/08/2023 9:22 AM FULL STACK SOFTWARE DEVELOPER 04/08/2023 10:34 AM FULL STACK SOFTWARE DEVELOPER Beto Rinaldi MD PATHOLOGY/CYTOL OGY [facility] LABOR[facility]-CENTRAL LABORATORY [address] [place] [address], [place] * PATH TISSUE EXAM (04/08/2023 8:29 AM FULL STACK SOFTWARE DEVELOPER) Case Report Pathology Report ?Case: [id number] ? Authorizing Provider: ??Beto Rinaldi MD Collected: ? 04/08/2023 0829 ? Ordering Location: ? [facility] ?Received: ?04/08/2023 1032 ? Hospital ? Pathologist: ? Noel Petty MD ? Specimens: ?? A) - Left Lung, Left lower lobe lung mass: 2 forceps, 3 needles ? B) - Station 7 Subcarinal Lymph Node ? C) - Station 11L Interlobar Lymph Node, 2 nodes ? D) - Left Lower Lobe Lung ? E) - Station 5 Subaortic Lymph Node ? 4 4:45 PM FULL STACK SOFTWARE DEVELOPER [facility]- CENTRAL LABORATORY Amendment 04/11/2023 - Amendmen t issued to report PD-L1 results. See final diagnosis section. 04/16/2023 - Amendment to report [facility] Lung Targeted Next Generation Sequencing results. Please see attached scanned report and updated diagnosis. 4 4:45 PM FULL STACK SOFTWARE DEVELOPER [facility]AL LAB[facility]ATORY Final Diagnosis A) Specimen submitted as part [...] LOWER LOBE, LOBECTOMY: 1. Invasive adenocarcinoma (solid): ?? a. Size of invasive component: 6.1 cm ?? b. Overall size of the tumor (invasive and non-invasive component): 6.1 cm ?? c. Surgical margins: Negative ?? d. Visceral pleural invasion: Present ?? e. Spread through airspaces (RICARDO): ??Present 2. Lymph nodes: Positive for metastatic adenocarcinoma in 1 intraparenchymal lymph node (out of a total of 10 lymph nodes associated with the lobectomy), see comment 3. See final stage section below for complete details 4. Additional findings: Emphysema 5. Ancillary testing: ?? a. PD-L1: ?- Tumor Proportion Score (TPS): 40% (PD-L1 expression, TPS greater than or equal to 1% and less than 50%) ?- Tumor Cell (TC): 40% (Expression, TC greater than or equal to 1%) ?? b. NGS (lung panel): ?- Positive for KRAS Q61L mutation; see attached report E) LYMPH NODE, STATION 5, SUBAORTIC, RESECTION: Negative for malignancy (1 benign lymph node) 4:45 PM [facility] LABORATORY- CENTRAL LABORATORY Amendment electronically signed by Noel Petty MD on 04/16/2023 at 4:45 PM Amendment electronically signed by Jake Cottrell MD on 04/11/2023 at 10:28 AM Comment B, C) The foci of metastatic [...] intraparenchymal lymph nodes was positive for metastatic carcinoma. I discussed the findings with Dr. Beto Rinaldi on 04-10-2023. LUNG ANCILLARY TESTING PROTOCOL Slides available for [facility] NGS testing: D12 Blocks available for [facility] NGS testing: D12 Blocks available for tests using immunostains and/or FISH (requiring 100 cells): D12 Blocks available for send out (outside vendor) testing requiring 5 x 5 mm of tumor: D12 This patient's sample meets [facility] Thoracic Oncology Program Committee criteria* for reflex testing or such testing has been requested by the ordering physician. Testing will be performed, and the results will be communicated in an amendment to this report. There is no need to call to order the above tests. If there is a need for ancillary tests other than these, please contact the [facility] Pathology Consult [facility] ([phone]). *[place] Thoracic Oncology Program Committee reflex testing criteria: Stage IV pulmonary non-small cell carcinoma OR Tumor size >= 4 cm, or lymph node involvement, pulmonary non-small cell carcinoma, neoadjuvant setting OR Resected stage IB - IIIB pulmonary non-small cell carcinoma, adjuvant setting (if not previously performed) - [facility] Lung NGS panel (EGFR, ALK, ROS1, RET, MET, KRAS, BRAF, HRAS, NRAS, ERBB2, NTRK1/2/3) - [facility] PD-L1 SP263 - If RNA NGS fusion analysis fails, FISH for ALK and ROS1 fusion will be attempted 4 4:45 PM [facility] Clinical Information Lung cancer. Immediately prior to the surgery, bronchoscopy with EBUS was performed with sampling of lymph nodes at station 7, station 4R, station 4L, station 11 L, and the left lower lobe lung mass itself. See case [id number] for results. 4 4:45 PM [facility] Gross Description A) The specimen is reported as part of case [id number]. B) Received fresh labeled with the patient's name and station 7 subcarinal lymph node, are 2 bray-brown lymph nodes, 0.5 and 0.7 cm in dimension. ??The specimen is entirely submitted in 1 cassette. JKT 04/09/2023 ?? C) Received fresh labeled with the patient's name and station 11 L interlobar lymph node 2 nodes, are 2 bray-brown lymph nodes, which are 1.4 cm and 1.5 cm in greatest mention. ??One of the lymph nodes is inked blue for differentiation. ??Both lymph nodes are bisected and entirely submitted in 1 cassette. JKT 04/09/2023 ?? D) Received fresh labeled with the patient's name and left lower lobe lung, is a 464.9 gram (inflated), 17.5 x 11.0 x 8.7 cm lung lobectomy specimen with 3 discontinuous staple lines (2.1, 3.7, and 4.8 cm in length) across the hilum. The staple lines are removed and the subjacent tissue is inked blue. There is 0.3 cm of tissue within the staple line. The pleura is pink-bray and focally anthracotic with a 4.5 x 2.7 cm area of significant focally ragged induration (inked green); the pleural surface of the anatomically oriented fissure is inked orange. Mass: Size: 6.1 x 5.4 x 2.6 cm Description: Sectioning reveals a well-defined firm bray-white mass with irregular well-defined borders and a central 3.2 x 1.8 x 1.4 cm irregular area of cavitation containing red-brown blood clot material. ??The mass focally abuts the bronchial network, with possible (though not grossly definitive) involvement. Distance from bronchial margin: 5.8 cm Distance to hilar parenchymal margin (Inked:blue): 6.9 cm (includes 0.3 cm of tissue in staple line) Distance from pleura (Inked:green): Abutting (department store salesperson blocks submitted in cassette(s) 7, 8, 10, 11) The remaining lung parenchyma is homogenous, spongy, and ranges from bray to red-brown. No additional lesions or masses are identified. ??There are 3 anthracotic intraparenchymal lymph nodes ranging from 0.5 cm to 1.2 cm in greatest dimension. ??There are 6 anthracotic hilar lymph nodes present ranging from 0.3 cm to 1.5 cm in greatest dimension. ??Separately received in the same container is 1 anthracotic lymph nodes ranging measuring 2.2 cm in greatest dimension. An annotated photograph is uploaded to the case. Medical [employer] Coder sections are submitted as follows: 1. ??Bronchial margins, en face 2. ??Vascular margins, en face 3. ??Parenchymal margin closest to mass, perpendicular 4-12. ??Mass, sequentially from superior to inferior 4. ??Superior mass end-cap 5. ??Mass with cavitary component and possible involvement of bronchial network 6-9. ??Composite section of second greatest dimension of mass (5.4 cm) abutting indurated/ragged pleural surface (inked green) and adjacent uninvolved lung parenchyma; sections inked orange along anterior surface 10-11. ??Mass abutting ragged pleural surface (inked green); cavitary component in cassette 10 12. ??Inferior mass end-cap 13. ??Uninvolved lung parenchyma bracketing mass in its greatest dimension (6.1 cm; green inked pleural surface is inferior to mass) 14. ??Random uninvolved lung parenchyma away from mass 15. ??2 intraparenchymal lymph nodes, differentially inked and each bisected 16. ??1 intraparenchymal lymph node, serially sectioned 17. ??1 lymph node (separately received in the same container), bisected 18. ??2 hilar lymph nodes, intact and differentially inked 19. ??2 hilar lymph nodes, differentially inked and each bisected 20. ??2 hilar lymph nodes, differentially inked and each bisected Time removed from patient: 1147 Time placed in formalin: 1210 Date removed and placed in formalin: 04/08/2023 The specimen was fixed in formalin for a minimum of 6 hours and not longer than 72 hours. ADW 04/09/2023 E) Received fresh labeled with the patient's name and station 5 subaortic lymph node, is a 2.3 x 1.1 x 0.5 cm bray-brown lymph node. ??The specimen is serially sectioned and entirely submitted in 1 cassette. JKT 04/09/2023 ?? 4 4:45 PM [facility] Microscopic Description The final diagnosis is based on microscopic examination of appropriate sections of all specimens. Note the specimen A is reported under case [id number]. D) Special stains for elastin were indicated to assess for visceral pleural invasion. The elastic stain was performed and interpreted on blocks D6, D7, D8, D10, and D11. The results are as follows: Block D6: Negative for definite pleural invasion Block D7: Focally POSITIVE for visceral pleura invasion Block D8: Negative for definite pleural invasion Block D10: Negative for definite pleural invasion Block D11: Negative for definite pleural invasion 4 4:45 PM [facility] CENTRAL LABORATORY Molecular Diagnostics Summary Preanalytical microdissection of tissue/cytology slides for Next Generation Sequencing was performed according to laboratory protocol as follows: Microscopic examination was performed by a pathologist, Dr. Cottrell, to determine specimen adequacy and identify areas of tumor for isolation. Areas of tumor selected and marked by the pathologist were manually harvested by a blood bank laboratory professional for nucleic acid extraction. 4 4:45 PM [facility]- CENTRAL LABORATORY SYNOPTIC REPORTING LUNG LUNG - All Specimens 8th Edition - Protocol posted: 12/06/2021 SPECIMEN ?? Procedure: ?Lobectomy ?? Specimen Laterality: ?Left TUMOR ?? Tumor Focality: ?Single focus ?? Tumor Site: ?Lower lobe of lung ?? Tumor Size: ? Total Tumor Size (size of entire tumor): ?Greatest Dimension (Centimeters): 6.1 cm ? Additional Dimension (Centimeters): ?5.4 cm ? Additional Dimension (Centimeters): ?1.5 cm ? Size of Invasive Component: ?Greatest Dimension (Centimeters): 6.1 cm ? Additional Dimension (Centimeters): ?5.4 cm ? Additional Dimension (Centimeters): ?1.5 cm ? Percentage of Total Tumor Size (above): ?99 % ?? Histologic Type: ?Invasive solid adenocarcinoma ? Histologic Patterns Present: ?Acinar: 4 ? Histologic Patterns Present: ?Lepidic: 1 ? Histologic Patterns Present: ?Solid: 55 ? Histologic Patterns Present: ?Micropapillary: 40 ?? Histologic Grade: ?G3, poorly differentiated ?? Spread Through Air Spaces (RICARDO): ?Present ?? Visceral Pleura Invasion: ?Present ?? Direct Invasion of Adjacent Structures: ?Not applicable (no adjacent structures present) ?? Treatment Effect: ?No known presurgical therapy ?? Lymphovascular Invasion: ?Not identified MARGINS ?? Margin Status for Invasive Carcinoma: ?All margins negative for invasive carcinoma ? Closest Margin(s) to Invasive Carcinoma: ?Bronchial ? Distance from Invasive Carcinoma to Closest Margin: ?5.8 cm ?? Margin Status for Non-Invasive Tumor: ?All margins negative for non-invasive tumor REGIONAL LYMPH NODES ?? Lymph Node(s) from Prior Procedures: ?Included ? Prior Lymph Node Procedure(s) Included: ?Station 4R, station 4L sampled by EBUS immediately before surgery ([id number]). They were negative by EBUS. Stations 7 and 11 L were sampled by EBUS, but those nodes were excised during this surgery and are not double counted. ?? Regional Lymph Node Status: ? : ?Tumor present in regional lymph node(s) ? Number of Lymph Nodes with Tumor: ?3 ? Shree Site(s) with Tumor: ?7: Subcarinal ? Shree Site(s) with Tumor: ?11L: Interlobar ? Shree Site(s) with Tumor: ?Left: Intra parenchymal ? Extranodal Extension: ?Not identified ? Number of Lymph Nodes Examined: ?16 (includes 2 nodes from EBUS procedure) ? Shree Site(s) Examined: ?4R: Lower paratracheal ? Shree Site(s) Examined: ?7: Subcarinal ? Shree Site(s) Examined: ?4L: Lower paratracheal ? Shree Site(s) Examined: ?5: Subaortic / aortopulmonary (AP) / AP window ? Shree Site(s) Examined: ?11L: Interlobar ? Shree Site(s) Examined: ?12L: Lobar ? Shree Site(s) Examined: ?Left: 3 intraparenchymal lymph nodes and 1 node in the container from the lung specimen PATHOLOGIC STAGE CLASSIFICATION (pTNM, AJCC 8th Edition) ?? Reporting of pT, pN, and (when applicable) pM categories is based on information available to the pathologist at the time the report is issued. As per the AJCC (Chapter 1, 8th Ed.) it is the managing physician? s responsibility to establish the final pathologic stage based upon all pertinent information, including but potentially not limited to this pathology report. ?? pT Category: ?pT3 ?? pN Category: ?pN2 ADDITIONAL FINDINGS ?? Additional Findings: ?Emphysema 4 4:45 PM [facility] LABORATORY- CENTRAL LABORATORY Additional Information Interpreted at [facility], Central Laboratory - [address] [facility] [address], [place] [address] TEST PERFORMED: PD-L1 (SP263) ANALYSIS BY IMMUNOHISTOCHEMISTRY MATERIALS AND METHODS: ??- Adequate number of tumor cells are present on the re-cut H&E stain section. Minimum number of tumor cells required is 100 viable tumor cells ??- The positive and negative control tissue demonstrate appropriate staining TESTING INFORMATION FOR PD-L1 ANALYSIS: PD-L1 assayed by immunohistochemistry with microscopy, following tissue fixation in 10% neutral buffered formalin. Tissue sections are incubated with a PD-L1 rabbit monoclonal antibody ([employer] PD-L1 SP263 assay), performed on the [employer] BenchMark ULTRA instrument and visualized with OptiView DAB IHC Detection kit and OptiView Amplification Kit. PD-L1 22C3 Tumor Proportion Score (TPS) Interpretation Guidelines for non-small cell lung carcinoma: Tumor Proportion Score is determined by manual morphometry evaluating the number of tumor cells with partial or complete membranous staining (1+ intensity or more) divided by the total number of viable tumor cells. TPS scoring cut-offs: TPS less than 1% (No PD-L1 expression) TPS greater than or equal to 1% and less than 50% (PD-L1 Expression) TPS greater than or equal to 50% (High PD-L1 expression) Tumor Cell (TC) Interpretation Guidelines for non-small cell lung carcinoma: PD-L1 SP263 Tumor cell Score (TC) is determined by manual morphometry, evaluating the percentage of tumor cells (%TC) with any membrane staining above the background. TC scoring cut-offs: TC less than 1% (Negative) TC greater than or equal to 1% (Expression) This [place] SP263 immunohistochemical antibody assay is considered a laboratory developed test for patients with??non-small cell lung cancer who are being considered for treatment with atezolizumab. This [place] SP263 immunohistochemical antibody assay is considered a laboratory developed test for patients with non-small cell lung carcinoma who are being considered for treatment with pembrolizumab. This SP263 assay has been validated against the FDA approved PharmDX 22C3 assay. ?? The performance of this assay has not been validated on decalcified specimens. Results on decalcified specimens should be interpreted with caution, given the likelihood of a false negative result on decalcified specimens. References N Engl J Med 2020; 383:7322-9906 ?? 10.1056/[id number] J Thorac Oncol 2018;13(3):367-76 https://doi.org/10.101 6/j.jtho.2017.11.112 J Thorac Oncol 2018;13(9):1302-11 ??https://doi.org/10.1 016/j.jtho.2018.05.013 J Thorac Oncol 2017;12(11):7364-63 ??https://doi.org /10.1016/j.jtho.2017.0 7.031 Am J Clin Oncol 202;39(15)suppl:8500 ?? 10.1200/JCO.2021.39.15 _suppl.8500 Disclaimer Support for the interpretation of this case may have included the use of immunohistochemistry and/or in situ hybridization tests that were performed by [facility] and whose performance characteristics were evaluated by pathologists from [facility]. These tests have not been cleared or approved by the U.S. Food and Drug Administration. These tests are used for clinical purposes and should not be regarded as investigational or for research. This laboratory is certified under the Clinical Laboratory Improvement Amendments of 1988 (CLIA) as qualified to perform high complexity clinical laboratory testing. 4:45 PM FULL STACK SOFTWARE DEVELOPER [facility]AL LAB[facility] Tissue SPECIMEN FROM LUNG / Unknown 04/08/2023 8:29 AM FULL STACK SOFTWARE DEVELOPER 04/08/2023 10:32 AM FULL STACK SOFTWARE DEVELOPER Tissue specimen (specimen) (Station 7 Subcarinal Lymph Node) 04/08/2023 10:48 AM FULL STACK SOFTWARE DEVELOPER 04/08/2023 10:56 AM FULL STACK SOFTWARE DEVELOPER Tissue specimen (specimen) (Station 11L Interlobar Lymph Node) 04/08/2023 11:19 AM FULL STACK SOFTWARE DEVELOPER 04/08/2023 11:26 AM FULL STACK SOFTWARE DEVELOPER Tissue specimen (specimen) (Left Lower Lobe Lung) 04/08/2023 11:47 AM FULL STACK SOFTWARE DEVELOPER 04/08/2023 12:01 PM FULL STACK SOFTWARE DEVELOPER Tissue specimen (specimen) (Station 5 Subaortic Lymph Node) 04/08/2023 11:51 AM FULL STACK SOFTWARE DEVELOPER 04/08/2023 12:01 PM FULL STACK SOFTWARE DEVELOPER Beto Rinaldi MD PATHOLOGY/[facility]OL [facility] [address] [place] [address], * HCHG TUBE PR1, HCHG INSTRUMENT DISP PR10, HCHG STYLET PR1 (04/08/2023 8:02 AM FULL STACK SOFTWARE DEVELOPER) Narrative Ivory Mendiola CRNA - 04/08/2023 8:02 AM FULL STACK SOFTWARE DEVELOPER Ivory Mendiola, STEEL MELTER ? 04/08/2023 ??8:04 AM Procedure: ETT Patient location during procedure: OR ETT Properties Mask Ventilation: easy Final Technique: video laryngoscopy Type: straight Location: oral Cuffed: yes Tube Size: 8.5 mm Stylet: yes Laryngoscope Blade: Glidescope Blade Size: 3 Cormack-Lehane Grade View: 1 Insertion Attempts: 2 (Direct failed, stiff neck.) Placement Verification: end tidal CO2, symmetrical chest wall movement, fiber optic visualization and cuff palpation Assessment: pharynx clear, atraumatic and dentition unchanged Secured at: 21 Tube secured with: By ENDO. Difficulty: 1 (somewhat) Difficulty Comment: anterior glottis and limited neck mobility Failed Technique: direct laryngoscopy Tyler Chris MD ANESTHESIA PX N OTE ORDERABLES * Type and Screen (04/08/2023 7:10 AM FULL STACK SOFTWARE DEVELOPER) ABORH O Rh Positive 04/08/2023 8:16 AM [facility] ANTIBODY SCREEN Negative Negative 04/08/2023 8:16 AM [facility] SPECIMEN EXPIRATION DATE/TIME 04/11/23 23:59 04/08/2023 8:16 AM [facility] LAB BLOOD BANK Blood BLOOD SPECIMEN / Unknown Non-Lab Venipuncture / Unknown 04/08/2023 7:10 AM FULL STACK SOFTWARE DEVELOPER 04/08/2023 7:31 AM FULL STACK SOFTWARE DEVELOPER [place] [facility] B[facility] BLOOD BANK [address] [place] [address], * RED BLOOD CELLS EA UNIT (04/08/2023 7:10 AM FULL STACK SOFTWARE DEVELOPER) Only the most recent of2 resultswithin the time period is included. CROSSMATCH Compatible Compatible [facility] LAB-C[facility]TRAL LAB BLOOD BANK PRODUCT BLOOD TYPE O Rh Positive [facility]LOOD B[facility] PRODUCT ID NUMBER [id number] [facility] BLOOD B[facility] PRODUCT STATUS /Relea sed [facility] BLOOD B[facility] PRODUCT DESCRIPTION RBC -1 LR [facility] BLOOD BANK PRODUCT CODE [id number] [facility]-CENTRAL LAB BLOOD BANK [place] [facility] BLOOD BANK Performing Organization Address City/[facility]/ZIP Co de Phone Number [facility] BLOOD BANK [address] [place] [address], * (ABNORMAL) BUN (04/08/2023 7:01 AM FULL STACK SOFTWARE DEVELOPER) BUN 33(H) 8 - 23 mg/dL 04/08/2023 8:02 AM FULL STACK SOFTWARE DEVELOPER [facility] Blood BLOOD SPECIMEN / Unknown Butterfly / Unknown 04/08/2023 7:01 AM FULL STACK SOFTWARE DEVELOPER 04/08/2023 7:30 AM FULL STACK SOFTWARE DEVELOPER [place] [facility] CHEMISTRY [facility] [address] [place] [phone], * Potassium (04/08/2023 7:01 AM FULL STACK SOFTWARE DEVELOPER) POTASSIUM 3.9 3.5 - 5.1 mmol/L 04/08/2023 8:02 AM FULL STACK SOFTWARE DEVELOPER [facility] Blood BLOOD SPECIMEN / Unknown Butterfly / Unknown 04/08/2023 7:01 AM FULL STACK SOFTWARE DEVELOPER 04/08/2023 7:30 AM FULL STACK SOFTWARE DEVELOPER [place] HAR[facility] CHEMISTRY Performing Organization Address [facility] Co de Phone Number [facility]ORY [address] [place] [address], * (ABNORMAL) Creatinine (04/08/2023 7:01 AM FULL STACK SOFTWARE DEVELOPER) eGFR 50(L) >90 mL/min/1.7 3m2 04/08/2023 8:02 AM FULL STACK SOFTWARE DEVELOPER [facility] TRAL LABORATORY Comment:As of 2021, eG FR is calculated by the CKD-EPI creatinine equation without race adjustment. ??eGFR can be influenced by muscle mass, exercise, and diet. ??The reported eGFR is an estimation only and is only applicable if the renal function is stable. CREATININE 1.11(H) 0.50 - 0.90 mg/dL 04/08/2023 8:02 AM FULL STACK SOFTWARE DEVELOPER [facility] TRA LABORATORY Blood BLOOD SPECIMEN / Unknown Butterfly / Unknown 04/08/2023 7:01 AM FULL STACK SOFTWARE DEVELOPER 04/08/2023 7:30 AM FULL STACK SOFTWARE DEVELOPER [place] HARVEY CHEMISTRY Performing Organization Address [facility] Co de Phone Number [facility] [address] [place] [address], [place] * Protime - INR (04/08/2023 7:00 AM FULL STACK SOFTWARE DEVELOPER) INR 1.1 <1.3 04/08/2023 7:44 AM FULL STACK SOFTWARE DEVELOPER [facility] PROTIME 11.8 10.3 - 12.3 sec 04/08/2023 7:44 AM FULL STACK SOFTWARE DEVELOPER [facility] Blood BLOOD SPECIMEN / Unknown Butterfly / Unknown 04/08/2023 7:00 AM FULL STACK SOFTWARE DEVELOPER 04/08/2023 7:30 AM FULL STACK SOFTWARE DEVELOPER Narrative [facility] - 04/08/2023 7:44 AM FULL STACK SOFTWARE DEVELOPER ?Therapeutic Range 2.0-3.0 for most anticoagulated patients 2.5-3.5 or 4.0 for high risk patients The INR is only used for patients on stable oral anticoagulant therapy. It makes no significant contribution to the diagnosis or treatment of patients whose Protime is prolonged for other reasons. INR results are increased when heparin levels exceed 1.0 U/mL, which corresponds to an aPTT >125 seconds if the patient is on UFH. [place] [facility] HEMATOLOGY [facility] [address] [place] [address], * CT CHEST WO (04/08/2023 5:48 AM FULL STACK SOFTWARE DEVELOPER) Anatomical Region Laterality Modality CHEST, THORAX, HEART Computed To mography 04/08/2023 6:58 AM FULL STACK SOFTWARE DEVELOPER Impressions 04/08/2023 6:58 AM FULL STACK SOFTWARE DEVELOPER 1. Left lower lobe multilocular air-filled cavity with a large solid component worrisome for malignancy. 2. Multiple ground-glass nodules in the right lung, the 6 mm. Several small solid nodules elsewhere. Follow-up to be determined based on the histology of the left lower lobe mass. Please note that all CT scans at this facility use dose modulation, iterative reconstruction, and/or weight-based dosing when appropriate to reduce radiation dose to as low as reasonably achievable. Dictated by Michelle Metzger MD @ 04/08/2023 6:58:50 AM (Electronically Signed) Narrative 04/08/2023 6:58 AM FULL STACK SOFTWARE DEVELOPER For Patients: ??As a result of the 21st Century Cures Act, medical imaging exams and procedure reports are released immediately into your electronic medical record. ??You may view this report before your referring provider. ??If you have questions, please contact your health care provider. INDICATION: Lung nodule COMPARISON: 11/10/2019 TECHNIQUE: CT chest without contrast. Multiplanar axial, coronal, and sagittal reformats are included. ION protocol followed. MIP images to improve detection of pulmonary nodules are included. Intravenous contrast: None FINDINGS: Lungs: Inspiratory phase imaging. In the left lower lobe there is a cavitary lesion within eccentric thick nodular soft tissue component. The soft tissue component measures 2.7 x 3.4 x 3.9 cm. The cavitary portion measures 1.8 x 2.9 x 1.9 cm. There are some additional bandlike areas of scarring in both lungs. Area peripheral distortion and reticulation with a small soft tissue nodular component in the left upper lobe. This soft tissue measures 6 mm. There are multiple small ground- glass nodules in the right lung measuring up to 6 mm.. There are several small solid pulmonary nodules bilaterally. No consolidations. Normal appearance of the pulmonary interstitium. Pleura: No pleural effusion. No pneumothorax. Airway: Normal tracheobronchial tree. Lymph nodes: No thoracic adenopathy. Mediastinum: No pneumomediastinum. Heart and great vessels: No pericardial effusion. Aortic valve prosthesis. Normal cardiac chamber size. Moderate atherosclerotic plaques. No aortic aneurysm. Bones: No fractures. No focal bone lesions. Multilevel disc degenerative change. Chest wall: Normal. No masses. Upper abdomen: Normal. Procedure Note Michelle Metzger MD - 04/08/2023 For Patients: As a result of the Century Cures Act, medical imagingexams and procedure reports are released immediately into your electronicmedical record. You may view this report before your referring provider.If you have questions, please contact your health care provider. INDICATION: Lung nodule COMPARISON: 11/10/2019 TECHNIQUE: CT chest without contrast. Multiplanar axial, coronal, and sagittalreformats are included. ION protocol followed. MIP images to improvedetection of pulmonary nodules are included. Intravenous contrast: None FINDINGS: Lungs: Inspiratory phase imaging. In the left lower lobe there is acavitary lesion within eccentric thick nodular soft tissue component. Thesoft tissue component measures 2.7 x 3.4 x 3.9 cm. The cavitary portionmeasures 1.8 x 2.9 x 1.9 cm. There are some additional bandlike areas ofscarring in both lungs. Area peripheral distortion and reticulation with asmall soft tissue nodular component in the left upper lobe. This softtissue measures 6 mm. There are multiple small ground-glass nodules in theright lung measuring up to 6 mm.. There are several small solid pulmonarynodules bilaterally. No consolidations. Normal appearance of the pulmonaryinterstitium. Pleura: No pleural effusion. No pneumothorax. Airway: Normal tracheobronchial tree. Lymph nodes: No thoracic adenopathy. Mediastinum: No pneumomediastinum. Heart and great vessels: No pericardial effusion. Aortic valve prosthesis.Normal cardiac chamber size. Moderate atherosclerotic plaques. No aorticaneurysm. Bones: No fractures. No focal bone lesions. Multilevel disc degenerativechange. Chest wall: Normal. No masses. Upper abdomen: Normal. IMPRESSION: 1. Left lower lobe multilocular air-filled cavity with a large solidcomponent worrisome for malignancy. 2. Multiple ground-glass nodules in the right lung, the 6 mm. Severalsmall solid nodules elsewhere. Follow-up to be determined based on thehistology of the left lower lobe mass. Please note that all CT scans at this facility use dose modulation,iterative reconstruction, and/or weight-based dosing when appropriate toreduce radiation dose to as low as reasonably achievable. Dictated by Michelle Metzger MD @ 04/08/2023 6:58:50 AM (Electronically Signed) Naeem Gu MD CT * SCAN-CARDIAC STRIP (04/08/2023 12:00 AM FULL STACK SOFTWARE DEVELOPER) Narrative 04/08/2023 12:00 AM FULL STACK SOFTWARE DEVELOPER Ordered by an unspecified provider. Other Clinical Staff OTHER * COMPLETE PULMONARY FUNCTION TEST WITH BRONCHODILATOR (04/03/2023 1:47 PM FULL STACK SOFTWARE DEVELOPER) Narrative Procedure Note Hany Cabrera MD - 04/03/2023 1:47 PM CST DATE OF SERVICE: 04/03/2023 DIAGNOSIS: Lung nodule. Normal spirometry. Lung volumes measured by body plethysmography arewithin normal limits. Diffusing capacity is normal. Results are automatically released to your [employer] accountonce available, in compliance with federal regulations. This means thatyou may see your results before your provider has had a chance to reviewthem. Please allow 2-3 business days for your provider to comment on theresults. MD SELENE CARUSO/QUANG/MITA VJID: [id number] TJID: [id number] Naeem Gu MD PFT ORD from Last 3 Months Advance Directives * Full Code (Latest Code Status on File) Date Activated Date Inactivated Comments 05/07/2023 12:03 PM 05/07/2023 6:45 PM Question Answer Comments Code Status Discussion: Reviewed Preferences * Full Code Date Activated Date Inactivated Comments 04/08/2023 1:04 PM 04/11/2023 3:28 PM Question Answer Comments Code Status Discussion: Reviewed Preferences * Full Code Date Activated Date Inactivated Comments 04/08/2023 5:55 AM 04/08/2023 1:03 PM Question Answer Comments Code Status Discussion: Unable to Assess Preferences, Provider to review later * Full Code Date Activated Date Inactivated Comments 03/01/2021 12:48 PM 03/01/2021 4:24 PM Question Answer Comments Code Status Discussion: Other * Full Code Date Activated Date Inactivated Comments 12/23/2020 12:42 PM 12/23/2020 4:51 PM Question Answer Comments Code Status Discussion: Per Existing Order Care Teams Chief Radiology Relationship Specialty Start Date End Date Andrew Rodríguez MD [address] [place] [address] PCP - General Family Practice 09/08/21 Cori Payne MD [address] [place] [address] Psychiatry 09/08/21 Arabella Diaz, RN, BSN [address] [place] [address] Nurse Navigator - Oncology Registered Nurse 03/27/23 Beto Rinaldi MD [address] [place] [address] Surgery - Cardiothoracic 03/28/[address] [address] 04/10/23 aSmina Hay, CADENCE [address] [place] [address] Nurse Navigator - Oncology Registered Nurse 04/15/23 Liset Welch, FLAT HAMMERER [address] [place] [address] Nurse Practitioner Hematology and Oncology 04/29/23 Claudette Ansari MD [address] [place] [address] Medical Oncologist Hematology and Oncology 04/29/23 Davidson Dhillon LSW [address] [place] [address] Pharmacy Retail Support Specialist 04/29/23
--- OUTSIDE RECORDS SUMMARY | 2023-07-01 12:57 | XMS_ITS ---
Author Name Unknown Organization [facility] Address [address] [place] [address] Care Team Providers Care Building Construction Supervisor Name Role Phone Unavailable Unavailable Unavailable Surgery Details Not on file Complications Check Surgery Details section. Procedure Estimated Blood Loss Check Surgery Details section. Procedure Findings Check Surgery Details section. Procedure Specimens Taken Check Surgery Details section.
== END 2023-07-01 12:55 | disposition home or self-care (01) ==
LOC: WOUND 12:54
PROVIDERS: PCP Family Medicine; Visit Provider Nurse Practitioner Family
DX: L89.893 Pressure ulcer of other site, stage 3 (principal); E11.40 Type 2 diabetes mellitus with diabetic neuropathy, unspecified
CPT/HCPCS: 97602

== ENCOUNTER 2023-07-04 11:21 | Outpatient (REF) | payer OTHER, SELFPAY ==
--- OUTSIDE RECORDS SUMMARY | 2023-07-04 11:28 | XMS_ITS | Encounter Summary ---
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 [address] [place] [address] Referral ID Status Reason Start Date Expiration Date Visits Re quested Visits Authorized [id number] Closed 04/16/2023 04/15/2024 1 1 Encounter Details Date Type Department Care Team (Latest Contact Info) Description 04/29/2023 9:07 AM BALE OPENER - 04/29/2023 11:15 AM [facility] Hospital Encounter Department of Radiation Oncology in [place], [place] [address] [place] [phone] Radha Radford M.D. [address] [place] [address] Malignant Neoplasm Of Unspecified Part Of Left [...] Comments Blood Pressure 135/44 04/29/2023 9:23 AM BALE OPENER Pulse 76 04/29/2023 9:23 AM BALE OPENER Temperature 36.1 ??C (97 ??F) 04/29/2023 9:23 AM BALE OPENER Respiratory Rate - - Oxygen Saturation - - Inhaled Oxygen Concentration - - Weight 83.1 kg (183 lb 3.2 oz) 04/29/2023 9:23 A M BALE OPENER Height - - Body Mass Index - - documented in this encounter Medications at Time of Discharge Medication Sig Dispensed Refills Start Date End Date acetaminophen (TYLENOL) 500 mg tablet Take 1,000 mg by mouth. 10/31/2016 amiodarone (PACERONE) 200 mg tablet 200mg 1/day 12/19/2021 amLODIPine (NORVASC) 5 mg tablet Take 5 mg by mouth daily. 03/17/2023 loperamide (IMODIUM A-D) 2 mg capsule Take 4mg by mouth with 1st loose stool, then 2mg with each subsequent loose stool. Max 16 mg in 24 hrs 06/07/2021 nystatin (MYCOSTATIN) 100,000 unit/gram cream Apply topically at bedtime. 09/28/2022 allopurinoL (ZYLOPRIM) 100 mg tablet Take 200 mg by mouth daily. ALPRAZolam (XANAX) 0.5 mg tablet Take 1 tablet by mouth as needed. 01/14/2018 ARIPiprazole (ABILIFY) 5 mg tablet Take 5 [...] tablet Take 137 mcg by mouth. 02/26/2018 metFORMIN (GLUCOPHAGE) 500 mg tablet Take 500 mg by mouth 2 (two) times a day. 05/07/2018 metoprolol succinate (TOPROL-XL) 25 mg 24 hr tablet Take 25 mg by mouth daily. Do not crush or chew. urihhzkxbuqd-zmakcvgb-un tein (CENTURY MATURE) tablet Take 1 tablet by mouth daily. polysaccharide iron complex (Ferrex 150) 150 mg [...] Lung (HCC) 01/13/2023 Other Patient presented to [facility] Emergency room for right low back [...] the same day pulmonary resection specimen. See [id number]. 04/19/2023 Tumor Board Recommendation: All agreed to consider adjuvant chemoimmunotherapy provided MRI brain is negative. No indications for adjuvant radiation therapy. There are clinical trials available in [place] if she is interested. 04/23/2023 Critical Imaging [...] potentially transfer their medical oncology care to [facility], as they live in [place], [place]. We told them to inform Dr. [...] Salgado APRN, C.N.P., D.N.P. 04/29/2023 10:30 AM BALE OPENER [facility] Rad[facility] [address] [place] [address] OPENER Associated attestation - Radha Radford M.D. - 04/29/2023 11:14 AM BALE OPENER RADIATION ONCOLOGY CONSULT I saw and evaluated [...] did explain that I was at the [facility] tumor board and do not recall a specific discussion about adjuvant radiation therapy. I did have the opportunity to present her case at the daily [place] [facility] tumor board and all agreed with [...] by: Radha Radford M.D. 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
--- OUTSIDE RECORDS SUMMARY | 2023-07-04 11:28 | XMS_ITS | Encounter Summary ---
Author Name Unknown Organization [facility] Address [address] [place] [address] Care Team Providers Care Rail Signal Designer Name Role Phone Unavailable Primary Care Provider Unavailabl e Encounter Details Date Type Department Care Team (Late st Contact Info) Description 04/19/2023 Tumor Board Conference Department of Radiation Oncology in [place], [place] [address] [place] [address] Radha Radford M.D. [address] [place] [address] Social History Tobacco Use Types Packs/Day Years [...] therapy. There are clinical trials available in [place] if she is interested. We understand that she will be meeting Drs. Ansari and Malina for evaluations. Radha Radford M.D. Note: Tumor board recommendations are developed via multidisciplinary specialty participation with the most current information available at that time, therefore, final treatment plan is to be decided between the patient and the treating physician. ASOUND TECHNOLOGIST SONOGRAPHER documented in this encounter Plan of Treatment Not on file documented as of this encounter Visit Diagnoses Not on filedocumented in this encounter
--- OUTSIDE RECORDS SUMMARY | 2023-07-04 11:28 | XMS_ITS | Referral Summary ---
Author Name Unknown Organization [facility] Address [address] [place] [address] Care Team Providers Care Iron Guardrail Installer Name Role Phone Unavailable Primary Care Provider Unavailabl e Source Comments Patient records contain information from all sites at [facility]. For routine questions regarding patient records, call [phone] during business hours, M-F 8:00 AM - 5:00 PM Central Time. Record requests for emergency care only can be directed to [phone] at any time.[facility] Encounters Date Type Department Care Team Description 04/29/2023 9:07 AM GIFT SHOP CLERK - 04/29/2023 11:15 AM [facility] Hospital Encounter Department of Radiation Oncology in [address] [address] Radha Radford M.D. 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 from Last 3 Months [...] Comments Blood Pressure 135/44 04/29/2023 9:23 AM GIFT SHOP CLERK Pulse 76 04/29/2023 9:23 AM GIFT SHOP CLERK Temperature 36.1 ??C (97 ??F) 04/29/2023 9:23 AM GIFT SHOP CLERK Respiratory Rate - - Oxygen Saturation - - Inhaled Oxygen Concentration - - Weight 83.1 kg (183 lb 3.2 oz) 04/29/2023 9:23 A M GIFT SHOP CLERK Height - - Body Mass Index - - Plan of Treatment Not on file Medical Devices Implanted Type Area Dairy Department Manager Device Identifier Shelf Expiration Date Model / Serial / Lot Stent Other Stent Other Heart Procedures Procedure Name Priority Date/Time Associated Diagnosis Comments OUTSIDE MR NEURO Routine 04/23/2023 1:15 PM GIFT SHOP CLERK OUTSIDE DX CHEST Routine 04/09/2023 11:4 5 AM GIFT SHOP CLERK OUTSIDE DX CHEST Routine 04/09/2023 12:0 0 AM GIFT SHOP CLERK EXTI GLUCOSE POCT, B Routine 04/08/2023 1:27 PM GIFT SHOP CLERK OUTSIDE XA Routine 04/08/2023 8:15 AM GIFT SHOP CLERK OUTSIDE CT BODY Routine 04/08/2023 5:40 AM GIFT SHOP CLERK EXTI THYROID-STIMULATING HORMONE-SENSITIVE (S-TSH), S Routine 12/19/2021 2:04 PM CDT from Last 3 Months or Most Recently Relevant to Health Maintenance Results * MR HEAD BRAIN WWO-Outside MR Neuro (04/23/2023 1:15 PM GIFT SHOP CLERK) Narrative [facility] - 04/29/2023 10:43 AM GIFT SHOP CLERK This order has been created and auto-finalized to support the import of outside images. If available, original interpretation can be found on the Media Tab in Chart Review, in Document Viewer, or as an image in QREADS. If a re-interpretation or overread is required please follow defined workflow. ?? Provider Not In System IMG MRI PROCEDURE S Performing Organization Address [facility] de Phone Number [facility] NA * XR Chest 1 View Portable-Outside Chest Xray (04/09/2023 11:45 AM GIFT SHOP CLERK) Only the most recent of2 resultswithin the time period is included. Narrative IIVA - 04/16/2023 11:59 AM GIFT SHOP CLERK This order has been created and auto-finalized to support the import of outside images. If available, original interpretation can be found on the Media Tab in Chart Review, in Document Viewer, or as an image in QREADS. If a re-interpretation or overread is required please follow defined workflow. ?? Provider Not In System IMG DIAGNOSTIC IM AGING PROCEDURES Performing Organization Address [facility] de Phone Number [facility]IMS NA * XR FLUORO BRONCHOSCOPY-Outside XA (04/08/2023 8:15 AM GIFT SHOP CLERK) Narrative [facility]IV[facility] - 04/16/2023 11:58 AM GIFT SHOP CLERK This order has been created and auto-finalized to support the import of outside images. If available, original interpretation can be found on the Media Tab in Chart Review, in Document Viewer, or as an image in QREADS. If a re-interpretation or overread is required please follow defined workflow. ?? Provider Not In System IMG NON RAD IMAGI NG PROCEDURES Performing Organization Address [facility] de Phone Number [facility] NA * CT CHEST WO-Outside CT Body (04/08/2023 5:40 AM GIFT SHOP CLERK) Narrative YAQUELIN - 04/16/2023 12:07 PM GIFT SHOP CLERK This order has been created and auto-finalized [...]
--- OUTSIDE RECORDS SUMMARY | 2023-07-04 11:28 | XMS_ITS | Data Portability ---
Author Name Unknown Address [address] [place] [address] Phone [phone] Organization [facility] Address [address] [facility] [address] [facility] [address] [place] [address] Care Team Providers Care Horticultural Manager Name Role Phone SAL RODRIGUES Primary Care Provider [phone] Assessment Encounter Date Assessment Date Assessment LastModified by Organization Details LastModified Time 11/30/2021 11/30/2021 81 year old female with history of kidney stones and kidney disease. Patient more so had questions regarding her kidney disease. I explained that her primary care should refer her to a clinical trial manager if necessary. I encouraged her to speak [...] recorded. Lab urinalysis , dipstick 2021 022 [facility], [address], [address], [place], [address], 13:05:21 Referral None recorded. Procedures None recorded. Surgeries None recorded. Imaging None recorded. Medication Orders None recorded. Patient TargetsNo targets recorded. Patient InstructionsNo instructions recorded. Reason for Referral None Reported. Results Created Date Observation Date Name Description Value Unit Range Abnormal Flag LastModifiedBy Organization Detail LastModifiedTime 12/01/19 22 11/30/2021 UA DIP CS ADVAN TUS color -advantus yellow yellow Not Available [facility] [address], [place], [address], 11/30/2021 13:05:21 12/01/19 22 11/30/2021 UA DIP CS ADVAN TUS appearance -advantus SL cloudy clear abnormal Not Available [facility] [address] [place] [address] [address], [place], [address], 11/30/2021 13:05:21 12/01/19 22 11/30/2021 UA DIP CS ADVAN TUS glucose -advantus 500 mg/dL negati ve abnormal Not Available [facility] [address] [place] [address] [address], [place], [address], 11/30/2021 13:05:21 12/01/19 22 11/30/2021 UA DIP CS ADVAN TUS bilirubin -advantus negati ve negati ve Not Available [facility] [address] [place] [address] [address], [place], [address], 11/30/2021 13:05:21 12/01/19 22 11/30/2021 UA DIP CS ADVAN TUS ketones -advantus negati ve mg/dL negati ve Not Available [facility] [address] [place] [address] [address], [place], [address], 11/30/2021 13:05:21 12/01/19 22 11/30/2021 UA DIP CS ADVAN TUS sp. gravity -advantus 1.020 1.010- 1.025 Not Available [facility] [address] [place] [address] [address], [place], [address], 11/30/2021 13:05:21 12/01/19 22 11/30/2021 UA DIP CS ADVAN TUS pH -advantus 6.0 5.0-8. 0 Not Available [facility] [address], [place], [address], 11/30/2021 13:05:21 12/01/19 22 11/30/2021 UA DIP CS ADVAN TUS protein -advantus negati ve mg/dL negati ve Not Available [facility] [address], [place], [address], 11/30/2021 13:05:21 12/01/19 22 11/30/2021 UA DIP CS ADVAN TUS urobilinogen -advantus 0.2 normal Not Available [facility] [address], [place], [address], 11/30/2021 13:05:21 12/01/19 22 11/30/2021 UA DIP CS ADVAN TUS nitrites -advantus negati ve negati ve Not Available [facility] [address] [place] [address] [address], [place], [address], 11/30/2021 13:05:21 12/01/19 22 11/30/2021 UA DIP CS ADVAN TUS blood -advantus negati ve negati ve Not Available [facility] [address] [place] [address] [address], [place], [address], 11/30/2021 13:05:21 12/01/19 22 11/30/2021 UA DIP CS ADVAN TUS leukocytes -advantus modera te negati ve abnormal Not Available [facility] [address] [place] [address] [address], [place], [address], 11/30/2021 13:05:21 12/01/19 22 11/30/2021 UA DIP CS ADVAN TUS performed by kian Wasserman Not Available [facility] [address] [place] [address] [address], [place], [address], 11/30/2021 13:05:21 12/01/19 22 11/30/2021 UA DIP CS ADVAN TUS total urine volume (mL) 10 /mL Not Available [facility] [address], [place], [address], 11/30/2021 13:05:21 12/01/19 22 11/30/2021 UA MICRO SCOPI C U-WBC 10 - 25 [hpf] 0 - 2 abnormal Not Available [facility] [address] [place] [address] [address], [place], [address], 11/30/2021 13:05:27 12/01/19 22 11/30/2021 UA MICRO SCOPI C U-RBC 0 - 2 [hpf] 0 - 2 Not Available [facility] [address] [place] [address] [address], [place], [address], 11/30/2021 13:05:27 12/01/19 22 11/30/2021 UA MICRO SCOPI C bacteria modera te [hpf] negati ve abnormal Not Available [facility] [address] [place] [address] [address], [place], [address], 11/30/2021 13:05:27 12/01/19 22 11/30/2021 UA MICRO SCOPI C squamous epi modera te /lpf negati ve,sma ll abnormal Not Available [facility] [address] [place] [address] [address], [place], [address], 11/30/2021 13:05:27 12/01/19 22 11/30/2021 URINE CULTU RE final report microb iology result s Not Available [facility] [address] [place] [address] [address], [place], [address], 12/02/2021 10:00:13 11/02/19 22 06/07/2021 CT, abdom [...] Name and Address Organization Details Recorded Time [id number] Medicinal product containin g penicilli n and acting as antibacte rial agent (product) medicatio n hives Not available Not available 11/04/2021 25876 05 SNOMED swell ing and hives Not [...] Address Organization Details Last Updated DateTime 11/30/2021 19075.18 g 152.4 [facility] 11/30/2021 11:15:56 Date Recorded Body mass [...] o Information not available 11/30/2021 Preferred Language Icelandic Information not available 11/30/2021 Number Of Pregnancies [...] Encounter Closed Date Diagnosis/Indication Diagnosis SNOMED-CT Code [id number] Monse Slaughter PA-C Hugh grewal [address] [place] [address],[address] [address] 11/30/2021 10:56:09 11/30/2021 12:06:56 History of calculus of kidney [id number] Health Concerns Section Related Observation LastModified by Organization Detai ls LastModified Time None Recorded Concern Status LastModified by Organization Details LastModified Time None Recorded Advance Directives Directive None Recorded Payers Encounter Date Sequence Insurance Name Policy Number Policy Osorio Covered Member ID Osorio Member ID Guarantor Name 11/30/2021 1 [employer] - DOS ON OR AFTER 19 (MEDICARE REPLACEMENT/ ADVANTAGE - HMO) [id number] Annabella Longoria [id number] Annabella Longoria Notes Date Note Type Note Provider Name and Address Organization Details Recorded Time 11/30/2021 text/html HPI Notes: This is a 81 year old female with history of kidney stones here for follow up. She reports recent diagnosis of stage 3 kidney disease. She has a history of kidney stones (s/p ESWL in [place] - 2016), Right ureteroscopy with laser lithotripsy, [...] children, all vaginal deliveries. Monse Slaughter PA-C [address] [place] [address],[address], [place], [address], [facility] 11/30/2021 14:53:43 OBGyn Episode No OBEpisode recorded.
--- OUTSIDE RECORDS SUMMARY | 2023-07-04 11:28 | XMS_ITS ---
Author Name Unknown Organization [facility] Address [address] [place] [address] Care Team Providers Care Coal Sample Tester Name Role Phone Unavailable Unavailable Unavailable Surgery Details Not on file Complications Check Surgery Details section. Procedure Estimated Blood Loss Check Surgery Details section. Procedure Findings Check Surgery Details section. Procedure Specimens Taken Check Surgery Details section.
--- OUTSIDE RECORDS SUMMARY | 2023-07-04 11:28 | XMS_ITS | Clinical Summary ---
Author Name Unknown Organization [facility] Address [address] [place] [address] Care Team Providers Care Anthropology Instructor Name Role Phone Unavailable Primary Care Provider Unavailabl e Source Comments Patient records contain information from all sites at [facility]. For routine questions regarding patient records, call [phone] during business hours, M-F 8:00 AM - 5:00 PM Central Time. Record requests for emergency care only can be directed to [phone] at any time.[facility] Allergies Active Allergy Reactions Criticality Noted Date [...] Department Care Team Description 04/29/2023 9:07 AM RAILWAY SIGNALLING ENGINEER - 04/29/2023 11:15 AM RAILWAY SIGNALLING ENGINEER Hospital Encounter Department of Radiation Oncology in [address] [address] Radha Radford M.D. 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 from Last 3 Months [...] Comments Blood Pressure 135/44 04/29/2023 9:23 AM RAILWAY SIGNALLING ENGINEER Pulse 76 04/29/2023 9:23 AM RAILWAY SIGNALLING ENGINEER Temperature 36.1 ??C (97 ??F) 04/29/2023 9:23 AM RAILWAY SIGNALLING ENGINEER Respiratory Rate - - Oxygen Saturation - - Inhaled Oxygen Concentration - - Weight 83.1 kg (183 lb 3.2 oz) 04/29/2023 9:23 A M RAILWAY SIGNALLING ENGINEER Height - - Body Mass Index - [...] this topic Medical Devices Implanted Type Area Autistic Teacher Device Identifier Shelf Expiration Date Model / Serial / Lot Stent Other Stent Other Heart Procedures Procedure Name Priority Date/Time Associated Diagnosis Comments OUTSIDE MR NEURO Routine 04/23/2023 1:15 PM RAILWAY SIGNALLING ENGINEER OUTSIDE DX CHEST Routine 04/09/2023 11:4 5 AM RAILWAY SIGNALLING ENGINEER OUTSIDE DX CHEST Routine 04/09/2023 12:0 0 AM RAILWAY SIGNALLING ENGINEER EXTI GLUCOSE POCT, B Routine 04/08/2023 1:27 PM RAILWAY SIGNALLING ENGINEER OUTSIDE XA Routine 04/08/2023 8:15 AM RAILWAY SIGNALLING ENGINEER OUTSIDE CT BODY Routine 04/08/2023 5:40 AM RAILWAY SIGNALLING ENGINEER EXTI THYROID-STIMULATING HORMONE-SENSITIVE (S-TSH), S Routine 12/19/2021 2:04 PM CDT from Last 3 Months or Most Recently Relevant to Health Maintenance Results * MR HEAD BRAIN WWO-Outside MR Neuro (04/23/2023 1:15 PM RAILWAY SIGNALLING ENGINEER) Narrative [facility] - 04/29/2023 10:43 AM RAILWAY SIGNALLING ENGINEER This order has been created and auto-finalized [...] View Portable-Outside Chest Xray (04/09/2023 11:45 AM RAILWAY SIGNALLING ENGINEER) Only the most recent of2 resultswithin the time period is included. Narrative [facility] - 04/16/2023 11:59 AM RAILWAY SIGNALLING ENGINEER This order has been created and auto-finalized to support the import of outside images. If available, original interpretation can be found on the Media Tab in Chart Review, in Document Viewer, or as an image in QREADS. If a re-interpretation or overread is required please follow defined workflow. ?? Provider Not In System IMG DIAGNOSTIC IM AGING PROCEDURES Performing Organization Address [facility] de Phone Number IIMS NA * XR FLUORO BRONCHOSCOPY-Outside XA (04/08/2023 8:15 AM RAILWAY SIGNALLING ENGINEER) Narrative [facility] - 04/16/2023 11:58 AM RAILWAY SIGNALLING ENGINEER This order has been created and auto-finalized to support the import of outside images. If available, original interpretation can be found on the Media Tab in Chart Review, in Document Viewer, or as an image in QREADS. If a re-interpretation or overread is required please follow defined workflow. ?? Provider Not In System IMG NON RAD IMAGI NG PROCEDURES Performing Organization Address [facility] de Phone Number IIMS NA * CT CHEST WO-Outside CT Body (04/08/2023 5:40 AM RAILWAY SIGNALLING ENGINEER) Narrative [facility] - 04/16/2023 12:07 PM RAILWAY SIGNALLING ENGINEER This order has been created and auto-finalized to support the import of outside images. If available, original interpretation can be found on the Media Tab in Chart Review, in Document Viewer, or as an image in QREADS. If a re-interpretation or overread is required please follow defined workflow. ?? Provider Not In System IMG CT PROCEDURES Performing Organization Address [facility] de Phone Number [facility] NA from Last 3 Months or Most Recently Relevant to Health Maintenance
--- OUTSIDE RECORDS SUMMARY | 2023-07-04 11:29 | XMS_ITS | Clinical Summary ---
Author Name Unknown Organization [facility] & [facility] Address [place], [place] [address] Care Team Providers Care Steel Inspector Name Role Phone Andrew Rodríguez MD Primary Care Provider + Cori Payne MD Unavailable Arabella Diaz RN, BSN Unavailable Beto Rinaldi MD Unavailable [phone] [facility] Care, [place] Unavailable [facility] Unavailable Liset Welch SUPERVISOR FLOOR ASSEMBLY Unavailable Claudette Ansari MD Unavailable Jacquie, Davidson Mcgill HEALTH INFORMATION MANAGERS Unavailable Allergies Active Allergy Reactions Criticality Noted [...] 0 06/07/2021 Active amiodarone (CORDARONE) 200 mg tabletIndications :Atypical atrial flutter (HC) Take 1 Tablet (200 [...] EYES 08/10/2022 Active QUEtiapine (SEROQUEL) 300 mg tabletIndications :Bipolar I disorder (HC) Take 1 Tablet (300 [...] Active acetaminophen (TYLENOL EXTRA STRGTH) 500 mg tabletIndications :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 Max acetaminophen dose: 4000mg in 24 hrs. 100 Tablet 04/09/2023 Active sennosides-docusa te (SENOKOT S) (8.6-50 mg) tabletIndications :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) Take 1-4 Tablets by mouth 2 times daily if needed for Constipation. 25 Tablet 04/09/2023 Active Additional Information Patient not taking.Reported on 06/04/2023 lidocaine-priloca ine (EMLA) 2.5-2.5 % creamIndications: Non-small cell cancer of left lung (HC) Apply [...] 2 times daily if needed. 05/14/2023 Active Active Problems Problem Noted Date Diagnosed [...] Encounters Date Type Department Care Team Description 07/04/2023 Hospital/[facility] Telephone Encounter [facility] 200 [facility] [place] [address] Veronica Galaviz, CADENCE Pre Procedure (PVP) 06/04/2023 9:00 AM CDT Office Visit [facility] 200 [facility] [place] [address] Claudette Ansari MD Follow Up (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)/) 06/04/2023 8:00 AM CDT - 06/04/2023 11:59 PM CDT Hospital Encounter [facility] 200 [facility] [address] Non-small cell cancer of left lung (HC) (Primary Dx); Encounter for screening for other viral diseases 06/04/2023 Travel 05/30/2023 Social Work Encounter [facility] 200 [place] [address] Davidson Dhillon LSW Social Work Visit 05/29/2023 Telephone [facility] 200 [facility] [place] [address] Liset Welch, SUPERVISOR FLOOR ASSEMBLY Care Coordination 05/29/2023 Hospital/[facility] Telephone Encounter [facility] [address] [place] [address] Veronica Galaviz, CADENCE Pre Procedure (PVP) 05/24/2023 Telephone [facility] 200 [place] [address] Liset Welch, SUPERVISOR FLOOR ASSEMBLY Appointment 05/21/2023 4:00 PM CAPSULE FILLING MACHINE OPERATOR Ancillary Procedure [facility] [address] [place] [address] 05/21/2023 Travel 05/21/2023 Telephone [facility] [address] [place] [address] Liset Welch, SUPERVISOR FLOOR ASSEMBLY Patient update 05/21/2023 Telephone [facility] 200 [facility] [address] Liset Welch, SUPERVISOR FLOOR ASSEMBLY Appointment 05/17/2023 Hospital/[facility] Telephone Encounter [facility] 200 [place] [address] Claudette Ansari MD Pre Procedure 05/15/2023 Telephone [facility] [address] [place] [address] Liset Welch, SUPERVISOR FLOOR ASSEMBLY Follow Up 05/14/2023 8:15 AM CAPSULE FILLING MACHINE OPERATOR Office Visit [address] [phone] Liset Welch, SUPERVISOR FLOOR ASSEMBLY Follow Up (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)//) 05/14/2023 7:13 AM CAPSULE FILLING MACHINE OPERATOR - 05/14/2023 11:59 PM CAPSULE FILLING MACHINE OPERATOR Hospital Encounter [facility] 200 [place] [address] Non-small cell cancer of left lung (HC) (Primary Dx); Encounter for screening for other viral diseases; 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) 05/14/2023 Travel 05/13/2023 Telephone [facility] [address] [place] [address] Liset Welch, SUPERVISOR FLOOR ASSEMBLY Appointment 05/13/2023 Hospital/[facility] Telephone Encounter [address] [address] Veronica Galaviz, CADENCE Pre Procedure (PVP) 05/09/2023 2:00 PM CAPSULE FILLING MACHINE OPERATOR - 05/09/2023 11:59 PM CAPSULE FILLING MACHINE OPERATOR Hospital Encounter [facility] [address] [place] [address] Non-small cell cancer of left lung (HC) (Primary Dx); 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) 05/09/2023 2:00 PM CAPSULE FILLING MACHINE OPERATOR Education [facility] 200 [place] [address] 05/09/2023 Travel 05/08/2023 Telephone [facility] 100 [facility] [place] [address] Jess Key, Questions (Questions about dressing over port placement) 05/07/2023 2:21 PM CAPSULE FILLING MACHINE OPERATOR Anesthesia Event [facility] 200 [place] [address] Terri Corey, CHILD CARE LEADER 05/07/2023 1:10 PM CAPSULE FILLING MACHINE OPERATOR - 05/07/2023 2:30 PM CAPSULE FILLING MACHINE OPERATOR Surgery [facility] 200 [place] [address] Jess Key, Ultrasound and fluoroscopic guided port placement 05/07/2023 11:57 AM CAPSULE FILLING MACHINE OPERATOR - 05/07/2023 4:39 PM CAPSULE FILLING MACHINE OPERATOR Hospital Encounter [facility] 200 [place] [address] Jess Key, Discharge Disposition: Home Self Care 05/07/2023 Travel 05/07/2023 Orders Only [facility] 200 [place] [address] Claudette Ansari MD <No scans attached> 05/02/2023 Telephone [facility] 200 [place] [address] Claudette Ansari MD New Med Request 05/02/2023 Telephone [facility] [address] [place] [address] Jess Key DO Surgery Scheduled 05/02/2023 Orders Only [facility] [address] [place] [address] Jess Key DO <No scans attached> 05/01/2023 Telephone [facility] [address] [place] [address] Claudette Ansari MD Education 04/29/2023 1:30 PM CAPSULE FILLING MACHINE OPERATOR Office Visit [facility] 200 [place] [address] Claudette Ansari MD Consult ( Primary cancer of left lower lobe of lung) 04/29/2023 Travel 04/23/2023 1:00 PM CAPSULE FILLING MACHINE OPERATOR - 04/23/2023 11:59 PM CAPSULE FILLING MACHINE OPERATOR Hospital Encounter [facility] [address] [place] [address] Claudette Ansari MD 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) 04/23/2023 Travel 04/23/2023 Telephone [facility] [address] [place] [address] Claudette Ansari MD Appointment 04/15/2023 Oncology Nurse Navigation [address] [address] Samina Hay RN Oncology Nurse Navigation (Introduction and Medical Oncology Consultation) 04/12/2023 9:15 AM CAPSULE FILLING MACHINE OPERATOR Home Care Visit [facility] [address] [place] [address] Andrew Crisostomo, PT PT - NOT TAKEN UNDER HOME CARE - HOME VISIT 04/12/2023 Telephone [facility] [address] [place] [address] Mercedez Hobbs PA Results 04/12/2023 Phone Office Visit [facility] [address] [place] [address] Mercedez Hobbs PA 04/12/2023 Travel 04/12/2023 Orders Only [facility] [address] [place] [address] Arabella Diaz, RN, BSN Oncology Nurse Navigation (Orders for Medi... 04/08/2023 7:47 AM CAPSULE FILLING MACHINE OPERATOR Anesthesia Event [facility] [address] [place] [address] Tyler Chris MD 04/08/2023 7:30 AM CAPSULE FILLING MACHINE OPERATOR - 04/08/2023 2:00 PM CAPSULE FILLING MACHINE OPERATOR Surgery [facility] [address] [place] [address] Beto Rinaldi MD Flexible bronchoscopy, robotic bronchoscopy with biopsy, 04/08/2023 5:38 AM CAPSULE FILLING MACHINE OPERATOR - 04/11/2023 1:22 PM CAPSULE FILLING MACHINE OPERATOR Hospital Encounter [facility] [address] [place] [address] Beto Rinaldi MD 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) (Primary Dx); Lung nodule Discharge Disposition: Home Health 04/08/2023 Travel 04/04/2023 Telephone [facility] [address] [place] [address] Margarita Terrell RN Pre-op from Last 3 Months Immunizations Name Administration Dates Next Due COVID-19 vaccine (Moderna 50 mcg/0.5mL) 12YO+ BIVALENT PF, MDV 08/30/2022 COVID-19 vaccine (Pfizer-[employer] 30mcg/0.3mL) P F, MDV 05/14/2020,04/23/2020 Covid-19 Vaccine [...] 152.3 cm (4' 11.96) 05/14/2023 10:14 AM CAPSULE FILLING MACHINE OPERATOR Body Mass Index 35.78 05/14/2023 10:14 AM CAPSULE FILLING MACHINE OPERATOR Plan of Treatment Upcoming Encounters Date Type Department Care Team (Late st Contact Info) Description 07/08/2023 1:45 PM CDT Appointment [address] [address] 07/08/2023 2:00 PM CDT Appointment [facility] 200 [place] [address] 07/11/2023 1:00 PM CDT Office Visit [facility] [place] [address] Claudette Ansari MD 200 [place] [address] 08/28/2023 11:15 AM CDT Office Visit [facility] [address] [place] [address] Cori Payne MD [address] [place] [address] Health Maintenance Due Date Last Done Comments [...] history exists Medical Devices Implanted Type Area Screen Machine Operator Device Identifier Shelf Expiration Date Model / Serial / Lot Stent Uret [id number] Silhouette - [id number] Implanted:Qty: 1 on 05/03/2018 by Alin Miguel MD at [facility] Right: [employer] Suhas [id number]# / / [id number] Stent Uret [id number] Silannamariaette - [id number] Implanted:Qty: 1 on 05/03/2018 by Alin Miguel MD at [facility] Right: [employer] Suhas [id number]# / / [id number] Power Port Isp Mri 6fr [id number] - [id number] Implanted:Qty: 1 on 05/07/2023 by Jess Key DO at [facility] Right: Chest [employer] 08/15/2024 [id number] / / [id number] Procedures Procedure Name Priority Date/Time Associated Diagnosis [...] W LTD DOPPLER Routine 05/21/2023 6:41 PM CAPSULE FILLING MACHINE OPERATOR Positive blood culture History of transcatheter aortic valve replacement (TAVR) ONCOLOGY ABSOLUTE NEUTROPHIL COUNT STAT 05/14/2023 7:27 AM CAPSULE FILLING MACHINE OPERATOR Non-small cell cancer of left lung (HC) Encounter for screening for other viral diseases HBSAG (HBS) STAT 05/14/2023 7:27 AM CAPSULE FILLING MACHINE OPERATOR Non-small cell cancer of left lung (HC) Encounter for screening for other viral diseases COMP METABOLIC PANEL STAT 05/14/2023 7:27 AM CAPSULE FILLING MACHINE OPERATOR Non-small cell cancer of left lung (HC) Encounter for screening for other viral diseases ANTI HBC STAT 05/14/2023 7:27 AM CAPSULE FILLING MACHINE OPERATOR Non-small cell cancer of left lung (HC) Encounter for screening for other viral diseases CBC WITH AUTO DIFFERENTIAL Today 05/09/2023 3:26 PM CAPSULE FILLING MACHINE OPERATOR 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) CBC WITH AUTO DIFFERENTIAL Today 05/09/2023 3:26 PM CAPSULE FILLING MACHINE OPERATOR 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) COMP METABOLIC PANEL Today 05/09/2023 3:26 PM CAPSULE FILLING MACHINE OPERATOR 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) IRON PLUS IRON BINDING CAP Today 05/09/2023 3:26 PM CAPSULE FILLING MACHINE OPERATOR Non-small cell cancer of left lung (HC) FERRITIN Today 05/09/2023 3:26 PM CAPSULE FILLING MACHINE OPERATOR Non-small cell cancer of left lung (HC) XR CENTRAL VENOUS CATHETER FLUORO Routine 05/07/2023 4:01 PM CAPSULE FILLING MACHINE OPERATOR SUPRAGLOTTIC-LMA Routine 05/07/2023 2:34 PM CAPSULE FILLING MACHINE OPERATOR INSERTION POWER PORT Elective 05/07/2023 2:11 PM CAPSULE FILLING MACHINE OPERATOR Non-small cell carcinoma of left lung (HC) Case Notes No pathRequest C armBedside ultrasoundLikely on the right as patient with left-sided lung cancer BEDSIDE US STUDY ARCHIVE Routine 05/07/2023 12:03 PM CAPSULE FILLING MACHINE OPERATOR MR HEAD BRAIN WWO Routine 04/23/2023 1:40 PM CAPSULE FILLING MACHINE OPERATOR 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) PLATELET COUNT Timed 04/11/2023 6:15 AM CAPSULE FILLING MACHINE OPERATOR XR CHEST 1 VIEW PORTABLE Timed 04/09/2023 12:06 PM CAPSULE FILLING MACHINE OPERATOR XR CHEST 1 VIEW PORTABLE Routine 04/09/2023 5:00 AM CAPSULE FILLING MACHINE OPERATOR GLUCOSE METER Timed 04/08/2023 1:27 PM CAPSULE FILLING MACHINE OPERATOR XR CHEST 1 VIEW PORTABLE STAT 04/08/2023 12:43 PM CAPSULE FILLING MACHINE OPERATOR FOCUS Timed 04/08/2023 11:47 AM CAPSULE FILLING MACHINE OPERATOR OR IMAGE CAPTURE Routine 04/08/2023 10:37 AM CAPSULE FILLING MACHINE OPERATOR [facility] KIT PR5 Routine 04/08/2023 10:34 AM CAPSULE FILLING MACHINE OPERATOR [facility] DRSG PR5 Routine 04/08/2023 10:34 AM CAPSULE FILLING MACHINE OPERATOR [facility] DRSG PR1 Routine 04/08/2023 10:34 AM CAPSULE FILLING MACHINE OPERATOR [facility] TUBING PR20 Routine 04/08/2023 10:34 AM CAPSULE FILLING MACHINE OPERATOR [facility] TUBING PR1 Routine 04/08/2023 10:34 AM CAPSULE FILLING MACHINE OPERATOR [facility] ANES US GUIDE FOR VASC ACCESS Routine 04/08/2023 10:34 AM CAPSULE FILLING MACHINE OPERATOR [facility] CATH PR5 Routine 04/08/2023 10:34 AM CAPSULE FILLING MACHINE OPERATOR ENDOTRACHEAL TUBE Routine 04/08/2023 10:20 AM CAPSULE FILLING MACHINE OPERATOR ENDOTRACHEAL TUBE Routine 04/08/2023 10:20 AM CAPSULE FILLING MACHINE OPERATOR ENDOTRACHEAL TUBE Routine 04/08/2023 10:20 AM CAPSULE FILLING MACHINE OPERATOR XR FLUORO BRONCHOSCOPY Routine 04/08/2023 9:22 AM CAPSULE FILLING MACHINE OPERATOR PATH NON AUTOMATION ENGINEERING TECHNICIAN CYTOLOGY Today 04/08/2023 9:01 AM CAPSULE FILLING MACHINE OPERATOR PATH TISSUE EXAM Today 04/08/2023 8:29 AM CAPSULE FILLING MACHINE OPERATOR ENDOTRACHEAL TUBE Routine 04/08/2023 8:02 AM CAPSULE FILLING MACHINE OPERATOR ENDOTRACHEAL TUBE Routine 04/08/2023 8:02 AM CAPSULE FILLING MACHINE OPERATOR ENDOTRACHEAL TUBE Routine 04/08/2023 8:02 AM CAPSULE FILLING MACHINE OPERATOR THORACOSCOPY WITH LUNG RESECTION Elective 04/08/2023 7:30 AM CAPSULE FILLING MACHINE OPERATOR Lung nodule Case Notes [facility] robot Special Needs WT 178 BRONCHOSCOPY ENDOBRONCHIAL ULTRASOUND FINE NEEDLE ASPIRATE Elective 04/08/2023 7:30 AM CAPSULE FILLING MACHINE OPERATOR Lung nodule Case Notes [employer] robot Special Needs WT 178 ROBOTIC ASSISTED BRONCHOSCOPY ION Elective 04/08/2023 7:30 AM CAPSULE FILLING MACHINE OPERATOR Lung nodule Case Notes [employer] robot Special Needs WT 178 RED BLOOD CELLS EA UNIT Preop 04/08/2023 7:10 AM CAPSULE FILLING MACHINE OPERATOR RED BLOOD CELLS EA UNIT Preop 04/08/2023 7:10 AM CAPSULE FILLING MACHINE OPERATOR TYPE & SCREEN Preop 04/08/2023 7:10 AM CAPSULE FILLING MACHINE OPERATOR CBC WITH AUTO DIFFERENTIAL Preop 04/08/2023 7:01 AM CAPSULE FILLING MACHINE OPERATOR CREATININE Preop 04/08/2023 7:01 AM CAPSULE FILLING MACHINE OPERATOR BUN Preop 04/08/2023 7:01 AM CAPSULE FILLING MACHINE OPERATOR POTASSIUM Preop 04/08/2023 7:01 AM CAPSULE FILLING MACHINE OPERATOR CBC WITH AUTO DIFFERENTIAL Preop 04/08/2023 7:01 AM CAPSULE FILLING MACHINE OPERATOR PROTIME-INR Preop 04/08/2023 7:00 AM CAPSULE FILLING MACHINE OPERATOR CT CHEST WO CLAUDETTE 04/08/2023 5:48 AM CAPSULE FILLING MACHINE OPERATOR Lung nodule SCAN-CARDIAC STRIP 04/08/2023 12:00 AM CAPSULE FILLING MACHINE OPERATOR from Last 3 Months Results * (ABNORMAL) ONCOLOGY ABSOLUTE NEUTROPHIL COUNT (06/04/2023 8:59 AM CDT) Only the most recent of2 resultswithin the time period is included. WHITE BLOOD COUNT 8.9 4.5 - 11.0 thou/cu mm 06/04/2023 9:39 AM [facility] RED BLOOD COUNT 3.50(L) 4.00 - 5.20 mil/cu mm 06/04/2023 9:39 AM [facility] HEMOGLOBIN 10.5(L) 12.0 - 16.0 g/dL 06/04/2023 9:39 AM [facility] HEMATOCRIT 33.9 33.0 - 51.0 % 06/04/2023 9:39 AM [facility] MCV 97 80 - 100 fL 06/04/2023 9:39 AM [facility] MCH 30.0 26.0 - 34.0 pg 06/04/2023 9:39 AM [facility] MCHC 31.0(L) 32.0 - 36.0 g/dL 06/04/2023 9:39 AM [facility] RDW 17.0(H) 11.5 - 15.5 % 06/04/2023 9:39 AM [facility] PLATELET COUNT 250 140 - 440 thou/cu mm 06/04/2023 9:39 AM [facility] MPV 9.0 6.5 - 11.0 fL 06/04/2023 9:39 AM [facility] NRBC 06/04/2023 9:39 AM [facility] ABS [facility] 06/04/2023 9:39 AM [facility] Blood BLOOD SPECIMEN / Unknown Venipuncture / Unknown 06/04/2023 8:59 AM CDT 06/04/2023 9:01 AM T [facility] - 06/04/2023 9:39 AM CDT Includes CBC and differential. Drawn from port; treatment pending. Claudette Ansari MD HEMATOLOGY Performing Organization Address [facility] Co de Phone Number [facility] [address] [place] [address] * (ABNORMAL) RED CELL MORPHOLOGY (06/04/2023 8:59 AM CDT) [facility] TEARDROP CELLS Few 06/04/2023 9:39 AM CDT [facility] RBC COMMENT Present(A ) RBC morphology appears normal, RBC morphology within normal limits for newborns. 06/04/2023 9:39 AM CDT [facility] Blood BLOOD SPECIMEN / Unknown Venipuncture / Unknown 06/04/2023 8:59 AM CDT 06/04/2023 9:01 AM CDT [facility] - 06/04/2023 9:39 AM CDT Includes CBC and differential. Drawn from [facility]; treatment pending. Claudette Ansari MD HEMATOLOGY Performing Organization Address [facility] Co de Phone Number [facility] [address] [place] [address] * PLATELET ESTIMATE (06/04/2023 8:59 AM CDT) [facility] PLATELET ESTIMATE Adequate Adequate, No estimate 06/04/2023 9:39 AM CDT [facility] Blood BLOOD SPECIMEN / Unknown Venipuncture / Unknown 06/04/2023 8:59 AM CDT 06/04/2023 9:01 AM CDT [facility] - 06/04/2023 9:39 AM CDT Includes CBC and differential. Drawn from [facility]; treatment pending. Claudette Ansari MD HEMATOLOGY Performing Organization Address [facility] Co de Phone Number [facility] [address] [place] [address] * (ABNORMAL) MANUAL DIFFERENTIAL (06/04/2023 8:59 AM CDT) [facility] % NEUTROPHILS 77.0 % 06/04/2023 9:39 AM [facility] % LYMPHOCYTES 10.0 % 06/04/2023 9:39 AM [facility] % MONOCYTES 5.0 % 06/04/2023 9:39 AM [facility] % EOSINOPHILS 3.0 % 06/04/2023 9:39 AM [facility] % BASOPHILS 4.0 % 06/04/2023 9:39 AM [facility] % MYELOCYTES 1.0(H) <0.1 % 06/04/2023 9:39 AM [facility] NEUTROPHILS ABSOLUTE 6.9 1.7 - 7.0 thou/cu mm 06/04/2023 9:39 AM [facility] LYMPHOCYTES ABSOLUTE 0.9 0.9 - 2.9 thou/cu mm 06/04/2023 9:39 AM [facility] MONOCYTES ABSOLUTE 0.4 <0.9 thou/cu mm 06/04/2023 9:39 AM [facility] EOSINOPHILS ABSOLUTE 0.3 <0.5 thou/cu mm 06/04/2023 9:39 AM [facility] BASOPHILS ABSOLUTE 0.4(H) <0.3 thou/cu mm 06/04/2023 9:39 AM [facility] ABSOLUTE MYELOCYTES 0.1(H) <=0.0 thou/cu mm 06/04/2023 9:39 AM [facility] Blood BLOOD SPECIMEN / Unknown Venipuncture / Unknown 06/04/2023 8:59 AM CDT 06/04/2023 9:01 AM CDT [facility] - 06/04/2023 9:39 AM CDT Includes CBC and differential. Drawn from port; treatment pending. Claudette Ansari MD HEMATOLOGY [facility] [address] [place] [address] * (ABNORMAL) COMP METABOLIC PANEL (06/04/2023 8:59 AM CDT) Only the most recent of3 resultswithin the time period is included. SODIUM 142 136 - 145 mmol/L 06/04/2023 9:25 AM [facility] POTASSIUM 4.0 3.5 - 5.1 mmol/L 06/04/2023 9:25 AM [facility] CHLORIDE 104 98 - 107 mmol/L 06/04/2023 9:25 AM [facility] CO2,TOTAL 27 22 - 29 mmol/L 06/04/2023 9:25 AM [facility] ANION GAP 11 5 - 18 06/04/2023 9:25 AM [facility] GLUCOSE 146(H) 70 - 99 mg/dL 06/04/2023 9:25 AM [facility] CALCIUM 9.6 8.8 - 10.2 mg/dL 06/04/2023 9:25 AM [facility] BUN 21 8 - 23 mg/dL 06/04/2023 9:25 AM [facility] CREATININE 1.22(H) 0.50 - 0.90 mg/dL 06/04/2023 9:25 AM [facility] BUN/CREAT RATIO 17 10 - 20 9:25 AM [facility] eGFR 45(L) >90 mL/min/1.7 3m2 06/04/2023 9:25 AM [facility] Comment:As of 2021, eG FR is calculated by the CKD-EPI creatinine equation without race adjustment. ??eGFR can be influenced by muscle mass, exercise, and diet. ??The reported eGFR is an estimation only and is only applicable if the renal function is stable. ALBUMIN 3.8(L) 4.0 - 4.9 g/dL 06/04/2023 9:25 AM [facility] PROTEIN,TOTAL 6.6 6.0 - 8.0 g/dL 06/04/2023 9:25 AM [facility] BILIRUBIN,TOTAL 0.3 0.0 - 1.2 mg/dL 06/04/2023 9:25 AM CDT [facility] ALK PHOSPHATASE 105(H) 35 - 104 IU/L 06/04/2023 9:25 AM CDT [facility] ALT (SGPT) 23 10 - 35 IU/L 06/04/2023 9:25 AM CDT [facility] AST (SGOT) 33 10 - 35 IU/L 06/04/2023 9:25 AM CDT [facility] Blood BLOOD SPECIMEN / Unknown Venipuncture / Unknown 06/04/2023 8:59 AM CDT 06/04/2023 9:01 AM CDT Claudette Ansari MD CHEMISTRY [facility] [address] [place] [address] * ECHO TTE LIMITED WO CONTRAST W COLOR W LTD DOPPLER (05/21/2023 6:41 PM CAPSULE FILLING MACHINE OPERATOR) AORTIC VALVE MEAN PG 18 mmHg EJECTION FRACTION 65 % PEAK TR VELOCITY 3.6 m/s LVEDD 4.6 cm MITRAL VALVE MR ERO 31 mm2 Anatomical Region Laterality Modality Ultrasound 05/21/2023 5:51 PM CAPSULE FILLING MACHINE OPERATOR Narrative 05/21/2023 7:08 PM CAPSULE FILLING MACHINE OPERATOR ECHOCARDIOGRAM JOZEF THOMPSON ? Accession#: ?? [id number] : ?1940 82 years Study Date: ?? 05/21/2023 5:51:54 PM Gender: F ?BP: ? 123/52 mmHg Height: 152.00 cm ?BSA: ?1.83 m? ? ? Weight: 87.00 kg ? Tech: ? MTS ? Referring MD: LIZET SOTO Site: ? [facility] Reading Location: [facility] Patient Location: Inpatient. Procedure: Limited 2D , [...] . This study was interpreted by an [facility] accredited facility. CC: HIM (med records) [facility], Med/Surg - IP [facility]. ??Final ?? Procedure Note Harris Vasquez MD - 05/21/2023 ECHOCARDIOGRAM JOZEF THOMPSON : 1940 82 years Study Date: 05/21/2023 5:51:54 PM Gender: F BP: 123/52 mmHg Height: 152.00 cm BSA: 1.83 m? ? ? Weight: 87.00 kg Tech: [facility] Referring MD: LIZET SOTO Site: [facility] Reading Location: [facility] Patient Location: Inpatient. Procedure: Limited 2D , [...] IAC accredited facility. CC: HIM (med records) [facility], Med/Surg - IP [facility]. Final Lizet Soto MD ECHO ORD * HBSAG (HBS) (05/14/2023 7:27 AM CAPSULE FILLING MACHINE OPERATOR) HBSAG Nonreactive Nonreactive 05/14/2023 4:27 PM CAPSULE FILLING MACHINE OPERATOR [facility] TRAL LABORATORY Blood BLOOD SPECIMEN / Unknown Line/Port / Unknown 05/14/2023 7:27 AM CAPSULE FILLING MACHINE OPERATOR 05/14/2023 7:32 AM CAPSULE FILLING MACHINE OPERATOR Liset L Selly SUPERVISOR [employer] S[employer] Performing Organization Address [facility] Co de Phone Number [facility] [address] [place], [place] [id number], * ANTI HBC (05/14/2023 7:27 AM CAPSULE FILLING MACHINE OPERATOR) Pathologist [facility] ANTI HBC Non-React carissa Non-React carissa 05/14/2023 4:27 PM CAPSULE FILLING MACHINE OPERATOR [facility] TRAL LABORATORY Comment:Anti-HBc Antibodies not detected. Does not exclude the possibility of exposure to or infection with HBV. Levels of Anti-HBc may be below the cut-off in early infection. Blood BLOOD SPECIMEN / Unknown Line/Port / Unknown 05/14/2023 7:27 AM CAPSULE FILLING MACHINE OPERATOR 05/14/2023 7:32 AM CAPSULE FILLING MACHINE OPERATOR Liset Welch SUPERVISOR FLOOR ASSEMBL[employer] SEND OUTS Performing Organization Address [facility] Co de Phone Number [facility] [address] [place] [address], [place] * (ABNORMAL) CBC WITH AUTO DIFFERENTIAL (05/09/2023 3:26 PM CAPSULE FILLING MACHINE OPERATOR) Only the most recent of2 resultswithin the time period is included. Pathologist [facility] WHITE BLOOD COUNT 7.1 4.5 - 11.0 thou/cu mm 05/09/2023 3:35 PM [facility] RED BLOOD COUNT 3.91(L) 4.00 - 5.20 mil/cu mm 05/09/2023 3:35 PM [facility] HEMOGLOBIN 11.6(L) 12.0 - 16.0 g/dL 05/09/2023 3:35 PM [facility] HEMATOCRIT 37.2 33.0 - 51.0 % 05/09/2023 3:35 PM [facility] MCV 95 80 - 100 fL 05/09/2023 3:35 PM [facility] MCH 29.7 26.0 - 34.0 pg 05/09/2023 3:35 PM [facility] MCHC 31.2(L) 32.0 - 36.0 g/dL 05/09/2023 3:35 PM [facility] RDW 15.3 11.5 - 15.5 % 05/09/2023 3:35 PM [facility] PLATELET COUNT 165 140 - 440 thou/cu mm 05/09/2023 3:35 PM [facility] MPV 10.3 6.5 - 11.0 fL 05/09/2023 3:35 PM [facility] % NEUT 70.2 % 05/09/2023 3:35 PM [facility] % LYMPH 16.8 % 05/09/2023 3:35 PM [facility] % MONO 7.5 % 05/09/2023 3:35 PM [facility] % EOS 5.1 % 05/09/2023 3:35 PM [facility] % BASO 0.4 % 05/09/2023 3:35 PM [facility] ABSOLUTE NEUTROPHILS 5.0 1.7 - 7.0 thou/cu mm 05/09/2023 3:35 PM [facility] ABSOLUTE LYMPHOCYTES 1.2 0.9 - 2.9 thou/cu mm 05/09/2023 3:35 PM [facility] ABSOLUTE MONOCYTES 0.5 <0.9 thou/cu mm 05/09/2023 3:35 PM [facility] ABSOLUTE EOSINOPHILS 0.4 <0.5 thou/cu mm 05/09/2023 3:35 PM [facility] ABSOLUTE BASOPHILS 0.0 <0.3 thou/cu mm 05/09/2023 3:35 PM [facility] Blood BLOOD SPECIMEN / Unknown Line/Port / Unknown 05/09/2023 3:26 PM CAPSULE FILLING MACHINE OPERATOR 05/09/2023 3:31 PM [facility] LABORATORY - 05/09/2023 3:35 PM CAPSULE FILLING MACHINE OPERATOR This procedure was originally ordered at [facility]. This procedure was originally ordered at [facility]. Claudette Ansari MD HEMATOLOGY [facility] [address] [place] [address] * IRON PLUS IRON BINDING CAP (05/09/2023 3:26 PM CAPSULE FILLING MACHINE OPERATOR) IRON 47 37 - 145 ug/dL 05/10/2023 1:52 PM CAPSULE FILLING MACHINE OPERATOR [facility] LAB[facility] UIBC (UNSATURATED) 257 112 - 347 ug/dL 05/10/2023 1:52 PM CAPSULE FILLING MACHINE OPERATOR [facility] IRON BINDING CAPACITY 304 250 - 400 ug/dL 05/10/2023 1:52 PM CAPSULE FILLING MACHINE OPERATOR [facility] IRON,% SATURATION 15 14 - 50 % 05/10/2023 1:52 PM CAPSULE FILLING MACHINE OPERATOR [facility] Blood BLOOD SPECIMEN / Unknown Line/Port / Unknown 05/09/2023 3:26 PM CAPSULE FILLING MACHINE OPERATOR 05/09/2023 3:31 PM CAPSULE FILLING MACHINE OPERATOR Claudette Ansari MD CHEMISTRY Performing Organization Address City/[facility]/ZIP Co de Phone Number [facility] [address] [place] [address], * FERRITIN (05/09/2023 3:26 PM CAPSULE FILLING MACHINE OPERATOR) FERRITIN 89.1 15.0 - 150.0 ng/mL 05/10/2023 1:52 PM CAPSULE FILLING MACHINE OPERATOR [facility] LABORAT[facility] Blood BLOOD SPECIMEN / Unknown Line/Port / Unknown 05/09/2023 3:26 PM CAPSULE FILLING MACHINE OPERATOR 05/09/2023 3:31 PM CAPSULE FILLING MACHINE OPERATOR Claudette Ansari MD CHEMISTRY Performing Organization Address City/[facility]/ZIP Co de Phone Number [facility] [address] [place] [id number], [place] * XR CENTRAL VENOUS CATHETER FLUORO (05/07/2023 4:01 PM CAPSULE FILLING MACHINE OPERATOR) Anatomical Region Laterality Modality CHEST, HEART X-Ray Angiograph y Jess Key DO FLUOROSCOPY * Supraglottic (05/07/2023 2:34 PM CAPSULE FILLING MACHINE OPERATOR) Narrative Terri CoreyAMBER - 05/07/2023 2:34 PM CAPSULE FILLING MACHINE OPERATOR Terri CoreyAMBER ? 05/07/2023 ??2:34 PM Procedure: Supraglottic Patient location during procedure: OR Supraglottic Airway Properties Mask Ventilation: not attempted Type: i-gel Tube Size: 4 Insertion Attempts: 1 Placement Verification: auscultation and CO2 detection Assessment Assessment: atraumatic and dentition unchanged Airway Intervention: secured Terri Tolliver Madhav CLARK ANESTHESIA PX NO TE ORDERABLES * MR BRAIN W/WO CONTRAST (04/23/2023 1:40 PM CAPSULE FILLING MACHINE OPERATOR) Anatomical Region Laterality Modality BRAIN, HEAD Magnetic Resonan ce 04/23/2023 1:57 PM CAPSULE FILLING MACHINE OPERATOR Impressions 04/23/2023 1:57 PM CAPSULE FILLING MACHINE OPERATOR 1. No acute intracranial abnormality. 2. No [...] PM (Electronically Signed) Narrative 04/23/2023 1:57 PM CAPSULE FILLING MACHINE OPERATOR For Patients: ??As a result of the [...] For Patients: As a result of the 21st Century Cures Act, medical imagingexams and procedure [...] MR * PLATELET COUNT (04/11/2023 6:15 AM CAPSULE FILLING MACHINE OPERATOR) PLATELET COUNT 141 140 - 440 thou/cu mm 04/11/2023 7:11 AM CAPSULE FILLING MACHINE OPERATOR [facility] MPV 10.7 6.5 - 11.0 fL 04/11/2023 7:11 AM CAPSULE FILLING MACHINE OPERATOR [facility] Blood BLOOD SPECIMEN / Unknown Venipuncture / Unknown 04/11/2023 6:15 AM CAPSULE FILLING MACHINE OPERATOR 04/11/2023 6:50 AM CAPSULE FILLING MACHINE OPERATOR Mercedez HARVEY HEMATOLOGY [facility] [address] [place] [address], [place] * XR CHEST 1 VIEW PORTABLE (04/09/2023 12:06 PM CAPSULE FILLING MACHINE OPERATOR) Only the most recent of3 resultswithin the time period is included. Anatomical Region Laterality Modality HEART, THORAX, CHEST Digital Rad iography 04/09/2023 1:34 PM CAPSULE FILLING MACHINE OPERATOR Narrative 04/09/2023 1:34 PM CAPSULE FILLING MACHINE OPERATOR For Patients: ??As a result of the [...] soft tissues: No acute findings. Dictated by eGn Robles MD @ Apr 09 2023 ??1:34PM (Electronically Signed) ?? Procedure Note Gen Robles MD - 04/09/2023 For Patients: As a result of the s Act, medical imagingexams and procedure reports are [...] * (ABNORMAL) GLUCOSE METER (04/08/2023 1:27 PM CAPSULE FILLING MACHINE OPERATOR) GLUCOSE METER 238(H) 65 - 100 mg/dL 04/08/2023 1:29 PM CAPSULE FILLING MACHINE OPERATOR [facility] Blood BLOOD SPECIMEN / Unknown 04/08/2023 1:27 PM CAPSULE FILLING MACHINE OPERATOR 04/08/2023 1:28 PM CAPSULE FILLING MACHINE OPERATOR Beto Rinaldi MD CHEMISTRY Performing Organization Address [facility] Co de Phone Number [facility] [address] [place] [address], [place] * FOCUS (04/08/2023 11:47 AM CAPSULE FILLING MACHINE OPERATOR) Tissue (Left Lower Lobe Lung) 04/08/2023 11:47 AM CAPSULE FILLING MACHINE OPERATOR 04/10/2023 1:24 PM CAPSULE FILLING MACHINE OPERATOR Beto Rinaldi MD LABORATORY Performing Organization Address [facility] Co de Phone Number [facility] [address] [address], [place] * HCHG CATH PR5, HCHG ANES US GUIDE FOR VASC ACCESS, HCHG TUBING PR1, HCHG TUBING PR20, HCHG DRSG PR1, HCHG DRSG PR5, HCHG KIT PR5 (04/08/2023 10:34 AM CAPSULE FILLING MACHINE OPERATOR) Narrative Tyler Chris MD - 04/08/2023 10:34 AM CAPSULE FILLING MACHINE OPERATOR Tyler Chris MD ? 04/08/2023 10:35 AM [...] PR10, HCHG STYLET PR1 (04/08/2023 10:20 AM CAPSULE FILLING MACHINE OPERATOR) Narrative Ivory Mendiola CRNA - 04/08/2023 10:20 AM CAPSULE FILLING MACHINE OPERATOR Ivory Mendiola CRNA ? 04/08/2023 10:23 AM [...] * XR FLUORO BRONCHOSCOPY (04/08/2023 9:22 AM CAPSULE FILLING MACHINE OPERATOR) Anatomical Region Laterality Modality CHEST Other Narrative 04/08/2023 6:24 AM CAPSULE FILLING MACHINE OPERATOR 4 minutes 3 seconds fluoroscopy time was provided. ??See operative/procedure report for further information. Beto Rinaldi MD FLUOROSCOPY * PATH NON AUTOMATION ENGINEERING TECHNICIAN CYTOLOGY (04/08/2023 9:01 AM CAPSULE FILLING MACHINE OPERATOR) Case Report Medical Cytology Report ? Case: [id number] ? Authorizing Provider: ??Beto Rinaldi MD Collected: ? 04/08/2023 0901 ? Ordering Location: ? [facility] ?Received: ?04/08/20231033 ? Hospital ? Pathologist: ? Samina Boo [...] needle and forceps ? 04/09/2023 5:32 PM [facility] ENTRAL LABORATORY Final Diagnosis A) LYMPH [...] primary 2. ??See comment 04/09/2023 5:32 PM [facility] ENTRAL LABORATORY Comment E) Final classification of the non-small cell carcinoma and appropriate ancillary testing are deferred to the same day pulmonary resection specimen. See [id number]. 04/09/2023 5:32 PM [facility]- ENTRAL LABORATORY Clinical Information 4.8 x 2.2 cm left lower lobe lung mass, former [id number] smoker. See also subsequent resection specimen [id number]. 04/09/2023 5:32 PM [facility]-C ENTRAL LABORATORY Gross Description A) Received identified [...] more than 72 hours. 04/09/2023 5:32 PM [facility]- ENTRMN LABORATORY Adequacy Assessment A) Dr. Sanabria assessed [...] impression of Adequate-maligna nt. 04/09/2023 5:32 PM [facility] ENTRAL LABORATORY Microscopic Description A-E) Specimen adequacy: Adequate for interpretation. All slides were reviewed. The microscopic appearance substantiates the diagnosis. 04/09/2023 5:32 PM CAPSULE FILLING MACHINE OPERATOR [facility] Additional Information Cytology is screened at [facility], Central Laboratory - [address], [place] [address] and [facility] Laboratory - [address], [place] [address] and [facility] - [address] [place] [address] Interpreted at [facility], Central Laboratory - [address], [place] [address] 04/09/2023 5:32 PM CAPSULE FILLING MACHINE OPERATOR [facility] LABORAT[facility]-C ENTRAL LABORATORY Aspirate (Station 7 Subcarinal Lymph Node) 04/08/2023 9:01 AM CAPSULE FILLING MACHINE OPERATOR 04/08/2023 10:34 AM CAPSULE FILLING MACHINE OPERATOR Specimen obtained by aspiration (specimen) (Station 4R Lower Paratracheal Lymph Node) 04/08/2023 9:07 AM CAPSULE FILLING MACHINE OPERATOR 04/08/2023 10:34 AM CAPSULE FILLING MACHINE OPERATOR Specimen obtained by aspiration (specimen) (Station 4L Lower Paratracheal Lymph Node) 04/08/2023 9:11 AM CAPSULE FILLING MACHINE OPERATOR 04/08/2023 10:34 AM CAPSULE FILLING MACHINE OPERATOR Specimen obtained by aspiration (specimen) (Station 11L Interlobar Lymph Node) 04/08/2023 9:22 AM CAPSULE FILLING MACHINE OPERATOR 04/08/2023 10:34 AM CAPSULE FILLING MACHINE OPERATOR Specimen obtained by aspiration (specimen) (Left Lower Lobe Lung) 04/08/2023 9:22 AM CAPSULE FILLING MACHINE OPERATOR 04/08/2023 10:34 AM CAPSULE FILLING MACHINE OPERATOR Beto Rinaldi MD PATHOLOGY/CYTOL OGY [facility] LABORATORY-CENTRAL LABORATORY [address] [place] [address], * PATH TISSUE EXAM (04/08/2023 8:29 AM CAPSULE FILLING MACHINE OPERATOR) Case Report Pathology Report ?Case: [id number] ? Authorizing Provider: ??Beto Rinaldi MD Collected: [...] Subaortic Lymph Node ? 4 4:45 PM CAPSULE FILLING MACHINE OPERATOR [facility]- CENTRAL LABORATORY Amendment 04/11/2023 - Amendmen t issued to report PD-L1 results. See final diagnosis section. 04/16/2023 - Amendment to report [facility] Targeted Next Generation Sequencing results. Please see attached scanned report and updated diagnosis. 4 4:45 PM CAPSULE FILLING MACHINE OPERATOR [facility] LABORATORY- CENTRAL LABORATORY Final Diagnosis A) Specimen [...] Negative for malignancy (1 benign lymph node) 4 4:45 PM CAPSULE FILLING MACHINE OPERATOR [facility] LABORATORY- CENTRAL LABORATORY Amendment electronically signed by [...] tests other than these, please contact the [facility] ([phone]). *[facility] Thoracic Oncology Program Committee reflex testing criteria: Stage IV pulmonary non-small cell carcinoma OR Tumor size >= 4 cm, or lymph node involvement, pulmonary non-small cell carcinoma, neoadjuvant setting OR Resected stage IB - IIIB pulmonary non-small cell carcinoma, adjuvant setting (if not previously performed) - [facility] Lung NGS panel (EGFR, ALK, ROS1, RET, MET, KRAS, BRAF, HRAS, NRAS, ERBB2, NTRK1/2/3) - [facility] PD-L1 SP263 - If RNA NGS fusion analysis fails, FISH for ALK and ROS1 fusion will be attempted 4 4:45 PM [facility] LABORAT[facility]- CENTRAL LABORATORY Clinical Information Lung cancer. Immediately prior to the surgery, bronchoscopy with EBUS was performed with sampling of lymph nodes at station 7, station 4R, station 4L, station 11 L, and the left lower lobe lung mass itself. See case [id number] for results. 4:45 PM [facility]- CENTRAL LABORATORY Gross Description A) The specimen is [...] staple line) Distance from pleura (Inked:green): Abutting (towing pilot blocks submitted in cassette(s) 7, 8, 10, [...] annotated photograph is uploaded to the case. Silviculture Professor sections are submitted as follows: 1. ??Bronchial [...] cassette. JKT 04/09/2023 ?? 4 4:45 PM [facility] LABORAT[facility] Microscopic Description The final diagnosis is [...] for definite pleural invasion 4 4:45 PM [facility] LAB[facility] Molecular Diagnostics Summary Preanalytical microdissection of tissue/cytology slides for Next Generation Sequencing was performed according to laboratory protocol as follows: Microscopic examination was performed by a pathologist, Dr. Cottrell, to determine specimen adequacy and identify areas of tumor for isolation. Areas of tumor selected and marked by the pathologist were manually harvested by a crime laboratory analyst for nucleic acid extraction. 4 4:45 PM [facility] LABOR[facility] SYNOPTIC REPORTING LUNG LUNG - All [...] ?? Additional Findings: ?Emphysema 4 4:45 PM [facility]- CENTRAL LABORATORY Additional Information Interpreted at [facility], Central Laboratory - [address] [address] TEST PERFORMED: PD-L1 (SP263) ANALYSIS BY IMMUNOHISTOCHEMISTRY [...] incubated with a PD-L1 rabbit monoclonal antibody ([place] PD-L1 SP263 assay), performed on the [employer] BenchMark ULTRA instrument and visualized with OptiView [...] than or equal to 1% (Expression) This [place] SP263 immunohistochemical antibody assay is considered a laboratory developed test for patients with??non-small cell lung cancer who are being considered for treatment with atezolizumab. This [place] SP263 immunohistochemical antibody assay is considered a [...] specimens. References N Engl J Med 2020; 383:8633-1227 ?? 10.1056/[id number] J Thorac Oncol 2018;13(3):367-76 https://doi.org/10.101 6/j.jtho.2017.11.112 J Thorac Oncol 2018;13(9):1302-11 ??https://doi.org/10.1 016/j.jtho.2018.05.013 J Thorac Oncol 2017;12(11):1654-63 ??https://doi.org /10.1016/j.jtho.2017.0 7.031 Am J Clin Oncol 202;39(15)suppl:8500 ?? 10.1200/JCO.2020.39.15 _suppl.8500 Disclaimer Support for the interpretation of this case may have included the use of immunohistochemistry and/or in situ hybridization tests that were performed by [facility] and whose performance characteristics were evaluated by [...] high complexity clinical laboratory testing. 4:45 PM CAPSULE FILLING MACHINE OPERATOR [facility] LABORATORY Tissue SPECIMEN FROM LUNG / Unknown 04/08/2023 8:29 AM CAPSULE FILLING MACHINE OPERATOR 04/08/2023 10:32 AM CAPSULE FILLING MACHINE OPERATOR Tissue specimen (specimen) (Station 7 Subcarinal Lymph Node) 04/08/2023 10:48 AM CAPSULE FILLING MACHINE OPERATOR 04/08/2023 10:56 AM CAPSULE FILLING MACHINE OPERATOR Tissue specimen (specimen) (Station 11L Interlobar Lymph Node) 04/08/2023 11:19 AM CAPSULE FILLING MACHINE OPERATOR 04/08/2023 11:26 AM CAPSULE FILLING MACHINE OPERATOR Tissue specimen (specimen) (Left Lower Lobe Lung) 04/08/2023 11:47 AM CAPSULE FILLING MACHINE OPERATOR 04/08/2023 12:01 PM CAPSULE FILLING MACHINE OPERATOR Tissue specimen (specimen) (Station 5 Subaortic Lymph Node) 04/08/2023 11:51 AM CAPSULE FILLING MACHINE OPERATOR 04/08/2023 12:01 PM CAPSULE FILLING MACHINE OPERATOR Beto Rinaldi MD PATHOLOGY/CYTOL OGY [facility] LABORATORY [address] [place] [address], * HCHG TUBE PR1, HCHG INSTRUMENT DISP PR10, HCHG STYLET PR1 (04/08/2023 8:02 AM CAPSULE FILLING MACHINE OPERATOR) Narrative Ivory Mendiola CRNA - 04/08/2023 8:02 AM CAPSULE FILLING MACHINE OPERATOR Ivory Mendiola CRNA ? 04/08/2023 ??8:04 AM Procedure: ETT Patient [...] * Type and Screen (04/08/2023 7:10 AM CAPSULE FILLING MACHINE OPERATOR) Pathologist [facility] ABORH O Rh Positive 04/08/2023 8:16 AM CAPSULE FILLING MACHINE OPERATOR [facility]-CENTRAL LAB BLOOD BANK ANTIBODY SCREEN Negative Negative 04/08/2023 8:16 AM CAPSULE FILLING MACHINE OPERATOR [facility]-CENTRAL LAB BLOOD BANK SPECIMEN EXPIRATION DATE/TIME 04/11/23 23:59 04/08/2023 8:16 AM CAPSULE FILLING MACHINE OPERATOR [facility]-CENTRAL LAB BLOOD BANK Blood BLOOD SPECIMEN / Unknown Non-Lab Venipuncture / Unknown 04/08/2023 7:10 AM CAPSULE FILLING MACHINE OPERATOR 04/08/2023 7:31 AM CAPSULE FILLING MACHINE OPERATOR Mercedez HARVEY BLOOD BANK Performing Organization Address City/[facility] Co de Phone Number [facility]TR[facility] BLOOD BANK [address] [place] [address], * RED BLOOD CELLS EA UNIT (04/08/2023 7:10 AM CAPSULE FILLING MACHINE OPERATOR) Only the most recent of2 resultswithin the time period is included. Pathologist [facility] CROSSMATCH Compatible Compatible [employer] LAB-CENTRAL LAB BLOOD BANK PRODUCT BLOOD TYPE O Rh Positive [facility]-C[facility]TRAL LAB BLOOD BANK PRODUCT ID NUMBER [id number] [facility]-C[facility]TRAL LAB BLOOD BANK PRODUCT STATUS /Relea sed [employer]-C[facility]TRAL LAB BLOOD BANK PRODUCT DESCRIPTION RBC -1 LR [employer] LAB-CENTRAL LAB BLOOD BANK PRODUCT CODE [id number] [facility]-CENTRAL LAB BLOOD BANK Mercedez HARVEY BLOOD BANK Performing Organization Address [facility]/State/ZIP Co de Phone Number [facility] LAB BLOOD BANK [address] [place] [address], * (ABNORMAL) BUN (04/08/2023 7:01 AM CAPSULE FILLING MACHINE OPERATOR) BUN 33(H) 8 - 23 mg/dL 04/08/2023 8:02 AM CAPSULE FILLING MACHINE OPERATOR [facility] LABORATORY Blood BLOOD SPECIMEN / Unknown Butterfly / Unknown 04/08/2023 7:01 AM CAPSULE FILLING MACHINE OPERATOR 04/08/2023 7:30 AM CAPSULE FILLING MACHINE OPERATOR Mercedez HARVEY CHEMISTRY Performing Organization Address [facility] Co de Phone Number [facility] LABORATORY [address] [place] [address], * Potassium (04/08/2023 7:01 AM CAPSULE FILLING MACHINE OPERATOR) Pathologist [facility] POTASSIUM 3.9 3.5 - 5.1 mmol/L 04/08/2023 8:02 AM CAPSULE FILLING MACHINE OPERATOR [facility] LABORATORY Blood BLOOD SPECIMEN / Unknown Butterfly / Unknown 04/08/2023 7:01 AM CAPSULE FILLING MACHINE OPERATOR 04/08/2023 7:30 AM CAPSULE FILLING MACHINE OPERATOR Mercedez HARVEY CHEMISTRY Performing Organization Address [facility] Co de Phone Number [facility] LABOR[facility] [address] [place] [address], * (ABNORMAL) Creatinine (04/08/2023 7:01 AM CAPSULE FILLING MACHINE OPERATOR) eGFR 50(L) >90 mL/min/1.7 3m2 04/08/2023 8:02 AM CAPSULE FILLING MACHINE OPERATOR [facility] [employer] TRAL LABORATORY Comment:As of 2021, eG FR is calculated by the CKD-EPI creatinine equation without race adjustment. ??eGFR can be influenced by muscle mass, exercise, and diet. ??The reported eGFR is an estimation only and is only applicable if the renal function is stable. CREATININE 1.11(H) 0.50 - 0.90 mg/dL 04/08/2023 8:02 AM CAPSULE FILLING MACHINE OPERATOR [facility] TRAL LABORATORY Blood BLOOD SPECIMEN / Unknown Butterfly / Unknown 04/08/2023 7:01 AM CAPSULE FILLING MACHINE OPERATOR 04/08/2023 7:30 AM CAPSULE FILLING MACHINE OPERATOR Mercedez HARVEY CHEMISTRY Performing Organization Address [facility] Co de Phone Number [facility] LABORATORY [address] [place], [place] [id number], [place] * Protime - INR (04/08/2023 7:00 AM CAPSULE FILLING MACHINE OPERATOR) INR 1.1 <1.3 04/08/2023 7:44 AM CAPSULE FILLING MACHINE OPERATOR [facility] PROTIME 11.8 10.3 - 12.3 sec 04/08/2023 7:44 AM CAPSULE FILLING MACHINE OPERATOR [facility] Blood BLOOD SPECIMEN / Unknown Butterfly / Unknown 04/08/2023 7:00 AM CAPSULE FILLING MACHINE OPERATOR 04/08/2023 7:30 AM CAPSULE FILLING MACHINE OPERATOR Narrative [facility] LAB[facility] - 04/08/2023 7:44 AM CAPSULE FILLING MACHINE OPERATOR ?Therapeutic Range 2.0-3.0 for most anticoagulated patients [...] patient is on UFH. [facility] Performing Organization Address [facility] Co de Phone Number [facility] [address] [place] [address], [place] * CT CHEST WO (04/08/2023 5:48 AM CAPSULE FILLING MACHINE OPERATOR) Anatomical Region Laterality Modality CHEST, THORAX, HEART Computed To mography 04/08/2023 6:58 AM CAPSULE FILLING MACHINE OPERATOR Impressions 04/08/2023 6:58 AM CAPSULE FILLING MACHINE OPERATOR 1. Left lower lobe multilocular air-filled cavity [...] AM (Electronically Signed) Narrative 04/08/2023 6:58 AM CAPSULE FILLING MACHINE OPERATOR For Patients: ??As a result of the [employer] Cures Act, medical imaging exams and procedure [...] For Patients: As a result of the 21st Century Cures Act, medical imagingexams and procedure [...] CT * SCAN-CARDIAC STRIP (04/08/2023 12:00 AM CAPSULE FILLING MACHINE OPERATOR) Narrative 04/08/2023 12:00 AM CAPSULE FILLING MACHINE OPERATOR Ordered by an unspecified provider. Other Clinical Staff OTHER from Last 3 Months Advance Directives * [...] Status Discussion: Per Existing Order Care Teams Steel Inspector Relationship Specialty Start Date End Date Andrew Rodríguez MD [address] [place] [address] PCP - General Family Practice 09/08/21 Cori Payne MD [address] [place] [id number] Psychiatry 09/08/21 Arabella Diaz, RN, BSN [address] [place] [address] Nurse Navigator - Oncology Registered Nurse 03/27/23 Beto Rinaldi MD [address] [place] [address] Surgery - Cardiothoracic 03/28/23 [place] [id number] [address] [address] 04/10/23 Samina Hay, CADENCE [address] [place] [address] Nurse Navigator - Oncology Registered Nurse 04/15/23 Liset Welch, VINNY [address] [place] [address] Nurse Practitioner Hematology and Oncology 04/29/23 Claudette Ansari MD [address] [place] [address] Medical Oncologist Hematology and Oncology 04/29/23 Davidson Dhillon LSW [address] [place] [address] Rock Climbing Instructor 04/29/23
[2023-07-04 11:33] LABS: Appearance Urine Cloudy (Clear); Bilirubin Urine Negative (Negative); Blood Urine 1+ (Negative); Color Urine Yellow (Yellow); Glucose Urine Negative (Negative); Ketones Urine Negative (Negative); Leukocyte Esterase Urine 1+ (Negative); Nitrite Urine Positive (Negative); Protein Urine Negative (Negative); Urobilinogen Urine 0.2 (0.2-1.0); pH Urine 5.5 (5.0-8.5)
[2023-07-04 11:45] LABS: Bacteria Urine Many; Squamous Epithelial Cell Urine Few (None-Few); WBC Clumps Urine Moderate; WBC Urine >100 (0-5)
== END 2023-07-04 11:22 | disposition home or self-care (01) ==
LOC: NPINS 11:21
PROVIDERS: PCP Family Medicine; Visit Provider Family Medicine
DX: N39.0 Urinary tract infection, site not specified (principal)
CPT/HCPCS: 81001; 81003; 87086; 87186

== ENCOUNTER 2023-07-15 12:58 | Outpatient (CLI) | payer OTHER, SELFPAY ==
--- OUTSIDE RECORDS SUMMARY | 2023-07-15 13:00 | XMS_ITS | Clinical Summary ---
Author Name Unknown Organization [facility] Address [address] [place] [address] Care Team Providers Care Boiler Shop Mechanic Name Role Phone Unavailable Primary Care Provider Unavailabl e Source Comments Patient records contain information from all sites at [facility]. For routine questions regarding patient records, call [phone] during business hours, M-F 8:00 AM - 5:00 PM Central Time. Record requests for emergency care only can be directed to [phone] at any time.[facility] Allergies Active Allergy Reactions Criticality Noted Date [...] Department Care Team Description 04/29/2023 9:07 AM SPAR FINISHER - 04/29/2023 11:15 AM SPAR FINISHER Hospital Encounter Department of Radiation Oncology in [address] [id number] Radha Radford M.D. 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 from Last 3 Months [...] Comments Blood Pressure 135/44 04/29/2023 9:23 AM SPAR FINISHER Pulse 76 04/29/2023 9:23 AM SPAR FINISHER Temperature 36.1 ??C (97 ??F) 04/29/2023 9:23 AM SPAR FINISHER Respiratory Rate - - Oxygen Saturation - - Inhaled Oxygen Concentration - - Weight 83.1 kg (183 lb 3.2 oz) 04/29/2023 9:23 A M SPAR FINISHER Height - - Body Mass Index - - Plan of Treatment Health Maintenance Due Date Last Done Comments Zoster Vaccines (1 of 2) 05/13/2012 03/18/2012 Thyroid Stimulating Hormone (TSH) test for thyroid function 12/19/2022 12/19/2021, 03/01/2021 COVID-19 Vaccine (2022- season) 2023 01/18/2023, 08/30/2022, 01/23/2022, Additional history exists Depression Screening (Annual PHQ-2) 03/18/2023 Fall Risk Screen (Annual) 03/18/2023 Glucose Test for Med Monitoring 04/08/2024 04/08/2023, 06/07/2021, 12/11/2019, Additional history exists DTaP,Tdap,and Td Vaccines (3 - Td or Tdap) 06/08/2028 06/08/2018, 05/01/2013 Pneumococcal vaccine (65+ years) Completed 02/27/2022, 02/21/2022, 11/17/2019, Additional history exists Influenza Vaccine Completed 12/14/2022, , 12/14/2020, Additional history exists HPV Vaccines Aged Out No longer eligi ble based on patient's age to complete this topic Medical Devices Implanted Type Area Project Safety Manager Device Identifier Shelf Expiration Date Model / Serial / Lot Stent Other Stent Other Heart Procedures Procedure Name Priority Date/Time Associated Diagnosis Comments OUTSIDE MR NEURO Routine 04/23/2023 1:15 PM SPAR FINISHER EXTI GLUCOSE POCT, B Routine 04/08/2023 1:27 PM SPAR FINISHER EXTI THYROID-STIMULATING HORMONE-SENSITIVE (S-TSH), S Routine 12/19/2021 2:04 PM CDT from Last 3 Months or Most Recently Relevant to Health Maintenance Results * MR HEAD BRAIN WWO-Outside MR Neuro (04/23/2023 1:15 PM SPAR FINISHER) Narrative IIMS - 04/29/2023 10:43 AM SPAR FINISHER This order has been created and auto-finalized to support the import of outside images. If available, original interpretation can be found on the Media Tab in Chart Review, in Document Viewer, or as an image in QREADS. If a re-interpretation or overread is required please follow defined workflow. ?? Provider Not In System IMG MRI PROCEDURE S IIMS NA from Last 3 Months or Most Recently Relevant to Health Maintenance
--- OUTSIDE RECORDS SUMMARY | 2023-07-15 13:00 | XMS_ITS | Referral Summary ---
Author Name Unknown Organization [facility] Address [address] [place] [address] Care Team Providers Care Industrial Editor Name Role Phone Unavailable Primary Care Provider Unavailabl e Source Comments Patient records contain information from all sites at [facility]. For routine questions regarding patient records, call [phone] during business hours, M-F 8:00 AM - 5:00 PM Central Time. Record requests for emergency care only can be directed to [phone] at any time.[facility] Encounters Date Type Department Care Team Description 04/29/2023 9:07 AM MACHINE TAPER - 04/29/2023 11:15 AM [facility] Hospital Encounter Department of Radiation Oncology in [address] [address] Radha Radford M.D. 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 from Last 3 Months [...] Comments Blood Pressure 135/44 04/29/2023 9:23 AM MACHINE TAPER Pulse 76 04/29/2023 9:23 AM MACHINE TAPER Temperature 36.1 ??C (97 ??F) 04/29/2023 9:23 AM MACHINE TAPER Respiratory Rate - - Oxygen Saturation - - Inhaled Oxygen Concentration - - Weight 83.1 kg (183 lb 3.2 oz) 04/29/2023 9:23 A M MACHINE TAPER Height - - Body Mass Index - - Plan of Treatment Not on file Medical Devices Implanted Type Area Concrete Laborer Device Identifier Shelf Expiration Date Model / Serial / Lot Stent Other Stent Other Heart Procedures Procedure Name Priority Date/Time Associated Diagnosis Comments OUTSIDE MR NEURO Routine 04/23/2023 1:15 PM MACHINE TAPER EXTI GLUCOSE POCT, B Routine 04/08/2023 1:27 PM MACHINE TAPER EXTI THYROID-STIMULATING HORMONE-SENSITIVE (S-TSH), S Routine 12/19/2021 2:04 PM CDT from Last 3 Months or Most Recently Relevant to Health Maintenance Results * MR HEAD BRAIN WWO-Outside MR Neuro (04/23/2023 1:15 PM MACHINE TAPER) Narrative IIMS - 04/29/2023 10:43 AM MACHINE TAPER This order has been created and auto-finalized [...]
--- OUTSIDE RECORDS SUMMARY | 2023-07-15 13:01 | XMS_ITS | Clinical Summary ---
Author Name Unknown Organization [facility] Address [place], [place] [address] Care Team Providers Care Journeyman Operator Assistant Name Role Phone Andrew Rodríguez MD Primary Care Provider + Cori Payne MD Unavailable Arabella Diaz RN, BSN Unavailable Beto Rinaldi MD Unavailable [facility], [place] Unavailable [facility] Unavailable Liset Welch NUTRITIONALIST Unavailable Claudette Ansari MD Unavailable Jacquie, Davidson Mcgill FLOOR FINISHER Unavailable [phone] Allergies Active Allergy Reactions Criticality Noted [...] Active Additional Information Patient not taking.Reported on 07/11/2023 lidocaine-priloca ine (EMLA) 2.5-2.5 % creamIndications: Non-small cell cancer of left lung (HC) Apply 5 g topically to affected area(s) each time if needed (Prior to port access). Apply quarter size amount to port 30-40 minutes prior to port access. 30 g 2 05/02/2023 Active Additional Information Patient not taking.Reported on 07/11/2023 gabapentin (NEURONTIN) 300 mg capsule Take 1 [...] Encounters Date Type Department Care Team Description 07/12/2023 Telephone [facility] [address] [facility] [place] [address] Liset Welch, NUTRITIONALIST Appointment 07/11/2023 1:00 PM CDT Office Visit [facility] [address] [place] [address] Claudette Ansari MD Follow Up (Non-small cell cancer of left lung (HC)//) 07/11/2023 Travel 07/08/2023 1:30 PM CDT - 07/08/2023 11:59 PM CDT Hospital Encounter [facility] [address] [place] [address] Non-small cell cancer of left lung (HC) 07/08/2023 Travel 07/04/2023 Hospital/[facility] Telephone Encounter [facility] [address] [place] [address] Veronica Galaviz, CADENCE Pre Procedure (PVP) 06/04/2023 9:00 AM CDT Office Visit [facility] [address] [place] [address] Claudette Ansari MD Follow Up (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)/) 06/04/2023 8:00 AM CDT - 06/04/2023 11:59 PM CDT Hospital Encounter [facility] [address] [place] [address] Non-small cell cancer of left lung (HC) (Primary Dx); Encounter for screening for other viral diseases 06/04/2023 Travel 05/30/2023 Social Work Encounter [facility] 200 [place] [address] Davidson Dhillon LSW Social Work Visit 05/29/2023 Telephone [facility] [address] [facility] [place] [address] Liset Welch, NUTRITIONALIST Care Coordination 05/29/2023 Hospital/[facility] Telephone Encounter [facility] [address] [facility] [place] [address] Veronica Galaviz RN Pre Procedure (PVP) 05/24/2023 Telephone [facility] [address] [facility] [place] [address] Liset Welch, NUTRITIONALIST Appointment 05/21/2023 4:00 PM PASSENGER AGENT Ancillary Procedure [facility] [address] [place] [address] 05/21/2023 Travel 05/21/2023 Telephone [facility] [address] [place] [address] Liset Welch, NUTRITIONALIST Patient update 05/21/2023 Telephone [facility] [address] [place] [address] Liset Welch, NUTRITIONALIST Appointment 05/17/2023 Hospital/[facility] Telephone Encounter [facility] [address] [place] [address] Claudette Ansari MD Pre Procedure 05/15/2023 Telephone [facility] [address] [place] [address] Liset Welch, NUTRITIONALIST Follow Up 05/14/2023 8:15 AM PASSENGER AGENT Office Visit [address] [address] Liset Welch, NUTRITIONALIST Follow Up (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)//) 05/14/2023 7:13 AM PASSENGER AGENT - 05/14/2023 11:59 PM PASSENGER AGENT Hospital Encounter [facility] [address] [place] [address] Non-small cell cancer of left lung (HC) (Primary Dx); Encounter for screening for other viral diseases; 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) 05/14/2023 Travel 05/13/2023 Telephone [facility] [address] [facility] [place] [address] Liset Welch, NUTRITIONALIST Appointment 05/13/2023 Hospital/[facility] Telephone Encounter [facility] [address] [place] [address] Veronica Galaviz RN Pre Procedure (PVP) 05/09/2023 2:00 PM PASSENGER AGENT - 05/09/2023 11:59 PM PASSENGER AGENT Hospital Encounter [facility] [address] [place] [address] Non-small cell cancer of left lung (HC) (Primary Dx); 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) 05/09/2023 2:00 PM PASSENGER AGENT Education [facility] [address] [place] [address] 05/09/2023 Travel 05/08/2023 Telephone [facility] [address] [place] [address] Jess Key, Questions (Questions about dressing over port placement) 05/07/2023 2:21 PM PASSENGER AGENT Anesthesia Event [facility] [address] [place] [address] Terri Corey, AMBER 05/07/2023 1:10 PM PASSENGER AGENT - 05/07/2023 2:30 PM PASSENGER AGENT Surgery [facility] [address] [place] [address] Jess Key, Ultrasound and fluoroscopic guided port placement 05/07/2023 11:57 AM PASSENGER AGENT - 05/07/2023 4:39 PM PASSENGER AGENT Hospital Encounter [facility] [address] [facility] [place] [address] Jess Key, DO Discharge Disposition: Home Self Care 05/07/2023 Travel 05/07/2023 Orders Only [facility] [address] [place] [address] Claudette Ansari MD <No scans attached> 05/02/2023 Telephone [facility] [address] [facility] [place] [address] Claudette Ansari MD New Med Request 05/02/2023 Telephone [facility] [address] [place] [address] Jess Key DO Surgery Scheduled 05/02/2023 Orders Only [facility] [address] [facility] [place] [address] Jess Key DO <No scans attached> 05/01/2023 Telephone [facility] [address] [place] [address] Claudette Ansari MD Education 04/29/2023 1:30 PM PASSENGER AGENT Office Visit [facility] [address] [facility] [place] [address] Claudette Ansari MD Consult ( Primary cancer of left lower lobe of lung) 04/29/2023 Travel 04/23/2023 1:00 PM PASSENGER AGENT - 04/23/2023 11:59 PM PASSENGER AGENT Hospital Encounter [facility] [address] [facility] [place] [address] Claudette Ansari MD 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) 04/23/2023 Travel 04/23/2023 Telephone [facility] [address] [place] [address] Claudette Ansari MD Appointment 04/15/2023 Oncology Nurse Navigation [facility] [address] [place] [address] Samina Hay, functional analyst Nurse Navigation (Introduction and Medical Oncology Consultation) from Last 3 Months Immunizations Name Administration Dates Next Due COVID-19 vaccine (Moderna 50 mcg/0.5mL) 12YO+ BIVALENT PF, MDV 08/30/2022 COVID-19 vaccine (Performance Indicator 30mcg/0.3mL) P F, MDV 05/14/2020,04/23/2020 Covid-19 Vaccine [...] Smoking Tobacco: Former Cigarettes 2 30 1 960 - 1990 Smokeless Tobacco: Never Tobacco Cessation:Counseling Given: Not [...] Sign Reading Time Taken Comments Blood Pressure 146/65 07/11/2023 12:33 PM CDT Pulse 76 07/11/2023 12:33 PM CDT Temperature 36.4 ??C (97.6 ??F) 07/11/2023 12:33 PM C DT Respiratory Rate 14 07/11/2023 12:33 PM CDT Oxygen Saturation 99% 07/11/2023 12:33 PM CDT Inhaled Oxygen Concentration - - Weight 82.8 kg (182 lb 8 oz) 07/11/2023 12:33 PM CDT Height 152.3 cm (4' 11.96) 05/14/2023 10:14 AM PASSENGER AGENT Body Mass Index 35.69 05/14/2023 10:14 AM PASSENGER AGENT Plan of Treatment Upcoming Encounters Date Type Department Care Team (Late st Contact Info) Description 08/28/2023 11:15 AM CDT Office Visit [facility] [address] [place] [address] Cori Payne MD [address] [place] [address] 10/10/2023 1:15 PM CDT Appointment [facility] [address] [place] [address] 10/10/2023 1:30 PM CDT Appointment [facility] [address] [place] [address] 10/16/2023 1:45 PM CDT Office Visit [facility] [address] [place] [address] Liset Welch NP [address] [place] [address] Health Maintenance Due Date Last Done Comments [...] history exists Medical Devices Implanted Type Area Fur Dry Cleaner Device Identifier Shelf Expiration Date Model / Serial / Lot Stent Uret [id number] Silhouette - [id number] Implanted:Qty: 1 on 05/03/2018 by Alin Miguel MD at [facility] Right: [employer] [id number]# / / [id number] Stent Uret [id number] Silhouette - [id number] Implanted:Qty: 1 on 05/03/2018 by Alin Miguel MD at [facility] Right: [employer] [id number]# / / [id number] Power Port Isp Mri 6fr [id number] - [id number] Implanted:Qty: 1 on 05/07/2023 by Jess Key DO at [facility] Right: Chest [employer] 08/15/2024 [id number] / / [id number] Procedures Procedure Name Priority Date/Time Associated Diagnosis Comments CT CHEST W Routine 07/08/2023 2:20 PM CDT Non-small cell cancer of left lung (HC) CBC WITH AUTO DIFFERENTIAL Routine 07/08/2023 1:39 PM CDT Non-small cell cancer of left lung (HC) COMP METABOLIC PANEL Routine 07/08/2023 1:39 PM CDT Non-small cell cancer of left lung (HC) CBC WITH AUTO DIFFERENTIAL Routine 07/08/2023 1:39 PM CDT Non-small cell cancer of left lung (HC) SCAN CORRESP-EKG RESULTS 07/05/2023 2:49 PM CDT SCAN CORRESP-LABORATOR Y RESULTS 07/05/2023 2:49 PM CDT SCAN CORRESP-IMAGING 07/05/2023 2:49 PM CDT RED CELL MORPHOLOGY STAT 06/04/2023 8:59 AM [...] W LTD DOPPLER Routine 05/21/2023 6:41 PM PASSENGER AGENT Positive blood culture History of transcatheter aortic valve replacement (TAVR) ONCOLOGY ABSOLUTE NEUTROPHIL COUNT STAT 05/14/2023 7:27 AM PASSENGER AGENT Non-small cell cancer of left lung (HC) Encounter for screening for other viral diseases HBSAG (HBS) STAT 05/14/2023 7:27 AM PASSENGER AGENT Non-small cell cancer of left lung (HC) Encounter for screening for other viral diseases COMP METABOLIC PANEL STAT 05/14/2023 7:27 AM PASSENGER AGENT Non-small cell cancer of left lung (HC) Encounter for screening for other viral diseases ANTI HBC STAT 05/14/2023 7:27 AM PASSENGER AGENT Non-small cell cancer of left lung (HC) Encounter for screening for other viral diseases CBC WITH AUTO DIFFERENTIAL Today 05/09/2023 3:26 PM PASSENGER AGENT 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) CBC WITH AUTO DIFFERENTIAL Today 05/09/2023 3:26 PM PASSENGER AGENT 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) COMP METABOLIC PANEL Today 05/09/2023 3:26 PM PASSENGER AGENT 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) IRON PLUS IRON BINDING CAP Today 05/09/2023 3:26 PM PASSENGER AGENT Non-small cell cancer of left lung (HC) FERRITIN Today 05/09/2023 3:26 PM PASSENGER AGENT Non-small cell cancer of left lung (HC) XR CENTRAL VENOUS CATHETER FLUORO Routine 05/07/2023 4:01 PM PASSENGER AGENT SUPRAGLOTTIC-LMA Routine 05/07/2023 2:34 PM PASSENGER AGENT INSERTION POWER PORT Elective 05/07/2023 2:11 PM PASSENGER AGENT Non-small cell carcinoma of left lung (HC) Case Notes No pathRequest C armBedside ultrasoundLikely on the right as patient with left-sided lung cancer BEDSIDE US STUDY ARCHIVE Routine 05/07/2023 12:03 PM PASSENGER AGENT MR HEAD BRAIN WWO Routine 04/23/2023 1:40 PM PASSENGER AGENT 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) from Last 3 Months Results * CT CHEST W (07/08/2023 2:20 PM CDT) Anatomical Region Laterality Modality CHEST, THORAX, HEART Computed To mography 07/09/2023 7:54 AM CDT Impressions 07/09/2023 7:54 AM CDT 1. Interval wedge resection of the previously noted left lower lobe mass with residual small pleural fluid collection. 2. Minimal nodular ground-glass densities in the left lobe less prominent than on the previous. Otherwise unchanged from 04/08/2023. No evidence of interval metastatic disease. Please note that all CT scans at this facility use dose modulation, iterative reconstruction, and/or weight-based dosing when appropriate to reduce radiation dose to as low as reasonably achievable. Dictated by Amanda Carrion MD @ 07/09/2023 7:54:20 AM (Electronically Signed) Narrative 07/09/2023 7:54 AM CDT For Patients: ??As a result of the Cures Act, medical imaging exams and procedure reports are released immediately into your electronic medical record. ??You may view this report before your referring provider. ??If you have questions, please contact your health care provider. INDICATION: Cka-skfsg-vddr lung cancer. TECHNIQUE: CT chest with IV contrast. COMPARISON: 04/08/2023 FINDINGS: Cardiovascular structures: Normal vascular enhancement of the pulmonary arteries, no sign of pulmonary embolism. Heart size is normal. AVR. No sign of aneurysm or dissection in the thoracic aorta. Mediastinum and libby: No mass or adenopathy. Lungs: Interval reds resection of the left lower lobe lung mass. Small pleural fluid collection posterior medial left thorax. Nodular ground-glass densities left upper lobe (3/) less prominent than on the previous. Minimal basilar linear atelectasis bilaterally unchanged. No interval pulmonary nodules mass or consolidation. Chest wall and axilla: No mass or adenopathy. Bones: Degenerative spine. No lytic or osteoblastic lesions. Upper abdomen: Unremarkable. Procedure Note Jude Carrion MD - 07/09/2023 For Patients: As a result of the Cures Act, medical imagingexams and procedure reports are released immediately into your electronicmedical record. You may view this report before your referring provider.If you have questions, please contact your health care provider. INDICATION: Jhi-zdife-wnns lung cancer. TECHNIQUE: CT chest with IV contrast. COMPARISON: 04/08/2023 FINDINGS: Cardiovascular structures: Normal vascular enhancement of the pulmonaryarteries, no sign of pulmonary embolism. Heart size is normal. AVR. Nosign of aneurysm or dissection in the thoracic aorta. Mediastinum and libby: No mass or adenopathy. Lungs: Interval reds resection of the left lower lobe lung mass. Smallpleural fluid collection posterior medial left thorax. Nodularground-glass densities left upper lobe (3/28) less prominent than on theprevious. Minimal basilar linear atelectasis bilaterally unchanged. Nointerval pulmonary nodules mass or consolidation. Chest wall and axilla: No mass or adenopathy. Bones: Degenerative spine. No lytic or osteoblastic lesions. Upper abdomen: Unremarkable. IMPRESSION: 1. Interval wedge resection of the previously noted left lower lobe masswith residual small pleural fluid collection. 2. Minimal nodular ground-glass densities in the left lobe less prominentthan on the previous. Otherwise unchanged from 04/08/2023. No evidence ofinterval metastatic disease. Please note that all CT scans at this facility use dose modulation,iterative reconstruction, and/or weight-based dosing when appropriate toreduce radiation dose to as low as reasonably achievable. Dictated by Amanda Carrion MD @ 07/09/2023 7:54:20 AM (Electronically Signed) Claudette Ansari MD CT * (ABNORMAL) CBC WITH AUTO DIFFERENTIAL (07/08/2023 1:39 PM CDT) Only the most recent of2 resultswithin the time period is included. WHITE BLOOD COUNT 6.1 4.5 - 11.0 thou/cu mm 07/08/2023 2:05 PM CDT [facility] RED BLOOD COUNT 4.17 4.00 - 5.20 mil/cu mm 07/08/2023 2:05 PM CDT [facility] HEMOGLOBIN 12.7 12.0 - 16.0 g/dL 07/08/2023 2:05 PM T [facility] HEMATOCRIT 40.6 33.0 - 51.0 % 07/08/2023 2:05 PM [facility] MCV 97 80 - 100 fL 07/08/2023 2:05 PM [facility] MCH 30.5 26.0 - 34.0 pg 07/08/2023 2:05 PM [facility] MCHC 31.3(L) 32.0 - 36.0 g/dL 07/08/2023 2:05 PM [facility] RDW 16.0(H) 11.5 - 15.5 % 07/08/2023 2:05 PM [facility] PLATELET COUNT 202 140 - 440 thou/cu mm 07/08/2023 2:05 PM [facility] MPV 10.0 6.5 - 11.0 fL 07/08/2023 2:05 PM [facility] % NEUT 69.8 % 07/08/2023 2:05 PM [facility] % LYMPH 19.1 % 07/08/2023 2:05 PM [facility] % MONO 5.8 % 07/08/2023 2:05 PM [facility] % EOS 4.8 % 07/08/2023 2:05 PM [facility] % BASO 0.5 % 07/08/2023 2:05 PM [facility] ABSOLUTE NEUTROPHILS 4.3 1.7 - 7.0 thou/cu mm 07/08/2023 2:05 PM [facility] ABSOLUTE LYMPHOCYTES 1.2 0.9 - 2.9 thou/cu mm 07/08/2023 2:05 PM [facility] ABSOLUTE MONOCYTES 0.4 <0.9 thou/cu mm 07/08/2023 2:05 PM [facility] ABSOLUTE EOSINOPHILS 0.3 <0.5 thou/cu mm 07/08/2023 2:05 PM [facility] ABSOLUTE BASOPHILS 0.0 <0.3 thou/cu mm 07/08/2023 2:05 PM [facility] Blood BLOOD SPECIMEN / Unknown Venipuncture / Unknown 07/08/2023 1:39 PM CDT 07/08/2023 1:39 PM CDT [facility] - 07/08/2023 2:05 PM CDT This procedure was originally ordered at [facility]. This procedure was originally ordered at [facility]. Claudette Ansari MD HEMATOLOGY [facility] [address] [place] [address] * (ABNORMAL) COMP METABOLIC PANEL (07/08/2023 1:39 PM CDT) Only the most recent of4 resultswithin the time period is included. SODIUM 142 136 - 145 mmol/L 07/08/2023 2:01 PM [facility] POTASSIUM 4.0 3.5 - 5.1 mmol/L 07/08/2023 2:01 PM [facility] CHLORIDE 104 98 - 107 mmol/L 07/08/2023 2:01 PM [facility] CO2,TOTAL 23 22 - 29 mmol/L 07/08/2023 2:01 PM [facility] ANION GAP 15 5 - 18 07/08/2023 2:01 PM [facility] GLUCOSE 260(H) 70 - 99 mg/dL 07/08/2023 2:01 PM [facility] CALCIUM 9.6 8.8 - 10.2 mg/dL 07/08/2023 2:01 PM [facility] BUN 26(H) 8 - 23 mg/dL 07/08/2023 2:01 PM [facility] CREATININE 1.36(H) 0.50 - 0.90 mg/dL 07/08/2023 2:01 PM [facility] BUN/CREAT RATIO 19 10 - 20 2:01 PM [facility] eGFR 39(L) >90 mL/min/1.7 3m2 07/08/2023 2:01 PM [facility] Comment:As of 2021, eG FR is calculated by the CKD-EPI creatinine equation without race adjustment. ??eGFR can be influenced by muscle mass, exercise, and diet. ??The reported eGFR is an estimation only and is only applicable if the renal function is stable. ALBUMIN 4.3 4.0 - 4.9 g/dL 07/08/2023 2:01 PM CDT [facility] PROTEIN,TOTAL 7.0 6.0 - 8.0 g/dL 07/08/2023 2:01 PM CDT [facility] BILIRUBIN,TOTAL 0.3 0.0 - 1.2 mg/dL 07/08/2023 2:01 PM T [facility] ALK PHOSPHATASE 109(H) 35 - 104 IU/L 07/08/2023 2:01 PM CDT [facility] ALT (SGPT) 31 10 - 35 IU/L 07/08/2023 2:01 PM CDT [facility] AST (SGOT) 56(H) 10 - 35 IU/L 07/08/2023 2:01 PM CDT [facility] Blood BLOOD SPECIMEN / Unknown Venipuncture / Unknown 07/08/2023 1:39 PM CDT 07/08/2023 1:39 PM CDT Claudette Ansari MD CHEMISTRY [facility] [address] [place] [address] * SCAN CORRESP-LABORATORY RESULTS (07/05/2023 2:49 PM CDT) Narrative 07/05/2023 2:49 PM CDT Ordered by an unspecified provider. Other Clinical Staff OTHER * SCAN CORRESP-EKG RESULTS (07/05/2023 2:49 PM CDT) Narrative 07/05/2023 2:49 PM CDT Ordered by an unspecified provider. Other Clinical Staff OTHER * SCAN CORRESP-IMAGING (07/05/2023 2:49 PM CDT) Anatomical Region Laterality Modality Other Narrative 07/05/2023 2:49 PM CDT Ordered by an unspecified provider. Other Clinical Staff OTHER * (ABNORMAL) ONCOLOGY ABSOLUTE NEUTROPHIL COUNT (06/04/2023 8:59 AM CDT) Only the most recent of2 resultswithin the time period is included. WHITE BLOOD COUNT 8.9 4.5 - 11.0 thou/cu mm 06/04/2023 9:39 AM [facility] RED BLOOD COUNT 3.50(L) 4.00 - 5.20 mil/cu mm 06/04/2023 9:39 AM [facility] HEMOGLOBIN 10.5(L) 12.0 - 16.0 g/dL 06/04/2023 9:39 AM [facility] HEMATOCRIT 33.9 33.0 - 51.0 % 06/04/2023 9:39 AM [facility] MCV 97 80 - 100 fL 06/04/2023 9:39 AM [facility] MCH 30.0 26.0 - 34.0 pg 06/04/2023 9:39 AM [facility] MCHC 31.0(L) 32.0 - 36.0 g/dL 06/04/2023 9:39 AM [facility] RDW 17.0(H) 11.5 - 15.5 % 06/04/2023 9:39 AM [facility] PLATELET COUNT 250 140 - 440 thou/cu mm 06/04/2023 9:39 AM [facility] MPV 9.0 6.5 - 11.0 fL 06/04/2023 9:39 AM [facility] NRBC 06/04/2023 9:39 AM [facility] ABS NRBC 06/04/2023 9:39 AM [facility] Blood BLOOD SPECIMEN / Unknown Venipuncture / Unknown 06/04/2023 8:59 AM CDT 06/04/2023 9:01 AM [facility] - 06/04/2023 9:39 AM CDT Includes CBC and differential. Drawn from port; treatment pending. Claudette Ansari MD HEMATOLOGY Performing Organization Address City/[facility]/ZIP Co de Phone Number [facility] [address] [place] [address] * (ABNORMAL) RED CELL MORPHOLOGY (06/04/2023 8:59 AM CDT) Pathologist [facility] TEARDROP CELLS Few 06/04/2023 9:39 AM CDT [facility] RBC COMMENT Present(A ) RBC morphology appears normal, RBC morphology within normal limits for newborns. 06/04/2023 9:39 AM CDT [facility] Blood BLOOD SPECIMEN / Unknown Venipuncture / Unknown 06/04/2023 8:59 AM CDT 06/04/2023 9:01 AM CDT [facility] - 06/04/2023 9:39 AM CDT Includes CBC and differential. Drawn from port; treatment pending. Claudette Ansari MD HEMATOLOGY Performing Organization Address [facility] Co de Phone Number [facility] [address] [place] [address] * PLATELET ESTIMATE (06/04/2023 8:59 AM CDT) [facility] PLATELET ESTIMATE Adequate Adequate, No estimate 06/04/2023 9:39 AM CDT [facility] Blood BLOOD SPECIMEN / Unknown Venipuncture / Unknown 06/04/2023 8:59 AM CDT 06/04/2023 9:01 AM CDT [facility] - 06/04/2023 9:39 AM CDT Includes CBC and differential. Drawn from port; treatment pending. Claudette Ansari MD HEMATOLOGY Performing Organization Address City/[facility]/ZIP Co de Phone Number [facility] [address] [place] [address] * (ABNORMAL) MANUAL DIFFERENTIAL (06/04/2023 8:59 AM CDT) % NEUTROPHILS 77.0 % 06/04/2023 9:39 AM T [facility] % LYMPHOCYTES 10.0 % 06/04/2023 9:39 AM [facility] H[facility] LAB[facility]ATORY % MONOCYTES 5.0 % 06/04/2023 9:39 AM [facility] % EOSINOPHILS 3.0 % 06/04/2023 9:39 AM [facility] % BASOPHILS 4.0 % 06/04/2023 9:39 AM [facility] % MYELOCYTES 1.0(H) <0.1 % 06/04/2023 9:39 AM T [facility] NEUTROPHILS ABSOLUTE 6.9 1.7 - 7.0 thou/cu mm 06/04/2023 9:39 AM [facility] LYMPHOCYTES ABSOLUTE 0.9 0.9 - 2.9 thou/cu mm 06/04/2023 9:39 AM [facility] MONOCYTES ABSOLUTE 0.4 <0.9 thou/cu mm 06/04/2023 9:39 AM [facility] EOSINOPHILS ABSOLUTE 0.3 <0.5 thou/cu mm 06/04/2023 9:39 AM [facility] BASOPHILS ABSOLUTE 0.4(H) <0.3 thou/cu mm 06/04/2023 9:39 AM [facility] ABSOLUTE MYELOCYTES 0.1(H) <=0.0 thou/cu mm 06/04/2023 9:39 AM [facility] Blood BLOOD SPECIMEN / Unknown Venipuncture / Unknown 06/04/2023 8:59 AM CDT 06/04/2023 9:01 AM T [facility] LABORATORY - 06/04/2023 9:39 AM CDT Includes CBC and differential. Drawn from port; treatment pending. Claudette Ansari MD HEMATOLOGY [facility] [address] [place] [address] * ECHO TTE LIMITED WO CONTRAST W COLOR W LTD DOPPLER (05/21/2023 6:41 PM PASSENGER AGENT) AORTIC VALVE MEAN PG 18 mmHg EJECTION FRACTION 65 % PEAK TR VELOCITY 3.6 m/s LVEDD 4.6 cm MITRAL VALVE MR ERO 31 mm2 Anatomical Region Laterality Modality Ultrasound 05/21/2023 5:51 PM PASSENGER AGENT Narrative 05/21/2023 7:08 PM PASSENGER AGENT ECHOCARDIOGRAM JOZEF THOMPSON ? Accession#: ?? [id number] : ?1940 82 years Study Date: ?? 05/21/2023 5:51:54 PM Gender: F ?BP: ? 123/52 mmHg Height: 152.00 cm ?BSA: ?1.83 m? ? ? Weight: 87.00 kg ? Tech: ? MTS ? Referring MD: LIZET SOTO Site: ? [facility] Reading Location: [facility] Patient Location: Inpatient. Procedure: Limited 2D , [...] . This study was interpreted by an [facility] accredited facility. CC: HIM (med records) [facility], Med/Surg - IP [facility]. ??Final ?? Procedure Note Harris Vasquez MD - 05/21/2023 ECHOCARDIOGRAM JOZEF THOMPSON : 1940 82 years Study Date: 05/21/2023 5:51:54 PM Gender: F BP: 123/52 mmHg Height: 152.00 cm BSA: 1.83 m? ? ? Weight: 87.00 kg Tech: DENYS Referring MD: LIZET SOTO Site: [facility] Reading Location: [facility] Patient Location: Inpatient. Procedure: Limited 2D , [...] [facility] accredited facility. CC: HIM (med records) [facility], Med/Surg - IP [facility]. Final Lizet Soto MD ECHO ORD * HBSAG (HBS) (05/14/2023 7:27 AM PASSENGER AGENT) HBSAG Nonreactive Nonreactive 05/14/2023 4:27 PM PASSENGER AGENT [facility] Blood BLOOD SPECIMEN / Unknown Line/Port / Unknown 05/14/2023 7:27 AM PASSENGER AGENT 05/14/2023 7:32 AM PASSENGER AGENT Liset Welch NP [facility] [address] [place] [address], * ANTI HBC (05/14/2023 7:27 AM PASSENGER AGENT) ANTI HBC Non-React carissa Non-React carissa 05/14/2023 4:27 PM PASSENGER AGENT [facility] Comment:Anti-HBc Antibodies not detected. Does not exclude the possibility of exposure to or infection with HBV. Levels of Anti-HBc may be below the cut-off in early infection. Blood BLOOD SPECIMEN / Unknown Line/Port / Unknown 05/14/2023 7:27 AM PASSENGER AGENT 05/14/2023 7:32 AM PASSENGER AGENT Liset L Selly NUTRITIONALIST SEND OUTS Performing Organization Address City/[facility]/ZIP Co de Phone Number [facility] [address] [place] [id number], [place] * IRON PLUS IRON BINDING CAP (05/09/2023 3:26 PM PASSENGER AGENT) Pathologist [facility] IRON 47 37 - 145 ug/dL 05/10/2023 1:52 PM PASSENGER AGENT [facility] UIBC (UNSATURATED) 257 112 - 347 ug/dL 05/10/2023 1:52 PM PASSENGER AGENT [facility] IRON BINDING CAPACITY 304 250 - 400 ug/dL 05/10/2023 1:52 PM PASSENGER AGENT [facility] IRON,% SATURATION 15 14 - 50 % 05/10/2023 1:52 PM PASSENGER AGENT [facility] Blood BLOOD SPECIMEN / Unknown Line/Port / Unknown 05/09/2023 3:26 PM PASSENGER AGENT 05/09/2023 3:31 PM PASSENGER AGENT Claudette Ansari MD CHEMISTRY Performing Organization Address [facility] Co de Phone Number [facility] [address] [place] [phone], [place] * FERRITIN (05/09/2023 3:26 PM PASSENGER AGENT) Pathologist [facility] FERRITIN 89.1 15.0 - 150.0 ng/mL 05/10/2023 1:52 PM PASSENGER AGENT [facility] Blood BLOOD SPECIMEN / Unknown Line/Port / Unknown 05/09/2023 3:26 PM PASSENGER AGENT 05/09/2023 3:31 PM PASSENGER AGENT Claudette Ansari MD CHEMISTRY Performing Organization Address City/[facility]/ZIP Co de Phone Number [facility] [address] [place] [phone], [place] * XR CENTRAL VENOUS CATHETER FLUORO (05/07/2023 4:01 PM PASSENGER AGENT) Anatomical Region Laterality Modality CHEST, HEART X-Ray Angiograph y Jess Key DO FLUOROSCOPY * Supraglottic (05/07/2023 2:34 PM PASSENGER AGENT) Narrative Terri Corey CRNA - 05/07/2023 2:34 PM PASSENGER AGENT Terri Corey CRNA ? 05/07/2023 ??2:34 PM Procedure: Supraglottic Patient location during procedure: OR Supraglottic Airway Properties Mask Ventilation: not attempted Type: i-gel Tube Size: 4 Insertion Attempts: 1 Placement Verification: auscultation and CO2 detection Assessment Assessment: atraumatic and dentition unchanged Airway Intervention: secured Terri Corey CRNA ANESTHESIA PX NO TE ORDERABLES * MR BRAIN W/WO CONTRAST (04/23/2023 1:40 PM PASSENGER AGENT) Anatomical Region Laterality Modality BRAIN, HEAD Magnetic Resonan ce 04/23/2023 1:57 PM PASSENGER AGENT Impressions 04/23/2023 1:57 PM PASSENGER AGENT 1. No acute intracranial abnormality. 2. No [...] PM (Electronically Signed) Narrative 04/23/2023 1:57 PM PASSENGER AGENT For Patients: ??As a result of the Century Cures Act, medical imaging exams and [...] PM (Electronically Signed) Claudette Ansari MD MR from Last 3 Months Advance Directives * [...] Status Discussion: Per Existing Order Care Teams Journeyman Operator Assistant Relationship Specialty Start Date End Date Andrew Rodríguez MD [address] [place] [address] PCP - General Family Practice 09/08/21 Cori Payne MD [address] [place] [address] Psychiatry 09/08/21 Arabella Diaz, RN, BSN [address] [place] [address] Nurse Navigator - Oncology Registered Nurse 03/27/23 Beto Rinaldi MD [address] [place] [address] Surgery - Cardiothoracic 03/28/23 [facility] [place] [address] [place] [address] 04/10/23 [facility] [address] [place] [address] Nurse Navigator - Oncology Registered Nurse 04/15/23 Liset Welch, NUTRITIONALIST [address] [place] [address] Nurse Practitioner Hematology and Oncology 04/29/23 Claudette Ansari MD [address] [place], [place] [id number] Medical Oncologist Hematology and Oncology 04/29/23 Davidson Dhillon LSW [address] [place], [place] [phone] [employer] Launch Commander 04/29/23
--- OUTSIDE RECORDS SUMMARY | 2023-07-15 13:01 | XMS_ITS ---
Author Name Unknown Organization [facility] Address [address] [place] [address] Care Team Providers Care Armature And Rotor Winder Name Role Phone Unavailable Unavailable Unavailable Surgery Details Not on file Complications Check Surgery Details section. Procedure Estimated Blood Loss Check Surgery Details section. Procedure Findings Check Surgery Details section. Procedure Specimens Taken Check Surgery Details section.
--- OUTSIDE RECORDS SUMMARY | 2023-07-15 13:01 | XMS_ITS | Encounter Summary ---
Author Name Unknown Organization [facility] Address [address] [place] [address] Care Team Providers Care Grain Shoveler Name Role Phone Unavailable Primary Care Provider Unavailabl e Encounter Details Date Type Department Care Team (Late st Contact Info) Description 04/19/2023 Tumor Board Conference Department of Radiation Oncology in [place], [place] [address] [place] [address] Radha Radford M.D. [address] [place] [address] Social History Tobacco Use Types Packs/Day Years [...] therapy. There are clinical trials available in [place] if she is interested. We understand that she will be meeting Drs. Ansari and Malina for evaluations. Radha Radford M.D. Note: Tumor board recommendations are developed via multidisciplinary specialty participation with the most current information available at that time, therefore, final treatment plan is to be decided between the patient and the treating physician. NE CARGO SURVEYOR documented in this encounter Plan of Treatment Not on file documented as of this encounter Visit Diagnoses Not on filedocumented in this encounter
--- OUTSIDE RECORDS SUMMARY | 2023-07-15 13:01 | XMS_ITS | Encounter Summary ---
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 [address] [place] [address] Referral ID Status Reason Start Date Expiration Date Visits Re quested Visits Authorized [id number] Closed 04/16/2023 04/15/2024 1 1 Encounter Details Date Type Department Care Team (Latest Contact Info) Description 04/29/2023 9:07 AM POCKET OPERATOR - 04/29/2023 11:15 AM [facility] Hospital Encounter Department of Radiation Oncology in [place], [place] [address] [place] [phone] Radha Radford M.D. [address] [place] [address] Malignant Neoplasm Of Unspecified Part Of Left [...] Comments Blood Pressure 135/44 04/29/2023 9:23 AM POCKET OPERATOR Pulse 76 04/29/2023 9:23 AM POCKET OPERATOR Temperature 36.1 ??C (97 ??F) 04/29/2023 9:23 AM POCKET OPERATOR Respiratory Rate - - Oxygen Saturation - - Inhaled Oxygen Concentration - - Weight 83.1 kg (183 lb 3.2 oz) 04/29/2023 9:23 A M POCKET OPERATOR Height - - Body Mass Index - [...] mouth daily. Do not crush or chew. oqufdjujigiv-dvldhgud-yi tein (CENTURY MATURE) tablet Take 1 tablet [...] Lung (HCC) 01/13/2023 Other Patient presented to [facility] Emergency room for right low back [...] the same day pulmonary resection specimen. See [id number]. 04/19/2023 Tumor Board Recommendation: All agreed to consider adjuvant chemoimmunotherapy provided MRI brain is negative. No indications for adjuvant radiation therapy. There are clinical trials available in [place] if she is interested. 04/23/2023 Critical Imaging [...] potentially transfer their medical oncology care to [facility], as they live in [place], [place]. We told them to inform Dr. [...] Salgado APRN, C.N.P., D.N.P. 04/29/2023 10:30 AM POCKET OPERATOR [facility] [address] [place] [address] ET OPERATOR Associated attestation - Radha Radford M.D. - 04/29/2023 11:14 AM POCKET OPERATOR RADIATION ONCOLOGY CONSULT I saw and evaluated [...] did explain that I was at the [facility] tumor board and do not recall a specific discussion about adjuvant radiation therapy. I did have the opportunity to present her case at the daily [facility] tumor board and all agreed with [...] by: Radha Radford M.D. 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
--- OUTSIDE RECORDS SUMMARY | 2023-07-15 13:01 | XMS_ITS | Data Portability ---
Author Name Unknown Address [address] [place] [address] Phone [phone] Organization [facility] Address [address] [facility] [address] [place] [address] Care Team Providers Care Crime Lab Technician Name Role Phone SAL RODRIGUES Primary Care Provider Assessment Encounter Date Assessment Date Assessment LastModified by Organization Details LastModified Time 11/30/2021 11/30/2021 81 year old female with history of kidney stones and kidney disease. Patient more so had questions regarding her kidney disease. I explained that her primary care should refer her to a spare hand if necessary. I encouraged her to speak [...] recorded. Lab urinalysis , dipstick 2021 022 [facility], [address], [place] [address], [place], [address], 13:05:21 Referral None recorded. Procedures None recorded. Surgeries None recorded. Imaging None recorded. Medication Orders None recorded. Patient TargetsNo targets recorded. Patient InstructionsNo instructions recorded. Reason for Referral None Reported. Results Created Date Observation Date Name Description Value Unit Range Abnormal Flag LastModifiedBy Organization Detail LastModifiedTime 12/01/19 22 11/30/2021 UA DIP CS ADVAN TUS color -advantus yellow yellow Not Available [facility] [address] [facility] [address], [place], [address], 11/30/2021 13:05:21 12/01/19 22 11/30/2021 UA DIP CS ADVAN TUS appearance -advantus SL cloudy clear abnormal Not Available [facility] [address] [place] [address] 200, [place], [address], 11/30/2021 13:05:21 12/01/19 22 11/30/2021 UA DIP CS ADVAN TUS glucose -advantus 500 mg/dL negati ve abnormal Not Available [facility] [address] [place] [address] 200, [place], [address], 11/30/2021 13:05:21 12/01/19 22 11/30/2021 UA DIP CS ADVAN TUS bilirubin -advantus negati ve negati ve Not Available [facility] [address] [place] [address] 200, [place], [address], 11/30/2021 13:05:21 12/01/19 22 11/30/2021 UA DIP CS ADVAN TUS ketones -advantus negati ve mg/dL negati ve Not Available [facility] [address] [place] [address] 200, [place], [address], 11/30/2021 13:05:21 12/01/19 22 11/30/2021 UA DIP CS ADVAN TUS sp. gravity -advantus 1.020 1.010- 1.025 Not Available [facility] [address] [place] [address] 200, [place], [address], 11/30/2021 13:05:21 12/01/19 22 11/30/2021 UA DIP CS ADVAN TUS pH -advantus 6.0 5.0-8. 0 Not Available [facility] [address] [facility] [address], [place], [address], 11/30/2021 13:05:21 12/01/19 22 11/30/2021 UA DIP CS ADVAN TUS protein -advantus negati ve mg/dL negati ve Not Available [facility] [address] [facility] [address], [place], [address], 11/30/2021 13:05:21 12/01/19 22 11/30/2021 UA DIP CS ADVAN TUS urobilinogen -advantus 0.2 normal Not Available [facility] [address] [facility] [address], [place], [address], 11/30/2021 13:05:21 12/01/19 22 11/30/2021 UA DIP CS ADVAN TUS nitrites -advantus negati ve negati ve Not Available [facility] [address] [place] [address] 200, [place], [address], 11/30/2021 13:05:21 12/01/19 22 11/30/2021 UA DIP CS ADVAN TUS blood -advantus negati ve negati ve Not Available [facility] [address] [place] [address] 200, [place], [address], 11/30/2021 13:05:21 12/01/19 22 11/30/2021 UA DIP CS ADVAN TUS leukocytes -advantus modera te negati ve abnormal Not Available [facility] [address] [place] [address] 200, [place], [address], 11/30/2021 13:05:21 12/01/19 22 11/30/2021 UA DIP CS ADVAN TUS performed by kian Wasserman Not Available [facility] [address] [place] [address] 200, [place], [address], 11/30/2021 13:05:21 12/01/19 22 11/30/2021 UA DIP CS ADVAN TUS total urine volume (mL) 10 /mL Not Available [facility] [address] [facility] [address], [place], [address], 11/30/2021 13:05:21 12/01/19 22 11/30/2021 UA MICRO SCOPI C U-WBC 10 - 25 [hpf] 0 - 2 abnormal Not Available [facility] [address] [place] [address] 200, [place], [address], 11/30/2021 13:05:27 12/01/19 22 11/30/2021 UA MICRO SCOPI C U-RBC 0 - 2 [hpf] 0 - 2 Not Available [facility] [address] [place] [address] [address], [place], [address], 11/30/2021 13:05:27 12/01/19 22 11/30/2021 UA MICRO SCOPI C bacteria modera te [hpf] negati ve abnormal Not Available [facility] [address] [place] [address] 200, [place], [address], 11/30/2021 13:05:27 12/01/19 22 11/30/2021 UA MICRO SCOPI C squamous epi modera te /lpf negati ve,sma ll abnormal Not Available [facility] [address] [place] [address] 200, [place], [address], 11/30/2021 13:05:27 12/01/19 22 11/30/2021 URINE CULTU RE final report microb iology result s Not Available [facility] [address] [place] [address] 200, [place], [address], 12/02/2021 10:00:13 11/02/19 22 06/07/2021 CT, abdom [...] Name and Address Organization Details Recorded Time [id number] Medicinal product containin g penicilli n and acting as antibacte rial agent (product) medicatio n hives Not available Not available 11/04/2021 [id number] 05 SNOMED swell ing and hives Not [...] Address Organization Details Last Updated DateTime 11/30/2021 76883.18 g 152.4 cm [facility] 11/30/2021 11:15:56 Date Recorded [...] not available 11/30/2021 Preferred Language Citizen Of [place] Information not available 11/30/2021 Number Of Pregnancies [...] history of cancer Medical History Condition Response Sexually Transmitted Infection N Diabetes Y Other N Bleeding Disorder N High Blood Pressure Y Kidney Stones Y High Cholesterol Y GERD/Acid Reflux N Heart Disease Y Cancer N Depression Y Lung Disease N Gynecological History Statement/Question Response If Post Menopausal, [...] Encounter Closed Date Diagnosis/Indication Diagnosis SNOMED-CT Code [id number] Monse Slaughter PA-C Hugh grewal [address] [place] [address],[address] [address] 11/30/2021 10:56:09 11/30/2021 12:06:56 History of calculus of kidney [id number] Health Concerns Section Related Observation LastModified by Organization Detai ls LastModified Time None Recorded Concern Status LastModified by Organization Details LastModified Time None Recorded Advance Directives Directive None Recorded Payers Encounter Date Sequence Insurance Name Policy Number Policy Osorio Covered Member ID Osorio Member ID Guarantor Name 11/30/2021 1 [employer] - DOS ON OR AFTER 19 (MEDICARE REPLACEMENT/ ADVANTAGE - HMO) [id number] Annabella Longoria [id number] Annabella Longoria Notes Date Note Type Note Provider Name and Address Organization Details Recorded Time 11/30/2021 text/html HPI Notes: This is a 81 year old female with history of kidney stones here for follow up. She reports recent diagnosis of stage 3 kidney disease. She has a history of kidney stones (s/p ESWL in [place] - 2016), Right ureteroscopy with laser lithotripsy, [...] children, all vaginal deliveries. Monse Slaughter PA-C [address] [place] [address],[address], [place], [address], [facility] 11/30/2021 14:53:43 OBGyn Episode No OBEpisode recorded.
== END 2023-07-15 12:59 | disposition home or self-care (01) ==
LOC: WOUND 12:59
PROVIDERS: PCP Family Medicine; Visit Provider Nurse Practitioner Family
DX: L89.893 Pressure ulcer of other site, stage 3 (principal); E11.40 Type 2 diabetes mellitus with diabetic neuropathy, unspecified
CPT/HCPCS: G0463

== ENCOUNTER 2023-12-14 17:22 | Emergency (ER) | payer OTHER, SELFPAY ==
[2023-12-14 17:31] VITALS: BP 142/80; PULSE 77; RESP 18; TEMP 36.3; O2SAT 96; BMI 36.9
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
--- OUTSIDE RECORDS SUMMARY | 2023-12-14 18:23 | XMS_ITS | Referral Summary ---
Author Organization [facility] Address [address] [place] [id number] Care Team Providers Care Tool Planer Set Up Operator Name Role Phone Unavailable Primary Care Provider Unavailabl e Source Comments Patient records contain information from all sites at [facility]. For routine questions regarding patient records, call [phone] during business hours, M-F 8:00 AM - 5:00 PM Central Time. Record requests for emergency care only can be directed to [phone] at any time.[facility] Allergies Active Allergy Reactions Criticality Noted Date [...] Years Used Date Smoking Tobacco: Former Cigarettes - 1983 Smokeless Tobacco: Never Tobacco Cessation:Counseling [...] Comments Blood Pressure 135/44 04/29/2023 9:23 AM SECONDARY ENGLISH TEACHER Pulse 76 04/29/2023 9:23 AM SECONDARY ENGLISH TEACHER Temperature 36.1 ??C (97 ??F) 04/29/2023 9:23 AM SECONDARY ENGLISH TEACHER Respiratory Rate - - Oxygen Saturation - - Inhaled Oxygen Concentration - - Weight 83.1 kg (183 lb 3.2 oz) 04/29/2023 9:23 A M SECONDARY ENGLISH TEACHER Height - - Body Mass Index - - Plan of Treatment Not on file Medical Devices Implanted Type Area Broomcorn Thresher Device Identifier Shelf Expiration Date Model / Serial / Lot Stent Other Stent Other Heart
--- OUTSIDE RECORDS SUMMARY | 2023-12-14 18:23 | XMS_ITS ---
Author Organization [facility] Address [address] [place] [id number] Care Team Providers Care Social Work Msw Name Role Phone Unavailable Unavailable Unavailable Surgery Details Not on file Complications Check Surgery Details section. Procedure Estimated Blood Loss Check Surgery Details section. Procedure Findings Check Surgery Details section. Procedure Specimens Taken Check Surgery Details section.
--- OUTSIDE RECORDS SUMMARY | 2023-12-14 18:23 | XMS_ITS | Clinical Summary ---
Author Organization [facility] Address [address] [place] [id number] Care Team Providers Care Quantometer Operator Name Role Phone Unavailable Primary Care Provider Unavailabl e Source Comments Patient records contain information from all sites at [facility]. For routine questions regarding patient records, call [phone] during business hours, M-F 8:00 AM - 5:00 PM Central Time. Record requests for emergency care only can be directed to [phone] at any time.[facility] Allergies Active Allergy Reactions Criticality [...] from 04/08/2023:Stage IIIB(pT3, pN2, cM0) - Unsigned Family History Medical History Relation Name Comments Heart failure Father Vaginal cancer Mother Relation Name Status Comments Father Mother Social History Tobacco Use Types Packs/Day Years Used Date Smoking Tobacco: Former Cigarettes 1 9 - 1983 Smokeless Tobacco: Never Tobacco Cessation:Counseling [...] Comments Blood Pressure 135/44 04/29/2023 9:23 AM DIRECTOR NICU Pulse 76 04/29/2023 9:23 AM DIRECTOR NICU Temperature 36.1 ??C (97 ??F) 04/29/2023 9:23 AM DIRECTOR NICU Respiratory Rate - - Oxygen Saturation - - Inhaled Oxygen Concentration - - Weight 83.1 kg (183 lb 3.2 oz) 04/29/2023 9:23 A M DIRECTOR NICU Height - - Body Mass Index - - Plan of Treatment Health Maintenance Due Date Last Done Comments Zoster Vaccines (1 of 2) 05/13/2012 03/18/2012 RSV vaccine - (32-36 weeks) or 60+ years (1 - 1-dose 75+ series) 2016 Thyroid Stimulating Hormone (TSH) test for thyroid function 12/19/2022 12/19/2021, 03/01/2021 Depression Screening (Annual PHQ-2) 03/18/2023 Fall Risk Screen (Annual) 03/18/2023 COVID-19 Vaccine (2023- season) 2023 01/18/2023, 08/30/2022, 01/23/2022, Additional history exists Influenza Vaccine (#1) 2023 , 01/02/2022, 12/14/2020, Additional history exists Glucose Test for Med Monitoring 04/08/2024 04/08/2023, 06/07/2021, 12/11/2019, Additional history exists DTaP,Tdap,and Td Vaccines (3 - Td or Tdap) 06/08/2028 06/08/2018, 05/01/2013 Pneumococcal vaccine (65+ years) Completed 02/27/2022, 02/21/2022, 11/17/2019, Additional history exists HPV Vaccines Aged Out No longer eligi ble based on patient's age to complete this topic Medical Devices Implanted Type Area Marketing And Communications Officer Device Identifier Shelf Expiration Date Model / Serial / Lot Stent Other Stent Other Heart
--- OUTSIDE RECORDS SUMMARY | 2023-12-14 18:23 | XMS_ITS | Clinical Summary ---
Author Organization [email or web address] Address [place], [place] [address] Care Team Providers Care Kiln Door Builder Name Role Phone Andrew Rodríguez MD Primary Care Provider + Cori Payne MD Unavailable Arabella Diaz RN, BSN Unavailable Beto Rinaldi MD Unavailable [phone] [facility], [place] Unavailable [facility] Unavailable Liset Welch COSTUME DESIGN TEACHER Unavailable Claudette Ansari MD Unavailable Jacquie, Davidson Mcgill BELT AND LINK ASSEMBLY SUPERVISOR Unavailable [phone] Allergies Active Allergy Reactions Criticality Noted [...] A DAY FOR DRY EYES 08/10/2022 Active valsartan (DIOVAN) 320 mg tablet Take [...] needed for Constipation. 25 Tablet 04/09/2023 Active lidocaine-priloca ine (EMLA) 2.5-2.5 % creamIndications: Non-small cell cancer of left lung (HC) Apply 5 g topically to affected area(s) each time if needed (Prior to port access). Apply quarter size amount to port 30-40 minutes prior to port access. 30 g 2 05/02/2023 Active gabapentin (NEURONTIN) 300 mg capsule Take 1 Capsule (300 mg) by mouth 2 times daily if needed. 05/14/2023 Active QUEtiapine (SEROQUEL) 300 mg tabletIndications :Bipolar I disorder (HC) Take 1 Tablet (300 mg) by mouth at bedtime. 90 Tablet 1 08/06/2023 Active Active Problems Problem Noted Date Diagnosed Date Encounter for screening for other viral diseases 05/07/2023 Non-small cell cancer of left lung 04/15/2023 Primary cancer of left lower lobe of lung 2023 Cancer Staging:Pathologic stage from 04/08/2023:Stage IIIB(pT3, pN2, cM0) - Signed by Mercedez Hobbs PA on 04/11/2023 S/P lobectomy of lung 04/08/2023 Overview (04/08/2023): S/p Flexible Bronchoscopy, Robotic Bronchoscopy with Biopsy, EBUS with Biopsy, Left VATS, Left Upper Lobectomy and Thoracic Lymphadenectomy with Dr. Beto Rinaldi 04/08/2023 Bipolar I disorder 09/08/2021 Anxiety 09/08/2021 Severe obesity (BMI 35.0-39.9) with comorbidity 10/18/2019 Kidney stone 06/23/2018 CKD (chronic kidney disease) stage 3, GFR 30-59 ml/min 05/03/2018 Overview (05/03/2018): Baseline about 1.0 Elevated lipase 05/03/2018 Right Ureteral stone with hydronephrosis 019 Overview (05/02/2018): H/o 9mm right kidney stone s/p lithotripsy 2016 6mm right w/ hydro Controlled type 2 diabetes with neuropathy 05/02 Aortic stenosis, moderate-severe 05/02/2018 Overview (05/02/2018): Follows w/ Dr. 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, egd & capsul negative; saw hematology - given IV iron infusions over ~1.5 years then transitioned to oral iron Resolved Problems Problem Noted Date Diagnosed Date Resolved Date Severe depression 05/02/2018 09/08/2021 Overview (05/02/2018): S/p ECT Encounters Date Type Department Care Team Description 11/12/2023 Telephone [facility] [address] [facility] [place] [address] Eddie Clarke, [place] 10/16/2023 1:45 PM CDT [facility] [address] [place] [address] Liset Welch, COSTUME DESIGN TEACHER Follow Up (Non-small cell cancer of left lung (HC)//) 10/16/2023 Travel 10/10/2023 1:25 PM CDT - 10/10/2023 11:59 PM CDT Hospital Encounter [facility] [address] [place] [address] Claudette Ansari MD Non-small cell cancer of left lung (HC) 10/10/2023 1:15 PM CDT - 10/10/2023 1:24 PM CDT Hospital Encounter [facility] [address] [place] [address] Non-small cell cancer of left lung (HC) 10/10/2023 Travel from Last 3 Months Immunizations Name Administration Dates Next Due COVID-19 vaccine (Moderna 50 mcg/0.5mL) 12YO+ BIVALENT PF, MDV 08/30/2022 COVID-19 vaccine ([employer] 30mcg/0.3mL) P F, MDV 05/14/2020,04/23/2020 Covid-19 Vaccine [...] Tobacco: Former Cigarettes 2 30 1 0 1989 Smokeless Tobacco: Never Tobacco Cessation:Counseling Given: Not Answered Comments:Quit 30 years ago Alcohol Use Standard Drinks/Week Comments Not Currently 0 (1 standard drink = 0.6 oz pur e alcohol) none PHQ-2 Answer Date Recorded PHQ-2 TOTAL SCORE 1 08/28/2023 Social Connections Answer Date Recorded Frequency of [...] Sign Reading Time Taken Comments Blood Pressure 120/56 10/16/2023 1:44 PM CDT Pulse 77 10/16/2023 1:44 PM CDT Temperature 36.8 ??C (98.2 ??F) 10/16/2023 1:44 PM CD T Respiratory Rate 14 10/16/2023 1:44 PM CDT Oxygen Saturation 94% 10/16/2023 1:44 PM CDT Inhaled Oxygen Concentration - - Weight 84.8 kg (186 lb 14.4 oz) 10/16/2023 1:44 PM CDT Height 152.3 cm (4' 11.96) 05/14/2023 10:14 AM MIX MILL TENDER Body Mass Index 36.55 05/14/2023 10:14 AM MIX MILL TENDER Plan of Treatment Upcoming Encounters Date Type Department Care Team (Late st Contact Info) Description 12/16/2023 1:00 PM CDT Office Visit [facility] [address] [place] [address] Irene Burnham, [facility] [address] [place] [address] 01/13/2024 1:15 PM CDT Appointment [facility] [address] [place] [address] 01/13/2024 1:30 PM CDT Appointment [facility] [address] [place] [address] 01/16/2024 1:30 PM CDT Office Visit [facility] [address] [place] [address] Claudette Ansair MD [address] [place] [address] 03/02/2024 1:15 PM MIX MILL TENDER Office Visit [facility] [address] [place] [address] Cori Payne MD [address] [place] [address] Health Maintenance Due Date Last Done Comments Zoster (shingles) series for age 50+ (1 of 2) 1960 RSV vaccine for adults or (1 - 1-dose 60+ series) 2001 DEXA/DXA scan for age 65+ 2006 Medicare Wellness for age 65+ 2006 COVID-19 vaccine series (2022-24 season) 2023 01/18/2023, 08/30/2022, 01/23/2022, Additional history exists Influenza for age 65+ 11/17/2023 01/02/2022 , 12/14/2020, 11/30/2020, Additional history exists BMI (ht and wt on same day) for age 18+ 03/28/2024 03/28/2023, 05/23/2022, 12/15/2020 Depression screening for age 12+ 08/27/2024 08/28/2023, 02/27/2023, 09/03/2022, Additional history exists Tetanus booster 06/08/2028 06/08/2018 Tdap Completed 06/08/2018 Pneumococcal series for age 65+ Completed 02/27/2022, 02/21/2022, 11/17/2019, Additional history exists Medical Devices Implanted Type Area Life Teacher Device Identifier Shelf Expiration Date Model / Serial / Lot Stent Uret [id number] Silhouette - [id number] Implanted:Qty: 1 on 05/03/2018 by Alin Miguel MD at [facility] Right: [employer] Suhas [id number]# / / [id number] Stent Uret [id number] Silhouette - [id number] Implanted:Qty: 1 on 05/03/2018 by Alin Miguel MD at [facility] Right: [employer] Suhas [id number]# / / [id number] Power Port Isp Mri [id number] [id number] - [id number] Implanted:Qty: 1 on 05/07/2023 by Jess Key DO at [facility] Right: Chest [employer] 08/15/2024 [id number] / / [id number] Procedures Procedure Name Priority Date/Time Associated Diagnosis Comments CT CHEST W Routine 10/10/2023 1:51 PM CDT Non-small cell cancer of left lung (HC) CREATININE,ISTAT Routine 10/10/2023 1:48 PM CDT CBC WITH AUTO DIFFERENTIAL Timed 10/10/2023 1:32 PM CDT Non-small cell cancer of left lung (HC) COMP METABOLIC PANEL Today 10/10/2023 1:32 PM CDT Non-small cell cancer of left lung (HC) CBC WITH AUTO DIFFERENTIAL Today 10/10/2023 1:32 PM CDT Non-small cell cancer of left lung (HC) from Last 3 Months Results * CT CHEST W (10/10/2023 1:51 PM CDT) Anatomical Region Laterality Modality CHEST, THORAX, HEART Computed To mography 10/10/2023 3:20 PM CDT Impressions 10/10/2023 3:20 PM CDT 1. Postsurgical change left lower lobe of the lung. 2. No evidence for recurrent or metastatic disease. 3. Micro nodules on the right are unchanged and are of doubtful significance. Please note that all CT scans at this facility use dose modulation, iterative reconstruction, and/or weight-based dosing when appropriate to reduce radiation dose to as low as reasonably achievable. Dictated by Noel Quintanilla MD @ Oct 10 2023 ??3:20PM (Electronically Signed) [email or web address] Narrative 10/10/2023 3:20 PM CDT For Patients: ??As a result of the Century Cures Act, medical imaging exams and procedure reports are released immediately into your electronic medical record. ??You may view this report before your referring provider. ??If you have questions, please contact your health care provider. INDICATION: Non-small cell lung carcinoma. Follow-up. TECHNIQUE: Contrast-enhanced CT of the chest. 100 cc nonionic Omnipaque 300 administered. COMPARISON: July 08, 2023. FINDINGS: Postsurgical change from a left lower lobectomy with stable chronic presumed loculated pleural fluid at the left lung base posteromedially. No thoracic lymphadenopathy. Slight fibrosis subpleural left upper lobe of the lung unchanged. Tiny micronodules along the right minor fissure as well as in the right middle lobe image 87 series 4 and right lower lobe image 51 series 4. These are present in retrospect and are unchanged and are of doubtful significance and can be followed. Slender normal-appearing thyroid gland. Normal caliber thoracic aorta. Transcatheter aortic valve replacement. Mitral annular calcification. Normal adrenal glands. No splenomegaly. No definite hydronephrosis. The included skeleton is negative for acute fractures. No lytic or blastic lesions within the included skeleton. Procedure Note Noel Quintanilla MD - 10/10/2023 For Patients: As a result of the Cures Act, medical imagingexams and procedure reports are released immediately into your electronicmedical record. You may view this report before your referring provider.If you have questions, please contact your health care provider. INDICATION: Non-small cell lung carcinoma. Follow-up. TECHNIQUE: Contrast-enhanced CT of the chest. 100 cc nonionic Omnipaque 300 administered. COMPARISON: July 08, 2023. FINDINGS: Postsurgical change from a left lower lobectomy with stable chronicpresumed loculated pleural fluid at the left lung base posteromedially. No thoracic lymphadenopathy. Slight fibrosis subpleural left upper lobe ofthe lung unchanged. Tiny micronodules along the right minor fissure as well as in the rightmiddle lobe image 87 series 4 and right lower lobe image 51 series 4. These are present in retrospect and are unchanged and are of doubtfulsignificance and can be followed. Slender normal-appearing thyroid gland. Normal caliber thoracic aorta.Transcatheter aortic valve replacement. Mitral annular calcification. Normal adrenal glands. No splenomegaly. No definite hydronephrosis. The included skeleton is negative for acute fractures. No lytic or blasticlesions within the included skeleton. IMPRESSION: 1. Postsurgical change left lower lobe of the lung. 2. No evidence for recurrent or metastatic disease. 3. Micro nodules on the right are unchanged and are of doubtfulsignificance. Please note that all CT scans at this facility use dose modulation,iterative reconstruction, and/or weight-based dosing when appropriate toreduce radiation dose to as low as reasonably achievable. Dictated by Noel Quintanilla MD @ Oct 10 2023 3:20PM (Electronically Signed) [email or web address] Claudette Ansari MD CT * (ABNORMAL) CREATININE,ISTAT (10/10/2023 1:48 PM CDT) CREATININE, POCT 1.40(H) 0.57 - 1.11 mg/dL 10/10/2023 1:51 PM CDT [facility] Comment:Caution: Patients ta flakito Hydroxyurea have falsely increased iStat Creatinine results. Verify creatinine results ordering a Creatinine (56075.2) eGFR 38(L) >90 mL/min/1.7 3m2 10/10/2023 1:51 PM CDT [facility] Comment:As of 2021, eG FR is calculated by the CKD-EPI creatinine equation without race adjustment. eGFR can be influenced by muscle mass, exercise, and diet. The reported eGFR is an estimation only and is only applicable if the renal function is stable. Blood BLOOD SPECIMEN / Unknown 10/10/2023 1:48 PM CDT 10/10/2023 1:51 PM CDT Claudette Ansari MD CHEMISTRY [facility] [address] [place] [id number] * (ABNORMAL) CBC WITH AUTO DIFFERENTIAL (10/10/2023 1:32 PM CDT) WHITE BLOOD COUNT 6.4 4.5 - 11.0 thou/cu mm 10/10/2023 1:40 PM T [facility] RED BLOOD COUNT 4.22 4.00 - 5.20 mil/cu mm 10/10/2023 1:40 PM [facility] HEMOGLOBIN 12.7 12.0 - 16.0 g/dL 10/10/2023 1:40 PM T [facility] HEMATOCRIT 40.3 33.0 - 51.0 % 10/10/2023 1:40 PM [facility] MCV 96 80 - 100 fL 10/10/2023 1:40 PM T [facility] MCH 30.1 26.0 - 34.0 pg 10/10/2023 1:40 PM [facility] MCHC 31.5(L) 32.0 - 36.0 g/dL 10/10/2023 1:40 PM [facility] RDW 14.7 11.5 - 15.5 % 10/10/2023 1:40 PM [facility] PLATELET COUNT 175 140 - 440 thou/cu mm 10/10/2023 1:40 PM [facility] MPV 9.8 6.5 - 11.0 fL 10/10/2023 1:40 PM [facility] % NEUT 70.9 % 10/10/2023 1:40 PM [facility] % LYMPH 19.7 % 10/10/2023 1:40 PM [facility] % MONO 6.4 % 10/10/2023 1:40 PM [facility] % EOS 2.7 % 10/10/2023 1:40 PM [facility] % BASO 0.3 % 10/10/2023 1:40 PM [facility] ABSOLUTE NEUTROPHILS 4.5 1.7 - 7.0 thou/cu mm 10/10/2023 1:40 PM [facility] ABSOLUTE LYMPHOCYTES 1.3 0.9 - 2.9 thou/cu mm 10/10/2023 1:40 PM [facility] ABSOLUTE MONOCYTES 0.4 <0.9 thou/cu mm 10/10/2023 1:40 PM [facility] ABSOLUTE EOSINOPHILS 0.2 <0.5 thou/cu mm 10/10/2023 1:40 PM [facility] ABSOLUTE BASOPHILS 0.0 <0.3 thou/cu mm 10/10/2023 1:40 PM [facility] Blood BLOOD SPECIMEN / Unknown Venipuncture / Unknown 10/10/2023 1:32 PM CDT 10/10/2023 1:32 PM [facility] - 10/10/2023 1:40 PM CDT This procedure was originally ordered at [facility]. This procedure was originally ordered at [facility]. Claudette Ansari MD HEMATOLOGY [facility] [address] [place] [address] * (ABNORMAL) COMP METABOLIC PANEL (10/10/2023 1:32 PM CDT) SODIUM 142 136 - 145 mmol/L 10/10/2023 1:56 PM [facility] POTASSIUM 4.4 3.5 - 5.1 mmol/L 10/10/2023 1:56 PM [facility] CHLORIDE 103 98 - 107 mmol/L 10/10/2023 1:56 PM [facility] CO2,TOTAL 25 22 - 29 mmol/L 10/10/2023 1:56 PM [facility] ANION GAP 14 5 - 18 10/10/2023 1:56 PM [facility] GLUCOSE 242(H) 70 - 99 mg/dL 10/10/2023 1:56 PM [facility] CALCIUM 9.8 8.8 - 10.2 mg/dL 10/10/2023 1:56 PM [facility] BUN 27(H) 8 - 23 mg/dL 10/10/2023 1:56 PM [facility] CREATININE 1.23(H) 0.50 - 0.90 mg/dL 10/10/2023 1:56 PM [facility] BUN/CREAT RATIO 22(H) 10 - 20 1:56 PM [facility] eGFR 44(L) >90 mL/min/1.7 3m2 10/10/2023 1:56 PM [facility] Comment:As of 2021, eG FR is calculated by the CKD-EPI creatinine equation without race adjustment. ??eGFR can be influenced by muscle mass, exercise, and diet. ??The reported eGFR is an estimation only and is only applicable if the renal function is stable. ALBUMIN 4.3 4.0 - 4.9 g/dL 10/10/2023 1:56 PM [facility] PROTEIN,TOTAL 7.1 6.0 - 8.0 g/dL 10/10/2023 1:56 PM CDT [facility] BILIRUBIN,TOTAL 0.3 0.0 - 1.2 mg/dL 10/10/2023 1:56 PM CDT [facility] ALK PHOSPHATASE 104 35 - 104 IU/L 10/10/2023 1:56 PM CDT [facility] ALT (SGPT) 25 10 - 35 IU/L 10/10/2023 1:56 PM CDT [facility] AST (SGOT) 42(H) 10 - 35 IU/L 10/10/2023 1:56 PM CDT [facility] Blood BLOOD SPECIMEN / Unknown Venipuncture / Unknown 10/10/2023 1:32 PM CDT 10/10/2023 1:32 PM CDT Claudette Ansari MD CHEMISTRY [facility] [address] [place] [address] from Last 3 Months Advance Directives * [...] Status Discussion: Per Existing Order Care Teams Kiln Door Builder Relationship Specialty Start Date End Date Andrew Rodríguez MD [address] [place] [address] PCP - General Family Practice 09/08/21 Cori Payne MD [address] [place] [address] Psychiatry 09/08/21 Arabella Diaz RN, BSN [address] [place] [address] Nurse Navigator - Oncology Registered Nurse 03/27/23 Beto Rinaldi MD [address] [place] [address] Surgery - Cardiothoracic 03/28/23 [facility] [place] [address] [place] [address] 04/10/23 Samina Hay RN [address] [place] [address] Nurse Navigator - Oncology Registered Nurse 04/15/23 Liset Welch, COSTUME DESIGN TEACHER [address] [place] [address] Nurse Practitioner Hematology and Oncology 04/29/23 Claudette Ansari MD [address] [place] [address] Medical Oncologist Hematology and Oncology 04/29/23 Jacquie, HAKAN Fu [address] [place] [address] Plywood And Veneer Repairer 04/29/23
--- OUTSIDE RECORDS SUMMARY | 2023-12-14 18:23 | XMS_ITS | Data Portability ---
Author Organization [facility], [facility] Address [address] [place] [address] Care Team Providers Care Clinical Nutrition Manager Name Role Phone SAL RODRIGUES Primary Care Provider [phone] Assessment Encounter Date Assessment Date Assessment LastModified by Organization Details LastModified Time 11/30/2021 11/30/2021 81 year old female with history of kidney stones and kidney disease. Patient more so had questions regarding her kidney disease. I explained that her primary care should refer her to a yeast fermentation attendant if necessary. I encouraged her to speak [...] recorded. Lab urinalysis , dipstick 2021 022 [facility], [address], [address], [place], [address], 13:05:21 Referral None recorded. Procedures None recorded. Surgeries None recorded. Imaging None recorded. Medication Orders None recorded. Patient TargetsNo targets recorded. Patient InstructionsNo instructions recorded. Reason for Referral None Reported. Results Created Date Observation Date Name Description Value Unit Range Abnormal Flag Note LastModifiedBy Organization Detail LastModifiedTime 12/01/19 22 11/30/2021 UA DIP CS ADVAN TUS color -advantus Yellow yellow Not Available [facility] [address], [place], [address], 11/30/2021 13:05:21 12/01/19 22 11/30/2021 UA DIP CS ADVAN TUS appearance -advantus Sl Cloudy clear abnormal Not Available [facility] [address] [place] [address] [address], [place], [address], 11/30/2021 13:05:21 12/01/19 22 11/30/2021 UA DIP CS ADVAN TUS glucose -advantus 500 mg/dL negati ve abnormal Not Available [facility] [address] [place] [address], [place], [address], 11/30/2021 13:05:21 12/01/19 22 11/30/2021 UA DIP CS ADVAN TUS bilirubin -advantus Negati ve negati ve Not Available [facility] [address] [place] [address] [address], [place], [address], 11/30/2021 13:05:21 12/01/19 22 11/30/2021 UA DIP CS ADVAN TUS ketones -advantus Negati ve mg/dL negati ve Not Available [facility] [address] [place] [address] [address], [place], [address], 11/30/2021 13:05:21 12/01/19 22 11/30/2021 UA DIP CS ADVAN TUS sp. gravity -advantus 1.020 1.010- 1.025 Not Available [facility] [address] [place] [address] [address], [place], [address], 11/30/2021 13:05:21 12/01/19 22 11/30/2021 UA DIP CS ADVAN TUS pH -advantus 6.0 5.0-8. 0 Not Available [facility] [address] [place] [address] [address], [place], [address], 11/30/2021 13:05:21 09/15/20 22 11/30/2021 UA DIP CS ADVAN TUS protein -advantus Negati ve mg/dL negati ve Not Available [facility] [address], [place], [address], 11/30/2021 13:05:21 12/01/19 22 11/30/2021 UA DIP CS ADVAN TUS urobilinogen -advantus 0.2 normal Not Available [facility] [address] [place] [address] [address], [place], [address], 11/30/2021 13:05:21 12/01/19 22 11/30/2021 UA DIP CS ADVAN TUS nitrites -advantus Negati ve negati ve Not Available [facility] [address] [place] [address] [address], [place], [address], 11/30/2021 13:05:21 12/01/19 22 11/30/2021 UA DIP CS ADVAN TUS blood -advantus Negati ve negati ve Not Available [facility] [address] [place] [address] [address], [place], [address], 11/30/2021 13:05:21 12/01/19 22 11/30/2021 UA DIP CS ADVAN TUS leukocytes -advantus Modera te negati ve abnormal Not Available [facility] [address] [place] [address] [address], [place], [address], 11/30/2021 13:05:21 12/01/19 22 11/30/2021 UA DIP CS ADVAN TUS performed by Jeana Wasserman Not Available [facility] [address] [place] [address] [address], [place], [address], 11/30/2021 13:05:21 12/01/19 22 11/30/2021 UA DIP CS ADVAN TUS total urine volume (mL) 10 /mL ----- ----- ----- ----- ----- ----- ----- ----- ----- ----- ----- ----- ----- ----- ---- *Rohith zuluaga note the follo wing minim um quant ities for addit ional urine testi ng: - Atypi cals: 3 mL - Cytol ogy: 20 mL - GC/CH : 2 mL - FISH: 30 mL - Atypi cals w/ GC/CH : 5 mL - Cytol ogy PLUS FISH: 50 mL - Urine Cultu re: 3 mL ----- ----- ----- ----- ----- ----- ----- ----- ----- ----- ----- ----- ----- ----- ---- Not Available [facility] [address] [place] [address], [place], [address], 11/30/2021 13:05:21 12/01/19 22 11/30/2021 UA MICRO SCOPI C U-WBC 10 - 25 [hpf] 0 - 2 abnormal Not Available [facility] [address] [place] [address], [place], [address], 11/30/2021 13:05:27 12/01/19 22 11/30/2021 UA MICRO SCOPI C U-RBC 0 - 2 [hpf] 0 - 2 Not Available [facility] [address] [place] [address], [place], [address], 11/30/2021 13:05:27 12/01/19 22 11/30/2021 UA MICRO SCOPI C bacteria Modera te [hpf] negati ve abnormal Not Available [facility] [address] [place] [address], [place], [address], 11/30/2021 13:05:27 12/01/19 22 11/30/2021 UA MICRO SCOPI C squamous epi Modera te /lpf negati ve,sma ll abnormal Not Available [facility] [address], [place], [address], 11/30/2021 13:05:27 12/01/19 22 11/30/2021 URINE CULTU RE final report Microb iology result s SOURC E Void KNOWN ALLER GIES na TREAT MENT na MEDIA PLATE D AT: Media plate d on 2021 @ 3:17 PM COLON Y COUNT >100, 000 cfu/m l RESUL T Mixed Growt h,Mul tiple Gram Posit carissa Morph ologi c Types ,No Furth er Scooby p Not Available [facility] [address], [place], [address], 12/02/2021 10:00:13 11/02/19 22 06/07/2021 CT, abdom en + pelvi s, w/ contr ast No observ ation record ed. Not Available 2021 13:49:20 Result Notes None recorded. Procedures Surgical History Date Name Laterality Status Provider Name and Address Organization Details Recorded Time 09/30/19 22 Occult blood feces completed Not Available Health [...] Name and Address Organization Details Recorded Time 601867 Medicinal product containin g penicilli n and acting as antibacte rial agent (product) medicatio n hives Not available Not available 11/04/2021 52883 05 SNOMED swell ing and hives Not [...] Address Organization Details Last Updated DateTime 11/30/2021 05811.18 g 152.4 cm Yazmin Rodriguez [facility] 11/30/2021 11:15:56 Date Recorded Body mass [...] o Information not available 11/30/2021 Preferred Language Uzbek Information not available 11/30/2021 Number Of Pregnancies [...] Nicotine? No Information not available 11/30/2021 Sex: Unknown Functional Status None recorded. Mental Status None recorded. Family History Relationship Description Onset Age of this Age Resolved Age Notes LastModified by Organization Details LastModified Time Unspecified Relation Family history of diabetes mellitus [id number] Not available 2021 14:41:20 Father Family history of cardiac disorder [place] [id number] Not available 2021 14:41:20 Mother Family history of malignant neoplasm [id number] Not available 2021 14:41:20 Medical History Condition Response Sexually Transmitted Infection N Diabetes Y Other N Bleeding Disorder N High Blood Pressure Y Kidney Stones Y High Cholesterol Y GERD/Acid Reflux N Heart Disease Y Cancer N Lung Disease N Depression Y Gynecological History Statement/Question Response If Post [...] Encounter Closed Date Diagnosis/Indication Diagnosis SNOMED-CT Code Diagnosis ICD10 Code [id number] NILS [facility]Valentino dbury [address] [address] 11/30/2021 10:56:09 11/30/2021 12:06:56 History of calculus of kidney 731921054 Z87.442 Health Concerns Section Related Observation LastModified by Organization Detai ls LastModified Time None Recorded Concern Status LastModified by Organization Details LastModified Time None Recorded Advance Directives Directive None Recorded Payers Encounter Date Sequence Insurance Name Policy Number Policy Osorio Covered Member ID Osorio Member ID Guarantor Name 11/30/2021 1 UCARE - DOS ON OR AFTER 19 (MEDICARE REPLACEMENT/ ADVANTAGE - HMO) [id number] Annabella Longoria [id number] Annabella Longoria Notes Date Note Type Note Provider Name and Address Organization Details Recorded Time 11/30/2021 text/html HPI Notes: This is a 81 year old female with history of kidney stones here for follow up. She reports recent diagnosis of stage 3 kidney disease. She has a history of kidney stones (s/p ESWL in [place] - 2015), Right ureteroscopy with laser lithotripsy, stone removal [...] children, all vaginal deliveries. Monse Slaughter PA-C [address] [place] [address],[address], [place], [address], [facility] 11/30/2021 14:53:43 OBGyn Episode No OBEpisode recorded.
== END 2023-12-14 18:30 | disposition home or self-care (01) ==
LOC: ED 18:21
PROVIDERS: Emergency Provider Emergency Medicine Emergency Medical Services; PCP Family Medicine
DX: S90.812A Abrasion, left foot, initial encounter (principal)
CPT/HCPCS: 99282; 99283; 99284

== ENCOUNTER 2024-01-31 08:46 | Outpatient (CLI) | payer OTHER, SELFPAY ==
--- OUTSIDE RECORDS SUMMARY | 2024-01-31 08:48 | XMS_ITS | Clinical Summary ---
Author Organization [facility] Address [address] [place] [address] Care Team Providers Care Property Maintenance Supervisor Name Role Phone Unavailable Primary Care Provider Unavailabl e Source Comments Patient records contain information from all sites at [facility]. For routine questions regarding patient records, call [phone] during business hours, M-F 8:00 AM - 5:00 PM Central Time. Record requests for emergency care only can be directed to [phone] at any time.[facility] Allergies Active Allergy Reactions Criticality Noted Date Comments Penicillins Angioedema (Reselect Reaction),Hives (Reselect Reaction) High 04/02/2018 Medications allopurinoL (ZYLOPRIM) 100 mg tablet Take 200 mg by mouth daily. Active ALPRAZolam (XANAX) 0.5 mg tablet Take 1 tablet by mouth as needed. 8 Active ARIPiprazole (ABILIFY) 5 mg tablet Take 5 mg by mouth daily. 0 Active atorvastatin (LIPITOR) 40 mg tablet Take 1 tablet by mouth daily. 9 Active cholecalciferol , vitamin D3, 1,000 Unit tablet Take 1,000 Units by mouth daily. Active DULoxetine (CYMBALTA) [address] capsule Take 20 mg by mouth daily. 0 Active DULoxetine (CYMBALTA) [address] capsule Take 60 mg by mouth daily. 0 Active polysaccharide iron complex (Ferrex 150) 150 mg iron capsule Take 1 capsule by mouth. 8 Active levothyroxine (SYNTHROID, LEVOTHROID) 137 mcg tablet Take 137 mcg by mouth. 8 Active metFORMIN (GLUCOPHAGE) 500 mg tablet Take 500 mg by mouth 2 (two) times a day. 9 Active multivitamin-mi nerals-lutein (CENTURY MATURE) tablet Take 1 tablet by mouth daily. Active potassium citrate (UROCIT-K) 10 mEq (1,080 mg) ER tablet Take 10 mEq by mouth 2 (two) times a day. 0 Active aspirin 325 mg tablet Take 325 [...] mg tablet Take 1,000 mg by mouth. 7 Active amiodarone (PACERONE) 200 mg tablet 200mg 1/day 2 Active amLODIPine (NORVASC) 5 mg tablet Take 5 mg by mouth daily. 3 Active loperamide (IMODIUM A-D) 2 mg capsule Take 4mg by mouth with 1st loose stool, then 2mg with each subsequent loose stool. Max 16 mg in 24 hrs 2 Active nystatin (MYCOSTATIN) 100,000 unit/gram cream Apply topically at bedtime. 3 Active Active Problems Problem Noted Date Diagnosed [...] Recorded Dental: Regular Dentist Unknown 05/17/19 21 Comments Unknown Sex and Gender Information Value Date Recorded Sex Assigned at Not on file Legal Sex Female 9:48 AM DISH ROOM WORKER Gender Identity Not on file Sexual Orientation Not on file Last Filed Vital Signs Vital Sign Reading Time Taken Comments Blood Pressure 135/44 04/29/2023 9:23 AM DISH ROOM WORKER Pulse 76 04/29/2023 9:23 AM DISH ROOM WORKER Temperature 36.1 ??C (97 ??F) 04/29/2023 9:23 AM DISH ROOM WORKER Respiratory Rate - - Oxygen Saturation - - Inhaled Oxygen Concentration - - Weight 83.1 kg (183 lb 3.2 oz) 04/29/2023 9:23 A M [employer]ISH ROOM WORKER Height - - Body Mass Index [...] on patient's age to complete this topic IPV Vaccines Aged Out No longer eligi ble based on patient's age to complete this topic Medical Devices Implanted Type Area Sole Sewer Hand Device Identifier Shelf Expiration Date Model / Serial / Lot Stent Other Stent Other Heart Insurance [facility]
--- OUTSIDE RECORDS SUMMARY | 2024-01-31 08:49 | XMS_ITS | Clinical Summary ---
Author Organization [employer] [facility] Address [place], [place] [address] Care Team Providers Care Job Coach/Job Developer Name Role Phone Andrew Rodríguez MD Primary Care Provider + Cori Payne MD Unavailable Arabella Diaz RN, BSN Unavailable Beto Rinaldi MD Unavailable [phone] [facility], [place] [facility]available [facility] Un[facility] Liset Welch DOLL EYE SETTER Unavailable Claudette Ansari MD Unavailable Jacquie, Davidson Mcgill HOT AIR FURNACE INSTALLER AND REPAIRER Unavailable [phone] Allergies Active Allergy Reactions Criticality Noted [...] Encounters Date Type Department Care Team Description 01/16/2024 1:30 PM CDT Office Visit [facility] [address] [place] [address] Claudette Ansari MD Follow Up 01/16/2024 Travel 01/13/2024 1:14 PM CDT - 01/13/2024 11:59 PM CDT Hospital Encounter [facility] [address] [place] [address] Liset Welch, VINNY Non-small cell cancer of left lung (HC) 01/13/2024 1:13 PM CDT Hospital Encounter [facility] [address] [place] [address] Non-small cell cancer of left lung (HC) 01/13/2024 Travel 01/02/2024 2:30 PM CDT Office Visit [facility] [address] [place] [address] Eddie Clarke AuD Hearing Problem 01/02/2024 Travel 12/30/2023 1:15 PM CDT Office Visit [facility] [address] [place] [address] Yi Bauer DO Ear Problem (Wax build up - x2 weeks using debrox drops ) 12/30/2023 Travel 12/16/2023 1:00 PM CDT Office Visit [facility] [address] [place] [address] Irene Burnham AuD Hearing Problem (Hearing test) 12/16/2023 Travel 11/12/2023 Telephone [facility] [address] [place] [address] Eddie Clarke AuD from Last 3 Months Immunizations Name Administration Dates Next Due COVID-19 vaccine (Moderna 50 mcg/0.5mL) 12YO+ BIVALENT PF, MDV 08/30/2022 COVID-19 vaccine (Pfizer-BioNTech 30mcg/0.3mL) P F, [...] Former Cigarettes 2 30 1 960 - 1989 Smokeless Tobacco: Never Tobacco Cessation:Counseling Given: Yes Comments:Quit 30 years ago Alcohol Use Standard Drinks/Week Comments Not Currently 0 (1 standard drink = 0.6 oz pur e alcohol) none PHQ-2 Answer Date Recorded PHQ-2 TOTAL SCORE 1 08/28/2023 Social Connections Answer Date Recorded Do you often feel lonely or isolated from those around you? 0 04/08/2023 Alcohol Use Answer Date Recorded [...] file 04/08/2023 Food Insecurity Answer Date Recorded Do you worry your food will run out before you are able to buy more? 1 04/08/2023 Transportation Needs Answer Date Record ed Does lack of transportation keep you from medica l appointments? 1 04/08/2023 Does lack of transportation keep you from work, meetings or getting things that you need? 1 04/08/2023 Housing Stability Answer Date Recorded What is your housing situation today? 1 04/08/2023 Sex and Gender Information Value Date Recorded Sex Assigned at Not on file Gender Identity Not on file Sexual Orientation Not on file Obstetrics History Last Filed Vital Signs Vital Sign Reading Time Taken Comments Blood Pressure 118/57 01/16/2024 1:19 PM CDT Pulse 72 01/16/2024 1:19 PM CDT Temperature 36.5 ??C (97.7 ??F) 01/16/2024 1:19 PM CD T Respiratory Rate 18 01/16/2024 1:19 PM CDT Oxygen Saturation 96% 01/16/2024 1:19 PM CDT Inhaled Oxygen Concentration - - Weight 85.1 kg (187 lb 9.6 oz) 01/16/2024 1:19 P M CDT Height 152.3 cm (4' 11.96) 05/14/2023 10:14 AM REGIONAL WILDLIFE AGENT Body Mass Index 36.69 05/14/2023 10:14 AM REGIONAL WILDLIFE AGENT Plan of Treatment Upcoming Encounters Date Type Department Care Team (Late st Contact Info) Description 01/31/2024 9:00 AM REGIONAL WILDLIFE AGENT Ancillary Procedure [facility] [address] [place] [address] 02/06/2024 1:00 PM REGIONAL WILDLIFE AGENT Office Visit [facility] [address] [place] [address] Reece Brito MD [address] [place] [address] 03/02/2024 1:15 PM REGIONAL WILDLIFE AGENT Office Visit [facility] [address] [place] [address] Cori Payne MD [address] [place] [address] 04/13/2024 1:15 PM REGIONAL WILDLIFE AGENT Appointment [facility] [address] [place] [address] 04/13/2024 1:30 PM REGIONAL WILDLIFE AGENT Appointment [facility] [address] [facility] [place] [address] 04/15/2024 1:15 PM REGIONAL WILDLIFE AGENT Office Visit [facility] [address] [facility] [place] [phone] Liset Welch, DOLL EYE SETTER [address] [facility] [place] [address] Health Maintenance Due Date Last Done Comments Zoster (shingles) series for age 50+ (1 of 2) 1960 DEXA/DXA scan for age 65+ 2006 Medicare Wellness for age 65+ 2006 RSV vaccine for adults or (1 - 1-dose 75+ series) 2016 Influenza for age 65+ 11/17/2023 01/02/2022 , 12/14/2020, 11/30/2020, Additional history exists COVID-19 vaccine series ( season) 2024 12/16/2023, 01/18/2023, 08/30/2022, Additional history exists BMI (ht and wt on same day) for age 18+ 03/28/2024 03/28/2023, 05/23/2022, 12/15/2020 Depression screening for age 12+ 08/27/2024 08/28/2023, 02/27/2023, 09/03/2022, Additional history exists Tetanus booster 06/08/2028 06/08/2018 Tdap Completed 06/08/2018 Pneumococcal series for age 65+ Completed 02/27/2022, 02/21/2022, 11/17/2019, Additional history exists Medical Devices Implanted Type Area Supervisor Smoke Control Device Identifier Shelf Expiration Date Model / Serial / Lot Stent Uret [id number] Silhouette - [id number] Implanted:Qty: 1 on 05/03/2018 by Alin Miguel MD at [facility] Right: [employer] Ushas B3836# / / [id number] Stent Uret [id number] Silhouette - [id number] Implanted:Qty: 1 on 05/03/2018 by Alin Miguel MD at [facility] Right: [employer] Suhas [id number]# / / [id number] Power Port Isp Mri 6fr [id number] - [id number] Implanted:Qty: 1 on 05/07/2023 by Jess Key DO at [facility] Right: Chest [employer] 08/15/2024 [id number] / / [id number] Procedures Procedure Name Priority Date/Time Associated Diagnosis Comments CBC WITH AUTO DIFFERENTIAL Timed 01/13/2024 1:57 PM CDT Non-small cell cancer of left lung (HC) COMP METABOLIC PANEL Today 01/13/2024 1:57 PM CDT Non-small cell cancer of left lung (HC) CBC WITH AUTO DIFFERENTIAL Today 01/13/2024 1:57 PM CDT Non-small cell cancer of left lung (HC) CREATININE,ISTAT Routine 01/13/2024 1:[address] CHEST W Routine 01/13/2024 1:33 PM CDT Non-small cell cancer of left lung (HC) from Last 3 Months Results * (ABNORMAL) CBC WITH AUTO DIFFERENTIAL (01/13/2024 1:57 PM CDT) WHITE BLOOD COUNT 5.0 4.5 - 11.0 thou/cu mm 01/13/2024 2:01 PM T [facility] RED BLOOD COUNT 3.89(L) 4.00 - 5.20 mil/cu mm 01/13/2024 2:01 PM [facility] HEMOGLOBIN 12.0 12.0 - 16.0 g/dL 01/13/2024 2:01 PM [facility] HEMATOCRIT 37.0 33.0 - 51.0 % 01/13/2024 2:01 PM [facility] MCV 95 80 - 100 fL 01/13/2024 2:01 PM [facility] MCH 30.8 26.0 - 34.0 pg 01/13/2024 2:01 PM [facility] MCHC 32.4 32.0 - 36.0 g/dL 01/13/2024 2:01 PM [facility] RDW 14.2 11.5 - 15.5 % 01/13/2024 2:01 PM [facility] PLATELET COUNT 145 140 - 440 thou/cu mm 01/13/2024 2:01 PM [facility] MPV 10.3 6.5 - 11.0 fL 01/13/2024 2:01 PM [facility] % NEUT 69.6 % 01/13/2024 2:01 PM [facility] % LYMPH 19.2 % 01/13/2024 2:01 PM [facility] % MONO 7.4 % 01/13/2024 2:01 PM [facility] % EOS 3.2 % 01/13/2024 2:01 PM [facility] % BASO 0.6 % 01/13/2024 2:01 PM [facility] ABSOLUTE NEUTROPHILS 3.5 1.7 - 7.0 thou/cu mm 01/13/2024 2:01 PM [facility] ABSOLUTE LYMPHOCYTES 1.0 0.9 - 2.9 thou/cu mm 01/13/2024 2:01 PM [facility] ABSOLUTE MONOCYTES 0.4 <0.9 thou/cu mm 01/13/2024 2:01 PM [facility] ABSOLUTE EOSINOPHILS 0.2 <0.5 thou/cu mm 01/13/2024 2:01 PM [facility] ABSOLUTE BASOPHILS 0.0 <0.3 thou/cu mm 01/13/2024 2:01 PM [facility] Blood BLOOD SPECIMEN / Unknown Butterfly / Unknown 01/13/2024 1:57 PM CDT 01/13/2024 1:57 PM CDT Narrative [facility] - 01/13/2024 2:01 PM CDT This procedure was originally ordered at [facility]. This procedure was originally ordered at [facility]. Liset Welch NP HEMATOLOGY [facility] [address] [place] [address] * (ABNORMAL) COMP METABOLIC PANEL (01/13/2024 1:57 PM CDT) SODIUM 141 136 - 145 mmol/L 01/13/2024 2:33 PM [facility] POTASSIUM 3.9 3.5 - 5.1 mmol/L 01/13/2024 2:33 PM [facility] CHLORIDE 105 98 - 107 mmol/L 01/13/2024 2:33 PM [facility] CO2,TOTAL 24 22 - 29 mmol/L 01/13/2024 2:33 PM [facility] ANION GAP 12 5 - 18 01/13/2024 2:33 PM [facility] GLUCOSE 229(H) 70 - 99 mg/dL 01/13/2024 2:33 PM [facility] CALCIUM 9.3 8.8 - 10.2 mg/dL 01/13/2024 2:33 PM [facility] BUN 22 8 - 23 mg/dL 01/13/2024 2:33 PM [facility] CREATININE 1.19(H) 0.50 - 0.90 mg/dL 01/13/2024 2:33 PM [facility] BUN/CREAT RATIO 18 10 - 20 2:33 PM [facility] eGFR 46(L) >90 mL/min/1.7 3m2 01/13/2024 2:33 PM [facility] Comment:As of 2021, eG FR is calculated by the CKD-EPI creatinine equation without race adjustment. ??eGFR can be influenced by muscle mass, exercise, and diet. ??The reported eGFR is an estimation only and is only applicable if the renal function is stable. ALBUMIN 3.8(L) 4.0 - 4.9 g/dL 01/13/2024 2:33 PM CDT [facility] PROTEIN,TOTAL 6.5 6.0 - 8.0 g/dL 01/13/2024 2:33 PM CDT [facility] BILIRUBIN,TOTAL 0.2 0.0 - 1.2 mg/dL 01/13/2024 2:33 PM CDT [facility] ALK PHOSPHATASE 94 35 - 104 IU/L 01/13/2024 2:33 PM T [facility] ALT (SGPT) 24 10 - 35 IU/L 01/13/2024 2:33 PM CDT [facility] AST (SGOT) 39(H) 10 - 35 IU/L 01/13/2024 2:33 PM CDT [facility] Blood BLOOD SPECIMEN / Unknown Butterfly / Unknown 01/13/2024 1:57 PM CDT 01/13/2024 1:57 PM CDT Liset Welch NP CHEMISTRY [facility] [address] [place] [address] * (ABNORMAL) CREATININE,ISTAT (01/13/2024 1:36 PM CDT) CREATININE, POCT 1.30(H) 0.57 - 1.11 mg/dL 01/13/2024 1:38 PM CDT [facility] Comment:Caution: Patients ta flakito Hydroxyurea have falsely increased iStat Creatinine results. Verify creatinine results ordering a Creatinine (43765.2) eGFR 41(L) >90 mL/min/1.7 3m2 01/13/2024 1:38 PM CDT [facility] Comment:As of 2021, eG FR is calculated by the CKD-EPI creatinine equation without race adjustment. eGFR can be influenced by muscle mass, exercise, and diet. The reported eGFR is an estimation only and is only applicable if the renal function is stable. Blood BLOOD SPECIMEN / Unknown 01/13/2024 1:36 PM CDT 01/13/2024 1:38 PM CDT Liset Saira Yuri DOLL EYE SETTER CHEMISTRY [facility] [address] [place] [address] * CT CHEST W (01/13/2024 1:33 PM CDT) Anatomical Region Laterality Modality CHEST, THORAX, HEART Computed To mography 01/13/2024 6:18 PM CDT Impressions 01/13/2024 6:18 PM CDT 1. No lymphadenopathy in the chest. No significant change compared to the prior exam. 2. Stable small pulmonary nodules. 3. Postsurgical changes in the left lower lung and small left pleural effusion. Please note that all CT scans at this facility use dose modulation, iterative reconstruction, and/or weight-based dosing when appropriate to reduce radiation dose to as low as reasonably achievable. Dictated by Naeem Lopez MD @ 01/13/2024 6:18:56 PM (Electronically Signed) Narrative 01/13/2024 6:18 PM CDT For Patients: ??As a result of the Century Cures Act, medical imaging exams and procedure reports are released immediately into your electronic medical record. ??You may view this report before your referring provider. ??If you have questions, please contact your health care provider. INDICATION: [id number] lung cancer. Technique CT images of the chest following intravenous contrast. Comparison CT chest 10/10/2023. FINDINGS: Postsurgical changes of left lower lobectomy with stable small left pleural effusion. Stable mild scarring in the lateral left upper lobe. Stable solid nodules along the right minor fissure measuring 4 mm (series 3 image 59, 60). Stable 6 mm ground- glass nodule right lower lobe measuring 6 mm (series 3 image 90). No new or enlarging pulmonary nodules. Stable calcified granuloma right lung base. The heart size is normal. No pericardial effusion. Prosthetic aortic valve. No mediastinal or hilar lymphadenopathy. Diffuse thyroid atrophy. Limited images through the upper abdomen are unremarkable. Mild thoracic spondylosis. No aggressive osseous lesions. Procedure Note Naeem Lopez MD - 01/13/2024 For Patients: As a result of the 21st Century Cures Act, medical imagingexams and procedure reports are released immediately into your electronicmedical record. You may view this report before your referring provider.If you have questions, please contact your health care provider. INDICATION: Dii-mmzko-lebu lung cancer. Technique CT images of the chest following intravenous contrast. Comparison CT chest 10/10/2023. FINDINGS: Postsurgical changes of left lower lobectomy with stable small leftpleural effusion. Stable mild scarring in the lateral left upper lobe.Stable solid nodules along the right minor fissure measuring 4 mm (series3 image 59, 60). Stable 6 mm ground- glass nodule right lower lobemeasuring 6 mm (series 3 image 90). No new or enlarging pulmonary nodules.Stable calcified granuloma right lung base. The heart size is normal. No pericardial effusion. Prosthetic aorticvalve. No mediastinal or hilar lymphadenopathy. Diffuse thyroid atrophy. Limited images through the upper abdomen areunremarkable. Mild thoracic spondylosis. No aggressive osseous lesions. IMPRESSION: 1. No lymphadenopathy in the chest. No significant change compared to theprior exam. 2. Stable small pulmonary nodules. 3. Postsurgical changes in the left lower lung and small left pleuraleffusion. Please note that all CT scans at this facility use dose modulation,iterative reconstruction, and/or weight-based dosing when appropriate toreduce radiation dose to as low as reasonably achievable. Dictated by Naeem Lopez MD @ 01/13/2024 6:18:56 PM (Electronically Signed) Liset Welch NP CT from Last 3 Months Advance Directives * [...] Status Discussion: Per Existing Order Care Teams Job Coach/Job Developer Relationship Specialty Start Date End Date Andrew Rodríguez MD [address] [place] [address] PCP - General Family Practice 09/08/21 Cori Payne MD [address] [place] [id number] Psychiatry 09/08/21 Arabella Diaz, RN, BSN [address] [place] [address] [phone] Nurse Navigator - Oncology Registered Nurse 03/27/23 Beto Rinaldi MD [address] [place] [phone] Surgery - Cardiothoracic 03/28/23 [facility] [place] [address] [facility] [place] [address] 04/10/23 Samina Hay, RN [address] [place] [address] Nurse Navigator - Oncology Registered Nurse 04/15/23 Liset Welch, DOLL EYE SETTER [address] [place] [address] Nurse Practitioner Hematology and Oncology 04/29/23 Claudette Ansari MD [address] [place] [address] Medical Oncologist Hematology and Oncology 04/29/23 Jacquie, HAKAN Fu [address] [place] [address] Barrel Rifler 04/29/23
--- OUTSIDE RECORDS SUMMARY | 2024-01-31 08:49 | XMS_ITS | Data Portability ---
Author Organization [facility], [facility] Address [address] [place] [address] Care Team Providers Care Equal Opportunity Officer Name Role Phone SAL RODRIGUES Primary Care Provider [phone] Assessment Encounter Date Assessment Date Assessment LastModified by Organization Details LastModified Time 11/30/2021 11/30/2021 81 year old female with history of kidney stones and kidney disease. Patient more so had questions regarding her kidney disease. I explained that her primary care should refer her to a police inspector if necessary. I encouraged her to speak [...] recorded. Lab urinalysis , dipstick [address] [facility], [address], [address], [place], [address], 13:05:21 Referral None recorded. Procedures None recorded. Surgeries None recorded. Imaging None recorded. Medication Orders None recorded. Patient TargetsNo targets recorded. Patient InstructionsNo instructions recorded. Reason for Referral None Reported. Results Created Date Observation Date Name Description Value Unit Range Abnormal Flag Note LastModifiedBy Organization Detail LastModifiedTime 12/01/19 22 11/30/2021 UA DIP CS ADVAN TUS color -advantus Yellow yellow Not Available [facility] [address] [facility] [address], [place], [address], 11/30/2021 13:05:21 12/01/19 22 11/30/2021 UA DIP CS ADVAN TUS appearance -advantus Sl Cloudy clear abnormal Not Available [facility] [address] [place] [address] [address], [place], [address], 11/30/2021 13:05:21 12/01/19 22 11/30/2021 UA DIP CS ADVAN TUS glucose -advantus 500 mg/dL negati ve abnormal Not Available [facility] [address] [place] [address], [place], [address], 11/30/2021 13:05:21 12/01/19 22 11/30/2021 UA DIP CS ADVAN TUS bilirubin -advantus Negati ve negati ve Not Available [facility] [address] [place] [address] [address], [place], [address], 11/30/2021 13:05:21 12/01/19 22 11/30/2021 UA DIP CS ADVAN TUS ketones -advantus Negati ve mg/dL negati ve Not Available [facility] [address] [place] [address] [address], [place], [address], 11/30/2021 13:05:21 12/01/19 22 11/30/2021 UA DIP CS ADVAN TUS sp. gravity -advantus 1.020 1.010- 1.025 Not Available [facility] [address] [place] [address] [address], [place], [address], 11/30/2021 13:05:21 12/01/19 22 11/30/2021 UA DIP CS ADVAN TUS pH -advantus 6.0 5.0-8. 0 Not Available [facility] [address] [place] [address] [address], [place], [address], 11/30/2021 13:05:21 09/15/20 22 11/30/2021 UA DIP CS ADVAN TUS protein -advantus Negati ve mg/dL negati ve Not Available [facility] [address] [facility] [address], [place], [address], 11/30/2021 13:05:21 12/01/19 22 11/30/2021 UA DIP CS ADVAN TUS urobilinogen -advantus 0.2 normal Not Available [facility] [address] [place] [address] [address], [place], [address], 11/30/2021 13:05:21 12/01/19 22 11/30/2021 UA DIP CS ADVAN TUS nitrites -advantus Negati ve negati ve Not Available [facility] [address] [place] [address] [address], [place], [address], 11/30/2021 13:05:21 12/01/19 22 11/30/2021 UA DIP CS ADVAN TUS blood -advantus Negati ve negati ve Not Available [facility] [address] [place] [address] [address], [place], [address], 11/30/2021 13:05:21 12/01/19 22 11/30/2021 UA DIP CS ADVAN TUS leukocytes -advantus Modera te negati ve abnormal Not Available [facility] [address] [place] [address] [address], [place], [address], 11/30/2021 13:05:21 12/01/19 22 11/30/2021 UA DIP CS ADVAN TUS performed by Jeana Wasserman Not Available [facility] [address] [place] [address] [address], [place], [address], 11/30/2021 13:05:21 12/01/19 22 11/30/2021 UA DIP [...] ----- ----- ----- ----- ---- Not Available [facility] [address] [place] [address], [place], [address], 11/30/2021 13:05:21 12/01/19 22 11/30/2021 UA MICRO SCOPI C U-WBC 10 - 25 [hpf] 0 - 2 abnormal Not Available [facility] [address] [place] [address], [place], [address], 11/30/2021 13:05:27 12/01/19 22 11/30/2021 UA MICRO SCOPI C U-RBC 0 - 2 [hpf] 0 - 2 Not Available [facility] [address] [place] [address], [place], [address], 11/30/2021 13:05:27 12/01/19 22 11/30/2021 UA MICRO SCOPI C bacteria Modera te [hpf] negati ve abnormal Not Available [facility] [address] [place] [address], [place], [address], 11/30/2021 13:05:27 12/01/19 22 11/30/2021 UA MICRO SCOPI C squamous epi Modera te /lpf negati ve,sma ll abnormal Not Available [facility] [address], [place], [address], 11/30/2021 13:05:27 12/01/19 22 11/30/2021 URINE CULTU RE final report Microb iology result s SOURC E Void KNOWN ALLER GIES na TREAT MENT na MEDIA PLATE D AT: Media plate d on 2021 @ 3:17 PM COLON Y COUNT >100, 000 cfu/m l RESUL T Mixed Growt h,Mul tiple Gram Posit carissa Morph ologi c Types ,No Furth er Scooby p Not Available [facility] [address], [place], [address], 12/02/2021 10:00:13 11/02/19 22 06/07/2021 CT, abdom [...] Name and Address Organization Details Recorded Time 624329 Medicinal product containin g penicilli n and acting as antibacte rial agent (product) medicatio n hives Not available Not available 11/04/2021 53412 05 SNOMED swell ing and hives Not [...] Address Organization Details Last Updated DateTime 11/30/2021 73394.18 g 152.4 cm Yazmin Rodriguez [facility] 11/30/2021 11:15:56 Date Recorded Body mass [...] o Information not available 11/30/2021 Preferred Language Iranian Information not available 11/30/2021 Number Of Pregnancies [...] Unspecified Relation Family history of diabetes mellitus [id number] Not available 2021 14:41:20 Father Family history of cardiac disorder [place] [address] Not available 2021 14:41:20 Mother Family history of malignant neoplasm [id number] Not available 2021 14:41:20 Medical History Condition Response Sexually Transmitted Infection N Diabetes Y Bleeding Disorder N Other N High Blood Pressure Y Kidney [...] Diagnosis/Indication Diagnosis SNOMED-CT Code Diagnosis ICD10 Code 102803 NILS [facility]Valent[facility] [address] [address] 11/30/2021 10:56:09 11/30/2021 12:06:56 History of calculus of kidney 079337330 Z87.442 Health Concerns Section Related Observation LastModified by Organization Detai ls LastModified Time None Recorded Concern Status LastModified by Organization Details LastModified Time None Recorded Advance Directives Directive None Recorded Payers Encounter Date Sequence Insurance Name Policy Number Policy Osorio Covered Member ID Osorio Member ID Guarantor Name 11/30/2021 1 [employer] - DOS ON OR AFTER 19 (MEDICARE REPLACEMENT/ ADVANTAGE - HMO) [id number] Annabella Longoria [id number] Annabella Longoria Notes Date Note Type Note Provider Name and Address Organization Details Recorded Time 11/30/2021 text/html This is a 81 yea r old female with history of kidney stones here for follow up.She reports recent diagnosis of stage 3 kidney disease.She has a history of kidney stones (s/p [place] in [place] - 2015), Right ureteroscopy with laser lithotripsy, stone removal on 05/03/18.Stone - 80% Uric acid and 20% Calcium oxalate monohydrate. 24 Hr Urine (05/23/18) - low UO (1.37 L) - low Citrate (113 mg) - low pH (5.0)- normal - Calcium (77 mg) - Oxalate [...] children, all vaginal deliveries. Monse Slaughter PA-C [address] [place] [address],[address], [place], [address], [facility] 11/30/2021 14:53:43 OBGyn Episode No OBEpisode recorded.
--- OUTSIDE RECORDS SUMMARY | 2024-01-31 08:49 | XMS_ITS | Referral Summary ---
Author Organization [facility] Address [address] [place] [address] Care Team Providers Care Diecast Machine Operator Name Role Phone Unavailable Primary Care Provider Unavailabl e Source Comments Patient records contain information from all sites at [facility]. For routine questions regarding patient records, call [phone] during business hours, M-F 8:00 AM - 5:00 PM Central Time. Record requests for emergency care only can be directed to [phone] at any time.[facility] [...] on file Legal Sex Female 9:48 AM JEWELRY INSPECTOR Gender Identity Not on file Sexual Orientation Not on file Last Filed Vital Signs Vital Sign Reading Time Taken Comments Blood Pressure 135/44 04/29/2023 9:23 AM JEWELRY INSPECTOR Pulse 76 04/29/2023 9:23 AM JEWELRY INSPECTOR Temperature 36.1 ??C (97 ??F) 04/29/2023 9:23 AM JEWELRY INSPECTOR Respiratory Rate - - Oxygen Saturation - - Inhaled Oxygen Concentration - - Weight 83.1 kg (183 lb 3.2 oz) 04/29/2023 9:23 A M JEWELRY INSPECTOR Height - - Body Mass Index - - Plan of Treatment Not on file Medical Devices Implanted Type Area Loom Inspector Device Identifier Shelf Expiration Date Model / Serial / Lot Stent Other Stent Other Heart Insurance [facility]
--- OUTSIDE RECORDS SUMMARY | 2024-01-31 08:49 | XMS_ITS ---
Author Organization [facility] Address [address] [place] [address] Care Team Providers Care Senior Rd Engineer Name Role Phone Unavailable Unavailable Unavailable Surgery Details Not on file Complications Check Surgery Details section. Procedure Estimated Blood Loss Check Surgery Details section. Procedure Findings Check Surgery Details section. Procedure Specimens Taken Check Surgery Details section.
== END 2024-01-31 08:47 | disposition home or self-care (01) ==
LOC: RAD 08:46
PROVIDERS: PCP Family Medicine; Visit Provider Internal Medicine
DX: I48.91 Unspecified atrial fibrillation (principal); I34.0 Nonrheumatic mitral (valve) insufficiency
CPT/HCPCS: 93306

== ENCOUNTER 2024-02-06 13:42 | Outpatient (CLI) | payer OTHER, SELFPAY ==
--- OUTSIDE RECORDS SUMMARY | 2024-02-06 13:45 | XMS_ITS | Clinical Summary ---
Author Organization [facility] Address [address] [place] [address] Care Team Providers Care Torpedo Shooter Name Role Phone Unavailable Primary Care Provider Unavailabl e Source Comments Patient records contain information from all sites at [facility]. For routine questions regarding patient records, call [phone] during business hours, M-F 8:00 AM - 5:00 PM Central Time. Record requests for emergency care only can be directed to [phone] at any time.[facility] Allergies Active Allergy Reactions Criticality [...] on file Legal Sex Female 9:48 AM GLOBAL DIRECTOR AIR AND CLIMATE CHANGE Gender Identity Not on file Sexual Orientation Not on file Last Filed Vital Signs Vital Sign Reading Time Taken Comments Blood Pressure 135/44 04/29/2023 9:23 AM GLOBAL DIRECTOR AIR AND CLIMATE CHANGE Pulse 76 04/29/2023 9:23 AM GLOBAL DIRECTOR AIR AND CLIMATE CHANGE Temperature 36.1 C (97 F) 04/29/2023 9:23 AM GLOBAL DIRECTOR AIR AND CLIMATE CHANGE Respiratory Rate - - Oxygen Saturation - - Inhaled Oxygen Concentration - - Weight 83.1 kg (183 lb 3.2 oz) 04/29/2023 9:23 A M GLOBAL DIRECTOR AIR AND CLIMATE CHANGE Height - - Body Mass Index - [...] this topic Medical Devices Implanted Type Area Parking Enforcement Specialist Device Identifier Shelf Expiration Date Model / Serial / Lot Stent Other Stent Other Heart Insurance [facility]
--- OUTSIDE RECORDS SUMMARY | 2024-02-06 13:45 | XMS_ITS ---
Author Organization [facility] Address [address] [place] [address] Care Team Providers Care Figurine Maker Name Role Phone Unavailable Unavailable Unavailable Surgery Details Not on file Complications Check Surgery Details section. Procedure Estimated Blood Loss Check Surgery Details section. Procedure Findings Check Surgery Details section. Procedure Specimens Taken Check Surgery Details section.
--- OUTSIDE RECORDS SUMMARY | 2024-02-06 13:45 | XMS_ITS | Referral Summary ---
Author Organization [facility] Address [address] [place] [address] Care Team Providers Care Education Professional Name Role Phone Unavailable Primary Care Provider Unavailabl e Source Comments Patient records contain information from all sites at [facility]. For routine questions regarding patient records, call [phone] during business hours, M-F 8:00 AM - 5:00 PM Central Time. Record requests for emergency care only can be directed to [phone] at any time.[facility] Allergies Active Allergy Reactions Criticality Noted Date [...] on file Legal Sex Female 9:48 AM GEOPHYSICIST Gender Identity Not on file Sexual Orientation Not on file Last Filed Vital Signs Vital Sign Reading Time Taken Comments Blood Pressure 135/44 04/29/2023 9:23 AM GEOPHYSICIST Pulse 76 04/29/2023 9:23 AM GEOPHYSICIST Temperature 36.1 C (97 F) 04/29/2023 9:23 AM GEOPHYSICIST Respiratory Rate - - Oxygen Saturation - - Inhaled Oxygen Concentration - - Weight 83.1 kg (183 lb 3.2 oz) 04/29/2023 9:23 A M GEOPHYSICIST Height - - Body Mass Index - - Plan of Treatment Not on file Medical Devices Implanted Type Area Power Hair Clipper Device Identifier Shelf Expiration Date Model / Serial / Lot Stent Other Stent Other Heart Insurance [facility]
--- OUTSIDE RECORDS SUMMARY | 2024-02-06 13:45 | XMS_ITS | Clinical Summary ---
Author Organization [facility] Address [place], [place] [address] Care Team Providers Care Rehabilitation Team Lead Name Role Phone Andrew Rodríguez MD Primary Care Provider + Cori Payne MD Unavailable [phone] Arabella Diaz RN, BSN Unavailable [phone] Beto Rinaldi MD Unavailable [phone] [facility] Care, [place] Unavailable [facility] Un[facility] Liset Welch NITRILES LAB TECHNICIAN Unavailable Claudette Ansari MD Unavailable Jacquie, Davidson Mcgill SUPERVISOR [employer] Unavailable [phone] Allergies Active Allergy Reactions Criticality Noted [...] Encounters Date Type Department Care Team Description 02/06/2024 1:00 PM TIME CLOCK REPAIRER Office Visit [facility] [address] [place] [address] Reece Brito MD Arrived 01/31/2024 9:00 AM TIME CLOCK REPAIRER Ancillary Procedure [facility] [address] [place] [address] 01/31/2024 Travel 01/16/2024 1:30 PM CDT Office Visit [facility] [address] [place] [address] Claudette Ansari MD Follow Up 01/16/2024 Travel 01/13/2024 1:14 PM CDT - 01/13/2024 11:59 PM CDT Hospital Encounter [facility] [address] [place] [address] Liset Welch, NITRILES LAB TECHNICIAN Non-small cell cancer of left lung (HC) 01/13/2024 1:13 PM CDT Hospital Encounter [address] [address] Non-small cell cancer of left lung (HC) 01/13/2024 Travel 01/02/2024 2:30 PM CDT Office Visit [facility] [address] [place] [address] Eddie Clarke AuD Hearing Problem 01/02/2024 Travel 12/30/2023 1:15 PM CDT Office Visit [facility] [address] [place] [address] Yi Bauer DO Ear Problem (Wax build up - x2 weeks using debrox drops ) 12/30/2023 Travel 12/16/2023 1:00 PM CDT Office Visit [facility] [address] [place] [address] Irene Burnham, Ko Hearing Problem (Hearing test) 12/16/2023 Travel 11/12/2023 Telephone [facility] [address] [facility] [address] Eddie Clarke, AuD from Last 3 Months Immunizations Name [...] 72 01/16/2024 1:19 PM CDT Temperature 36.5 C (97.7 F) 01/16/2024 1:19 PM CDT Respiratory Rate 18 01/16/2024 1:19 PM CDT Oxygen Saturation 96% 01/16/2024 1:19 PM CDT Inhaled Oxygen Concentration - - Weight 85.1 kg (187 lb 9.6 oz) 01/16/2024 1:19 P M CDT Height 152.3 cm (4' 11.96) 05/14/2023 10:14 AM TIME CLOCK REPAIRER Body Mass Index 36.69 05/14/2023 10:14 AM TIME CLOCK REPAIRER Plan of Treatment Upcoming Encounters Date Type Department Care Team (Late st Contact Info) Description 03/02/2024 1:15 PM TIME CLOCK REPAIRER Office Visit [facility] [address] [place] [address] Cori Payne MD [address] [place] [address] 04/13/2024 1:15 PM TIME CLOCK REPAIRER [facility] [address] 04/13/2024 1:30 PM TIME CLOCK REPAIRER Appointment [facility] [address] [address] 04/15/2024 1:15 PM TIME CLOCK REPAIRER Office Visit [facility] [address] [address] Liset Welch, NITRILES LAB TECHNICIAN [address] [facility] [place] [address] Health Maintenance Due Date Last Done Comments Zoster (shingles) series for age 50+ (1 of 2) 1960 DEXA/DXA scan for age 65+ 2006 Medicare Wellness for age 65+ 2006 RSV vaccine for adults or (1 - 1-dose 75+ series) 2016 Influenza for age 65+ 11/17/2023 01/02/2022 , 12/14/2020, 11/30/2020, Additional history exists COVID-19 vaccine series () 02/10/2024 12/16/2023, 01/18/2023, 08/30/2022, Additional history exists BMI (ht and wt on same day) for age 18+ 03/28/2024 03/28/2023, 05/23/2022, 12/15/2020 Depression screening for age 12+ 08/27/2024 08/28/2023, 02/27/2023, 09/03/2022, Additional history exists Tetanus booster 06/08/2028 06/08/2018 Tdap Completed 06/08/2018 Pneumococcal series for age 65+ Completed 02/27/2022, 02/21/2022, 11/17/2019, Additional history exists Medical Devices Implanted Type Area Ship Runner Device Identifier Shelf Expiration Date Model / Serial / Lot Stent Uret [id number] Silhouette - [id number] Implanted:Qty: 1 on 05/03/2018 by Alin Miguel MD at [facility] Right: [employer] Alerts [id number]# / / [id number] Stent Uret [id number] Silhouette - [id number] Implanted:Qty: 1 on 05/03/2018 by Alin Miguel MD at [facility] Right: [employer] Alerts [id number]# / / [id number] Power Port Isp Mri 6fr [id number] - [id number] Implanted:Qty: 1 on 05/07/2023 by Jess Key DO at [facility] Right: Chest [employer] 08/15/2024 [id number] / / [id number] Procedures Procedure Name Priority Date/Time Associated Diagnosis Comments ECHO TTE COMPLETE WO CONTRAST Routine 01/31/2024 9:41 AM TIME CLOCK REPAIRER Atrial fibrillation, unspecified type (HC) CBC WITH AUTO DIFFERENTIAL Timed 01/13/2024 1:57 [...] (HC) from Last 3 Months Results * ECHO TTE COMPLETE WO CONTRAST (01/31/2024 9:41 AM TIME CLOCK REPAIRER) AORTIC VALVE MEAN PG 12 mmHg EJECTION FRACTION 62 % PEAK TR VELOCITY 2.9 m/s LVEDD 3.8 cm EJECTION FRACTION 60 - 65% Anatomical Region Laterality Modality Ultrasound 01/31/2024 9:09 AM TIME CLOCK REPAIRER Narrative 01/31/2024 10:04 AM TIME CLOCK REPAIRER ECHOCARDIOGRAM JOZEF THOMPSON : 1940 83 years Study Date: 01/31/2024 9:09:37 AM Gender: F BP: 118/57 mmHg Height: 150.00 cm BSA: 1.79 m Weight: 85.00 kg Tech: SHERITA Referring MD: ZAYRA AYALA Site: [facility] Reading Location: Mobile OP Patient Location: Outpatient. Procedure: 2D, Color Doppler and Spectral Doppler. Indication for study: Atrial fibrillation, unspecified type Cardiac Rhythm: Regular.Study quality: Good. Final Impressions: 1. Normal LV size, normal wall thickness, normal global systolic function with an estimated EF of 60 - 65%. 2. The aortic valve is Sendy 3 Ultra bioprosthesis AVR, no stenosis and no regurgitation. The aortic valve peak velocity is 2.5 m/s, the peak gradient is 24 mmHg, and the mean gradient is 12 mmHg. The aortic valve area is 1.25 cm with a dimensionless index of 0.40. The stroke volume index is 31.5 ml/m . 3. The mitral valve is MV Mean PG 2mmHg with moderate MAC, trace mitral regurgitation. 4. SInce the echo from 06/08, the mean gradient has decreased from 18 to 12 mmHg and the RVSP has improved from 51 to 34 mmHg + a normal RAP. Chamber Sizes and Function Normal left ventricular size, normal wall thickness, normal global systolic function with an estimated EF of 60 - 65%. No resting regional wall motion abnormality visualized. Left atrial size is normal. Left atrial pressure is normal. Right ventricular cavity size is normal, global systolic RV function is normal. RV wall thickness is normal. The right atrium is normal. The pulmonary artery is of normal size and origin. The sinus of Valsalva is normal sized. The ascending aorta is normal sized. Valves, RV Pressures and Diastolic Function The aortic valve is Sendy 3 Ultra bioprosthesis replacement, no stenosis and no regurgitation. The mitral valve is MV Mean PG 2mmHg, trace mitral regurgitation. Moderate mitral annular calcification is present. Indeterminate pattern of LV diastolic filling. The tricuspid valve is normal in structure. Tricuspid regurgitation is trace regurgitation. The tricuspid regurgitant velocity is 2.9 m/s, the estimated right ventricular systolic pressure is 34 mmHg plus right atrial pressure. The pulmonic valve is normal. Trace pulmonary regurgitation. Masses, Effusion, Shunts There is no pericardial effusion. The inferior vena cava is normal sized, respiratory size variation greater than 50%. No left to right shunting was detected by limited color flow Doppler interrogation of the interatrial septum. MEASUREMENTS AND CALCULATIONS 2-D Measurements and LV Function: LVID (d) 3.8 cm LV FS% (2D) 26 % LVID (s) 2.8 cm LVOT diameter 2.0 cm IVS (d) 1.1 cm HR 78 bpm LVPW (d) 1.1 cm LA Vol index 31 ml/m2 Asc Ao 3.0 cm RV Max 4C (d) 4.0 cm LA 4.3 cm Diastology: Mitral Tissue Doppler E Peak 0.8 m/s e', Septum 0.06 m/s A Peak 0.4 m/s e', Lateral 0.06 m/s E/A 2.0 E/e' Average 13.89 DT 213 msec Aortic Valve: Vmax 2.5 m/s CHEO (V) 1.45 cm VTI 0.45 m CHEO (I) 1.25 cm LVOT V max 1.2 m/s Max PG 24 mmHg LVOT VTI 0.18 m Mean PG 12 mmHg SV 57 ml Dim Index 0.40 SV index 32 ml/m CO 4.4 l/min CI 2.5 l/min/m Mitral Valve: MVA 3.6 cm MV P 1/2 62 msec MV Mean G 2 mmHg MV VTI 0.28 m Tricuspid Valve and estimated PA pressures: TR Vmax 2.9 m/s TAPSE 2.0 cm TR maxG 34 mmHg Pulmonic Valve: PV AT 54 msec . This study was interpreted by an IAC accredited facility. CC: [facility] ([facility]) [facility]. Final Procedure Note Noel Josue MD - 01/31/2024 ECHOCARDIOGRAM JOZEF THOMPSON : 1940 83 years Study Date: 01/31/2024 9:09:37 AM Gender: F BP: 118/57 mmHg Height: 150.00 cm BSA: 1.79 m Weight: 85.00 kg Tech: MSR Referring MD: ZAYRA AYALA Site: [facility] Reading Location: Mobile OP Patient Location: Outpatient. Procedure: 2D, Color Doppler and Spectral Doppler. Indication for study: Atrial fibrillation, unspecified type Cardiac Rhythm: Regular.Study quality: Good. Final Impressions: 1. Normal LV size, normal wall thickness, normal global systolic functionwith an estimated EF of 60 - 65%. 2. The aortic valve is Sendy 3 Ultra bioprosthesis AVR, no stenosis andno regurgitation. The aortic valve peak velocity is 2.5 m/s, the peakgradient is 24 mmHg, and the mean gradient is 12 mmHg. The aortic valvearea is 1.25 cm with a dimensionless index of 0.40. The stroke volumeindex is 31.5 ml/m . 3. The mitral valve is MV Mean PG 2mmHg with moderate MAC, trace mitralregurgitation. 4. SInce the echo from 06/08, the mean gradient has decreased from 18 to12 mmHg and the RVSP has improved from 51 to 34 mmHg + a normal RAP. Chamber Sizes and Function Normal left ventricular size, normal wall thickness, normal globalsystolic function with an estimated EF of 60 - 65%. No resting regionalwall motion abnormality visualized. Left atrial size is normal. Leftatrial pressure is normal. Right ventricular cavity size is normal, globalsystolic RV function is normal. RV wall thickness is normal. The rightatrium is normal. The pulmonary artery is of normal size and origin. Thesinus of Valsalva is normal sized. The ascending aorta is normal sized. Valves, RV Pressures and Diastolic Function The aortic valve is Sendy 3 Ultra bioprosthesis replacement, no stenosisand no regurgitation. The mitral valve is MV Mean PG 2mmHg, trace mitralregurgitation. Moderate mitral annular calcification is present.Indeterminate pattern of LV diastolic filling. The tricuspid valve isnormal in structure. Tricuspid regurgitation is trace regurgitation. Thetricuspid regurgitant velocity is 2.9 m/s, the estimated right ventricularsystolic pressure is 34 mmHg plus right atrial pressure. The pulmonicvalve is normal. Trace pulmonary regurgitation. Masses, Effusion, Shunts There is no pericardial effusion. The inferior vena cava is normal sized,respiratory size variation greater than 50%. No left to right shunting wasdetected by limited color flow Doppler interrogation of the interatrialseptum. MEASUREMENTS AND CALCULATIONS 2-D Measurements and LV Function: LVID (d) 3.8 cm LV FS% (2D) 26 % LVID (s) 2.8 cm LVOT diameter 2.0 cm IVS (d) 1.1 cm HR 78 bpm LVPW (d) 1.1 cm LA Vol index 31 ml/m2 Asc Ao 3.0 cm RV Max 4C (d) 4.0 cm LA 4.3 cm Diastology: Mitral Tissue Doppler E Peak 0.8 m/s e', Septum 0.06 m/s A Peak 0.4 m/s e', Lateral 0.06 m/s E/A 2.0 E/e' Average 13.89 DT 213 msec Aortic Valve: Vmax 2.5 m/s CHEO (V) 1.45 cm VTI 0.45 m CHEO (I) 1.25 cm LVOT V max 1.2 m/s Max PG 24 mmHg LVOT VTI 0.18 m Mean PG 12 mmHg SV 57 ml Dim Index 0.40 SV index 32 ml/m CO 4.4 l/min CI 2.5 l/min/m Mitral Valve: MVA 3.6 cm MV P 1/2 62 msec MV Mean G 2 mmHg MV VTI 0.28 m Tricuspid Valve and estimated PA pressures: TR Vmax 2.9 m/s TAPSE 2.0 cm TR maxG 34 mmHg Pulmonic Valve: PV AT 54 msec . This study was interpreted by an IAC accredited facility. CC: [facility] ([facility]) [facility]. Final Zayra Ayala MD ECHO ORD * (ABNORMAL) CBC WITH AUTO DIFFERENTIAL (01/13/2024 1:57 PM T) WHITE BLOOD COUNT 5.0 4.5 - 11.0 thou/cu mm 01/13/2024 2:01 PM [facility] RED BLOOD COUNT 3.89(L) 4.00 - 5.20 mil/cu mm 01/13/2024 2:01 PM [facility] HEMOGLOBIN 12.0 12.0 - 16.0 g/dL 01/13/2024 2:01 PM [facility] HEMATOCRIT 37.0 33.0 - 51.0 % 01/13/2024 2:01 PM [facility] MCV 95 80 - 100 fL 01/13/2024 2:01 PM [facility] MCH 30.8 26.0 - 34.0 pg 01/13/2024 2:01 PM [facility] MCHC 32.4 32.0 - 36.0 g/dL 01/13/2024 2:01 PM [facility] RDW 14.2 11.5 - 15.5 % 01/13/2024 2:01 PM [facility] PLATELET COUNT 145 140 - 440 thou/cu mm 01/13/2024 2:01 PM [facility] MPV 10.3 6.5 - 11.0 fL 01/13/2024 2:01 PM [facility] % NEUT 69.6 % 01/13/2024 2:01 PM [facility] % LYMPH 19.2 % 01/13/2024 2:01 PM [facility] % MONO 7.4 % 01/13/2024 2:01 PM [facility] % EOS 3.2 % 01/13/2024 2:01 PM [facility] % BASO 0.6 % 01/13/2024 2:01 PM [facility] ABSOLUTE NEUTROPHILS 3.5 1.7 - 7.0 thou/cu mm 01/13/2024 2:01 PM [facility] ABSOLUTE LYMPHOCYTES 1.0 0.9 - 2.9 thou/cu mm 01/13/2024 2:01 PM [facility] ABSOLUTE MONOCYTES 0.4 <0.9 thou/cu mm 01/13/2024 2:01 PM [facility] ABSOLUTE EOSINOPHILS 0.2 <0.5 thou/cu mm 01/13/2024 2:01 PM [facility] ABSOLUTE BASOPHILS 0.0 <0.3 thou/cu mm 01/13/2024 2:01 PM [facility] Blood BLOOD SPECIMEN / Unknown Butterfly / Unknown 01/13/2024 1:57 PM CDT 01/13/2024 1:57 PM [facility] - 01/13/2024 2:01 PM CDT This procedure was originally ordered at [facility]. This procedure was originally ordered at [facility]. Liset Welch NP HEMATOLOGY [facility] [address] [place] [address] * (ABNORMAL) COMP METABOLIC PANEL (01/13/2024 1:57 PM CDT) SODIUM 141 136 - 145 mmol/L 01/13/2024 2:33 PM [facility] POTASSIUM 3.9 3.5 - 5.1 mmol/L 01/13/2024 2:33 PM [facility] CHLORIDE 105 98 - 107 mmol/L 01/13/2024 2:33 PM [facility] CO2,TOTAL 24 22 - 29 mmol/L 01/13/2024 2:33 PM [facility] ANION GAP 12 5 - 18 01/13/2024 2:33 PM [facility] GLUCOSE 229(H) 70 - 99 mg/dL 01/13/2024 2:33 PM [facility] CALCIUM 9.3 8.8 - 10.2 mg/dL 01/13/2024 2:33 PM [facility] BUN 22 8 - 23 mg/dL 01/13/2024 2:33 PM [facility] CREATININE 1.19(H) 0.50 - 0.90 mg/dL 01/13/2024 2:33 PM [facility] BUN/CREAT RATIO 18 10 - 20 2:33 PM [facility] eGFR 46(L) >90 mL/min/1.7 3m2 01/13/2024 2:33 PM [facility] Comment:As of 2021, eG FR is calculated by the CKD-EPI creatinine equation without race adjustment. eGFR can be influenced by muscle mass, exercise, and diet. The reported eGFR is an estimation only and is only applicable if the renal function is stable. ALBUMIN 3.8(L) 4.0 - 4.9 g/dL 01/13/2024 2:33 PM CDT [facility] PROTEIN,TOTAL 6.5 6.0 - 8.0 g/dL 01/13/2024 2:33 PM CDT [facility] BILIRUBIN,TOTAL 0.2 0.0 - 1.2 mg/dL 01/13/2024 2:33 PM CDT [facility] ALK PHOSPHATASE 94 35 - 104 IU/L 01/13/2024 2:33 PM CDT [facility] ALT (SGPT) 24 10 - 35 IU/L 01/13/2024 2:33 PM CDT [facility] AST (SGOT) 39(H) 10 - 35 IU/L 01/13/2024 2:33 PM CDT [facility] Blood BLOOD SPECIMEN / Unknown Butterfly / Unknown 01/13/2024 1:57 PM CDT 01/13/2024 1:57 PM CDT Liset Welch NP CHEMISTRY [facility] [address] [place] [address] * (ABNORMAL) CREATININE,ISTAT (01/13/2024 1:36 PM CDT) Pathologist [facility] CREATININE, POCT 1.30(H) 0.57 - 1.11 mg/dL 01/13/2024 1:38 PM CDT [facility] Comment:Caution: Patients ta flakito Hydroxyurea have falsely increased iStat Creatinine results. Verify creatinine results ordering a Creatinine (78574.2) eGFR 41(L) >90 mL/min/1.7 3m2 01/13/2024 1:38 PM CDT [facility] Comment:As of 2021, eG FR is calculated by the CKD-EPI creatinine equation without race adjustment. eGFR can be influenced by muscle mass, exercise, and diet. The reported eGFR is an estimation only and is only applicable if the renal function is stable. Blood BLOOD SPECIMEN / Unknown 01/13/2024 1:36 PM CDT 01/13/2024 1:38 PM CDT Liset Chávez Yancijosse NITRILES LAB TECHNICIAN CHEMISTRY [facility] [address] [place] [address] * CT CHEST W (01/13/2024 1:33 PM [...] Narrative 01/13/2024 6:18 PM CDT For Patients: As a result of the Century Cures Act, medical imaging exams and procedure reports are released immediately into your electronic medical record. You may view this report before your referring provider. If you have questions, please contact your health care provider. INDICATION: [id number] lung cancer. Technique CT images of the [...] please contact your health care provider. INDICATION: [id number] lung cancer. Technique CT images of the [...] Status Discussion: Per Existing Order Care Teams Rehabilitation Team Lead Relationship Specialty Start Date End Date Andrew Rodríguez MD [address] [place] [address] PCP - General Family Practice 09/08/21 Cori Payne MD [address] [place] [id number] Psychiatry 09/08/21 Arabella Diaz, RN, BSN [address] [place] [address] Nurse Navigator - Oncology Registered Nurse 03/27/23 Beto Rinaldi MD [address] [place] [address] Surgery - Cardiothoracic 03/28/23 [facility] [place] [address] [place] [address] 04/10/23 Samina Hay, RN [address] [place] [address] Nurse Navigator - Oncology Registered Nurse 04/15/23 Liset Welch, NITRILES LAB TECHNICIAN [address] [place] [address] Nurse Practitioner Hematology and Oncology 04/29/23 Claudette Ansari MD [address] [place], [place] [id number] Medical Oncologist Hematology and Oncology 04/29/23 Davidson Dhillon LSW [address] [place], [place] [id number] President [employer] 04/29/23
== END 2024-02-06 13:43 | disposition home or self-care (01) ==
PROVIDERS: PCP Family Medicine; Visit Provider Internal Medicine Cardiovascular Disease
DX: D64.9 Anemia, unspecified (principal); I10 Essential (primary) hypertension; E03.9 Hypothyroidism, unspecified; E11.9 Type 2 diabetes mellitus without complications; E11.40 Type 2 diabetes mellitus with diabetic neuropathy, unspecified; M10.9 Gout, unspecified
CPT/HCPCS: 80076; 84443

== ENCOUNTER 2024-02-23 11:46 | Emergency (ER) | payer OTHER, SELFPAY ==
[2024-02-23 11:59] VITALS: BP 115/72; PULSE 83; RESP 16; TEMP 36.6; O2SAT 96; BMI 37.1
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
--- OUTSIDE RECORDS SUMMARY | 2024-02-23 12:38 | XMS_ITS | Clinical Summary ---
Author Organization [facility] Address [address] [place] [address] Care Team Providers Care Physical Therapy Instructor Name Role Phone Unavailable Primary Care Provider Unavailabl e Source Comments Patient records contain information from all sites at [facility]. For routine questions regarding patient records, call [phone] during business hours, M-F 8:00 AM - 5:00 PM Central Time. Record requests for emergency care only can be directed to [phone] at any time.[facility] Allergies Active Allergy Reactions Criticality Noted Date [...] on file Legal Sex Female 9:48 AM RAILROAD CONSTRUCTION DIRECTOR Gender Identity Not on file Sexual Orientation Not on file Last Filed Vital Signs Vital Sign Reading Time Taken Comments Blood Pressure 135/44 04/29/2023 9:23 AM RAILROAD CONSTRUCTION DIRECTOR Pulse 76 04/29/2023 9:23 AM RAILROAD CONSTRUCTION DIRECTOR Temperature 36.1 C (97 F) 04/29/2023 9:23 AM RAILROAD CONSTRUCTION DIRECTOR Respiratory Rate - - Oxygen Saturation - - Inhaled Oxygen Concentration - - Weight 83.1 kg (183 lb 3.2 oz) 04/29/2023 9:23 A M RAILROAD CONSTRUCTION DIRECTOR Height - - Body Mass Index - [...] this topic Medical Devices Implanted Type Area Rn Concurrent Review Device Identifier Shelf Expiration Date Model / Serial / Lot Stent Other Stent Other Heart Insurance [facility]
--- OUTSIDE RECORDS SUMMARY | 2024-02-23 12:38 | XMS_ITS | Clinical Summary ---
Author Organization [employer] [facility] Address [place], [place] [address] Care Team Providers Care Thermoscrew Operator Name Role Phone Andrew Rodríguez MD Primary Care Provider + Cori Payne MD Unavailable Arabella Diaz RN, BSN Unavailable GentryBeto MD Unavailable [phone] [facility], [place] Unavailable [facility] Unavailable Liset Welch NEWSPAPER VENDOR Unavailable Claudette Ansari MD Unavailable Jacquie, Davidson Mcgill CHECKERING MACHINE ADJUSTER Unavailable [phone] Allergies Active Allergy Reactions Criticality Noted Date Comments Penicillins Hives,Angioedema High 04/02/2018 Medications atorvastatin (LIPITOR) 40 mg tablet Take 1 tablet by mouth once daily. 03/26/19 19 Active levothyroxine (SYNTHROID) 137 mcg tablet Take 137 mcg by mouth once daily. 1 02/27/20 18 Active allopurinol (ZYLOPRIM) 100 mg tablet Take 200 mg by mouth once daily. Active loperamide (IMODIUM) 2 mg capsule Take 4mg by mouth with 1st loose stool, then 2mg with each subsequent loose stool. Max 16 mg in 24 hrs 0 06/08/19 22 Active amiodarone (CORDARONE) 200 mg tabletIndicat ions:Atypical atrial flutter (HC) Take 1 Tablet (200 mg) by mouth once daily. 90 Tablet 3 12/20/19 22 Active omeprazole (PRILOSEC) 20 mg Delayed-Relea se capsule TAKE 1 CAP BY MOUTH ONCE DAILY 04/11/19 23 Active Saccharomyces boulardii (FLORASTOR) 250 mg capsule Take 250 mg by mouth once daily. 04/11/19 23 Active Systane Complete 0.6 % ophthalmic solution INSTILL 1 DROP INTO BOTH FOUR TIMES A DAY FOR DRY EYES 08/11/19 23 Active valsartan (DIOVAN) 320 mg tablet Take 320 mg by mouth once daily. 03/06/20 23 Active amLODIPine (NORVASC) 5 mg tablet Take 5 mg by mouth once daily. 03/17/20 23 Active nystatin (MYCOSTATIN) 100,000 unit/gram topical cream Apply topically to affected area(s) at bedtime. 09/29/19 23 Active acetaminophen (TYLENOL EXTRA STRGTH) 500 mg tabletIndicat ions: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 Max acetaminophen dose: 4000mg in 24 hrs. 100 Tablet 4 1:37 PM HOE WORKER 04/09/19 24 Active sennosides-do cusate (SENOKOT S) (8.6-50 mg) tabletIndicat ions: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) Take 1-4 Tablets by mouth 2 times daily if needed for Constipation. 25 Tablet 4 1:37 PM HOE WORKER 04/09/19 24 Active lidocaine-balwinder locaine (EMLA) 2.5-2.5 % creamIndicati ons:Non-small cell cancer of left lung (HC) Apply 5 g topically to affected area(s) each time if needed (Prior to port access). Apply quarter size amount to port 30-40 minutes prior to port access. 30 g 2 05/02/19 24 Active gabapentin (NEURONTIN) 300 mg capsule Take 1 Capsule (300 mg) by mouth 2 times daily if needed. 05/14/19 24 Active QUEtiapine (SEROQUEL) 300 mg tabletIndicat ions:Bipolar I disorder (HC) TAKE 1 TABLET (300 MG) BY MOUTH AT BEDTIME. 90 Tablet 1 02/20/20 Active QUEtiapine (SEROQUEL) 300 mg tabletIndicat ions:Bipolar I disorder (HC) Take 1 Tablet (300 mg) by mouth at bedtime. 90 Tablet 1 08/06/19 24 024 Discontinued Active Problems Problem Noted Date Diagnosed Date [...] Encounters Date Type Department Care Team Description 02/19/2024 Refill [facility] [address] [place] [address] Cori Payne MD Refill Request (Quetiapine) 02/07/2024 Telephone [facility] [address] [facility] [address] [place] [address] Reece Brito MD Results (LFTs and TSH) 02/07/2024 Telephone [facility] [address] [facility] [address] [place] [address] Reece Brito MD Results (labs) 02/06/2024 1:00 PM HOE WORKER Office Visit [facility] [address] [place] [address] Reece Brito MD 02/06/2024 Orders Only [facility] Scanner 1 scan: (1-Ord) [facility], 02/06/2024 02/06/2024 Transcribe Orders [facility] [address] [facility] [address] [place] [address] Reece Brito MD 01/31/2024 9:00 AM HOE WORKER Ancillary Procedure [facility] [address] [place] [address] 01/31/2024 Travel 01/16/2024 1:30 PM CDT Office Visit [facility] [address] [place] [address] Claudette Ansari MD Follow Up 01/16/2024 Travel 01/13/2024 1:14 PM CDT - 01/13/2024 11:59 PM CDT Hospital Encounter [facility] [address] [place] [address] Liset Welch, NEWSPAPER VENDOR Non-small cell cancer of left lung (HC) 01/13/2024 1:13 PM CDT Hospital Encounter [facility] [address] [place] [address] Non-small cell cancer of left lung (HC) 01/13/2024 Travel 01/02/2024 2:30 PM CDT Office Visit [facility] [address] [place] [address] Eddie Clarke AuD Hearing Problem 01/02/2024 Travel 12/30/2023 1:15 PM CDT Office Visit [facility] [address] [place] [address] Yi Bauer DO Ear Problem (Wax build up - x2 weeks using debrox drops ) 12/30/2023 Travel 12/16/2023 1:00 PM CDT Office Visit [facility] [address] [place] [address] Irene Burnham AuD Hearing Problem (Hearing test) 12/16/2023 Travel from Last 3 Months Immunizations Name Administration Dates Next Due COVID-19 vaccine (Moderna 50 mcg/0.5mL) 12YO+ BIVALENT PF, MDV 08/30/2022 COVID-19 vaccine ([employer] 30mcg/0.3mL) P F, MDV 05/14/2020,04/23/2020 Covid-19 Vaccine [...] Smoking Tobacco: Former Cigarettes 2 30 1 - 1989 Smokeless Tobacco: Never Tobacco Cessation:Counseling [...] is your housing situation today? 1 04/08/2023 Comments No Sex and Gender Information Value Date Recorded Sex Assigned at Not on file Legal Sex Female 12:56 PM HOE WORKER Gender Identity Not on file Sexual [...] 152.3 cm (4' 11.96) 05/14/2023 10:14 AM HOE WORKER Body Mass Index 36.69 05/14/2023 10:14 AM HOE WORKER Plan of Treatment Upcoming Encounters Date Type Department Care Team (Late st Contact Info) Description 03/02/2024 1:15 PM HOE WORKER Office Visit [facility] [address] [place] [address] Cori Payne MD [address] [place] [address] 04/13/2024 1:15 PM HOE WORKER Appointment [facility] [address] [place] [address] 04/13/2024 1:30 PM HOE WORKER Appointment [facility] [address] [place] [address] 04/15/2024 1:15 PM HOE WORKER Office Visit [facility] [address] [place] [address] Liset Welch NP [address] [place] [address] Health Maintenance Due Date Last Done Comments [...] history exists Medical Devices Implanted Type Area Focuser Device Identifier Shelf Expiration Date Model / Serial / Lot Stent Uret [id number] Silhouette - [id number] Implanted:Qty: 1 on 05/03/2018 by Alin Miguel MD at [facility] Right: Ureter [employer] Suhas B3836# / / [id number] Stent Uret [id number] Silhouette - [id number] Implanted:Qty: 1 on 05/03/2018 by Alin Miguel MD at [facility] Right: Ureter [employer] Suhas B3836# / / [id number] Power Port Isp Mri 6fr [id number] - [id number] Implanted:Qty: 1 on 05/07/2023 by Jess Key DO at [facility] Right: Chest [employer] 08/15/2024 [id number] / / [id number] Procedures Procedure Name Priority Date/Time Associated Diagnosis Comments SCAN-LABORATORY REPORT 02/06/2024 12:00 AM HOE WORKER ECHO TTE COMPLETE WO CONTRAST Routine 01/31/2024 9:41 AM HOE WORKER Atrial fibrillation, unspecified type (HC) CBC WITH [...] (HC) from Last 3 Months Results * SCAN-LABORATORY REPORT (02/06/2024 12:00 AM HOE WORKER) us Scanner OTHER Final Result * ECHO TTE COMPLETE WO CONTRAST (01/31/2024 9:41 AM HOE WORKER) AORTIC VALVE MEAN PG 12 mmHg EJECTION FRACTION 62 % PEAK TR VELOCITY 2.9 m/s LVEDD 3.8 cm EJECTION FRACTION 60 - 65% Anatomical Region Laterality Modality Ultrasound 01/31/2024 9:09 AM HOE WORKER Narrative 01/31/2024 10:04 AM HOE WORKER ECHOCARDIOGRAM JOZEF THOMPSON : 1940 83 years Study Date: 01/31/2024 9:09:37 AM Gender: F BP: 118/57 mmHg Height: 150.00 cm BSA: 1.79 m Weight: 85.00 kg Tech: SHERITA Referring MD: LYNDON AYALA Site: [facility] Reading Location: Mobile OP [...] interpreted by an IAC accredited facility. CC: [facility] (med [facility]) [facility]. Final Procedure Note Noel Josue MD - 01/31/2024 ECHOCARDIOGRAM JOZEF THOMPSON : 1940 83 years Study Date: 01/31/2024 9:09:37 AM Gender: F BP: 118/57 mmHg Height: 150.00 cm BSA: 1.79 m Weight: 85.00 kg Tech: MSR Referring MD: LYNDON AYALA Site: [facility] Reading Location: Mobile OP [...] interpreted by an IAC accredited facility. CC: [facility] (med records) [facility]. Final [facility] Uriah Ayala MD ECHO ORD Final Result * (ABNORMAL) CBC WITH AUTO DIFFERENTIAL (01/13/2024 1:57 PM CDT) WHITE BLOOD COUNT 5.0 4.5 - 11.0 thou/cu mm 01/13/2024 2:01 PM [facility] RED BLOOD COUNT 3.89(L) 4.00 - 5.20 mil/cu mm 01/13/2024 2:01 PM [facility] HEMOGLOBIN 12.0 12.0 - 16.0 g/dL 01/13/2024 2:01 PM [facility] HEMATOCRIT 37.0 33.0 - 51.0 % 01/13/2024 2:01 PM [facility] MCV 95 80 - 100 fL 01/13/2024 2:01 PM [facility] MCH 30.8 26.0 - 34.0 pg 01/13/2024 2:01 PM [facility] MCHC 32.4 32.0 - 36.0 g/dL 01/13/2024 2:01 PM [facility] RDW 14.2 11.5 - 15.5 % 01/13/2024 2:01 PM [facility] PLATELET COUNT 145 140 - 440 thou/cu mm 01/13/2024 2:01 PM [facility] MPV 10.3 6.5 - 11.0 fL 01/13/2024 2:01 PM [facility] % NEUT 69.6 % 01/13/2024 2:01 PM [facility] % LYMPH 19.2 % 01/13/2024 2:01 PM [facility] % MONO 7.4 % 01/13/2024 2:01 PM [facility] % EOS 3.2 % 01/13/2024 2:01 PM [facility] % BASO 0.6 % 01/13/2024 2:01 PM [facility] ABSOLUTE NEUTROPHILS 3.5 1.7 - 7.0 thou/cu mm 01/13/2024 2:01 PM [facility] ABSOLUTE LYMPHOCYTES 1.0 0.9 - 2.9 thou/cu mm 01/13/2024 2:01 PM [facility] ABSOLUTE MONOCYTES 0.4 <0.9 thou/cu mm 01/13/2024 2:01 PM [facility] ABSOLUTE EOSINOPHILS 0.2 <0.5 thou/cu mm 01/13/2024 2:01 PM [facility] ABSOLUTE BASOPHILS 0.0 <0.3 thou/cu mm 01/13/2024 2:01 PM [facility] Blood BLOOD SPECIMEN / Unknown Butterfly / Unknown 01/13/2024 1:57 PM CDT 01/13/2024 1:57 PM CDT [facility] - 01/13/2024 2:01 PM CDT This procedure was originally ordered at [facility]. This procedure was originally ordered at [facility]. us Liset Welch NP HEMATOLOGY Final Result [facility] [address] [place] [address] * (ABNORMAL) COMP METABOLIC PANEL (01/13/2024 1:57 PM CDT) SODIUM 141 136 - 145 mmol/L 01/13/2024 2:33 PM [facility] POTASSIUM 3.9 3.5 - 5.1 mmol/L 01/13/2024 2:33 PM [facility] CHLORIDE 105 98 - 107 mmol/L 01/13/2024 2:33 PM [facility] CO2,TOTAL 24 22 - 29 mmol/L 01/13/2024 2:33 PM [facility] ANION GAP 12 5 - 18 01/13/2024 2:33 PM [facility] GLUCOSE 229(H) 70 - 99 mg/dL 01/13/2024 2:33 PM [facility] CALCIUM 9.3 8.8 - 10.2 mg/dL 01/13/2024 2:33 PM [facility] BUN 22 8 - 23 mg/dL 01/13/2024 2:33 PM [facility] CREATININE 1.19(H) 0.50 - 0.90 mg/dL 01/13/2024 2:33 PM [facility] BUN/CREAT RATIO 18 10 - 20 2:33 PM [facility] eGFR 46(L) >90 mL/min/1.7 3m2 01/13/2024 2:33 PM [facility] Comment:As of 2021, eG FR is calculated by the CKD-EPI creatinine equation without race adjustment. eGFR can be influenced by muscle mass, exercise, and diet. The reported eGFR is an estimation only and is only applicable if the renal function is stable. ALBUMIN 3.8(L) 4.0 - 4.9 g/dL 01/13/2024 2:33 PM [facility] PROTEIN,TOTAL 6.5 6.0 - 8.0 g/dL 01/13/2024 2:33 PM [facility] BILIRUBIN,TOTAL 0.2 0.0 - 1.2 mg/dL 01/13/2024 2:33 PM [facility] ALK PHOSPHATASE 94 35 - 104 IU/L 01/13/2024 2:33 PM CDT [facility] ALT (SGPT) 24 10 - 35 IU/L 01/13/2024 2:33 PM CDT [facility] AST (SGOT) 39(H) 10 - 35 IU/L 01/13/2024 2:33 PM CDT [facility] Blood BLOOD SPECIMEN / Unknown Butterfly / Unknown 01/13/2024 1:57 PM CDT 01/13/2024 1:57 PM CDT us Liset eWlch NEWSPAPER VENDOR CHEMISTRY Final Result Performing Organization Address [facility]/ZIP Co de Phone Number [facility] [address] [place] [address] * (ABNORMAL) CREATININE,ISTAT (01/13/2024 1:36 PM CDT) CREATININE, POCT 1.30(H) 0.57 - 1.11 mg/dL 01/13/2024 1:38 PM CDT [facility] Comment:Caution: Patients ta flakito Hydroxyurea have falsely increased iStat Creatinine results. Verify creatinine results ordering a Creatinine (66423.2) eGFR 41(L) >90 mL/min/1.7 3m2 01/13/2024 1:38 PM CDT [facility] Comment:As of 2021, eG FR is calculated by the CKD-EPI creatinine equation without race adjustment. eGFR can be influenced by muscle mass, exercise, and diet. The reported eGFR is an estimation only and is only applicable if the renal function is stable. Blood BLOOD SPECIMEN / Unknown 01/13/2024 1:36 PM CDT 01/13/2024 1:38 PM CDT us Liset Welch NEWSPAPER VENDOR CHEMISTRY Final Result Performing Organization Address [facility]/ZIP Co de Phone Number [facility] [address] [place] [address] * CT CHEST W (01/13/2024 1:33 PM [...] please contact your health care provider. INDICATION: [id number] lung cancer. Technique CT images of the [...] please contact your health care provider. INDICATION: [id number] lung cancer. Technique CT images of the [...] PM (Electronically Signed) Liset Welch NP CT Final Result from Last 3 Months Insurance [address] [facility] [place] [address] [facility] MEDICARE PART A HB ONLY [address] [facility] [place]NA [place]INS [id number] HC UCARE MEDICARE PD Advance Directives * Full Code (Latest Code [...] Status Discussion: Per Existing Order Care Teams Thermoscrew Operator Relationship Specialty Start Date End Date Andrew Rodríguez MD [address] [place] [address] PCP - General Family Practice 09/08/21 Cori Payne MD [facility] [place] [address] Psychiatry 09/08/21 Arabella Diaz RN, BSN [address] [place] [address] Nurse Navigator - Oncology Registered Nurse 03/27/23 Beto Rinaldi MD [address] [place] [address] Surgery - Cardiothoracic 03/28/23 [facility] [address] [place] [address] 04/10/23 Samina Hay, CADENCE [address] [place] [address] Nurse Navigator - Oncology Registered Nurse 04/15/23 Liset Welch, NEWSPAPER VENDOR [address] [place] [address] Nurse Practitioner Hematology and Oncology 04/29/23 Claudette Ansari MD [address] [place] [address] Medical Oncologist Hematology and Oncology 04/29/23 Davidson Dhillon LSW [address] [place] [address] Filler Wiper 04/29/23
--- OUTSIDE RECORDS SUMMARY | 2024-02-23 12:38 | XMS_ITS | Data Portability ---
Author Organization [facility] Address [address] [facility] [address] [place] [address] Care Team Providers Care Folder Seamer Name Role Phone SAL RODRIGUES Primary Care Provider [phone] Assessment Encounter Date Assessment Date Assessment LastModified by Organization Details LastModified Time 11/30/2021 11/30/2021 81 year old female with history of kidney stones and kidney disease. Patient more so had questions regarding her kidney disease. I explained that her primary care should refer her to a floor refinisher if necessary. I encouraged her to speak [...] recorded. Lab urinalysis , dipstick 2021 022 [facility], [address], [address], [place], [address], 13:05:21 Referral None recorded. Procedures None recorded. Surgeries None recorded. Imaging None recorded. Medication Orders None recorded. Patient TargetsNo targets recorded. Patient InstructionsNo instructions recorded. Reason for Referral None Reported. Results Created Date Observation Date Name Description Value Unit Range Abnormal Flag Note LastModifiedBy Organization Detail LastModifiedTime 12/01/19 22 11/30/2021 UA DIP CS ADVAN TUS color -advantus Yellow yellow Not Available [facility] [address] [facility] [address], [place], [address], 11/30/2021 13:05:21 12/01/19 22 11/30/2021 UA DIP CS ADVAN TUS appearance -advantus Sl Cloudy clear abnormal Not Available [facility] [address] [place] [address] [address], [place], [address], 11/30/2021 13:05:21 12/01/19 22 11/30/2021 UA DIP CS ADVAN TUS glucose -advantus 500 mg/dL negati ve abnormal Not Available [facility] [address] [place] [address], [place], [address], 11/30/2021 13:05:21 12/01/19 22 11/30/2021 UA DIP CS ADVAN TUS bilirubin -advantus Negati ve negati ve Not Available [facility] [address] [place] [address] [address], [place], [address], 11/30/2021 13:05:21 12/01/19 22 11/30/2021 UA DIP CS ADVAN TUS ketones -advantus Negati ve mg/dL negati ve Not Available [facility] [address] [place] [address] [address], [place], [address], 11/30/2021 13:05:21 12/01/19 22 11/30/2021 UA DIP CS ADVAN TUS sp. gravity -advantus 1.020 1.010- 1.025 Not Available [facility] [address] [place] [address] [address], [place], [address], 11/30/2021 13:05:21 12/01/19 22 11/30/2021 UA DIP CS ADVAN TUS pH -advantus 6.0 5.0-8. 0 Not Available [facility] [address] [place] [address] [address], [place], [address], 11/30/2021 13:05:21 09/15/20 22 11/30/2021 UA DIP CS ADVAN TUS protein -advantus Negati ve mg/dL negati ve Not Available [facility] [address] [facility] [address], [place], [address], 11/30/2021 13:05:21 12/01/19 22 11/30/2021 UA DIP CS ADVAN TUS urobilinogen -advantus 0.2 normal Not Available [facility] [address] [place] [address] [address], [place], [address], 11/30/2021 13:05:21 12/01/19 22 11/30/2021 UA DIP CS ADVAN TUS nitrites -advantus Negati ve negati ve Not Available [facility] [address] [place] [address] [address], [place], [address], 11/30/2021 13:05:21 12/01/19 22 11/30/2021 UA DIP CS ADVAN TUS blood -advantus Negati ve negati ve Not Available [facility] [address] [place] [address] [address], [place], [address], 11/30/2021 13:05:21 12/01/19 22 11/30/2021 UA DIP CS ADVAN TUS leukocytes -advantus Modera te negati ve abnormal Not Available [facility] [address] [place] [address] [address], [place], [address], 11/30/2021 13:05:21 12/01/19 22 11/30/2021 UA DIP CS ADVAN TUS performed by Jeana Wasserman Not Available [facility] [address] [place] [address] [address], [place], [address], 11/30/2021 13:05:21 12/01/19 22 11/30/2021 UA DIP [...] ----- ----- ----- ----- ---- Not Available [facility] [address] [place] [address], [place], [address], 11/30/2021 13:05:21 12/01/19 22 11/30/2021 UA MICRO SCOPI C U-WBC 10 - 25 [hpf] 0 - 2 abnormal Not Available [facility] [address] [place] [address], [place], [address], 11/30/2021 13:05:27 12/01/19 22 11/30/2021 UA MICRO SCOPI C U-RBC 0 - 2 [hpf] 0 - 2 Not Available [facility] [address] [place] [address], [place], [address], 11/30/2021 13:05:27 12/01/19 22 11/30/2021 UA MICRO SCOPI C bacteria Modera te [hpf] negati ve abnormal Not Available [facility] [address] [place] [address], [place], [address], 11/30/2021 13:05:27 12/01/19 22 11/30/2021 UA MICRO SCOPI C squamous epi Modera te /lpf negati ve,sma ll abnormal Not Available [facility] [address], [place], [address], 11/30/2021 13:05:27 12/01/19 22 11/30/2021 URINE CULTU RE final report Microb iology result s SOURC E Void KNOWN ALLER GIES na TREAT MENT na MEDIA PLATE D AT: Media plate d on 2021 @ 3:17 PM COLON Y COUNT >100, 000 cfu/m l RESUL T Mixed Growt h,Mul tiple Gram Posit carissa Morph ologi c Types ,No Furth er Scooby p Not Available [facility] [address], [place], [address], 12/02/2021 10:00:13 11/02/19 22 06/07/2021 CT, abdom [...] Name and Address Organization Details Recorded Time 730996 Medicinal product containin g penicilli n and acting as antibacte rial agent (product) medicatio n hives Not available Not available 11/04/2021 97802 05 SNOMED swell ing and hives Not [...] Address Organization Details Last Updated DateTime 11/30/2021 66050.18 g 152.4 cm Yazmin Rodriguez [facility] 11/30/2021 11:15:56 Date Recorded Body [...] o Information not available 11/30/2021 Preferred Language Thai Information not available 11/30/2021 Number Of Pregnancies [...] Unspecified Relation Family history of diabetes mellitus [id number] Not available 2021 14:41:20 Father Family history of cardiac disorder [place] [id number] Not available 2021 14:41:20 Mother Family history of malignant neoplasm [id number] Not available 2021 14:41:20 Medical History Condition Response Diabetes Y Sexually Transmitted Infection N Bleeding Disorder N Other N High Blood [...] Diagnosis/Indication Diagnosis SNOMED-CT Code Diagnosis ICD10 Code [id number] NILS Maurer_Valentino dbury [address] [address] 11/30/2021 10:56:09 11/30/2021 12:06:56 History of calculus of kidney [id number] Z87.442 Health Concerns Section Related Observation LastModified by Organization Detai ls LastModified Time None Recorded Concern Status LastModified by Organization Details LastModified Time None Recorded Advance Directives Directive None Recorded Payers Encounter Date Sequence Insurance Name Policy Number Policy Osorio Covered Member ID Osorio Member ID Guarantor Name 11/30/2021 1 UCARE - DOS ON OR AFTER 19 (MEDICARE REPLACEMENT/ ADVANTAGE - HMO) [id number] Annabella Longoria [id number] Annabella Longoria Notes Date Note Type Note Provider Name and Address Organization Details Recorded Time 11/30/2021 text/html This is a 81 yea r old female with history of kidney stones here for follow up.She reports recent diagnosis of stage 3 kidney disease.She has a history of kidney stones (s/p ESWL in [place] - 2015), Right ureteroscopy with laser lithotripsy, [...] children, all vaginal deliveries. Monse Slaughter PA-C [address] [place] [address],[address], [place], [address], [facility] 11/30/2021 14:53:43 OBGyn Episode No OBEpisode recorded.
--- OUTSIDE RECORDS SUMMARY | 2024-02-23 12:38 | XMS_ITS ---
Author Organization [facility] Address [address] [place] [id number] Care Team Providers Care Bilingual Medical Receptionist Name Role Phone Unavailable Unavailable Unavailable Surgery Details Not on file Complications Check Surgery Details section. Procedure Estimated Blood Loss Check Surgery Details section. Procedure Findings Check Surgery Details section. Procedure Specimens Taken Check Surgery Details section.
--- OUTSIDE RECORDS SUMMARY | 2024-02-23 12:38 | XMS_ITS | Referral Summary ---
Author Organization [facility] Address [address] [place] [id number] Care Team Providers Care Anodize Machine Operator Name Role Phone Unavailable Primary Care Provider Unavailabl e Source Comments Patient records contain information from all sites at [facility]. For routine questions regarding patient records, call [phone] during business hours, M-F 8:00 AM - 5:00 PM Central Time. Record requests for emergency care only can be directed to [phone] at any time.[facility] Allergies Active Allergy Reactions Criticality Noted [...] on file Legal Sex Female 9:48 AM SPINNING DOFFER Gender Identity Not on file Sexual Orientation Not on file Last Filed Vital Signs Vital Sign Reading Time Taken Comments Blood Pressure 135/44 04/29/2023 9:23 AM SPINNING DOFFER Pulse 76 04/29/2023 9:23 AM SPINNING DOFFER Temperature 36.1 C (97 F) 04/29/2023 9:23 AM SPINNING DOFFER Respiratory Rate - - Oxygen Saturation - - Inhaled Oxygen Concentration - - Weight 83.1 kg (183 lb 3.2 oz) 04/29/2023 9:23 A M SPINNING DOFFER Height - - Body Mass Index - - Plan of Treatment Not on file Medical Devices Implanted Type Area Vocational Adviser Device Identifier Shelf Expiration Date Model / Serial / Lot Stent Other Stent Other Heart Insurance [facility]
[2024-02-23 12:42] VITALS: BP 115/72; PULSE 83; RESP 16; TEMP 36.6
--- OUTSIDE RECORDS SUMMARY | 2024-02-26 13:54 | XMS_ITS ---
Author Organization [facility] Care Team Providers Care Motor Vehicle Escort Driver Name Role Phone THIERRY BROWN Primary Care Physician [phone] Allergies Substance Primary Reaction Secondary Reaction Sensitivity Severity Comment Status PENICILLINS Swelling SV CAN take Keflex Active Discharge Medication Reconciliation Medication Dose Route Frequency Indication Prescrib ed Date simvastatin (zocor oral), 40 mg, oral, every evening 40 mg oral every evening 05/21/2011 sertraline (sertraline oral), 150 mg, oral, once daily 150 mg oral once daily 05/21/2011 proAir, 8g, inhalation, every 4 hrs as needed 8g inhalation every 4 hrs as needed 05/21/2011 omeprazole (omeprazole oral), 20 mg, oral, once daily 20 mg oral once daily 05/21/2011 nebivolol (bystolic oral), 5 mg, oral, once daily 5 mg oral once daily 05/21/2011 metformin (metformin oral), 500 mg, oral, twice daily 500 mg oral twice daily 05/21/2011 losartan-hydrochlor othiazide (losartan-hydrochlo rothiazide oral), 100-12.5 mg 1 tablet, oral, once daily 100-12.5 mg 1 tablet oral once daily 05/21/2011 levothyroxine (levothyroxine oral), 25 mcg, oral, once daily 25 mcg oral once daily 05/21/2011 fish oil oral, 1000 mg, oral, 3 times daily 1000 mg oral 3 times daily 05/21/2011 diphenhydramine-abel taminophen (tylenol pm extra strength oral), 2 tablet, oral, at bedtime 2 tablet oral at bedtime 05/21/2011 bupropion hcl (wellbutrin xl oral), 150 mg, oral, every morning 150 mg oral every morning 012 avelox, 400mg, oral, daily 400mg oral daily New medication 05/21/2011 aspirin, 81mg, oral, daily 81mg oral daily New medication 05/21/2011 alprazolam (xanax oral), 0.5 mg, oral, at bedtime 0.5 mg oral at bedtime 05/21/2011 alprazolam (xanax oral), 0.25 mg, oral, every morning 0.25 mg oral every morning 012 Problem List Problem Active Date Status Comments Dyspnea on exertion Apr 2011 Resolved Hypertension screening Apr 2011 Inactive Chest pain May 2011 Active Chest pain May 2011 Active At risk for injury Unknown Active 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 Procedure History Procedure Date Comments Dilation and curettage of uterus Unknown Procedure on knee Unknown Hysterectomy Unknown Tonsillectomy and adenoidectomy Unknown Repair of musculotendinous cuff of shoulder Unkn own Appendectomy Unknown Othervarious surgeries on feet Unknown v arious surgeries on feet Advance Directives Type Status Comments living will pt/rep instruct bring Advanced D irective Type(s): living will Directive Status: pt/rep instruct bring Encounters Patient ID Location Reason For Visit Patient Type Admit Date/Time Discharge Date/Time [id number] Outpatient Series 01/19/2002 00:00 04/02/2002 00:00 [id number] Outpatient Series 05/19/2002 00:00 07/24/2002 00:00 [id number] Emergency Registration 08/09/2002 00:00 08/09/2002 00:00 [id number] Outpatient Series 09/30/2002 00:00 03/17/2003 00:00 [id number] Outpatient Series 05/18/2003 00:00 11/17/2003 00:00 [id number] Outpatient Series 05/18/2003 00:00 11/17/2003 00:00 [id number] Emergency Registration 07/03/2004 00:00 07/03/2004 00:00 [id number] Emergency Registration 07/03/2004 00:00 07/03/2004 00:00 [id number] ORTHO CLINIC R FOOT PAIN/NO INJ Outpatien t Clinic/Therapy 08/03/2005 09:41 08/03/2005 23:59 [id number] SURGERY OP/IP X Outpatient Surgery 09/14/2005 00:41 09/14/2005 10:10 [id number] ORTHO CLINIC RIGHT ANKLE EVALUATION Outpatient Clinic/Therapy 09/17/2005 10:30 09/17/2005 23:59 [id number] ORTHO CLINIC R FOOT PAIN Outpatient Diagnostic 09/28/2005 10:02 09/28/2005 23:59 [id number] THREAD MILLING MACHINE SET UP OPERATOR EXOSTOSIS 5TH RT TOE Specimen Bill Patient 07/25/2007 17:40 07/25/2007 23:59 [id number] EMERGENCY DEPT TRIAG LACERATION TO RIGHT HAND Emergency Registration 10/13/2007 14:48 10/13/2007 16:41 [id number] THREAD MILLING MACHINE SET UP OPERATOR SCREEN MAL NEOP-CERVIX Specimen Bill Patient 04/10/2010 18:52 04/10/2010 23:59 [id number] CARDIOLOGY HYPERTENSION NOS Outpatient Diagnostic 10/09/2010 10:32 10/09/2010 23:59 [id number] EMERGENCY DEPT TRIAG HTN EVAL Emergency Registration 05/14/2011 20:34 05/14/2011 23:14 [id number] 3E CP Outpatient in Bed 05/20/2011 20:51 05/21/2011 11:41 [id number] [facility] IRON DEFIC ANEMIA NEC Outpatient Diagnostic 07/12/2011 15:29 07/12/2011 23:59 [id number] LABORATORY DMII WO CMP NT S T UNCNTR Outpatient Diagnostic 09/24/2011 08:05 09/24/2011 23:59 [id number] MEDICAL NUTRITION TH IBS LOOSE STOOLS AND DM Outpatient Series 01/08/2012 10:22 01/16/2012 23:59 [id number] MEDICAL NUTRITION TH IBS LOOSE STOOLS AND DM Outpatient Series 01/17/2012 00:01 02/15/2012 23:59 [id number] MEDICAL NUTRITION TH IBS LOOSE STOOLS AND DM Outpatient Series 02/16/2012 00:01 03/17/2012 23:[id number] SCAN 719.47 PAIN IN R FOOT AND TRAMAT Outpatient Diagnostic 03/05/2012 17:47 03/05/2012 23:59 [id number] SIP [facility] ADULT HTN Specimen Bill Patient 03/14/2012 12:21 03/14/2012 23:59 [id number] 4N PAIN RIGHT FOOT ARTHRITIS Outpatient in Bed 03/20/2012 00:43 03/21/2012 15:39 [id number] [facility] 05/13/2012 09:49 05/13/2012 23:59 [id number] SIP [facility] ADULT SIP [facility] 06/10/2012 15:27 06/10/2012 23:59 [id number] SIP [facility] ADULT SIP [facility] 07/08/2012 16:19 07/08/2012 23:59 [id number] RADIOLOGY SMALL BOWEL BLEEDING Outpatient Diagnostic 08/18/2012 09:51 08/18/2012 23:59 [id number] [facility] 10/07/2012 14:17 10/07/2012 23:59 [id number] SURGERY OP/IP PAINFUL HARDWARE AND BONE SPUR R Outpatient Surgery 11/06/2012 05:33 11/06/2012 12:05 [id number] SIP [facility] ADULT [facility] 11/18/2012 11:54 11/18/2012 23:59 [id number] SIP [facility] ADULT DMII WO CMP NT ST [facility]CNTR Specimen Bill Patient 05/01/2013 12:51 05/01/2013 23:59 [id number] SIP [facility] ADULT DMII WO CMP NT ST [facility]TR Specimen Bill Patient 10/05/2013 09:03 10/05/2013 23:59 [id number] SLEEP STUDY 401.9 HYPERTENSI ON 780.79 FATIGUE Outpatient Clinic/Therapy 12/08/2013 16:18 12/08/2013 23:59 [id number] SLEEP STUDY 401.9 HYPERTENSI ON 780.79 FATIGU Outpatient Clinic/Therapy 12/29/2013 16:28 12/29/2013 23:59 [id number] [facility]IP [facility] 02/16/2014 10:57 02/16/2014 23:59 [id number] PRE-ADMIT SERVICES PREOP EXAM UNSPCF Outpatient Diagnostic 02/17/2014 14:23 02/17/2014 23:59 [id number] SURGERY OP/IP OTHER HAMMER TOE Outpatient Surgery 02/18/2014 05:03 02/18/2014 09:20 [id number] SIP [facility] 02/26/2014 10:55 02/26/2014 23:59 [id number] SIP [facility] ADULT HYPOTHYROIDISM NOS Specimen Bill Patient 03/05/2014 13:38 03/05/2014 23:59 Family History Relative Diagnosis Diagnosis Date Age At Onset Comments Father () Cancer Mother () Cancer Social History Social History Element Information Smoking Status Former smoker Vital Signs Date/Time: 02/17/2014 15:41 02/18/2014 06:2 5 Height (cm) 155 Weight (kg) 89.4 Method: stated 93 Method: standing BMI (kg/m2) 37.2 BSA (m2) 2
--- OUTSIDE RECORDS SUMMARY | 2024-02-26 13:54 | XMS_ITS | Continuity of Care Document ---
Author Name [employer] Organization Interface Problems Problem Status Onset Date Classification Date Reported Comments Source Osteoarthrosis of the carpometacarpal joint of the thumb (disorder) 12/20/19 18 12/20/2017 [facility] Arthritis of carpometacarpal (CMC) joint of right thumb 12/20/19 18 12/20/2017 [facility] Pre-ulcerative calluses 10/26/19 18 10/26/2017 [facility] Diabetic neuropathy, type II diabetes mellitus 10/26/19 18 10/26/2017 [facility] Onychomycosis due to dermatophyte 10/26/19 18 10/26/2017 [facility] Onychogryphosis 10/26/19 18 10/26/2017 [facility] Onychogryphosis 10/26/19 18 10/26/2017 [facility] Diabetic neuropathy, type II diabetes mellitus 10/26/19 18 10/26/2017 [facility] Onychomycosis due to dermatophyte 10/26/19 18 10/26/2017 [facility] Pre-ulcerative calluses 10/26/19 18 10/26/2017 [facility] Osteoarthritis of left thumb 09/17/19 18 10/08/2017 [facility] Left carpal tunnel syndrome 09/17/19 18 10/08/2017 [facility] Left carpal tunnel syndrome 09/17/19 18 10/08/2017 [facility] Osteoarthritis of left thumb 09/17/19 18 10/08/2017 [facility] Arthritis of carpometacarpal (CMC) joint of right thumb 09/13/19 18 09/13/2017 [facility] Arthritis of carpometacarpal (CMC) joint of right thumb 07/12/19 18 07/12/2017 [facility] Chronic diastolic heart failure 06/08/19 18 06/18/2017 [facility], [facility] 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 06/08/19 18 06/18/2017 [facility], [facility] COPD (chronic obstructive pulmonary disease) 06/08/19 18 06/18/2017 [facility], [facility] DM type 2 with diabetic dyslipidemia 06/08/19 18 06/18/2017 [facility], [facility] GERD (gastroesophageal reflux disease) 06/08/19 18 06/18/2017 [facility], [facility] HTN (hypertension) 06/08/19 18 06/18/2017 [facility], [facility] Hypothyroidism 06/08/19 18 06/18/2017 [facility], [facility] EUGENIE (obstructive sleep apnea) 06/08/19 18 06/18/2017 [facility], [facility] Osteoarthritis of right thumb 06/08/19 18 06/18/2017 [facility], [facility] Right carpal tunnel syndrome 06/08/19 18 06/18/2017 [facility], [facility] Sleep apnea 06/08/19 18 06/18/2017 [facility], [facility] EUGENIE (obstructive sleep apnea) 06/08/19 18 06/18/2017 [facility], [facility] Right carpal tunnel syndrome 06/08/19 18 06/18/2017 [facility], [facility] HTN (hypertension) 06/08/19 18 06/18/2017 [facility], [facility] GERD (gastroesophageal reflux disease) 06/08/19 18 06/18/2017 [facility] Sleep apnea 06/08/19 18 06/18/2017 [facility], [facility] Osteoarthritis of right thumb 06/08/19 18 06/18/2017 [facility], [facility] Hypothyroidism 06/08/19 18 06/18/2017 [facility], [facility] COPD (chronic obstructive pulmonary disease) 06/08/19 18 06/18/2017 [facility], [facility] DM type 2 with diabetic dyslipidemia 06/08/19 18 06/18/2017 [facility], [facility] 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 06/08/19 18 06/18/2017 [facility], [facility] Chronic diastolic heart failure 06/08/19 18 06/18/2017 [facility], [facility] High level of uric acid in blood 06/05/19 18 06/05/2017 [facility] High level of uric acid in blood 06/05/19 18 06/05/2017 [facility] Kidney stones 04/25/19 18 04/28/2017 [facility] Kidney stones 04/25/19 18 04/28/2017 [facility] Blister Of Toe(<span ZP=[id number]>Co nfirmed</span>) 04/06/19 16 01/19/2018 [facility], [facility] Chest pain Active 05/20/19 12 03/19/2014 [facility] Dyspnea on exertion Resolved 05/14/19 12 03/19/2014 [facility] Hypertension screening Inactive 05/14/19 12 03/19/2014 [facility] At risk for injury Active 03/19/2014 [facility] Traumatic arthropathy of the ankle and/or foot Active 03/19/2014 [facility] Low back pain 01/01/2017 [facility] Stiffness of unspecified joint, not elsewhere classified 01/01/2017 [facility] Muscle spasm of back 01/01/2017 [facility] Abnormal posture 01/01/2017 [facility] Muscle weakness (generalized) 01/01/2017 [facility] Anemia(<span [id number]>Co nfirmed</span>) 01/19/2018 [facility], [facility] Moderate aortic stenosis(<span DJ=[id number]>Co nfirmed</span>) 01/19/2018 [facility], [facility] Arthritis(<span XH=[id number]>Co nfirmed</span>) 01/19/2018 [facility], [facility] Arthritis of midfoot(<span BC=[id number]>C onfirmed</span>) 01/19/2018 [facility], [facility] Hematuria(<span [id number]>C onfirmed</span>) 01/19/2018 [facility], [facility] Chronic diastolic heart failure(<span YA=[id number]>C onfirmed</span>) 01/19/2018 [facility], [facility] COPD (chronic obstructive pulmonary disease)(<span EF=[id number]>Co nfirmed</span>) 01/19/2018 [facility], [facility] Chronic foot ulcer(<span QH=[id number]>Co nfirmed</span>) 01/19/2018 [facility], [facility] Depression(<span ZG=[id number]>Co nfirmed</span>) 01/19/2018 [facility], [facility] 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(<spa n IR=[id number]>Co nfirmed</span>) 01/19/2018 [facility], [facility] Bony exostosis(<span TI=[id number]>Co nfirmed</span>) 01/19/2018 [facility], [facility] Foot pain, right(<span MB=[id number]>Co nfirmed</span>) 01/19/2018 [facility], [facility] GERD (gastroesophageal reflux disease)(<span OM=[id number]>Co nfirmed</span>) 01/19/2018 [facility] Hammertoe(<span KQ=[id number]>Co nfirmed</span>) 01/19/2018 [facility], [facility] HTN (hypertension)(<spa n VL=[id number]>Co nfirmed</span>) 01/19/2018 [facility], [facility] Hypothyroidism(<spa n OR=[id number]>Co nfirmed</span>) 01/19/2018 [facility], [facility] Ingrown right big toenail(<span SJ=[id number]>Co nfirmed</span>) 01/19/2018 [facility], [facility] Iron adverse reaction(<span [id number]>Co nfirmed</span>) 01/19/2018 [facility], [facility] Iron deficiency anemia due to chronic blood loss(<span QD=[id number]>Co nfirmed</span>) 01/19/2018 [facility], [facility] IBS (irritable bowel syndrome)(<span ZB=[id number]>Co nfirmed</span>) 01/19/2018 [facility] Kidney stone(<span FX=[id number]>C onfirmed</span>) 01/19/2018 [facility], [facility] EUGENIE (obstructive sleep apnea)(<span LP=[id number]>Co nfirmed</span>) 01/19/2018 [facility], [facility] Onychogryphosis(<sp an WM=[id number]>Co nfirmed</span>) 01/19/2018 [facility], [facility] Onychomycosis due to dermatophyte(<span QB=[id number]>Co nfirmed</span>) 01/19/2018 [facility] Right shoulder pain(<span MG=[id number]>C onfirmed</span>) 01/19/2018 [facility], [facility] Pre-ulcerative calluses(<span UJ=[id number]>Co nfirmed</span>) 01/19/2018 [facility], [facility] Sleep apnea(<span RV=[id number]>C onfirmed</span>) 01/19/2018 [facility], [facility] Tailors bunion(<span EN=[id number]>Co nfirmed</span>) 01/19/2018 [facility], [facility] DM type 2 with diabetic dyslipidemia(<span TY=[id number]>Co nfirmed</span>) 01/19/2018 [facility] Diabetic neuropathy, type II diabetes mellitus(<span SD=[id number]>C onfirmed</span>) 01/19/2018 [facility] Carpal tunnel syndrome, bilateral(<span BC=[id number]>C onfirmed</span>) 01/19/2018 [facility], [facility] Left carpal tunnel syndrome(<span OY=[id number]>C onfirmed</span>) 01/19/2018 [facility], [facility] Right carpal tunnel syndrome(<span LG=[id number]>C onfirmed</span>) 01/19/2018 [facility], [facility] Osteoarthritis of left thumb(<span JB=[id number]>C onfirmed</span>) 01/19/2018 [facility], [facility] Osteoarthritis of right thumb(<span EM=[id number]>C onfirmed</span>) 01/19/2018 [facility], [facility] Fatigue(<span AI=[id number]>C onfirmed</span>) 01/19/2018 [facility], [facility] Left foot pain(<span ZL=[id number]>C onfirmed</span>) 01/19/2018 [facility], [facility] Hallux abductovalgus with bunions(<span NC=[id number]>C onfirmed</span>) 01/19/2018 [facility], [facility] Benign paroxysmal vertigo, bilateral 02/13/2017 [facility] Unsteadiness on feet 02/13/2017 [facility] Arthritis of carpometacarpal (CMC) joint of right thumb(<span RB=[id number]>C onfirmed</span>) 01/19/2018 [facility], [facility] Right carpal tunnel syndrome(<span SS=[id number]>C onfirmed</span>) 01/19/2018 [facility], [facility] Left carpal tunnel syndrome(<span YY=[id number]>C onfirmed</span>) 01/19/2018 [facility], [facility] Osteoarthritis of left thumb(<span YC=[id number]>C onfirmed</span>) 01/19/2018 [facility], [facility] R FOOT PAIN/NO INJ 03/19/2014 [facility] X 03/19/2014 [facility] RIGHT ANKLE EVALUATION 03/19/2014 [facility] R FOOT PAIN 03/19/2014 [facility] EXOSTOSIS 5TH RT TOE 03/19/2014 [facility] LACERATION TO RIGHT HAND 03/19/2014 [facility] SCREEN MAL NEOP-CERVIX 03/19/2014 [facility] HYPERTENSION NOS 03/19/2014 [facility] HTN EVAL 03/19/2014 [facility] CP 03/19/2014 [facility] IRON DEFIC ANEMIA NEC 03/19/2014 [facility] DMII WO CMP NT ST UNCNTR 03/19/2014 [facility] IBS LOOSE STOOLS AND DM 03/19/2014 [facility] 719.47 PAIN IN R FOOT AND TRAMAT 03/19/2014 [facility] HTN 03/19/2014 [facility] PAIN RIGHT FOOT ARTHRITIS 03/19/2014 [facility] SMALL BOWEL BLEEDING 03/19/2014 [facility] PAINFUL HARDWARE AND BONE SPUR R 03/19/2014 [facility] 401.9 HYPERTENSION 780.79 FATIGUE 03/19/2014 [facility] 401.9 HYPERTENSION 780.79 FATIGU 03/19/2014 [facility] PREOP EXAM UNSPCF 03/19/2014 [facility] OTHER HAMMER TOE 03/19/2014 [facility] HYPOTHYROIDISM NOS 03/19/2014 [facility] Medications Medication Details Route Status Patient Instructions Ordering Provider Order Date Source allopurinol 100 mg oral tablet Active 2017 [facility] atorvastatin 40 mg oral tablet Active 2017 [facility] Metformin hydrochloride 500 MG Oral Tablet Active 2017 [facility] Polysaccharide iron complex 150 MG Oral Capsule [Ferrex-150] Active 2017 [facility] Hydrochlorothiazid e 12.5 MG / Losartan Potassium 100 MG Oral Tablet Active 2017 [facility] Potassium Chloride 10 MEQ Extended Release Capsule Active 2017 [facility] Acetaminophen 325 MG / Hydrocodone Bitartrate 5 MG Oral Tablet [Shannon 5/325] 1 tab(s) By mouth Every six hours as needed as needed for pain. Refills: 0. Active 2017 [facility] Abilify By mouth once a day. 1/2 a pill daily. Active 2017 [facility] allopurinol (allopurinol 100 mg oral tablet) TAKE 1 TABLET BY MOUTH DAILY. Refills: 2. Active 2017 [facility] allopurinol 100 mg oral tablet Active 2017 [facility] Acetaminophen 325 MG / Hydrocodone Bitartrate 5 MG Oral Tablet [Shannon 5/325] 1 tab(s) By mouth Every 4 hours for 7 Days. Refills: 0. Active 2017 [facility] furosemide (furosemide 20 mg oral tablet) TAKE 1-2 TABLETS BY MOUTH A DAY. Refills: 5. Active 2017 [facility] Metformin hydrochloride 500 MG Oral Tablet Active 2017 [facility] levothyroxine 0.137 mg (137 mCg) oral tablet Active 2017 [facility] levothyroxine (levothyroxine 0.137 mg (137 mCg) oral tablet) TAKE 1 TABLET BY MOUTH DAILY. Refills: 3. Active 2017 [facility] aripiprazole 5 mg oral tablet Active 2017 [facility] aripiprazole (aripiprazole 5 mg oral tablet) 0.5 tab(s) By mouth At Bedtime. Refills: 0. Active 2017 [facility] Metformin hydrochloride 500 MG Oral Tablet 1 tab(s) By mouth twice a day with meals. Refills: 0. Active 2017 [facility], [facility] Lidocaine Hydrochloride 40 MG/ML Topical Cream [Aspercreme with Lidocaine] Active 2017 [facility] lidocaine topical (Aspercreme with Lidocaine 4% topical cream) 1 Amarjit to the skin three times a day as needed as needed for pain. applies to hand. Active 2017 [facility] Urea 400 MG/ML Topical Cream 1 Amarjit to the skin At bed time. applies to foot. Active 2017 [facility] Polysaccharide iron complex 150 MG Oral Capsule [Ferrex-150] Active 2017 [facility] furosemide 20 mg oral tablet Active 2017 [facility] furosemide (furosemide 20 mg oral tablet) 1 tab(s) By mouth two times a day. Active 2017 [facility] duloxetine 60 MG Enteric Coated Capsule [Cymbalta] Active 2017 [facility], [facility] duloxetine 20 MG Enteric Coated Capsule [Cymbalta] Active 2017 [facility] allopurinol 100 mg oral tablet
See Instructions, # 30 Tablet, Refill(s) 2, Instructions: TAKE 1 TABLET BY MOUTH DAILY, Pharmacy: [facility]/pharmacy #[id number] Active 2017 [facility] allopurinol (allopurinol 100 mg oral tablet) TAKE 1 TABLET BY MOUTH DAILY. Refills: 2. Active 2017 [facility], [facility] Acetaminophen 325 MG / Hydrocodone Bitartrate 5 MG Oral Tablet [Shannon 5/325]
1 Tablet, Orally, Q6, PRN as needed for pain, Acute, Dispense: 28 Tablet, Refills: 0, Total Refills: 0, Print TY Number, 06/21/17 11:42:00 EDT, 06/28/17 8:00:00 EDT, [id number], 1 Tablet Orally Q6,PRN:as needed for pain, Supply Active 2017 [facility] Polysaccharide iron complex 150 MG Oral Capsule [Ferrex-150]
See Instructions, Soft Stop, Dispense: 13 Capsule, Refills: 6, Total Refills: 6, TAKE 1 CAPSULE ORALLY 3 TIMES A WEEK FOR 30 DAYS, 05/10/17 13:52:10 EST, [id number], TAKE 1 CAPSULE ORALLY 3 TIMES A WEEK FOR 30 DAYS Active 2017 [facility], [facility] furosemide 20 mg oral tablet
See Instructions, # 60 Tablet, Refill(s) 1, Instructions: TAKE 1-2 TABLETS BY MOUTH A DAY, Pharmacy: [facility]/pharmacy #[id number] Active 2017 [facility] allopurinol 100 mg oral tablet
100 mg, = 1 Tablet, Orally, Daily, Maintenance, Dispense: 30 Tablet, Refills: 2, Total Refills: 2, 04/26/17 12:58:29 EST, [id number], 1 Tablet Orally Daily Active 2017 [facility], [facility] furosemide 20 mg oral tablet
See Instructions, # 60 Tablet, Refill(s) 1, Instructions: TAKE 1-2 TABLETS BY MOUTH A DAY, Pharmacy: [facility]/pharmacy #[id number] Active 2016 [facility] atenolol 25 mg oral tablet Active 2016 [facility] atenolol (atenolol 25 mg oral tablet) 1 tab(s) By mouth Every Morning. Refills: 3. Active 2016 [facility] atenolol (atenolol 25 mg oral tablet) 1 tab(s) By mouth Every Morning. Refills: 3. Active 2016 [facility] atorvastatin 40 mg oral tablet Active 2016 [facility] atorvastatin (atorvastatin 40 mg oral tablet) 1 tab(s) By mouth At Bedtime. Refills: 3. Active 2016 [facility] Hydrochlorothiazid e 12.5 MG / Losartan Potassium 100 MG Oral Tablet TAKE 1/2 TABLET BY MOUTH EVERY MORNING. Refills: 3. Active 2016 [facility] metFORMIN 500 mg oral tablet, extended release
500 mg, = 1 Tablet, Orally, Daily, Maintenance, Dispense: 90 Tablet, Refills: 3, Total Refills: 3, 01/16/17 11:07:33 EDT, Pharmacy: [facility]/pharmacy #[id number], 1 Tablet Orally Daily, Supply Active 2016 [facility] meclizine 25 mg oral tablet
25 mg, = 1 Tablet, Orally, Daily, for 30 Days, Acute, Dispense: 30 Tablet, Refills: 1, Total Refills: 1, 01/15/17 12:43:38 EDT, 03/16/17 12:43:38 EST, Pharmacy: [facility]/pharmacy #[id number], 1 Tablet Orally Daily,x30 Days Active 2016 [facility] furosemide 20 mg oral tablet
See Instructions, # 60 Tablet, Refill(s) 1, Instructions: TAKE 1-2 TABLETS BY MOUTH A DAY, Pharmacy: [facility]/pharmacy #[id number] Active 2016 [facility] Potassium Chloride 10 MEQ Extended Release Capsule 1 cap By mouth once a day. Refills: 11. Active 2016 [facility] Vitamin D3 1000 units oral tablet Active 2016 [facility] cholecalciferol (Vitamin D3 1000 units oral tablet) 1 tab(s) By mouth once a day for 30 Days. Active 2016 [facility] lysine 500 mg oral tablet
500 mg, = 1 Tablet, Orally, PRN for canker sore prevention, Maintenance, 10/31/16 13:26:37 EDT Active 2016 [facility], [facility] lysine 500 mg oral tablet Active 2016 [facility], [facility] lysine (lysine 500 mg oral tablet) 1 tab(s) By mouth as needed for canker sore prevention. Active 2016 [facility], [facility] duloxetine 30 MG Enteric Coated Capsule [Cymbalta]
60 mg, = 2 Capsule, Orally, Daily, Maintenance, dose needs clarified - rx by Dr. Reeves, 10/31/16 13:25:01 EDT Active 2016 [facility], [facility] naproxen sodium 220 mg oral capsule
220 mg, = 1 Capsule, Orally, Q12H, PRN as needed for pain, Maintenance, 10/31/16 13:22:45 EDT Active 2016 [facility] Naproxen sodium 220 MG Oral Capsule
220 mg, = 1 Capsule, Orally, Q12H, PRN as needed for pain, Maintenance, 10/31/16 13:22:45 EDT Active 2016 [facility], [facility] Acetaminophen 500 MG Oral Tablet [Tylenol] Active 2016 [facility] acetaminophen (Tylenol Extra Strength 500 mg oral tablet) 2 tab(s) By mouth At Bedtime as needed for pain. Active 2016 [facility] atenolol 25 mg oral tablet
25 mg, = 1 Tablet, Orally, QAM, Maintenance, Dispense: 90 Tablet, Refills: 3, Total Refills: 3, 10/25/16 13:44:52 EDT, Pharmacy: [facility]/pharmacy #[id number], 1 Tablet Orally QAM Active 2016 [facility], [facility] Lidocaine Hydrochloride 0.05 MG/MG Transdermal Patch [Lidoderm]
1 Patch, Topical, Daily, Maintenance, Dispense: 10 Patch, Refills: 0, Total Refills: 0, 10/08/16 16:59:04 EDT, [id number] Active 2016 [facility], [facility] Urea 400 MG/ML Topical Cream
1 Amarjit, Topical, BID, for 90 Days, Acute, Dispense: 90 GM, Refills: 4, Total Refills: 4, 10/02/16 15:19:49 EDT, 12/26/17 15:19:49 EDT, [id number] [facility] (from [id number] ) in session 47, Supply Active 2016 [facility], [facility] Polysaccharide iron complex 150 MG Oral Capsule [Ferrex-150]
See Instructions, Soft Stop, Dispense: 13 Capsule, Refills: 6, Total Refills: 6, TAKE 1 CAPSULE ORALLY 3 TIMES A WEEK FOR 30 DAYS, 10/02/16 9:00:47 EDT, Pharmacy: [facility]/pharmacy #[id number], TAKE 1 CAPSULE ORALLY 3 TIMES A WEEK FOR 30 DAYS Active 2016 [facility], [facility] furosemide 20 mg oral tablet
20 mg, = 1 Tablet, Orally, BID, Maintenance, Dispense: 60 Tablet, Refills: 3, Total Refills: 3, 1-2 tabs daily, 09/26/16 14:00:18 EDT, Pharmacy: [facility]/pharmacy #[id number], 1 Tablet Orally BID,Instr:1-2 tabs daily, Supply Active 2016 [facility] levothyroxine 0.137 mg (137 mCg) oral tablet
137 mCg, = 1 Tablet, Orally, Daily, Maintenance, Dispense: 90 Tablet, Refills: 3, Total Refills: 3, 09/13/16 12:56:01 EDT, Pharmacy: [facility]/pharmacy #[id number], 1 Tablet Orally Daily, Supply Active 2016 [facility], [facility] metFORMIN 500 mg oral tablet, extended release
500 mg, = 1 Tablet, Orally, Daily, Maintenance, Dispense: 90 Tablet, Refills: 3, Total Refills: 3, 08/14/16 15:34:05 EDT, Pharmacy: [facility]/pharmacy #[id number], 1 Tablet Orally Daily,x90 Days, Supply Active 2016 [facility] OneTouch Verio Test Strips Active 2016 [facility] Unknown Med (OneTouch Verio Test Strips) Test blood sugar 2 times daily Other Unscheduled for 30 Days. Diagnosis : E11.9. Refills: 11. Active 2016 [facility] atorvastatin 40 mg oral tablet
40 mg, 1 Tablet, Orally, QHS, Maintenance, Dispense: 30 Tablet, Refills: 5, Total Refills: 5, 02/16/16 15:04:56 EST, Pharmacy: [facility]/pharmacy #[id number], 1 Tablet Orally QHS, Supply Active 2015 [facility] Hydrochlorothiazid e 12.5 MG / Losartan Potassium 100 MG Oral Tablet
See Instructions, Maintenance, Dispense: 15 Tablet, Refills: 11, Total Refills: 3, 1/2 Tablet Orally QAM, 01/18/16 11:54:58 EDT, Pharmacy: [facility]/pharmacy #[id number], 1/2 Tablet Orally QAM, Supply Active 2015 [facility] calcium polycarbophil 625 MG Oral Tablet [FiberCon]
625 mg, = 1 Tablet, Orally, BID, Maintenance, takes in the afternoon and evening, 12/07/15 13:23:28 EDT, Supply Active 2015 [facility] calcium polycarbophil 625 MG Oral Tablet [FiberCon] Active 2015 [facility] multivitamin Multiple Vitamins oral tablet Active 2015 [facility] multivitamin (multivitamin Multiple Vitamins oral tablet) 1 tab(s) By mouth Every Morning. Active 2015 [facility] 24 HR Bupropion Hydrochloride 300 MG Extended Release Tablet [Wellbutrin] Active 2015 [facility] aspirin 81 mg oral tablet Active 2015 [facility] aspirin (aspirin 81 mg oral tablet) 1 tab(s) By mouth At Bedtime. Active 2015 [facility] 24 HR Alprazolam 0.5 MG Extended Release Tablet Active 2015 [facility] Vitamin D3 1000 intl units oral capsule
1,000 IntlUnits, = 1 Capsule, Orally, Every Afternoon, Maintenance, 05/03/14 12:43:25 EST, Supply Active 2014 [facility] Simvastatin 40 MG Oral Tablet [Zocor] simvastatin (zocor oral), 40 mg, oral, every evening ORAL Active 2011 [facility] Sertraline 50 MG Oral Tablet sertraline (sertraline oral), 150 mg, oral, once daily ORAL Active 2011 [facility] Omeprazole 20 MG Enteric Coated Tablet omeprazole (omeprazole oral), 20 mg, oral, once daily ORAL Active 2011 [facility] nebivolol 5 MG Oral Tablet nebivolol (bystolic oral), 5 mg, oral, once daily ORAL Active 2011 [facility] 24 HR Metformin hydrochloride 500 MG Extended Release Tablet metformin (metformin oral), 500 mg, oral, twice daily ORAL Active 2011 [facility] Hydrochlorothiazid e 12.5 MG / Losartan Potassium 100 MG Oral Tablet losartan-hydro chlorothiazide (losartan-hydr ochlorothiazid e oral), 100-12.5 mg 1 tablet, oral, once daily ORAL Active 2011 [facility] {7 (Levothyroxine Sodium 0.025 MG Oral Capsule) } Pack levothyroxine (levothyroxine oral), 25 mcg, oral, once daily ORAL Active 2011 [facility] 24 HR Bupropion Hydrochloride 150 MG Extended Release Tablet bupropion hcl (wellbutrin xl oral), 150 mg, oral, every morning ORAL Active 2011 [facility] moxifloxacin 400 MG Oral Tablet [Avelox] avelox, 400mg, oral, daily ORAL Active 2011 [facility] Aspirin 0.338 MG/ML Oral Solution aspirin, 81mg, oral, daily ORAL Active 2011 [facility] Alprazolam 0.5 MG Oral Tablet [Xanax] alprazolam (xanax oral), 0.5 mg, oral, at bedtime ORAL Active 2011 [facility] Alprazolam 0.25 MG Oral Tablet [Xanax] alprazolam (xanax oral), 0.25 mg, oral, every morning ORAL Active 2011 [facility] Omeprazole 20 MG Enteric Coated Capsule omeprazole (omeprazole oral), 20 mg, oral, once daily ORAL Active 2011 [facility] Metformin hydrochloride 500 MG Oral Tablet metformin (metformin oral), 500 mg, oral, twice daily ORAL Active 2011 [facility] Levothyroxine Sodium 0.025 MG Oral Tablet levothyroxine (levothyroxine oral), 25 mcg, oral, once daily ORAL Active 2011 [facility] Aspirin 81 MG Oral Tablet aspirin, 81mg, oral, daily ORAL Active 2011 [facility] Sertraline 25 MG Oral Tablet [Zoloft] sertraline (sertraline oral), 150 mg, oral, once daily ORAL Active 2011 [facility] Allergies, Adverse Reactions, Alerts Substance Category Reaction Severity Reaction type Status Date Reported Comments Source PENICILLINS Swelling SV Drug allergy (disorder ) Active 6 CAN take [facility] penicillin<s up>1</sup> Assertion Anaphylax is, Swelling, Rash Drug allergy Active CAN take [facility] Immunizations Immunization Date Given Site Status Last Updated Comments Source zoster vaccine, inactivated 8 completed Heath [facility] influenza virus vaccine, inactivated<sup>1 </sup> 6 Left Deltoid completed Grise Result Comment: [facility] [phone] [facility] NOS Influenza 5 completed Romain [facility] NOS Influenza [address] [facility] pneumococcal 13-valent vaccine [address] [facility] tetanus/diphtheri a/pertussis,acel (Tdap) 4 completed [facility] zoster vaccine live 3 completed [facility] pneumococcal 23-valent vaccine [address] [facility] Results Order Name Results Value Reference Range Date Interpretation Comments Source Chemistry Studies Estimated GFR (CKD-EPI) 59 mL/min/1.7 3m2 >=60 mL/min/1.7 3m2 06/12 [facility] Chemistry Studies Estimated CRCL (CG) 38 mL/min >=59 mL/min 06/12 Result Comment: Moderate decrease in CRCL. 30 to 59

If Estimated CRCL chronically in this range, this corresponds to Stage 3 CKD [facility] Chemistry Studies Lab Glucose 151 mg/dL 70 - 99 06/12 [facility] Chemistry Studies BUN SerPl QN 25 mg/dL 5 - 20 06/12 [facility] Chemistry Studies Anion Gap 9 mmol/L 3 - 11 06/12 [facility] Chemistry Studies Calcium Total SerPl QN 9.8 mg/dL 8.5 - 10.5 06/12 [facility] Chemistry Studies Creatinine SerPl QN 0.95 mg/dL 0.60 - 1.20 06/12 [facility] Chemistry Studies Potassium SerPl QN 3.8 mmol/L 3.5 - 5.5 06/12 [facility] Chemistry Studies CO2 SerPl QN 32 mmol/L 22 - 29 06/12 [facility] Chemistry Studies Chloride SerPl QN 99 mmol/L 98 - 108 06/12 [facility] Chemistry Studies Sodium SerPl QN 140 mmol/L 135 - 145 06/12 [facility] Hematology Studies WBC 6.5 k/cumm 3.6 - 10.6 06/12 [facility] Hematology Studies RBC 3.89 million/cu mm 3.71 - 5.17 06/12 [facility] Hematology Studies RDW 16.2 % 11.5 - 14.5 06/12 [facility] Hematology Studies Hgb 12.3 g/dL 12.0 - 15.0 06/12 [facility] Hematology Studies MCH 31.6 pg 27.0 - 34.0 06/12 [facility] Hematology Studies Hct 36.5 % 35.0 - 49.0 06/12 [facility] Hematology Studies MCHC 33.7 g/dL 32.0 - 36.0 06/12 [facility] Hematology Studies MCV 94 fL 81 - 99 06/12 [facility] Hematology Studies Platelet 272 k/cumm 150 - 450 06/12 [facility] Hematology Studies MPV 7.6 fL 7.0 - 12.0 06/12 [facility] H[facility]ology Studies Eos# 0.2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
--- OUTSIDE RECORDS SUMMARY | 2024-02-26 13:55 | XMS_ITS | Referral Summary ---
Author Organization [facility] Address Unknown Care Team Providers Care Metal Lather Name Role Phone Rosmery May I Primary Care Physician Donn Villeda Jr Primary Care Physician [phone] Encounter Michi Fernando [id number] Date(s): 01/18/17 - 02/12/[address] [address] Encounter Diagnosis Benign paroxysmal vertigo, bilateral(Discharge Diagnosis) - Unsteadiness on feet(Discharge Diagnosis) - Discharge Disposition: Routine Discharge Attending Physician: Rosmery May MD Admitting Physician: Rosmery May MD Referring Physician: Rosmery May MD Problem List Condition Effective Dates Status Health Status Inform ant Anemia(Confirmed) Active Moderate aortic stenosis(Confirmed) Active Arthritis(Confirmed) Active Arthritis of midfoot(Confirmed) Active Hematuria(Confirmed) Active Chronic diastolic heart failure(Confirmed) Active COPD (chronic obstructive pu lmonary disease)(Confirmed) Active Chronic foot ulcer(Confirmed) Active Depression(Confirmed) Active 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) Active Bony exostosis(Confirmed) Active Foot pain, right(Confirmed) Active GERD (gastroesophageal reflu x disease)(Confirmed) Active Hammertoe(Confirmed) Active HTN (hypertension)(Confirmed) Active Hypothyroidism(Confirmed) Active Ingrown right big toenail(Confirmed) Active Iron adverse reaction(Confirmed) Active 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) Active IBS (irritable bowel syndrome)(Confirmed) Active Kidney stone(Confirmed) Active EUGENIE (obstructive sleep apnea)(Confirmed) Active Onychogryphosis(Confirmed) Active Onychomycosis due to dermatophyte(Confirmed) Active Right shoulder pain(Confirmed) Active Pre-ulcerative calluses(Confirmed) Active Sleep apnea(Confirmed) Active Tailors bunion(Confirmed) Active Blister Of Toe(Confirmed) < 1/20/16 Resolved 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 Diabetic neuropathy, type II diabetes mellitus(Confirmed) Active Allergies, Adverse Reactions, Alerts Substance Reaction Severity Status penicillin 1 Anaphylaxis Swelling Rash Active 1CAN take KEFLEX Medications ALprazoLAM 0.5 mg oral tablet, extended release 0.5 mg, = 1 Tablet, Orally, BID, PRN prn anxiety, Maintenance, 11/04/15 13:28:55 EDT, Supply Start Date: 11/04/15 Status: Ordered aspirin 81 mg oral tablet 81 mg, = 1 Tablet, Orally, QHS, Maintenance, 12/07/15 13:20:01 EDT, Supply Start Date: 12/07/15 Status: Ordered atenolol 25 mg oral tablet 25 mg, = 1 Tablet, Orally, QAM, Maintenance, Dispense: 90 Tablet, Refills: 3, Total Refills: 3, 10/25/16 13:44:52 EDT, Pharmacy: [facility]/pharmacy #[id number], 1 Tablet Orally QAM Start Date: 10/25/16 Status: Ordered atorvastatin 40 mg oral tablet 40 mg, = 1 Tablet, Orally, QHS, Maintenance, Dispense: 90 Tablet, Refills: 3, Total Refills: 3, 01/28/17 11:31:19 EST, Pharmacy: [facility]/pharmacy #[id number], 1 Tablet Orally QHS, Supply Start Date: 01/28/17 Status: Ordered Cymbalta 30 mg oral delayed release capsule 30 mg, = 1 Capsule, Orally, Daily, Maintenance, 10/31/16 13:25:01 EDT Start Date: 10/31/16 Status: Ordered Ferrex-150 oral capsule See Instructions, Soft Stop, Dispense: 13 Capsule, Refills: 6, Total Refills: 6, TAKE 1 CAPSULE ORALLY 3 TIMES A WEEK FOR 30 DAYS, 10/02/16 9:00:47 EDT, Pharmacy: [facility]/pharmacy #[id number], TAKE 1 CAPSULE ORALLY 3 TIMES A WEEK FOR 30 DAYS Start Date: 10/02/16 Status: Ordered FiberCon 625 mg oral tablet 625 mg, = 1 Tablet, Orally, BID, Maintenance, takes in the afternoon and evening, 12/07/15 13:23:28EDT, Supply Start Date: 12/07/15 Status: Ordered furosemide 20 mg oral tablet See Instructions, # 60 Tablet, Refill(s) 1, Instructions: TAKE 1-2 TABLETS BY MOUTH A DAY, [id number] Start Date: 01/11/17 Status: Ordered levothyroxine 0.137 mg (137 mCg) oral tablet 137 mCg, = 1 Tablet, Orally, Daily, Maintenance, Dispense: 90 Tablet, Refills: 3, Total Refills: 3,09/13/16 12:56:01 EDT, [id number], 1 Tablet Orally Daily, Supply Start Date: 09/13/16 Status: Ordered Lidoderm 5% topical film 1 Patch, Topical, Daily, Maintenance, Dispense: 10 Patch, Refills: 0, Total Refills: 0, 10/08/16 16:59:04 EDT, [id number] Start Date: 10/08/16 Stop Date: 10/18/16 Status: Ordered losartan-hydroCHLOROthiazide 100mg-12.5mg oral tablet See Instructions, Soft Stop, Dispense: 45 Tablet, Refills: 3, Total Refills: 10, TAKE 1/2 TABLET BYMOUTH EVERY MORNING, 01/23/17 13:41:53 EST, [id number], TAKE 1/2 TABLET BY MOUTH EVERY MORNING Start Date: 01/23/17 Status: Ordered lysine 500 mg oral tablet 500 mg, = 1 Tablet, Orally, PRN for canker sore prevention, Maintenance, 10/31/16 13:26:37 EDT Start Date: 10/31/16 Status: Ordered meclizine 25 mg oral tablet 25 mg, = 1 Tablet, Orally, Daily, for 30 Days, Acute, Dispense: 30 Tablet, Refills: 1, Total Refills: 1, 01/15/17 12:43:38 EDT, 03/16/17 12:43:38 EST, [id number], 1 Tablet Orally Daily,x30 Days Start Date: 01/15/17 Stop Date: 03/16/17 Status: Ordered metFORMIN 500 mg oral tablet, extended release 500 mg, = 1 Tablet, Orally, Daily, Maintenance, Dispense: 90 Tablet, Refills: 3, Total Refills: 3, 01/16/17 11:07:33 EDT, [id number], 1 Tablet Orally Daily, Supply Start Date: 01/16/17 Status: Ordered multivitamin Multiple Vitamins oral tablet 1 Tablet, Orally, Every Afternoon, Maintenance, 12/07/15 13:22:24 EDT, Supply Start Date: 12/07/15 Status: Ordered naproxen sodium 220 mg oral capsule 220 mg, = 1 Capsule, Orally, Q12H, PRN as needed for pain, Maintenance, 10/31/16 13:22:45 EDT Start Date: 10/31/16 Status: Ordered [place] Verio Test Strips Test blood sugar 2 times daily, Other, Unscheduled, Maintenance, 60 Each, Refills: 11, Total Refills: 11, Diagnosis : E11.9, 07/10/16 16:25:11 EDT, Pharmacy: [facility]/pharmacy #[id number], Test blood sugar 2 times daily Other Unscheduled,x30 Days,Instr:Diagnosis... Start Date: 07/10/16 Stop Date: 07/05/17 Status: Ordered potassium chloride 10 mEq oral capsule, extended release 10 mEq, = 1 Capsule, Orally, Daily, Maintenance, Dispense: 30 Capsule, Refills: 11, Total Refills: 11, 11/14/16 15:03:30 EDT, Pharmacy: [facility]/pharmacy #[id number], 1 Capsule Orally Daily Start Date: 11/14/16 Status: Ordered Tylenol Extra Strength 500 mg oral tablet 1,000 mg, = 2 Tablet, Orally, QHS, PRN for pain, Maintenance, 10/31/16 13:20:02 EDT Start Date: 10/31/16 Status: Ordered urea 40% topical cream 1 Amarjit, Topical, BID, for 90 Days, Acute, Dispense: 90 GM, Refills: 4, Total Refills: 4, 10/02/16 15:19:49 EDT, 12/26/17 15:19:49 EDT, [id number] [facility] Foot&Ankle (from [id number]) in session 47, Supply Start Date: 10/02/16 Stop Date: 12/26/17 Status: Ordered Vitamin D3 1000 intl units oral capsule 1,000 IntlUnits, = 1 Capsule, Orally, Every Afternoon, Maintenance, 05/03/14 12:43:25 EST, Supply Start Date: 05/03/14 Stop Date: 09/15/14 Status: Ordered Vitamin D3 1000 units oral tablet 1,000 IntlUnits, = 1 Tablet, Orally, Daily, Maintenance, 10/31/16 13:28:59 EDT Start Date: 10/31/16 Stop Date: 11/30/16 Status: Ordered Wellbutrin XL 300 mg/24 hours oral tablet, extended release 300 mg, = 1 Tablet, Orally, QAM, Maintenance, 12/07/15 13:20:46 EDT, Supply Start Date: 12/07/15 Status: Ordered Immunizations Given and Recorded Vaccine Date Status Refusal Reason influenza virus vaccine, inactivated 1 12/20/15 Gi adin NOS Influenza 12/09/14 Recorded pneumococcal 13-valent vaccine 09/20/14 Recorded tetanus/diphtheria/pertussis,acel (Tdap) 05/01/13 Recorded zoster vaccine live 03/18/12 Recorded pneumococcal 23-valent vaccine 03/18/11 Recorded 1Result Comment: [facility] [id number] Procedures Procedure Date Related Diagnosis Body Site Status Ureteroscopy and electrohydr aulic lithotripsy of calculus of ureter 11/07/15 Completed Cataract Extraction 1 10/17/15 Com pleted Mammogram 2 01/2015 Completed Ultrasound scan of carotid 3 01/2015 Completed Echocardiogram 4 07/2014 Complete d Eye examination 06/2014 Completed Hammertoe Repair (Right) 5 05/06/14 Completed Colonoscopy Biopsy 2014 Comp leted EGD 7 2014 Completed Echocardiogram 8 06/2013 Complete d Correction, hammertoe (eg, interphalangeal fusion, partial or total phalangectomy) 9 2013 Completed right foot plate and screw removal 10 04/16/12 Completed Arthroscopic Surgery 11 2011 C ompleted Bone density scan 2011 Comp leted right foot surgery 13 2011 Com pleted Rotator Cuff Repair 14, 15 2011 Completed Bone spur 2003 Completed Arthroscopy, knee, surgical; with meniscus repair (medial AND lateral) 2001 Completed Appendectomy 16 1985 Completed Total abdominal hysterectomy (corpus and cervix), with or without removal of tube(s), with or without removal of ovary(s); 17 1985 Completed Electroshock therapy 18 1976 C ompleted Dilation and Curettage 1965 Co mpleted Tonsillectomy with adenoidectomy 194 Completed Amputation 19 Completed 1done two weeks apart, last 10/16 2Normal lifetime risk 3.3% 3Minimal atherosclerosis bilateral 4Mod 5auto-populated from documented surgical case 6IMA about 06/2014 7at [facility] approx 4.2014 8Mild , mild pulm HTN, EF 60% 9Right 4th toe 10Dr Amilcar 11shoulder 12Normal 13Arthritis growth removed 14shoulder 15Also in 2010 16at the same time as [facility] 17Total abdominal hysterectomy [id number] and 1975 for severe depression 19little toe Social History Social History Type Response Smoking Status Former Smoker; Numbe r of years: 25; Total pack years: 50; Started at age: 18.0; Stopped at age: 43; entered on: 10/31/15
--- OUTSIDE RECORDS SUMMARY | 2024-02-26 13:55 | XMS_ITS | Referral Summary ---
Author Organization [facility] Address Unknown Care Team Providers Care Shower Attendant Name Role Phone Rosmery May I Primary Care Physician Donn Villeda Jr Primary Care Physician Encounter Michi Fernando [id number] Date(s): 01/14/17 - 01/14/17 [facility] [address], [place] [address] Attending Physician: Bruce Fitzgerald DPM Admitting Physician: Bruce Fitzgerald DPM Referring Physician: None, None Problem List Condition Effective Dates Status Health [...] Tailors bunion(Confirmed) Active Blister Of Toe(Confirmed) < 04/06/15 Resolved DM type 2 with diabetic dyslipidemia(Confirmed) [...] Total Refills: 3, 10/25/16 13:44:52 EDT, Pharmacy: [facility]/pharmacy #[id number], 1 Tablet Orally QAM Start Date: 10/25/16 Status: Ordered atorvastatin 40 mg oral tablet 40 mg, 1 Tablet, Orally, QHS, Maintenance, Dispense: 30 Tablet, Refills: 5, Total Refills: 5, 02/16/16 15:04:56 EST, Pharmacy: [facility]/pharmacy #[id number], 1 Tablet Orally QHS, Supply Start Date: 02/16/16 Status: Ordered Cymbalta 30 mg oral delayed release capsule 30 mg, = 1 Capsule, Orally, Daily, Maintenance, 10/31/16 13:25:01 EDT Start Date: 10/31/16 Status: Ordered Ferrex-150 oral capsule See Instructions, Soft Stop, Dispense: 13 Capsule, Refills: 6, Total Refills: 6, TAKE 1 CAPSULE ORALLY 3 TIMES A WEEK FOR 30 DAYS, 10/02/16 9:00:47 EDT, Pharmacy: [facility]/pharmacy #[id number], TAKE 1 CAPSULE ORALLY [...] 1-2 TABLETS BY MOUTH A DAY, Pharmacy: [facility]/pharmacy #[id number] Start Date: 01/11/17 Status: Ordered levothyroxine 0.137 mg (137 mCg) oral tablet 137 mCg, = 1 Tablet, Orally, Daily, Maintenance, Dispense: 90 Tablet, Refills: 3, Total Refills: 3,09/13/16 12:56:01 EDT, [id number], 1 Tablet Orally Daily, Supply Start Date: 09/13/16 Status: Ordered Lidoderm 5% topical film 1 Patch, Topical, Daily, Maintenance, Dispense: 10 Patch, Refills: 0, Total Refills: 0, 10/08/16 16:59:04 EDT, [id number] Start Date: 10/08/16 Stop Date: 10/18/16 Status: Ordered losartan-hydrochlorothiazide 100mg-12.5mg oral tablet See Instructions, Maintenance, Dispense: 15 Tablet, Refills: 11, Total Refills: 3, 1/2 Tablet Orally QAM, 01/18/16 11:54:58 EDT, [id number], 1/2 Tablet Orally QAM, Supply Start Date: 01/18/16 Status: Ordered lysine 500 mg oral tablet 500 mg, = 1 Tablet, Orally, PRN for canker sore prevention, Maintenance, 10/31/16 13:26:37 EDT Start Date: 10/31/16 Status: Ordered meclizine 25 mg oral tablet 25 mg, = 1 Tablet, Orally, Daily, for 30 Days, Acute, Dispense: 30 Tablet, Refills: 1, Total Refills: 1, 01/15/17 12:43:38 EDT, 03/16/17 12:43:38 EST, [id number], 1 Tablet Orally Daily,x30 Days Start Date: 01/15/17 Stop Date: 03/16/17 Status: Ordered metFORMIN 500 mg oral tablet, extended release 500 mg, = 1 Tablet, Orally, Daily, Maintenance, Dispense: 90 Tablet, Refills: 3, Total Refills: 3, 08/14/16 15:34:05 EDT, [id number], 1 Tablet Orally Daily,x90 Days, Supply Start Date: 08/14/16 Stop Date: 08/09/17 Status: Ordered multivitamin Multiple Vitamins oral tablet 1 Tablet, Orally, Every Afternoon, Maintenance, 12/07/15 13:22:24 EDT, Supply Start Date: 12/07/15 Status: Ordered naproxen sodium 220 mg oral capsule 220 mg, = 1 Capsule, Orally, Q12H, PRN as needed for pain, Maintenance, 10/31/16 13:22:45 EDT Start Date: 10/31/16 Status: Ordered OneTouch Verio Test Strips Test blood sugar 2 times daily, Other, Unscheduled, Maintenance, 60 Each, Refills: 11, Total Refills: 11, Diagnosis : E11.9, 07/10/16 16:25:11 EDT, Pharmacy: [facility]/pharmacy #[id number], Test blood sugar 2 times daily Other Unscheduled,x30 Days,Instr:Diagnosis... Start Date: 07/10/16 Stop Date: 07/05/17 Status: Ordered potassium chloride 10 mEq oral capsule, extended release 10 mEq, = 1 Capsule, Orally, Daily, Maintenance, Dispense: 30 Capsule, Refills: 11, Total Refills: 11, 11/14/16 15:03:30 EDT, [id number], 1 Capsule Orally Daily Start Date: 11/14/16 Status: Ordered Tylenol Extra Strength 500 mg oral tablet 1,000 mg, = 2 Tablet, Orally, QHS, PRN for pain, Maintenance, 10/31/16 13:20:02 EDT Start Date: 10/31/16 Status: Ordered urea 40% topical cream 1 Amarjit, Topical, BID, for 90 Days, Acute, Dispense: 90 GM, Refills: 4, Total Refills: 4, 10/02/16 15:19:49 EDT, 12/26/17 15:19:49 EDT, [id number] [facility] Foot&Ankle (from [id number]) in session 47, Supply Start Date: 10/02/16 [...] pneumococcal 23-valent vaccine 03/18/11 Recorded 1Result Comment: [facility] [id number] Procedures Procedure Date Related Diagnosis Body Site Status Ureteroscopy and electrohydr aulic lithotripsy of calculus of ureter 11/07/15 Completed Cataract Extraction 1 10/17/15 Com pleted Mammogram 2 01/2015 Completed Ultrasound scan of carotid 3 01/2015 Completed Echocardiogram 4 07/2014 Complete d Eye examination 06/2014 Completed Hammertoe Repair (Right) 5 05/06/14 Completed Colonoscopy Biopsy 6 2014 Comp leted EGD 7 2014 Completed Echocardiogram 8 06/2013 Complete d Correction, hammertoe (eg, interphalangeal fusion, partial or total phalangectomy) 9 2013 Completed right foot plate and screw removal 10 04/16/12 Completed Arthroscopic Surgery 11 2011 C ompleted Bone density scan 12 2011 Comp leted right foot surgery 13 [...] Curettage 1965 Co mpleted Tonsillectomy with adenoidectomy 1944 Completed Amputation 19 Completed 1done two weeks apart, last 10/16 2Normal lifetime risk 3.3% 3Minimal atherosclerosis bilateral 4Mod 5auto-populated from documented surgical case 6IMA about 06/2014 7at [facility] approx 4.2014 8Mild , mild pulm HTN, EF 60% 9Right 4th toe 10Dr [place] 11shoulder 12Normal 13Arthritis growth removed 14shoulder 15Also in 2010 16at the same time as [facility] 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
--- OUTSIDE RECORDS SUMMARY | 2024-02-26 13:55 | XMS_ITS | Referral Summary ---
Author Organization [facility] Address Unknown Care Team Providers Care Admittance Attendant Name Role Phone Rosmery May I Primary Care Physician [phone] Donn Villeda Jr Primary Care Physician [phone] Encounter Michi Fernando [id number] Date(s): 05/21/17 - 05/21/17 [facility] [address], [place] [address] Encounter Diagnosis Diabetic neuropathy, type II diabetes mellitus(Discharge Diagnosis) - 05/21/17 Onychomycosis due to dermatophyte(Discharge Diagnosis) - 05/21/17 Onychogryphosis(Discharge Diagnosis) - 05/21/17 Pre-ulcerative calluses(Discharge Diagnosis) - 05/21/17 Attending Physician: Bruce Fitzgerald DPM Admitting Physician: Bruce Fitzgerald DPM Referring Physician: None, None Vital Signs Most recent to oldest [Reference Range]: 1 Heart Rate [60-100 bpm] 70 bpm (05/21/17 11:32 AM) Blood Pressure [90-140/60-90 mmHg] 110/6 1mmHg (05/21/17 11:32 AM) Mean Arterial Pressure #1 Calculated 77 mmHg (05/21/17 11:32 AM) BP Site #1 Arm, Lower Left (05/21/17 11:32 AM) Method BP #1 Automatic/Non Invasi ve (05/21/17 11:32 AM) Height CM 154 cm (05/21/17 11:32 AM) Weight KG 98 kg (05/21/17 11:32 AM) BSAM2 Weight in kg 2.05 m2 (05/21/17 11:32 AM) BMI Weight in kg 41.3 kg/m2 (05/21/17 11:32 AM) [place] Body Weight 46.95 kg (05/21/17 11:32 AM) Problem List Condition Effective Dates Status Health Status Inform ant Anemia(Confirmed) Active Moderate aortic stenosis(Confirmed) Active Arthritis(Confirmed) Active Arthritis of midfoot(Confirmed) Active Hematuria(Confirmed) Active Carpal tunnel syndrome, bilateral(Confirmed) Active Left carpal tunnel syndrome(Confirmed) Active Right carpal tunnel syndrome(Confirmed) Active Chronic diastolic heart failure(Confirmed) Active COPD (chronic obstructive pu lmonary disease)(Confirmed) Active Chronic foot ulcer(Confirmed) Active Osteoarthritis of left thumb(Confirmed) Active Osteoarthritis of right thumb(Confirmed) Active Depression(Confirmed) Active 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) Active Bony exostosis(Confirmed) Active Fatigue(Confirmed) Active Left foot pain(Confirmed) Active Foot pain, right(Confirmed) Active GERD (gastroesophageal reflu x disease)(Confirmed) Active Hallux abductovalgus with bunions(Confirmed) Active Hammertoe(Confirmed) Active HTN (hypertension)(Confirmed) Active Hypothyroidism(Confirmed) [...] Diabetic neuropathy, type II diabetes mellitus(Confirmed) Active Diagnosis Diagnosis Type Effective Dates Health Status Clinical Service Informant Onychogryphosis Discharge Diagnosis 05/21/17 Non-Specified Diabetic neuropathy, type II diabetes mellitus Discharge Diagnosis 05/21/17 Non-Specified Onychomycosis due to dermatophyte Discharge Diagnosis 05/21/17 Non-Specified Pre-ulcerative calluses Discharge Diagnosis 05/21/17 Non-Specified Allergies, Adverse Reactions, Alerts Substance Reaction Severity Status penicillin 1 Anaphylaxis Swelling Rash Active 1CAN take KEFLEX Medications allopurinol 100 mg oral tablet 100 mg, = 1 Tablet, Orally, Daily, Maintenance, Dispense: 30 Tablet, Refills: 2, Total Refills: 2, 04/26/17 12:58:29 EST, Pharmacy: [id number], 1 Tablet Orally Daily Start Date: 04/26/17 Status: Ordered ALprazoLAM 0.5 mg oral tablet, extended release [...] 90 Tablet, Refills: 3, Total Refills: 3, 02/20/17 15:16:36 EST, [id number], 1 Tablet Orally QAM Start Date: 02/20/17 Status: Ordered atorvastatin 40 mg oral tablet 40 mg, = 1 Tablet, Orally, QHS, Maintenance, Dispense: 90 Tablet, Refills: 3, Total Refills: 3, 01/28/17 11:31:19 EST, [id number], 1 Tablet Orally QHS, Supply Start Date: 01/28/17 Status: Ordered Cymbalta 30 mg oral delayed release capsule 60 mg, = 2 Capsule, Orally, Daily, Maintenance, dose needs clarified - rx by Dr. Reeves, 10/31/16 13:25:01 EDT Start Date: 10/31/16 Status: Ordered Ferrex-150 oral capsule See Instructions, Soft Stop, Dispense: 13 Capsule, Refills: 6, Total Refills: 6, TAKE 1 CAPSULE ORALLY 3 TIMES A WEEK FOR 30 DAYS, 05/10/17 13:52:10 EST, [id number], TAKE 1 CAPSULE ORALLY 3 TIMES A WEEK FOR 30 DAYS Start Date: 05/10/17 Status: Ordered FiberCon 625 mg oral tablet 625 mg, = 1 Tablet, Orally, BID, Maintenance, takes in the afternoon and evening, 12/07/15 13:23:28EDT, Supply Start Date: 12/07/15 Status: Ordered furosemide 20 mg oral tablet See Instructions, # 60 Tablet, Refill(s) 1, Instructions: TAKE 1-2 TABLETS BY MOUTH A DAY, Pharmacy: [facility] #[id number] Start Date: 05/06/17 Status: Ordered levothyroxine 0.137 mg (137 mCg) oral tablet 137 mCg, = 1 Tablet, Orally, Daily, Maintenance, Dispense: 90 Tablet, Refills: 3, Total Refills: 3,09/13/16 12:56:01 EDT, Pharmacy: [facility]/pharmacy #[id number], 1 Tablet Orally Daily, Supply Start Date: 09/13/16 Status: Ordered losartan-hydroCHLOROthiazide 100mg-12.5mg oral tablet See Instructions, Soft Stop, Dispense: 45 Tablet, Refills: 3, Total Refills: 10, TAKE 1/2 TABLET BYMOUTH EVERY MORNING, 01/23/17 13:41:53 EST, Pharmacy: [facility]/pharmacy #[id number], TAKE 1/2 TABLET BY MOUTH EVERY MORNING Start Date: 01/23/17 Status: Ordered lysine 500 mg oral tablet 500 mg, = 1 Tablet, Orally, PRN for canker sore prevention, Maintenance, 10/31/16 13:26:37 EDT Start Date: 10/31/16 Status: Ordered metFORMIN 500 mg oral tablet, extended release 500 mg, = 1 Tablet, Orally, Daily, Maintenance, Dispense: 90 Tablet, Refills: 3, Total Refills: 3, 01/16/17 11:07:33 EDT, [id number], 1 Tablet Orally Daily, Supply Start Date: 01/16/17 Status: Ordered multivitamin Multiple Vitamins oral tablet 1 Tablet, Orally, Every Afternoon, Maintenance, 12/07/15 13:22:24 EDT, Supply Start Date: 12/07/15 Status: Ordered iFollouch Verio Test Strips Test blood sugar 2 times daily, Other, Unscheduled, Maintenance, 60 Each, Refills: 11, Total Refills: 11, Diagnosis : E11.9, 07/10/16 16:25:11 EDT, Pharmacy: [facility]/pharmacy #[id number], Test blood sugar 2 times daily Other Unscheduled,x30 Days,Instr:Diagnosis... Start Date: 07/10/16 Stop Date: 07/05/17 Status: Ordered potassium chloride 10 mEq oral capsule, extended release 10 mEq, = 1 Capsule, Orally, Daily, Maintenance, Dispense: 30 Capsule, Refills: 11, Total Refills: 11, 11/14/16 15:03:30 EDT, Pharmacy: [facility]/pharmacy #[id number], 1 Capsule Orally Daily Start Date: 11/14/16 Status: Ordered Tylenol Extra Strength 500 mg oral tablet 1,000 mg, = 2 Tablet, Orally, QHS, PRN for pain, Maintenance, 10/31/16 13:20:02 EDT Start Date: 10/31/16 Status: Ordered urea 40% topical cream 1 Amarjit, Topical, BID, for 90 Days, Acute, Dispense: 90 GM, Refills: 4, Total Refills: 4, 10/02/16 15:19:49 EDT, 12/26/17 15:19:49 EDT, [id number] [facility] Foot[facility] (from [id number]) in session 47, Supply Start Date: 10/02/16 Stop Date: 12/26/17 Status: Ordered Vitamin D3 1000 units oral [...] pneumococcal 23-valent vaccine 03/18/11 Recorded 1Result Comment: [facility] [id number] Procedures Procedure Date Related Diagnosis Body Site Status Ureteroscopy and electrohydr aulic lithotripsy of calculus of ureter 11/07/15 Completed Cataract Extraction 1 10/17/15 Com pleted Mammogram 2 01/2015 Completed Ultrasound scan of carotid 3 01/2015 Completed Echocardiogram 4 07/2014 Complete d Eye examination 06/2014 Completed Hammertoe Repair (Right) 5 05/06/14 Completed Colonoscopy Biopsy 2014 Comp leted EGD 2014 Completed Echocardiogram 8 06/2013 Complete d Correction, hammertoe (eg, interphalangeal fusion, partial or total phalangectomy) 2013 Completed right foot plate and screw [...] 18 1976 C ompleted Dilation and Curettage 1964 Co mpleted Tonsillectomy with adenoidectomy 1944 Completed Amputation 19 Completed 1done two weeks apart, last 10/16 2Normal lifetime risk 3.3% 3Minimal atherosclerosis bilateral 4Mod 5auto-populated from documented surgical case 6IMA about 06/2014 7at [facility] approx .2014 8Mild , mild pulm HTN, EF 60% 9Right 4th toe 10Dr [place] 11shoulder 12Normal 13Arthritis growth removed 14shoulder 15Also in 2010 16at the same time as [facility] 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
--- OUTSIDE RECORDS SUMMARY | 2024-02-26 13:55 | XMS_ITS | Referral Summary ---
Author Organization [facility] Address Unknown Care Team Providers Care Customer Quality Specialist Name Role Phone Rosmery May I Primary Care Physician Donn Villeda Jr Primary Care Physician Encounter Michi Fin 0 Date(s): 04/22/17 - 04/22/17 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 Bony exostosis(Confirmed) Active Left foot pain(Confirmed) Active Foot pain, [...] Total Refills: 3, 02/20/17 15:16:36 EST, [id number], 1 Tablet Orally QAM Start Date: 02/20/17 Status: Ordered atorvastatin 40 mg oral tablet 40 mg, = 1 Tablet, Orally, QHS, Maintenance, Dispense: 90 Tablet, Refills: 3, Total Refills: 3, 01/28/17 11:31:19 EST, [id number], 1 Tablet Orally QHS, Supply Start Date: 01/28/17 Status: Ordered Cymbalta 30 mg oral delayed release capsule 30 mg, = 1 Capsule, Orally, Daily, Maintenance, dose needs clarified - rx by Dr. Reeves, 10/31/16 13:25:01 EDT Start Date: 10/31/16 Status: Ordered Ferrex-150 oral capsule See Instructions, Soft Stop, Dispense: 13 Capsule, Refills: 6, Total Refills: 6, TAKE 1 CAPSULE ORALLY 3 TIMES A WEEK FOR 30 DAYS, 10/02/16 9:00:47 EDT, [id number], TAKE 1 CAPSULE ORALLY 3 [...] 1-2 TABLETS BY MOUTH A DAY, Pharmacy: [facility] #[id number] Start Date: 03/08/17 Status: Ordered levothyroxine 0.137 mg (137 mCg) oral tablet 137 mCg, = 1 Tablet, Orally, Daily, Maintenance, Dispense: 90 Tablet, Refills: 3, Total Refills: 3,09/13/16 12:56:01 EDT, Pharmacy: [facility]/pharmacy #[id number], 1 Tablet Orally Daily, Supply Start Date: 09/13/16 Status: Ordered losartan-hydroCHLOROthiazide 100mg-12.5mg oral tablet See Instructions, Soft Stop, Dispense: 45 Tablet, Refills: 3, Total Refills: 10, TAKE 1/2 TABLET BYMOUTH EVERY MORNING, 01/23/17 13:41:53 EST, Pharmacy: [facility]/pharmacy #[id number], TAKE 1/2 TABLET BY MOUTH EVERY [...] Total Refills: 3, 01/16/17 11:07:33 EDT, Pharmacy: [facility]/pharmacy #[id number], 1 Tablet Orally Daily, Supply Start Date: 01/16/17 Status: Ordered multivitamin Multiple Vitamins oral tablet 1 Tablet, Orally, Every Afternoon, Maintenance, 12/07/15 13:22:24 EDT, Supply Start Date: 12/07/15 Status: Ordered OneTouch Verio Test Strips Test blood sugar 2 times daily, Other, Unscheduled, Maintenance, 60 Each, Refills: 11, Total Refills: 11, Diagnosis : E11.9, 07/10/16 16:25:11 EDT, Pharmacy: [facility]/pharmacy #[id number], Test blood sugar 2 times daily Other Unscheduled,x30 Days,Instr:Diagnosis... Start Date: 07/10/16 Stop Date: 07/05/17 Status: Ordered potassium chloride 10 mEq oral capsule, extended release 10 mEq, = 1 Capsule, Orally, Daily, Maintenance, Dispense: 30 Capsule, Refills: 11, Total Refills: 11, 11/14/16 15:03:30 EDT, Pharmacy: [facility]/pharmacy #[id number], 1 Capsule Orally Daily Start Date: 11/14/16 Status: Ordered Tylenol Extra Strength 500 mg oral tablet 1,000 mg, = 2 Tablet, Orally, QHS, PRN for pain, Maintenance, 10/31/16 13:20:02 EDT Start Date: 10/31/16 Status: Ordered urea 40% topical cream 1 Amarjit, Topical, BID, for 90 Days, Acute, Dispense: 90 GM, Refills: 4, Total Refills: 4, 10/02/16 15:19:49 EDT, 12/26/17 15:19:49 EDT, [id number] [facility]kle (from [id number]) in session 47, Supply Start Date: 10/02/16 [...] pneumococcal 23-valent vaccine 03/18/11 Recorded 1Result Comment: [facility] [id number] Procedures Procedure Date Related Diagnosis Body Site [...] HTN, EF 60% 9Right 4th toe 10Dr [place] 11shoulder 12Normal 13Arthritis growth removed 14shoulder 15Also in 2010 16at the same time as [facility] 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
--- OUTSIDE RECORDS SUMMARY | 2024-02-26 13:55 | XMS_ITS | Referral Summary ---
Author Organization [facility] Address Unknown Care Team Providers Care Executive Staff Assistant Name Role Phone Rosmery May I Primary Care Physician [phone] Donn Villeda Jr Primary Care Physician [phone] Encounter Clarian Fin 0 Date(s): 04/22/17 - 04/22/17 [facility] [address] [place] [address]- [phone] Problem List Condition Effective Dates Status Health [...] Total Refills: 3, 02/20/17 15:16:36 EST, [id number], 1 Tablet Orally QAM Start Date: 02/20/17 Status: Ordered atorvastatin 40 mg oral tablet 40 mg, = 1 Tablet, Orally, QHS, Maintenance, Dispense: 90 Tablet, Refills: 3, Total Refills: 3, 01/28/17 11:31:19 EST, [id number], 1 Tablet Orally QHS, [...] FOR 30 DAYS, 10/02/16 9:00:47 EDT, [id number], TAKE 1 CAPSULE ORALLY [...] 1-2 TABLETS BY MOUTH A DAY, Pharmacy: [facility] #[id number] Start Date: 03/08/17 Status: Ordered levothyroxine 0.137 mg (137 mCg) oral tablet 137 mCg, = 1 Tablet, Orally, Daily, Maintenance, Dispense: 90 Tablet, Refills: 3, Total Refills: 3,09/13/16 12:56:01 EDT, Pharmacy: [facility]/pharmacy #[id number], 1 Tablet Orally Daily, Supply Start Date: 09/13/16 Status: Ordered losartan-hydroCHLOROthiazide 100mg-12.5mg oral tablet See Instructions, Soft Stop, Dispense: 45 Tablet, Refills: 3, Total Refills: 10, TAKE 1/2 TABLET BYMOUTH EVERY MORNING, 01/23/17 13:41:53 EST, Pharmacy: [facility]/pharmacy #[id number], TAKE 1/2 TABLET BY MOUTH EVERY [...] Total Refills: 3, 01/16/17 11:07:33 EDT, Pharmacy: [facility] #[id number], 1 Tablet Orally Daily, Supply Start Date: 01/16/17 Status: Ordered multivitamin Multiple Vitamins oral tablet 1 Tablet, Orally, Every Afternoon, Maintenance, 12/07/15 13:22:24 EDT, Supply Start Date: 12/07/15 Status: Ordered OneTouch Verio Test Strips Test blood sugar 2 times daily, Other, Unscheduled, Maintenance, 60 Each, Refills: 11, Total Refills: 11, Diagnosis : E11.9, 07/10/16 16:25:11 EDT, Pharmacy: [facility]/pharm[facility] #[id number], Test blood sugar 2 times daily Other Unscheduled,x30 Days,Instr:Diagnosis... Start Date: 07/10/16 Stop Date: 07/05/17 Status: Ordered potassium chloride 10 mEq oral capsule, extended release 10 mEq, = 1 Capsule, Orally, Daily, Maintenance, Dispense: 30 Capsule, Refills: 11, Total Refills: 11, 11/14/16 15:03:30 EDT, Pharmacy: [facility]/pharmacy #[id number], 1 Capsule Orally Daily Start Date: 11/14/16 Status: Ordered Tylenol Extra Strength 500 mg oral tablet 1,000 mg, = 2 Tablet, Orally, QHS, PRN for pain, Maintenance, 10/31/16 13:20:02 EDT Start Date: 10/31/16 Status: Ordered urea 40% topical cream 1 Amarjit, Topical, BID, for 90 Days, Acute, Dispense: 90 GM, Refills: 4, Total Refills: 4, 10/02/16 15:19:49 EDT, 12/26/17 15:19:49 EDT, [id number] [facility] (from [id number]) in session 47, Supply Start Date: 10/02/16 [...] pneumococcal 23-valent vaccine 03/18/11 Recorded 1Result Comment: [facility] [id number] Procedures Procedure Date Related Diagnosis Body Site [...] HTN, EF 60% 9Right 4th toe 10Dr [place] 11shoulder 12Normal 13Arthritis growth removed 14shoulder 15Also in 2010 16at the same time as [facility] 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
--- OUTSIDE RECORDS SUMMARY | 2024-02-26 13:55 | XMS_ITS | Referral Summary ---
Author Organization [facility] Address Unknown Care Team Providers Care Devulcanizer Head Name Role Phone Rosmery May I Primary Care Physician [phone] Donn Villeda Jr Primary Care Physician Encounter Michi Fernando [id number] Date(s): 03/12/17 - 03/12/17 [facility] [address], [place] [address] Encounter Diagnosis Diabetic neuropathy, type II diabetes mellitus(Discharge Diagnosis) - 03/12/17 Pre-ulcerative calluses(Discharge Diagnosis) - 03/12/17 Onychomycosis due to dermatophyte(Discharge Diagnosis) - 03/12/17 Onychogryphosis(Discharge Diagnosis) - 03/12/17 Attending Physician: Bruce Fitzgerald DPM Admitting Physician: Bruce Fitzgerald DPM Referring Physician: None, None Vital Signs Most recent to oldest [Reference Range]: 1 Heart Rate [60-100 bpm] 64 bpm (03/12/17 10:51 AM) Blood Pressure [90-140/60-90 mmHg] 150/7 8mmHg *HI* (03/12/17 10:51 AM) Mean Arterial Pressure #1 Calculated 102 mmHg (03/12/17 10:51 AM) Height CM 154 cm (03/12/17 10:51 AM) Calculated Height (in) 60.6 Inches (03/12/17 10:51 AM) Weight KG 97.8 kg (03/12/17 10:51 AM) Calculated Weight (lbs) 215.2 lb (03/12/17 10:51 AM) BSAM2 Weight in kg 2.05 m2 (03/12/17 10:51 AM) BMI Weight in kg 41.2 kg/m2 (03/12/17 10:51 AM) [place] Body Weight 46.95 kg (03/12/17 10:51 AM) Problem List Condition Effective Dates Status [...] Effective Dates Health Status Clinical Service Informant Diabetic neuropathy, type II diabetes mellitus Discharge Diagnosis 03/12/17 Non-Specified Pre-ulcerative calluses Discharge Diagnosis 03/12/17 Non-Specified Onychomycosis due to dermatophyte Discharge Diagnosis 03/12/17 Non-Specified Onychogryphosis Discharge Diagnosis 03/12/17 Non-Specified Allergies, Adverse Reactions, Alerts Substance Reaction [...] Total Refills: 3, 02/20/17 15:16:36 EST, [id number] 1 Tablet Orally QAM Start Date: 02/20/17 Status: Ordered atorvastatin 40 mg oral tablet 40 mg, = 1 Tablet, Orally, QHS, Maintenance, Dispense: 90 Tablet, Refills: 3, Total Refills: 3, 01/28/17 11:31:19 EST, [id number], 1 Tablet Orally QHS, [...] FOR 30 DAYS, 10/02/16 9:00:47 EDT, [id number], TAKE 1 CAPSULE ORALLY [...] 1-2 TABLETS BY MOUTH A DAY, Pharmacy: [facility]/pharm[facility] #[id number] Start Date: 03/08/17 Status: Ordered levothyroxine 0.137 mg (137 mCg) oral tablet 137 mCg, = 1 Tablet, Orally, Daily, Maintenance, Dispense: 90 Tablet, Refills: 3, Total Refills: 3,09/13/16 12:56:01 EDT, Pharmacy: [facility]/pharmacy #[id number], 1 Tablet Orally Daily, Supply Start Date: 09/13/16 Status: Ordered Lidoderm 5% topical film 1 Patch, Topical, Daily, Maintenance, Dispense: 10 Patch, Refills: 0, Total Refills: 0, 10/08/16 16:59:04 EDT, [id number] Start Date: 10/08/16 Stop Date: 10/18/16 Status: Ordered losartan-hydroCHLOROthiazide 100mg-12.5mg oral tablet See Instructions, Soft Stop, Dispense: 45 Tablet, Refills: 3, Total Refills: 10, TAKE 1/2 TABLET BYMOUTH EVERY MORNING, 01/23/17 13:41:53 EST, [id number], TAKE 1/2 TABLET BY MOUTH EVERY [...] 01/15/17 12:43:38 EDT, 03/16/17 12:43:38 EST, [id number], 1 Tablet Orally Daily,x30 Days Start Date: 01/15/17 Stop Date: 03/16/17 Status: Ordered metFORMIN 500 mg oral tablet, extended release 500 mg, = 1 Tablet, Orally, Daily, Maintenance, Dispense: 90 Tablet, Refills: 3, Total Refills: 3, 01/16/17 11:07:33 EDT, Pharmacy: [facility]/pharmacy #[id number], 1 Tablet Orally Daily, Supply [...] Diagnosis : E11.9, 07/10/16 16:25:11 EDT, Pharmacy: [facility]/pharmacy #[id number], Test blood sugar 2 times daily Other Unscheduled,x30 Days,Instr:Diagnosis... Start Date: 07/10/16 Stop Date: 07/05/17 Status: Ordered potassium chloride 10 mEq oral capsule, extended release 10 mEq, = 1 Capsule, Orally, Daily, Maintenance, Dispense: 30 Capsule, Refills: 11, Total Refills: 11, 11/14/16 15:03:30 EDT, Pharmacy: [facility]/pharmacy #[id number], 1 Capsule Orally Daily Start Date: 11/14/16 Status: Ordered Tylenol Extra Strength 500 mg oral tablet 1,000 mg, = 2 Tablet, Orally, QHS, PRN for pain, Maintenance, 10/31/16 13:20:02 EDT Start Date: 10/31/16 Status: Ordered urea 40% topical cream 1 Amarjit, Topical, BID, for 90 Days, Acute, Dispense: 90 GM, Refills: 4, Total Refills: 4, 10/02/16 15:19:49 EDT, 12/26/17 15:19:49 EDT, [id number] [facility] Foot&Ankle (from [id number]) in session 47, Supply Start Date: 10/02/16 [...] pneumococcal 23-valent vaccine 03/18/11 Recorded 1Result Comment: [facility] [id number] Procedures Procedure Date Related Diagnosis Body Site [...] HTN, EF 60% 9Right 4th toe 10Dr [place] 11shoulder 12Normal 13Arthritis growth removed 14shoulder 15Also in 2010 16at the [facility] time as [facility] 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
--- OUTSIDE RECORDS SUMMARY | 2024-02-26 13:56 | XMS_ITS | Referral Summary ---
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) - 06/12/17 Chronic diastolic heart failure(Discharge Diagnosis) - 06/12/17 COPD (chronic obstructive pulmonary disease)(Discharge Diagnosis) - 06/12/17 GERD (gastroesophageal reflux disease)(Discharge Diagnosis) - 06/12/17 Hypothyroidism(Discharge Diagnosis) - 06/12/17 EUGENIE (obstructive sleep apnea)(Discharge Diagnosis) - 06/12/17 Sleep apnea(Discharge Diagnosis) - 06/12/17 Osteoarthritis of right thumb(Discharge Diagnosis) - 06/12/17 Right carpal tunnel syndrome(Discharge Diagnosis) - 06/12/17 Attending Physician: Govind Gann III, MD Admitting Physician: Govind Gann III, MD Referring Physician: None, None Problem List Condition Effective Dates Status Health Status Inform ant Anemia(Confirmed) Active Moderate aortic stenosis(Confirmed) Active Arthritis(Confirmed) Active Arthritis of carpometacarpal (CMC) joint of right thumb(Confirmed) Active Arthritis of midfoot(Confirmed) Active Hematuria(Confirmed) Active Carpal tunnel syndrome, bilateral(Confirmed) Active Left carpal tunnel syndrome(Confirmed) Active Right carpal tunnel syndrome(Confirmed) Active Right carpal tunnel [...] Effective Dates Health Status Clinical Service Informant Osteoarthritis of right thumb Discharge Diagnosis 06/12/17 Non-Specified Sleep apnea Discharge Diagnosis 06/12/17 Non-Specified Right carpal tunnel syndrome Discharge Diagnosis 06/12/17 Non-Specified COPD (chronic obstructive pulmonary disease) Discharge Diagnosis 06/12/17 Non-Specified Chronic diastolic heart failure Discharge Diagnosis 06/12/17 Non-Specified GERD (gastroesophageal reflux disease) Discharge Diagnosis 06/12/17 Non-Specified EUGENIE (obstructive sleep apnea) Discharge Diagnosis 06/12/17 Non-Specified Hypothyroidism Discharge Diagnosis 06/12/17 Non-Specified HTN (hypertension) Discharge Diagnosis 06/12/17 Non-Specified 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 Discharge Diagnosis 06/12/17 Non-Specified DM type 2 with diabetic dyslipidemia Discharge Diagnosis 06/12/17 Non-Specified Allergies, Adverse Reactions, Alerts Substance Reaction Severity Status penicillin 1 Anaphylaxis Swelling Rash Active 1CAN take KEFLEX Medications allopurinol 100 mg oral tablet 100 mg, = 1 Tablet, Orally, Daily, Maintenance, Dispense: 30 Tablet, Refills: 2, Total Refills: 2, 04/26/17 12:58:29 EST, [id number], 1 Tablet Orally Daily Start Date: 04/26/17 [...] Total Refills: 3, 02/20/17 15:16:36 EST, [id number], 1 Tablet Orally QAM Start Date: 02/20/17 Status: Ordered atorvastatin 40 mg oral tablet 40 mg, = 1 Tablet, Orally, QHS, Maintenance, Dispense: 90 Tablet, Refills: 3, Total Refills: 3, 01/28/17 11:31:19 EST, [id number], 1 Tablet Orally QHS, [...] FOR 30 DAYS, 05/10/17 13:52:10 EST, Pharmacy: [facility]/pharmacy #[id number], TAKE 1 CAPSULE ORALLY 3 TIMES [...] 1-2 TABLETS BY MOUTH A DAY, Pharmacy: [facility]/pharmacy #[id number] Start Date: 05/06/17 Status: Ordered levothyroxine 0.137 mg (137 mCg) oral tablet 137 mCg, = 1 Tablet, Orally, Daily, Maintenance, Dispense: 90 Tablet, Refills: 3, Total Refills: 3,09/13/16 12:56:01 EDT, [id number], 1 Tablet Orally Daily, Supply Start Date: 09/13/16 Status: Ordered losartan-hydroCHLOROthiazide 100mg-12.5mg oral tablet See Instructions, Soft Stop, Dispense: 45 Tablet, Refills: 3, Total Refills: 10, TAKE 1/2 TABLET BYMOUTH EVERY MORNING, 01/23/17 13:41:53 EST, [id number], TAKE 1/2 TABLET BY [...] Refills: 3, 01/16/17 11:07:33 EDT, [id number], 1 Tablet Orally Daily, Supply Start Date: 01/16/17 Status: Ordered multivitamin Multiple Vitamins oral tablet 1 Tablet, Orally, Every Afternoon, Maintenance, 12/07/15 13:22:24 EDT, Supply Start Date: 12/07/15 Status: Ordered OneTouch Verio Test Strips Test blood sugar 2 times daily, Other, Unscheduled, Maintenance, 60 Each, Refills: 11, Total Refills: 11, Diagnosis : E11.9, 07/10/16 16:25:11 EDT, Pharmacy: [facility]/pharmacy #[id number], Test blood sugar 2 times daily Other Unscheduled,x30 Days,Instr:Diagnosis... Start Date: 07/10/16 Stop Date: 07/05/17 Status: Ordered potassium chloride 10 mEq oral capsule, extended release 10 mEq, = 1 Capsule, Orally, Daily, Maintenance, Dispense: 30 Capsule, Refills: 11, Total Refills: 11, 11/14/16 15:03:30 EDT, Pharmacy: [facility]/pharmacy #[id number], 1 Capsule Orally Daily Start Date: 11/14/16 Status: Ordered Tylenol Extra Strength 500 mg oral tablet 1,000 mg, = 2 Tablet, Orally, QHS, PRN for pain, Maintenance, 10/31/16 13:20:02 EDT Start Date: 10/31/16 Status: Ordered urea 40% topical cream 1 Amarjit, Topical, BID, for 90 Days, Acute, Dispense: 90 GM, Refills: 4, Total Refills: 4, 10/02/16 15:19:49 EDT, 12/26/17 15:19:49 EDT, [id number] [place] Foot&Ankle (from [id number]) in session 47, Supply Start Date: 10/02/16 Stop Date: 12/26/17 Status: Ordered Vitamin D3 1000 units oral tablet 1,000 IntlUnits, = 1 Tablet, Orally, Daily, Maintenance, 10/31/16 13:28:59 EDT Start Date: 10/31/16 Stop Date: 11/30/16 Status: Ordered Wellbutrin XL 300 mg/24 hours oral tablet, extended release 300 mg, = 1 Tablet, Orally, QAM, Maintenance, 12/07/15 13:20:46 EDT, Supply Start Date: 12/07/15 Status: Ordered Results Hematology Studies Most recent to oldest [Reference Range]: 1 WBC [3.6-10.6 k/cumm] 6.5 k/cumm (06/12/17 1:47 PM) RBC [3.71-5.17 million/cumm] 3.89 millio n/cumm (06/12/17 1:47 PM) Hgb [12.0-15.0 GM/dL] 12.3 GM/dL (06/12/17 1:47 PM) Hct [35.0-49.0 %] 36.5 % (06/12/17 1:47 PM) MCV [81-99 fL] 94 fL (06/12/17 1:47 PM) MCH [27.0-34.0 pg] 31.6 pg (06/12/17 1:47 PM) MCHC [32.0-36.0 GM/dL] 33.7 GM/dL (06/12/17 1:47 PM) RDW [11.5-14.5 %] 16.2 % *HI* (06/12/17 1:47 PM) Platelet [150-450 k/cumm] 272 k/cumm (06/12/17 1:47 PM) MPV [7.0-12.0 fL] 7.6 fL (06/12/17 1:47 PM) Neutrophils % 68 % *NA* (06/12/17 1:47 PM) Lymphocytes % 21 % *NA* (06/12/17 1:47 PM) Monocytes % 7 % *NA* (06/12/17 1:47 PM) Eosinophils % 3 % *NA* (06/12/17 1:47 PM) Basophils % 1 % *NA* (06/12/17 1:47 PM) Absolute Neutrophil [1.7-7.5 k/cumm] 4.4 k/cumm (06/12/17 1:47 PM) Absolute Lymphocyte [1.0-3.2 k/cumm] 1.3 k/cumm (06/12/17 1:47 PM) Absolute Monocyte [0.1-1.3 k/cumm] 0.5 k /cumm (06/12/17 1:47 PM) Absolute Eosinophil [0.0-0.3 k/cumm] 0.2 k/cumm (06/12/17 1:47 PM) Absolute Basophil [0.0-0.2 k/cumm] 0.1 k /cumm (06/12/17 1:47 PM) Chemistry Studies Most recent to oldest [Reference Range]: 1 Sodium SerPl QN [135-145 mmol/L] 140 mmo l/L (06/12/17 1:47 PM) Potassium SerPl QN [3.5-5.5 mmol/L] 3.8 mmol/L (06/12/17 1:47 PM) Chloride SerPl QN [98-108 mmol/L] 99 mmo l/L (06/12/17 1:47 PM) Carbon Dioxide SerPl QN [22-29 mmol/L] 3 2 mmol/L *HI* (06/12/17 1:47 PM) Anion Gap [3-11 mmol/L] 9 mmol/L (06/12/17 1:47 PM) BUN SerPl QN [5-20 mg/dL] 25 mg/dL *HI* (06/12/17 1:47 PM) Creatinine SerPl QN [0.60-1.20 mg/dL] 0. 95 mg/dL (06/12/17 1:47 PM) Estimated GFR (CKD-EPI) [>=60 mL/min/1.7 3m2] 59 mL/min/1.73m2 *LOW* (06/12/17 1:47 PM) Estimated CRCL (CG) [>=59 mL/min] 38 mL/ min 1 *LOW* (06/12/17 1:47 PM) Glucose SerPl QN [70-99 mg/dL] 151 mg/dL *HI* (06/12/17 1:47 PM) Calcium Total SerPl QN [8.5-10.5 mg/dL] 9.8 mg/dL (06/12/17 1:47 PM) 1Result Comment: Moderate decrease in CRCL. 30 to 59 If Estimated CRCL chronically in this range, this corresponds to Stage 3 CKD Immunizations Given and Recorded Vaccine Date Status Refusal Reason influenza virus vaccine, inactivated 1 12/20/15 Gi adin NOS Influenza 12/09/14 Recorded pneumococcal 13-valent vaccine 09/20/14 Recorded tetanus/diphtheria/pertussis,acel (Tdap) 05/01/13 Recorded zoster vaccine live 03/18/12 Recorded pneumococcal 23-valent vaccine 03/18/11 Recorded 1Result Comment: [facility] [id number] Procedures Procedure Date Related Diagnosis Body Site [...] screw removal 10 04/16/12 Completed Arthroscopic Surgery 2011 C ompleted Bone density scan 2011 Comp leted right foot surgery 2011 Com pleted Rotator Cuff Repair 14, 15 2011 Completed Bone spur 2003 Completed Arthroscopy, knee, surgical; with meniscus repair (medial AND lateral) 2001 Completed Appendectomy 16 1985 Completed Total abdominal hysterectomy (corpus and cervix), with or without removal of tube(s), with or without removal of ovary(s); 17 1985 Completed Electroshock therapy 1976 C ompleted Dilation and Curettage 1964 Co mpleted Tonsillectomy with adenoidectomy 1944 Completed Amputation 19 Completed 1done two weeks apart, last 10/16 2Normal lifetime risk 3.3% 3Minimal atherosclerosis bilateral 4Mod 5auto-populated from documented surgical case 6IMA about 06/2014 7at [facility] approx 8Mild , mild pulm HTN, EF 60% 9Right 4th toe 10Dr [place] 11shoulder 12Normal 13Arthritis growth removed 14shoulder 15Also in 2010 16at the same time as [facility] 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
--- OUTSIDE RECORDS SUMMARY | 2024-02-26 13:56 | XMS_ITS | Referral Summary ---
Author Organization [facility] Address Unknown Care Team Providers Care Organic Extractions Technician Name Role Phone Rosmery May I Primary Care Physician [phone] Donn Villeda Jr Primary Care Physician Encounter Michi Fernando [id number] Date(s): 07/11/17 - 07/11/17 [facility] [address] [place] [address]- Encounter Diagnosis Arthritis of carpometacarpal (CMC) joint of right thumb(Discharge Diagnosis) - 07/11/17 Attending Physician: Govind Gann III, MD Admitting Physician: Govind Gann III, MD Referring Physician: Govind Gann III, MD Vital Signs Most recent to oldest [Reference Range]: 1 2 Height CM 154 cm (07/11/17 9:07 AM) 154 cm (07/11/17 9:06 AM) Weight KG 98.2 kg (07/11/17 9:06 AM) BSAM2 Weight in kg 2.05 m2 (07/11/17 9:06 AM) BMI Weight in kg 41.4 kg/m2 (07/11/17 9:06 AM) [place] Body Weight 46.95 kg (07/11/17 9:07 AM) 46.95 kg (07/11/17 9:06 AM) Problem List Condition Effective Dates Status [...] Effective Dates Health Status Clinical Service Informant Arthritis of carpometacarpal (CMC) joint of right thumb Discharge Diagnosis 07/11/17 Non-Specified Allergies, Adverse Reactions, Alerts Substance Reaction Severity Status penicillin 1 Anaphylaxis Swelling Rash Active 1CAN take KEFLEX Medications allopurinol 100 mg oral tablet 100 mg, = 1 Tablet, Orally, Daily, Maintenance, Dispense: 30 Tablet, Refills: 2, Total Refills: 2, 04/26/17 12:58:29 EST, Pharmacy: [facility]/pharmacy #[id number], 1 Tablet Orally Daily Start Date: 04/26/17 [...] Total Refills: 3, 02/20/17 15:16:36 EST, [id number] 1 Tablet Orally QAM Start Date: 02/20/17 Status: Ordered atorvastatin 40 mg oral tablet 40 mg, = 1 Tablet, Orally, QHS, Maintenance, Dispense: 90 Tablet, Refills: 3, Total Refills: 3, 01/28/17 11:31:19 EST, [id number], 1 Tablet Orally QHS, [...] FOR 30 DAYS, 05/10/17 13:52:10 EST, [id number], TAKE 1 CAPSULE ORALLY [...] 1-2 TABLETS BY MOUTH A DAY, Pharmacy: [facility]/pharmacy #[id number] Start Date: 05/06/17 Status: Ordered levothyroxine 0.137 mg (137 mCg) oral tablet 137 mCg, = 1 Tablet, Orally, Daily, Maintenance, Dispense: 90 Tablet, Refills: 3, Total Refills: 3,09/13/16 12:56:01 EDT, [id number], 1 Tablet Orally Daily, Supply Start Date: 09/13/16 Status: Ordered losartan-hydroCHLOROthiazide 100mg-12.5mg oral tablet See Instructions, Soft Stop, Dispense: 45 Tablet, Refills: 3, Total Refills: 10, TAKE 1/2 TABLET BYMOUTH EVERY MORNING, 01/23/17 13:41:53 EST, Pharmacy: [facility]/pharmacy #[id number], TAKE 1/2 TABLET BY MOUTH [...] Total Refills: 3, 01/16/17 11:07:33 EDT, Pharmacy: [facility]/pharmacy #[id number], 1 Tablet Orally Daily, Supply Start Date: 01/16/17 Status: Ordered multivitamin Multiple Vitamins oral tablet 1 Tablet, Orally, Every Afternoon, Maintenance, 12/07/15 13:22:24 EDT, Supply Start Date: 12/07/15 Status: Ordered EzFlop - A First of Its Kind Flip Flop VerMobango Test Strips Test blood sugar 2 times daily, Other, Unscheduled, Maintenance, 60 Each, Refills: 11, Total Refills: 11, Diagnosis : E11.9, 07/10/16 16:25:11 EDT, Pharmacy: [facility]/pharmacy #[id number], Test blood sugar 2 times daily Other Unscheduled,x30 Days,Instr:Diagnosis... Start Date: 07/10/16 Stop Date: 07/05/17 Status: Ordered potassium chloride 10 mEq oral capsule, extended release 10 mEq, = 1 Capsule, Orally, Daily, Maintenance, Dispense: 30 Capsule, Refills: 11, Total Refills: 11, 11/14/16 15:03:30 EDT, Pharmacy: [facility]/pharmacy #[id number], 1 Capsule Orally Daily [...] 4, 10/02/16 15:19:49 EDT, 12/26/17 15:19:49 EDT, [id number] CA Foot&Ankle (from [id number]) in session 47, Supply Start Date: 10/02/16 [...] vaccine 03/18/11 Recorded 1Result Comment: [facility] [id number] Procedures Procedure Date Related Diagnosis Body Site Status Rt Thumb CMCA with FCR Tendo n Trans, CTR OWW 06/17/2017 06/17/17 Completed Ureteroscopy and electrohydr aulic lithotripsy of calculus [...] HTN, EF 60% 9Right 4th toe 10Dr [place] 11shoulder 12Normal 13Arthritis growth removed 14shoulder 15Also in 2010 16at the same time as [facility] 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
--- OUTSIDE RECORDS SUMMARY | 2024-02-26 13:56 | XMS_ITS | Referral Summary ---
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) - 06/04/17 Diabetic neuropathy, type II diabetes mellitus(Discharge Diagnosis) - 06/04/17 Hypothyroidism(Discharge Diagnosis) - 06/04/17 High level of uric acid in blood(Discharge Diagnosis) - 06/04/17 Attending Physician: Rosmery May MD Admitting Physician: Rosmery May MD Referring Physician: None, None Vital Signs Most recent to oldest [Reference Range]: 1 Heart Rate [60-100 bpm] 72 bpm (06/04/17 11:26 AM) Oxygen Saturation [92-100 %] 97 % (06/04/17 11:26 AM) Blood Pressure [90-140/60-90 mmHg] 128/8 0mmHg (06/04/17 11:26 AM) Mean Arterial Pressure #1 Calculated 96 mmHg (06/04/17 11:26 AM) Height CM 154 cm (06/04/17 11:26 AM) Weight KG 99.3 kg (06/04/17 11:26 AM) BSAM2 Weight in kg 2.06 m2 (06/04/17 11:26 AM) BMI Weight in kg 41.9 kg/m2 (06/04/17 11:26 AM) [place] Body Weight 46.95 kg (06/04/17 11:26 AM) Problem List Condition Effective Dates Status [...] neuropathy, type II diabetes mellitus Discharge Diagnosis 06/04/17 DM type 2 with diabetic dyslipidemia Discharge Diagnosis 06/04/17 Hypothyroidism Discharge Diagnosis 06/04/17 High level of uric acid in blood Discharge Diagnosis 06/04/17 Allergies, Adverse Reactions, Alerts Substance Reaction Severity Status penicillin 1 Anaphylaxis Swelling Rash Active 1CAN take KEFLEX Medications allopurinol 100 mg oral tablet 100 mg, = 1 Tablet, Orally, Daily, Maintenance, Dispense: 30 Tablet, Refills: 2, Total Refills: 2, 04/26/17 12:58:29 EST, Pharmacy: [facility]/pharmacy #[id number], 1 Tablet Orally Daily Start Date: 04/26/17 [...] Total Refills: 3, 02/20/17 15:16:36 EST, [id number] 1 Tablet Orally QAM Start Date: 02/20/17 Status: Ordered atorvastatin 40 mg oral tablet 40 mg, = 1 Tablet, Orally, QHS, Maintenance, Dispense: 90 Tablet, Refills: 3, Total Refills: 3, 01/28/17 11:31:19 EST, [id number], 1 Tablet Orally QHS, Supply Start [...] FOR 30 DAYS, 05/10/17 13:52:10 EST, [id number], TAKE 1 CAPSULE ORALLY 3 TIMES [...] TABLETS BY MOUTH A DAY, Pharmacy: [facility]/pharmacy #[id number] Start Date: 05/06/17 Status: Ordered levothyroxine 0.137 mg (137 mCg) oral tablet 137 mCg, = 1 Tablet, Orally, Daily, Maintenance, Dispense: 90 Tablet, Refills: 3, Total Refills: 3,09/13/16 12:56:01 EDT, Pharmacy: [facility]/pharmacy #[id number], 1 Tablet Orally Daily, Supply Start Date: 09/13/16 Status: Ordered losartan-hydroCHLOROthiazide 100mg-12.5mg oral tablet See Instructions, Soft Stop, Dispense: 45 Tablet, Refills: 3, Total Refills: 10, TAKE 1/2 TABLET BYMOUTH EVERY MORNING, 01/23/17 13:41:53 EST, Pharmacy: [facility]/pharmacy #[id number], TAKE 1/2 TABLET BY [...] Total Refills: 3, 01/16/17 11:07:33 EDT, [id number], 1 Tablet Orally Daily, Supply Start Date: 01/16/17 Status: Ordered multivitamin Multiple Vitamins oral tablet 1 Tablet, Orally, Every Afternoon, Maintenance, 12/07/15 13:22:24 EDT, Supply Start Date: 12/07/15 Status: Ordered OneTouch Verio Test Strips Test blood sugar 2 times daily, Other, Unscheduled, Maintenance, 60 Each, Refills: 11, Total Refills: 11, Diagnosis : E11.9, 07/10/16 16:25:11 EDT, Pharmacy: [facility]/pharmacy #[id number], Test blood sugar 2 times daily Other Unscheduled,x30 Days,Instr:Diagnosis... Start Date: 07/10/16 Stop Date: 07/05/17 Status: Ordered potassium chloride 10 mEq oral capsule, extended release 10 mEq, = 1 Capsule, Orally, Daily, Maintenance, Dispense: 30 Capsule, Refills: 11, Total Refills: 11, 11/14/16 15:03:30 EDT, Pharmacy: [facility]/pharmacy #[id number], 1 Capsule Orally Daily [...] 4, 10/02/16 15:19:49 EDT, 12/26/17 15:19:49 EDT, [id number] [place] Foot&Ankle (from [id number]) in session 47, Supply Start Date: 10/02/16 [...] pneumococcal 23-valent vaccine 03/18/11 Recorded 1Result Comment: [facility] [id number] Procedures Procedure Date Related Diagnosis Body Site [...] HTN, EF 60% 9Right 4th toe 10Dr [place] 11shoulder 12Normal 13Arthritis growth removed 14shoulder 15Also in 2010 16at the same time as 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
--- OUTSIDE RECORDS SUMMARY | 2024-02-26 13:56 | XMS_ITS | Referral Summary ---
Author Organization [facility] Address Unknown Care Team Providers Care Buffing Wheel Former Machine Name Role Phone Rosmery May I Primary Care Physician Donn Villeda Jr Primary Care Physician [phone] Encounter Michi Fernando [id number] Date(s): 08/06/17 - 08/06/17 [facility] [address] [place] [address]- Attending Physician: Govind Gann III, MD Admitting [...] KEFLEX Medications allopurinol 100 mg oral tablet See Instructions, # 30 Tablet, Refill(s) 2, Instructions: TAKE 1 TABLET BY MOUTH DAILY, Pharmacy: [facility]/pharmacy #[id number] Start Date: 07/17/17 Status: Ordered ALprazoLAM 0.5 mg oral tablet, [...] Total Refills: 3, 02/20/17 15:16:36 EST, Pharmacy: [facility]/pharmacy #[id number], 1 Tablet Orally QAM Start Date: 02/20/17 Status: Ordered atorvastatin 40 mg oral tablet 40 mg, = 1 Tablet, Orally, QHS, Maintenance, Dispense: 90 Tablet, Refills: 3, Total Refills: 3, 01/28/17 11:31:19 EST, Pharmacy: [facility]/pharmacy #[id number], 1 Tablet Orally [...] FOR 30 DAYS, 05/10/17 13:52:10 EST, [id number], TAKE 1 CAPSULE ORALLY 3 TIMES [...] 1-2 TABLETS BY MOUTH A DAY, Pharmacy: [facility]/pharmacy #[id number] Start Date: 05/06/17 Status: Ordered levothyroxine 0.137 mg (137 mCg) oral tablet 137 mCg, = 1 Tablet, Orally, Daily, Maintenance, Dispense: 90 Tablet, Refills: 3, Total Refills: 3,09/13/16 12:56:01 EDT, [id number], 1 Tablet Orally Daily, Supply Start Date: 09/13/16 Status: Ordered losartan-hydroCHLOROthiazide 100mg-12.5mg oral tablet See Instructions, Soft Stop, Dispense: 45 Tablet, Refills: 3, Total Refills: 10, TAKE 1/2 TABLET BYMOUTH EVERY MORNING, 01/23/17 13:41:53 EST, [id number], TAKE 1/2 TABLET BY MOUTH EVERY [...] Total Refills: 3, 01/16/17 11:07:33 EDT, [id number], 1 Tablet Orally Daily, Supply Start Date: 01/16/17 Status: Ordered multivitamin Multiple Vitamins oral tablet 1 Tablet, Orally, Every Afternoon, Maintenance, 12/07/15 13:22:24 EDT, Supply Start Date: 12/07/15 Status: Ordered OneTouch Verio Test Strips Test blood sugar 2 times daily, Other, Unscheduled, Maintenance, 60 Each, Refills: 11, Total Refills: 11, Diagnosis : E11.9, 07/10/16 16:25:11 EDT, Pharmacy: [facility]/pharmacy #[id number], Test blood sugar 2 times daily Other Unscheduled,x30 Days,Instr:Diagnosis... Start Date: 07/10/16 Stop Date: 07/05/17 Status: Ordered potassium chloride 10 mEq oral capsule, extended release 10 mEq, = 1 Capsule, Orally, Daily, Maintenance, Dispense: 30 Capsule, Refills: 11, Total Refills: 11, 11/14/16 15:03:30 EDT, [id number], 1 Capsule Orally Daily Start Date: 11/14/16 Status: Ordered Tylenol Extra Strength 500 mg oral tablet 1,000 mg, = 2 Tablet, Orally, QHS, PRN for pain, Maintenance, 10/31/16 13:20:02 EDT Start Date: 10/31/16 Status: Ordered urea 40% topical cream 1 Amarjit, Topical, BID, for 90 Days, Acute, Dispense: 90 GM, Refills: 4, Total Refills: 4, 10/02/16 15:19:49 EDT, 12/26/17 15:19:49 EDT, [id number] [facility] Foot&Ankle (from [id number]) in session 47, Supply Start Date: 10/02/16 [...] and Recorded Vaccine Date Status Refusal Reason zoster vaccine, inactivated 06/04/17 Recorded influenza virus vaccine, inactivated 1 12/20/15 Gi adin NOS Influenza 12/09/14 Recorded pneumococcal 13-valent vaccine 09/20/14 Recorded tetanus/diphtheria/pertussis,acel (Tdap) 05/01/13 Recorded zoster vaccine live 03/18/12 Recorded pneumococcal 23-valent vaccine 03/18/11 Recorded 1Result Comment: [facility] [id number] Procedures Procedure Date Related Diagnosis Body Site [...] 16at the same time as 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
--- OUTSIDE RECORDS SUMMARY | 2024-02-26 13:56 | XMS_ITS | Referral Summary ---
Author Organization [facility] Address Unknown Care Team Providers Care Defensive Secondary Coach Name Role Phone Rosmery May I Primary Care Physician Encounter Michi Fernando [phone] Date(s): 10/25/17 - 10/25/17 [facility] [address], [place] [address] Encounter Diagnosis Diabetic neuropathy, type II diabetes mellitus(Discharge Diagnosis) - 10/25/17 Onychomycosis due to dermatophyte(Discharge Diagnosis) - 10/25/17 Onychogryphosis(Discharge Diagnosis) - 10/25/17 Pre-ulcerative calluses(Discharge Diagnosis) - 10/25/17 Attending Physician: Bruce Fitzgerald DPM Admitting Physician: Bruce Fitzgerald DPM Referring Physician: None, None Reason for Visit DF Vital Signs Most recent to oldest [Reference Range]: 1 Heart Rate [60-100 bpm] 77 bpm (10/25/17 10:21 AM) Blood Pressure [90-140/60-90 mmHg] 161/8 6mmHg *HI* (10/25/17 10:21 AM) Mean Arterial Pressure #1 Calculated 111 mmHg (10/25/17 10:21 AM) BP Site #1 Arm, Lower Right (10/25/17 10:21 AM) Method BP #1 Automatic/Non Invasi ve (10/25/17 10:21 AM) Height CM 154.9 cm (10/25/17 10:21 AM) Weight KG 96.8 kg (10/25/17 10:21 AM) BSAM2 Weight in kg 2.04 m2 (10/25/17 10:21 AM) BMI Weight in kg 40.3 kg/m2 (10/25/17 10:21 AM) [place] Body Weight 47.76 kg (10/25/17 10:21 AM) Problem List Condition Effective Dates Status Health Status Inform ant Anemia(Confirmed) Active Moderate aortic stenosis(Confirmed) Active Arthritis(Confirmed) Active Arthritis of carpometacarpal (CMC) joint of right thumb(Confirmed) Active Arthritis of midfoot(Confirmed) Active Hematuria(Confirmed) Active Carpal tunnel syndrome, bilateral(Confirmed) Active Left carpal tunnel syndrome(Confirmed) Active Left carpal tunnel syndrome(Confirmed) Active Right carpal tunnel syndrome(Confirmed) Active Right carpal tunnel syndrome(Confirmed) Active Chronic diastolic heart failure(Confirmed) Active COPD (chronic obstructive pu lmonary disease)(Confirmed) Active Chronic foot ulcer(Confirmed) Active Osteoarthritis of left thumb(Confirmed) Active Osteoarthritis of left thumb(Confirmed) Active Osteoarthritis [...] Status Clinical Service Informant Onychogryphosis Discharge Diagnosis 10/25/17 Pre-ulcerative calluses Discharge Diagnosis 10/25/17 Onychomycosis due to dermatophyte Discharge Diagnosis 10/25/17 Diabetic neuropathy, type II diabetes mellitus Discharge Diagnosis 10/25/17 Allergies, Adverse Reactions, Alerts Substance Reaction Severity Status penicillin 1 Anaphylaxis Swelling Rash Active 1CAN take KEFLEX Medications acetaminophen (Tylenol Extra Strength 500 mg oral tablet) 2 tab(s) By mouth At Bedtime as needed for pain. allopurinol (allopurinol 100 mg oral tablet) TAKE 1 TABLET BY MOUTH DAILY. Refills: 2. Ordering provider: Rosmery May MD <content styleCode='Bold'>[id number]</content></br>[address] [facility] [place] [address] ALprazoLAM (ALprazoLAM 0.5 m g oral tablet, extended release) 1 tab(s) By mouth two times a day as needed prn anxiety. aripiprazole (Abilify) By mouth once a day. 1/2 a pill daily. aripiprazole (aripiprazole 5 mg oral tablet) 0.5 tab(s) By mouth At Bedtime. Refills: 0. Ordering provider: Vickey Samson MD <content styleCode='Bold'>[id number]</content></br>[address] [facility] [place] [address] aspirin (aspirin 81 mg oral tablet) 1 tab(s) By mouth At Bedtime. atenolol (atenolol 25 mg ora l tablet) 1 tab(s) By mouth Every Morning. Refills: 3. Ordering provider: Rosmery May MD <content styleCode='Bold'>[id number]</content></br>[address] [facility] [place] [address] atorvastatin (atorvastatin 4 0 mg oral tablet) 1 tab(s) By mouth At Bedtime. Refills: 3. Ordering provider: Rosmery May MD <content styleCode='Bold'>[id number]</content></br>[address] [facility] [place] [address] buPROPion (Wellbutrin XL 300 mg/24 hours oral tablet, extended release) 1 tab(s) By mouth Every Morning. cholecalciferol (Vitamin D3 1000 units oral tablet) 1 tab(s) By mouth once a day for 30 Days. DULOXetine (Cymbalta 20 mg o ral delayed release capsule) 1 cap By mouth Every Morning. takes with Cymbalta 60mg for total dose 80mg. DULOXetine (Cymbalta 60 mg o ral delayed release capsule) 1 cap By mouth Every Morning. takes with Cymbalta 20mg for total dose 80mg. furosemide (furosemide 20 mg oral tablet) TAKE 1-2 TABLETS BY MOUTH A DAY. Refills: 5. Ordering provider: Rosmery May MD <content styleCode='Bold'>[id number]</content></br>[address] [facility] [place] [address] furosemide (furosemide 20 mg oral tablet) 1 tab(s) By mouth two times a day. iron polysaccharide (Ferrex- 150 oral capsule) 1 cap By mouth Every Saturday, Saturday and Saturday. levothyroxine (levothyroxine 0.137 mg (137 mCg) oral tablet) TAKE 1 TABLET BY MOUTH DAILY. Refills: 3. Ordering provider: Rosmery May MD <content styleCode='Bold'>[id number]</content></br>[address] [facility] [place] [address] lidocaine topical (Aspercrem e with Lidocaine 4% topical cream) 1 Amarjit to the skin three times a day as needed as needed for pain. applies to hand. losartan-hydroCHLOROthiazide (losartan-hydroCHLOROthiazide 100mg-12.5mg oral tablet) TAKE 1/2 TABLET BY MOUTH EVERY MORNING. Refills: 3. Ordering provider: Rosmery May MD <content styleCode='Bold'>[id number]</content></br>[address] [facility] [place] [address] lysine (lysine 500 mg oral t ablet) 1 tab(s) By mouth as needed for canker sore prevention. metFORMIN (metFORMIN 500 mg oral tablet) 1 tab(s) By mouth twice a day with meals. Refills: 3. Ordering provider: Rosmery May MD <content styleCode='Bold'>[id number]</content></br>[address] [facility] [place] [address] multivitamin (multivitamin M ultiple Vitamins oral tablet) 1 tab(s) By mouth Every Morning. polycarbophil (FiberCon 625 mg oral tablet) 1 tab(s) By mouth two times a day. potassium chloride (potassiu m chloride 10 mEq oral capsule, extended release) 1 cap By mouth once a day. Refills: 11. Ordering provider: Marco Antonio Ansari MD <content styleCode='Bold'>[id number]</content></br>[address] [place] [address] Unknown Med (OneTouch Verio Test Strips) Test blood sugar 2 times daily Other Unscheduled for 30 Days. Diagnosis : E11.9. Refills: 11. Ordering provider: Rosmery May MD <content styleCode='Bold'>[id number]</content></br>[address] [place] [facility] [place] [address] urea topical (urea 40% topic al cream) 1 Amarjit to the skin At bed time. applies to foot. Immunizations Given and Recorded Vaccine Date Status Refusal Reason zoster vaccine, inactivated 06/04/17 Recorded influenza virus vaccine, inactivated 1 12/20/15 Gi adin NOS Influenza 12/09/14 Recorded pneumococcal 13-valent vaccine 09/20/14 Recorded tetanus/diphtheria/pertussis,acel (Tdap) 05/01/13 Recorded zoster vaccine live 03/18/12 Recorded pneumococcal 23-valent vaccine 03/18/11 Recorded 1Result Comment: [facility] 70211-634-01 Procedures Procedure Date Related Diagnosis Body Site Status Lt Thumb CMCA w/FCR Tendon T ransf, CTR OWW 10/07/2017 10/07/17 Completed Rt Thumb CMCA with FCR Tendo n [...] in 2010 16at the same time as [facility] 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
--- OUTSIDE RECORDS SUMMARY | 2024-02-26 13:56 | XMS_ITS | Referral Summary ---
Author Organization [facility] Address Unknown Care Team Providers Care Ballet Master/Mistress Name Role Phone Rosmery May I Primary Care Physician [phone] Donn Villeda Jr Primary Care Physician Encounter Michi Fernando [id number] Date(s): 06/21/17 - 06/21/17 [facility] [address] [place] [address]- Attending Physician: Govind Gann III, MD Admitting [...] Total Refills: 2, 04/26/17 12:58:29 EST, [id number] 1 Tablet Orally Daily Start Date: [...] Total Refills: 3, 02/20/17 15:16:36 EST, Pharmacy: [facility]acy #[id number], 1 Tablet Orally QAM Start Date: 02/20/17 Status: Ordered atorvastatin 40 mg oral tablet 40 mg, = 1 Tablet, Orally, QHS, Maintenance, Dispense: 90 Tablet, Refills: 3, Total Refills: 3, 01/28/17 11:31:19 EST, Pharmacy: [facility]/pharmacy #[id number], 1 Tablet Orally QHS, Supply Start [...] FOR 30 DAYS, 05/10/17 13:52:10 EST, [id number], TAKE 1 CAPSULE ORALLY 3 TIMES [...] 1-2 TABLETS BY MOUTH A DAY, Pharmacy: [facility]/pharmacy #[id number] Start Date: 05/06/17 Status: Ordered levothyroxine 0.137 mg (137 mCg) oral tablet 137 mCg, = 1 Tablet, Orally, Daily, Maintenance, Dispense: 90 Tablet, Refills: 3, Total Refills: 3,09/13/16 12:56:01 EDT, [id number], 1 Tablet Orally Daily, Supply Start Date: 09/13/16 Status: Ordered losartan-hydroCHLOROthiazide 100mg-12.5mg oral tablet See Instructions, Soft Stop, Dispense: 45 Tablet, Refills: 3, Total Refills: 10, TAKE 1/2 TABLET BYMOUTH EVERY MORNING, 01/23/17 13:41:53 EST, [id number], TAKE 1/2 TABLET BY MOUTH EVERY [...] Total Refills: 3, 01/16/17 11:07:33 EDT, [id number], 1 Tablet Orally Daily, Supply Start Date: 01/16/17 Status: Ordered multivitamin Multiple Vitamins oral tablet 1 Tablet, Orally, Every Afternoon, Maintenance, 12/07/15 13:22:24 EDT, Supply Start Date: 12/07/15 Status: Ordered [place] 5 mg-325 mg oral tablet 1 Tablet, Orally, Q6, PRN as needed for pain, Acute, Dispense: 28 Tablet, Refills: 0, Total Refills: 0, Print TY Number, 06/21/17 11:42:00 EDT, 06/28/17 8:00:00 EDT, [id number], 1 Tablet Orally Q6,PRN:as needed for pain, Supply Start Date: 06/21/17 Stop Date: 06/28/17 Status: Ordered OneTouch Verio Test Strips Test blood sugar 2 times daily, Other, Unscheduled, Maintenance, 60 Each, Refills: 11, Total Refills: 11, Diagnosis : E11.9, 07/10/16 16:25:11 EDT, Pharmacy: [facility]/pharmacy #[id number], Test blood sugar 2 times daily Other Unscheduled,x30 Days,Instr:Diagnosis... Start Date: 07/10/16 Stop Date: 07/05/17 Status: Ordered potassium chloride 10 mEq oral capsule, extended release 10 mEq, = 1 Capsule, Orally, Daily, Maintenance, Dispense: 30 Capsule, Refills: 11, Total Refills: 11, 11/14/16 15:03:30 EDT, [id number], 1 Capsule Orally Daily Start Date: 11/14/16 Status: Ordered Tylenol Extra Strength 500 mg oral tablet 1,000 mg, = 2 Tablet, Orally, QHS, PRN for pain, Maintenance, 10/31/16 13:20:02 EDT Start Date: 10/31/16 Status: Ordered urea 40% topical cream 1 Amarjit, Topical, BID, for 90 Days, Acute, Dispense: 90 GM, Refills: 4, Total Refills: 4, 10/02/16 15:19:49 EDT, 12/26/17 15:19:49 EDT, [id number] [facility] Foot&Ankle (from [id number]) in session 47, Supply Start Date: 10/02/16 [...] influenza virus vaccine, inactivated 1 12/20/15 Gi aidn NOS Influenza 12/09/14 Recorded pneumococcal 13-valent vaccine 09/20/14 Recorded tetanus/diphtheria/pertussis,acel (Tdap) 05/01/13 Recorded zoster vaccine live 03/18/12 Recorded pneumococcal 23-valent vaccine 03/18/11 Recorded 1Result Comment: [facility] [id number] Procedures Procedure Date Related Diagnosis Body Site [...] HTN, EF 60% 9Right 4th toe 10Dr [place] 11shoulder 12Normal 13Arthritis growth removed 14shoulder 15Also in 2010 16at the same time as [facility] 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
--- OUTSIDE RECORDS SUMMARY | 2024-02-26 13:56 | XMS_ITS | Referral Summary ---
Author Organization [facility] Address Unknown Care Team Providers Care Stevedoring Superintendent Name Role Phone Rosmery Mya I Primary Care Physician [phone] Donn Villeda Jr Primary Care Physician Encounter Michi Fernando [id number] Date(s): 06/06/17 - 06/06/17 [facility] [address] [place] [address]- Encounter Diagnosis Osteoarthritis of right thumb(Discharge Diagnosis) - 06/06/17 Right carpal tunnel syndrome(Discharge Diagnosis) - 06/06/17 Attending Physician: Govind Gann III, MD Admitting [...] Effective Dates Health Status Clinical Service Informant Right carpal tunnel syndrome Discharge Diagnosis 06/06/17 Non-Specified Osteoarthritis of right thumb Discharge Diagnosis 06/06/17 Non-Specified Allergies, Adverse Reactions, Alerts Substance Reaction Severity Status penicillin 1 Anaphylaxis Swelling Rash Active 1CAN take KEFLEX Medications allopurinol 100 mg oral tablet 100 mg, = 1 Tablet, Orally, Daily, Maintenance, Dispense: 30 Tablet, Refills: 2, Total Refills: 2, 04/26/17 12:58:29 EST, Pharmacy: [facility]/pharmacy #[id number], 1 Tablet Orally Daily Start Date: [...] Total Refills: 3, 02/20/17 15:16:36 EST, Pharmacy: [facility]/pharmacy #[id number], 1 Tablet Orally QAM Start Date: 02/20/17 Status: Ordered atorvastatin 40 mg oral tablet 40 mg, = 1 Tablet, Orally, QHS, Maintenance, Dispense: 90 Tablet, Refills: 3, Total Refills: 3, 01/28/17 11:31:19 EST, [id number], 1 Tablet Orally QHS, Supply Start [...] 1-2 TABLETS BY MOUTH A DAY, [id number] Start Date: 05/06/17 Status: Ordered levothyroxine [...] Total Refills: 3, 01/16/17 11:07:33 EDT, Pharmacy: [facility]/pharmacy #[id number], 1 Tablet Orally Daily, Supply Start Date: 01/16/17 Status: Ordered multivitamin Multiple Vitamins oral tablet 1 Tablet, Orally, Every Afternoon, Maintenance, 12/07/15 13:22:24 EDT, Supply Start Date: 12/07/15 Status: Ordered OneTouch Verio Test Strips Test blood sugar 2 times daily, Other, Unscheduled, Maintenance, 60 Each, Refills: 11, Total Refills: 11, Diagnosis : E11.9, 07/10/16 16:25:11 EDT, Pharmacy: [facility]/pharmacy #[id number], Test blood sugar 2 times daily Other Unscheduled,x30 Days,Instr:Diagnosis... Start Date: 07/10/16 Stop Date: 07/05/17 Status: Ordered potassium chloride 10 mEq oral capsule, extended release 10 mEq, = 1 Capsule, Orally, Daily, Maintenance, Dispense: 30 Capsule, Refills: 11, Total Refills: 11, 11/14/16 15:03:30 EDT, Pharmacy: [facility]/pharmacy #[id number], 1 Capsule Orally [...] 4, 10/02/16 15:19:49 EDT, 12/26/17 15:19:49 EDT, [id number] [facility] Foot[facility]Ankle (from [id number]) in session 47, Supply Start Date: 10/02/16 [...] Recorded 1Result Comment: 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
--- OUTSIDE RECORDS SUMMARY | 2024-02-26 13:56 | XMS_ITS | Referral Summary ---
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) - 06/07/17 COPD (chronic obstructive pulmonary disease)(Discharge Diagnosis) - 06/07/17 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) - 06/07/17 GERD (gastroesophageal reflux disease)(Discharge Diagnosis) - 06/07/17 HTN (hypertension)(Discharge Diagnosis) - 06/07/17 Hypothyroidism(Discharge Diagnosis) - 06/07/17 EUGENIE (obstructive sleep apnea)(Discharge Diagnosis) - 06/07/17 Osteoarthritis of right thumb(Discharge Diagnosis) - 06/07/17 Right carpal tunnel syndrome(Discharge Diagnosis) - 06/07/17 Sleep apnea(Discharge Diagnosis) - 06/07/17 Attending Physician: Govind Gann III, MD Admitting [...] Effective Dates Health Status Clinical Service Informant EUGENIE (obstructive sleep apnea) Discharge Diagnosis 06/07/17 Non-Specified Right carpal tunnel syndrome Discharge Diagnosis 06/07/17 Non-Specified HTN (hypertension) Discharge Diagnosis 06/07/17 Non-Specified GERD (gastroesophageal reflux disease) Discharge Diagnosis 06/07/17 Non-Specified Sleep apnea Discharge Diagnosis 06/07/17 Non-Specified Osteoarthritis of right thumb Discharge Diagnosis 06/07/17 Non-Specified Hypothyroidism Discharge Diagnosis 06/07/17 Non-Specified COPD (chronic obstructive pulmonary disease) Discharge Diagnosis 06/07/17 Non-Specified DM type 2 with diabetic dyslipidemia Discharge Diagnosis 06/07/17 Non-Specified 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 Discharge Diagnosis 06/07/17 Non-Specified Chronic diastolic heart failure Discharge Diagnosis 06/07/17 Non-Specified Allergies, Adverse Reactions, Alerts Substance Reaction Severity Status penicillin 1 Anaphylaxis Swelling Rash Active 1CAN take KEFLEX Medications allopurinol 100 mg oral tablet 100 mg, = 1 Tablet, Orally, Daily, Maintenance, Dispense: 30 Tablet, Refills: 2, Total Refills: 2, 04/26/17 12:58:29 EST, [id number], 1 Tablet Orally Daily Start [...] Refills: 3, 02/20/17 15:16:36 EST, [id number], 1 Tablet Orally QAM Start Date: 02/20/17 Status: Ordered atorvastatin 40 mg oral tablet 40 mg, = 1 Tablet, Orally, QHS, Maintenance, Dispense: 90 Tablet, Refills: 3, Total Refills: 3, 01/28/17 11:31:19 EST, [id number], 1 Tablet Orally QHS, Supply Start [...] FOR 30 DAYS, 05/10/17 13:52:10 EST, Pharmacy: [facility]/pharmacy #[id number], TAKE 1 CAPSULE ORALLY [...] 1-2 TABLETS BY MOUTH A DAY, Pharmacy: [facility]/pharmacy #[id number] Start Date: 05/06/17 Status: Ordered levothyroxine 0.137 mg (137 mCg) oral tablet 137 mCg, = 1 Tablet, Orally, Daily, Maintenance, Dispense: 90 Tablet, Refills: 3, Total Refills: 3,09/13/16 12:56:01 EDT, [id number], 1 Tablet Orally Daily, Supply Start Date: 09/13/16 Status: Ordered losartan-hydroCHLOROthiazide 100mg-12.5mg oral tablet See Instructions, Soft Stop, Dispense: 45 Tablet, Refills: 3, Total Refills: 10, TAKE 1/2 TABLET BYMOUTH EVERY MORNING, 01/23/17 13:41:53 EST, [id number], TAKE 1/2 TABLET BY MOUTH [...] Total Refills: 3, 01/16/17 11:07:33 EDT, [id number], 1 Tablet Orally Daily, Supply Start Date: 01/16/17 Status: Ordered multivitamin Multiple Vitamins oral tablet 1 Tablet, Orally, Every Afternoon, Maintenance, 12/07/15 13:22:24 EDT, Supply Start Date: 12/07/15 Status: Ordered meXBT / [employer] Verio Test Strips Test blood sugar 2 times daily, Other, Unscheduled, Maintenance, 60 Each, Refills: 11, Total Refills: 11, Diagnosis : E11.9, 07/10/16 16:25:11 EDT, Pharmacy: [facility]/pharmacy #[id number], Test blood sugar 2 times daily Other Unscheduled,x30 Days,Instr:Diagnosis... Start Date: 07/10/16 Stop Date: 07/05/17 Status: Ordered potassium chloride 10 mEq oral capsule, extended release 10 mEq, = 1 Capsule, Orally, Daily, Maintenance, Dispense: 30 Capsule, Refills: 11, Total Refills: 11, 11/14/16 15:03:30 EDT, Pharmacy: [facility]/pharmacy #[id number], 1 Capsule Orally Daily [...] 4, 10/02/16 15:19:49 EDT, 12/26/17 15:19:49 EDT, [id number] [place] Foot&Ankle (from [id number]) in session 47, Supply Start Date: 10/02/16 [...] Recorded 1Result Comment: [facility] [id number] Procedures Procedure Date Related Diagnosis Body Site [...] 16at the same time as [facility] 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
--- OUTSIDE RECORDS SUMMARY | 2024-02-26 13:58 | XMS_ITS | Referral Summary ---
Author Organization [facility] Address Unknown Care Team Providers Care Refinisher Name Role Phone Rosmery May I Primary Care Physician Encounter Michi Fernando [id number] Date(s): 10/29/17 - 10/29/17 [facility] [address] [place] [address]- Attending Physician: Govind Gann III, MD Admitting Physician: Govind Gann III, MD Referring Physician: None, None Reason for Visit Post op, CO, SR, SS, XR, Surgery 10-07-17 Problem List Condition Effective Dates Status Health [...] provider: Rosmery May MD <content styleCode='Bold'>[id number]</content></br>[address] [facility] [place] [address] ALprazoLAM (ALprazoLAM 0.5 m g oral tablet, extended release) 1 tab(s) By mouth two times a day as needed prn anxiety. aripiprazole (Abilify) By mouth once a day. 1/2 a pill daily. aripiprazole (aripiprazole 5 mg oral tablet) 0.5 tab(s) By mouth At Bedtime. Refills: 0. Ordering provider: Vickey Samson MD <content styleCode='Bold'>[id number]</content></br>[address] [facility] [place] [address] aspirin (aspirin 81 mg oral tablet) 1 tab(s) By mouth At Bedtime. atenolol (atenolol 25 mg ora l tablet) 1 tab(s) By mouth Every Morning. Refills: 3. Ordering provider: Rosmery May MD <content styleCode='Bold'>[id number]</content></br>[address] [facility] [place] [address] atorvastatin (atorvastatin 4 0 mg oral tablet) 1 tab(s) By mouth At Bedtime. Refills: 3. Ordering provider: Rosmery May MD <content styleCode='Bold'>[id number]</content></br>[address] [facility] [place] [address] buPROPion (Wellbutrin XL 300 mg/24 hours oral [...] provider: Rosmery May MD <content styleCode='Bold'>[id number]</content></br>[address] [facility] [place] [address] furosemide (furosemide 20 mg oral tablet) 1 tab(s) By mouth two times a day. hydroCODONE-acetaminophen (N orco 5 mg-325 mg oral tablet) 1 tab(s) By mouth Every six hours as needed as needed for pain. Refills: 0. Ordering provider: Govind Gann III, MD <content styleCode='Bold'>[id number]</content></br>[address] [facility] [place] [address] iron polysaccharide (Ferrex- 150 oral capsule) 1 cap By mouth Every Saturday, Saturday and Saturday. levothyroxine (levothyroxine 0.137 mg (137 mCg) oral tablet) TAKE 1 TABLET BY MOUTH DAILY. Refills: 3. Ordering provider: Rosmery May MD <content styleCode='Bold'>[facility]</content></br>[address] [facility] [place] [address] lidocaine topical (Aspercrem e with Lidocaine 4% topical cream) 1 Amarjit to the skin three times a day as needed as needed for pain. applies to hand. losartan-hydroCHLOROthiazide (losartan-hydroCHLOROthiazide 100mg-12.5mg oral tablet) TAKE 1/2 TABLET BY MOUTH EVERY MORNING. Refills: 3. Ordering provider: Rosmery May MD <content styleCode='Bold'>[facility]</content></br>[address] [place] [facility] [place] [place] [address] lysine (lysine 500 mg oral t ablet) 1 tab(s) By mouth as needed for canker sore prevention. metFORMIN (metFORMIN 500 mg oral tablet) 1 tab(s) By mouth twice a day with meals. Refills: 3. Ordering provider: Rosmery May MD <content styleCode='Bold'>[facility]</content></br>[address] [facility] IN [facility] multivitamin (multivitamin M ultiple Vitamins oral tablet) 1 tab(s) By mouth Every Morning. polycarbophil (FiberCon 625 mg oral tablet) 1 tab(s) By mouth two times a day. potassium chloride (potassiu m chloride 10 mEq oral capsule, extended release) 1 cap By mouth once a day. Refills: 11. Ordering provider: Marco Antonio Ansari MD <content styleCode='Bold'>[facility]</content></br>[address] [facility] IN [facility] Unknown Med (OneTouch Verio Test Strips) Test blood sugar 2 times daily Other Unscheduled for 30 Days. Diagnosis : E11.9. Refills: 11. 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
--- OUTSIDE RECORDS SUMMARY | 2024-02-26 13:58 | XMS_ITS | Referral Summary ---
Author Organization [facility] Address Unknown Care Team Providers Care [place] Actor Name Role Phone Rosmery May I Primary Care Physician [phone] Encounter Michi Fernando [id number] Date(s): 08/27/17 - 11/15/17 [facility] [address] [place] [address]- Discharge Disposition: Routine Discharge Attending Physician: Govind Gnan III, MD Admitting Physician: Govind Gann III, MD Referring Physician: Govind Gann III, MD Reason for Visit Surgery 07-24-17, Rt SF mucous cyst excision w arthrotomy, No DOI Problem List Condition Effective Dates Status Health [...] Rosmery May MD <content styleCode='Bold'>[id number]</content></br>[address] [facility] IN [facility] ALprazoLAM (ALprazoLAM 0.5 m g oral tablet, extended release) 1 tab(s) By mouth two times a day as needed prn anxiety. aripiprazole (aripiprazole 5 mg oral tablet) 0.5 tab(s) By mouth At Bedtime. Refills: 0. Ordering provider: Vickey Samson MD <content styleCode='Bold'>[id number]</content></br>[address] [facility] [place] [address] aspirin (aspirin 81 mg oral tablet) 1 tab(s) By mouth At Bedtime. atenolol (atenolol 25 mg ora l tablet) 1 tab(s) By mouth Every Morning. Refills: 3. Ordering provider: Rosmery May MD <content styleCode='Bold'>[id number]</content></br>[address] [facility] [address] atorvastatin (atorvastatin 4 0 mg oral tablet) 1 tab(s) By mouth At Bedtime. Refills: 3. Ordering provider: Rosmery May MD <content styleCode='Bold'>[id number]</content></br>[address] [facility] [place] [address] buPROPion (Wellbutrin XL 300 mg/24 hours oral [...] 80mg. furosemide (furosemide 20 mg oral tablet) 1 tab(s) By mouth two times a day. iron polysaccharide (Ferrex- 150 oral capsule) 1 cap By mouth Every Saturday, Saturday and Saturday. levothyroxine (levothyroxine 0.137 mg (137 mCg) oral tablet) TAKE 1 TABLET BY MOUTH DAILY. Refills: 3. Ordering provider: Rosmery May MD <content styleCode='Bold'>[facility]</content></br>[address] [facility] [place] [address] lidocaine topical (Aspercrem e with Lidocaine 4% topical cream) 1 Amarjit to the skin three times a day as needed as needed for pain. applies to hand. losartan-hydroCHLOROthiazide (losartan-hydroCHLOROthiazide 100mg-12.5mg oral tablet) TAKE 1/2 TABLET BY MOUTH EVERY MORNING. Refills: 3. Ordering provider: Rosmery May MD <content styleCode='Bold'>[facility]</content></br>[address] [place] [address] lysine (lysine 500 mg oral t ablet) 1 tab(s) By mouth as needed for canker sore prevention. metFORMIN (metFORMIN 500 mg oral tablet) 1 tab(s) By mouth twice a day with meals. Refills: 3. Ordering provider: Rosmery May MD <content styleCode='Bold'>[facility]</content></br>[address] [facility] [place] [address] multivitamin (multivitamin M ultiple Vitamins oral tablet) 1 tab(s) By mouth Every Morning. polycarbophil (FiberCon 625 mg oral tablet) 1 tab(s) By mouth once a day. potassium chloride (potassiu m chloride 10 mEq oral capsule, extended release) 1 cap By mouth once a day. Refills: 11. Ordering provider: Marco Antonio Ansari MD <content styleCode='Bold'>[facility]</content></br>[address] [place] [facility] [place] [address] Unknown Med (OneTouch Verio Test Strips) Test blood sugar 2 times daily Other Unscheduled for 30 Days. Diagnosis : E11.9. Refills: 11. Ordering provider: Rosmery May MD <content styleCode='Bold'>[facility]</content></br>[address] [place] [facility] [place] [address] Immunizations Given and Recorded Vaccine Date Status Refusal Reason zoster vaccine, inactivated 06/04/17 Recorded influenza virus vaccine, inactivated 1 12/20/15 Gi adin NOS Influenza 12/09/14 Recorded pneumococcal 13-valent vaccine 09/20/14 Recorded tetanus/diphtheria/pertussis,acel (Tdap) 05/01/13 Recorded zoster vaccine live 03/18/12 Recorded pneumococcal 23-valent vaccine 03/18/11 Recorded 1Result Comment: [facility] 10337-015-24 Procedures Procedure Date Related Diagnosis Body Site [...] HTN, EF 60% 9Right 4th toe 10Dr [place] 11shoulder 12Normal 13Arthritis growth removed 14shoulder 15Also in 2010 16at the same time as [facility] 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
--- OUTSIDE RECORDS SUMMARY | 2024-02-26 13:58 | XMS_ITS | Referral Summary ---
Author Organization [facility] Address Unknown Care Team Providers Care Warehouse Distribution Specialist Name Role Phone Rosmery May I Primary Care Physician Encounter Tatijelly Fernando [id number] Date(s): 11/04/17 - 11/04/17 [facility] [address] [place], [place] [address]- [phone] Attending Physician: Rosmery May MD Admitting Physician: Rosmery May MD Referring Physician: None, None Reason for Visit awv Vital Signs Most recent to oldest [Reference Range]: 1 Blood Pressure [90-140/60-90 mmHg] 142/7 8mmHg *HI* (11/04/17 10:07 AM) Mean Arterial Pressure #1 Calculated 99 mmHg (11/04/17 10:07 AM) Height CM 154.9 cm (11/04/17 10:07 AM) Weight KG 95.1 kg (11/04/17 10:07 AM) BSAM2 Weight in kg 2.02 m2 (11/04/17 10:07 AM) BMI Weight in kg 39.6 kg/m2 (11/04/17 10:07 AM) [place] Body Weight 47.76 kg (11/04/17 10:07 AM) Problem List Condition Effective Dates Status [...] Rosmery May MD <content styleCode='Bold'>[id number]</content></br>[address] [place] [id number] ALprazoLAM (ALprazoLAM 0.5 m g oral tablet, extended release) 1 tab(s) By mouth two times a day as needed prn anxiety. aripiprazole (aripiprazole 5 mg oral tablet) 0.5 tab(s) By mouth At Bedtime. Refills: 0. Ordering provider: Vickey Samson MD <content styleCode='Bold'>[facility]</content></br>[address] [place] [address] aspirin (aspirin 81 mg oral tablet) 1 tab(s) By mouth At Bedtime. atenolol (atenolol 25 mg ora l tablet) 1 tab(s) By mouth Every Morning. Refills: 3. Ordering provider: Rosmery May MD <content styleCode='Bold'>[facility]</content></br>[address] [place] [address] atorvastatin (atorvastatin 4 0 mg oral tablet) 1 tab(s) By mouth At Bedtime. Refills: 3. Ordering provider: Rosmery May MD <content styleCode='Bold'>[facility]</content></br>[address] [facility] [place] [address] buPROPion (Wellbutrin XL 300 mg/24 hours oral [...] provider: Rosmery May MD <content styleCode='Bold'>[facility]</content></br>[address] [facility] [place] [address] lidocaine topical (Aspercrem e with Lidocaine 4% topical cream) 1 Amarjit to the skin three times a day as needed as needed for pain. applies to hand. losartan-hydroCHLOROthiazide (losartan-hydroCHLOROthiazide 100mg-12.5mg oral tablet) TAKE 1/2 TABLET BY MOUTH EVERY MORNING. Refills: 3. Ordering provider: Rosmery May MD <content styleCode='Bold'>[facility]</content></br>[address] [place] [address] lysine (lysine 500 mg oral t ablet) 1 tab(s) By mouth as needed for canker sore prevention. metFORMIN (metFORMIN 500 mg oral tablet) 1 tab(s) By mouth twice a day with meals. Refills: 3. Ordering provider: Rosmery May MD <content styleCode='Bold'>[facility]</content></br>[address] [place] [address] multivitamin (multivitamin M ultiple Vitamins oral tablet) 1 tab(s) By mouth Every Morning. polycarbophil (FiberCon 625 mg oral tablet) 1 tab(s) By mouth once a day. potassium chloride (potassiu m chloride 10 mEq oral capsule, extended release) 1 cap By mouth once a day. Refills: 11. Ordering provider: Marco Antonio Ansari MD <content styleCode='Bold'>[facility]</content></br>[address] [facility] IN [facility] Unknown Med (OneTouch Verio Test Strips) Test blood sugar 2 times daily Other Unscheduled for 30 Days. Diagnosis : E11.9. Refills: 11. Ordering provider: Rosmery May MD <content styleCode='Bold'>[facility]</content></br>[address] [place] [address] Immunizations Given and Recorded Vaccine Date Status Refusal Reason zoster vaccine, inactivated 06/04/17 Recorded influenza virus vaccine, inactivated 1 12/20/15 Gi adin NOS Influenza 12/09/14 Recorded pneumococcal 13-valent vaccine 09/20/14 Recorded tetanus/diphtheria/pertussis,acel (Tdap) 05/01/13 Recorded zoster vaccine live 03/18/12 Recorded pneumococcal 23-valent vaccine 03/18/11 Recorded 1Result Comment: [facility] 52458-055-92 Procedures Procedure Date Related Diagnosis Body Site [...] Curettage 1964 Co mpleted Tonsillectomy with adenoidectomy 194 Completed Amputation 19 Completed 1done two weeks apart, last 10/16 2Normal lifetime risk 3.3% 3Minimal atherosclerosis bilateral 4Mod 5auto-populated from documented surgical case 6IMA about 06/2014 7at [facility] approx 4.2014 8Mild , mild pulm HTN, EF 60% 9Right 4th toe 10Dr [place] 11shoulder 12Normal 13Arthritis growth removed 14shoulder 15Also in 2010 16at the same time as [facility] 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
--- OUTSIDE RECORDS SUMMARY | 2024-02-26 13:58 | XMS_ITS | Referral Summary ---
Author Organization [facility] Address Unknown Care Team Providers Care Supervisor Assembly Room Name Role Phone Rosmery May I Primary Care Physician [phone] Encounter Michi Fernando [id number] Date(s): 10/14/17 - 10/14/17 [facility] [address] [place] [address]- Attending Physician: Govind Gann III, MD Admitting Physician: Govind Gann III, MD Referring Physician: Govind Gann III, MD Reason for Visit OWW. 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 ALprazoLAM (ALprazoLAM 0.5 m g oral tablet, extended release) 1 tab(s) By mouth two times a day as needed prn anxiety. aripiprazole (aripiprazole 5 mg oral tablet) 0.5 tab(s) By mouth At Bedtime. Refills: 0. Ordering provider: Vickey Samson MD <content styleCode='Bold'>[facility]</content></br>[address] [place] [address] aspirin (aspirin 81 mg oral tablet) 1 tab(s) By mouth At Bedtime. atenolol (atenolol 25 mg ora l tablet) 1 tab(s) By mouth Every Morning. Refills: 3. Ordering provider: Rosmery May MD <content styleCode='Bold'>[facility]</content></br>[address] [place] [address] atorvastatin (atorvastatin 4 0 mg oral tablet) 1 tab(s) By mouth At Bedtime. Refills: 3. Ordering provider: Rosmery May MD <content styleCode='Bold'>[facility]</content></br>[address] [place] [address] buPROPion (Wellbutrin XL 300 mg/24 hours oral [...] provider: Rosmery May MD <content styleCode='Bold'>[facility]</content></br>[address] [facility] IN [facility] furosemide (furosemide 20 mg oral tablet) 1 tab(s) By mouth two times a day. hydroCODONE-acetaminophen (N orco 5 mg-325 mg oral tablet) 1 tab(s) By mouth Every 4 hours for 7 Days. Refills: 0. Ordering provider: Prabhakar Serrano PA-C <content styleCode='Bold'>[facility]</content></br>[address] [place] [address] iron polysaccharide (Ferrex- 150 oral capsule) 1 cap By mouth Every Saturday, Saturday and Saturday. levothyroxine (levothyroxine 0.137 mg (137 mCg) oral tablet) TAKE 1 TABLET BY MOUTH DAILY. Refills: 3. Ordering provider: Rosmery May MD <content styleCode='Bold'>[facility]</content></br>[address] [place] [address] lidocaine topical (Aspercrem e with Lidocaine 4% topical cream) 1 Amarjit to the skin three times a day as needed as needed for pain. applies to hand. losartan-hydroCHLOROthiazide (losartan-hydroCHLOROthiazide 100mg-12.5mg oral tablet) TAKE 1/2 TABLET BY MOUTH EVERY MORNING. Refills: 3. Ordering provider: Rosmery May MD <content styleCode='Bold'>[facility]</content></br>[address] [place] [address] lysine (lysine 500 mg oral t ablet) 1 tab(s) By mouth as needed for canker sore prevention. metFORMIN (metFORMIN 500 mg oral tablet) 1 tab(s) By mouth twice a day with meals. Refills: 3. Ordering provider: Rosmery May MD <content styleCode='Bold'>[facility]</content></br>[address] [facility] [place] [address] multivitamin (multivitamin M ultiple Vitamins oral tablet) 1 tab(s) By mouth Every Morning. polycarbophil (FiberCon 625 mg oral tablet) 1 tab(s) By mouth two times a day. potassium chloride (potassiu m chloride 10 mEq oral capsule, extended release) 1 cap By mouth once a day. Refills: 11. Ordering provider: Marco Antonio Ansari MD <content styleCode='Bold'>[facility]</content></br>[address] [place] [address] Unknown Med (OneTouch Verio Test Strips) Test blood sugar 2 times daily Other Unscheduled for 30 Days. Diagnosis : E11.9. Refills: 11. 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
== END 2024-02-23 12:42 | disposition home or self-care (01) ==
LOC: ED 12:37
PROVIDERS: Emergency Provider Emergency Medicine; PCP Family Medicine
DX: H11.32 Conjunctival hemorrhage, left eye (principal)
CPT/HCPCS: 99283

== ENCOUNTER 2024-04-06 16:30 | Outpatient (CLI) | payer OTHER, SELFPAY | END 2024-04-06 16:31 | disposition home or self-care (01) | LOC: NFLDREF 04-08 00:55 | PROVIDERS: PCP Family Medicine; Referring Provider Family Medicine; Visit Provider Family Medicine | DX: I10 Essential (primary) hypertension (principal); E11.9 Type 2 diabetes mellitus without complications; C34.92 Malignant neoplasm of unspecified part of left bronchus or lung; K76.0 Fatty (change of) liver, not elsewhere classified; D50.9 Iron deficiency anemia, unspecified | CPT/HCPCS: 85025 ==

== ENCOUNTER 2024-04-15 18:31 | Outpatient (CLI) | payer OTHER, SELFPAY | END 2024-04-15 18:32 | disposition home or self-care (01) | LOC: AMB 04-20 13:20 | PROVIDERS: PCP Family Medicine; Visit Provider Emergency Medicine | DX: R42 Dizziness and giddiness (principal) | CPT/HCPCS: A0425; A0429 ==

== ENCOUNTER 2024-04-15 19:03 | Emergency (ER) | payer OTHER, SELFPAY ==
[2024-04-15] VITALS (16 sets, daily range): BP systolic 127–150; BP diastolic 51–73; PULSE 62–76; RESP 18; TEMP 36.6; O2SAT 97–99; BMI 34.8
--- OUTSIDE RECORDS SUMMARY | 2024-04-15 19:06 | XMS_ITS | Clinical Summary ---
Author Organization [facility] Address [address] [place] [id number] Care Team Providers Care Lamination Builder Name Role Phone Unavailable Primary Care Provider Unavailabl e Source Comments Patient records contain information from all sites at [facility]. For routine questions regarding patient records, call [phone] during business hours, M-F 8:00 AM - 5:00 PM Central Time. Record requests for emergency care only can be directed to [phone] at any time.[facility] Allergies Active Allergy Reactions Criticality Noted Date [...] on file Legal Sex Female 9:48 AM MEDICAL LANGUAGE SPECIALIST Gender Identity Not on file Sexual Orientation Not on file Last Filed Vital Signs Vital Sign Reading Time Taken Comments Blood Pressure 135/44 04/29/2023 9:23 AM MEDICAL LANGUAGE SPECIALIST Pulse 76 04/29/2023 9:23 AM MEDICAL LANGUAGE SPECIALIST Temperature 36.1 C (97 F) 04/29/2023 9:23 AM MEDICAL LANGUAGE SPECIALIST Respiratory Rate - - Oxygen Saturation - - Inhaled Oxygen Concentration - - Weight 83.1 kg (183 lb 3.2 oz) 04/29/2023 9:23 A M MEDICAL LANGUAGE SPECIALIST Height - - Body Mass Index - - Plan of Treatment Health Maintenance Due Date Last Done Comments Zoster Vaccines (1 of 2) 05/13/2012 03/18/2012 RSV vaccine - (32-36 weeks) or 60+ years (1 - 1-dose 75+ series) 2016 Thyroid Stimulating Hormone (TSH) test for thyroid function 12/19/2022 12/19/2021, 03/01/2021 COVID-19 Vaccine ( season) 2023 01/18/2023, 08/30/2022, 01/23/2022, Additional history exists Influenza Vaccine (#1) 2023 , 01/02/2022, 12/14/2020, Additional history exists Depression Screening (Annual PHQ-2) 03/18/2024 Fall Risk Screen (Annual) 03/18/2024 Glucose Test for Med Monitoring 04/08/2024 04/08/2023, 06/07/2021, 12/11/2019, Additional history exists DTaP,Tdap,and Td Vaccines (3 - Td or Tdap) 06/08/2028 06/08/2018, 05/01/2013 Pneumococcal vaccine (50+ years) Completed 02/27/2022, 02/21/2022, 11/17/2019, Additional history exists HPV Vaccines Aged Out No longer eligi ble based on patient's age to complete this topic IPV Vaccines Aged Out No longer eligi ble based on patient's age to complete this topic Medical Devices Implanted Type Area Senior Procurement Manager Device Identifier Shelf Expiration Date Model / Serial / Lot Stent Other Stent Other [employer]
--- OUTSIDE RECORDS SUMMARY | 2024-04-15 19:07 | XMS_ITS | Clinical Summary ---
Author Organization [employer] [facility] Address [place], [place] [address] Care Team Providers Care Machinist Supervisor Outside Name Role Phone Andrew Rodríguez MD Primary Care Provider + Cori Payne MD Unavailable [phone] Arabella Diaz RN, BSN Unavailable GentryBeto MD Unavailable [phone] [facility] [place] Unavailable [facility] Unavailable Liset Welch BROOM BUILDER Unavailable Claudette Ansari MD Unavailable Jacquie, Davidson Mcgill [employer]KEIN [employer]ER Unavailable [phone] Allergies Active Allergy Reactions Criticality Noted Date Comments Penicillins Hives,Angioedema High 04/02/2018 Medications atorvastatin (LIPITOR) 40 mg tablet Take 1 tablet by mouth once daily. 9 Active levothyroxine (SYNTHROID) 137 mcg tablet Take 137 mcg by mouth once daily. 1 8 Active allopurinol (ZYLOPRIM) 100 mg tablet Take 200 mg by mouth once daily. Active loperamide (IMODIUM) 2 mg capsule Take 4mg by mouth with 1st loose stool, then 2mg with each subsequent loose stool. Max 16 mg in 24 hrs 0 2 Active amiodarone (CORDARONE) 200 mg tabletIndicati ons:Atypical atrial flutter (HC) Take 1 Tablet (200 mg) by mouth once daily. 90 Tablet 3 2 Active omeprazole (PRILOSEC) 20 mg Delayed-Releas e capsule TAKE 1 CAP BY MOUTH ONCE DAILY 3 Active Saccharomyces boulardii (FLORASTOR) 250 mg capsule Take 250 mg by mouth once daily. 3 Active Systane Complete 0.6 % ophthalmic solution INSTILL 1 DROP INTO BOTH FOUR TIMES A DAY FOR DRY EYES 3 Active valsartan (DIOVAN) 320 mg tablet Take 320 mg by mouth once daily. 3 Active amLODIPine (NORVASC) 5 mg tablet Take 5 mg by mouth once daily. 3 Active nystatin (MYCOSTATIN) 100,000 unit/gram topical cream Apply topically to affected area(s) at bedtime. 3 Active acetaminophen (TYLENOL EXTRA STRGTH) 500 mg tabletIndicati ons: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 Max acetaminophen dose: 4000mg in 24 hrs. 100 Tablet 04/09/2023 1:37 PM MIXING TANK OPERATOR 4 Active sennosides-doc usate (SENOKOT S) (8.6-50 mg) tabletIndicati ons: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) Take 1-4 Tablets by mouth 2 times daily if needed for Constipation. 25 Tablet 04/09/2023 1:37 PM MIXING TANK OPERATOR 4 Active lidocaine-pril ocaine (EMLA) 2.5-2.5 % creamIndicatio ns:Non-small cell cancer of left lung (HC) Apply 5 g topically to affected area(s) each time if needed (Prior to port access). Apply quarter size amount to port 30-40 minutes prior to port access. 30 g 2 4 Active QUEtiapine (SEROQUEL) 300 mg tabletIndicati ons:Bipolar I disorder (HC) TAKE 1 TABLET (300 MG) BY MOUTH AT BEDTIME. 90 Tablet 1 4 Active metFORMIN (GLUCOPHAGE XR) 500 mg Extended-Relea se tablet Take 2 Tablets by mouth once daily. 5 Active Saccharomyces boulardii (FLORASTOR) 250 mg capsule Take 250 mg by mouth once daily. 4 Active Active Problems Problem Noted Date Diagnosed [...] Encounters Date Type Department Care Team Description 04/15/2024 1:15 PM MIXING TANK OPERATOR Office Visit [facility] [address] [place] [address] Liset Welch, VINNY Follow Up (Non-small cell cancer of left lung) 04/15/2024 Travel 04/13/2024 1:17 PM MIXING TANK OPERATOR - 04/13/2024 11:59 PM MIXING TANK OPERATOR Hospital Encounter [facility] [address] [place] [address] Claudette Ansari MD 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) [C34.32] 04/13/2024 12:59 PM MIXING TANK OPERATOR - 04/13/2024 1:16 PM MIXING TANK OPERATOR Hospital Encounter [facility] [address] [place] [address] 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) [C34.32] 04/13/2024 Travel 03/02/2024 1:15 PM MIXING TANK OPERATOR Office Visit [facility] [address] [place] [address] Cori Payne MD Medication Management 03/02/2024 Travel 02/19/2024 Refill [facility] [address] [place] [address] Cori Payne MD Refill Request (Quetiapine) 02/07/2024 Telephone [facility] [id number] [place] [address] Reece Brito MD Results (LFTs and TSH) 02/07/2024 Telephone [facility] [address] [facility] [address] [place] [phone] Reece Brito MD Results (labs) 02/06/2024 1:00 PM MIXING TANK OPERATOR Office Visit [facility] [address] [place] [address] Reece Brito MD 02/06/[address] [facility] Scanner 1 scan: (1-Ord) [facility], 02/06/2024 02/06/2024 Transcribe Orders [facility] [address] [place] [address] [address] [place] [address] Reece Brito MD 01/31/2024 9:00 AM MIXING TANK OPERATOR Ancillary Procedure [facility] [address] [place] [address] 01/31/2024 Travel 01/16/2024 1:30 PM CDT Office Visit [facility] [address] [place] [address] Claudette Ansari MD Follow Up 01/16/2024 Travel from Last 3 Months Immunizations Name Administration Dates Next Due COVID-19 vaccine (Moderna 50 mcg/0.5mL) 12YO+ BIVALENT PF, MDV 08/30/2022 COVID-19 vaccine (Pfizer-Bio NTech 30mcg/0.3mL) PF, MDV 05/14/2020,04/23/2020 Covid-19 Vaccine (Unspecified) 05/02/2021,2020 Influenza Virus, Unspecified 11/30/2020,11/28/19 02 Influenza, High-dose Inactivated 12/16/2023 Influenza, High-dose Quadriv alent Inactivated 12/14/2022,01/02/2022,12/14/2020 Influenza, IIV3 (Age >=3 years) 12/20/1998 Influenza, [...] Answer Date Recorded PHQ-2 TOTAL SCORE 0 03/02/2024 Social Connections Answer Date Recorded Do you [...] is your housing situation today? 1 04/08/2023 Interpersonal Safety Answer Date Record ed Are you being hit, kicked, p ushed or yelled at (see row info)? No 04/08/2023 Interpersonal Safety Abuse 12 - 18 Not on file 04/08/2023 Interpersonal Safety Ambulatory Vulnerability No t on file 04/08/2023 Utilities Answer Date Recorded Do you have trouble paying f or utilities (for example, heat, electricity, water, phone)? 1 04/08/2023 Comments No Sex and Gender Information Value Date Recorded Sex Assigned at Not on file Legal Sex Female 12:56 PM MIXING TANK OPERATOR Gender Identity Not on file Sexual Orientation Not on file Obstetrics History Last Filed Vital Signs Vital Sign Reading Time Taken Comments Blood Pressure 112/56 04/15/2024 1:18 PM MIXING TANK OPERATOR Pulse 81 04/15/2024 1:18 PM MIXING TANK OPERATOR Temperature 36.3 C (97.4 F) 04/15/2024 1:18 PM MIXING TANK OPERATOR Respiratory Rate 18 04/15/2024 1:18 PM MIXING TANK OPERATOR Oxygen Saturation 94% 04/15/2024 1:18 PM MIXING TANK OPERATOR Inhaled Oxygen Concentration - - Weight 86.4 kg (190 lb 6.4 oz) 04/15/2024 1:18 P M MIXING TANK OPERATOR Height 152.3 cm (4' 11.96) 05/14/2023 10:14 AM MIXING TANK OPERATOR Body Mass Index 37.23 05/14/2023 10:14 AM MIXING TANK OPERATOR Plan of Treatment Upcoming Encounters Date Type Department Care Team (Late st Contact Info) Description 08/17/2024 1:15 PM CDT Appointment [facility] [address] [place] [address] 08/17/2024 1:30 PM CDT Appointment [address] [address] 08/20/2024 2:00 PM CDT Office Visit [facility] [address] [place] [address] Claudette Ansari MD [address] [place] [address] 10/05/2024 1:15 PM CDT Office Visit [facility] [address] [place] [address] Cori Payne MD [address] [place] [address] Health Maintenance Due Date Last Done Comments Zoster (shingles) series for age 50+ (1 of 2) 1960 DEXA/DXA scan for age 65+ 2006 Medicare Wellness for age 65+ 2006 RSV vaccine for adults or (1 - 1-dose 75+ series) 2016 COVID-19 vaccine series ( season) 2024 12/16/2023, 01/18/2023, 08/30/2022, Additional history exists BMI (ht and wt on same day) for age 18+ 03/28/2024 03/28/2023, 05/23/2022, 12/15/2020 Depression screening for age 12+ 03/02/2025 03/02/2024, 08/28/2023, 02/27/2023, Additional history exists Tetanus booster 06/08/2028 06/08/2018 Tdap Completed 06/08/2018 Pneumococcal series for age 50+ Completed 02/27/2022, 02/21/2022, 11/17/2019, Additional history exists Influenza for age 65+ Completed 12/16/2023 , 12/14/2022, 01/02/2022, Additional history exists Medical Devices Implanted Type Area Traffic Maintenance Supervisor Device Identifier Shelf Expiration Date Model / Serial / Lot Stent Uret [id number] Silhouette - [id number] Implanted:Qty: 1 on 05/03/2018 by Alin Miguel MD at [facility] Right: [employer] Suhas [id number]# / / [id number] Stent Uret [id number] Silhouette - [id number] Implanted:Qty: 1 on 05/03/2018 by Alin Miguel MD at [facility] Right: [employer] Suhas [id number]# / / [id number] Power Port Isp Mri 6fr [id number] - [id number] Implanted:Qty: 1 on 05/07/2023 by Jess Key DO at [facility] Right: Chest [employer] 08/15/2024 [id number] / / [id number] Procedures Procedure Name Priority Date/Time Associated Diagnosis Comments CT CHEST W Routine 04/13/2024 1:53 PM MIXING TANK OPERATOR 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) [C34.32] CBC WITH AUTO DIFFERENTIAL Timed 04/13/2024 1:14 PM MIXING TANK OPERATOR 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) [C34.32] COMP METABOLIC PANEL Today 04/13/2024 1:14 PM MIXING TANK OPERATOR 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) [C34.32] CBC WITH AUTO DIFFERENTIAL Today 04/13/2024 1:14 PM MIXING TANK OPERATOR 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) [C34.32] SCAN-LABORATORY REPORT 02/06/2024 12:00 AM MIXING TANK OPERATOR ECHO TTE COMPLETE WO CONTRAST Routine 01/31/2024 9:41 AM MIXING TANK OPERATOR Atrial fibrillation, unspecified type (HC) from Last 3 Months Results * CT CHEST W (04/13/2024 1:53 PM MIXING TANK OPERATOR) Anatomical Region Laterality Modality CHEST, THORAX, HEART Computed To mography 04/13/2024 8:24 PM MIXING TANK OPERATOR Narrative 04/13/2024 8:24 PM MIXING TANK OPERATOR For Patients: As a result of the Century Cures Act, medical imaging exams and procedure reports are released immediately into your electronic medical record. You may view this report before your referring provider. If you have questions, please contact your health care provider. Indication: Primary cancer of left lower lobe of lung, non-small cell lung cancer, status post resection, surveillance CT Technique: CT of the chest following 100 mL Omnipaque 300 IV contrast. Comparison: CT chest performed 01/13/2024 Findings: Lungs: Postoperative changes to the left lung again noted. There is a chronic small left effusion along with a few scattered small pulmonary nodules measuring up to 3-4 millimeters, unchanged from prior examination without new or enlarging nodule or mass lesion appreciated. Mediastinum: Aortic valve replacement. Calcified atherosclerosis. Lymph nodes: No gross lymphadenopathy. Upper abdomen: Cholelithiasis. Soft tissues: Unremarkable. Bones: Degenerative changes of the spine. Surgical anchors in the bilateral humeral heads. Impression: No significant interval change from prior examination. Postsurgical appearance to the chest again noted with no evidence of disease progression. Please note that all CT scans at this facility use dose modulation, iterative reconstruction, and/or weight-based dosing when appropriate to reduce radiation dose to as low as reasonably achievable. Dictated by Dejan Parham MD @ 04/13/2024 8:24:09 PM (Electronically Signed) Procedure Note Dejan Parham MD - 04/13/2024 For Patients: As a result of the Century Cures Act, medical imagingexams and procedure reports are released immediately into your electronicmedical record. You may view this report before your referring provider.If you have questions, please contact your health care provider. Indication: Primary cancer of left lower lobe of lung, non-small cell lung cancer,status post resection, surveillance CT Technique: CT of the chest following 100 mL Omnipaque 300 IV contrast. Comparison: CT chest performed 01/13/2024 Findings: Lungs: Postoperative changes to the left lung again noted. There is achronic small left effusion along with a few scattered small pulmonarynodules measuring up to 3-4 millimeters, unchanged from prior examinationwithout new or enlarging nodule or mass lesion appreciated. Mediastinum: Aortic valve replacement. Calcified atherosclerosis. Lymph nodes: No gross lymphadenopathy. Upper abdomen: Cholelithiasis. Soft tissues: Unremarkable. Bones: Degenerative changes of the spine. Surgical anchors in thebilateral humeral heads. Impression: No significant interval change from prior examination. Postsurgicalappearance to the chest again noted with no evidence of diseaseprogression. Please note that all CT scans at this facility use dose modulation,iterative reconstruction, and/or weight-based dosing when appropriate toreduce radiation dose to as low as reasonably achievable. Dictated by Dejan Parham MD @ 04/13/2024 8:24:09 PM (Electronically Signed) us Claudette Ansari MD CT Final Resu lt * (ABNORMAL) CBC WITH AUTO DIFFERENTIAL (04/13/2024 1:14 PM MIXING TANK OPERATOR) WHITE BLOOD COUNT 6.4 4.5 - 11.0 thou/cu mm 04/13/2024 1:19 PM MIXING TANK OPERATOR [facility] RED BLOOD COUNT 4.34 4.00 - 5.20 mil/cu mm 04/13/2024 1:19 PM [facility] HEMOGLOBIN 12.9 12.0 - 16.0 g/dL 04/13/2024 1:19 PM [facility] HEMATOCRIT 40.6 33.0 - 51.0 % 04/13/2024 1:19 PM [facility] MCV 94 80 - 100 fL 04/13/2024 1:19 PM [facility] MCH 29.7 26.0 - 34.0 pg 04/13/2024 1:19 PM [facility] MCHC 31.8(L) 32.0 - 36.0 g/dL 04/13/2024 1:19 PM [facility] RDW 14.7 11.5 - 15.5 % 04/13/2024 1:19 PM [facility] PLATELET COUNT 204 140 - 440 thou/cu mm 04/13/2024 1:19 PM [facility] MPV 10.0 6.5 - 11.0 fL 04/13/2024 1:19 PM [facility] % NEUT 68.5 % 04/13/2024 1:19 PM [facility] % LYMPH 20.7 % 04/13/2024 1:19 PM [facility] % MONO 7.2 % 04/13/2024 1:19 PM [facility] % EOS 3.0 % 04/13/2024 1:19 PM [facility] % BASO 0.6 % 04/13/2024 1:19 PM [facility] ABSOLUTE NEUTROPHILS 4.4 1.7 - 7.0 thou/cu mm 04/13/2024 1:19 PM [facility] ABSOLUTE LYMPHOCYTES 1.3 0.9 - 2.9 thou/cu mm 04/13/2024 1:19 PM [facility] ABSOLUTE MONOCYTES 0.5 <0.9 thou/cu mm 04/13/2024 1:19 PM [facility] ABSOLUTE EOSINOPHILS 0.2 <0.5 thou/cu mm 04/13/2024 1:19 PM [facility] ABSOLUTE BASOPHILS 0.0 <0.3 thou/cu mm 04/13/2024 1:19 PM [facility] Blood BLOOD SPECIMEN / Unknown Butterfly / Unknown 04/13/2024 1:14 PM MIXING TANK OPERATOR 04/13/2024 1:14 PM MIXING TANK OPERATOR [facility] - 04/13/2024 1:19 PM MIXING TANK OPERATOR This procedure was originally ordered at [facility]. This procedure was originally ordered at [facility]. us Claudette Ansari MD HEMATOLOGY Final Resu lt [facility] [address] [place] [address] * (ABNORMAL) COMP METABOLIC PANEL (04/13/2024 1:14 PM MIXING TANK OPERATOR) SODIUM 142 136 - 145 mmol/L 04/13/2024 1:34 PM [facility] POTASSIUM 4.2 3.5 - 5.1 mmol/L 04/13/2024 1:34 PM [facility] CHLORIDE 103 98 - 107 mmol/L 04/13/2024 1:34 PM [facility] CO2,TOTAL 24 22 - 29 mmol/L 04/13/2024 1:34 PM [facility] ANION GAP 15 5 - 18 04/13/2024 1:34 PM [facility] GLUCOSE 196(H) 70 - 99 mg/dL 04/13/2024 1:34 PM [facility] CALCIUM 9.9 8.8 - 10.4 mg/dL 04/13/2024 1:34 PM [facility] Comment: Reference ranges for this test were updated on 01/21/2024 to reflect our healthy population more accurately. Reference range changes are not retroactively applied to results, but previous results using the same methodology can be interpreted in the context of the new reference range. BUN 22 8 - 23 mg/dL 04/13/2024 1:34 PM [facility] CREATININE 1.21(H) 0.50 - 0.90 mg/dL 04/13/2024 1:34 PM [facility] BUN/CREAT RATIO 18 10 - 20 1:34 PM [facility] eGFR 45(L) >90 mL/min/1. 73m2 04/13/2024 1:34 PM [facility] Comment:As of 2021, eG FR is calculated by the CKD-EPI creatinine equation without race adjustment. eGFR can be influenced by muscle mass, exercise, and diet. The reported eGFR is an estimation only and is only applicable if the renal function is stable. ALBUMIN 4.3 4.0 - 4.9 g/dL 04/13/2024 1:34 PM [facility] PROTEIN,TOTAL 7.5 6.0 - 8.0 g/dL 04/13/2024 1:34 PM [facility] BILIRUBIN,TOTAL 0.3 0.0 - 1.2 mg/dL 04/13/2024 1:34 PM [facility] ALK PHOSPHATASE 110(H) 35 - 104 IU/L 04/13/2024 1:34 PM [facility] ALT (SGPT) 23 10 - 35 IU/L 04/13/2024 1:34 PM [facility] AST (SGOT) 38(H) 10 - 35 IU/L 04/13/2024 1:34 PM [facility] Blood BLOOD SPECIMEN / Unknown Butterfly / Unknown 04/13/2024 1:14 PM MIXING TANK OPERATOR 04/13/2024 1:14 PM MIXING TANK OPERATOR us Claudette Ansari MD CHEMISTRY Final Resu lt [facility] [address] [place] [address] * SCAN-LABORATORY REPORT (02/06/2024 12:00 AM MIXING TANK OPERATOR) us Scanner OTHER Final Result * ECHO TTE COMPLETE WO CONTRAST (01/31/2024 9:41 AM MIXING TANK OPERATOR) AORTIC VALVE MEAN PG 12 mmHg EJECTION FRACTION 62 % PEAK TR VELOCITY 2.9 m/s LVEDD 3.8 cm EJECTION FRACTION 60 - 65% Anatomical Region Laterality Modality Ultrasound 01/31/2024 9:09 AM MIXING TANK OPERATOR Narrative 01/31/2024 10:04 AM MIXING TANK OPERATOR ECHOCARDIOGRAM JOZEF THOMPSON : 1940 83 years Study Date: 01/31/2024 9:09:37 AM Gender: F BP: 118/57 mmHg Height: 150.00 cm BSA: 1.79 m Weight: 85.00 kg Tech: SHERITA Referring MD: LYNDON AYALA Site: [facility] Reading Location: Mobile OP Patient [...] . This study was interpreted by an [facility] accredited facility. CC: [facility]. Final Procedure Note Noel Josue MD - 01/31/2024 ECHOCARDIOGRAM JOZEF THOMPSON : 1940 83 years Study Date: 01/31/2024 9:09:37 AM Gender: F BP: 118/57 mmHg Height: 150.00 cm BSA: 1.79 m Weight: 85.00 kg Tech: MSR Referring MD: LYNDON AYALA Site: [facility] Reading Location: Mobile OP Patient [...] . This study was interpreted by an [facility] accredited facility. CC: [facility] (med records) [facility]. Final [facility] Uriah Ayala MD ECHO ORD Final Result from Last 3 Months Insurance [address] [facility] [place] [id number] [facility] A HB ONLY [address] [facility] [place] [id number] [place] [employer] MEDICARE PDGM Advance Directives * Full Code (Latest Code [...] Status Discussion: Per Existing Order Care Teams Machinist Supervisor Outside Relationship Specialty Start Date End Date Andrew Rodríguez MD [address] [place] [address] PCP - General Family Practice 09/08/21 Cori Payne MD [address] [place] [address] Psychiatry 09/08/21 Arabella Diaz RN, BSN [address] [place] [address] Nurse Navigator - Oncology Registered Nurse 03/27/23 Beto Rinaldi MD [address] [place] [address] Surgery - Cardiothoracic 03/28/23 [facility] [address] [place] [address] 04/10/23 Samina Hay RN [address] [place] [address] Nurse Navigator - Oncology Registered Nurse 04/15/23 Liset Welch, BROOM BUILDER [address] [place] [address] Nurse Practitioner Hematology and Oncology 04/29/23 Claudette Ansari MD [address] [place] [address] Medical Oncologist Hematology and Oncology 04/29/23 Davidson Dhillon LSW [address] [place] [address], [place] [id number] Seismic Survey Assistant 04/29/23
--- OUTSIDE RECORDS SUMMARY | 2024-04-15 19:07 | XMS_ITS | Data Portability ---
Author Organization [facility], [facility] Address [address] [place] [address] Care Team Providers Care Operations Chief Name Role Phone SAL RODRIGUES Primary Care Provider Assessment Encounter Date Assessment Date Assessment LastModified by Organization Details LastModified Time 11/30/2021 11/30/2021 81 year old female with history of kidney stones and kidney disease. Patient more so had questions regarding her kidney disease. I explained that her primary care should refer her to a district extension service agent if necessary. I encouraged her to speak [...] recorded. Lab urinalysis , dipstick 2021 022 [facility], [address], [address], [place], [address], 13:05:21 Referral None recorded. Procedures None recorded. Surgeries None recorded. Imaging None recorded. Medication Orders None recorded. Patient TargetsNo targets recorded. Patient InstructionsNo instructions recorded. Reason for Referral None Reported. Results Created Date Observation Date Name Description Value Unit Range Abnormal Flag Note LastModifiedBy Organization Detail LastModifiedTime 12/01/19 22 11/30/2021 UA DIP CS ADVAN TUS color -advantus Yellow yellow Not Available [facility] [address], [place], [address], 11/30/2021 13:05:21 12/01/19 22 11/30/2021 UA DIP CS ADVAN TUS appearance -advantus Sl Cloudy clear abnormal Not Available [facility] [address] [place] [address] [address], [place], [address], 11/30/2021 13:05:21 12/01/19 22 11/30/2021 UA DIP CS ADVAN TUS glucose -advantus 500 mg/dL negati ve abnormal Not Available [facility] [address] [place] [address], [place], [address], 11/30/2021 13:05:21 12/01/19 22 11/30/2021 UA DIP CS ADVAN TUS bilirubin -advantus Negati ve negati ve Not Available [facility] [address] [place] [address] [address], [place], [address], 11/30/2021 13:05:21 12/01/19 22 11/30/2021 UA DIP CS ADVAN TUS ketones -advantus Negati ve mg/dL negati ve Not Available [facility] [address] [place] [address], [place], [address], 11/30/2021 13:05:21 12/01/19 22 11/30/2021 UA DIP CS ADVAN TUS sp. gravity -advantus 1.020 1.010- 1.025 Not Available [facility] [address] [place] [address], [place], [address], 11/30/2021 13:05:21 12/01/19 22 11/30/2021 UA DIP CS ADVAN TUS pH -advantus 6.0 5.0-8. 0 Not Available [facility] [address] [place] [address] [address], [place], [address], 11/30/2021 13:05:21 09/15/20 22 11/30/2021 UA DIP CS ADVAN TUS protein -advantus Negati ve mg/dL negati ve Not Available [facility] [address], [place], [address], 11/30/2021 13:05:21 12/01/19 22 11/30/2021 UA DIP CS ADVAN TUS urobilinogen -advantus 0.2 normal Not Available [facility] [address] [place] [address] [address], [place], [address], 11/30/2021 13:05:21 12/01/19 22 11/30/2021 UA DIP CS ADVAN TUS nitrites -advantus Negati ve negati ve Not Available [facility] [address] [place] [address] [address], [place], [address], 11/30/2021 13:05:21 12/01/19 22 11/30/2021 UA DIP CS ADVAN TUS blood -advantus Negati ve negati ve Not Available [facility] [address] [place] [address] [address], [place], [address], 11/30/2021 13:05:21 12/01/19 22 11/30/2021 UA DIP CS ADVAN TUS leukocytes -advantus Modera te negati ve abnormal Not Available [facility] [address] [place] [address], [place], [address], 11/30/2021 13:05:21 12/01/19 22 11/30/2021 UA DIP CS ADVAN TUS performed by Jeana Wasserman Not Available [facility] [address] [place] [address] [address], [place], [address], 11/30/2021 13:05:21 12/01/19 22 11/30/2021 UA DIP [...] ----- ----- ----- ----- ---- Not Available [facility] [address] [place] [address], [place], [address], 11/30/2021 13:05:21 12/01/19 22 11/30/2021 UA MICRO SCOPI C U-WBC 10 - 25 [hpf] 0 - 2 abnormal Not Available [facility] [address] [place] [address], [place], [address], 11/30/2021 13:05:27 12/01/19 22 11/30/2021 UA MICRO SCOPI C U-RBC 0 - 2 [hpf] 0 - 2 Not Available [facility] [address] [place] [address], [place], [address], 11/30/2021 13:05:27 12/01/19 22 11/30/2021 UA MICRO SCOPI C bacteria Modera te [hpf] negati ve abnormal Not Available [facility] [address] [place] [address], [place], [address], 11/30/2021 13:05:27 12/01/19 22 11/30/2021 UA MICRO SCOPI C squamous epi Modera te /lpf negati ve,sma ll abnormal Not Available [facility] [address], [place], [address], 11/30/2021 13:05:27 12/01/19 22 11/30/2021 URINE CULTU RE final report Microb iology result s SOURC E Void KNOWN ALLER GIES na TREAT MENT na MEDIA PLATE D AT: Media plate d on 2021 @ 3:17 PM COLON Y COUNT >100, 000 cfu/m l RESUL T Mixed Growt h,Mul tiple Gram Posit carissa Morph ologi c Types ,No Furth er Scooby p Not Available [facility] [address], [place], [address], 12/02/2021 10:00:13 11/02/19 22 06/07/2021 CT, abdom [...] completed Not Available Health Note 11/28/2021 12:18:35 Excision epiphyseal bar completed Not Available Health Note [...] Name and Address Organization Details Recorded Time [id number] Product containin g penicilli n and antibioti c (product) medicatio n hives Not available Not available 11/04/2021 [id number] 05 SNOMED swell ing and hives Not Available Not Available Not Available Medications Name Sig Start Date Stop Date [...] Address Organization Details Last Updated DateTime 11/30/2021 13052.18 g 152.4 cm Yazmin Rodriguez [facility] 11/30/2021 11:15:56 Date Recorded Body mass [...] o Information not available 11/30/2021 Preferred Language Belarusian Information not available 11/30/2021 Number Of Pregnancies [...] Unspecified Relation Family history of diabetes mellitus [email or web address] Not available 2021 14:41:20 Father Family history of cardiac disorder [email or web address] Not available 2021 14:41:20 Mother Family history of malignant neoplasm [email or web address] Not available 2021 14:41:20 Medical History Condition Response Other N High Blood Pressure Y Kidney Stones Y Lung Disease N Depression Y GERD/Acid Reflux N Diabetes Y Sexually Transmitted Infection N Bleeding Disorder N Cancer N High Cholesterol Y Heart Disease Y Gynecological History Statement/Question Response If Post Menopausal, Age at Menopause 46 Hormone Therapy N Sexually Active? N Obstetrics History GPAL:G 0 P 0 0 0 0 Immunizations Vaccine Type Date Status Note Provider Nam e and Address Organization Details Recorded Time SARS-COV-2 (COVID-19) vaccine, UNSPECIFIED 2 completed Not Available Health Note 11/04/2021 14:41:26 influenza, unspecified formulation 1 completed Not Available Health Note 11/04/2021 14:41:26 pneumococcal, unspecified formulation 2 completed Not Available Health Note 11/04/2021 14:41:26 SARS-COV-2 (COVID-19) vaccine, UNSPECIFIED 1 completed Not Available Health Note 11/28/2021 12:18:41 influenza, unspecified formulation 2 completed Not Available Health Note 11/28/2021 12:18:41 pneumococcal, unspecified formulation 0 completed Not Available Health Note 11/28/2021 12:18:41 Past Encounters Encounter ID Performer Location Encounter Start Date Encounter Closed Date Diagnosis/Indication Diagnosis SNOMED-CT Code Diagnosis ICD10 Code Diagnosis Note [id number] [facility] [address] [facility],[address] [address] 11/30/2021 10:56:09 11/30/2021 12:06:56 History of calculus of kidney 659767551 Z87.442 Health Concerns Section Related Observation LastModified by Organization Detai ls LastModified Time None Recorded Concern Status LastModified by Organization Details LastModified Time None Recorded Advance Directives Directive None Recorded Payers Encounter Date Sequence Insurance Name Policy Number Policy Osorio Covered Member ID Osorio Member ID Guarantor Name 11/30/2021 1 [employer] - DOS ON OR AFTER 19 (MEDICARE REPLACEMENT/ ADVANTAGE - HMO) [id number] Annabella Longoria [id number] Annabella Longoria Notes Date Note Type Note Provider Name and Address Organization Details Recorded Time 11/30/2021 text/html This is a 81 yea r old female with history of kidney stones here for follow up.She reports recent diagnosis of stage 3 kidney disease.She has a history of kidney stones (s/p [facility]SW[place] in [place] - 2015), Right ureteroscopy with laser lithotripsy, [...] children, all vaginal deliveries. Monse Slaughter PA-C [address] [facility],[address], [place], [address], [facility] 11/30/2021 14:53:43 OBGyn Episode No OBEpisode recorded.
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
--- OUTSIDE RECORDS SUMMARY | 2024-04-15 19:37 | XMS_ITS | Clinical Summary ---
Author Organization [facility] Address [place], [place] [address] Care Team Providers Care Radio Program Director Name Role Phone Andrew Rodríguez MD Primary Care Provider + Cori Payne MD Unavailable [phone] Arabella Diaz RN, BSN Unavailable GentryBeto MD Unavailable [facility] [place] Unavailable [phone] [facility] Unavailable Liset Welch SKIVING MACHINE OPERATOR Unavailable Claudette Ansari MD Unavailable Jacquie, Davidson Mcgill HAND MOUNTER Unavailable [phone] Allergies Active Allergy Reactions Criticality Noted [...] 24 hrs. 100 Tablet 04/09/2023 1:37 PM CHARACTER ARTIST 4 Active sennosides-doc usate (SENOKOT S) (8.6-50 mg) tabletIndicati ons: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) Take 1-4 Tablets by mouth 2 times daily if needed for Constipation. 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 [id number] [place] [address] Reece Brito MD Results (LFTs and TSH) 02/07/[address] [facility] [address] [facility] [address] [place] [phone] Reece Brito MD Results (labs) 02/06/2024 1:00 PM CHARACTER ARTIST Office Visit [facility] [address] [place] [address] Reece Brito MD 02/06/2024 Orders Only [facility] Scanner 1 scan: (1-Ord) [facility] MULTIPLE [facility], 02/06/2024 02/06/2024 Transcribe Orders [facility] [address] [place] [address] [address] [place] [address] Reece Brito MD 01/31/2024 9:00 AM CHARACTER ARTIST Ancillary Procedure [facility] [address] [place] [address] 01/31/2024 Travel 01/16/2024 1:30 PM CDT Office Visit [facility] [address] [place] [address] Claudette Ansari MD Follow Up 01/16/2024 Travel [...] on file Legal Sex Female 12:56 PM CHARACTER ARTIST Gender Identity Not on file Sexual Orientation Not on file Obstetrics History Last Filed Vital Signs Vital Sign Reading Time Taken Comments Blood Pressure 112/56 04/15/2024 1:18 PM CHARACTER ARTIST Pulse 81 04/15/2024 1:18 PM CHARACTER ARTIST Temperature 36.3 C (97.4 F) 04/15/2024 1:18 PM CHARACTER ARTIST Respiratory Rate 18 04/15/2024 1:18 PM CHARACTER ARTIST Oxygen Saturation 94% 04/15/2024 1:18 PM CHARACTER ARTIST Inhaled Oxygen Concentration - - Weight 86.4 kg (190 lb 6.4 oz) 04/15/2024 1:18 P M CHARACTER ARTIST Height 152.3 cm (4' 11.96) 05/14/2023 10:14 AM CHARACTER ARTIST Body Mass Index 37.23 05/14/2023 10:14 AM CHARACTER ARTIST Plan of Treatment Upcoming Encounters Date Type Department Care Team (Late st Contact Info) Description 08/17/2024 1:15 PM CDT Appointment [facility] [address] [place] [address] 08/17/2024 1:30 PM CDT Appointment [address] [address] 08/20/2024 2:00 PM CDT Office Visit [facility] [address] [place] [address] Claudette Ansari MD [address] [place] [address] 10/05/2024 1:15 PM CDT Office Visit [facility] [address] [place] [address] Cori Payne MD [address] [place] [address] Health Maintenance Due Date Last Done Comments [...] history exists Medical Devices Implanted Type Area Radio Program Director Device Identifier Shelf Expiration Date Model / Serial / Lot Stent Uret [id number] Silhouette - [id number] Implanted:Qty: 1 on 05/03/2018 by Alin Miguel MD at [facility] Right: [employer] Suhas B3836# / / [id number] Stent Uret [id number] Silhouette - [id number] Implanted:Qty: 1 on 05/03/2018 by Alin Miguel MD at [facility] Right: [employer] Suhas B3836# / / [id number] Power Port Isp Mri 6fr [id number] - [id number] Implanted:Qty: 1 on 05/07/2023 by Jess Key DO at [facility] Right: Chest [employer] 08/15/2024 [id number] / / [id number] Procedures Procedure Name Priority Date/Time Associated Diagnosis Comments CT CHEST W Routine 04/13/2024 1:53 PM CHARACTER ARTIST 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) [C34.32] CBC WITH AUTO DIFFERENTIAL Timed 04/13/2024 1:14 PM CHARACTER ARTIST 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) [C34.32] COMP METABOLIC PANEL Today 04/13/2024 1:14 PM CHARACTER ARTIST 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) [C34.32] CBC WITH AUTO DIFFERENTIAL Today 04/13/2024 1:14 PM CHARACTER ARTIST 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) [C34.32] SCAN-LABORATORY REPORT 02/06/2024 12:00 AM CHARACTER ARTIST ECHO TTE COMPLETE WO CONTRAST Routine 01/31/2024 9:41 AM CHARACTER ARTIST Atrial fibrillation, unspecified type (HC) from Last 3 Months Results * CT CHEST W (04/13/2024 1:53 PM CHARACTER ARTIST) Anatomical Region Laterality Modality CHEST, THORAX, HEART Computed To mography 04/13/2024 8:24 PM CHARACTER ARTIST Narrative 04/13/2024 8:24 PM CHARACTER ARTIST For Patients: As a result of the [...] CBC WITH AUTO DIFFERENTIAL (04/13/2024 1:14 PM CHARACTER ARTIST) WHITE BLOOD COUNT 6.4 4.5 - 11.0 thou/cu mm 04/13/2024 1:19 PM CHARACTER ARTIST [facility] RED BLOOD COUNT 4.34 4.00 - 5.20 mil/cu mm 04/13/2024 1:19 PM [facility] HEMOGLOBIN 12.9 12.0 - 16.0 g/dL 04/13/2024 1:19 PM [facility] HEMATOCRIT 40.6 33.0 - 51.0 % 04/13/2024 1:19 PM [facility] MCV 94 80 - 100 fL 04/13/2024 1:19 PM [facility] MCH 29.7 26.0 - 34.0 pg 04/13/2024 1:19 PM [facility] MCHC 31.8(L) 32.0 - 36.0 g/dL 04/13/2024 1:19 PM [facility] RDW 14.7 11.5 - 15.5 % 04/13/2024 1:19 PM [facility] PLATELET COUNT 204 140 - 440 thou/cu mm 04/13/2024 1:19 PM [facility] MPV 10.0 6.5 - 11.0 fL 04/13/2024 1:19 PM [facility] % NEUT 68.5 % 04/13/2024 1:19 PM [facility] % LYMPH 20.7 % 04/13/2024 1:19 PM [facility] % MONO 7.2 % 04/13/2024 1:19 PM [facility] % EOS 3.0 % 04/13/2024 1:19 PM [facility] % BASO 0.6 % 04/13/2024 1:19 PM [facility] ABSOLUTE NEUTROPHILS 4.4 1.7 - 7.0 thou/cu mm 04/13/2024 1:19 PM [facility] ABSOLUTE LYMPHOCYTES 1.3 0.9 - 2.9 thou/cu mm 04/13/2024 1:19 PM [facility] ABSOLUTE MONOCYTES 0.5 <0.9 thou/cu mm 04/13/2024 1:19 PM [facility] ABSOLUTE EOSINOPHILS 0.2 <0.5 thou/cu mm 04/13/2024 1:19 PM [facility] ABSOLUTE BASOPHILS 0.0 <0.3 thou/cu mm 04/13/2024 1:19 PM [facility] Blood BLOOD SPECIMEN / Unknown Butterfly / Unknown 04/13/2024 1:14 PM CHARACTER ARTIST 04/13/2024 1:14 PM CHARACTER ARTIST [facility] - 04/13/2024 1:19 PM CHARACTER ARTIST This procedure was originally ordered at [facility]. This procedure was originally ordered at [facility]. us Claudette Ansari MD HEMATOLOGY Final Resu lt [facility] [address] [place] [address] * (ABNORMAL) COMP METABOLIC PANEL (04/13/2024 1:14 PM CHARACTER ARTIST) SODIUM 142 136 - 145 mmol/L 04/13/2024 1:34 PM [facility] POTASSIUM 4.2 3.5 - 5.1 mmol/L 04/13/2024 1:34 PM [facility] CHLORIDE 103 98 - 107 mmol/L 04/13/2024 1:34 PM [facility] CO2,TOTAL 24 22 - 29 mmol/L 04/13/2024 1:34 PM [facility] ANION GAP 15 5 - 18 04/13/2024 1:34 PM [facility] GLUCOSE 196(H) 70 - 99 mg/dL 04/13/2024 1:34 PM [facility] CALCIUM 9.9 8.8 - 10.4 mg/dL 04/13/2024 1:34 PM [facility] Comment: Reference ranges for this test were updated on 01/21/2024 to reflect our healthy population more accurately. Reference range changes are not retroactively applied to results, but previous results using the same methodology can be interpreted in the context of the new reference range. BUN 22 8 - 23 mg/dL 04/13/2024 1:34 PM [facility] CREATININE 1.21(H) 0.50 - 0.90 mg/dL 04/13/2024 1:34 PM [facility] BUN/CREAT RATIO 18 10 - 20 1:34 PM [facility] eGFR 45(L) >90 mL/min/1. 73m2 04/13/2024 1:34 PM [facility] Comment:As of 2021, eG FR is calculated by the CKD-EPI creatinine equation without race adjustment. eGFR can be influenced by muscle mass, exercise, and diet. The reported eGFR is an estimation only and is only applicable if the renal function is stable. ALBUMIN 4.3 4.0 - 4.9 g/dL 04/13/2024 1:34 PM [facility] PROTEIN,TOTAL 7.5 6.0 - 8.0 g/dL 04/13/2024 1:34 PM [facility] BILIRUBIN,TOTAL 0.3 0.0 - 1.2 mg/dL 04/13/2024 1:34 PM [facility] ALK PHOSPHATASE 110(H) 35 - 104 IU/L 04/13/2024 1:34 PM [facility] ALT (SGPT) 23 10 - 35 IU/L 04/13/2024 1:34 PM [facility] AST (SGOT) 38(H) 10 - 35 IU/L 04/13/2024 1:34 PM [facility] Blood BLOOD SPECIMEN / Unknown Butterfly / Unknown 04/13/2024 1:14 PM CHARACTER ARTIST 04/13/2024 1:14 PM CHARACTER ARTIST us Claudette Ansari MD CHEMISTRY Final Resu lt [facility] [address] [place] [address] * SCAN-LABORATORY REPORT (02/06/2024 12:00 AM CHARACTER ARTIST) us Scanner OTHER Final Result * ECHO TTE COMPLETE WO CONTRAST (01/31/2024 9:41 AM CHARACTER ARTIST) AORTIC VALVE MEAN PG 12 mmHg EJECTION FRACTION 62 % PEAK TR VELOCITY 2.9 m/s LVEDD 3.8 cm EJECTION FRACTION 60 - 65% Anatomical Region Laterality Modality Ultrasound 01/31/2024 9:09 AM CHARACTER ARTIST Narrative 01/31/2024 10:04 AM CHARACTER ARTIST ECHOCARDIOGRAM JOZEF THOMPSON : 1940 83 years Study Date: 01/31/2024 9:09:37 AM Gender: F BP: 118/57 mmHg Height: 150.00 cm BSA: 1.79 m Weight: 85.00 kg Tech: SHERITA Referring MD: LYNDON AYALA Site: [facility] Reading Location: Mobile OP Patient [...] study was interpreted by an [facility] accredited facility. CC: [facility] (formerly [facility]) [facility]. Final Procedure Note Noel Josue MD - 01/31/2024 ECHOCARDIOGRAM JOZEF THOMPSON : 1940 83 years Study Date: 01/31/2024 9:09:37 AM Gender: F BP: 118/57 mmHg Height: 150.00 cm BSA: 1.79 m Weight: 85.00 kg Tech: MSR Referring MD: LYNDON AYALA Site: [facility] Reading Location: Mobile OP Patient [...] study was interpreted by an [facility] accredited facility. CC: [facility] (med records) [facility]. Final [facility] Uriah Ayala MD ECHO ORD Final Result from Last 3 Months Insurance [id number] [facility] [place] [id number] [facility] A HB ONLY [address] [facility] [place] [id number] [place] [employer] MEDICARE PDGM Advance Directives * [...] Status Discussion: Per Existing Order Care Teams Radio Program Director Relationship Specialty Start Date End Date Andrew Rodríguez MD [address] [place] [address] PCP - General Family Practice 09/08/21 Cori Payne MD [address] [place] [address] Psychiatry 09/08/21 Arabella Diaz RN, BSN [address] [place] [address] Nurse Navigator - Oncology Registered Nurse 03/27/23 Beto Rinaldi MD [address] [place] [address] Surgery - Cardiothoracic 03/28/23 [facility] [address] [place] [address] 04/10/23 Samina Hay RN [address] [place] [address] Nurse Navigator - Oncology Registered Nurse 04/15/23 Liset Welch, SKIVING MACHINE OPERATOR [address] [place] [address] Nurse Practitioner Hematology and Oncology 04/29/23 Claudette Ansari MD [address] [place] [address] Medical Oncologist Hematology and Oncology 04/29/23 Davidson Dhillon LSW [address] [place] [address], [place] [address] Boiler Out 04/29/23
--- OUTSIDE RECORDS SUMMARY | 2024-04-15 19:37 | XMS_ITS | Clinical Summary ---
Author Organization [facility] Address [address] [place] [address] Care Team Providers Care It Security Project Manager Name Role Phone Unavailable Primary Care Provider Unavailabl e Source Comments Patient records contain information from all sites at [facility]. For routine questions regarding patient records, call [phone] during business hours, M-F 8:00 AM - 5:00 PM Central Time. Record requests for emergency care only can be directed to [phone] at any time.[facility] Allergies Active Allergy Reactions Criticality [...] on file Legal Sex Female 9:48 AM TOOLING MECHANIC Gender Identity Not on file Sexual Orientation Not on file Last Filed Vital Signs Vital Sign Reading Time Taken Comments Blood Pressure 135/44 04/29/2023 9:23 AM TOOLING MECHANIC Pulse 76 04/29/2023 9:23 AM TOOLING MECHANIC Temperature 36.1 C (97 F) 04/29/2023 9:23 AM TOOLING MECHANIC Respiratory Rate - - Oxygen Saturation - - Inhaled Oxygen Concentration - - Weight 83.1 kg (183 lb 3.2 oz) 04/29/2023 9:23 A M TOOLING MECHANIC Height - - Body Mass Index - [...] this topic Medical Devices Implanted Type Area Ship Design Teacher Device Identifier Shelf Expiration Date Model / Serial / Lot Stent Other Stent Other Heart Insurance [facility]
[2024-04-15 20:29] LABS: PCR FLU A Negative PCR FLU A (Negative); PCR FLU B Negative PCR FLU B (Negative); PCR RSV Negative PCR RSV (Negative); SARS PCR* Negative SARS-CoV-2 (Negative)
[2024-04-15 20:39] LABS: Chloride* 104 mmol/L (96-114); Sodium* 139 mmol/L (135-149)
[2024-04-15 20:42] LABS: Creatinine* 1.4 mg/dL (0.5-1.5); Estimated Glomerular Filt Rate 38 ml/min
[2024-04-15 20:43] LABS: Anion Gap 12 mEq/L (7-15); Blood Urea Nitrogen* 31 mg/dL (7-30); Calcium* 9.1 mg/dL (8.4-10.6); Carbon Dioxide* 23 mmol/L (20-32); Glucose* 230 mg/dL (60-115)
[2024-04-15 20:46] LABS: C Reactive Protein* 0.9 mg/dL (0.5-1.0)
[2024-04-15 20:49] LABS: Basophils Absolute Auto 0.03 K/uL (0.00-0.30); Basophils Percent Auto 0.5 % (0.0-3.0); Eosinophils Absolute Auto 0.19 K/uL (0.00-0.50); Eosinophils Percent Auto 3.5 % (0.0-7.0); Hematocrit 39.2 % (33.0-51.0); Hemoglobin* 12.2 gm/dL (12.0-16.0); Immature Granulocytes Abs Auto 0.05 K/uL (0.00-0.30); Immature Granulocytes Pct Auto 0.9 %; Lymphocytes Percent Auto 19.4 % (20-44); Mean Corpuscular HGB Conc 31 gm/dL (32-36); Mean Corpuscular Hemoglobin 29 pg (26-34); Mean Corpuscular Volume 93 fL (80-100); Monocytes Percent Auto 7.9 % (0.0-11.0); Neutrophils Percent Auto 67.8 % (42.0-72.0); Platelet Count* 178 K/uL (140-440); RDW Coefficient of Variation % 14.1 % (11.5-15.5); Red Blood Count 4.21 m/uL (4.00-5.20); White Blood Count* 5.46 K/uL (4.50-11.00)
[2024-04-15 20:54] LABS: Appearance Urine Cloudy (Clear); Bilirubin Urine Negative (Negative); Blood Urine Negative (Negative); Color Urine Yellow (Yellow); Glucose Urine Trace (Negative); Ketones Urine Negative (Negative); Leukocyte Esterase Urine 1+ (Negative); Nitrite Urine Negative (Negative); Protein Urine Trace (Negative); Specific Gravity Urine 1.025 (1.000-1.030); Urobilinogen Urine 0.2 (0.2-1.0)
[2024-04-15 20:59] LABS: Slide Review Reflex No
[2024-04-15] MEDS: 0.9 % SODIUM CHLORIDE 500 ML 500 ML IV (21:26)
[2024-04-15 21:55] LABS: Bacteria Urine Moderate; Squamous Epithelial Cell Urine Few (None-Few)
== END 2024-04-15 22:22 | disposition home or self-care (01) ==
PROVIDERS: Emergency Provider Emergency Medicine; PCP Family Medicine
DX: R53.1 Weakness (principal)
CPT/HCPCS: 36415; 80048; 81001; 84484; 85025; 86140; 87086; 87631; 93005; 99283; 99284; J7030

== ENCOUNTER 2024-07-23 11:15 | Outpatient (CLI) | payer OTHER, SELFPAY ==
[2024-07-23 14:23] LABS: Creatinine Urine 81.9 mg/dL
[2024-07-23 14:43] LABS: Microalbumin Creatinine Ratio 10 mg/g (0-30); Microalbumin Urine 1 mg/dL
== END 2024-07-23 11:16 | disposition home or self-care (01) ==
PROVIDERS: PCP Family Medicine; Visit Provider Family Medicine
DX: E11.65 Type 2 diabetes mellitus with hyperglycemia (principal); I10 Essential (primary) hypertension; R53.83 Other fatigue; R82.90 Unspecified abnormal findings in urine; Z79.84 Long term (current) use of oral hypoglycemic drugs
CPT/HCPCS: 80048; 82043; 82570; 82728; 84443; 85025; 87086

== ENCOUNTER 2024-08-25 16:03 | Outpatient (CLI) | payer OTHER, SELFPAY ==
[2024-08-25 16:31] LABS: Creatinine* 1.2 mg/dL (0.5-1.5); Estimated Glomerular Filt Rate 45 ml/min
--- NOTE | 2024-08-25 16:45 | CRLHL7_ITS ---
For Patients: As a result of the Century Cures Act, medical imaging exams and procedure reports are released immediately into your electronic medical record. You may view this report before your referring provider. If you have questions, please contact your health care provider. EXAM: CT OF THE PELVIS, WITH IV CONTRAST CLINICAL INDICATION: Right hip pain. History of lung carcinoma. COMPARISON STUDIES: 05/20/2023 CT pelvis. TECHNICAL: Enhanced CT of the pelvis with axial images. Sagittal oblique and coronal oblique reformatted images were created. Contrast: Isovue 370, 92 mL IV. FINDINGS: OSSEOUS STRUCTURES: Expansile enhancing mass replaces the entire left superior pubic ramus with extension into the soft tissues. The mass measures up to 9 cm in length and up to 3.7 cm in width. The mass involves the left pubic body and left medial and superior acetabulum. Findings are new in the interval. Findings are worrisome for a metastasis. No pathologic fracture. No additional osseous lesions are evident. No evidence for chronic avascular necrosis. JOINT SPACES: Right Hip: No effusion. Mild degenerative changes. Left Hip: No effusion. Mild degenerative changes. SI Joints: Mild degenerative changes. Lumbar Spine: Degenerative changes in the lumbar interspaces and lumbosacral facets. MUSCLES AND TENDONS: No intramuscular mass or hematoma. No muscle atrophy. No retracted tendon tear. SOFT TISSUES: No subcutaneous edema, fluid collection or hematoma. INTRAPELVIC CONTENTS: Hysterectomy. Scattered colonic diverticula. No inguinal hernia. NEUROVASCULAR STRUCTURES: No abnormality of the neurovascular structures. IMPRESSION: 1. Osseous lesion completely replaces the left superior pubic ramus with extension into the pubic body and acetabulum. Findings worrisome for a metastasis. No pathologic fracture. 2. Degenerative changes in the hips, SI joints and lumbar spine. 3. Hysterectomy. 4. Scattered colonic diverticula. Please note that all CT scans at this facility use dose modulation, iterative reconstruction, and/or weight-based dosing when appropriate to reduce radiation dose to as low as reasonably achievable. Dictated by Shahid Garcia MD @ 08/26/2024 2:06:21 PM (Electronically Signed)
== END 2024-08-25 16:04 | disposition home or self-care (01) ==
LOC: CT 16:04
PROVIDERS: PCP Family Medicine; Visit Provider Family Medicine
DX: M25.559 Pain in unspecified hip (principal); M89.9 Disorder of bone, unspecified; M16.0 Bilateral primary osteoarthritis of hip; M47.896 Other spondylosis, lumbar region; K57.30 Diverticulosis of large intestine without perforation or abscess without bleeding
CPT/HCPCS: 36415; 72193; 82565; Q9967